=== PATIENT | male | born 1950 | race Caucasian/White ===

== ENCOUNTER 2021-01-21 11:20 | Outpatient (REF) | payer MEDICARE, SELFPAY ==
--- NOTE | ~2021-01-21 | XR_ITS ---
EXAMINATION: XR HIP, LEFT CLINICAL INFORMATION: Left hip pain COMPARISON: None TECHNIQUE: AP view pelvis is performed along with AP and frog-lateral projections left hip for a total of 3 views. FINDINGS: The left hip shows no fracture or dislocation or destructive process. There is no focal joint narrowing or erosive change or chondrocalcinosis. Soft tissue planes appear normal. The SI joints and pubis show no diastases. The bony pelvis is intact. No destructive process. There are degenerative changes lower lumbar spine with disc narrowing L4-L5 and likely at L5-S1. 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 XR/XR hip LT w PEL1V IMPRESSION: 1. Unremarkable left hip. No joint narrowing or erosive change. 2. Degenerative changes lumbosacral spine. 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
== END 2021-01-21 11:21 | disposition home or self-care (01) ==
LOC: HO.HMGCX 11:20
PROVIDERS: Visit Provider Hospitalist
DX: M25.552 Pain in left hip (principal)
CPT/HCPCS: 73502

== ENCOUNTER 2021-04-23 16:04 | Observation (INO) | payer MEDICARE, OTHER, SELFPAY ==
[2021-04-23] VITALS (9 sets, daily range): BP systolic 104–154; BP diastolic 0–104; PULSE 82–100; RESP 14–20; TEMP 36.6–36.7; O2SAT 96–97; BMI 43.6
--- NOTE | ~2021-04-23 | XR_ITS ---
EXAMINATION: XR CHEST CLINICAL INFORMATION: New onset atrial fibrillation COMPARISON: None available TECHNIQUE: Frontal portable upright view of the chest was obtained. FINDINGS: Devices overlie the patient. The transverse diameter of the trachea is low normal. Cardiac size is within normal limits. There is no hilar mass. The vasculature is normal. There is no consolidation or edema. No significant pleural fluid or pneumothorax. Healed posterolateral right lower rib deformity. XR/XR chest 1V IMPRESSION: No pneumonia or edema.
--- NOTE | 2021-04-23 16:27 | ECG_ITS ---
Test Reason : ARRHYTHMIA Blood Pressure : / mmHG Vent. Rate : 089 BPM Atrial Rate : 067 BPM P-R Int : 000 ms QRS Dur : 080 ms QT Int : 342 ms P-R-T Axes : 000 -05 -05 degrees QTc Int : 416 ms Atrial fibrillation Low voltage QRS Nonspecific ST abnormality Left axis deviation Abnormal ECG When compared with ECG of 28-MAR-2016 15:18, Atrial fibrillation is new Heart rate has increased Nonspecific ST abnormality is new Referred By: Aurelia Cortes Electronically Signed By:ALBERTO YEE MD
--- NOTE | 2021-04-23 16:36 | ED.GENADULT ---
HPI - General Adult General Chief complaint: General Medical Stated complaint: afib Time Seen by Provider: 04/23/21 16:12 Source: patient and EMS Mode of arrival: EMS History of Present Illness HPI narrative: 70-year-old male with past medical history of hypertension, anxiety, osteoarthritis, iron deficiency anemia, sleep apnea, hyperlipidemia, cigarette smoking, atherosclerosis, AVILEZ, BIBA from PCP office s/p syncopal episode [employer] [facility]. Per notes in system patient stood up to be weighed, became lightheaded and diaphoretic and reports near-syncopal episode, was noted to be hypertensive 178/108 and tachycardic to 102 in rapid AFib which is a new diagnosis for the patient. Patient reports symptomatic improvement at present. Denies headache, CP/SOB during incident or now. Denies numbness, tingling, fever, chills, cough, LE edema, recent trauma history blood clots, does not take anticoagulation Related Data Previous Rx's Medication Instructions Recorded oxycodone-acetaminophen 10 mg-325 1 tab PO Q6H PRN #10 tab 01/21/21 mg tablet (Percocet) prednisone 20 mg tablet 20 mg PO .COMPLEX #18 tab 01/21/21 Allergies Allergy/AdvReac Type Severity Reaction Status Date / Time No Known Allergies Allergy Verified 04/23/21 16:18 [No Known Allergies*] Review of Systems Review of Systems: Constitutional: No Fever, No Chills, No Fatigue, No Malaise ENT/Mouth: No Ear Pain, No Nasal Congestion, No sore throat Eyes: No Eye Pain, No Swelling, No Redness, No Vision Changes Cardiovascular: No Chest Pain, No SOB, No Dyspnea on Exertion, No Orthopnea, No Edema, No Palpitations Respiratory: No Cough, No Dyspnea Gastrointestinal: + Nausea (resolved), No Vomiting, No Diarrhea, No Constipation, No Abdominal pain Genitourinary:No Dysuria, No Urinary Frequency, No Hematuria, No Urinary Incontinence, No Flank Pain Musculoskeletal: No joint pain, No Myalgias, No Joint Swelling Skin: No Skin Lesions, No rash Neuro: No Weakness, No Numbness, No Paresthesias, No Loss of Consciousness,+near syncope, + lightheadedness (resolved), No Headache Yes all other systems are reviewed and are negative Neurologic: Denies Abnormal speech present [facility] Past Medical History Attestation statement: The following information was validated with the patient. Medical History (Updated 04/23/21 @ 17:57 by BRADEN Velez) Anxiety Atherosclerosis of [place] coronary artery of [place] heart with angina pectoris Dyslipidemia HTN (hypertension) Leg edema Reactive depression Sleep apnea Social History Social History Advance Directives: No Advance Directives Information Provided: No Physical Exam Vital Signs: Vital Signs: Last Vital Signs Temp 98 F 04/23/21 16:31 Pulse 90 04/23/21 17:17 Resp 14 04/23/21 16:31 BP 154/104 H 04/23/21 17:17 Pulse Ox 96 04/23/21 16:31 Body Mass Index 43.6 Const: General: cooperative, healthy appearing, no acute distress, well developed, alert and awake Orientation/consciousness: patient oriented x3 Limitations: no limitations HENMT: Head: Yes normal to inspection Ears: hearing grossly normal bilaterally General nose exam: Normal external nose present Face and sinus: Yes normal facial exam Eyes: General: appearance normal, both eyes and all related structures Pupils: Equal, round and reactive pupils present EOM: EOMs intact bilaterally Neck: Neck: Yes normal visual inspection and Yes no meningeal signs Resp: Effort & Inspection: normal respiratory effort Auscultation: clear to auscultation bilaterally, no rales, no rhonchi and no wheezes Cardio: Rhythm: abnormal rhythm Heart sounds: S1 normal heart sound present and S2 normal heart sound present GI: Inspection: Yes normal to inspection Palpation (GI): Soft to palpation, nontender, no guarding and not rigid Skin: Rashes: no rashes Wounds: no wounds Neuro: General: patient oriented x3, tone normal, moves all extremities, no meningeal signs, no focal motor deficits and CN's II-XI intact bilaterally Cranial nerves: Yes CN's II-XII intact bilaterally and Yes Equal, round and reactive pupils present Cognition (Neuro): normal cognition Speech: No Abnormal speech present Gait exam (Neuro): Normal gait present Motor exam (neuro): 5/5 motor strength present throughout, Pronator motor function not present and no tremor noted Coordination: [id number] test normal Romberg Test: Negative Extrem: Other: +1 bilateral lower extremity pitting edema General: Yes normal to inspection Course Course Course Narrative: -heart rate ranging between 92-115 >> will give 10 mg of IV Diltiazem and re-evaluate -173-- no leukocytosis, Initial troponin 6.4 > will obtain 3hr repeat. BNP mildly elevated at 154 > plan to admit for observation -patient given 1st dose of Eliquis in the ED. -175--patient admitted to hospitalist team Medical Decision Making [facility] Narrative Medical decision making narrative: 70-year-old male with past medical history of hypertension, anxiety, osteoarthritis, iron deficiency anemia, sleep apnea, hyperlipidemia, cigarette smoking, atherosclerosis, AVILEZ, BIBA from PCP office s/p syncopal episode [employer]. Per notes in system patient stood up to be weighed, became lightheaded and diaphoretic and reports near-syncopal episode, was noted to be hypertensive 178/108 and tachycardic to 102 in rapid AFib which is a new diagnosis for the patient.On exam tachycardic 89-105 in AFib, NAD/nontoxic-appearing, no focal neuro deficits, lungs CTA, 1+ bilateral lower extremity pitting edema. Concern for new onset AFib. Rule out ACS vs CHF vs infectious etiology/metabolic abnormalities Plan: EKG, labs, UA, CXR, orthostatics Patient's [id number] Score =3 Lab Data Result diagrams: 04/23/21 17:03 04/23/21 17:03 Labs: Lab Results 04/23/21 04/23/21 04/23/21 Range/Units 17:03 17:03 17:03 WBC 9.4 (4.8-10.8) X10*3/uL RBC 4.71 (4.60-5.80) X10*6/uL Hgb 14.1 (14.0-18.0) g/dl Hct 41.7 L (42-52) % MCV 88.5 (80-98) fL MCH 29.9 (27.0-33.0) pg MCHC 33.8 (31.0-36.0) g/dl RDW 13.2 (11.0-16.0) % Plt Count 194 (160-400) X10*3/uL MPV 9.8 (9.4-12.4) fL Immature Gran % (Auto) 0.5 H (0.0-0.4) % Neut % (Auto) 74.5 H (45-73) % Lymph % (Auto) 14.5 L (20-40) % Harlan % (Auto) 8.1 (2-11) % Eos % (Auto) 1.7 (0-4) % Baso % (Auto) 0.7 (0-2) % Lymph # (Auto) 1.4 (1.2-4.9) X10*3/uL Harlan # (Auto) 0.8 (0.1-1.2) X10*3/uL Eos # (Auto) 0.2 (0.0-0.4) X10*3/uL Baso # (Auto) 0.1 (0.0-0.2) X10*3/uL Abs Immat Gran (auto) 0.05 H (0.00-0.03) X10*3/uL Absolute Neuts (auto) 7.0 (2.0-8.3) X10*3/uL Absolute Nucleated RBC 0.000 (0.0-0.012) X10*3/uL Nucleated RBC % (auto) 0.0 (0.0-0.2) /100WBC PT (9.9-13.0) SEC INR (0.9-1.1) APTT (24.1-38.0) SEC Sodium 137 (135-145) mmol/L Potassium 4.5 (3.3-5.1) mmol/L Chloride 104 (96-108) mmol/L Carbon Dioxide 23 (22-29) mmol/L Anion Gap 15 (12-20) BUN 19 H (9-16) mg/dL Creatinine 1.08 (0.5-1.4) mg/dL Estim Creat Clear Calc 95.7 Estimated GFR > 60 Random Glucose 98 (60-115) mg/dL Calcium 9.2 (8.4-10.2) mg/dL Magnesium 1.7 (1.6-2.6) mg/dL Total Bilirubin 0.7 (0.0-1.0) mg/dL Direct Bilirubin 0.3 (0.0-0.5) mg/dL AST 16 (5-37) U/L ALT 11 (0-40) U/L Alkaline Phosphatase 75 (39-117) U/L Troponin I High Sens 6.4 (<3.5-35.0) ng/L B-Natriuretic Peptide (<100) pg/mL Total Protein 7.2 (6.5-8.0) g/dL Albumin 4.0 (3.5-5.0) g/dL COVID-19 (ELDA) (Negative) COVID-19 Clin Com 04/23/21 04/23/21 04/23/21 Range/Units 17:03 17:03 17:03 WBC (4.8-10.8) X10*3/uL RBC (4.60-5.80) X10*6/uL Hgb (14.0-18.0) g/dl Hct (42-52) % MCV (80-98) fL MCH (27.0-33.0) pg MCHC (31.0-36.0) g/dl RDW (11.0-16.0) % Plt Count (160-400) X10*3/uL MPV (9.4-12.4) fL Immature Gran % (Auto) (0.0-0.4) % Neut % (Auto) (45-73) % Lymph % (Auto) (20-40) % Harlan % (Auto) (2-11) % Eos % (Auto) (0-4) % Baso % (Auto) (0-2) % Lymph # (Auto) (1.2-4.9) X10*3/uL Harlan # (Auto) (0.1-1.2) X10*3/uL Eos # (Auto) (0.0-0.4) X10*3/uL Baso # (Auto) (0.0-0.2) X10*3/uL Abs Immat Gran (auto) (0.00-0.03) X10*3/uL Absolute Neuts (auto) (2.0-8.3) X10*3/uL Absolute Nucleated RBC (0.0-0.012) X10*3/uL Nucleated RBC % (auto) (0.0-0.2) /100WBC PT 11.3 (9.9-13.0) SEC INR 1.0 (0.9-1.1) APTT 30.1 (24.1-38.0) SEC Sodium (135-145) mmol/L Potassium (3.3-5.1) mmol/L Chloride (96-108) mmol/L Carbon Dioxide (22-29) mmol/L Anion Gap (12-20) BUN (9-16) mg/dL Creatinine (0.5-1.4) mg/dL Estim Creat Clear Calc Estimated GFR Random Glucose (60-115) mg/dL Calcium (8.4-10.2) mg/dL Magnesium (1.6-2.6) mg/dL Total Bilirubin (0.0-1.0) mg/dL Direct Bilirubin (0.0-0.5) mg/dL AST (5-37) U/L ALT (0-40) U/L Alkaline Phosphatase (39-117) U/L Troponin I High Sens (<3.5-35.0) ng/L B-Natriuretic Peptide 154 H (<100) pg/mL Total Protein (6.5-8.0) g/dL Albumin (3.5-5.0) g/dL COVID-19 (ELDA) Negative (Negative) COVID-19 Clin Com See Note ECG Data Attestation: I personally reviewed and interpreted this ECG as follows: Interpretation: EKG AFib at a rate of 89 QRS 80 QTC 416 Nonischemic/no STEMI Low-voltage QRS Discharge Plan Discharge Clinical Impression: New onset a-fib, Near syncope Patient Disposition: Admitted As Inpatient Prescriptions: No Action oxycodone-acetaminophen [Percocet] 10-325 mg tablet 1 tab PO Q6H PRN (Reason: pain) Qty: 10 RF: 0 prednisone 20 mg tablet 20 mg PO .COMPLEX Qty: 18 RF: 0
[2021-04-23 17:09] LABS: MANUAL DIFF FLAG NO
[2021-04-23 17:10] LABS: Basophils Absolute Auto 0.1 X10*3/uL (0.0-0.2); Basophils Percent Auto 0.7 % (0-2); Eosinophils Absolute Auto 0.2 X10*3/uL (0.0-0.4); Eosinophils Percent Auto 1.7 % (0-4); Hematocrit 41.7 % (42-52); Hemoglobin 14.1 g/dl (14.0-18.0); Imm Gran Abs Auto 0.05 X10*3/uL (0.00-0.03); Imm Gran Pct Auto 0.5 % (0.0-0.4); Lymphocytes Absolute Auto 1.4 X10*3/uL (1.2-4.9); Lymphocytes Percent Auto 14.5 % (20-40); Mean Corpuscular HGB Conc 33.8 g/dl (31.0-36.0); Mean Corpuscular Hemoglobin 29.9 pg (27.0-33.0); Mean Corpuscular Volume 88.5 fL (80-98); Mean Platelet Volume 9.8 fL (9.4-12.4); Monocytes Absolute Auto 0.8 X10*3/uL (0.1-1.2); Monocytes Percent Auto 8.1 % (2-11); Neutrophils Percent Auto 74.5 % (45-73); Platelet Count 194 X10*3/uL (160-400); Red Blood Count 4.71 X10*6/uL (4.60-5.80); Red Cell Distribution Width 13.2 % (11.0-16.0); White Blood Count 9.4 X10*3/uL (4.8-10.8)
[2021-04-23 17:16] LABS: Prothrombin Time 11.3 SEC (9.9-13.0)
[2021-04-23 17:18] LABS: Partial Thromboplastin Time 30.1 SEC (24.1-38.0)
[2021-04-23 17:26] LABS: COVID-19 Test Negative (Negative); IDNOW Serial# 55D5AD1C
[2021-04-23 17:27] LABS: Alanine Aminotransferase 11 U/L (0-40); Alkaline Phosphatase 75 U/L (39-117); Anion Gap 15 (12-20); Aspartate Amino Transferase 16 U/L (5-37); Bilirubin Direct 0.3 mg/dL (0.0-0.5); Bilirubin Total 0.7 mg/dL (0.0-1.0); Blood Urea Nitrogen 19 mg/dL (9-16); Calcium 9.2 mg/dL (8.4-10.2); Carbon Dioxide 23 mmol/L (22-29); Chloride 104 mmol/L (96-108); Creatinine Clr Calc Pharmacy 95.7; Estimated Glomerular Filt Rate > 60; Glucose Random 98 mg/dL (60-115); Magnesium 1.7 mg/dL (1.6-2.6); Potassium 4.5 mmol/L (3.3-5.1); Sodium 137 mmol/L (135-145); Total Protein 7.2 g/dL (6.5-8.0)
[2021-04-23 17:31] LABS: B Type Natriuretic Peptide 154 pg/mL (<100); Troponin-I High Sensitivity 6.4 ng/L (<3.5-35.0)
--- NOTE | 2021-04-23 18:26 | P.HPHOSP_ITS ---
History of Present Illness Date of Service: 04/23/21 Chief Complaint: Dizziness 70-year-old male with history of coronary artery disease No details,, hypertension not on meds, hyperlipidemia on no medds, anxiety. He presented to outpatient clinic today for routine checkup when that while walking him he felt very dizzy and felt like he was going to pass staff and therefore sent to the emergency room where he was noted to be in atrial fibrillation with rapid ventricular response this being a 1st episode. In the ED he was given IV Cardizem 10 mg with a subsequent decrease in the heart rate he remained in atri al fibrillation yet the rate is much better controlled. He was also given apixaban 5 mg once. He reports no chest pain or shortness of breath. Review of Systems Review of Systems: Dizziness, no chest pain, no sob Yes all other systems are reviewed and are negative [facility] Medical History Anxiety Atherosclerosis of [place] coronary artery of [place] heart with angina pectoris Dyslipidemia HTN (hypertension) Leg edema Reactive depression Sleep apnea Family History (Updated 04/23/21 @ 18:27 by Willi Rogers MD) Other Brain cancer Pertinent family history: . Social History Advance Directives: No Advance Directives Information Provided: No Meds Allergies Allergy/AdvReac Type Severity Reaction Status Date / Time No Known Allergies Allergy Verified 04/23/21 16:18 [No Known Allergies*] Physical Exam Vital Signs and Narrative: Vital Signs: Last Vital Signs Temp 98 F 04/23/21 16:31 Pulse 90 04/23/21 17:17 Resp 14 04/23/21 16:31 BP 154/104 H 04/23/21 17:17 Pulse Ox 96 04/23/21 16:31 Body Mass Index 43.6 Constitutional Awake and Alert, No apparent distress HEENT, anicteric, normal eye movment Neck Supple, No lymphadenopathy Cardiovascular RRR, No M/R/G, S1 S2, No S3 S4, No pedal edema Respiratory Lungs clear, No respiratory distress Gastrointestinal Non tender, Non-distended Skin No rash,lower legs skin changes consistent with chronic venous stasis Neurological Alert & oriented x3 Psychological Appropriate affect Results Labs CBC and Chem 7: 04/23/21 17:03 04/23/21 17:03 Labs: Laboratory Results - last 24 hr 04/23/21 04/23/21 04/23/21 17:03 17:03 17:03 MCV 88.5 MCH 29.9 MCHC 33.8 RDW 13.2 Plt Count 194 MPV 9.8 Immature Gran % (Auto) 0.5 H Neut % (Auto) 74.5 H Lymph % (Auto) 14.5 L Maries % (Auto) 8.1 Eos % (Auto) 1.7 Baso % (Auto) 0.7 Lymph # (Auto) 1.4 Maries # (Auto) 0.8 Eos # (Auto) 0.2 Baso # (Auto) 0.1 Abs Immat Gran (auto) 0.05 H Absolute Neuts (auto) 7.0 Absolute Nucleated RBC 0.000 Nucleated RBC % (auto) 0.0 PT INR APTT Anion Gap 15 Estim Creat Clear Calc 95.7 Estimated GFR > 60 Random Glucose 98 Calcium 9.2 Magnesium 1.7 Total Bilirubin 0.7 Direct Bilirubin 0.3 AST 16 ALT 11 Alkaline Phosphatase 75 Troponin I High Sens 6.4 B-Natriuretic Peptide Total Protein 7.2 Albumin 4.0 COVID-19 (ELDA) COVID-19 Clin Com 04/23/21 04/23/21 04/23/21 17:03 17:03 17:03 MCV MCH MCHC RDW Plt Count MPV Immature Gran % (Auto) Neut % (Auto) Lymph % (Auto) Maries % (Auto) Eos % (Auto) Baso % (Auto) Lymph # (Auto) Maries # (Auto) Eos # (Auto) Baso # (Auto) Abs Immat Gran (auto) Absolute Neuts (auto) Absolute Nucleated RBC Nucleated RBC % (auto) PT 11.3 INR 1.0 APTT 30.1 Anion Gap Estim Creat Clear Calc Estimated GFR Random Glucose Calcium Magnesium Total Bilirubin Direct Bilirubin AST ALT Alkaline Phosphatase Troponin I High Sens B-Natriuretic Peptide 154 H Total Protein Albumin COVID-19 (ELDA) Negative COVID-19 Clin Com See Note Imaging Radiologist's Impressions: Impressions Chest X-Ray 04/23/21 16:27 IMPRESSION: No pneumonia or edema. Assessment and Plan (1) New onset a-fib: Status: Acute 70-year-old male with history of CAD an OS, hypertension not on medication, hyperlipidemia not on med presented with a dizziness and found to have new onset atrial fibrillation. Plan: New AFIB with RVR, now rate controlled following IV Cardizem. Will continue our Cardizem orally. Continue Eliquis for stroke prevention. Get Cardiology consultation and echocardiogram. Quality Stroke Does the patient have a stroke diagnosis?: No VTE Prior VTE?: No VTE Risk Level:: Medical - moderate - high VTE Device Contraindication: Treatment Not Indicated VTE Drug Contraindication: N/A - Med Ordered
[2021-04-23] MEDS: dilTIAZem HCL 50 MG/10 ML VIAL 10 MG IVPUSH (18:30)
[2021-04-23] MEDS: Apixaban 5 MG TABLET PO (18:30)
[2021-04-23 19:15] LABS: Thyroid Stimulating Hormone 0.91 uIU/mL (0.32-4.0)
--- NOTE | 2021-04-23 19:22 | PHA.MEDREC ---
Pharmacy Consult ? Medication Reconciliation Pharmacy has completed the medication reconciliation. Spoke with patient in ED and he is not taking any medications on a regular basis at home. .
[2021-04-23 20:08] LABS: Appearance Urine CLEAR; Color Urine YELLOW; Glucose Urine UA NEG (NEG); Leukocyte Esterase Urine NEG (NEG); Nitrite Urine NEG (NEG); Specific Gravity - Urine 1.025 (1.005-1.025); Urine Blood NEG (NEG); Urine Ketones NEG (NEG); Urine Protein NEG (NEG-TRACE)
[2021-04-23 20:24] LABS: Amphetamine Screen Urine Not Detected (Not Detect); Barbiturates, Urine Not Detected (Not Detect); Benzodiazepines Screen Urine Not Detected (Not Detect); Cannabinoid Screen Urine POSITIVE (Not Detect); Cocaine Screen Urine Not Detected (Not Detect); Fentanyl, urine Not Detected (Not Detect); Opiate Screen Urine Not Detected (Not Detect); Phencyclidine Screen Urine Not Detected (Not Detect)
[2021-04-23 20:25] LABS: Troponin-I High Sensitivity 5.6 ng/L (<3.5-35.0)
[2021-04-23] MEDS: Metoprolol Tartrate 25 MG TABLET PO (21:38)
--- NOTE | 2021-04-23 22:36 | PC.NURSE ---
spoke with pt sister as pt allowed. pt awaiting bed assignment, aware of plan to be admit. given pillow and blanket at this time. reports no ccomplaints.
--- NOTE | 2021-04-24 | ECG_ITS ---
Test Reason : AFIB Blood Pressure : / mmHG Vent. Rate : 086 BPM Atrial Rate : 113 BPM P-R Int : 000 ms QRS Dur : 078 ms QT Int : 354 ms P-R-T Axes : 000 -02 004 degrees QTc Int : 423 ms Atrial fibrillation Low voltage QRS Nonspecific ST abnormality Abnormal ECG When compared with ECG of 23-APR-2021 16:35, No significant change was found Referred By: Willi [facility] Electronically Signed By:ALBERTO YEE MD
--- NOTE | 2021-04-24 02:34 | PC.NURSE ---
pt is sleeping, no sign of distress.
[2021-04-24 05:37] VITALS: BP 119/70; PULSE 72
[2021-04-24 05:38] VITALS: BP 124/81; BP 159/102; PULSE 83; PULSE 86
[2021-04-24 07:34] VITALS: BP 142/95; PULSE 93; RESP 20; TEMP 37.1; O2SAT 97
[2021-04-24] MEDS: 0.9 % Sodium Chloride Flush 3 ML SYRINGE IVFLUSH (07:34)
[2021-04-24 08:13] LABS: Cholesterol 174 mg/dL; HDL Cholesterol 53 mg/dL; LDL Cholesterol Calculated 101 mg/dl; Triglycerides 102 mg/dL
[2021-04-24 08:46] VITALS: BP 145/82; PULSE 83
[2021-04-24] MEDS: Metoprolol Tartrate 25 MG TABLET PO (08:46)
--- NOTE | 2021-04-24 09:47 | MHC.CM.PN ---
Met with patient in regards to discharge planning. Patient lives with his mother, ambulates with a cane and had no services prior to coming to the hospital. Services not anticipated to be needed because patient is not homebound. PCP verified. Copy of HCP verifed to be on file. Obs notice explained and signed. Received [employer] vaccines on 11/06 and 12/04. Patient's sister will transport him home when he is medically stable.Continue to monitor for d/c needs.
--- NOTE | 2021-04-24 09:52 | P.DS_ITS ---
DS: Providers Provider Date of Service: 04/24/21 Date of admission: 04/23/21 18:32 Primary care physician: JOSE Alonzo Consults: 04/23/21 18:34 Consult to Cardiology Routine Consulting Provider: Edy Reveles Reason for consultation: new afig DS: Diagnosis Discharge Diagnosis (1) New onset a-fib: Status: Acute DS: Summary Hospital Course Hospital Course: Chief Complaint: Dizziness 70-year-old male with history of coronary artery disease No details,, hypertension not on meds, hyperlipidemia on no medds, anxiety.? He presented to outpatient clinic today for routine checkup when that while walking him he felt very dizzy and felt like he was going to pass staff and therefore sent to the emergency room where he was noted to be in atrial fibrillation with rapid ventricular response this being a 1st episode.? In the ED he was given IV Cardizem 10 mg with a subsequent decrease in the heart rate he remained in atrial fibrillation yet the rate is much better controlled.? He was also given apixaban 5 mg once.? He reports no chest pain or shortness of breath. Hospital course: Patient presented with dizziness and near syncope and noted to be in AFIB with RVR which is new to him, [id number]. In ED given IV cardizem which slowed slowed heart rate, cardiac enzymes negative. His heart rate remain controllled and started on Metoprolol 25 and Xarelto for anticoagulation and stroke prevention. Time Spent with Patient Time attestation: Total time spent providing and/or coordinating discharge services: Discharge coordination time: Greater than 30 minutes Quality: Stroke Does the patient have a stroke diagnosis?: No Physical Exam Vital Signs: Vital Signs: Last Vital Signs Temp 98.7 F 04/24/21 07:34 Pulse 83 04/24/21 08:46 Resp 20 04/24/21 07:34 BP 145/82 H 04/24/21 08:46 Pulse Ox 97 04/24/21 07:34 Body Mass Index 43.6 General: AO X 3, no acute distress Resp: CTA bilateral CVS: S1,S2, iregular iregular GI: +BS, NT, no distention Skin: No rash Neuro: motor grossly intact Psych: appropriate affect DS: Data Data Completed and Pending Labs on day of discharge: Laboratory Results - last 24 hr 04/23/21 04/23/21 04/23/21 17:03 17:03 17:03 WBC 9.4 RBC 4.71 Hgb 14.1 Hct 41.7 L MCV 88.5 MCH 29.9 MCHC 33.8 RDW 13.2 Plt Count 194 MPV 9.8 Immature Gran % (Auto) 0.5 H Neut % (Auto) 74.5 H Lymph % (Auto) 14.5 L [place] % (Auto) 8.1 Eos % (Auto) 1.7 Baso % (Auto) 0.7 Lymph # (Auto) 1.4 [place] # (Auto) 0.8 Eos # (Auto) 0.2 Baso # (Auto) 0.1 Abs Immat Gran (auto) 0.05 H Absolute Neuts (auto) 7.0 Absolute Nucleated RBC 0.000 Nucleated RBC % (auto) 0.0 PT INR APTT Sodium 137 Potassium 4.5 Chloride 104 Carbon Dioxide 23 Anion Gap 15 BUN 19 H Creatinine 1.08 Estim Creat Clear Calc 95.7 Estimated GFR > 60 Random Glucose 98 Calcium 9.2 Magnesium 1.7 Total Bilirubin 0.7 Direct Bilirubin 0.3 AST 16 ALT 11 Alkaline Phosphatase 75 Troponin I High Sens 6.4 B-Natriuretic Peptide Total Protein 7.2 Albumin 4.0 Triglycerides Cholesterol LDL Cholesterol, Calc HDL Cholesterol TSH 0.91 Urine Color Urine Appearance Urine pH Ur Specific [place] Urine Protein Urine Glucose (UA) Urine Ketones Urine Blood Urine Nitrite Ur Leukocyte Esterase Urine Opiates Screen Urine Fentanyl Screen Ur Barbiturates Screen Ur Phencyclidine Scrn Ur Amphetamines Screen U Benzodiazepines Scrn Urine Cocaine Screen U Marijuana (THC) Screen COVID-19 (ELDA) COVID-19 Clin Com 04/23/21 04/23/21 04/23/21 17:03 17:03 17:03 WBC RBC Hgb Hct MCV MCH MCHC RDW Plt Count MPV Immature Gran % (Auto) Neut % (Auto) Lymph % (Auto) [place] % (Auto) Eos % (Auto) Baso % (Auto) Lymph # (Auto) [place] # (Auto) Eos # (Auto) Baso # (Auto) Abs Immat Gran (auto) Absolute Neuts (auto) Absolute Nucleated RBC Nucleated RBC % (auto) PT 11.3 INR 1.0 APTT 30.1 Sodium Potassium Chloride Carbon Dioxide Anion Gap BUN Creatinine Estim Creat Clear Calc Estimated GFR Random Glucose Calcium Magnesium Total Bilirubin Direct Bilirubin AST ALT Alkaline Phosphatase Troponin I High Sens B-Natriuretic Peptide 154 H Total Protein Albumin Triglycerides Cholesterol LDL Cholesterol, Calc HDL Cholesterol TSH Urine Color Urine Appearance Urine pH Ur Specific [place] Urine Protein Urine Glucose (UA) Urine Ketones Urine Blood Urine Nitrite Ur Leukocyte Esterase Urine Opiates Screen Urine Fentanyl Screen Ur Barbiturates Screen Ur Phencyclidine Scrn Ur Amphetamines Screen U Benzodiazepines Scrn Urine Cocaine Screen U Marijuana (THC) Screen COVID-19 (ELDA) Negative COVID-19 Clin Com See Note 04/23/21 04/23/21 04/23/21 19:44 19:59 19:59 WBC RBC Hgb Hct MCV MCH MCHC RDW Plt Count MPV Immature Gran % (Auto) Neut % (Auto) Lymph % (Auto) [place] % (Auto) Eos % (Auto) Baso % (Auto) Lymph # (Auto) [place] # (Auto) Eos # (Auto) Baso # (Auto) Abs Immat Gran (auto) Absolute Neuts (auto) Absolute Nucleated RBC Nucleated RBC % (auto) PT INR APTT Sodium Potassium Chloride Carbon Dioxide Anion Gap BUN Creatinine Estim Creat Clear Calc Estimated GFR Random Glucose Calcium Magnesium Total Bilirubin Direct Bilirubin AST ALT Alkaline Phosphatase Troponin I High Sens 5.6 B-Natriuretic Peptide Total Protein Albumin Triglycerides Cholesterol LDL Cholesterol, Calc HDL Cholesterol TSH Urine Color YELLOW Urine Appearance CLEAR Urine pH 6.0 Ur Specific [place] 1.025 Urine Protein NEG Urine Glucose (UA) NEG Urine Ketones NEG Urine Blood NEG Urine Nitrite NEG Ur Leukocyte Esterase NEG Urine Opiates Screen Not Detected Urine Fentanyl Screen Not Detected Ur Barbiturates Screen Not Detected Ur Phencyclidine Scrn Not Detected Ur Amphetamines Screen Not Detected U Benzodiazepines Scrn Not Detected Urine Cocaine Screen Not Detected U Marijuana (THC) Screen POSITIVE H COVID-19 (ELDA) COVID-19 Clin Com 04/24/21 07:18 WBC RBC Hgb Hct MCV MCH MCHC RDW Plt Count MPV Immature Gran % (Auto) Neut % (Auto) Lymph % (Auto) [place] % (Auto) Eos % (Auto) Baso % (Auto) Lymph # (Auto) [place] # (Auto) Eos # (Auto) Baso # (Auto) Abs Immat Gran (auto) Absolute Neuts (auto) Absolute Nucleated RBC Nucleated RBC % (auto) PT INR APTT Sodium Potassium Chloride Carbon Dioxide Anion Gap BUN Creatinine Estim Creat Clear Calc Estimated GFR Random Glucose Calcium Magnesium Total Bilirubin Direct Bilirubin AST ALT Alkaline Phosphatase Troponin I High Sens B-Natriuretic Peptide Total Protein Albumin Triglycerides 102 Cholesterol 174 LDL Cholesterol, Calc 101 HDL Cholesterol 53 TSH Urine Color Urine Appearance Urine pH Ur Specific [place] Urine Protein Urine Glucose (UA) Urine Ketones Urine Blood Urine Nitrite Ur Leukocyte Esterase Urine Opiates Screen Urine Fentanyl Screen Ur Barbiturates Screen Ur Phencyclidine Scrn Ur Amphetamines Screen U Benzodiazepines Scrn Urine Cocaine Screen U Marijuana (THC) Screen COVID-19 (ELDA) COVID-19 Clin Com Discharge Plan Discharge Anticipated Discharge Date/Time: 04/24/21 09:50 Patient Disposition: Home, Self-Care Referrals: Reji Delgado, [employer] [Primary Care Provider] - 1 Week Discharge Medications: No Action No Known Home Meds RF: 0 Diet: advance to usual diet Activity on Discharge: As tolerated Stand Alone Forms: Patient Portal Discharge page Care Plan Goals: Control heart rate, improving stroke. Health Concerns: Atrial fibrillation Plan of Treatment: Take metoprolol as directed, take Xarelto to prevent stroke Assessment: As above
[2021-04-24] MEDS: Rivaroxaban 20 MG TABLET PO (10:13)
--- NOTE | 2021-04-24 10:31 | PM.CNCAR ---
History of Present Illness History of Present Illness Date of Service: 04/24/21 Requesting physician: [facility] Consult reason: atrial fibrillation and other Chief complaint: Atrial fibrillation, near syncope Narrative: I was requested to see Andre in cardiology consultation today for symptoms of near syncope and atrial fibrillation. He is a 70-year-old male who has not seen a primary care physician for few years. Has prior history of arthritis status post left knee replacement which as per him has limiting his activity level, obesity, hypertension but currently not on any medications. He present hospital yesterday after seeing his primary care physician for the 1st time yesterday. When he went into the examining room he suddenly felt lightheaded and felt like he was going to pass out. Evaluation for find that time was noted to be in atrial fibrillation rapid ventricular response and was also noted to be hypertensive. He was then referred to the emergency room. In the emergency room his rate has been controlled with after IV Cardizem. He did receive 1 dose of apixaban. His rate has generally been well controlled. He says this morning he feels like his baseline. He has not had any lightheadedness. His heart rate is been well controlled. He had no symptoms of palpitations, chest pain, shortness of breath yesterday. Has had no recent illnesses.His serial troponins are flat and within normal limits. His TSH is within normal limits. Review of Systems Constitutional: Constitutional: Reports no additional constitutional complaints Eyes: Eyes: Reports no additional eye complaints Cardiovascular: Cardiovascular: Denies chest pain, Denies irregular heart rhythm, Reports lightheadedness, Denies Loss of Consciousness, Denies palpitations and Denies dyspnea Respiratory: Respiratory: Reports no additional respiratory complaints and Denies dyspnea Gastrointestinal: Gastrointestinal: Reports no additional gastrointestinal complaints Musculoskeletal: Musculoskeletal: Reports no additional musculoskeletal complaints Integumentary/Breasts: Skin/Breast: Reports system reviewed and no additional complaints, except as docu Neurologic: Reports system reviewed and no additional complaints, except as documented Psychiatric: Psychiatric: Reports no additional psychiatric complaints Endocrine: Endocrine: Denies palpitations Hematologic/Lymphatic: Hematologic/Lymphatic: Reports no additional hematologic/lymphatic complaints Allergic/Immunologic: Allergic/Immunologic: Reports no additional allergic/immunologic complaints PMFSH Past Medical History Medical History Anxiety Atherosclerosis of [place] coronary artery of [place] heart with angina pectoris Dyslipidemia HTN (hypertension) Leg edema Reactive depression Sleep apnea Family History Family History Other Brain cancer Social History Social History Advance Directives: No Advance Directives Information Provided: No service: No Current occupational status: retired Meds Allergies Allergy/AdvReac Type Severity Reaction Status Date / Time No Known Allergies Allergy Verified 04/23/21 16:18 [No Known Allergies*] Active Medications: Current Medications Acetaminophen (Acetaminophen Supp 650 Mg Supp.Rect) 650 mg TN Q6H PRN PRN Reason: Pain, Mild (Pain Scale 1-3) Melatonin (Melatonin 3 Mg Tablet) 6 mg PO BEDTIME PRN PRN Reason: Insomnia Metoprolol Tartrate (Metoprolol Tartrate 25 Mg Tablet) 25 mg PO BID [facility]; Protocol Last Admin: 04/24/21 08:46 Dose: 25 mg Documented by: Pharmacy Consult (Consult Rx Perform Med Rec) 1 each MISCELLANE ONCE PRN PRN Reason: Consult order Rivaroxaban (Rivaroxaban 20 Mg Tablet) 20 mg PO DAILY [facility] Last Admin: 04/24/21 10:13 Dose: 20 mg Documented by: Sodium Chloride (0.9 % Sodium Chloride Flush 3 Ml Syringe) 3 ml IVFLUSH QSHIFT [facility] Last Admin: 04/24/21 07:34 Dose: 3 ml Documented by: Physical Exam Vital Signs: Vital Signs: Last Vital Signs Temp 98.7 F 04/24/21 07:34 Pulse 83 04/24/21 08:46 Resp 20 04/24/21 07:34 BP 145/82 H 04/24/21 08:46 Pulse Ox 97 04/24/21 07:34 Body Mass Index 43.6 Const: General: cooperative, comfortable, no acute distress, alert and awake Nutritional Appearance: obese Orientation/consciousness: patient oriented x3 HENMT: Head: Yes normocephalic and Yes atraumatic Neck: Neck: Yes trachea midline, Yes supple and Yes no JVD Chest: Chest palpation & inspection: normal inspection of the chest Resp: Effort & Inspection: normal respiratory effort Auscultation: clear to auscultation bilaterally Cardio: Jugular venous distension: no JVD Palpation: normal PMI Rate: regular rate Rhythm: abnormal rhythm irregularly irregular Heart sounds: S1 normal heart sound present, S2 normal heart sound present, no click, no gallops, no murmurs and no rubs GI: Inspection: Yes obesity Auscultation: normal bowel sounds Skin: General skin exam: no rashes or lesions noted Neuro: General: patient oriented x3 and no focal motor deficits Extrem: General: No clubbing, No cyanosis and Yes pedal edema Psych: Appearance: grossly normal Results Labs and Meds Result diagrams: 04/23/21 17:03 04/23/21 17:03 Lab results: Laboratory Results - last 24 hr 04/23/21 04/23/21 04/23/21 17:03 17:03 17:03 WBC 9.4 RBC 4.71 Hgb 14.1 Hct 41.7 L MCV 88.5 MCH 29.9 MCHC 33.8 RDW 13.2 Plt Count 194 MPV 9.8 Immature Gran % (Auto) 0.5 H Neut % (Auto) 74.5 H Lymph % (Auto) 14.5 L [place] % (Auto) 8.1 Eos % (Auto) 1.7 Baso % (Auto) 0.7 Lymph # (Auto) 1.4 [place] # (Auto) 0.8 Eos # (Auto) 0.2 Baso # (Auto) 0.1 Abs Immat Gran (auto) 0.05 H Absolute Neuts (auto) 7.0 Absolute Nucleated RBC 0.000 Nucleated RBC % (auto) 0.0 PT INR APTT Sodium 137 Potassium 4.5 Chloride 104 Carbon Dioxide 23 Anion Gap 15 BUN 19 H Creatinine 1.08 Estim Creat Clear Calc 95.7 Estimated GFR > 60 Random Glucose 98 Calcium 9.2 Magnesium 1.7 Total Bilirubin 0.7 Direct Bilirubin 0.3 AST 16 ALT 11 Alkaline Phosphatase 75 Troponin I High Sens 6.4 B-Natriuretic Peptide Total Protein 7.2 Albumin 4.0 Triglycerides Cholesterol LDL Cholesterol, Calc HDL Cholesterol TSH 0.91 Urine Color Urine Appearance Urine pH Ur Specific [place] Urine Protein Urine Glucose (UA) Urine Ketones Urine Blood Urine Nitrite Ur Leukocyte Esterase Urine Opiates Screen Urine Fentanyl Screen Ur Barbiturates Screen Ur Phencyclidine Scrn Ur Amphetamines Screen U Benzodiazepines Scrn Urine Cocaine Screen U Marijuana (THC) Screen COVID-19 (ELDA) COVID-19 Clin Com 04/23/21 04/23/2104/23/21 17:03 17:03 17:03 WBC RBC Hgb Hct MCV MCH MCHC RDW Plt Count MPV Immature Gran % (Auto) Neut % (Auto) Lymph % (Auto) [place] % (Auto) Eos % (Auto) Baso % (Auto) Lymph # (Auto) [place] # (Auto) Eos # (Auto) Baso # (Auto) Abs Immat Gran (auto) Absolute Neuts (auto) Absolute Nucleated RBC Nucleated RBC % (auto) PT 11.3 INR 1.0 APTT 30.1 Sodium Potassium Chloride Carbon Dioxide Anion Gap BUN Creatinine Estim Creat Clear Calc Estimated GFR Random Glucose Calcium Magnesium Total Bilirubin Direct Bilirubin AST ALT Alkaline Phosphatase Troponin I High Sens B-Natriuretic Peptide 154 H Total Protein Albumin Triglycerides Cholesterol LDL Cholesterol, Calc HDL Cholesterol TSH Urine Color Urine Appearance Urine pH Ur Specific [place] Urine Protein Urine Glucose (UA) Urine Ketones Urine Blood Urine Nitrite Ur Leukocyte Esterase Urine Opiates Screen Urine Fentanyl Screen Ur Barbiturates Screen Ur Phencyclidine Scrn Ur Amphetamines Screen U Benzodiazepines Scrn Urine Cocaine Screen U Marijuana (THC) Screen COVID-19 (ELDA) Negative COVID-19 Clin Com See Note 04/23/21 04/23/21 04/23/21 19:44 19:59 19:59 WBC RBC Hgb Hct MCV MCH MCHC RDW Plt Count MPV Immature Gran % (Auto) Neut % (Auto) Lymph % (Auto) [place] % (Auto) Eos % (Auto) Baso % (Auto) Lymph # (Auto) [place] # (Auto) Eos # (Auto) Baso # (Auto) Abs Immat Gran (auto) Absolute Neuts (auto) Absolute Nucleated RBC Nucleated RBC % (auto) PT INR APTT Sodium Potassium Chloride Carbon Dioxide Anion Gap BUN Creatinine Estim Creat Clear Calc Estimated GFR Random Glucose Calcium Magnesium Total Bilirubin Direct Bilirubin AST ALT Alkaline Phosphatase Troponin I High Sens 5.6 B-Natriuretic Peptide Total Protein Albumin Triglycerides Cholesterol LDL Cholesterol, Calc HDL Cholesterol TSH Urine Color YELLOW Urine Appearance CLEAR Urine pH 6.0 Ur Specific [place] 1.025 Urine Protein NEG Urine Glucose (UA) NEG Urine Ketones NEG Urine Blood NEG Urine Nitrite NEG Ur Leukocyte Esterase NEG Urine Opiates Screen Not Detected Urine Fentanyl Screen Not Detected Ur Barbiturates Screen Not Detected Ur Phencyclidine Scrn Not Detected Ur Amphetamines Screen Not Detected U Benzodiazepines Scrn Not Detected Urine Cocaine Screen Not Detected U Marijuana (THC) Screen POSITIVE H COVID-19 (ELDA) COVID-19 [facility] 04/24/21 07:18 WBC RBC Hgb Hct MCV MCH MCHC RDW Plt Count MPV Immature Gran % (Auto) Neut % (Auto) Lymph % (Auto) [place] % (Auto) Eos % (Auto) Baso % (Auto) Lymph # (Auto) [place] # (Auto) Eos # (Auto) Baso # (Auto) Abs Immat Gran (auto) Absolute Neuts (auto) Absolute Nucleated RBC Nucleated RBC % (auto) PT INR APTT Sodium Potassium Chloride Carbon Dioxide Anion Gap BUN Creatinine Estim Creat Clear Calc Estimated GFR Random Glucose Calcium Magnesium Total Bilirubin Direct Bilirubin AST ALT Alkaline Phosphatase Troponin I High Sens B-Natriuretic Peptide Total Protein Albumin Triglycerides 102 Cholesterol 174 LDL Cholesterol, Calc 101 HDL Cholesterol 53 TSH Urine Color Urine Appearance Urine pH Ur Specific [place] Urine Protein Urine Glucose (UA) Urine Ketones Urine Blood Urine Nitrite Ur Leukocyte Esterase Urine Opiates Screen Urine Fentanyl Screen Ur Barbiturates Screen Ur Phencyclidine Scrn Ur Amphetamines Screen U Benzodiazepines Scrn Urine Cocaine Screen U Marijuana (THC) Screen COVID-19 (ELDA) COVID-19 [facility] EKG shows atrial fibrillation with controlled ventricular response. No acute ST T wave changes Imaging Radiologist's impression: Impressions Chest X-Ray 04/23/21 16:27 IMPRESSION: No pneumonia or edema. Assessment and Plan (1) Near syncope: Status: Acute Patient presents symptoms of near syncope which are highly unusual for atrial fibrillation but can happen with rapid ventricular response. His symptoms have not resolved with rate control and he feels better. He has been ambulating. Can be discharged home. Advised adequate hydration. Advise adequate medical management and follow up as outpatient. He understands and agrees. (2) New onset a-fib: Status: Acute New onset atrial fibrillation in this elderly gentleman with no clear onset date. Could have happened yesterday with his symptoms but could be longer than that. Rate is adequately controlled at this point time. He has multiple risk factors including age, hypertension which is not managed, obstructive sleep apnea as well as obesity. This was discussed with him. Pathophysiology of atrial fibrillation was discussed in details. For now not knowing his exact onset at this point time will treat him with rate control. Start him on metoprolol 50 mg b.i.d. which will also help with his blood pressure control. Advised to monitor blood pressure at home and heart rate at home. His symptoms have resolved and I think he can be discharged home and will follow up with outpatient testing including echocardiogram, stress test on Holter monitor. Follow up in the office in 3-4 weeks time at which time will discuss rhythm control approach, will be most likely part will pursue given his new onset atrial fibrillation is age. This was discussed with him in details. CHADSVASc score of at least 2. Agree with oral anticoagulation therapy and Xarelto 20 mg inappropriate medication. This was discussed with him. He is agreeable. Will follow up as outpatient. Thank you for allowing me to partake in his care Procedures Date of Service Date of Service: 04/24/21
== END 2021-04-24 11:19 | disposition home or self-care (01) ==
LOC: HO.ED 17:57 → HO.EDOVER 18:52
PROVIDERS: Physician Assistant; Admitting Provider Internal Medicine; Emergency Provider Emergency Medicine; PCP Nurse Practitioner Family; Visit Provider Internal Medicine
DX: I48.91 Unspecified atrial fibrillation (principal); R55 Syncope and collapse; I25.119 Atherosclerotic heart disease of native coronary artery with unspecified angina pectoris; I10 Essential (primary) hypertension; I49.9 Cardiac arrhythmia, unspecified; E78.5 Hyperlipidemia, unspecified; D50.9 Iron deficiency anemia, unspecified; F41.8 Other specified anxiety disorders; F17.210 Nicotine dependence, cigarettes, uncomplicated; Z20.822 Contact with and (suspected) exposure to COVID-19; Z96.652 Presence of left artificial knee joint; Z79.899 Other long term (current) drug therapy
CPT/HCPCS: 36415; 71045; 80048; 80061; 80076; 80307; 81003; 83735; 83880; 84443; 84484; 85025; 85610; 85730; 87635; 93005; 96374; 99219; 99285

== ENCOUNTER → 2021-05-07 07:17 | Outpatient (REF) | payer MEDICARE, OTHER, SELFPAY ==
--- NOTE | ~2021-05-07 | NM_ITS ---
Myocardial perfusion study Indication: Atrial fibrillation to evaluate for myocardial ischemia Technique: The patient was brought in for a Lexiscan perfusion study on 05/07/2021. Patient performed low-level exercise and was injected 0.4 mg of Lexiscan intravenously. Within a minute of injection, 45 mCi of sestamibi was given intravenously. Images were obtained using the SPECT gamma camera interlaced with the gating device. Images were obtained in supine position. Resting perfusion study was performed on 05/08/2021. Patient was administered 45 mCi of sestamibi intravenously at rest. Images were then obtained in supine position. Images obtained with and without CT attenuation. Total DLP 194 mGy-cm. Images were processed with the software and compared side to side in short axis, horizontal long axis and vertical long axis views. Findings: The stress perfusion study showed nonattenuated show overall normal uptake of radiotracer in all segments of LV myocardium. Attenuation corrected images show minimally reduced uptake in the apex of the LV myocardium. There is suggestion of left ventricle hypertrophy. The gated study shows normal LV systolic function with visually estimated LVEF of greater than 50 %. LV cavity is normal in size. The gated study shows normal systolic wall thickening and contraction of segments. Resting study shows no change in perfusion pattern on attenuation corrected images. Gating at rest reveals normal systolic wall motion with ejection fraction at 53%. The findings are consistent with normal myocardial perfusion. NM/NM lazaro perf SPECT rest & str Impression: 1. Myocardial perfusion imaging study shows normal myocardial perfusion 2. Gated LVEF is 53% 3. Transient ischemic dilatation not present EKG is nondiagnostic for ischemia
--- NOTE | 2021-05-07 07:27 | CA_ITS ---
Acquisition Time: 2021-05-07 08:41:57 Total Exercise Time: 00:02:00 Test Indications: ABN EKG, SYNCOPE, AFIB Medications: METOPROLOL Protocol: LEXISCAN Max HR: 129 BPM 85% of Pred: 151 BPM Max BP: 134/078 mmHG Max Work Load: 1.0 METS Pharmacological stress test with Lexiscan injection, while sitting and kicking his legs, without anginal symptoms, without arrythmia, with normotensive response to injection, with nondiagnostic EKG for ischemia. In recovery he reported nausea that was treated with Aminophylline 75mg IVP with resolution of symptom. Nuclear images pending. Test reviewed with Dr Daigle. Referred By: Edy Reveles Overread By: TERRY DAVILA
--- NOTE | 2021-05-07 07:27 | CA_ITS ---
Transthoracic Echocardiogram Patient (Last, First, Middle): Andre Tabor, Gender: Male Date of : 1950 Age: 70 Procedure Date: 05/07/2021 Procedure Type: Transthoracic Echocardiogram Location: OP Height: 182.88 cm Weight: 136.08 kg BSA: 2.53 m2 Heart Rate: bpm BP: 128 / 80 mmHg Electro Mechanical Technician: Referring MD: Edy Reveles MD Symptoms: I48.91 - Unspecified atrial fibrillation Study Quality: Fair ECG Rhythm: Atrial Fibrillation Conclusions: - The left ventricular systolic function is normal. The calculated ejection fraction is 67% by biplane method. - There is moderate aortic valve stenosis. Findings Left Ventricle Normal left ventricular cavity size. There is mildly increased left ventricular wall thickness. The left ventricular systolic function is normal. The calculated ejection fraction is 67% by biplane method. There is no evidence of regional wall motion abnormalities. Diastolic function is indeterminate on the basis of available data. Right Ventricle Normal right ventricular cavity size and systolic function. Atria The left atrium is moderately dilated. The right atrium is normal in size. Aortic Valve There is moderate calcification of the aortic valve. There is moderate aortic valve stenosis. The peak aortic velocity is 3.37 m/s with a calculated peak gradient of 45 mmHg. The mean gradient is 25 mmHg. The aortic valve area is 1.00 cm2. There is no aortic valve regurgitation. Dimensionless index 0.32. Mitral Valve The mitral valve appears normal. There is no mitral valve regurgitation. There is no mitral valve stenosis. Pulmonic Valve The pulmonic valve was not well visualized. Tricuspid Valve Normal tricuspid valve structure. There is mild tricuspid valve regurgitation. The pulmonary artery systolic pressure is normal. Great Vessels The asc aorta is normal in size. Venous The inferior vena cava is normal in size and collapses greater than 50% with inspiration. Pericardium/Pleural There is no evidence of pericardial effusion. Prior Study Comparison Changes noted compared to prior study dated: 04/10/2018. Progression of aortic valve stenosis. Measurements 2D Linear Measurements IVSd: 1.28 0.6-0.9/0.6-1.0 cm LVIDd: 4.66 3.9-5.3/4.2-5.9 cm LVIDd Index: 1.84 2.4-3.2/2.2-3.1 cm/m2 LVIDs: 3.00 2.0-3.6 cm LVPWd: 1.29 0.7-1.1 cm Ao Root: 3.50 2.1-3.5 cm LA Diam: 5.00 2.7-3.8/3.0-4.0 cm LAIDs Index: 1.98 1.5-2.3 cm/m2 LV Mass: 287.81 67-162/88-224 g LV Mass Index: 113.76 43-95/49-115 g/m2 LVOT Diam: 2.10 3.0+(-)1.3 cm 2D Systolic Function EF 4C: 68.90 >55% EF 2C: 63.30 >55% EF BiP: 66.50 >55% Mitral Valve E'Lateral: 10.00 E'Medial: 8.49 Aortic Valve AoV Pk Skip: 3.37 AoV Mn Skip: 2.30 AoV VTI: 0.74 AoV Pk Grad: 45.00 Aov Mn Grad: 25.00 JANIE Cont.VTI: 1.00 LVOT LVOT Pk Skip: 0.99 LVOT Mn Skpi: 0.65 LVOT VTI: 0.21 LVOT Pk Grad: 4.00 LVOT Mn Grad: 2.00 LVOT Diam: 2.10 LVOT Area: 3.46 Diastolic Function E'Medial: 8.49 E' Laterial: 10.00 Right Ventricle TAPSE (mm): 26.00 Tricuspid Valve TR Pk Skip: 2.08 TR Pk Grad: 17.00 Great Vessels Aorta Ao Root-2D: 3.50 2.0-3.7 cm Ao Asc: 3.70 2.1-3.4 cm Pulmonary Valve PV Pk Skip: 1.04 Peak PV Grad: 4.00 Updated in Other Vendor System with Status of Final Nikita Hancock MD electronically signed on 05/08/2021 12:38:15 PM with status of Final
== END ==
LOC: HO.CARD 07:17
PROVIDERS: Visit Provider Internal Medicine Cardiovascular Disease
DX: I48.91 Unspecified atrial fibrillation (principal); G47.30 Sleep apnea, unspecified; R55 Syncope and collapse
CPT/HCPCS: 78452; 93017; 93306; A9500; J0280; J2785

== ENCOUNTER → 2021-05-08 08:13 | Outpatient (REF) | payer MEDICARE, OTHER, SELFPAY ==
--- NOTE | 2021-05-08 08:22 | HM_ITS ---
Conclusion: 1. Patient was monitored for total period of 2 days and 19 hours 2. Baseline rhythm is atrial fibrillation with average heart rate of 83 beats per minute. Fastest heart rate is 181 beats per minute. Patient does not have significant increase rapid ventricular response to atrial fibrillation. Overall adequate rate control 3. One pause up to 3.3 seconds noted 4. Rare PVCs noted 5. No patient reported events MTDD
== END ==
LOC: HO.CARD 08:13
PROVIDERS: PCP Nurse Practitioner Family; Visit Provider Internal Medicine Cardiovascular Disease
DX: I48.91 Unspecified atrial fibrillation (principal); R55 Syncope and collapse
CPT/HCPCS: 93242

== ENCOUNTER → 2021-05-15 12:26 | Outpatient (BNVA) | payer MEDICARE, OTHER, SELFPAY | PROVIDERS: PCP Nurse Practitioner Family; Referring Provider Nurse Practitioner Family; Visit Provider Internal Medicine Cardiovascular Disease | DX: I48.91 Unspecified atrial fibrillation (principal); I10 Essential (primary) hypertension | CPT/HCPCS: 99212 ==

== ENCOUNTER → 2021-05-22 08:05 | Outpatient (BNVA) | payer MEDICARE, OTHER, SELFPAY | PROVIDERS: PCP Nurse Practitioner Family; Visit Provider Internal Medicine | DX: I48.91 Unspecified atrial fibrillation (principal); Z51.81 Encounter for therapeutic drug level monitoring; Z79.01 Long term (current) use of anticoagulants | CPT/HCPCS: 85610; 99202 ==

== ENCOUNTER → 2021-05-24 08:11 | Outpatient (BNVA) | payer MEDICARE, OTHER, SELFPAY | PROVIDERS: PCP Nurse Practitioner Family; Visit Provider Internal Medicine | DX: I48.91 Unspecified atrial fibrillation (principal); Z51.81 Encounter for therapeutic drug level monitoring; Z79.01 Long term (current) use of anticoagulants | CPT/HCPCS: 85610; 99211 ==

== ENCOUNTER 2021-05-28 09:10 | Outpatient (REF) | payer MEDICARE, OTHER, SELFPAY ==
[2021-05-28 09:46] LABS: Prothrombin Time 84.5 SEC (9.9-13.0)
[2021-05-28 09:49] LABS: INTERNATIONAL NORM RATIO 7.1 (0.9-1.1)
== END 2021-05-28 09:11 | disposition home or self-care (01) ==
LOC: HO.LAB 09:10
PROVIDERS: PCP Nurse Practitioner Family; Visit Provider Internal Medicine
DX: I48.91 Unspecified atrial fibrillation (principal); Z51.81 Encounter for therapeutic drug level monitoring; Z79.01 Long term (current) use of anticoagulants
CPT/HCPCS: 36415; 85610

== ENCOUNTER → 2021-05-30 08:01 | Outpatient (BNVA) | payer MEDICARE, OTHER, SELFPAY | PROVIDERS: PCP Nurse Practitioner Family; Visit Provider Internal Medicine | DX: I48.91 Unspecified atrial fibrillation (principal); Z51.81 Encounter for therapeutic drug level monitoring; Z79.01 Long term (current) use of anticoagulants | CPT/HCPCS: 85610; 99211 ==

== ENCOUNTER → 2021-06-03 07:55 | Outpatient (BNVA) | payer MEDICARE, OTHER, SELFPAY | PROVIDERS: PCP Nurse Practitioner Family; Visit Provider Internal Medicine | DX: I48.91 Unspecified atrial fibrillation (principal); Z51.81 Encounter for therapeutic drug level monitoring; Z79.01 Long term (current) use of anticoagulants | CPT/HCPCS: 85610; 99211 ==

== ENCOUNTER → 2021-06-05 08:09 | Outpatient (BNVA) | payer MEDICARE, OTHER, SELFPAY | PROVIDERS: PCP Nurse Practitioner Family; Visit Provider Internal Medicine | DX: I48.91 Unspecified atrial fibrillation (principal); Z51.81 Encounter for therapeutic drug level monitoring; Z79.01 Long term (current) use of anticoagulants | CPT/HCPCS: 85610; 99211 ==

== ENCOUNTER → 2021-06-10 08:05 | Outpatient (BNVA) | payer MEDICARE, OTHER, SELFPAY | PROVIDERS: PCP Nurse Practitioner Family; Visit Provider Internal Medicine | DX: I48.91 Unspecified atrial fibrillation (principal); Z51.81 Encounter for therapeutic drug level monitoring; Z79.01 Long term (current) use of anticoagulants | CPT/HCPCS: 85610; 99211 ==

== ENCOUNTER 2021-06-17 08:25 | Outpatient (REF) | payer MEDICARE, OTHER, SELFPAY ==
[2021-06-17 11:50] LABS: Appearance Urine CLEAR; Color Urine YELLOW; Glucose Urine UA NEG (NEG); Leukocyte Esterase Urine NEG (NEG); Nitrite Urine NEG (NEG); Urine Blood NEG (NEG); Urine Ketones NEG (NEG); Urine Protein TRACE MG/DL (NEG-TRACE)
[2021-06-17 12:05] LABS: Alanine Aminotransferase 11 U/L (0-40); Albumin Level 3.8 g/dL (3.5-5.0); Alkaline Phosphatase 81 U/L (39-117); Anion Gap 12 (12-20); Aspartate Amino Transferase 16 U/L (5-37); Bilirubin Total 0.5 mg/dL (0.0-1.0); Blood Urea Nitrogen 19 mg/dL (9-16); Carbon Dioxide 26 mmol/L (22-29); Chloride 106 mmol/L (96-108); Cholesterol 187 mg/dL; Estimated Glomerular Filt Rate > 60; Glucose Fasting 90 mg/dL (60-99); HDL Cholesterol 54 mg/dL; LDL Cholesterol Calculated 109 mg/dl; Potassium 4.8 mmol/L (3.3-5.1); Sodium 139 mmol/L (135-145); Total Protein 7.1 g/dL (6.5-8.0); Triglycerides 123 mg/dL
[2021-06-17 12:27] LABS: TSH reflex Free T4 0.96 uIU/mL (0.32-4.0)
== END 2021-06-17 08:26 | disposition home or self-care (01) ==
LOC: HO.HMGCLDS 08:25
PROVIDERS: PCP Nurse Practitioner Family; Visit Provider Nurse Practitioner Family
DX: I48.91 Unspecified atrial fibrillation (principal)
CPT/HCPCS: 36415; 80053; 80061; 81003; 84443

== ENCOUNTER → 2021-06-18 08:04 | Outpatient (BNVA) | payer MEDICARE, OTHER, SELFPAY | PROVIDERS: PCP Nurse Practitioner Family; Visit Provider Internal Medicine | DX: I48.91 Unspecified atrial fibrillation (principal); Z51.81 Encounter for therapeutic drug level monitoring; Z79.01 Long term (current) use of anticoagulants | CPT/HCPCS: 85610; 99211 ==

== ENCOUNTER → 2021-06-21 09:04 | Outpatient (BNVA) | payer MEDICARE, OTHER, SELFPAY | PROVIDERS: PCP Nurse Practitioner Family; Visit Provider Internal Medicine | DX: I48.91 Unspecified atrial fibrillation (principal); Z51.81 Encounter for therapeutic drug level monitoring; Z79.01 Long term (current) use of anticoagulants | CPT/HCPCS: 85610; 99211 ==

== ENCOUNTER → 2021-06-25 08:23 | Outpatient (BNVA) | payer MEDICARE, OTHER, SELFPAY | PROVIDERS: PCP Nurse Practitioner Family; Visit Provider Internal Medicine | DX: I48.91 Unspecified atrial fibrillation (principal); Z51.81 Encounter for therapeutic drug level monitoring; Z79.01 Long term (current) use of anticoagulants | CPT/HCPCS: 85610; 99211 ==

== ENCOUNTER → 2021-07-01 08:04 | Outpatient (BNVA) | payer MEDICARE, OTHER, SELFPAY | PROVIDERS: PCP Nurse Practitioner Family; Visit Provider Internal Medicine | DX: I48.91 Unspecified atrial fibrillation (principal); Z51.81 Encounter for therapeutic drug level monitoring; Z79.01 Long term (current) use of anticoagulants | CPT/HCPCS: 85610; 99211 ==

== ENCOUNTER → 2021-07-08 08:02 | Outpatient (BNVA) | payer MEDICARE, OTHER, SELFPAY | PROVIDERS: PCP Nurse Practitioner Family; Visit Provider Internal Medicine | DX: I48.91 Unspecified atrial fibrillation (principal); Z51.81 Encounter for therapeutic drug level monitoring; Z79.01 Long term (current) use of anticoagulants | CPT/HCPCS: 85610; 99211 ==

== ENCOUNTER → 2021-07-15 07:57 | Outpatient (BNVA) | payer MEDICARE, OTHER, SELFPAY | PROVIDERS: PCP Nurse Practitioner Family; Visit Provider Internal Medicine | DX: I48.91 Unspecified atrial fibrillation (principal); Z51.81 Encounter for therapeutic drug level monitoring; Z79.01 Long term (current) use of anticoagulants | CPT/HCPCS: 85610; 99211 ==

== ENCOUNTER → 2021-07-22 08:05 | Outpatient (BNVA) | payer MEDICARE, OTHER, SELFPAY | PROVIDERS: PCP Nurse Practitioner Family; Visit Provider Internal Medicine | DX: I48.91 Unspecified atrial fibrillation (principal); Z51.81 Encounter for therapeutic drug level monitoring; Z79.01 Long term (current) use of anticoagulants | CPT/HCPCS: 85610; 99211 ==

== ENCOUNTER 2021-07-22 08:43 | Inpatient (IN) | payer MEDICARE, OTHER, SELFPAY ==
--- NOTE | ~2021-07-22 | US_ITS ---
EXAMINATION: US VENOUS ULTRASOUND WITH DOPPLER LOWER EXTREMITY, LEFT CLINICAL INFORMATION: Left lower extremity redness and swelling. COMPARISON: None TECHNIQUE: Ultrasound of the deep veins is performed from the hip to the calf with compression sonography and color and pulse Doppler assessment. Spectral analysis with color-flow imaging is performed. FINDINGS: There is normal venous compression and respiratory variation and augmented flow. The visualized common femoral vein, superficial femoral vein, profunda femoral vein, popliteal vein, and the trifurcation region shows no evidence of deep venous thrombosis. There is no left popliteal cyst. Reniform left inguinal lymph nodes are seen measuring up to 2.5 cm with thin cortex. In the region of the palpable lump in the left knee anteriorly is a heterogeneous hypoechoic focus with echogenic components measuring approximately 5.3 x 2.8 x 5.0 cm. Color Doppler showed no internal vascular flow. US/US venous duplex LE LT IMPRESSION: 1. No evidence for deep venous thrombosis in the visualized veins of the left lower extremity. 2. Heterogeneous hypoechoic collection in the left anterior knee correlates with the palpable lump. This is nonspecific and could represent a hematoma. Correlate with trauma history. If this finding persists or enlarges, further evaluation with contrast-enhanced MRI is recommended for better characterization. 3. Mildly enlarged left inguinal lymph nodes are nonspecific. The overall appearance is benign and these may be reactive.
[2021-07-22 08:46] VITALS: BP 141/85; PULSE 86; RESP 19; TEMP 36.6; O2SAT 95; BMI 42.0
--- NOTE | 2021-07-22 12:28 | ED_ITS ---
HPI - General Adult General Chief complaint: General Medical Stated complaint: L knee pain Time Seen by Provider: 07/22/21 10:29 Source: patient Mode of arrival: wheelchair Limitations: no limitations History of Present Illness HPI narrative: 70 y/o male with history of AFib on Coumadin, HTN who presents with left knee and lower leg swelling and redness for the last 1 week which has been not improving with prescribed Keflex. He reports the swelling and redness started about 1 week ago. He denies any trauma. He went to urgent care on of last week and was prescribed Keflex 500 t.i.d.. He reports at [facility] he has had bilateral knee replacements with ongoing left knee pain for the last 3 years. He has been unable to bend his knee for the last 3 years and uses canes to ambulate. He denies any fevers at home. He reports the swelling and redness is not getting any better with the prescribed antibiotics. He is not diabetic. He feels a painful lump on the front part of his knee. MD complaint: Left knee and leg pain and redness. Onset (ago): day(s) (7) Location: lower extremity Radiation: extremity and distal Severity: severe Severity scale (1-10): 9 Quality: aching Pain Consistency: constant Relieving factors: none Exacerbating factors: movement Associated symptoms: denies other symptoms Treatments prior to arrival: none Related Data Home Medications Medication Instructions Recorded Confirmed naproxen sodium 220 mg tablet 220 mg PO BID PRN 07/22/21 07/22/21 warfarin 2.5 mg tablet 1.25 mg PO DAILY 07/22/21 07/22/21 Previous Rx's Medication Instructions Recorded metoprolol tartrate 50 mg tablet 50 mg PO BID 90 Days #180 tab 05/20/21 warfarin 2.5 mg tablet 2.5 mg PO DAILY #60 tab 06/05/21 cephalexin 500 mg capsule 500 mg PO TID #30 cap 07/19/21 Allergies Allergy/AdvReac Type Severity Reaction Status Date / Time No Known Allergies Allergy Verified 07/22/21 08:16 [No Known Allergies*] Review of Systems Review of Systems: Constitutional: No Fever, No Chills ENT/Mouth: No sore throat, No Rhinorrhea, No Swallowing Difficulty Cardiovascular: No Chest Pain, No SOB, No Orthopnea, + Edema Respiratory: No Cough, No Sputum, No Wheezing, No dyspnea Gastrointestinal: No Nausea, No Vomiting, No Diarrhea, No abdominal Pain Musculoskeletal: + joint pain, No Myalgias Skin: + Skin Lesions, No rash Neuro: No Weakness, No Numbness, No Dizziness, No Headache Psych: No Anxiety/Panic, No Depression Heme/Lymph: No Bruising, No Lymphadenopathy Endocrine: No Polyuria, No Polydipsia [facility] Past Medical History Medical History (Updated 07/22/21 @ 15:50 by BRADEN Sage) Anxiety Atherosclerosis of [place] coronary artery of [place] heart with angina pectoris Dyslipidemia HTN (hypertension) Leg edema Reactive depression Sleep apnea Surgical History History of evacuation of hematoma (~05/2015) History of revision of total replacement of left knee joint (~04/2016) History of total left knee replacement (~11/2015) History of total right knee replacement (TKR) (~04/2015) Family History Family History Other Brain cancer Social History Social History Housing: House Patient Tobacco Use Status: Former Tobacco user Quit Date: 5 years ago Advance Directives: No Advance Directives Information Provided: No service: No Current occupational status: previously employed and retired Current occupation: retired Current occupational exposures/hazards: No Physical Exam Vital Signs: Vital Signs: Last Vital Signs Temp 98 F 07/22/21 08:46 Pulse 86 07/22/21 08:46 Resp 19 07/22/21 08:46 BP 141/85 H 07/22/21 08:46 Pulse Ox 95 07/22/21 08:46 BMI result Body Mass Index 42.0 Appearance: Alert. Oriented X3. No acute distress. HEENT: normal inspection CVS: Normal heart rate and rhythm. Pulses normal. Respiratory: No respiratory distress. Skin: Skin warm and dry. Normal skin color. Normal skin turgor. No rashes. Extremities: left knee with severe swelling, moderately warm and tender throughout extending to lower portion of distal thigh and entire lower leg.. taught with tenderness anteriorly and centrally on the knee itself. no fluctuance. unable to flex. lower leg with 3+ pitting edema. Neuro: Oriented X 3. No motor deficit. No sensory deficit. gait not tested due to pain Course Course Course Narrative: 70-year-old male presenting with left knee pain, swelling, redness and warmth for the last 1 week. He has been on Keflex with no improv ement. He has notable left lower extremity swelling compared to the right. Will get ultrasound to rule out DVT. There is also concern for infection. He is unable to flex the left knee which is chronic for him. Will need to get CT scan and lab workup including INR & cultures. Reevaluation(s) Reevaluation #1: Ultrasound showing no DVT. There is a 5.3 x 2.8 x 5 cm echogenic heterogeneous hypoechoic focus on the left anterior knee. This is concerning for possible infection versus hematoma. He denies any trauma histor y. CT scan pending. No signs of sepsis at this time. VS unremarkable. Patient examined by Dr. Ji. Reevaluation #2: Significant delay in lab workup due to patient being difficult stick. Multiple staff members have tried with phlebotomy pending. Orthopedics was consulted who will be by to evaluate the patient. Reevaluation #3: Dr. Rodriguez examined the patient. No joint effusion or fluid in the knee was able to be expressed. Anteriorly there was a small 1 cm incision made with large amount of purulent material that was expressed. Area was packed with iodoform packing by Dr. Rodriguez. CT scan cancelled per his recommendations. At this time he does not think that the infection is within t he knee joint itself. IV vancomycin and Zosyn were ordered with plan for admission for cellulitis and superficial knee abscess. Plan for admission to hospitalist service with ortho consult. Consultations Consultation #1: Orthopedics, Dr. Rodriguez Procedures Abscess I/D Site: lower extremity Side (if applicable): left Local Anesthetic: lidocaine 2% Amount of anesthesia used (mL): 10 Technique: needle aspiration and incised with blade Sent for culture/gram staining?: Yes Irrigation: No Packing used?: iodoform Complications: pain and bleeding Medical Decision Making Lab Data Result diagrams: 07/22/21 16:15 07/22/21 16:15 Labs: Lab Results 07/22/21 07/22/21 07/22/21 Range/Units 14:18 15:58 16:15 WBC 8.5 (4.8-10.8) X10*3/uL RBC 4.59 L (4.60-5.80) X10*6/uL Hgb 13.4 L (14.0-18.0) g/dl Hct 40.8 L (42.0-52.0) % MCV 88.9 (80.0-98.0) fL MCH 29.2 (27.0-33.0) pg MCHC 32.8 (31.0-36.0) g/dl RDW 13.4 (11.0-16.0) % Plt Count 275 (160-400) X10*3/uL MPV 9.3 L (9.4-12.4) fL Immature Gran % (Auto) 0.5 H (0.0-0.4) % Neut % (Auto) 62.2 (45-73) % Lymph % (Auto) 23.9 (20-40) % [place] % (Auto) 9.2 (2-11) % Eos % (Auto) 3.4 (0-4) % Baso % (Auto) 0.8 (0-2) % Lymph # (Auto) 2.0 (1.2-4.9) X10*3/uL [place] # (Auto) 0.8 (0.1-1.2) X10*3/uL Eos # (Auto) 0.3 (0.0-0.4) X10*3/uL Baso # (Auto) 0.1 (0.0-0.2) X10*3/uL Abs Immat Gran (auto) 0.04 H (0.00-0.03) X10*3/uL Absolute Neuts (auto) 5.3 (2.0-8.3) x10*3/uL Absolute Nucleated RBC 0.000 (0.0-0.012) X10*3/uL Nucleated RBC % (auto) 0.0 (0.0-0.2) /100WBC PT 27.8 H (9.9-13.0) SEC INR 2.4 H D (0.9-1.1) APTT 44.5 H D (24.1-38.0) SEC Sodium (135-145) mmol/L Potassium (3.3-5.1) mmol/L Chloride (96-108) mmol/L Carbon Dioxide (22-29) mmol/L Anion Gap (12-20) BUN (9-16) mg/dL Creatinine (0.5-1.4) mg/dL Estim Creat Clear Calc Estimated GFR Random Glucose (60-115) mg/dL Calcium (8.4-10.2) mg/dL Magnesium (1.6-2.6) mg/dL Total Bilirubin (0.0-1.0) mg/dL Direct Bilirubin (0.0-0.5) mg/dL AST (5-37) U/L ALT (0-40) U/L Alkaline Phosphatase (39-117) U/L B-Natriuretic Peptide (<100) pg/mL Total Protein (6.5-8.0) g/dL Albumin (3.5-5.0) g/dL COVID-19 (ELDA) Negative (Negative) COVID-19 Clin Com See Note 07/22/21 07/22/21 Range/Units 16:15 16:15 WBC (4.8-10.8) X10*3/uL RBC (4.60-5.80) X10*6/uL Hgb (14.0-18.0) g/dl Hct (42.0-52.0) % MCV (80.0-98.0) fL MCH (27.0-33.0) pg MCHC (31.0-36.0) g/dl RDW (11.0-16.0) % Plt Count (160-400) X10*3/uL MPV (9.4-12.4) fL Immature Gran % (Auto) (0.0-0.4) % Neut % (Auto) (45-73) % Lymph % (Auto) (20-40) % [place] % (Auto) (2-11) % Eos % (Auto) (0-4) % Baso % (Auto) (0-2) % Lymph # (Auto) (1.2-4.9) X10*3/uL [place] # (Auto) (0.1-1.2) X10*3/uL Eos # (Auto) (0.0-0.4) X10*3/uL Baso # (Auto) (0.0-0.2) X10*3/uL Abs Immat Gran (auto) (0.00-0.03) X10*3/uL Absolute Neuts (auto) (2.0-8.3) x10*3/uL Absolute Nucleated RBC (0.0-0.012) X10*3/uL Nucleated RBC % (auto) (0.0-0.2) /100WBC PT (9.9-13.0) SEC INR (0.9-1.1) APTT (24.1-38.0) SEC Sodium 140 (135-145) mmol/L Potassium 4.3 (3.3-5.1) mmol/L Chloride 106 (96-108) mmol/L Carbon Dioxide 27 (22-29) mmol/L Anion Gap 11 L (12-20) BUN 16 (9-16) mg/dL Creatinine 0.95 (0.5-1.4) mg/dL Estim Creat Clear Calc 106.7 Estimated GFR > 60 Random Glucose 86 (60-115) mg/dL Calcium 8.7 (8.4-10.2) mg/dL Magnesium 2.0 (1.6-2.6) mg/dL Total Bilirubin 0.4 (0.0-1.0) mg/dL Direct Bilirubin 0.3 (0.0-0.5) mg/dL AST 16 (5-37) U/L ALT 12 (0-40) U/L Alkaline Phosphatase 98 D (39-117) U/L B-Natriuretic Peptide 195 H (<100) pg/mL Total Protein 6.9 (6.5-8.0) g/dL Albumin 3.3 L (3.5-5.0) g/dL COVID-19 (ELDA) (Negative) COVID-19 Clin Com Critical Care Time Critical Care Time Critical Care Time: Yes Total Critical Care Time: 36 Attestation: I have personally provided critical care time exclusive of time spent on separately billable procedures. Time includes review of lab data, radiology results, discussion with consultants/hospitalist, and monitoring for potential decompensation. Intervention performed as documented. Discharge Plan Discharge Clinical Impression: Abscess of knee, left, Cellulitis of left leg Patient Disposition: Admitted As Inpatient
[2021-07-22 14:51] LABS: COVID-19 Test Negative (Negative); IDNOW Serial# 08D9AD1C
--- NOTE | 2021-07-22 16:19 | PHA.MEDREC ---
Pharmacy Consult ? Medication Reconciliation Pharmacy has completed the medication reconciliation.
[2021-07-22 16:23] LABS: MANUAL DIFF FLAG NO
[2021-07-22 16:25] LABS: INTERNATIONAL NORM RATIO 2.4 (0.9-1.1); Prothrombin Time 27.8 SEC (9.9-13.0)
[2021-07-22 16:25] LABS: Basophils Absolute Auto 0.1 X10*3/uL (0.0-0.2); Basophils Percent Auto 0.8 % (0-2); Eosinophils Absolute Auto 0.3 X10*3/uL (0.0-0.4); Eosinophils Percent Auto 3.4 % (0-4); Hematocrit 40.8 % (42.0-52.0); Hemoglobin 13.4 g/dl (14.0-18.0); Imm Gran Abs Auto 0.04 X10*3/uL (0.00-0.03); Imm Gran Pct Auto 0.5 % (0.0-0.4); Lymphocytes Percent Auto 23.9 % (20-40); Mean Corpuscular HGB Conc 32.8 g/dl (31.0-36.0); Mean Corpuscular Hemoglobin 29.2 pg (27.0-33.0); Mean Corpuscular Volume 88.9 fL (80.0-98.0); Mean Platelet Volume 9.3 fL (9.4-12.4); Monocytes Absolute Auto 0.8 X10*3/uL (0.1-1.2); Monocytes Percent Auto 9.2 % (2-11); Neutrophils Absolute Auto 5.3 x10*3/uL (2.0-8.3); Neutrophils Percent Auto 62.2 % (45-73); Platelet Count 275 X10*3/uL (160-400); Red Blood Count 4.59 X10*6/uL (4.60-5.80); Red Cell Distribution Width 13.4 % (11.0-16.0); White Blood Count 8.5 X10*3/uL (4.8-10.8)
[2021-07-22 16:28] LABS: Partial Thromboplastin Time 44.5 SEC (24.1-38.0)
[2021-07-22 16:38] LABS: Alanine Aminotransferase 12 U/L (0-40); Albumin Level 3.3 g/dL (3.5-5.0); Alkaline Phosphatase 98 U/L (39-117); Anion Gap 11 (12-20); Aspartate Amino Transferase 16 U/L (5-37); Bilirubin Direct 0.3 mg/dL (0.0-0.5); Bilirubin Total 0.4 mg/dL (0.0-1.0); Blood Urea Nitrogen 16 mg/dL (9-16); Calcium 8.7 mg/dL (8.4-10.2); Carbon Dioxide 27 mmol/L (22-29); Chloride 106 mmol/L (96-108); Creatinine Clr Calc Pharmacy 106.7; Estimated Glomerular Filt Rate > 60; Glucose Random 86 mg/dL (60-115); Potassium 4.3 mmol/L (3.3-5.1); Sodium 140 mmol/L (135-145); Total Protein 6.9 g/dL (6.5-8.0)
[2021-07-22 16:43] LABS: B Type Natriuretic Peptide 195 pg/mL (<100)
[2021-07-22] MEDS: Piperacillin Sodium/Tazobactam 3.375 GM in 0.9 % Sodium Chloride 50 ML IV (16:54)
[2021-07-22] MEDS: Lidocaine HCl 2 % MPF 5 ML VIAL INFILTRATI ×2 (16:56)
--- NOTE | 2021-07-22 17:26 | PM.IMHP ---
History of Present Illness Date of Service: 07/22/21 Chief Complaint: left leg swelling, erythema 70M presented with left left swelling and erythema. patient has been having symptoms for about 1 week ptp, he had been prescribed keflex with no improvement. he also noted a lump on the front of the knee causing difficulty ambulating. denies trauma, fevers. he has bilateral knee replacements. in ED given vancomycin, seen by ortho who performed I and D. Review of Systems Review of Systems: Constitutional: Denies fever, denies Chills Eyes: denies blurry vision ENT: denies sore throat CVS: denies chest pain Respiratory: Denies dyspnea GI: no abdominal pain : denies dysuria MSK: denies neck pain Skin: denies rash Neuro: denies specific motor weakness Psych: denies suicidal ideation Endocrine: denies heat/cold intolerance Hematologic: denies easy bleeding Allergy: denies hives [facility] Medical History Anxiety Atherosclerosis of [place] coronary artery of [place] heart with angina pectoris Dyslipidemia HTN (hypertension) Moderate aortic stenosis Persistent atrial fibrillation Reactive depression Sleep apnea Family History Other Brain cancer Surgical History History of evacuation of hematoma (~05/2015) History of revision of total replacement of left knee joint (~04/2016) History of total left knee replacement (~11/2015) History of total right knee replacement (TKR) (~04/2015) Social History Housing: House Patient Tobacco Use Status: Former Tobacco user Quit Date: 5 years ago Advance Directives: No Advance Directives Information Provided: No service: No Current occupational status: previously employed and retired Current occupation: retired Current occupational exposures/hazards: No Meds Allergies Allergy/AdvReac Type Severity Reaction Status Date / Time No Known Allergies Allergy Verified 07/22/21 08:16 [No Known Allergies*] Active Medications: Current Medications Vancomycin HCl 1,000 mg/Vancomycin HCl 750 mg/ Sodium Chloride 535 mls @ 267.5 mls/hr IV ONCE ONE Stop: 07/22/21 17:32 Vancomycin HCl 1,000 mg/ (Sodium Chloride) 270 mls @ 270 mls/hr IV Q12H [facility] Metoprolol Tartrate (Metoprolol Tartrate 50 Mg Tablet) 50 mg PO BID MONA; Protocol Pharmacy Consult (Consult Rx Perform Med Rec) 1 each MISCELLANE ONCE PRN PRN Reason: Consult order Pharmacy Consult (Consult Rx Vancomycin Dosing) 1 each MISCELLANE DAILY PRN PRN Reason: Consult order Sodium Chloride (0.9 % Sodium Chloride Flush 3 Ml Syringe) 3 ml IVFLUSH QSHIFT [facility] Warfarin Sodium (Warfarin Sodium 1.25 Mg Halftab) 1.25 mg PO DAILY [facility] Home Medications Medication Instructions Recorded Confirmed Last Taken Type naproxen sodium 220 mg tablet 220 mg PO BID PRN 07/22/21 07/22/21 07/22/21 History warfarin 2.5 mg tablet 1.25 mg PO DAILY 07/22/21 07/22/21 07/22/21 History Physical Exam Vital Signs and Narrative: Vital Signs: Last Vital Signs Temp 98 F 07/22/21 08:46 Pulse 86 07/22/21 08:46 Resp 19 07/22/21 08:46 BP 141/85 H 07/22/21 08:46 Pulse Ox 95 07/22/21 08:46 BMI result Body Mass Index 42.0 General: no acute distress HEENT: atraumatic Neck: normal to visual inspection CVS: S1, S2, RRR, murmur Resp: CTA bilateral Chest: non tender GI: soft, non tender, non distended : no CVA tenderness Skin: LLE edema, erythema, >50% of limb Extremities: LLE edema Neuro: Oriented X3, grossly intact Psych: cooperative Results Labs CBC and Chem 7: 07/22/21 16:15 07/22/21 16:15 Labs: Laboratory Results - last 24 hr 07/22/21 07/22/21 07/22/21 14:18 15:58 16:15 MCV 88.9 MCH 29.2 MCHC 32.8 RDW 13.4 Plt Count 275 MPV 9.3 L Immature Gran % (Auto) 0.5 H Neut % (Auto) 62.2 Lymph % (Auto) 23.9 [place] % (Auto) 9.2 Eos % (Auto) 3.4 Baso % (Auto) 0.8 Lymph # (Auto) 2.0 [place] # (Auto) 0.8 Eos # (Auto) 0.3 Baso # (Auto) 0.1 Abs Immat Gran (auto) 0.04 H Absolute Neuts (auto) 5.3 Absolute Nucleated RBC 0.000 Nucleated RBC % (auto) 0.0 PT 27.8 H INR 2.4 H D APTT 44.5 H D Anion Gap Estim Creat Clear Calc Estimated GFR Random Glucose Calcium Magnesium Total Bilirubin Direct Bilirubin AST ALT Alkaline Phosphatase B-Natriuretic Peptide Total Protein Albumin COVID-19 (ELDA) Negative COVID-19 Clin Com See Note 07/22/21 07/22/21 16:15 16:15 MCV MCH MCHC RDW Plt Count MPV Immature Gran % (Auto) Neut % (Auto) Lymph % (Auto) [place] % (Auto) Eos % (Auto) Baso % (Auto) Lymph # (Auto) [place] # (Auto) Eos # (Auto) Baso # (Auto) Abs Immat Gran (auto) Absolute Neuts (auto) Absolute Nucleated RBC Nucleated RBC % (auto) PT INR APTT Anion Gap 11 L Estim Creat Clear Calc 106.7 Estimated GFR > 60 Random Glucose 86 Calcium 8.7 Magnesium 2.0 Total Bilirubin 0.4 Direct Bilirubin 0.3 AST 16 ALT 12 Alkaline Phosphatase 98 D B-Natriuretic Peptide 195 H Total Protein 6.9 Albumin 3.3 L COVID-19 (ELDA) COVID-19 Clin Com Imaging Radiologist's Impressions: Impressions Venous Duplex 07/22/21 11:40 IMPRESSION: 1. No evidence for deep venous thrombosis in the visualized veins of the left lower extremity. 2. Heterogeneous hypoechoic collection in the left anterior knee correlates with the palpable lump. This is nonspecific and could represent a hematoma. Correlate with trauma history. If this finding persists or enlarges, further evaluation with contrast-enhanced MRI is recommended for better characterization. 3. Mildly enlarged left inguinal lymph nodes are nonspecific. The overall appearance is benign and these may be reactive. Assessment and Plan (1) Abscess of knee, left: Status: Acute (2) Cellulitis of left leg: Status: Acute 70M presented with left leg pain and swelling left lower extremity cellulitis and abscess s/p I and D in ED, follow up cultures vancomycin monitor trough and bmp persistent atrial fibrillation metoprolol, coumadin, monitor inr, goal 2-3 morbid obesity weight loss recommended htn metoprolol dvt prophylaxis - on coumadin full code Quality Stroke Does the patient have a stroke diagnosis?: No VTE Prior VTE?: No VTE Risk Level:: Medical - moderate - high VTE Device Contraindication: Treatment Not Indicated VTE Drug Contraindication: N/A - Med Ordered
[2021-07-22] MEDS: vancomycin HCL 1,000 MG, vancomycin HCL 750 MG in 0.9 % Sodium Chloride 500 ML 267.5 MG IV (18:16)
--- NOTE | 2021-07-22 18:46 | PHA.PROG ---
Admission Date/Time: July 22, 2021 17:22 Indication: Skin and skin structure Weight in k.614 kg Adjusted body weight in K.8 [place] body weight in K.6 Obesity Dosing Indication % IBW: Serum Creatinine - Last 168 Hours 07/22/21 16:15 Creatinine 0.95 Estimated CrCl and GFR - Last 168 Hours 07/22/21 16:15 Estim Creat Clear Calc 106.7 Estimated GFR > 60 Vancomycin Loading Dose:1750mg Current Vancomycin Dosing Regimen: 1gram q12h Vancomycin Monitoring using AUC goal of 400 - 600 range with trough as surrogate marker: auc 504; trough 14.6 Date and Time for next Vancomycin Level to be drawn: draw 07/24 @0400 Pharmacist Comments on Vancomycin Plan: used obese model Vancomycin dosing will take advantage of [employer] as a clinical decision support tool that uses Bayesian modeling to calculate individual patient's pharmacokinetic parameters and forecast the patient's drug concentration time course with the target goal AUC 24 range of 400 - 600 mg/L/hr.
[2021-07-22 20:48] VITALS: BP 143/95; PULSE 82; RESP 20; TEMP 36.4; O2SAT 99
[2021-07-22] MEDS: Metoprolol Tartrate 50 MG TABLET PO (21:35)
--- NOTE | 2021-07-23 00:03 | PC.NURSE ---
PT ASLEEP NA FLUSH TO PRN ADAPTOR NOT DONE. WAS FLUSHED AFTER MEDICATION. SITE PATENT AT THAT TIME.
--- NOTE | 2021-07-23 00:57 | PC.NURSE ---
CARE OF PATIENT TRANSFERRED TO ZELDA RN, REPORT GIVEN.
--- NOTE | 2021-07-23 06:33 | PC.NURSE ---
Pt sleeping through the night with ease. Pt resting in bed at this time, denies pain/discomfort. Continue to monitor.
[2021-07-23 07:00] LABS: Hemoglobin 13.4 g/dl (14.0-18.0); Mean Corpuscular HGB Conc 32.7 g/dl (31.0-36.0); Mean Corpuscular Hemoglobin 28.8 pg (27.0-33.0); Mean Corpuscular Volume 88.2 fL (80.0-98.0); Mean Platelet Volume 9.1 fL (9.4-12.4); Platelet Count 253 X10*3/uL (160-400); Red Blood Count 4.65 X10*6/uL (4.60-5.80); Red Cell Distribution Width 13.5 % (11.0-16.0); White Blood Count 8.3 X10*3/uL (4.8-10.8)
[2021-07-23 07:03] LABS: INTERNATIONAL NORM RATIO 2.5 (0.9-1.1); Prothrombin Time 28.4 SEC (9.9-13.0)
[2021-07-23 07:29] LABS: Anion Gap 12 (12-20); Blood Urea Nitrogen 14 mg/dL (9-16); Calcium 8.8 mg/dL (8.4-10.2); Carbon Dioxide 26 mmol/L (22-29); Chloride 106 mmol/L (96-108); Estimated Glomerular Filt Rate > 60; Glucose Fasting 101 mg/dL (60-99); Potassium 5.3 mmol/L (3.3-5.1); Sodium 139 mmol/L (135-145)
[2021-07-23 07:38] VITALS: BP 167/104; PULSE 90; RESP 18; TEMP 36.6; O2SAT 97
[2021-07-23] MEDS: Metoprolol Tartrate 50 MG TABLET PO ×2 (07:46→19:41)
[2021-07-23] MEDS: vancomycin HCL 1,000 MG in 0.9 % Sodium Chloride 250 ML 270 MG IV ×2 (07:47→19:46)
[2021-07-23] MEDS: oxyCODONE HCl Immed Release 5 MG TABLET PO ×2 (08:38→19:41)
--- NOTE | 2021-07-23 10:27 | MHC.CM.PN ---
CM MET WITH PT IN [facility]. PT REPORTS HE LIVES WITH HIS MOTHER AND IS INDEPENDENT WITH CARE PT REPORTS HE USES TWO CANES TO AMBULATE PT DENIES HAVING IN HOME OR COMMUNITY SERVICES PT CONFIRMS HIS PCP IS PAUL MORTON AND HE HAS A HCP ON FILE PT HAS HAD THE PFIZER VACCINE (11/06/20 AND 12/04/20). IMM DELIVERED, ORIGINAL GIVEN TO PT, COPY TO MEDICAL RECORDS CURRENT DC PLAN IS HOME WITH NO SERVICES SISTER TO TRANSPORT
[2021-07-23 11:26] VITALS: BP 124/64; PULSE 99; RESP 18; TEMP 35.7; O2SAT 96
--- NOTE | 2021-07-23 11:48 | HO.PM.IMPN ---
Subjective Subjective Date of Service: 07/23/21 Interval History: cc: left leg pain and erythema and swelling interval history: still with pain and swelling Cardiovascular Cardiovascular: Reports no additional cardiovascular complaints Respiratory Respiratory: Reports no additional respiratory complaints Physical Exam Vital Signs: Vital Signs: Last Vital Signs Temp 96.2 F L 07/23/21 11:26 Pulse 99 07/23/21 11:26 Resp 18 07/23/21 11:26 BP 124/64 07/23/21 11:26 Pulse Ox 96 07/23/21 11:26 BMI result Body Mass Index 42.0 General: AO X 3, no acute distress Resp: CTA bilateral, no accessory muscles used CVS: S1,S2,RRR GI: soft, non tender, non distended Neuro: motor grossly intact, alert Psych: appropriate affect, appropriate insight LLE swelling, erythema Objective Data Active Medications Vancomycin HCl 1,000 mg/ (Sodium Chloride) 270 mls @ 270 mls/hr IV Q12H [facility] Last Infusion: 07/23/21 09:02 Dose: 270 mls/hr Documented by: RACHELLE Metoprolol Tartrate (Metoprolol Tartrate 50 Mg Tablet) 50 mg PO BID [facility]; Protocol Last Admin: 07/23/21 07:46 Dose: 50 mg Documented by: RACHELLE Oxycodone HCl (Oxycodone Hcl Immed Release 5 Mg Tablet) 5 mg PO Q6H PRN PRN Reason: moderate pain Last Admin: 07/23/21 08:38 Dose: 5 mg Documented by: PAYAL Pharmacy Consult (Consult Rx Perform Med Rec) 1 each MISCELLANE ONCE PRN PRN Reason: Consult order Pharmacy Consult (Consult Rx Vancomycin Dosing) 1 each MISCELLANE DAILY PRN PRN Reason: Consult order Sodium Chloride (0.9 % Sodium Chloride Flush 3 Ml Syringe) 3 ml IVFLUSH QSHIFT [facility] Last Admin: 07/23/21 08:28 Dose: Not Given Documented by: PAYAL Non-Admin Reason: IV Running Warfarin Sodium (Warfarin Sodium 1.25 Mg Halftab) 1.25 mg PO DAILY@1800 [facility] Labs CBC & Chem 7: 07/23/21 06:49 07/23/21 06:49 Labs: Laboratory Results - last 24 hr 07/22/21 07/22/21 07/22/21 14:18 15:58 16:15 MCV 88.9 MCH 29.2 MCHC 32.8 RDW 13.4 Plt Count 275 MPV 9.3 L Immature Gran % (Auto) 0.5 H Neut % (Auto) 62.2 Lymph % (Auto) 23.9 [place] % (Auto) 9.2 Eos % (Auto) 3.4 Baso % (Auto) 0.8 Lymph # (Auto) 2.0 [place] # (Auto) 0.8 Eos # (Auto) 0.3 Baso # (Auto) 0.1 Abs Immat Gran (auto) 0.04 H Absolute Neuts (auto) 5.3 Absolute Nucleated RBC 0.000 Nucleated RBC % (auto) 0.0 PT 27.8 H INR 2.4 H D APTT 44.5 H D Anion Gap Estim Creat Clear Calc Estimated GFR Random Glucose Fasting Glucose Calcium Magnesium Total Bilirubin Direct Bilirubin AST ALT Alkaline Phosphatase B-Natriuretic Peptide Total Protein Albumin COVID-19 (ELDA) Negative COVID-19 Clin Com See Note 07/22/21 07/22/21 07/23/21 16:15 16:15 06:49 MCV MCH MCHC RDW Plt Count MPV Immature Gran % (Auto) Neut % (Auto) Lymph % (Auto) [place] % (Auto) Eos % (Auto) Baso % (Auto) Lymph # (Auto) [place] # (Auto) Eos # (Auto) Baso # (Auto) Abs Immat Gran (auto) Absolute Neuts (auto) Absolute Nucleated RBC Nucleated RBC % (auto) PT 28.4 H INR 2.5 H APTT Anion Gap 11 L Estim Creat Clear Calc 106.7 Estimated GFR > 60 Random Glucose 86 Fasting Glucose Calcium 8.7 Magnesium 2.0 Total Bilirubin 0.4 Direct Bilirubin 0.3 AST 16 ALT 12 Alkaline Phosphatase 98 D B-Natriuretic Peptide 195 H Total Protein 6.9 Albumin 3.3 L COVID-19 ([facility]) COVID-19 Clin Com 07/23/21 07/23/21 06:49 06:49 MCV 88.2 MCH 28.8 MCHC 32.7 RDW 13.5 Plt Count 253 MPV 9.1 L Immature Gran % (Auto) Neut % (Auto) Lymph % (Auto) [place] % (Auto) Eos % (Auto) Baso % (Auto) Lymph # (Auto) [place] # (Auto) Eos # (Auto) Baso # (Auto) Abs Immat Gran (auto) Absolute Neuts (auto) Absolute Nucleated RBC 0.000 Nucleated RBC % (auto) 0.0 PT INR APTT Anion Gap 12 Estim Creat Clear Calc 109.0 Estimated GFR > 60 Random Glucose Fasting Glucose 101 H Calcium 8.8 Magnesium Total Bilirubin Direct Bilirubin AST ALT Alkaline Phosphatase B-Natriuretic Peptide Total Protein Albumin COVID-19 ([facility]) COVID-19 Clin Com Microbiology Microbiology Results: Microbiology 07/22/21 15:58 Gram Stain - Final Knee,Left Routine Culture - Preliminary No growth to date. Assessment and Plan (1) Cellulitis of left leg: Status: Acute Assessment and Plan: 70M presented with left leg pain and swelling left lower extremity cellulitis and abscess s/p I and D in ED, follow up cultures, abscess no growth to date vancomycin follow up ID monitor trough and bmp persistent atrial fibrillation metoprolol, coumadin, monitor inr, goal 2-3 morbid obesity weight loss recommended htn metoprolol dvt prophylaxis - on coumadin full code Quality Stroke Does the patient have a stroke diagnosis?: No VTE Prior VTE?: No VTE Risk Level:: Medical - moderate - high VTE Device Contraindication: Treatment Not Indicated VTE Drug Contraindication: N/A - Med Ordered
--- NOTE | 2021-07-23 13:23 | PM.EVENT ---
Event Note Date of Service: 07/23/21 Event Note: Patient seen at bedside today with Dr Rodriguez and myself. Packing removed. There was some scant purulant discharged which was expressed from the bursa incision site. The knee was redressed with gauze and an yumiko wrap. continue IV abx, ambulation, elevation of the lower extremities and ankle pumps. will continue to follow.
[2021-07-23 15:28] VITALS: BP 117/78; PULSE 108; RESP 14; TEMP 36.7; O2SAT 96
[2021-07-23] MEDS: 0.9 % Sodium Chloride Flush 3 ML SYRINGE IVFLUSH ×2 (16:40→19:46)
[2021-07-23] MEDS: Warfarin Sodium 1.25 MG HALFTAB PO (17:35)
[2021-07-23 19:39] VITALS: BP 127/78; PULSE 97; RESP 18; TEMP 36.5; O2SAT 97
[2021-07-23 23:46] VITALS: BP 123/80; PULSE 71; RESP 17; TEMP 36.2; O2SAT 97
[2021-07-24 04:00] VITALS: BP 151/89; PULSE 79; RESP 17; TEMP 36.2; O2SAT 97
[2021-07-24 06:48] LABS: Hematocrit 41.5 % (42.0-52.0); Hemoglobin 13.4 g/dl (14.0-18.0); Mean Corpuscular HGB Conc 32.3 g/dl (31.0-36.0); Mean Corpuscular Hemoglobin 28.8 pg (27.0-33.0); Mean Corpuscular Volume 89.1 fL (80.0-98.0); Mean Platelet Volume 9.5 fL (9.4-12.4); Platelet Count 276 X10*3/uL (160-400); Red Blood Count 4.66 X10*6/uL (4.60-5.80); Red Cell Distribution Width 13.5 % (11.0-16.0); White Blood Count 7.5 X10*3/uL (4.8-10.8)
[2021-07-24 06:51] LABS: INTERNATIONAL NORM RATIO 2.5 (0.9-1.1); Prothrombin Time 28.8 SEC (9.9-13.0)
[2021-07-24] MEDS: Metoprolol Tartrate 50 MG TABLET PO ×2 (07:01→21:41)
[2021-07-24] MEDS: 0.9 % Sodium Chloride Flush 3 ML SYRINGE IVFLUSH ×2 (07:01→18:27)
[2021-07-24] MEDS: oxyCODONE HCl Immed Release 5 MG TABLET PO ×2 (07:01→18:30)
[2021-07-24 07:06] LABS: Anion Gap 11 (12-20); Blood Urea Nitrogen 15 mg/dL (9-16); Calcium 8.8 mg/dL (8.4-10.2); Carbon Dioxide 28 mmol/L (22-29); Chloride 105 mmol/L (96-108); Creatinine Clr Calc Pharmacy 105.6; Estimated Glomerular Filt Rate > 60; Glucose Fasting 108 mg/dL (60-99); Potassium 4.7 mmol/L (3.3-5.1); Sodium 139 mmol/L (135-145)
[2021-07-24 07:13] LABS: Vancomycin Trough 11.5 mcg/mL (10.0-20.0)
[2021-07-24 07:35] VITALS: BP 143/89; PULSE 84; RESP 18; TEMP 36; O2SAT 98
[2021-07-24] MEDS: vancomycin HCL 1,000 MG in 0.9 % Sodium Chloride 250 ML 270 MG IV ×2 (08:31→21:41)
--- NOTE | 2021-07-24 10:34 | P.PNIM_ITS ---
Subjective Subjective Date of Service: 07/24/21 Interval History: Seen and evaluated this morning Mildly improved left leg pain and erythema and swelling No overnight events Review of Systems Constitutional: Denies fever, denies Chills Eyes: denies blurry vision ENT: denies sore throat CVS: denies chest pain Respiratory: Denies dyspnea GI: no abdominal pain : denies dysuria MSK: denies neck pain Skin: Rash around the same, edema little improving but pain is better Neuro: denies specific motor weakness Physical Exam Vital Signs: Vital Signs: Last Vital Signs Temp 96.8 F 07/24/21 07:35 Pulse 84 07/24/21 07:35 Resp 18 07/24/21 07:35 BP 143/89 H 07/24/21 07:35 Pulse Ox 98 07/24/21 07:35 BMI result Body Mass Index 42.0 Const: Other: Constitutional : Alert, oriented, not in distress Neck : Normal inspection, Supple Cardiovascular : RRR, S1 S2, no lower extremity edema Respiratory : Good bilateral air entry, no crackles, wheezes or rhonchi Gastrointestinal: soft, lax, Normal bowel sounds, Non tender Skin : Warm, Dry. Extremities: Left lower extremity covered with dressing up to the knee and the ankle level with significant erythema and edema, no drainage noted Neurological : Alert & oriented x3, No focal deficit Objective Data Active Medications Vancomycin HCl 1,000 mg/ (Sodium Chloride) 270 mls @ 270 mls/hr IV Q12H [facility] Last Admin: 07/24/21 08:31 Dose: 270 mls/hr Documented by: JASON Metoprolol Tartrate (Metoprolol Tartrate 50 Mg Tablet) 50 mg PO BID [facility]; Protocol Last Admin: 07/24/21 07:01 Dose: 50 mg Documented by: VIPIN Oxycodone HCl (Oxycodone Hcl Immed Release 5 Mg Tablet) 5 mg PO Q6H PRN PRN Reason: moderate pain Last Admin: 07/24/21 07:01 Dose: 5 mg Documented by: VIPIN Pharmacy Consult (Consult Rx Perform Med Rec) 1 each MISCELLANE ONCE PRN PRN Reason: Consult order Pharmacy Consult (Consult Rx Vancomycin Dosing) 1 each MISCELLANE DAILY PRN PRN Reason: Consult order Sodium Chloride (0.9 % Sodium Chloride Flush 3 Ml Syringe) 3 ml IVFLUSH QSHIFT [facility] Last Admin: 07/24/21 07:01 Dose: 3 ml Documented by: VIPIN Warfarin Sodium (Warfarin Sodium 1.25 Mg Halftab) 1.25 mg PO DAILY@1800 [facility] Last Admin: 07/23/21 17:35 Dose: 1.25 mg Documented by: KATARINA Labs CBC & Chem 7: 07/24/21 05:56 07/24/21 05:56 Labs: Laboratory Results - last 24 hr 07/24/21 07/24/21 07/24/21 05:56 05:56 05:56 MCV 89.1 MCH 28.8 MCHC 32.3 RDW 13.5 Plt Count 276 MPV 9.5 Absolute Nucleated RBC 0.000 Nucleated RBC % (auto) 0.0 PT 28.8 H INR 2.5 H Anion Gap Estim Creat Clear Calc Estimated GFR Fasting Glucose Calcium Vancomycin Trough 11.5 07/24/21 05:56 MCV MCH MCHC RDW Plt Count MPV Absolute Nucleated RBC Nucleated RBC % (auto) PT INR Anion Gap 11 L Estim Creat Clear Calc 105.6 Estimated GFR > 60 Fasting Glucose 108 H Calcium 8.8 Vancomycin Trough Microbiology Microbiology Results: Microbiology 07/22/21 16:15 Blood Culture - Preliminary Blood - Venous No growth after 24 hours. 07/22/21 16:15 Blood Culture - Preliminary Blood - Venous No growth after 24 hours. 07/22/21 15:58 Gram Stain - Final Knee,Left Routine Culture - Preliminary No growth to date. Assessment and Plan (1) Abscess of knee, left: Status: Acute (2) Cellulitis of left leg: Status: Acute Assessment and Plan: 70M presented with left leg pain and swelling left lower extremity cellulitis and abscess s/p I and D in ED, follow up cultures, abscess no growth to date Continue vancomycin Appreciated orthopedic evaluation Pending id input monitor trough and bmp persistent atrial fibrillation metoprolol, coumadin, monitor inr, goal 2-3 morbid obesity weight loss recommended htn metoprolol dvt prophylaxis - on coumadin full code Quality Stroke Does the patient have a stroke diagnosis?: No VTE Prior VTE?: No VTE Risk Level:: Medical - moderate - high VTE Device Contraindication: Treatment Not Indicated VTE Drug Contraindication: N/A - Med Ordered
[2021-07-24 11:19] VITALS: BP 135/98; PULSE 87; RESP 18; TEMP 36; O2SAT 100
--- NOTE | 2021-07-24 11:28 | P.CONOP_ITS ---
History of Present Illness HPI Consult date: 07/23/21 Chief complaint: Cellulitis, Abscess Narrative: Andre is a 70-year-old gentleman who is approximately 6 years status post revision left knee arthroplasty for infection. He presents to the emergency room with swelling and pain mostly in his leg and a noticeable mass over the front of his left knee. He is anticoagulant therapy for AFib . He has had pain in his knee for several years and his motion is poor but there have been no signs of infection. Now he describes anterior knee pain and lower leg pain. He states over the past 2 weeks he has noticed swelling and redness in his leg. [facility] Past Medical History Medical History Anxiety Atherosclerosis of [place] coronary artery of [place] heart with angina pectoris Dyslipidemia HTN (hypertension) Moderate aortic stenosis Persistent atrial fibrillation Reactive depression Sleep apnea Family History Family History Other Brain cancer Surgical History Surgical History History of evacuation of hematoma (~05/2015) History of revision of total replacement of left knee joint (~04/2016) History of total left knee replacement (~11/2015) History of total right knee replacement (TKR) (~04/2015) Social History Social History Household Members: Family Housing: House Do you presently have visiting nurse or other home services: No Patient Tobacco Use Status: Former Tobacco user Quit Date: 5 years ago Smoked in Last 30 Days: No e-Cigarette/Vaping Use: Former Use Patient Interested in Nicotine Replacement: No Second Hand Smoke Exposure: No Use of substances other than those prescribed or required for medical reasons: No Substance Use Type: Marijuana Substance Use Frequency: Occasionally Currently Displaying Signs/Symptoms of Drug Intoxication Withdrawal: No Any prior treatment program specific to substance use: No Have you been hit, kicked, punched, or otherwise hurt by someone within the past year? If so, by whom?: No Do you feel safe in your current relationship?: No Current Relationship Is there a partner from a previous relationship who is making you feel unsafe now?: No Are you made to feel afraid or neglected: No Buddhist Healthcare Practices: none Advance Directives: No Advance Directives Information Provided: No Do you have thoughts of harming others: None Do you have a plan to hurt others: No Plan Recently lost weight without trying: No Nutrition Risks: No Nutritional Risk Poor oral hygiene: No service: No Current occupational status: previously employed and retired Current occupation: retired Current occupational exposures/hazards: No Meds Allergies Allergy/AdvReac Type Severity Reaction Status Date / Time No Known Allergies Allergy Verified 07/22/21 08:16 [No Known Allergies*] Active Medications: Current Medications Vancomycin HCl 1,000 mg/ (Sodium Chloride) 270 mls @ 270 mls/hr IV Q12H [facility] Last Infusion: 07/24/21 10:42 Dose: Infused Documented by: Metoprolol Tartrate (Metoprolol Tartrate 50 Mg Tablet) 50 mg PO BID [facility]; Protoc ol Last Admin: 07/24/21 07:01 Dose: 50 mg Documented by: Oxycodone HCl (Oxycodone Hcl Immed Release 5 Mg Tablet) 5 mg PO Q6H PRN PRN Reason: moderate pain Last Admin: 07/24/21 07:01 Dose: 5 mg Documented by: Pharmacy Consult (Consult Rx Perform Med Rec) 1 each MISCELLANE ONCE PRN PRN Reason: Consult order Pharmacy Consult (Consult Rx Vancomycin Dosing) 1 each MISCELLANE DAILY PRN PRN Reason: Consult order Sodium Chloride (0.9 % Sodium Chloride Flush 3 Ml Syringe) 3 ml IVFLUSH QSHIFT [facility] Last Admin: 07/24/21 07:01 Dose: 3 ml Documented by: Warfarin Sodium (Warfarin Sodium 1.25 Mg Halftab) 1.25 mg PO DAILY@1800 [facility] Last Admin: 07/23/21 17:35 Dose: 1.25 mg Documented by: Home Medications Medication Instructions Recorded Confirmed Last Taken Type naproxen sodium 220 mg tablet 220 mg PO BID PRN 07/22/21 07/22/21 07/22/21 History warfarin 2.5 mg tablet 1.25 mg PO DAILY 07/22/21 07/22/21 07/22/21 History Physical Exam Vital Signs: Vital Signs: Last Vital Signs Temp 96.8 F 07/24/21 11:19 Pulse 87 07/24/21 11:19 Resp 18 07/24/21 11:19 BP 135/98 H 07/24/21 11:19 Pulse Ox 100 07/24/21 11:19 BMI result Body Mass Index 42.0 Extrem: Other: On exam he has a fluctuant mass over the anteromedial knee had just adjacent to the and for patellar bursa. There is 2+ pitting edema with cellulitis in the lower leg. The posterior lateral and aspect of the knee is appears normal. There is no knee effusion. Results Labs Result Diagrams: 07/24/21 05:56 07/24/21 05:56 Labs: Abnormal lab results 07/24/21 07/24/21 07/24/21 Range/Units 05:56 05:56 05:56 Hgb 13.4 L (14.0-18.0) g/dl Hct 41.5 L (42.0-52.0) % PT 28.8 H (9.9-13.0) SEC INR 2.5 H (0.9-1.1) Anion Gap 11 L (12-20) Fasting Glucose 108 H (60-99) mg/dL H & H 07/22/21 07/23/21 07/24/21 Range/Units 16:15 06:49 05:56 Hgb 13.4 L 13.4 L 13.4 L (14.0-18.0) g/dl Hct 40.8 L 41.0 L 41.5 L (42.0-52.0) % Coagulation 07/22/21 07/23/21 07/24/21 Range/Units 15:58 06:49 05:56 INR 2.4 H D 2.5 H 2.5 H (0.9-1.1) All other labs normal. Assessment and Plan (1) Abscess of knee, left: Status: Acute This is a 70-year-old gentleman status post revision left knee arthroplasty. He has had baseline left knee pain for years but 2 weeks ago started developing cellulitis and and abscess over the anterior aspect of his knee. In the emergency room I attempted to aspirate his knee joint via lateral portal through normal-appearing skin and was unable to get any fluid. There is no evidence of intra-articular involvement. I did make a stab incision over the abscess and drained purulence amount of purulence fluid. This was packed any was admitted to the hospital for IV antibiotics. Now on IV antibiotics he has improvements in pain and the abscess is improving but he continues to have redness and pain in the lower leg. He is being followed by Medicine and Infectious Disease and I recommend he continue IV antibiotics. Cultures were taken from the abscess but they have yet to grow out anything as he was on p.o. antibiotics at the time of aspiration and had been for approximately 1 week. (2) Cellulitis of left leg: Status: Acute Procedures Date of Service Date of Service: 07/23/21
--- NOTE | 2021-07-24 13:16 | P.CNID_ITS ---
History of Present Illness Data of Consult Service Date: 07/24/21 Requesting physician: Francisco Champion Primary Care Provider: ERMA Alonzo- HPI Reason for consult: left knee infection concerns He presents with left knee discomfort and nodular swollen area increasing in size over last week. He has had pain for last three years in the knee He has seen Orthopedics and had area aspirated and culture negative so far but area grossly purulent He has no history of Lyme disease He had TKR for knee pain six years ago. Review of Systems Verdana 4l Review of Systems: Yes all other systems are reviewed and Verdana 4d are negative PMFSH Past Medical History Medical History Abscess of knee, left Anxiety Atherosclerosis of [place] coronary artery of [place] heart with angina pectoris Dyslipidemia HTN (hypertension) Moderate aortic stenosis Persistent atrial fibrillation Reactive depression Sleep apnea Family History Family History Other Brain cancer Family history: reviewed and not pertinent Surgical History Surgical History History of evacuation of hematoma (~05/2015) History of revision of total replacement of left knee joint (~04/2016) History of total left knee replacement (~11/2015) History of total right knee replacement (TKR) (~04/2015) Social History Social History (Updated 08/01/21 @ 11:19 by Soy Torrse) Household Members: Family Housing: House Do you presently have visiting nurse or other home services: No Patient Tobacco Use Status: Former Tobacco user Quit Date: 5 years ago e-Cigarette/Vaping Use: Former Use Second Hand Smoke Exposure: No Substance Use Type: Marijuana service: No Current occupational status: previously employed and retired 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 Current occupational exposures/hazards: No Meds Allergies Allergy/AdvReac Type Severity Reaction Status Date / Time No Known Allergies Allergy Verified 08/07/21 08:02 [No Known Allergies*] Active Medications: Current Medications Vancomycin HCl 1,000 mg/ (Sodium Chloride) 270 mls @ 270 mls/hr IV Q12H [facility] Last Infusion: 07/24/21 10:42 Dose: Infused Documented by: Metoprolol Tartrate (Metoprolol Tartrate 50 Mg Tablet) 50 mg PO BID [facility]; Protocol Last Admin: 07/24/21 07:01 Dose: 50 mg Documented by: Oxycodone HCl (Oxycodone Hcl Immed Release 5 Mg Tablet) 5 mg PO Q6H PRN PRN Reason: moderate pain Last Admin: 07/24/21 07:01 Dose: 5 mg Documented by: Pharmacy Consult (Consult Rx Perform Med Rec) 1 each MISCELLANE ONCE PRN PRN Reason: Consult order Pharmacy Consult (Consult Rx Vancomycin Dosing) 1 each MISCELLANE DAILY PRN PRN Reason: Consult order Sodium Chloride (0.9 % Sodium Chloride Flush 3 Ml Syringe) 3 ml IVFLUSH QSHIFT [facility] Last Admin: 07/24/21 07:01 Dose: 3 ml Documented by: Warfarin Sodium (Warfarin Sodium 1.25 Mg Halftab) 1.25 mg PO DAILY@1800 [facility] Last Admin: 07/23/21 17:35 Dose: 1.25 mg Documented by: Home Medications Medication Instructions Recorded Confirmed Last Taken Type warfarin 2.5 mg 1.25 mg PO DAILY 07/22/21 08/07/21 07/22/21 History tablet Physical Exam Verdana 4l Vital Signs: Verdana 4d Verdana 4d Vital Signs: Verdana 4d Verdana 4Bd Last Vital Signs Verdana 4d Offal Baler New 4d Offal Baler New 4d Temp 96.8 F 07/24/21 11:19 Offal Baler New 4d Pulse 87 07/24/21 11:19 Offal Baler New 4d Resp 18 07/24/21 11:19 BP 135/98 H 07/24/21 11:19 Pulse Ox 100 07/24/21 11:19 BMI result Body Mass Index 42.0 Const: General: cooperative Orientation/consciousness: patient oriented x3 Eyes: General: appearance normal, both eyes and all related structures Resp: Effort & Inspection: normal respiratory effort Cardio: Rate: regular rate Rhythm: regular rhythm GI: Palpation (GI): Soft to palpation and nontender Skin: General skin exam: no rashes or lesions noted Neuro: General: patient oriented x3 Extrem: Other: left knee swollen,pressure dressing Results Labs CBC & Chem 7: 07/25/21 05:56 07/26/21 06:20 Labs: Short CBC 07/24/21 Range/Units 05:56 WBC 7.5 (4.8-10.8) X10*3/uL Hgb 13.4 L (14.0-18.0) g/dl Hct 41.5 L (42.0-52.0) % Plt Count 276 (160-400) X10*3/uL BMP 07/24/21 05:56 Sodium 139 Potassium 4.7 Chloride 105 Carbon Dioxide 28 BUN 15 Creatinine 0.96 Calcium 8.8 Microbiology Microbiology Results: Microbiology 07/22/21 15:58 Knee,Left Gram Stain - Final 07/22/21 15:58 Knee,Left Routine Culture - Preliminary Culture in progress. 07/22/21 16:15 Blood - Venous Blood Culture - Preliminary No growth after 24 hours. 07/22/21 16:15 Blood - Venous Blood Culture - Preliminary No growth after 24 hours. Assessment and Plan (1) Abscess of knee, left: Status: Resolved There is abscess in knee Staph and strep is possible There is less likely Lyme disease involved (2) Cellulitis of left leg: Status: Resolved Plan Would continue Vancomycin and as if joint itself not suspected to be involved would probably transition to po Doxycycline for 14 days If joint infection suspected ,six weeks IV Vancomycin and Rifampin Follow Orthopedics Check Lyme disease
[2021-07-24 16:00] VITALS: BP 160/94; PULSE 97; RESP 16; TEMP 36.1; O2SAT 97
--- NOTE | 2021-07-24 16:32 | MHC.CM.PN ---
EMR REVIEWED, PER MULTIDISCIPLINARY ROUNDS PT IS SLOWLY IMPROVING AND ANTIC PT WILL D/C IN 102 DAYS, CM WILL CONT TO FOLLOW D/C NEEDS.
[2021-07-24] MEDS: Warfarin Sodium 1.25 MG HALFTAB PO (18:27)
[2021-07-24 19:47] VITALS: BP 131/88; PULSE 84; RESP 18; TEMP 36.6; O2SAT 97
[2021-07-24 23:42] VITALS: BP 139/94; PULSE 85; RESP 20; TEMP 36.3; O2SAT 91
[2021-07-25] MEDS: 0.9 % Sodium Chloride Flush 3 ML SYRINGE IVFLUSH ×4 (02:07→21:03)
[2021-07-25 06:22] LABS: Hematocrit 45.7 % (42.0-52.0); Hemoglobin 14.6 g/dl (14.0-18.0); Mean Corpuscular HGB Conc 31.9 g/dl (31.0-36.0); Mean Corpuscular Hemoglobin 28.9 pg (27.0-33.0); Mean Corpuscular Volume 90.5 fL (80.0-98.0); Mean Platelet Volume 10.4 fL (9.4-12.4); Platelet Count 224 X10*3/uL (160-400); Red Blood Count 5.05 X10*6/uL (4.60-5.80); Red Cell Distribution Width 13.2 % (11.0-16.0); White Blood Count 6.7 X10*3/uL (4.8-10.8)
[2021-07-25 06:29] LABS: INTERNATIONAL NORM RATIO 2.5 (0.9-1.1); Prothrombin Time 29.1 SEC (9.9-13.0)
[2021-07-25 06:43] LABS: Anion Gap 17 (12-20); Blood Urea Nitrogen 17 mg/dL (9-16); Calcium 9.2 mg/dL (8.4-10.2); Carbon Dioxide 21 mmol/L (22-29); Chloride 106 mmol/L (96-108); Creatinine Clr Calc Pharmacy 105.6; Estimated Glomerular Filt Rate > 60; Glucose Random 88 mg/dL (60-115); Sodium 139 mmol/L (135-145)
[2021-07-25 07:48] VITALS: BP 127/82; PULSE 80; RESP 19; TEMP 36.1; O2SAT 99
[2021-07-25] MEDS: Metoprolol Tartrate 50 MG TABLET PO ×2 (09:42→21:02)
[2021-07-25] MEDS: vancomycin HCL 1,000 MG in 0.9 % Sodium Chloride 250 ML 270 MG IV ×2 (09:48→21:02)
--- NOTE | 2021-07-25 09:52 | P.PNIM_ITS ---
Subjective Subjective Date of Service: 07/25/21 Interval History: Seen and evaluated this morning improved left leg pain and erythema and swelling Blood cultures remain negative No overnight events Review of Systems Constitutional: Denies fever, denies Chills Eyes: denies blurry vision ENT: denies sore throat CVS: denies chest pain Respiratory: Denies dyspnea GI: no abdominal pain : denies dysuria MSK: denies neck pain Skin: Rash improving, edema improved as well but pain is better Neuro: denies specific motor weakness Physical Exam Vital Signs: Vital Signs: Last Vital Signs Temp 97.0 F 07/25/21 07:48 Pulse 80 07/25/21 07:48 Resp 19 07/25/21 07:48 BP 127/82 07/25/21 07:48 Pulse Ox 99 07/25/21 07:48 BMI result Body Mass Index 42.0 Const: Other: Constitutional : Alert, oriented, not in distress Neck : Normal inspection, Supple Cardiovascular : RRR, S1 S2, no lower extremity edema Respiratory : Good bilateral air entry, no crackles, wheezes or rhonchi Gastrointestinal: soft, lax, Normal bowel sounds, Non tender Skin : Warm, Dry. Extremities: Left lower extremity covered with dressing up to the knee with decreased erythema and edema, no significant tenderness, no drainage noted Neurological : Alert & oriented x3, No focal deficit Objective Data Active Medications Vancomycin HCl 1,000 mg/ (Sodium Chloride) 270 mls @ 270 mls/hr IV Q12H [facility] Last Infusion: 07/25/21 00:35 Dose: 0 mls/hr Documented by: DAMON Metoprolol Tartrate (Metoprolol Tartrate 50 Mg Tablet) 50 mg PO BID [facility]; Protocol Last Admin: 07/24/21 21:41 Dose: 50 mg Documented by: DAMON Oxycodone HCl (Oxycodone Hcl Immed Release 5 Mg Tablet) 5 mg PO Q6H PRN PRN Reason: moderate pain Last Admin: 07/24/21 18:30 Dose: 5 mg Documented by: JASON Pharmacy Consult (Consult Rx Perform Med Rec) 1 each MISCELLANE ONCE PRN PRN Reason: Consult order Pharmacy Consult (Consult Rx Vancomycin Dosing) 1 each MISCELLANE DAILY PRN PRN Reason: Consult order Sodium Chloride (0.9 % Sodium Chloride Flush 3 Ml Syringe) 3 ml IVFLUSH QSHIFT [facility] Last Admin: 07/25/21 02:07 Dose: 3 ml Documented by: DAMON Warfarin Sodium (Warfarin Sodium 1.25 Mg Halftab) 1.25 mg PO DAILY@1800 [facility] Last Admin: 07/24/21 18:27 Dose: 1.25 mg Documented by: JASON Labs CBC & Chem 7: 07/25/21 05:56 07/25/21 05:56 Labs: Laboratory Results - last 24 hr 07/25/21 07/25/21 07/25/21 05:56 05:56 05:56 MCV 90.5 MCH 28.9 MCHC 31.9 RDW 13.2 Plt Count 224 MPV 10.4 Absolute Nucleated RBC 0.000 Nucleated RBC % (auto) 0.0 PT 29.1 H INR 2.5 H Anion Gap 17 Estim Creat Clear Calc 105.6 Estimated GFR > 60 Random Glucose 88 Calcium 9.2 Microbiology Microbiology Results: Microbiology 07/22/21 15:58 Gram Stain - Final Knee,Left Routine Culture - Final 07/22/21 16:15 Blood Culture - Preliminary Blood - Venous No growth after 48 hours. 07/22/21 16:15 Blood Culture - Preliminary Blood - Venous No growth after 48 hours. Assessment and Plan (1) Abscess of knee, left: Status: Acute (2) Cellulitis of left leg: Status: Acute Assessment and Plan: 70M presented with left leg pain and swelling left lower extremity cellulitis and abscess s/p I and D in ED, follow up cultures, abscess no growth to date Continue vancomycin Appreciated orthopedic evaluation, no knee joint infection just cellulitis and abscess Id input appreciated, continue IV antibiotics and discharged on doxycycline if no joint infection monitor trough and bmp persistent atrial fibrillation metoprolol, coumadin, monitor inr, goal 2-3 morbid obesity weight loss recommended htn metoprolol dvt prophylaxis - on coumadin full code Quality Stroke Does the patient have a stroke diagnosis?: No VTE Prior VTE?: No VTE Risk Level:: Medical - moderate - high VTE Device Contraindication: Treatment Not Indicated VTE Drug Contraindication: N/A - Med Ordered
[2021-07-25 11:11] LABS: Lyme Abs Screen <0.90 index
[2021-07-25 11:38] VITALS: BP 135/91; PULSE 95; RESP 20; TEMP 36.3; O2SAT 97
[2021-07-25 16:00] VITALS: BP 130/99; PULSE 83; RESP 16; TEMP 36; O2SAT 97
[2021-07-25] MEDS: Warfarin Sodium 1.25 MG HALFTAB PO (17:49)
[2021-07-25 18:52] LABS: Vancomycin Trough 15.5 mcg/mL (10.0-20.0)
--- NOTE | 2021-07-25 19:00 | HE.PHANOTE ---
VANCOMYCIN DOSING ADDENDUM TROUGH CAME BACK AT 15.5 SO DOSE OF [id number] CONTINUED. NEXT TROUGH AT 07/27 @ 600
[2021-07-25 20:00] VITALS: BP 173/77; PULSE 84; RESP 16; TEMP 36.1; O2SAT 96
[2021-07-26] VITALS: BP 139/79; PULSE 84; RESP 17; TEMP 36.3; O2SAT 97
[2021-07-26 04:00] VITALS: BP 152/68; PULSE 76; RESP 17; TEMP 36.9; O2SAT 97
[2021-07-26 06:43] LABS: INTERNATIONAL NORM RATIO 2.1 (0.9-1.1); Prothrombin Time 24.1 SEC (9.9-13.0)
[2021-07-26 06:58] LABS: Anion Gap 14 (12-20); Blood Urea Nitrogen 17 mg/dL (9-16); Calcium 9.4 mg/dL (8.4-10.2); Carbon Dioxide 27 mmol/L (22-29); Chloride 103 mmol/L (96-108); Creatinine Clr Calc Pharmacy 96.5; Estimated Glomerular Filt Rate > 60; Glucose Random 111 mg/dL (60-115); Potassium 4.6 mmol/L (3.3-5.1); Sodium 139 mmol/L (135-145)
[2021-07-26 08:00] VITALS: BP 140/100; PULSE 91; RESP 18; TEMP 36.1; O2SAT 97
[2021-07-26] MEDS: Metoprolol Tartrate 50 MG TABLET PO (08:12)
[2021-07-26] MEDS: vancomycin HCL 1,000 MG in 0.9 % Sodium Chloride 250 ML 270 MG IV (08:13)
[2021-07-26] MEDS: 0.9 % Sodium Chloride Flush 3 ML SYRINGE IVFLUSH (08:22)
--- NOTE | 2021-07-26 10:43 | PM.PNORT ---
Subjective Subjective Date of Service: 07/26/21 Principal diagnosis: Left leg cellulitis with bursal abscess Interval history: No overnight events. Minimal pain. Still complains of swelling of the foot and lower leg Physical Exam Vital Signs: Vital Signs: Last Vital Signs Temp 97.0 F 07/26/21 08:00 Pulse 91 07/26/21 08:00 Resp 18 07/26/21 08:00 BP 140/100 H 07/26/21 08:00 Pulse Ox 97 07/26/21 08:00 BMI result Body Mass Index 42.0 Extrem: Other: Persistent cellulitis and left foot edema. Prepatellar bursal infection appears much improved. There is scant drainage from small open wound. Procedures Date of Service Date of Service: 07/26/21 Progress Note: A&P Assessment and plan (1) Abscess of knee, left: Status: Acute Assessment and Plan: Continue daily dry dressing change and warm soaks to knee. Will follow up with orthopedics clinic on Thursday. (2) Cellulitis of left leg: Status: Acute Assessment and Plan: Continue antibiotics. As per Infectious Disease p.o. antibiotics status factory as there is no evidence of intra-articular knee infection. Fall Risk Details Current Medications: Current Medications Vancomycin HCl 1,000 mg/ (Sodium Chloride) 270 mls @ 270 mls/hr IV Q12H [facility] Last Admin: 07/26/21 08:13 Dose: 270 mls/hr Documented by: Metoprolol Tartrate (Metoprolol Tartrate 50 Mg Tablet) 50 mg PO BID [facility]; Protocol Last Admin: 07/26/21 08:12 Dose: 50 mg Documented by: Oxycodone HCl (Oxycodone Hcl Immed Release 5 Mg Tablet) 5 mg PO Q6H PRN PRN Reason: moderate pain Last Admin: 07/24/21 18:30 Dose: 5 mg Documented by: Pharmacy Consult (Consult Rx Perform Med Rec) 1 each MISCELLANE ONCE PRN PRN Reason: Consult order Pharmacy Consult (Consult Rx Vancomycin Dosing) 1 each MISCELLANE DAILY PRN PRN Reason: Consult order Sodium Chloride (0.9 % Sodium Chloride Flush 3 Ml Syringe) 3 ml IVFLUSH QSHIFT [facility] Last Admin: 07/26/21 08:22 Dose: 3 ml Documented by: Warfarin Sodium (Warfarin Sodium 1.25 Mg Halftab) 1.25 mg PO DAILY@1800 [facility] Last Admin: 07/25/21 17:49 Dose: 1.25 mg Documented by: Time Spent With Patient Time: Total time spent is greater than 50% in coordination of care (as documented) at patient's floor/unit and/or counseling patient: Time with patient: 15 - 24 minutes Quality Stroke Does the patient have a stroke diagnosis?: No VTE Prior VTE?: No VTE Risk Level:: Medical - moderate - high VTE Device Contraindication: Treatment Not Indicated VTE Drug Contraindication: N/A - Med Ordered
--- NOTE | 2021-07-26 11:35 | P.DS_ITS ---
DS: Providers Provider Date of Service: 07/26/21 Date of admission: 07/22/21 17:22 Primary care physician: RIKKI Alonzo Consults: 07/22/21 15:46 Consult to Orthopedics Stat Consulting Provider: Ata Rodriguez Reason for consultation: superficial knee infection, cellulitis 07/23/21 11:07 Consult to Infectious Diseases Routine Consulting Provider: Ana Bishop Reason for consultation: abscess, cellulitis, lle, negative abscess culture DS: Diagnosis Discharge Diagnosis (1) Abscess of knee, left: Status: Acute (2) Cellulitis of left leg: Status: Acute DS: Summary Hospital Course Hospital Course: Admission note HPI 70M presented with left left swelling and erythema. patient has been having symptoms for about 1 week ptp, he had been prescribed keflex with no improvement. he also noted a lump on the front of the knee causing difficulty ambulating. denies trauma, fevers. he has bilateral knee replacements. in ED given vancomycin, seen by ortho who performed I and D. Hospital Course Admitted with left lower extremity cellulitis and abscess s/p I and D in ED, cultures remain negative from the wound and from the blood. Treated with IV vancomycin with good response over the course of hospital stay. Evaluated by Orthopedic team who reported no evidence of knee joint infection just cellulitis and abscess and recommended dressing and antibiotic at time of discharge. Id evaluated the patient and recommended to continue IV antibiotics and discharged on doxycycline for 14 days. The patient has edema in his left lower extremity. Compression stocking were added and he was started on small dose of Lasix for the next 3 days at time of discharge. Continue daily dry dressing change and warm soaks to knee Will follow up with orthopedics clinic on Thursday. To finish 14 days of oral doxycycline Advised to use emollients for moisturization and antifungal cream between his toes Time Spent with Patient Time attestation: Total time spent providing and/or coordinating discharge services: Discharge coordination time: Greater than 30 minutes Quality: Stroke Does the patient have a stroke diagnosis?: No Physical Exam Vital Signs: Vital Signs: Last Vital Signs Temp 97.0 F 07/26/21 08:00 Pulse 91 07/26/21 08:00 Resp 18 07/26/21 08:00 BP 140/100 H 07/26/21 08:00 Pulse Ox 97 07/26/21 08:00 BMI result Body Mass Index 42.0 Const: Other: Constitutional : Alert, oriented, not in distress Neck : Normal inspection, Supple Cardiovascular : RRR, S1 S2, +1 left lower extremity edema, pitting Respiratory : Good bilateral air entry, no crackles, wheezes or rhonchi Gastrointestinal: soft, lax, Normal bowel sounds, Non tender Skin : Warm, Dry. Extremities: Left lower extremity covered with dressing up to the knee with decreased erythema and edema, no significant tenderness, no drainage noted Neurological : Alert & oriented x3, No focal deficit DS: Data Data Completed and Pending Labs on day of discharge: Laboratory Results - last 24 hr 07/24/21 07/25/21 07/26/21 14:05 18:12 06:20 PT 24.1 H INR 2.1 H Sodium Potassium Chloride Carbon Dioxide Anion Gap BUN Creatinine Estim Creat Clear Calc Estimated GFR Random Glucose Calcium Vancomycin Trough 15.5 Lyme Progressive Test TNP 07/26/21 06:20 PT INR Sodium 139 Potassium 4.6 Chloride 103 Carbon Dioxide 27 Anion Gap 14 BUN 17 H Creatinine 1.05 Estim Creat Clear Calc 96.5 Estimated GFR > 60 Random Glucose 111 Calcium 9.4 Vancomycin Trough Lyme Progressive Test Preliminary micro results at discharge 07/22/21 16:15 Blood Culture - Preliminary Blood - Venous No growth after 48 hours. 07/22/21 16:15 Blood Culture - Preliminary Blood - Venous No growth after 48 hours. Discharge Plan Discharge Patient Disposition: Home, Self-Care Discharge Diagnosis: Abscess, cellulitis of the left knee Referrals: Reji Delgado FNP-CACHORRO [Primary Care Provider] - 1 Week Maday Jones PA-C [Physician Skidder Driver] - 08/01/21 11:30 am Discharge Medications: New furosemide 20 mg tablet 20 mg PO DAILY Qty: 3 RF: 0 doxycycline monohydrate 100 mg capsule 100 mg PO BID Qty: 28 RF: 0 clotrimazole 1 % cream 1 appl topical BID 14 Days RF: 0 Continued metoprolol tartrate 50 mg tablet 50 mg PO BID 90 Days Qty: 180 RF: 3 warfarin 2.5 mg tablet 2.5 mg PO DAILY Qty: 60 RF: 1 warfarin 2.5 mg tablet 1.25 mg PO DAILY RF: 0 naproxen sodium 220 mg Tablet 220 mg PO BID PRN (Reason: Pain) RF: 0 Discontinued cephalexin 500 mg capsule 500 mg PO TID Qty: 30 RF: 0 Discharge Orders: Discharge Order (Routine); Ordered 07/26/21 Ordered By: Francisco Champion Diet: advance to usual diet Activity on Discharge: As tolerated Stand Alone Forms: Patient Portal Discharge page Care Plan Goals: Read below Health Concerns: Read below Plan of Treatment: Read below Assessment: you were admitted to the hospital for evaluation of left knee pain and swelling. Abscess was found and drained and you were monitor bite floral department specialist Dr. Rodriguez. You were treated with IV antibiotics with good response over the course of hospital stay and evaluated by infectious disease specialist who recommended being discharged home on 14 days of doxycycline.. Continue daily dry dressing change and warm soaks to knee Finish 14 days of doxycycline Keep your leg elevated as long as possible To follow-up with Dr. Rodriguez in the office next Thursday Used Lasix for the next 3 days to decrease the swelling along with wearing the compression stocking Discharge Date/Time: 07/26/21 12:00
--- NOTE | 2021-07-26 11:38 | MHC.CM.PN ---
HOME - SELF CARE. IMM 07/25 IN CHART
[2021-07-26] MEDS: oxyCODONE HCl Immed Release 5 MG TABLET PO (11:49)
== END 2021-07-26 12:00 | disposition home or self-care (01) | DRG 603 ==
LOC: HO.ED 15:50 → HO.EDOVER 17:31 → HO.S3 07-23 08:52
PROVIDERS: Internal Medicine; Physician Assistant; Admitting Provider Internal Medicine; Emergency Provider Emergency Medicine; PCP Nurse Practitioner Family; Visit Provider Student in an Organized Health Care Education/Training Program
DX: L02.416 Cutaneous abscess of left lower limb (principal); I48.19 Other persistent atrial fibrillation; Z68.41 Body mass index [BMI] 40.0-44.9, adult; E66.01 Morbid (severe) obesity due to excess calories; I10 Essential (primary) hypertension; L03.116 Cellulitis of left lower limb; Z96.653 Presence of artificial knee joint, bilateral; Z20.822 Contact with and (suspected) exposure to COVID-19; Z87.891 Personal history of nicotine dependence; Z79.1 Long term (current) use of non-steroidal anti-inflammatories (NSAID); Z79.01 Long term (current) use of anticoagulants; Z79.899 Other long term (current) drug therapy
CPT/HCPCS: 36415; 80048; 80076; 80202; 83735; 83880; 85025; 85027; 85610; 85730; 86617; 86618; 87040; 87071; 87147; 87205; 87635; 93971; 99285; J2543; J3370

== ENCOUNTER → 2021-07-30 08:04 | Outpatient (BNVA) | payer MEDICARE, OTHER, SELFPAY | PROVIDERS: PCP Nurse Practitioner Family; Visit Provider Internal Medicine | DX: I48.91 Unspecified atrial fibrillation (principal); Z51.81 Encounter for therapeutic drug level monitoring; Z79.01 Long term (current) use of anticoagulants | CPT/HCPCS: 85610; 99211 ==

== ENCOUNTER 2021-08-01 09:10 | Outpatient (REF) | payer MEDICARE, OTHER, SELFPAY ==
--- NOTE | ~2021-08-01 | XR_ITS ---
EXAMINATION: XR KNEE, LEFT XR KNEE STANDING, BILATERAL CLINICAL INFORMATION: Bilateral knee pain. COMPARISON: None TECHNIQUE: AP bilateral knee. Left knee 2 views. FINDINGS: There is a total right knee prosthesis with the prosthetic components in satisfactory alignment. There is a total left knee prosthesis with prosthetic components in satisfactory alignment. There is increased lucency between the distal tibial prosthesis cement and the adjacent bone measuring approximately 0.17 cm along the tip. Left Knee: There is a total left knee prosthesis in alignment. There is increased lucency between the cement and the bone interspace throughout the left tibial prosthesis questioning loosening. The femoral prosthesis is intact. XR/XR knee standing BI IMPRESSION: Suspect loosening involving the left prosthesis between the cement interface and the bone marrow. The femoral prosthesis is in alignment on the left. Total right knee prosthesis on the right is unremarkable. No periprosthetic fractures seen.
--- NOTE | ~2021-08-01 | XR_ITS ---
EXAMINATION: XR KNEE, LEFT XR KNEE STANDING, BILATERAL CLINICAL INFORMATION: Bilateral knee pain. COMPARISON: None TECHNIQUE: AP bilateral knee. Left knee 2 views. FINDINGS: There is a total right knee prosthesis with the prosthetic components in satisfactory alignment. There is a total left knee prosthesis with prosthetic components in satisfactory alignment. There is increased lucency between the distal tibial prosthesis cement and the adjacent bone measuring approximately 0.17 cm along the tip. Left Knee: There is a total left knee prosthesis in alignment. There is increased lucency between the cement and the bone interspace throughout the left tibial prosthesis questioning loosening. The femoral prosthesis is intact. XR/XR knee LT 2V IMPRESSION: Suspect loosening involving the left prosthesis between the cement interface and the bone marrow. The femoral prosthesis is in alignment on the left. Total right knee prosthesis on the right is unremarkable. No periprosthetic fractures seen.
== END 2021-08-01 09:11 | disposition home or self-care (01) ==
LOC: HO.HOSX 09:10
PROVIDERS: Visit Provider Physician Assistant
DX: M25.562 Pain in left knee (principal); M25.561 Pain in right knee; L03.90 Cellulitis, unspecified
CPT/HCPCS: 73560; 73565; 99212

== ENCOUNTER → 2021-08-07 07:58 | Outpatient (BNVA) | payer MEDICARE, OTHER, SELFPAY | PROVIDERS: PCP Nurse Practitioner Family; Visit Provider Internal Medicine | DX: I48.91 Unspecified atrial fibrillation (principal); Z51.81 Encounter for therapeutic drug level monitoring; Z79.01 Long term (current) use of anticoagulants | CPT/HCPCS: 85610; 99211 ==

== ENCOUNTER 2021-08-19 08:04 | Outpatient (REF) | payer MEDICARE, OTHER, SELFPAY ==
[2021-08-19 11:45] LABS: Alanine Aminotransferase 8 U/L (0-40); Albumin Level 3.9 g/dL (3.5-5.0); Alkaline Phosphatase 90 U/L (39-117); Anion Gap 12 (12-20); Aspartate Amino Transferase 15 U/L (5-37); Bilirubin Total 0.7 mg/dL (0.0-1.0); Blood Urea Nitrogen 19 mg/dL (9-16); Calcium 8.8 mg/dL (8.4-10.2); Carbon Dioxide 28 mmol/L (22-29); Chloride 106 mmol/L (96-108); Cholesterol 223 mg/dL; Estimated Glomerular Filt Rate > 60; Glucose Random 103 mg/dL (60-115); HDL Cholesterol 58 mg/dL; LDL Cholesterol Calculated 141 mg/dl; Potassium 4.7 mmol/L (3.3-5.1); Sodium 141 mmol/L (135-145); Total Protein 7.4 g/dL (6.5-8.0); Triglycerides 123 mg/dL
[2021-08-19 11:46] LABS: Appearance Urine CLEAR; Color Urine STRAW; Glucose Urine UA NEG (NEG); Leukocyte Esterase Urine NEG (NEG); Nitrite Urine NEG (NEG); PH 5.5 (5.0-8.0); Urine Blood NEG (NEG); Urine Ketones NEG (NEG); Urine Protein NEG (NEG-TRACE)
[2021-08-19 11:52] LABS: TSH reflex Free T4 0.67 uIU/mL (0.32-4.0)
== END 2021-08-19 08:05 | disposition home or self-care (01) ==
LOC: HO.HMGCLDS 08:04
PROVIDERS: Visit Provider Nurse Practitioner Family
DX: L03.90 Cellulitis, unspecified (principal); L02.416 Cutaneous abscess of left lower limb
CPT/HCPCS: 36415; 80053; 80061; 81003; 84443

== ENCOUNTER → 2021-08-22 08:11 | Outpatient (BNVA) | payer MEDICARE, OTHER, SELFPAY | PROVIDERS: PCP Nurse Practitioner Family; Visit Provider Orthopaedic Surgery | DX: I83.12 Varicose veins of left lower extremity with inflammation (principal) | CPT/HCPCS: 99202; 99212 ==

== ENCOUNTER → 2021-08-23 08:04 | Outpatient (BNVA) | payer MEDICARE, OTHER, SELFPAY | PROVIDERS: PCP Nurse Practitioner Family; Visit Provider Internal Medicine | DX: I48.91 Unspecified atrial fibrillation (principal); Z51.81 Encounter for therapeutic drug level monitoring; Z79.01 Long term (current) use of anticoagulants | CPT/HCPCS: 85610; 99211 ==

== ENCOUNTER 2021-08-28 10:01 | Outpatient (REF) | payer MEDICARE, OTHER, SELFPAY ==
--- NOTE | ~2021-08-28 | US_ITS ---
EXAMINATION: US LOWER EXTREMITY VENOUS (REFLUX EXAM), BILATERAL CLINICAL INDICATION: This is a 71-year-old male with venous insufficiency. COMPARISON: None. TECHNIQUE: Color flow triplex imaging and compression Doppler was performed to evaluate both the deep and the superficial systems bilaterally. To evaluate the superficial system, the examination was performed in the upright position. Color-flow Doppler ultrasound and compression ultrasound were utilized. In addition, maneuvers were utilized to demonstrate reflux. FINDINGS: 1. DEEP VENOUS ULTRASOUND OF THE RIGHT LOWER EXTREMITY: Common Femoral Vein: Compressible but with reflux of 2080 ms. Femoral vein: Compressible, normal color flow and augmentation. Popliteal Vein: Compressible, but with reflux of 1252 ms. Deep Reflux: There is evidence of reflux in the deep system in the common femoral vein or the popliteal vein. There is no evidence of a Calle's cyst. 2. SUPERFICIAL ULTRASOUND WITH DOPPLER OF RIGHT LOWER EXTREMITY: GREAT SAPHENOUS VEIN: Saphenofemoral Junction: 0.9 cm. There is no reflux at this level. Mid Thigh: 0.6 cm. The reflux time is 3264 ms. Above Knee: 0.3 cm. There is no reflux. Below Knee: 0.3 cm. There is no reflux. Mid Calf: 0.1 cm. The reflux time is 7 are 40 ms. Ankle: 0.1 cm GSV REFLUX: No evidence of reflux. DUPLICATED GREAT SAPHENOUS VEIN: None SMALL SAPHENOUS VEIN: Proximal: 0.2 cm. There is no reflux. The mid calf measures 0.2 cm with a reflux time of 3252 ms. Distal: 0.2 cm. There is no reflux. SSV REFLUX: There is isolated reflux in the mid calf. VEIN OF GIACOMINI: None Imaged. PERFORATORS: There are 0.2 cm mid calf perforators without reflux. VARICOSITIES: There are 0.3 cm distal small saphenous vein varicose veins with greater than 2 seconds of reflux. There is mid calf 0.6 cm varicose veins with greater than 3 seconds of reflux. There are varicose veins in the proximal thigh measures 0.6 cm with greater than 2 seconds of reflux. There are 0.4 cm proximal thigh varicose veins with greater than 3 seconds of reflux. 3. DEEP VENOUS ULTRASOUND OF THE LEFT LOWER EXTREMITY: Common Femoral Vein: Compressible, normal respiratory variation and augmented flow. Femoral Vein: Compressible, but reflux greater than 2 seconds. Popliteal Vein: Compressible, but reflux of greater than 2 seconds. Deep Reflux: There is evidence of reflux in the deep system in either the femoral vein or the popliteal vein. There is no evidence of a Calle's cyst. 4. SUPERFICIAL ULTRASOUND WITH DOPPLER OF LEFT LOWER EXTREMITY: GREAT SAPHENOUS VEIN: Saphenofemoral Junction: 1.0 cm. The reflux time is 3152 ms. Mid Thigh: 0.4 cm. There is no reflux. Above Knee: 0.4 cm. There is no reflux. Below Knee: 0.4 cm. The reflux time is 1368 ms. Mid Calf: 0.2 cm. There is no reflux. Ankle: 0.2 cm. The reflux time is 2920 ms. GSV REFLUX: There is evidence of reflux. DUPLICATED GREAT SAPHENOUS VEIN: There is a 0.4 cm duplicated lateral great saphenous vein without reflux SMALL SAPHENOUS VEIN: Proximal: 0.2 cm. The reflux time is 1756 ms. Distal: 0.3 cm. There is no reflux. SSV REFLUX: There is reflux in the proximal small saphenous vein. VEIN OF GIACOMINI: None Imaged. PERFORATORS: There are 0.1 cm perforators in the distal thigh and distal calf. There is reflux to distal calf VARICOSITIES: There are 0.4 cm proximal thigh and proximal calf varicose veins with greater than one second of reflux. US/US venous duplex LE BI IMPRESSION: 1 there is a patent right great saphenous vein without reflux at the saphenofemoral junction. There is reflux in the proximal thigh. 2. There is a patent right small saphenous vein with reflux in the mid calf but not at the junction. 3. There are varicose veins with greater than 3 seconds of reflux in the right calf and thigh. 4. There is a patent left great saphenous vein with reflux at the saphenofemoral junction. 5. There are varicose veins in the proximal thigh and proximal calf with greater than one second of reflux on the left. 6. Incidental note is made of right anterior calf calcification measuring 0.4 x 0.1 x 0.3 cm of uncertain etiology. This appears abnormal and should undergo further investigation. An MRI of the right calf is recommended. 7. There is a patent left small saphenous vein with reflux at the sapheno popliteal junction.
== END 2021-08-28 10:02 | disposition home or self-care (01) ==
LOC: HO.US 10:01
PROVIDERS: PCP Nurse Practitioner Family; Visit Provider Surgery Vascular Surgery
DX: I83.12 Varicose veins of left lower extremity with inflammation (principal)
CPT/HCPCS: 93970

== ENCOUNTER → 2021-09-11 08:18 | Outpatient (BNVA) | payer MEDICARE, OTHER, SELFPAY | PROVIDERS: PCP Nurse Practitioner Family; Visit Provider Internal Medicine | DX: I48.91 Unspecified atrial fibrillation (principal); Z51.81 Encounter for therapeutic drug level monitoring; Z79.01 Long term (current) use of anticoagulants | CPT/HCPCS: 85610; 99211 ==

== ENCOUNTER → 2021-09-17 10:31 | Outpatient (BNVA) | payer MEDICARE, OTHER, SELFPAY | PROVIDERS: PCP Nurse Practitioner Family; Visit Provider Surgery Vascular Surgery | DX: I83.12 Varicose veins of left lower extremity with inflammation (principal) | CPT/HCPCS: 99212 ==

== ENCOUNTER → 2021-09-27 08:00 | Outpatient (BNVA) | payer MEDICARE, OTHER, SELFPAY | PROVIDERS: PCP Nurse Practitioner Family; Visit Provider Internal Medicine | DX: I48.91 Unspecified atrial fibrillation (principal); Z79.01 Long term (current) use of anticoagulants; Z51.81 Encounter for therapeutic drug level monitoring | CPT/HCPCS: 85610; 99211 ==

== ENCOUNTER → 2021-10-10 11:44 | Outpatient (BNVA) | payer MEDICARE, OTHER, SELFPAY | PROVIDERS: PCP Nurse Practitioner Family; Visit Provider Orthopaedic Surgery | DX: L02.416 Cutaneous abscess of left lower limb (principal); L03.116 Cellulitis of left lower limb; I10 Essential (primary) hypertension | CPT/HCPCS: 10060; 99212 ==

== ENCOUNTER → 2021-10-11 12:44 | Outpatient (BNVA) | payer MEDICARE, OTHER, SELFPAY | PROVIDERS: Visit Provider Physician Assistant | DX: L03.90 Cellulitis, unspecified (principal); L02.416 Cutaneous abscess of left lower limb | CPT/HCPCS: 99212 ==

== ENCOUNTER → 2021-10-14 08:15 | Outpatient (BNVA) | payer MEDICARE, OTHER, SELFPAY | PROVIDERS: Visit Provider Physician Assistant | DX: M70.42 Prepatellar bursitis, left knee (principal); L02.416 Cutaneous abscess of left lower limb; I83.12 Varicose veins of left lower extremity with inflammation | CPT/HCPCS: 36415; 99212 ==

== ENCOUNTER 2021-10-15 08:58 | Outpatient (REF) | payer MEDICARE, OTHER, SELFPAY ==
[2021-10-15 10:15] LABS: INTERNATIONAL NORM RATIO 2.2 (0.9-1.1); Prothrombin Time 25.6 SEC (9.9-13.0)
== END 2021-10-15 08:59 | disposition home or self-care (01) ==
LOC: HO.LAB 08:58
PROVIDERS: PCP Nurse Practitioner Family; Visit Provider Orthopaedic Surgery
DX: Z13.9 Encounter for screening, unspecified (principal)
CPT/HCPCS: 36415; 85610

== ENCOUNTER 2021-10-16 06:37 | Outpatient (REF) | payer MEDICARE, OTHER, SELFPAY ==
[2021-10-16 08:00] LABS: Cholesterol 159 mg/dL; HDL Cholesterol 54 mg/dL; LDL Cholesterol Calculated 87 mg/dl; Triglycerides 92 mg/dL
[2021-10-16 08:15] LABS: Prostate Specific Antigen Scr 0.48 ng/mL (<0.05-4.0)
[2021-10-16 09:27] LABS: Prothrombin Time 22.7 SEC (9.9-13.0)
== END 2021-10-16 06:38 | disposition home or self-care (01) ==
LOC: HO.LAB 06:37
PROVIDERS: PCP Nurse Practitioner Family; Visit Provider Orthopaedic Surgery
DX: Z12.5 Encounter for screening for malignant neoplasm of prostate (principal); M70.42 Prepatellar bursitis, left knee; E78.5 Hyperlipidemia, unspecified
CPT/HCPCS: 36415; 80061; 84153; 85610

== ENCOUNTER 2021-10-17 07:43 | Outpatient (REF) | payer MEDICARE, OTHER, SELFPAY ==
[2021-10-17 08:15] LABS: INTERNATIONAL NORM RATIO 1.7 (0.9-1.1); Prothrombin Time 19.3 SEC (9.9-13.0)
== END 2021-10-17 07:44 | disposition home or self-care (01) ==
LOC: HO.LAB 07:43
PROVIDERS: PCP Nurse Practitioner Family; Visit Provider Orthopaedic Surgery
DX: I48.91 Unspecified atrial fibrillation (principal); M70.42 Prepatellar bursitis, left knee; Z51.81 Encounter for therapeutic drug level monitoring; Z79.01 Long term (current) use of anticoagulants
CPT/HCPCS: 36415; 85610; Q3014

== ENCOUNTER 2021-10-18 11:41 | Day surgery (SDC) | payer MEDICARE, OTHER, SELFPAY ==
[2021-10-14 10:55] LABS: INTERNATIONAL NORM RATIO 2.2 (0.9-1.1); Prothrombin Time 25.4 SEC (9.9-13.0)
--- NOTE | 2021-10-15 08:23 | HO.ANESPROP2 ---
Documented by User: Catherine Cordon NP 10/15/21 08:29 HPI - Anesthesia Eval Consult details Narrative: 71yo M for?Left I&D, prepatellar bursitis Warfarin for afib PMFSH Active Problems Active Problems: All Active Problems (Updated 10/14/21 @ 12:16 by Maday Jones PA-C) Prepatellar bursitis of left knee (Acute) Varicose veins of left lower extremity with inflammation (Acute) Stiffness of left knee (Acute) Screening PSA (prostate specific antigen) (Acute) Dyslipidemia (Acute) Cellulitis (Acute) Abscess of knee, left (Acute) Moderate aortic stenosis (Acute) Persistent atrial fibrillation (Acute) Current use of anticoagulant therapy (Acute) HTN (hypertension) (Acute) Past Medical History Medical History Abscess of knee, left Anxiety Atherosclerosis of [place] coronary artery of [place] heart with angina pectoris Dyslipidemia HTN (hypertension) Moderate aortic stenosis Persistent atrial fibrillation Reactive depression Sleep apnea Family History Family History Other Brain cancer Surgical History Surgical History History of evacuation of hematoma (~05/2015) History of revision of total replacement of left knee joint (~04/2016) History of total left knee replacement (~11/2015) History of total right knee replacement (TKR) (~04/2015) Social History Social History Household Members: Family Housing: House Do you presently have visiting nurse or other home services: No Patient Tobacco Use Status: Former Tobacco user Quit Date: 5 years ago Smoked in Last 30 Days: No e-Cigarette/Vaping Use: Former Use Second Hand Smoke Exposure: No Use of substances other than those prescribed or required for medical reasons: No Substance Use Type: Marijuana Have you been hit, kicked, punched, or otherwise hurt by someone within the past year? If so, by whom?: No Are you DNR?: No Advance Directives: No Advance Directives Information Provided: Yes service: No Current occupational status: previously employed and retired 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 Current occupational exposures/hazards: No Meds Allergies Allergy/AdvReac Type Severity Reaction Status Date / Time No Known Allergies Allergy Verified 09/27/21 08:01 [No Known Allergies*] Home Medications Medication Instructions Recorded Confirmed Last Taken Type warfarin 2.5 mg tablet 1.25 mg PO DAILY 07/22/21 10/17/21 10/11/21 History Exam Exam Date and Time: October 15, 2021 0823 Pertinent Lab Results Pertinent Lab Results: Laboratory Tests 10/14/21 10/14/21 08:55 15:27 PT 25.4 H TNP INR 2.2 H TNP Laboratory Tests 07/25/21 08/19/21 05:56 08:14 WBC 6.7 Hgb 14.6 Hct 45.7 Plt Count 224 Sodium 141 Potassium 4.7 Chloride 106 Carbon Dioxide 28 BUN 19 H Creatinine 1.11 Narrative Narrative: NM lazaro perf SPECT rest & str 04/2021 Impression: ? 1.? Myocardial perfusion imaging study shows normal myocardial perfusion 2.? Gated LVEF is 53% 3. Transient ischemic dilatation not present ? EKG is nondiagnostic for ischemia ECHO 04/2021 Conclusions: - The left ventricular systolic function is normal.? The ? calculated ejection fraction is 67% by biplane method. ? - There is moderate aortic valve stenosis. ? ? 3 Day Holter 04/2021 Conclusion: 1. Patient was monitored for total period of 2 days and 19 hours ?2. Baseline rhythm is atrial fibrillation with average heart rate of 83 beats per minute.? Fastest heart rate is 181 beats per minute.? Patient does not have significant increase rapid ventricular response to atrial fibrillation.? Overall adequate rate control 3. One pause up to 3.3 seconds noted 4. Rare PVCs noted 5. No patient reported events Assessment and Plan Assessment Anesthesia Assessment: Chart Reviewed Documented by User: Eliza Mills MD 10/18/21 14:34 [facility] Past Medical History Medical History Abscess of knee, left Anxiety Atherosclerosis of [place] coronary artery of [place] heart with angina pectoris Dyslipidemia HTN (hypertension) Moderate aortic stenosis Persistent atrial fibrillation Reactive depression Sleep apnea Family History Family History Other Brain cancer Surgical History Surgical History History of evacuation of hematoma (~05/2015) History of revision of total replacement of left knee joint (~04/2016) History of total left knee replacement (~11/2015) History of total right knee replacement (TKR) (~04/2015) History of Problems with Anesthesia: No Social History Social History Household Members: Family Housing: House Do you presently have visiting nurse or other home services: No Patient Tobacco Use Status: Former Tobacco user Quit Date: 5 years ago Smoked in Last 30 Days: No e-Cigarette/Vaping Use: Former Use Second Hand Smoke Exposure: No Use of substances other than those prescribed or required for medical reasons: No Substance Use Type: Marijuana Have you been hit, kicked, punched, or otherwise hurt by someone within the past year? If so, by whom?: No Are you DNR?: No Advance Directives: No Advance Directives Information Provided: Yes service: No Current occupational status: previously employed and retired 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 Current occupational exposures/hazards: No Meds Allergies Allergy/AdvReac Type Severity Reaction Status Date / Time No Known Allergies Allergy Verified 09/27/21 08:01 [No Known Allergies*] Home Medications Medication Instructions Recorded Confirmed Last Taken Type warfarin 2.5 mg tablet 1.25 mg PO DAILY 07/22/21 10/17/21 10/11/21 History Exam Airway Mallampati Class: III TM Dist: >3cm Neck ROM: Full Loose/Missing/Broken Teeth: No Heart: RRR Lungs: CTA Assessment and Plan Final Anesthetic Review History of Problems with Anesthesia: No NPO: Yes ASA Class: III Final Preanesthetic Review: Meds/Allgs Chart Reviewed, Consent Obtained/Reviewed and Anes Risks/Benef Reviewed Patient Risk: Intermediate Procedure Risk: Low Anesthetic Plan Anesthetic Plan: GA Disposition: Standard PACU
[2021-10-18] VITALS (7 sets, daily range): BP systolic 136–177; BP diastolic 90–116; PULSE 84–99; RESP 18; TEMP 36.1–36.7; O2SAT 94–100; BMI 42.0
[2021-10-18 12:25] LABS: INTERNATIONAL NORM RATIO 1.5 (0.9-1.1); Prothrombin Time 17.6 SEC (9.9-13.0)
[2021-10-18] MEDS: Lactated Ringers 1,000 ML 100 ML IVCONT (12:46)
--- NOTE | 2021-10-18 15:02 | MHC.SHP ---
Pre-Procedural Eval Section A Date of Service: 10/18/21 The patient is an INPATIENT: No Changes since office visit: Yes Patient answered all questions; No Cold of Flu in the past 2 weeks, No New Medical Problems and No Changes in Medication The History & Physical has been completed within 30 days and I have reviewed it.: Yes Section B Chief Complaint: bursitis Allergies: Allergies Allergy/AdvReac Type Severity Reaction Status Date / Time No Known Allergies Allergy Verified 09/27/21 08:01 [No Known Allergies*] Plan I have reviewed the history and physical and performed a pertinent physical examination on my patient. No changes have occurred unless specified.
--- NOTE | 2021-10-18 16:49 | PC.NURSE ---
patient oob assisted to dress at bedside. patient left knee dressing noted to be bleeding through size of softball upon getting oob. patient left knee dressing reinforced with abd dressing. jacques morales, and dr. graves made aware of bleeding dressing and reinforcement. vandana indicted that large amounts of irrigation completed and may have drainage bleeding. dressing can be changed.
--- NOTE | 2021-10-18 17:12 | PC.NURSE ---
per jacques pryor, dressing changed. kerlix and fluff noted to be saturated. new bulky dressing placed to left knee kerlix, fluff and new yumiko wrap placed. 1713 dr. graves at bedside to reevaluate patient. dressings that were saturated were evaluated. patient educated plan of care. ok to discharge to home.
--- NOTE | 2021-10-18 17:37 | PC.NURSE ---
Pt OOB to dress by Aurelia Guajardo RN at 1620. Renny wrap became saturated with red staining. Dressing reinforced with Abd pads and rewrapped. Pt back to bed and left leg elevated. Dr Rodriguez contacted and RN told okay to take down dressing and redress. Reinforcement and renny wrap taken down. Kerlix beneath renny wrap has central dark red staining with pink staining surrounding, no active oozing observed. Kerlix and 4x4 immediately beneath removed. 4x4 closest to wound packing left intact. No oozing visualized at this time. New fluffs and abd pads applied and knee rewrapped in clean renny wrap. Removed dressings were seen by Dr Rodriguez who spoke with the patient and cleared him for discharge home. Extra dressing supplies provided. Pt tolerated dressing change well.
--- NOTE | 2021-10-23 10:56 | P.BOP_ITS ---
Brief Operative Note Date of Service: 10/18/21 Pre-op diagnosis: left knee septic bursitis with chronic cellulitis Post-op diagnosis: same Procedure: Irrigation and debridement left prepatellar bursa. Surgeon: Ata Rodriguez MD Anesthesia: GETA Was an Building Insulation Supervisor used for this Procedure?: Yes Building Insulation Supervisor: Maday Jones Estimated blood loss (mL): 50 Pathology: other Condition: stable Disposition: PACU
--- NOTE | 2021-10-23 11:03 | W.PM.OPN ---
Operative Note Operative Note Date of Service: 10/18/21 Narrative: Date of Service: 10/18/21 Pre-op diagnosis: left knee septic bursitis with chronic cellulitis Post-op diagnosis: same Procedure: Irrigation and debridement left prepatellar bursa. Surgeon: Ata Rodriguez MD Anesthesia: GETA Was an Wooden Frame Builder used for this Procedure?: Yes Wooden Frame Builder: Maday Jones Estimated blood loss (mL): 50 Pathology: other Condition: stable Disposition: PACU Procedure in detail: Patient was brought to the operating room and placed supine on the surgical table. She was prepped and draped in standard sterile fashion and a time out was called to identify proper site, proper procedure and IV antibiotics per weight were administered. I began by opening up the previous prepatellar bursal incision approximately 1 cm proximal 1 cm distal. There was expression of necrotic fluid but no large amount of purulence was appreciated. I used a combination of her right sure and a curette to debride the medial malini credit and collection manager bursa. This did not track deep to the joint but did track distally along the anteromedial calf to the area of chronic cellulitis in the lower leg. I irrigated copiously with 9 L of warm saline. I also aspirated the knee joint and about 5 mL of serosanguineous fluid. This was sent to the lab for culture. It did not appear infected. Once I had copiously debrided and irrigated the entire area I packed it with 1 in gauze and closed all but a subcentimeter area of the incision where the packing material exited. I injected 1/4d% Marcaine around the incision and the prepatellar bursa. I then placed the patient in sterile dressing and he was extubated recover in stable condition. There were no known complications.
== END 2021-10-18 17:25 | disposition home or self-care (01) ==
PROVIDERS: Nurse Practitioner; Physician Assistant; PCP Nurse Practitioner Family; Visit Provider Orthopaedic Surgery
PROC: (CPT 27301; principal; 2021-10-18 15:10)
DX: M70.42 Prepatellar bursitis, left knee (principal); L03.116 Cellulitis of left lower limb; L02.416 Cutaneous abscess of left lower limb; Z96.653 Presence of artificial knee joint, bilateral; I10 Essential (primary) hypertension; I48.19 Other persistent atrial fibrillation; Z79.01 Long term (current) use of anticoagulants; Z87.891 Personal history of nicotine dependence
CPT/HCPCS: 27301; 36415; 85610; 87071; 87205; J0330; J0690; J1100; J2250; J2370; J3010

== ENCOUNTER → 2021-10-21 11:14 | Outpatient (BNVA) | payer MEDICARE, OTHER, SELFPAY | PROVIDERS: PCP Nurse Practitioner Family; Visit Provider Internal Medicine | DX: I48.91 Unspecified atrial fibrillation (principal); Z79.01 Long term (current) use of anticoagulants; Z51.81 Encounter for therapeutic drug level monitoring | CPT/HCPCS: 85610; 99211 ==

== ENCOUNTER → 2021-10-25 10:28 | Outpatient (BNVA) | payer MEDICARE, OTHER, SELFPAY | PROVIDERS: PCP Nurse Practitioner Family; Visit Provider Internal Medicine | DX: M70.42 Prepatellar bursitis, left knee (principal); I48.91 Unspecified atrial fibrillation; Z79.01 Long term (current) use of anticoagulants; Z51.81 Encounter for therapeutic drug level monitoring | CPT/HCPCS: 85610; 99211; 99212 ==

== ENCOUNTER → 2021-11-01 08:07 | Outpatient (BNVA) | payer MEDICARE, OTHER, SELFPAY | PROVIDERS: PCP Nurse Practitioner Family; Visit Provider Internal Medicine | DX: S81.002D Unspecified open wound, left knee, subsequent encounter (principal); M71.162 Other infective bursitis, left knee; B96.89 Other specified bacterial agents as the cause of diseases classified elsewhere; I48.91 Unspecified atrial fibrillation; Z79.01 Long term (current) use of anticoagulants; Z51.81 Encounter for therapeutic drug level monitoring | CPT/HCPCS: 85610; 99211; 99212 ==

== ENCOUNTER → 2021-11-07 10:51 | Outpatient (BNVA) | payer MEDICARE, OTHER, SELFPAY | PROVIDERS: Visit Provider Orthopaedic Surgery | DX: T81.31XA Disruption of external operation (surgical) wound, not elsewhere classified, initial encounter (principal); M71.162 Other infective bursitis, left knee; B96.89 Other specified bacterial agents as the cause of diseases classified elsewhere | CPT/HCPCS: 97605; 99212 ==

== ENCOUNTER → 2021-11-11 11:20 | Outpatient (BNVA) | payer MEDICARE, OTHER, SELFPAY | PROVIDERS: Visit Provider Orthopaedic Surgery | DX: M71.162 Other infective bursitis, left knee (principal); I83.12 Varicose veins of left lower extremity with inflammation; B96.89 Other specified bacterial agents as the cause of diseases classified elsewhere | CPT/HCPCS: 99212 ==

== ENCOUNTER → 2021-11-13 13:44 | Outpatient (BNVA) | payer MEDICARE, OTHER, SELFPAY | PROVIDERS: Visit Provider Internal Medicine | DX: M70.42 Prepatellar bursitis, left knee (principal); B96.89 Other specified bacterial agents as the cause of diseases classified elsewhere | CPT/HCPCS: 99202 ==

== ENCOUNTER → 2021-11-15 08:09 | Outpatient (BNVA) | payer MEDICARE, OTHER, SELFPAY | PROVIDERS: PCP Nurse Practitioner Family; Visit Provider Internal Medicine | DX: M71.162 Other infective bursitis, left knee (principal); B96.89 Other specified bacterial agents as the cause of diseases classified elsewhere; I83.12 Varicose veins of left lower extremity with inflammation; I48.91 Unspecified atrial fibrillation; Z79.01 Long term (current) use of anticoagulants; Z51.81 Encounter for therapeutic drug level monitoring | CPT/HCPCS: 85610; 99211; 99212 ==

== ENCOUNTER 2021-11-18 07:13 | Outpatient (REF) | payer MEDICARE, OTHER, SELFPAY ==
[2021-11-18 08:17] LABS: Alanine Aminotransferase 6 U/L (0-40); Albumin Level 3.3 g/dL (3.5-5.0); Alkaline Phosphatase 95 U/L (39-117); Anion Gap 14 (12-20); Aspartate Amino Transferase 14 U/L (5-37); Bilirubin Total 0.5 mg/dL (0.0-1.0); Blood Urea Nitrogen 17 mg/dL (9-16); Calcium 9.1 mg/dL (8.4-10.2); Carbon Dioxide 25 mmol/L (22-29); Chloride 105 mmol/L (96-108); Estimated Glomerular Filt Rate > 60; Glucose Random 105 mg/dL (60-115); Potassium 4.8 mmol/L (3.3-5.1); Sodium 139 mmol/L (135-145); Total Protein 6.7 g/dL (6.5-8.0)
== END 2021-11-18 07:14 | disposition home or self-care (01) ==
LOC: HO.LAB 07:13
PROVIDERS: PCP Nurse Practitioner Family; Visit Provider Orthopaedic Surgery
DX: M71.162 Other infective bursitis, left knee (principal); B96.89 Other specified bacterial agents as the cause of diseases classified elsewhere
CPT/HCPCS: 36415; 80053; 99212

== ENCOUNTER → 2021-11-22 08:01 | Outpatient (BNVA) | payer MEDICARE, OTHER, SELFPAY | PROVIDERS: PCP Nurse Practitioner Family; Visit Provider Internal Medicine | DX: M71.162 Other infective bursitis, left knee (principal); B96.89 Other specified bacterial agents as the cause of diseases classified elsewhere; I48.91 Unspecified atrial fibrillation; Z79.01 Long term (current) use of anticoagulants; Z51.81 Encounter for therapeutic drug level monitoring | CPT/HCPCS: 85610; 99211; 99212 ==

== ENCOUNTER 2021-11-25 08:50 | Outpatient (REF) | payer MEDICARE, OTHER, SELFPAY ==
--- NOTE | ~2021-11-25 | XR_ITS ---
EXAMINATION: XR KNEE, LEFT EXAMINATION: XR knee LT 2V CLINICAL INFORMATION: Pain COMPARISON: Knee radiographs 08/01/2021 TECHNIQUE: 2 views of the knee XR/XR knee LT 2V FINDINGS/IMPRESSION: * Status post total knee arthroplasty with a discontinuous appearance medial femoral condyle from the femoral condylar component suggesting chronic perihardware condylar fracture, with a moth-eaten appearance of the medial and lateral femoral condyles, for which superimposed osteomyelitis cannot be excluded. * Similar appearance of 5 mm of perihardware lucency along the tibial stem component of the prosthesis adjustment of hardware loosening. * Surgical drain is noted along the medial aspect of the tibial metaphysis, consider correlation with drain output.
== END 2021-11-25 08:51 | disposition home or self-care (01) ==
LOC: HO.HOSX 08:50
PROVIDERS: PCP Nurse Practitioner Family; Visit Provider Orthopaedic Surgery
DX: M25.562 Pain in left knee (principal); L02.416 Cutaneous abscess of left lower limb; M71.162 Other infective bursitis, left knee; B96.89 Other specified bacterial agents as the cause of diseases classified elsewhere; Z96.653 Presence of artificial knee joint, bilateral
CPT/HCPCS: 73560; 99212

== ENCOUNTER → 2021-11-28 13:56 | Outpatient (BNVA) | payer MEDICARE, OTHER, SELFPAY | PROVIDERS: PCP Nurse Practitioner Family; Referring Provider Nurse Practitioner Family; Visit Provider Internal Medicine Cardiovascular Disease | DX: I35.0 Nonrheumatic aortic (valve) stenosis (principal); I48.19 Other persistent atrial fibrillation | CPT/HCPCS: 93005; 99212 ==

== ENCOUNTER → 2021-11-29 09:35 | Outpatient (BNVA) | payer MEDICARE, OTHER, SELFPAY | PROVIDERS: PCP Nurse Practitioner Family; Visit Provider Orthopaedic Surgery | DX: M71.162 Other infective bursitis, left knee (principal); B96.89 Other specified bacterial agents as the cause of diseases classified elsewhere | CPT/HCPCS: 99212 ==

== ENCOUNTER → 2021-12-02 08:38 | Outpatient (BNVA) | payer MEDICARE, OTHER, SELFPAY | PROVIDERS: PCP Nurse Practitioner Family; Visit Provider Orthopaedic Surgery | DX: M71.162 Other infective bursitis, left knee (principal); B96.89 Other specified bacterial agents as the cause of diseases classified elsewhere | CPT/HCPCS: 99212 ==

== ENCOUNTER 2021-12-05 07:48 | Outpatient (REF) | payer MEDICARE, OTHER, SELFPAY ==
--- NOTE | ~2021-12-05 | XR_ITS ---
EXAMINATION: XR CHEST CLINICAL INFORMATION: PICC line insertion. COMPARISON: Chest 04/23/2021 TECHNIQUE: Frontal view of the chest was obtained. FINDINGS: The lungs are well-expanded and clear of acute process. The heart size is enlarged. The pulmonary vascularity is normal. There is a right PICC line with its tip in mid SVC. There is old right posterior eighth rib fracture. No additional bony abnormality seen. XR/XR chest 1V IMPRESSION: Mild cardiomegaly. No acute process seen. Right PICC line tip is in mid SVC.
--- NOTE | 2021-12-05 09:49 | HO.PICC ---
[facility] Diagnosis: L KNEE INFECTIVE BURSITIS Indication: GROUP HOME IV ANTIBIOTICS Pertinent Labs: REVIEWED Technique: Following informed consent including risks, benefits and alternatives and using sterile technique including cap and mask, sterile gown, glove and drape, the RIGHT arm was prepped and draped in the usual sterile fashion of full barrier technique with G. Following completion of [place] Protocol the skin and soft tissues were anesthetized with 1% Lidocaine plain. Using ultrasound guidance, CEPHALIC vein access was obtained IN SINGLE ATTEMPT BY THIS RN. Over an 0.018 wire through peel-away sheath, a SINGLE LUMEN, PASV, 4-[place] PICC line was positioned. Catheter length is 43 CM internal length, 0 CM external length, for a total trimmed length of 43 CM. The procedure was performed in [facility]. Tip verification was performed by PORTABLE CXR. Tip located in SVC PER RADIOLOGIST REPORT. Ultrasound was used to document vein patency and for needle entry. A formal ultrasound picture and cardiac rhythm strip was recorded. Vascular Oracle Adf Developer has released the line for use and it is currently dressed with a StatLock, Tegaderm, and CHG disc. Verification has been performed for blood return and line patency. Arm Circumference: 39 CM Equipment: [id number] Defense POWERPICC SOLO Catheter Type: SINGLE LUMEN, PASV, 4-[place] Lot #: [id number]
== END 2021-12-05 07:49 | disposition home or self-care (01) ==
LOC: HO.RADIR 07:48
PROVIDERS: PCP Nurse Practitioner Family; Visit Provider Internal Medicine
DX: M71.162 Other infective bursitis, left knee (principal); B96.89 Other specified bacterial agents as the cause of diseases classified elsewhere; S41.101A Unspecified open wound of right upper arm, initial encounter; X58.XXXA Exposure to other specified factors, initial encounter; Y93.9 Activity, unspecified; Y92.9 Unspecified place or not applicable; Y99.9 Unspecified external cause status; Z48.817 Encounter for surgical aftercare following surgery on the skin and subcutaneous tissue
CPT/HCPCS: 36573; 71045; 96365; 99212; C1751

== ENCOUNTER → 2021-12-06 08:02 | Outpatient (BNVA) | payer MEDICARE, OTHER, SELFPAY | PROVIDERS: PCP Nurse Practitioner Family; Visit Provider Internal Medicine | DX: I48.91 Unspecified atrial fibrillation (principal); Z79.01 Long term (current) use of anticoagulants; Z51.81 Encounter for therapeutic drug level monitoring | CPT/HCPCS: 85610; 99211 ==

== ENCOUNTER → 2021-12-10 08:03 | Outpatient (BNVA) | payer MEDICARE, OTHER, SELFPAY | PROVIDERS: Visit Provider Physician Assistant | DX: Z48.00 Encounter for change or removal of nonsurgical wound dressing (principal); M71.162 Other infective bursitis, left knee; B96.89 Other specified bacterial agents as the cause of diseases classified elsewhere; M70.42 Prepatellar bursitis, left knee | CPT/HCPCS: 99212 ==

== ENCOUNTER 2021-12-12 12:04 | Outpatient (REF) | payer MEDICARE, OTHER, SELFPAY ==
[2021-12-12 12:10] LABS: MANUAL DIFF FLAG NO
[2021-12-12 12:20] LABS: Basophils Absolute Auto 0.1 X10*3/uL (0.0-0.2); Eosinophils Absolute Auto 0.2 X10*3/uL (0.0-0.4); Eosinophils Percent Auto 2.9 % (0-4); Hematocrit 36.5 % (42.0-52.0); Hemoglobin 12.1 g/dl (14.0-18.0); Imm Gran Abs Auto 0.03 X10*3/uL (0.00-0.03); Imm Gran Pct Auto 0.4 % (0.0-0.4); Lymphocytes Absolute Auto 1.7 X10*3/uL (1.2-4.9); Lymphocytes Percent Auto 21.8 % (20-40); Mean Corpuscular HGB Conc 33.2 g/dl (31.0-36.0); Mean Corpuscular Hemoglobin 28.7 pg (27.0-33.0); Mean Corpuscular Volume 86.7 fL (80.0-98.0); Monocytes Absolute Auto 0.6 X10*3/uL (0.1-1.2); Monocytes Percent Auto 8.1 % (2-11); Neutrophils Absolute Auto 5.1 x10*3/uL (2.0-8.3); Neutrophils Percent Auto 65.8 % (45-73); Platelet Count 218 X10*3/uL (160-400); Red Blood Count 4.21 X10*6/uL (4.60-5.80); Red Cell Distribution Width 13.8 % (11.0-16.0); White Blood Count 7.7 X10*3/uL (4.8-10.8)
[2021-12-12 13:24] LABS: Alanine Aminotransferase 8 U/L (0-40); Albumin Level 3.4 g/dL (3.5-5.0); Alkaline Phosphatase 89 U/L (39-117); Aspartate Amino Transferase 14 U/L (5-37); Bilirubin Direct 0.3 mg/dL (0.0-0.5); Bilirubin Total 0.6 mg/dL (0.0-1.0); Blood Urea Nitrogen 16 mg/dL (9-16); Estimated Glomerular Filt Rate > 60; Total Protein 6.6 g/dL (6.5-8.0)
== END 2021-12-12 12:05 | disposition home or self-care (01) ==
LOC: HO.HVNA 12:04
PROVIDERS: Visit Provider Internal Medicine
DX: M71.162 Other infective bursitis, left knee (principal); I83.12 Varicose veins of left lower extremity with inflammation; Z79.2 Long term (current) use of antibiotics
CPT/HCPCS: 36415; 80076; 82550; 82565; 84520; 85025; 99212

== ENCOUNTER → 2021-12-13 10:29 | Outpatient (BNVA) | payer MEDICARE, OTHER, SELFPAY | PROVIDERS: PCP Nurse Practitioner Family; Visit Provider Internal Medicine | DX: M71.162 Other infective bursitis, left knee (principal); B96.89 Other specified bacterial agents as the cause of diseases classified elsewhere | CPT/HCPCS: 99212 ==

== ENCOUNTER → 2021-12-16 09:29 | Outpatient (BNVA) | payer MEDICARE, OTHER, SELFPAY | PROVIDERS: PCP Nurse Practitioner Family; Visit Provider Orthopaedic Surgery | DX: M71.162 Other infective bursitis, left knee (principal); B96.89 Other specified bacterial agents as the cause of diseases classified elsewhere | CPT/HCPCS: 97605 ==

== ENCOUNTER 2021-12-19 13:20 | Outpatient (REF) | payer MEDICARE, OTHER, SELFPAY ==
[2021-12-19 13:25] LABS: MANUAL DIFF FLAG NO
[2021-12-19 13:30] LABS: Basophils Absolute Auto 0.1 X10*3/uL (0.0-0.2); Basophils Percent Auto 0.8 % (0-2); Eosinophils Absolute Auto 0.3 X10*3/uL (0.0-0.4); Hematocrit 38.8 % (42.0-52.0); Hemoglobin 12.6 g/dl (14.0-18.0); Imm Gran Abs Auto 0.03 X10*3/uL (0.00-0.03); Imm Gran Pct Auto 0.4 % (0.0-0.4); Lymphocytes Absolute Auto 1.9 X10*3/uL (1.2-4.9); Lymphocytes Percent Auto 22.1 % (20-40); Mean Corpuscular HGB Conc 32.5 g/dl (31.0-36.0); Mean Corpuscular Hemoglobin 28.3 pg (27.0-33.0); Mean Corpuscular Volume 87.2 fL (80.0-98.0); Mean Platelet Volume 9.9 fL (9.4-12.4); Monocytes Absolute Auto 0.6 X10*3/uL (0.1-1.2); Monocytes Percent Auto 6.4 % (2-11); Neutrophils Absolute Auto 5.8 x10*3/uL (2.0-8.3); Neutrophils Percent Auto 67.3 % (45-73); Platelet Count 255 X10*3/uL (160-400); Red Blood Count 4.45 X10*6/uL (4.60-5.80); Red Cell Distribution Width 14.2 % (11.0-16.0); White Blood Count 8.6 X10*3/uL (4.8-10.8)
[2021-12-19 14:15] LABS: Alanine Aminotransferase 8 U/L (0-40); Albumin Level 3.7 g/dL (3.5-5.0); Alkaline Phosphatase 97 U/L (39-117); Aspartate Amino Transferase 17 U/L (5-37); Bilirubin Direct 0.3 mg/dL (0.0-0.5); Bilirubin Total 0.8 mg/dL (0.0-1.0); Blood Urea Nitrogen 13 mg/dL (9-16); Estimated Glomerular Filt Rate > 60; Total Protein 6.8 g/dL (6.5-8.0)
== END 2021-12-19 13:21 | disposition home or self-care (01) ==
LOC: HO.HVNA 13:20
PROVIDERS: Visit Provider Internal Medicine
DX: Z51.81 Encounter for therapeutic drug level monitoring (principal); Z79.2 Long term (current) use of antibiotics
CPT/HCPCS: 36415; 80076; 82550; 82565; 84520; 85025

== ENCOUNTER → 2021-12-20 08:43 | Outpatient (BNVA) | payer MEDICARE, OTHER, SELFPAY | PROVIDERS: Visit Provider Internal Medicine | DX: I48.91 Unspecified atrial fibrillation (principal); Z79.01 Long term (current) use of anticoagulants; Z51.81 Encounter for therapeutic drug level monitoring | CPT/HCPCS: 85610 ==

== ENCOUNTER → 2021-12-23 07:58 | Outpatient (BNVA) | payer MEDICARE, OTHER, SELFPAY | PROVIDERS: Visit Provider Orthopaedic Surgery | DX: M71.162 Other infective bursitis, left knee (principal); B96.89 Other specified bacterial agents as the cause of diseases classified elsewhere | CPT/HCPCS: 99212 ==

== ENCOUNTER 2021-12-26 12:59 | Outpatient (REF) | payer MEDICARE, OTHER, SELFPAY ==
[2021-12-26 13:01] LABS: MANUAL DIFF FLAG NO
[2021-12-26 13:05] LABS: Basophils Absolute Auto 0.1 X10*3/uL (0.0-0.2); Basophils Percent Auto 0.9 % (0-2); Eosinophils Absolute Auto 0.4 X10*3/uL (0.0-0.4); Eosinophils Percent Auto 5.2 % (0-4); Hematocrit 38.6 % (42.0-52.0); Hemoglobin 12.6 g/dl (14.0-18.0); Imm Gran Abs Auto 0.03 X10*3/uL (0.00-0.03); Imm Gran Pct Auto 0.4 % (0.0-0.4); Lymphocytes Absolute Auto 1.7 X10*3/uL (1.2-4.9); Lymphocytes Percent Auto 22.7 % (20-40); Mean Corpuscular HGB Conc 32.6 g/dl (31.0-36.0); Mean Corpuscular Hemoglobin 28.3 pg (27.0-33.0); Mean Corpuscular Volume 86.7 fL (80.0-98.0); Mean Platelet Volume 9.9 fL (9.4-12.4); Monocytes Absolute Auto 0.6 X10*3/uL (0.1-1.2); Neutrophils Absolute Auto 4.7 x10*3/uL (2.0-8.3); Neutrophils Percent Auto 62.8 % (45-73); Platelet Count 236 X10*3/uL (160-400); Red Blood Count 4.45 X10*6/uL (4.60-5.80); Red Cell Distribution Width 14.2 % (11.0-16.0); White Blood Count 7.5 X10*3/uL (4.8-10.8)
[2021-12-26 13:54] LABS: Alanine Aminotransferase 8 U/L (0-40); Albumin Level 3.7 g/dL (3.5-5.0); Alkaline Phosphatase 97 U/L (39-117); Aspartate Amino Transferase 13 U/L (5-37); Bilirubin Direct 0.3 mg/dL (0.0-0.5); Bilirubin Total 0.6 mg/dL (0.0-1.0); Blood Urea Nitrogen 21 mg/dL (9-16); Estimated Glomerular Filt Rate > 60; Total Protein 6.8 g/dL (6.5-8.0)
== END 2021-12-26 13:00 | disposition home or self-care (01) ==
LOC: HO.HVNA 12:59
PROVIDERS: Visit Provider Internal Medicine
DX: M71.162 Other infective bursitis, left knee (principal); B96.89 Other specified bacterial agents as the cause of diseases classified elsewhere
CPT/HCPCS: 36415; 80076; 82550; 82565; 84520; 85025

== ENCOUNTER 2022-01-02 13:17 | Outpatient (REF) | payer MEDICARE, OTHER, SELFPAY ==
[2022-01-02 13:21] LABS: MANUAL DIFF FLAG NO
[2022-01-02 13:32] LABS: Basophils Absolute Auto 0.1 X10*3/uL (0.0-0.2); Basophils Percent Auto 0.8 % (0-2); Eosinophils Absolute Auto 0.4 X10*3/uL (0.0-0.4); Eosinophils Percent Auto 5.1 % (0-4); Hematocrit 38.3 % (42.0-52.0); Hemoglobin 12.4 g/dl (14.0-18.0); Imm Gran Abs Auto 0.03 X10*3/uL (0.00-0.03); Imm Gran Pct Auto 0.4 % (0.0-0.4); Lymphocytes Absolute Auto 1.4 X10*3/uL (1.2-4.9); Lymphocytes Percent Auto 19.2 % (20-40); Mean Corpuscular HGB Conc 32.4 g/dl (31.0-36.0); Mean Corpuscular Hemoglobin 28.2 pg (27.0-33.0); Mean Platelet Volume 10.1 fL (9.4-12.4); Monocytes Absolute Auto 0.7 X10*3/uL (0.1-1.2); Monocytes Percent Auto 9.3 % (2-11); Neutrophils Absolute Auto 4.7 x10*3/uL (2.0-8.3); Neutrophils Percent Auto 65.2 % (45-73); Platelet Count 223 X10*3/uL (160-400); Red Cell Distribution Width 14.4 % (11.0-16.0); White Blood Count 7.3 X10*3/uL (4.8-10.8)
[2022-01-02 14:12] LABS: Alanine Aminotransferase 10 U/L (0-40); Albumin Level 3.7 g/dL (3.5-5.0); Alkaline Phosphatase 91 U/L (39-117); Aspartate Amino Transferase 16 U/L (5-37); Bilirubin Direct 0.4 mg/dL (0.0-0.5); Bilirubin Total 0.9 mg/dL (0.0-1.0); Blood Urea Nitrogen 16 mg/dL (9-16); Estimated Glomerular Filt Rate > 60; Total Protein 6.9 g/dL (6.5-8.0)
== END 2022-01-02 13:18 | disposition home or self-care (01) ==
LOC: HO.HVNA 13:17
PROVIDERS: Visit Provider Internal Medicine
DX: Z45.2 Encounter for adjustment and management of vascular access device (principal); B96.89 Other specified bacterial agents as the cause of diseases classified elsewhere
CPT/HCPCS: 36415; 80076; 82550; 82565; 84520; 85025

== ENCOUNTER 2022-01-03 09:29 | Outpatient (REF) | payer MEDICARE, OTHER, SELFPAY | END 2022-01-03 09:30 | disposition home or self-care (01) | LOC: HO.HOSX 09:29 | PROVIDERS: Visit Provider Internal Medicine | DX: L03.90 Cellulitis, unspecified (principal); I48.91 Unspecified atrial fibrillation; Z51.81 Encounter for therapeutic drug level monitoring; Z79.01 Long term (current) use of anticoagulants | CPT/HCPCS: 85610; 99211; 99212 ==

== ENCOUNTER 2022-01-09 15:09 | Outpatient (REF) | payer MEDICARE, OTHER, SELFPAY ==
[2022-01-09 15:13] LABS: MANUAL DIFF FLAG NO
[2022-01-09 15:17] LABS: Basophils Absolute Auto 0.1 X10*3/uL (0.0-0.2); Basophils Percent Auto 0.8 % (0-2); Eosinophils Absolute Auto 0.3 X10*3/uL (0.0-0.4); Eosinophils Percent Auto 3.7 % (0-4); Hematocrit 39.5 % (42.0-52.0); Hemoglobin 12.9 g/dl (14.0-18.0); Imm Gran Abs Auto 0.03 X10*3/uL (0.00-0.03); Imm Gran Pct Auto 0.4 % (0.0-0.4); Lymphocytes Absolute Auto 2.5 X10*3/uL (1.2-4.9); Lymphocytes Percent Auto 29.6 % (20-40); Mean Corpuscular HGB Conc 32.7 g/dl (31.0-36.0); Mean Corpuscular Hemoglobin 28.3 pg (27.0-33.0); Mean Corpuscular Volume 86.6 fL (80.0-98.0); Mean Platelet Volume 9.7 fL (9.4-12.4); Monocytes Absolute Auto 0.8 X10*3/uL (0.1-1.2); Monocytes Percent Auto 9.7 % (2-11); Neutrophils Absolute Auto 4.6 x10*3/uL (2.0-8.3); Neutrophils Percent Auto 55.8 % (45-73); Platelet Count 267 X10*3/uL (160-400); Red Blood Count 4.56 X10*6/uL (4.60-5.80); Red Cell Distribution Width 14.5 % (11.0-16.0); White Blood Count 8.3 X10*3/uL (4.8-10.8)
[2022-01-09 16:00] LABS: Alanine Aminotransferase 11 U/L (0-40); Albumin Level 3.8 g/dL (3.5-5.0); Alkaline Phosphatase 87 U/L (39-117); Aspartate Amino Transferase 17 U/L (5-37); Bilirubin Direct 0.2 mg/dL (0.0-0.5); Bilirubin Total 0.4 mg/dL (0.0-1.0); Blood Urea Nitrogen 17 mg/dL (9-16); Estimated Glomerular Filt Rate > 60; Total Protein 7.1 g/dL (6.5-8.0)
== END 2022-01-09 15:10 | disposition home or self-care (01) ==
LOC: HO.HVNA 15:09
PROVIDERS: Visit Provider Internal Medicine
DX: Z79.2 Long term (current) use of antibiotics (principal)
CPT/HCPCS: 36415; 80076; 82550; 82565; 84520; 85025

== ENCOUNTER → 2022-01-10 10:26 | Outpatient (BNVA) | payer MEDICARE, OTHER, SELFPAY | PROVIDERS: PCP Nurse Practitioner Family; Visit Provider Surgery Vascular Surgery | DX: I83.12 Varicose veins of left lower extremity with inflammation (principal) | CPT/HCPCS: 36475 ==

== ENCOUNTER 2022-01-14 14:30 | Outpatient (REF) | payer MEDICARE, OTHER, SELFPAY ==
--- NOTE | ~2022-01-14 | US_ITS ---
EXAMINATION: US VENOUS ULTRASOUND WITH DOPPLER LOWER EXTREMITY, LEFT CLINICAL INFORMATION: Status post GSV ablation 4 days ago COMPARISON: None TECHNIQUE: Ultrasound of the deep veins is performed from the hip to the calf with compression sonography and color and pulse Doppler assessment. Spectral analysis with color-flow imaging is performed. FINDINGS: The GSV is thrombosed to the level of the saphenofemoral junction is no extension of clot into the deep system. There is normal venous compression and respiratory variation and augmented flow noted throughout the remainder of the venous system. The visualized common femoral vein, superficial femoral vein, profunda femoral vein, popliteal vein, and the trifurcation region shows no evidence of deep venous thrombosis. There is no significant popliteal fossa cyst. The contralateral right common femoral vein appears normal. If the patient's symptoms persist, followup ultrasound in 5 days 7 days might be of value to exclude proximal propagation from a non-visualized calf vein. US/US venous duplex LE IMPRESSION: No DVT demonstrated in the left lower extremity.
== END 2022-01-14 14:31 | disposition home or self-care (01) ==
LOC: HO.US 14:30
PROVIDERS: Visit Provider Surgery Vascular Surgery
DX: M79.605 Pain in left leg (principal)
CPT/HCPCS: 93971

== ENCOUNTER → 2022-01-17 08:46 | Outpatient (BNVA) | payer MEDICARE, OTHER, SELFPAY | PROVIDERS: Visit Provider Internal Medicine | DX: M71.162 Other infective bursitis, left knee (principal); R20.0 Anesthesia of skin; B96.89 Other specified bacterial agents as the cause of diseases classified elsewhere; Z96.652 Presence of left artificial knee joint; I48.91 Unspecified atrial fibrillation; Z51.81 Encounter for therapeutic drug level monitoring; Z79.01 Long term (current) use of anticoagulants | CPT/HCPCS: 85610; 99211; 99212; J1100 ==

== ENCOUNTER → 2022-01-23 10:46 | Outpatient (BNVA) | payer MEDICARE, OTHER, SELFPAY | PROVIDERS: PCP Nurse Practitioner Family; Visit Provider Surgery Vascular Surgery | DX: I83.12 Varicose veins of left lower extremity with inflammation (principal); Z98.890 Other specified postprocedural states | CPT/HCPCS: 99212 ==

== ENCOUNTER → 2022-01-31 10:03 | Outpatient (BNVA) | payer MEDICARE, OTHER, SELFPAY | PROVIDERS: Visit Provider Internal Medicine | DX: L02.416 Cutaneous abscess of left lower limb (principal); I48.91 Unspecified atrial fibrillation; Z79.01 Long term (current) use of anticoagulants; Z51.81 Encounter for therapeutic drug level monitoring | CPT/HCPCS: 85610; 99211; 99212 ==

== ENCOUNTER → 2022-02-07 07:32 | Outpatient (BNVA) | payer MEDICARE, OTHER, SELFPAY | PROVIDERS: PCP Nurse Practitioner Family; Visit Provider Surgery Vascular Surgery | DX: I83.12 Varicose veins of left lower extremity with inflammation (principal) | CPT/HCPCS: 36475 ==

== ENCOUNTER 2022-02-10 14:50 | Outpatient (REF) | payer MEDICARE, OTHER, SELFPAY ==
--- NOTE | ~2022-02-10 | US_ITS ---
EXAMINATION: US VENOUS ULTRASOUND WITH DOPPLER LOWER EXTREMITY, LEFT CLINICAL INFORMATION: Left leg pain. COMPARISON: None TECHNIQUE: Ultrasound of the deep veins is performed from the hip to the calf with compression sonography and color and pulse Doppler assessment. Spectral analysis with color-flow imaging is performed. FINDINGS: There is normal venous compression and respiratory variation and augmented flow. The visualized common femoral vein, superficial femoral vein, profunda femoral vein, popliteal vein, and the trifurcation region shows no evidence of deep venous thrombosis. Elongated reniform left inguinal lymph node measuring 4.9 cm in long axis. No surrounding abnormality. No left popliteal cyst. The subcutaneous soft tissues are unremarkable. US/US venous duplex LE LT IMPRESSION: 1. No evidence for deep venous thrombosis in the visualized veins of the left lower extremity. 2. Elongated left inguinal lymph node demonstrates otherwise benign features. This could be baseline for the patient or represent a chronic reactive node. The overall appearance is not pathologic.
== END 2022-02-10 14:51 | disposition home or self-care (01) ==
LOC: HO.US 14:50
PROVIDERS: Visit Provider Surgery Vascular Surgery
DX: M79.605 Pain in left leg (principal)
CPT/HCPCS: 93971

== ENCOUNTER → 2022-02-14 08:50 | Outpatient (BNVA) | payer MEDICARE, OTHER, SELFPAY | PROVIDERS: Visit Provider Internal Medicine | DX: M71.162 Other infective bursitis, left knee (principal); Z79.01 Long term (current) use of anticoagulants; B96.89 Other specified bacterial agents as the cause of diseases classified elsewhere; E66.09 Other obesity due to excess calories; Z96.652 Presence of left artificial knee joint; I48.91 Unspecified atrial fibrillation; Z51.81 Encounter for therapeutic drug level monitoring | CPT/HCPCS: 85610; 99211; 99212 ==

== ENCOUNTER → 2022-02-27 09:45 | Outpatient (BNVA) | payer MEDICARE, OTHER, SELFPAY | PROVIDERS: PCP Nurse Practitioner Family; Visit Provider Surgery Vascular Surgery | DX: I83.12 Varicose veins of left lower extremity with inflammation (principal); I89.0 Lymphedema, not elsewhere classified | CPT/HCPCS: 99212 ==

== ENCOUNTER → 2022-02-28 13:58 | Outpatient (BNVA) | payer MEDICARE, OTHER, SELFPAY | PROVIDERS: PCP Nurse Practitioner Family; Visit Provider Internal Medicine | DX: M70.42 Prepatellar bursitis, left knee (principal) | CPT/HCPCS: 99212 ==

== ENCOUNTER → 2022-03-07 08:58 | Outpatient (BNVA) | payer MEDICARE, OTHER, SELFPAY | PROVIDERS: PCP Nurse Practitioner Family; Visit Provider Internal Medicine | DX: I48.91 Unspecified atrial fibrillation (principal); Z79.01 Long term (current) use of anticoagulants; Z51.81 Encounter for therapeutic drug level monitoring | CPT/HCPCS: 85610; 99211 ==

== ENCOUNTER → 2022-03-28 08:00 | Outpatient (BNVA) | payer MEDICARE, OTHER, SELFPAY | PROVIDERS: PCP Nurse Practitioner Family; Visit Provider Internal Medicine | DX: I48.91 Unspecified atrial fibrillation (principal); Z79.01 Long term (current) use of anticoagulants; Z51.81 Encounter for therapeutic drug level monitoring | CPT/HCPCS: 85610; 99211 ==

== ENCOUNTER → 2022-04-16 14:37 | Outpatient (BNVA) | payer MEDICARE, OTHER, SELFPAY | PROVIDERS: PCP Nurse Practitioner Family; Referring Provider Nurse Practitioner Family; Visit Provider Internal Medicine Cardiovascular Disease | DX: I48.19 Other persistent atrial fibrillation (principal); I35.0 Nonrheumatic aortic (valve) stenosis; I10 Essential (primary) hypertension | CPT/HCPCS: 99212 ==

== ENCOUNTER → 2022-04-17 08:00 | Outpatient (BNVA) | payer MEDICARE, OTHER, SELFPAY | PROVIDERS: PCP Nurse Practitioner Family; Visit Provider Internal Medicine | DX: I48.91 Unspecified atrial fibrillation (principal); Z79.01 Long term (current) use of anticoagulants; Z51.81 Encounter for therapeutic drug level monitoring | CPT/HCPCS: 85610; 99211 ==

== ENCOUNTER → 2022-05-01 07:19 | Outpatient (REF) | payer MEDICARE, OTHER, SELFPAY ==
--- NOTE | 2022-05-01 07:23 | CA_ITS ---
Transthoracic Echocardiogram Patient (Last, First, Middle): Andre Tabor, Gender: Male Date of : 1950 Age: 71 Procedure Date: 05/01/2022 Procedure Type: Transthoracic Echocardiogram Location: OP Height: 182.88 cm Weight: 131.54 kg BSA: 2.49 m2 Heart Rate: bpm BP: 106 / 90 mmHg Cylinder Tester: TO Referring MD: Tutu Daigle MD Pound Keeper: Tutu Daigle MD Symptoms: I48.19 - Other persistent atrial fibrillation Study Quality: Technically Difficult/Contrast Conclusions: - Normal left ventricular size and systolic function. There is mildly increased left ventricular wall thickness. The visually estimated ejection fraction is between 60-65%. - Normal right ventricular cavity size and systolic function. - There is severe aortic valve stenosis. The peak aortic velocity is 3.66 m/s. The mean gradient is 36 mmHg. The aortic valve area is 0.90 cm2. Findings Procedure Information Contrast agent, definity, is being given per protocol without apparent complications. Left Ventricle Normal left ventricular size and systolic function. There is mildly increased left ventricular wall thickness. The visually estimated ejection fraction is between 60-65%. There is no evidence of regional wall motion abnormalities. Diastolic function is indeterminate on the basis of available data. There is severe septal asymmetric hypertrophy. Right Ventricle Normal right ventricular cavity size and systolic function. Atria The left atrium is mildly dilated. The right atrium is normal in size. Aortic Valve There is a normal trileaflet aortic valve. There is severe calcification of the aortic valve. There is moderate thickening of the aortic valve. There is severe aortic valve stenosis. The peak aortic velocity is 3.66 m/s. The mean gradient is 36 mmHg. The aortic valve area is 0.90 cm2. There is trace (trivial) aortic valve regurgitation. Dimensionless index 0.22 Mitral Valve The mitral valve appears normal. There is trace mitral valve regurgitation. There is no mitral valve stenosis. Pulmonic Valve The pulmonic valve is normal. There is trace pulmonic valve regurgitation. Tricuspid Valve Normal tricuspid valve structure. There is mild to moderate tricuspid valve regurgitation. Normal right atrial pressure. There is no evidence of pulmonary hypertension. Great Vessels There is mild dilatation of the ascending aorta measuring 3.70 cm. The visualized portions of the pulmonary artery and branches are normal. Venous The inferior vena cava is normal in size and collapses greater than 50% with inspiration. Pericardium/Pleural There is no evidence of pericardial effusion. Prior Study Comparison Significant changes compared to prior study dated: 05/07/2021. Severe is present. Measurements 2D Linear Measurements IVSd: 1.50 0.6-0.9/0.6-1.0 cm LVIDd: 4.12 3.9-5.3/4.2-5.9 cm LVIDd Index: 1.65 2.4-3.2/2.2-3.1 cm/m2 LVIDs: 2.53 2.0-3.6 cm LVPWd: 1.29 0.7-1.1 cm LA Diam: 5.00 2.7-3.8/3.0-4.0 cm LAIDs Index: 2.01 1.5-2.3 cm/m2 LV Mass: 270.41 67-162/88-224 g LV Mass Index: 108.60 43-95/49-115 g/m2 LVOT Diam: 2.20 3.0+(-)1.3 cm 2D Systolic Function EF 4C: 66.50 >55% EF 2C: 65.60 >55% EF BiP: 65.90 >55% Mitral Valve MV Pk E: 1.22 MV Decel Time: 211.00 E'Lateral: 10.60 E'Medial: 10.00 E/E' Med: 12.20 E/E' Lat: 11.50 PHT: 62.00 MVA PHT: 3.55 Decel Duchesne: 5.77 Aortic Valve AoV Pk Skip: 3.66 AoV Mn Skip: 2.29 AoV VTI: 0.69 AoV Pk Grad: 54.00 Aov Mn Grad: 36.00 JANIE Cont.VTI: 0.90 LVOT LVOT Pk Skip: 0.81 LVOT Mn Ksip: 0.58 LVOT VTI: 0.18 LVOT Pk Grad: 3.00 LVOT Mn Grad: 2.00 LVOT Diam: 2.20 LVOT Area: 3.80 Diastolic Function MV Pk E: 1.22 E'Medial: 10.00 E/E' Med: 12.20 E' Laterial: 10.60 E/E' Lat: 11.50 Right Ventricle TAPSE (mm): 22.90 TVS' Skip: 11.00 Tricuspid Valve TR Pk Skip: 2.46 TR Pk Grad: 24.00 RA Press: 3.00 RVSP: 27.00 Great Vessels Aorta Sinus of Valsalva: 3.34 2.0-3.5 cm Ao Asc: 3.70 2.1-3.4 cm Updated in Other Vendor System with Status of Final Tutu Daigle MD electronically signed on 05/03/2022 8:21:27 PM with status of Final
== END ==
LOC: HO.CARD 07:19
PROVIDERS: Visit Provider Internal Medicine Cardiovascular Disease
DX: I48.19 Other persistent atrial fibrillation (principal)
CPT/HCPCS: 93306; Q9957

== ENCOUNTER 2022-05-08 12:57 | Outpatient (REF) | payer MEDICARE, SELFPAY ==
--- NOTE | 2022-05-08 08:30 | EMG_ITS ---
Right median and ulnar motor and sensory studies were performed. Right radial and sensory study was performed and needle examination was performed. IMPRESSION: Moderate to severe right chronic median neuropathy across carpal tunnel. MD AME Ferraro/MIKE / [phone]
== END 2022-05-08 12:58 | disposition home or self-care (01) ==
LOC: HO.NEURO 12:57
PROVIDERS: Visit Provider Orthopaedic Surgery
DX: R20.0 Anesthesia of skin (principal); M79.641 Pain in right hand; M79.642 Pain in left hand
CPT/HCPCS: 95886; 95909

== ENCOUNTER → 2022-05-09 08:00 | Outpatient (BNVA) | payer MEDICARE, SELFPAY | PROVIDERS: PCP Nurse Practitioner Family; Visit Provider Internal Medicine | DX: I48.91 Unspecified atrial fibrillation (principal); Z79.01 Long term (current) use of anticoagulants; Z51.81 Encounter for therapeutic drug level monitoring | CPT/HCPCS: 85610; 99211 ==

== ENCOUNTER → 2022-05-14 14:08 | Outpatient (BNVA) | payer MEDICARE, SELFPAY | PROVIDERS: PCP Nurse Practitioner Family; Referring Provider Nurse Practitioner Family; Visit Provider Internal Medicine Cardiovascular Disease | DX: I35.0 Nonrheumatic aortic (valve) stenosis (principal); I48.19 Other persistent atrial fibrillation; I10 Essential (primary) hypertension | CPT/HCPCS: 99212 ==

== ENCOUNTER 2022-05-20 07:31 | Outpatient (REF) | payer MEDICARE, SELFPAY ==
[2022-05-20 11:37] LABS: MANUAL DIFF FLAG NO
[2022-05-20 11:52] LABS: Basophils Absolute Auto 0.1 X10*3/uL (0.0-0.2); Basophils Percent Auto 0.9 % (0-2); Eosinophils Absolute Auto 0.2 X10*3/uL (0.0-0.4); Eosinophils Percent Auto 2.3 % (0-4); Hematocrit 41.8 % (42.0-52.0); Hemoglobin 13.7 g/dl (14.0-18.0); Imm Gran Abs Auto 0.03 X10*3/uL (0.00-0.03); Imm Gran Pct Auto 0.4 % (0.0-0.4); Lymphocytes Absolute Auto 1.8 X10*3/uL (1.2-4.9); Lymphocytes Percent Auto 25.1 % (20-40); Mean Corpuscular HGB Conc 32.8 g/dl (31.0-36.0); Mean Corpuscular Hemoglobin 28.9 pg (27.0-33.0); Mean Corpuscular Volume 88.2 fL (80.0-98.0); Mean Platelet Volume 10.3 fL (9.4-12.4); Monocytes Absolute Auto 0.6 X10*3/uL (0.1-1.2); Neutrophils Absolute Auto 4.4 x10*3/uL (2.0-8.3); Neutrophils Percent Auto 62.3 % (45-73); Platelet Count 252 X10*3/uL (160-400); Red Blood Count 4.74 X10*6/uL (4.60-5.80); Red Cell Distribution Width 13.2 % (11.0-16.0)
[2022-05-20 12:07] LABS: Alanine Aminotransferase 9 U/L (0-40); Albumin Level 3.7 g/dL (3.5-5.0); Alkaline Phosphatase 76 U/L (39-117); Anion Gap 16 (12-20); Aspartate Amino Transferase 14 U/L (5-37); Bilirubin Total 0.7 mg/dL (0.0-1.0); Blood Urea Nitrogen 16 mg/dL (9-16); Calcium 8.8 mg/dL (8.4-10.2); Carbon Dioxide 23 mmol/L (22-29); Chloride 107 mmol/L (96-108); Cholesterol 138 mg/dL; Estimated Glomerular Filt Rate > 60; Glucose Fasting 106 mg/dL (60-99); HDL Cholesterol 44 mg/dL; LDL Cholesterol Calculated 79 mg/dl; Potassium 4.6 mmol/L (3.3-5.1); Sodium 141 mmol/L (135-145); Total Protein 6.9 g/dL (6.5-8.0); Triglycerides 78 mg/dL
[2022-05-20 12:16] LABS: Appearance Urine Clear; Color Urine Yellow; Glucose Urine UA Negative (Negative); Leukocyte Esterase Urine Negative (Negative); Nitrite Urine Negative (Negative); PH 5.5 (5.0-9.0); Specific Gravity - Urine 1.015 (1.005-1.025); Urine Blood Negative (Negative); Urine Ketones Negative (Negative); Urine Protein Negative (Neg-Trace)
[2022-05-20 12:27] LABS: TSH reflex Free T4 0.49 uIU/mL (0.32-4.0)
== END 2022-05-20 07:32 | disposition home or self-care (01) ==
LOC: HO.HMGCLDS 07:31
PROVIDERS: PCP Nurse Practitioner Family; Visit Provider Nurse Practitioner Family
DX: I10 Essential (primary) hypertension (principal)
CPT/HCPCS: 36415; 80053; 80061; 81003; 84443; 85025

== ENCOUNTER → 2022-05-27 09:10 | Outpatient (BNVA) | payer MEDICARE, SELFPAY | PROVIDERS: PCP Nurse Practitioner Family; Visit Provider Surgery Vascular Surgery | DX: I89.0 Lymphedema, not elsewhere classified (principal) | CPT/HCPCS: 99212 ==

== ENCOUNTER → 2022-05-30 08:01 | Outpatient (BNVA) | payer MEDICARE, SELFPAY | PROVIDERS: PCP Nurse Practitioner Family; Visit Provider Internal Medicine | DX: I48.91 Unspecified atrial fibrillation (principal); Z79.01 Long term (current) use of anticoagulants; Z51.81 Encounter for therapeutic drug level monitoring | CPT/HCPCS: 85610; 99211 ==

== ENCOUNTER → 2022-06-16 14:31 | Outpatient (BNVA) | payer MEDICARE, SELFPAY | PROVIDERS: PCP Nurse Practitioner Family; Visit Provider Orthopaedic Surgery | DX: G56.01 Carpal tunnel syndrome, right upper limb (principal) | CPT/HCPCS: 99212 ==

== ENCOUNTER 2022-06-26 06:20 | Day surgery (SDC) | payer MEDICARE, SELFPAY ==
[2022-06-26 06:26] VITALS: BMI 40.6
--- NOTE | 2022-06-26 08:02 | MHC.SHP ---
Pre-Procedural Eval Section A Date of Service: 06/26/22 The patient is an INPATIENT: No The History & Physical has been completed within 30 days and I have reviewed it.: Yes Section B Chief Complaint: Carpal tunnel syndrome, right upper limb Allergies: Allergies Allergy/AdvReac Type Severity Reaction Status Date / Time No Known Allergies Allergy Verified 06/19/22 09:55 [No Known Allergies*] Plan I have reviewed the history and physical and performed a pertinent physical examination on my patient. No changes have occurred unless specified. Time Spent With Patient Time: Total time managing care of this patient today ____ minutes.
--- NOTE | 2022-06-26 08:03 | W.PM.OPN ---
Operative Note Operative Note Date of Service: 06/26/22 Narrative: Preop diagnosis: 1. Right Carpal tunnel syndrome Postop diagnosis: same Procedure: 1. right Carpal tunnel release Surgeon: Ayesha Mendoza MD Anesthesia: local block using 1% lidocaine with epinephrine Findings: Thickened transverse carpal ligament. EBL: Less than 5 mL Specimens: None Complications: None Disposition: Brought to recovery room in stable condition Plan: Follow-up for 10-14 days for wound check and suture removal Indications: The patient is 71 years old, with right carpal tunnel syndrome that has been unresponsive to nonoperative management. The risks and benefits of operative treatment including but not limited to risk of damage to blood vessels, nerves, tendons, infection, persistent pain, persistent symptoms, or possible need for additional surgery were discussed with the patient and the patient wishes to proceed with surgery. Procedure: Once consent was obtained a local block was performed using a combination of 1% lidocaine with epinephrine. The patient was then brought back to the operating suite and placed on the operative table in supine position. A tourniquet was applied to the proximal aspect of the right upper extremity and the limb was prepped and draped in a standard surgical fashion. Once assured that we had a good block, a 2.0 cm longitudinal incision was made centered over the carpal tunnel. The incision was made through the skin to the subcutaneous tissues using a #15 blade. Dissection was made down to the level of the transverse carpal ligament with care being taken to protect the palmar cutaneous nerve. Once the transverse carpal ligament was clearly visualized, a longitudinal incision was made in the transverse carpal ligament 1st using a #15 blade, then using tenotomy scissors under direct visualization. Care was taken to look for and protect the motor branch of the median nerve when seen in this area. Once satisfied with our carpal tunnel release the wound was copiously irrigated with normal saline and hemostasis was obtained with a brief period of local pressure. The skin edges were reapproximated with some 5.0 nylon suture material and a sterile dressing was applied. The patient appears to have tolerated the procedure well and with no complications. All digits were well vascularized at the conclusion of the case.
[2022-06-26 08:35] VITALS: BP 162/95; PULSE 74; RESP 16; TEMP 36.8; O2SAT 98
== END 2022-06-26 08:52 | disposition home or self-care (01) ==
PROVIDERS: PCP Nurse Practitioner Family; Visit Provider Orthopaedic Surgery
PROC: (CPT 64721; principal; 2022-06-26 07:30)
DX: G56.01 Carpal tunnel syndrome, right upper limb (principal); R20.0 Anesthesia of skin; R20.2 Paresthesia of skin; I25.119 Atherosclerotic heart disease of native coronary artery with unspecified angina pectoris; I10 Essential (primary) hypertension; I48.19 Other persistent atrial fibrillation; E78.5 Hyperlipidemia, unspecified; G47.30 Sleep apnea, unspecified; Z87.891 Personal history of nicotine dependence; Z98.890 Other specified postprocedural states; Z51.81 Encounter for therapeutic drug level monitoring; Z79.01 Long term (current) use of anticoagulants
CPT/HCPCS: 64721; 85610; 99211; J0171; J2795

== ENCOUNTER → 2022-07-09 09:25 | Outpatient (BNVA) | payer MEDICARE, SELFPAY | PROVIDERS: PCP Nurse Practitioner Family; Visit Provider Orthopaedic Surgery | DX: Z13.89 Encounter for screening for other disorder (principal) ==

== ENCOUNTER → 2022-07-18 08:17 | Outpatient (BNVA) | payer MEDICARE, SELFPAY | PROVIDERS: PCP Nurse Practitioner Family; Visit Provider Internal Medicine | DX: I48.91 Unspecified atrial fibrillation (principal); Z79.01 Long term (current) use of anticoagulants; Z51.81 Encounter for therapeutic drug level monitoring | CPT/HCPCS: 85610; 99211 ==

== ENCOUNTER → 2022-08-08 08:01 | Outpatient (BNVA) | payer MEDICARE, SELFPAY | PROVIDERS: PCP Nurse Practitioner Family; Visit Provider Internal Medicine | DX: I48.91 Unspecified atrial fibrillation (principal); Z79.01 Long term (current) use of anticoagulants; Z51.81 Encounter for therapeutic drug level monitoring | CPT/HCPCS: 85610; 99211 ==

== ENCOUNTER → 2022-08-29 08:13 | Outpatient (BNVA) | payer MEDICARE, SELFPAY | PROVIDERS: PCP Nurse Practitioner Family; Visit Provider Internal Medicine | DX: I48.91 Unspecified atrial fibrillation (principal); Z79.01 Long term (current) use of anticoagulants; Z51.81 Encounter for therapeutic drug level monitoring | CPT/HCPCS: 85610; 99211 ==

== ENCOUNTER → 2022-09-19 08:05 | Outpatient (BNVA) | payer MEDICARE, SELFPAY | PROVIDERS: PCP Nurse Practitioner Family; Visit Provider Internal Medicine | DX: I48.91 Unspecified atrial fibrillation (principal); Z79.01 Long term (current) use of anticoagulants; Z51.81 Encounter for therapeutic drug level monitoring | CPT/HCPCS: 85610; 99211 ==

== ENCOUNTER → 2022-10-10 07:53 | Outpatient (BNVA) | payer MEDICARE, SELFPAY | PROVIDERS: PCP Nurse Practitioner Family; Visit Provider Internal Medicine | DX: I48.91 Unspecified atrial fibrillation (principal); Z79.01 Long term (current) use of anticoagulants; Z51.81 Encounter for therapeutic drug level monitoring | CPT/HCPCS: 85610; 99211 ==

== ENCOUNTER → 2022-10-31 07:57 | Outpatient (BNVA) | payer MEDICARE, SELFPAY | PROVIDERS: PCP Nurse Practitioner Family; Visit Provider Internal Medicine | DX: I48.91 Unspecified atrial fibrillation (principal); Z79.01 Long term (current) use of anticoagulants; Z51.81 Encounter for therapeutic drug level monitoring | CPT/HCPCS: 85610; 99211 ==

== ENCOUNTER → 2022-11-06 13:05 | Outpatient (BNVA) | payer MEDICARE, SELFPAY | PROVIDERS: PCP Nurse Practitioner Family; Referring Provider Nurse Practitioner Family; Visit Provider Nurse Practitioner Family | DX: I35.0 Nonrheumatic aortic (valve) stenosis (principal); I48.19 Other persistent atrial fibrillation; R68.89 Other general symptoms and signs; E66.01 Morbid (severe) obesity due to excess calories; Z68.41 Body mass index [BMI] 40.0-44.9, adult | CPT/HCPCS: 93005; 99212 ==

== ENCOUNTER → 2022-11-19 07:47 | Outpatient (REF) | payer MEDICARE, SELFPAY ==
--- NOTE | 2022-11-19 07:54 | CA_ITS ---
Transthoracic Echocardiogram Patient (Last, First, Middle): Andre Tabor, Gender: Male Date of : 1950 Age: 72 Procedure Date: 11/19/2022 Procedure Type: Transthoracic Echocardiogram Location: OP Height: 182.88 cm Weight: 140.62 kg BSA: 2.57 m2 Heart Rate: bpm BP: 128 / 80 mmHg Ticketing Agent: MEGHANN Referring MD: Haylee Mcneal CORRECTION WARDEN-Radha Symptoms: I35.0 - Nonrheumatic aortic (valve) stenosis Study Quality: Adequate ECG Rhythm: Atrial Fibrillation Conclusions: - The left ventricular systolic function is normal. The visually estimated ejection fraction is between 60-65%. - There is moderate to severe aortic valve stenosis. Findings Left Ventricle Normal left ventricular cavity size. There is moderately increased left ventricular wall thickness. The left ventricular systolic function is normal. The visually estimated ejection fraction is between 60-65%. There is no evidence of regional wall motion abnormalities. Diastolic function is indeterminate on the basis of available data. Right Ventricle Normal right ventricular cavity size and systolic function. Atria The left atrium is moderately dilated. The right atrium is normal in size. Aortic Valve There is severe calcification of the aortic valve. There is moderate to severe aortic valve stenosis. The peak aortic velocity is 3.27 m/s with a calculated peak gradient of 43 mmHg. The mean gradient is 23 mmHg. The aortic valve area is 1.03 cm2. There is trace (trivial) aortic valve regurgitation. Dimensionless index 0.27. Stroke volume index 29 mL/m2. Mitral Valve The mitral valve appears normal. There is no mitral valve regurgitation. There is no mitral valve stenosis. Pulmonic Valve The pulmonic valve is likely normal. Tricuspid Valve Normal tricuspid valve structure. There is mild tricuspid valve regurgitation. There is no evidence of pulmonary hypertension. Great Vessels The asc aorta is normal in size. Venous The inferior vena cava is mildly dilated and collapses greater than 50% with inspiration. Pericardium/Pleural There is no evidence of pericardial effusion. Prior Study Comparison No significant change compared to prior study dated: 05/01/2022. Measurements 2D Linear Measurements IVSd: 1.36 0.6-0.9/0.6-1.0 cm LVIDd: 4.34 3.9-5.3/4.2-5.9 cm LVIDd Index: 1.69 2.4-3.2/2.2-3.1 cm/m2 LVIDs: 2.71 2.0-3.6 cm LVPWd: 1.46 0.7-1.1 cm Ao Root: 3.60 2.1-3.5 cm LA Diam: 4.30 2.7-3.8/3.0-4.0 cm LAIDs Index: 1.67 1.5-2.3 cm/m2 LV Mass: 296.73 67-162/88-224 g LV Mass Index: 115.46 43-95/49-115 g/m2 LVOT Diam: 2.10 3.0+(-)1.3 cm 2D Systolic Function EF 4C: 65.20 >55% EF 2C: 61.50 >55% EF BiP: 63.90 >55% Mitral Valve MV Pk E: 1.17 MV Decel Time: 189.00 E'Lateral: 11.90 E'Medial: 7.83 E/E' Med: 14.90 E/E' Lat: 9.80 PHT: 55.00 MVA PHT: 4.00 Decel [place]: 6.20 Aortic Valve AoV Pk Skip: 3.27 AoV Mn Skip: 2.22 AoV VTI: 0.73 AoV Pk Grad: 43.00 Aov Mn Grad: 23.00 JANIE Cont.VTI: 1.03 LVOT LVOT Pk Skip: 0.87 LVOT Mn Skip: 0.59 LVOT VTI: 0.22 LVOT Pk Grad: 3.00 LVOT Mn Grad: 2.00 LVOT Diam: 2.10 LVOT Area: 3.46 Diastolic Function MV Pk E: 1.17 E'Medial: 7.83 E/E' Med: 14.90 E' Laterial: 11.90 E/E' Lat: 9.80 Right Ventricle TAPSE (mm): 24.00 TVS' Skip: 12.00 Tricuspid Valve TR Pk Skip: 2.48 TR Pk Grad: 25.00 RA Press: 8.00 RVSP: 33.00 Great Vessels Aorta Ao Root-2D: 3.60 2.0-3.7 cm Ao Asc: 3.60 2.1-3.4 cm Pulmonary Valve PV Pk Skip: 0.94 Peak PV Grad: 4.00 Updated in Other Vendor System with Status of Final Nikita Hancock MD electronically signed on 11/21/2022 12:16:28 PM with status of Final
== END ==
LOC: HO.CARD 07:47
PROVIDERS: PCP Nurse Practitioner Family; Visit Provider Nurse Practitioner Family
DX: I35.0 Nonrheumatic aortic (valve) stenosis (principal)
CPT/HCPCS: 93306

== ENCOUNTER → 2022-11-28 08:04 | Outpatient (BNVA) | payer MEDICARE, SELFPAY | PROVIDERS: PCP Nurse Practitioner Family; Visit Provider Internal Medicine | DX: I48.91 Unspecified atrial fibrillation (principal); Z79.01 Long term (current) use of anticoagulants; Z51.81 Encounter for therapeutic drug level monitoring | CPT/HCPCS: 85610; 99211 ==

== ENCOUNTER → 2022-12-26 08:00 | Outpatient (BNVA) | payer MEDICARE, SELFPAY | PROVIDERS: PCP Nurse Practitioner Family; Visit Provider Internal Medicine | DX: I48.91 Unspecified atrial fibrillation (principal); Z79.01 Long term (current) use of anticoagulants; Z51.81 Encounter for therapeutic drug level monitoring | CPT/HCPCS: 85610; 99211 ==

== ENCOUNTER 2023-01-22 05:41 | Emergency (ER) | payer MEDICARE, SELFPAY ==
--- NOTE | ~2023-01-22 | XR_ITS ---
EXAMINATION: XR CHEST CLINICAL INFORMATION: Shortness of breath COMPARISON: 12/04/2021 TECHNIQUE: Frontal view of the chest was obtained. FINDINGS: The lungs are clear with no focal consolidation. No evidence of pneumothorax, pulmonary edema, or pleural effusions. Cardiac silhouette is enlarged. Calcification is present at the aortic arch. No acute osseous findings are seen. XR/XR chest 1V IMPRESSION: No acute pulmonary findings. Enlarged cardiac silhouette.
[2023-01-22 05:42] VITALS: BP 184/111; PULSE 72; RESP 18; TEMP 36.4; O2SAT 99; BMI 44.3
--- NOTE | 2023-01-22 05:51 | ECG_ITS ---
Test Reason : DYSPNEA Blood Pressure : / mmHG Vent. Rate : 063 BPM Atrial Rate : 000 BPM P-R Int : 000 ms QRS Dur : 082 ms QT Int : 380 ms P-R-T Axes : 000 011 005 degrees QTc Int : 388 ms Atrial fibrillation Low voltage QRS Septal infarct (cited on or before 22-JAN-2023) Abnormal ECG When compared with ECG of 24-APR-2021 07:35, No significant change was found Referred By: Eliza Venegas Electronically Signed By:ADRI IRAHETA MD
--- NOTE | 2023-01-22 05:51 | ED.SOB ---
HPI - SOB/Dyspnea General Chief Complaint: Dyspnea Stated Complaint: SoB, swollen legs Time Seen by Provider: 01/22/23 05:51 Source: patient Mode of arrival: ambulatory History of Present Illness HPI Narrative: 72-year-old male with known atrial fibrillation and on Coumadin and states that 3 weeks ago his INR was 2.6 comes in for evaluation of worsening shortness of breath with orthopnea and increasing bilateral lower extremity swelling over the past week and a half. He denies any associated fever, chills, history of asthma/COPD and denies any GI or symptoms. Related Data Home Medications Medication Instructions Recorded Confirmed acetaminophen 500 mg capsule 500 mg PO Q6H PRN 04/16/22 12/29/22 Previous Rx's Medication Instructions Recorded betamethasone dipropionate 0.05 % 1 appl topical DAILY PRN skin 09/12/21 topical cream irritation 14 days #45 grams hydrocortisone 2.5 % topical cream 1 appl topical BID PRN skin 11/26/21 irritation #20 grams oxycodone 5 mg tablet 5 mg PO Q12H PRN pain 30 days #60 02/14/22 tabs metoprolol tartrate 50 mg tablet 50 mg PO BID 90 days #180 tabs 05/12/22 lidocaine 5 % topical patch 3 patch topical DAILY #30 ea 11/20/22 warfarin 2.5 mg tablet 1.25 mg PO DAILY #90 tabs 12/15/22 atorvastatin 10 mg tablet 10 mg PO BEDTIME 90 days #90 tabs 12/16/22 sulfamethoxazole 800 1 tab PO BID 10 days #20 tabs 12/29/22 mg-trimethoprim 160 mg tablet (Bactrim DS) furosemide 20 mg tablet (Lasix) 20 mg PO Q OTHER DAY #14 tabs 01/22/23 Allergies Allergy/AdvReac Type Severity Reaction Status Date / Time No Known Allergies Allergy Verified 12/29/22 08:22 [No Known Allergies*] Review of Systems Review of Systems: Pertinent positives and negatives as stated in HPI PMFSH Past Medical History Source: nursing notes reviewed Medical History Abscess of knee, left Anxiety 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 Dyslipidemia HTN (hypertension) Moderate aortic stenosis Persistent atrial fibrillation Reactive depression Sleep apnea Surgical History History of evacuation of hematoma (~05/2015) History of revision of total replacement of left knee joint (~04/2016) History of total left knee replacement (~11/2015) History of total right knee replacement (TKR) (~04/2015) Status post ablation of incompetent vein using laser (~01/2022) Family History Family History Other Brain cancer Social History Social History Household Members: Family Housing: House Do you presently have visiting nurse or other home services: No Alcohol intake: current Alcohol intake frequency: 0-2 drinks per day Patient Tobacco Use Status: Former Tobacco user Quit Date: 2016 Smoked: 45+/- Smoked in Last 30 Days: No e-Cigarette/Vaping Use: Never Used Second Hand Smoke Exposure: No Use of substances other than those prescribed or required for medical reasons: No Substance Use Type: Marijuana Advance Directives: No Advance Directives Information Provided: Yes service: No Current occupational status: previously employed and retired 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 Current occupational exposures/hazards: No Cognitive needs: No Hearing needs: No Vision needs: Yes Physical Exam Vital Signs: Vital Signs: Last Vital Signs Temp 97.5 F 01/22/23 05:42 Pulse 72 01/22/23 05:42 Resp 18 01/22/23 05:42 BP 184/111 H 01/22/23 05:42 Pulse Ox 99 01/22/23 05:42 O2 Del Method Room Air 01/22/23 05:42 BMI result Body Mass Index 44.3 VITAL SIGNS: Reviewed. GENERAL: Elevated BMI, Well developed, well nourished, in no acute distress. HEAD: Normocephalic/atraumatic EYES: PERRLA, EOMI EARS: Ext canals without abnormality NOSE: Nares patent bilateral OROPHARYNX: no oral lesions noted, posterior pharynx clear NECK: Supple, no adenopathy LUNGS: Bibasilar rales without tachypnea. SpO2<99> CARDIOVASCULAR: Regular rate and rhythm without noted murmurs, no JVD but 2+ bilateral lower pitting edema ABDOMEN: Soft, non-tender, non-distended with bowel sounds. MUSCULOSKELETAL: No tenderness, deformities, or effusions noted on gross inspection. EXTREMITIES: No cyanosis, clubbing or edema. SKIN: Inspection of the skin reveals no rashes NEUROLOGIC: Alert and oriented x 4. Strength and sensation to light touch were grossly intact x 4. Medical Decision Making Medical Decision Making [facility] Narrative: 72-year-old male with history and clinical presentation, DDX: CHF exacerbation, PNA, RVR I reviewed all investigations and hematologic indices are chronically stable without leukocytosis or left shift. INR is mildly elevated at 3.7 without evidence of acute bleeding. Chemistry indices to include BNP demonstrate undetectable troponin but BNP a in conjunction with clinical exam consistent with CHF exacerbation despite chest x-ray findings. Patient is not hypoxic. Signed out to DR Walsh to reassess after 2hrs for improvement in SOB after the lasix. Differential Diagnosis Differential Diagnoses: The differential diagnosis associated with the presentation includes Please see the discussion above Admission/Observation Consideration of admission/observation: Escalation of care including admission/observation considered Lab Data [facility] Lab Attestation statement: I reviewed the patient's lab results. Please see the discussion above 01/22/23 05:58 01/22/23 05:58 Labs: Lab Results 01/22/23 01/22/23 01/22/23 Range/Units 05:58 05:58 05:58 WBC 5.6 (4.8-10.8) X10*3/uL RBC 4.42 L (4.60-5.80) X10*6/uL Hgb 13.2 L (14.0-18.0) g/dl Hct 40.1 L (42.0-52.0) % MCV 90.7 (80.0-98.0) fL MCH 29.9 (27.0-33.0) pg MCHC 32.9 (31.0-36.0) g/dl RDW 14.2 (11.0-16.0) % Plt Count 164 D (160-400) X10*3/uL MPV 9.5 (9.4-12.4) fL Immature Gran % (Auto) 0.4 (0.0-0.4) % Neut % (Auto) 61.9 (45-73) % Lymph % (Auto) 23.8 (20-40) % [place] % (Auto) 9.9 (2-11) % Eos % (Auto) 2.9 (0-4) % Baso % (Auto) 1.1 (0-2) % Lymph # (Auto) 1.3 (1.2-4.9) X10*3/uL [place] # (Auto) 0.6 (0.1-1.2) X10*3/uL Eos # (Auto) 0.2 (0.0-0.4) X10*3/uL Baso # (Auto) 0.1 (0.0-0.2) X10*3/uL Abs Immat Gran (auto) 0.02 (0.00-0.03) X10*3/uL Absolute Neuts (auto) 3.5 (2.0-8.3) x10*3/uL Absolute Nucleated RBC 0.000 (0.0-0.012) X10*3/uL Nucleated RBC % (auto) 0.0 (0.0-0.2) /100WBC PT 45.4 H (10.0-13.1) SEC INR 3.7 H D (0.9-1.1) Sodium 141 (135-145) mmol/L Potassium 4.6 (3.3-5.1) mmol/L Chloride 109 H (96-108) mmol/L Carbon Dioxide 24 (22-29) mmol/L Anion Gap 13 (12-20) BUN 19 H (9-16) mg/dL Creatinine 0.99 (0.5-1.4) mg/dL Estim Creat Clear Calc 102.4 Estimated GFR > 60 Random Glucose 100 (60-115) mg/dL Lactic Acid (0.5-2.0) mmol/L Calcium 9.4 D (8.4-10.2) mg/dL Total Bilirubin 0.7 (0.0-1.0) mg/dL AST 14 (5-37) U/L ALT 9 (0-40) U/L Alkaline Phosphatase 81 (39-117) U/L Troponin I High Sens (<3.5-35.0) ng/L B-Natriuretic Peptide (<100) pg/mL Total Protein 6.9 (6.5-8.0) g/dL Albumin 3.7 (3.5-5.0) g/dL 01/22/23 01/22/23 01/22/23 Range/Units 05:58 05:58 05:58 WBC (4.8-10.8) X10*3/uL RBC (4.60-5.80) X10*6/uL Hgb (14.0-18.0) g/dl Hct (42.0-52.0) % MCV (80.0-98.0) fL MCH (27.0-33.0) pg MCHC (31.0-36.0) g/dl RDW (11.0-16.0) % Plt Count (160-400) X10*3/uL MPV (9.4-12.4) fL Immature Gran % (Auto) (0.0-0.4) % Neut % (Auto) (45-73) % Lymph % (Auto) (20-40) % [place] % (Auto) (2-11) % Eos % (Auto) (0-4) % Baso % (Auto) (0-2) % Lymph # (Auto) (1.2-4.9) X10*3/uL [place] # (Auto) (0.1-1.2) X10*3/uL Eos # (Auto) (0.0-0.4) X10*3/uL Baso # (Auto) (0.0-0.2) X10*3/uL Abs Immat Gran (auto) (0.00-0.03) X10*3/uL Absolute Neuts (auto) (2.0-8.3) x10*3/uL Absolute Nucleated RBC (0.0-0.012) X10*3/uL Nucleated RBC % (auto) (0.0-0.2) /100WBC PT (10.0-13.1) SEC INR (0.9-1.1) Sodium (135-145) mmol/L Potassium (3.3-5.1) mmol/L Chloride (96-108) mmol/L Carbon Dioxide (22-29) mmol/L Anion Gap (12-20) BUN (9-16) mg/dL Creatinine (0.5-1.4) mg/dL Estim Creat Clear Calc Estimated GFR Random Glucose (60-115) mg/dL Lactic Acid 1.4 (0.5-2.0) mmol/L Calcium (8.4-10.2) mg/dL Total Bilirubin (0.0-1.0) mg/dL AST (5-37) U/L ALT (0-40) U/L Alkaline Phosphatase (39-117) U/L Troponin I High Sens < 2.7 (<3.5-35.0) ng/L B-Natriuretic Peptide 227 H (<100) pg/mL Total Protein (6.5-8.0) g/dL Albumin (3.5-5.0) g/dL Independent Interpretation I performed an independent interpretation of an: EKG Interpretation: Atrial fibrillation, HR-63, no STEMI, QRS/QTC is otherwise within normal limits. Radiology Impression Radiologist Impression: No pneumonia, otherwise my interpretation is in agreement with radiology's impression. External Record Review External record reviewed: Outpatient record and Prior outpatient labs Chronic Conditions Patient?s care impacted by: Other Atrial fibrillation Discharge Plan Discharge Clinical Impression: CHF exacerbation, Chronic anticoagulation, Supratherapeutic INR Patient Disposition: Still a Patient Instructions: Heart Failure (ED), Low-Sodium Diet (ED), Elevated INR (ED) Additional Instructions: 1. Resume all home medications as prescribed. 2. Call the office of your primary care provider today as well as the office of your jr. systems administrator today to set up appointments for re-evaluation and further outpatient management. 3. You have been started on a water pill, this is called Lasix, you start taking it daily. Return to the ER for any worsening symptoms. Prescriptions: New furosemide [Lasix] 20 mg tablet 20 mg PO Q OTHER DAY Qty: 14 0RF No Action betamethasone dipropionate 0.05 % cream 1 appl topical DAILY PRN (Reason: skin irritation) 14 Days Qty: 45 0RF hydrocortisone 2.5 % cream 1 appl topical BID PRN (Reason: skin irritation) Qty: 20 0RF metoprolol tartrate 50 mg tablet 50 mg PO BID 90 Days Qty: 180 3RF warfarin 2.5 mg tablet 1.25 mg PO DAILY Qty: 90 1RF Protocol: Dose Management Condition: Thursday (Week One) Dose/Route: 1.25 mg Instruction: 0.5 x 2.5 mg tablets Condition: Thursday Dose/Route: 1.25 mg Instruction: 0.5 x 2.5 mg tablets Condition: Thursday Dose/Route: 1.25 mg Instruction: 0.5 x 2.5 mg tablets Condition: Thursday Dose/Route: 1.25 mg Instruction: 0.5 x 2.5 mg tablets Condition: Dose/Route: 1.25 mg Instruction: 0.5 x 2.5 mg tablets Condition: Thursday Dose/Route: 0 mg Instruction: 0 tablets Condition: Thursday Dose/Route: 1.25 mg Instruction: 0.5 x 2.5 mg tablets Condition: Thursday (Week Two) Dose/Route: 1.25 mg Instruction: 0.5 x 2.5 mg tablets Condition: Thursday Dose/Route: 1.25 mg Instruction: 0.5 x 2.5 mg tablets Condition: Thursday Dose/Route: 1.25 mg Instruction: 0.5 x 2.5 mg tablets Condition: Thursday Dose/Route: 1.25 mg Instruction: 0.5 x 2.5 mg tablets Condition: Dose/Route: 1.25 mg Instruction: 0.5 x 2.5 mg tablets Condition: Thursday Dose/Route: 0 mg Instruction: 0 tablets Condition: Thursday Dose/Route: 1.25 mg Instruction: 0.5 x 2.5 mg tablets Protocol Text: Adjustment Start Date: Thursday12/26/22 INR Value: 2.6 INR Date: 12/26/22 Recheck Date: 01/23/23 Additional Instructions: INR in range continue same dosing balance greens and reds in diet, be consistent Rx Instructions: Adjust dosing as needed per Anticoagulation Clinic instructions. atorvastatin 10 mg tablet 10 mg PO BEDTIME 90 Days Qty: 90 1RF lidocaine 5 % adhesive patch,medicated 3 patch topical DAILY Qty: 30 2RF Rx Instructions: leave on most painful area for up to 12 hrs sulfamethoxazole-trimethoprim [Bactrim DS] 800-160 mg tablet 1 tab PO BID 10 Days Qty: 20 0RF acetaminophen 500 mg capsule 500 mg PO Q6H PRN oxycodone 5 mg tablet 5 mg PO Q12H PRN (Reason: pain) 30 Days Qty: 60 0RF
[2023-01-22 06:18] LABS: MANUAL DIFF FLAG NO
[2023-01-22 06:19] LABS: Basophils Absolute Auto 0.1 X10*3/uL (0.0-0.2); Basophils Percent Auto 1.1 % (0-2); Eosinophils Absolute Auto 0.2 X10*3/uL (0.0-0.4); Eosinophils Percent Auto 2.9 % (0-4); Hematocrit 40.1 % (42.0-52.0); Hemoglobin 13.2 g/dl (14.0-18.0); Imm Gran Abs Auto 0.02 X10*3/uL (0.00-0.03); Imm Gran Pct Auto 0.4 % (0.0-0.4); Lymphocytes Absolute Auto 1.3 X10*3/uL (1.2-4.9); Lymphocytes Percent Auto 23.8 % (20-40); Mean Corpuscular HGB Conc 32.9 g/dl (31.0-36.0); Mean Corpuscular Hemoglobin 29.9 pg (27.0-33.0); Mean Corpuscular Volume 90.7 fL (80.0-98.0); Mean Platelet Volume 9.5 fL (9.4-12.4); Monocytes Absolute Auto 0.6 X10*3/uL (0.1-1.2); Monocytes Percent Auto 9.9 % (2-11); Neutrophils Absolute Auto 3.5 x10*3/uL (2.0-8.3); Neutrophils Percent Auto 61.9 % (45-73); Platelet Count 164 X10*3/uL (160-400); Red Blood Count 4.42 X10*6/uL (4.60-5.80); Red Cell Distribution Width 14.2 % (11.0-16.0); White Blood Count 5.6 X10*3/uL (4.8-10.8)
[2023-01-22 06:27] LABS: INTERNATIONAL NORM RATIO 3.7 (0.9-1.1); Prothrombin Time 45.4 SEC (10.0-13.1)
[2023-01-22 06:30] LABS: Lactic Acid 1.4 mmol/L (0.5-2.0)
--- NOTE | 2023-01-22 06:40 | PC.NURSE ---
pt arrived via triage , c/o bilateral lower ext and sob x1 week, rales present throughout lung gloria, bilateral LE tight and 3 +edema
[2023-01-22 06:42] LABS: B Type Natriuretic Peptide 227 pg/mL (<100); Troponin-I High Sensitivity < 2.7 ng/L (<3.5-35.0)
[2023-01-22 07:03] LABS: Alanine Aminotransferase 9 U/L (0-40); Albumin Level 3.7 g/dL (3.5-5.0); Alkaline Phosphatase 81 U/L (39-117); Anion Gap 13 (12-20); Aspartate Amino Transferase 14 U/L (5-37); Bilirubin Total 0.7 mg/dL (0.0-1.0); Blood Urea Nitrogen 19 mg/dL (9-16); Calcium 9.4 mg/dL (8.4-10.2); Carbon Dioxide 24 mmol/L (22-29); Chloride 109 mmol/L (96-108); Creatinine Clr Calc Pharmacy 102.4; Estimated Glomerular Filt Rate > 60; Glucose Random 100 mg/dL (60-115); Potassium 4.6 mmol/L (3.3-5.1); Sodium 141 mmol/L (135-145); Total Protein 6.9 g/dL (6.5-8.0)
[2023-01-22 07:20] VITALS: BP 156/105; PULSE 60; RESP 18; O2SAT 99
[2023-01-22] MEDS: Furosemide 100 MG/10 ML VIAL 60 MG IVPUSH (07:21)
[2023-01-22 07:42] VITALS: BP 164/100; PULSE 64; RESP 21; TEMP 37; O2SAT 93
== END 2023-01-22 09:19 | disposition home or self-care (01) ==
PROVIDERS: Student in an Organized Health Care Education/Training Program; Emergency Provider Emergency Medicine Emergency Medical Services
DX: I50.9 Heart failure, unspecified (principal); R06.02 Shortness of breath; R60.0 Localized edema; I48.91 Unspecified atrial fibrillation; Z79.01 Long term (current) use of anticoagulants; Z79.899 Other long term (current) drug therapy; Z87.891 Personal history of nicotine dependence
CPT/HCPCS: 36415; 71045; 80053; 83605; 83880; 84484; 85025; 85610; 87040; 93005; 96374; 99284; 99285; J1940

== ENCOUNTER → 2023-01-22 05:51 | Outpatient (BNV) | payer MEDICARE, SELFPAY | PROVIDERS: Emergency Provider Emergency Medicine Emergency Medical Services; Visit Provider Internal Medicine Cardiovascular Disease | DX: I48.91 Unspecified atrial fibrillation (principal) | CPT/HCPCS: 93010 ==

== ENCOUNTER 2023-01-23 08:05 | Outpatient (AMB) | payer MEDICARE, SELFPAY ==
[2023-01-23 08:18] LABS: Prothrombin Time Whole Bld POC 28.8 sec (11.1-13.5); ~PT, ~INR - Anti Coag Clinic 2.4 (0.9-1.1)
--- NOTE | 2023-01-23 08:22 | MHC.OFFVISCO ---
Intake Intake Visit Reasons: Anticoagulation Allergies No Known Allergies [No Known Allergies*] Allergy (Verified 01/23/23 08:08) Medication List - Last Reconciled 01/23/23 by Sarah Barreto RN acetaminophen 500 mg PO Q6H PRN atorvastatin 10 mg PO BEDTIME 90 days betamethasone dipropionate 0.05% 1 appl topical DAILY PRN 14 days furosemide (Lasix) 20 mg PO Q OTHER DAY hydrocortisone 2.5% 1 appl topical BID PRN lidocaine 5% 3 patches topical DAILY metoprolol tartrate 50 mg PO BID 90 days oxycodone 5 mg PO Q12H PRN 30 days warfarin 1.25 mg See Protocol PO DAILY Nursing Note INR: 2.4 in therapeutic range PT WAS IN ER YESTERDAY FOR LEG PAIN AND EDEMA, HE WAS TREATED WITH DIURETICS, HIS INR WAS 3.7 AND WAS NOT GIVEN ANY WARFARIN INSTRUCTIONS FROM THE ER , HE WAS TREATED WITH DIURETIC HE STATED HE HAD A POSITIVE [place] END DECEMBER 2025 . HE WAS RX SULFA 12/29/22 AFTER ACS VISIT X 10DAYS - HE DID NOT CALL TO REPORT MED, IT MAY HAVE RAISED HIS INR PRIOR TO HIS HAVIG A + COLOGUARD, HE ALSO TAKES IBUPROFEN FOR PAIN IN HIS KNEE, BLEEDING RISK EXPLAINED AND STRONGLY ADVISED TO TAKE WITH FOOD IF HE MUST TAKE IT - HE VERB UNDERSTANDING, ENC TO TALK WITH MD- HE HAS GI CONSULT COMING SOON. NO BLACK TARRY STOOLS OR BLOOD IN STOOLS Medications and supplements reviewed No changes in health, diet, medications, or supplements, Denies any signs and symptoms of bleeding or bruising or clotting. Bleeding, bruising, clotting discussed Nutritional guidance given -EAT A MIX OF FRUITS AND VEGETABLES Dose: 1.25MG X 6 DAYS/ WEEK 0 X 1 DAY / NIKKI F/U INR: 4 WEEKS BUT TO CALL WITH ANY MED CHANGES OR IF HAS TO GO FOR A PROCEDURE. Patient verbalizes understanding of instructions given Anti-Coag Initial Assessment Social Hx Patient Tobacco Use Status: Former Tobacco user Quit Date: 2016 alcohol intake: current Alcohol intake frequency: 0-2 drinks per day Coding Level of Care Code Est Patient Level 1 Diagnoses Current use of anticoagulant therapy Z79.01 Results AMB INR Fingerstick AMB INR Fingerstick 2.4 Last Edit by Sarah Barreto RN on 01/23/23 08:19 manual entry interface failure Assessment & Plan Assessment & Plan (1) Current use of anticoagulant therapy: Code(s): Z79.01 - penitentiary (current) use of anticoagulants Category: Medical
== END 2023-01-23 10:43 | disposition home or self-care (01) ==
LOC: HO.ACS 08:05
PROVIDERS: Visit Provider Internal Medicine
DX: Z79.01 Long term (current) use of anticoagulants (principal)

== ENCOUNTER → 2023-01-23 08:05 | Outpatient (BNVA) | payer MEDICARE, SELFPAY | PROVIDERS: Visit Provider Internal Medicine | DX: I48.91 Unspecified atrial fibrillation (principal); Z79.01 Long term (current) use of anticoagulants; Z51.81 Encounter for therapeutic drug level monitoring | CPT/HCPCS: 85610; 99211 ==

== ENCOUNTER 2023-01-27 09:55 | Outpatient (AMB) | payer MEDICARE, SELFPAY ==
[2023-01-27 10:18] VITALS: BP 184/96; PULSE 86; BMI 50.0
--- NOTE | 2023-01-27 10:18 | A.OFFVIS_ITS ---
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 male with past medical history of morbid obesity, severe aortic stenosis, lymphedema total knee replacement of the left knee, dyslipidemia, hypertension, AFib is here today for pre colonoscopy screening.? Patient is accompanied by his sister. Patient was sent to us by his PCP.? This is his first colonoscopy screening.? Patient had positive Cologuard test in December. Family history of of colorectal cancer in paternal grandmother. Patient denies any gastrointestinal symptoms in the past or at present.? Family history of colorectal cancer in paternal grandmother Denies history of difficulty with sedation or anesthesia in the past.? History of sleep apnea not using CPAP. ? Denies any history of renal, pulmonary, or hepatic disease.?? History of AFib on warfarin. History of severe aortic stenosis. Patient is followed by Cardiology. No history of infectious? diseases like hepatitis A, B, C, HIV or tuberculosis.? [facility] History Abscess of knee, left Anxiety Atherosclerosis of [place] coronary artery of [place] heart with angina pectoris Dyslipidemia HTN (hypertension) Moderate aortic stenosis Persistent atrial fibrillation Reactive depression Sleep apnea Surgical History History of evacuation of hematoma (~05/2015) History of revision of total replacement of left knee joint (~04/2016) History of total left knee replacement (~11/2015) History of total right knee replacement (TKR) (~04/2015) Status post ablation of incompetent vein using laser (~01/2022) Family History Other Brain cancer Social History Household Members: Family Housing: House Do you presently have visiting nurse or other home services: No Alcohol intake: current Alcohol intake frequency: 0-2 drinks per day Patient Tobacco Use Status: Former Tobacco user Quit Date: 2016 Years Smoked: 45+/- e-Cigarette/Vaping Use: Never Used Second Hand Smoke Exposure: No Substance Use Type: Marijuana service: No Current occupational status: previously employed and retired 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 Current occupational exposures/hazards: No Cognitive needs: No Hearing needs: No Vision needs: Yes Review of Systems Const Denies weight gain and Denies weight loss ENT Reports no additional complaints, Denies dysphagia and Denies odynophagia Card Reports no additional complaints Resp Reports no additional complaints GI Denies abdominal pain, Denies belching, Denies melena, Denies bloating, Denies change in bowel habits, Denies dysphagia, Denies excessive flatus, Denies dyspepsia, Denies heartburn, Denies diarrhea, Denies loose stools, Denies nausea, Denies odynophagia and Denies vomiting Reports no additional complaints Musc Reports abnormal gait Neuro Reports no additional complaints and Reports abnormal gait Psych Reports no additional complaints Endo Reports no additional complaints Physical Exam Vital Signs: Last Vital Signs Pulse 86 01/27/23 10:18 BP 184/96 H 01/27/23 10:18 BMI result Body Mass Index 50.0 Const Other: Ambulating with 2 canes with difficulties. History of bilateral knee replacements General: healthy appearing, no acute distress and well developed Nutritional Appearance: obese Orientation/consciousness: patient oriented x3 HEENT Head: Yes normal to inspection, Yes normocephalic and Yes atraumatic Face and sinus: Yes normal facial exam Mouth: Normal oral and palatal mucosa present Throat: Yes posterior oropharynx normal, Yes tonsils normal and Yes uvula midline Eyes General: appearance normal, both eyes and all related structures Neck Neck: Yes normal visual inspection, Yes full ROM and Yes trachea midline Thyroid: Thyroid normal Resp Effort & Inspection: normal respiratory effort, able to speak in complete sentences, no tracheal deviation and symmetric chest movement Auscultation: clear to auscultation bilaterally Cardio Rate: Other (Irregular) Heart sounds: Murmur heart sound present GI Inspection: Yes normal to inspection, No distended and Yes obesity Palpation (GI): Soft to palpation, not firm, nontender and No hepatosplenomegaly present Auscultation: normal bowel sounds General: Yes no CVA tenderness Back/Spine/Pelvis Back: no CVA tenderness Skin General skin exam: elasticity normal, turgor normal and dry skin Neuro General: patient oriented x3 Psych Appearance: grossly normal Mental Status: mental status grossly normal Speech and movement: Normal speech and movement present Assessment & Plan Assessment & Plan (1) Positive colorectal cancer screening using Cologuard test: Code(s): R19.5 - Other fecal abnormalities Plan: Positive Cologuard in December 2022 (2) Screen for colon cancer: Code(s): Z12.11 - Encounter for screening for malignant neoplasm of colon Plan: Patient denies any GI, cardiac or respiratory symptoms.? Denies any issues with anesthesia in the past.? No history infectious diseases in the past or present.? Patient is on warfarin daily. Family history of colorectal cancer in paternal grandmother? Patient denies melena, hematochezia, unintentional weight loss or ribbon like stools.? Patient has a history of AFib unable to cardiovert him due to mild setback with cellulitis bilateral lower extremities. Patient also has severe aortic stenosis and will need to be cleared from Cardiology. Will contact Dr. Daigle for risk stratification and holding warfarin before the procedure. Discussed at length the pre-procedure,? prep, diet & medications as well as what to expect prior, during and after the procedure.?? Stressed the importance of good bowel prep. ?Recommended the use of Vaseline or Calmoseptine OTC & baby wipes with bowel movements to promote comfort.? ?Patient verbalizes understanding and agrees to plan of care.? He was given the opportunity to ask questions and all questions answered.? We will see him after the procedure.? Patient was accompanied by his sister who will be helping patient prep for the procedure and bring him to the procedure Medications: New bisacodyl (Dulcolax (bisacodyl)) take 2 tabs at noon the day before your colonoscopy 10 mg (2 x 5 mg) PO ONCE 1 day 2 tabs 0RF Z12.11 - Encounter for screening for malignant neoplasm of colon polyethylene glycol 3350 (Miralax) As directed by gastroenterology department at [facility] 238 grams PO ONCE 238 grams 0RF Z12.11 - Encounter for screening for malignant neoplasm of colon Coding Level of Care Code New Pt Level 3 (35986) Diagnoses Positive colorectal cancer screening using Cologuard test R19.5 Screen for colon cancer Z12.11 Time Spent (min) 40 Comment 30 minutes spent with patient and additional 10 minutes spent reviewing his records
== END 2023-01-27 10:55 | disposition home or self-care (01) ==
PROVIDERS: PCP Nurse Practitioner Family; Visit Provider Nurse Practitioner Family
DX: R19.5 Other fecal abnormalities (principal)
CPT/HCPCS: 99204

== ENCOUNTER → 2023-01-27 09:55 | Outpatient (BNVA) | payer MEDICARE, SELFPAY | PROVIDERS: PCP Nurse Practitioner Family; Visit Provider Nurse Practitioner Family ==

== ENCOUNTER 2023-02-09 05:44 | Emergency (ER) | payer MEDICARE, SELFPAY ==
--- NOTE | 2023-02-09 | ECG_ITS ---
Test Reason : EDEMA Blood Pressure : / mmHG Vent. Rate : 065 BPM Atrial Rate : 000 BPM P-R Int : 000 ms QRS Dur : 088 ms QT Int : 384 ms P-R-T Axes : 000 007 000 degrees QTc Int : 399 ms Atrial fibrillation Low voltage QRS Cannot rule out Anterior infarct (cited on or before 22-JAN-2023) Abnormal ECG When compared with ECG of 22-JAN-2023 05:54, No significant change was found Referred By: Generic ED Physician Electronically Signed By:JAGDISH BRENNAN
[2023-02-09 05:51] VITALS: BP 127/89; PULSE 64; RESP 18; TEMP 36.7; O2SAT 98; BMI 42.2
[2023-02-09 06:26] LABS: Basophils Absolute Auto 0.1 X10*3/uL (0.0-0.2); Basophils Percent Auto 1.1 % (0-2); Eosinophils Absolute Auto 0.1 X10*3/uL (0.0-0.4); Eosinophils Percent Auto 2.6 % (0-4); Hematocrit 42.7 % (42.0-52.0); Hemoglobin 13.9 g/dl (14.0-18.0); Imm Gran Abs Auto 0.02 X10*3/uL (0.00-0.03); Imm Gran Pct Auto 0.4 % (0.0-0.4); Lymphocytes Absolute Auto 1.3 X10*3/uL (1.2-4.9); Lymphocytes Percent Auto 24.2 % (20-40); MANUAL DIFF FLAG NO; Mean Corpuscular HGB Conc 32.6 g/dl (31.0-36.0); Monocytes Absolute Auto 0.6 X10*3/uL (0.1-1.2); Monocytes Percent Auto 11.2 % (2-11); Neutrophils Absolute Auto 3.3 x10*3/uL (2.0-8.3); Neutrophils Percent Auto 60.5 % (45-73); Platelet Count 188 X10*3/uL (160-400); Red Blood Count 4.64 X10*6/uL (4.60-5.80); Red Cell Distribution Width 13.8 % (11.0-16.0); White Blood Count 5.5 X10*3/uL (4.8-10.8)
[2023-02-09 06:39] LABS: Alanine Aminotransferase 10 U/L (0-40); Albumin Level 3.6 g/dL (3.5-5.0); Alkaline Phosphatase 64 U/L (39-117); Anion Gap 16 (12-20); Aspartate Amino Transferase 13 U/L (5-37); Bilirubin Total 0.4 mg/dL (0.0-1.0); Blood Urea Nitrogen 17 mg/dL (9-16); Calcium 9.2 mg/dL (8.4-10.2); Carbon Dioxide 22 mmol/L (22-29); Chloride 107 mmol/L (96-108); Creatinine Clr Calc Pharmacy 83.6; Estimated Glomerular Filt Rate > 60; Glucose Random 82 mg/dL (60-115); Potassium 4.5 mmol/L (3.3-5.1); Sodium 140 mmol/L (135-145)
[2023-02-09 06:45] LABS: B Type Natriuretic Peptide 207 pg/mL (<100)
[2023-02-09 07:09] VITALS: BP 114/82; PULSE 67; TEMP 36.6; O2SAT 98
[2023-02-09] MEDS: Furosemide 40 MG/4 ML VIAL IVPUSH (07:53)
[2023-02-09 08:18] VITALS: RESP 16
--- NOTE | 2023-02-09 08:18 | ED.GENADULT ---
HPI - General Adult General Chief complaint: Extremity Problem Stated complaint: swollen legs still since last visit Time Seen by Provider: 02/09/23 07:00 Source: patient Mode of arrival: ambulatory Limitations: no limitations History of Present Illness HPI narrative: 72-year-old male with history of atrial fibrillation and chronic lower extremity edema presents with persistent swelling of the legs. Symptoms started several weeks ago. They have now started to develop some wounds. They have opened up on the left side and a blister on the right lower extremity. Had no fevers or chills. He is currently on Lasix 20 mg every other day. Despite this, patient symptoms are persistent. He denies any orthopnea, PND. He denies any chest pain. Does have some chronic shortness of breath which he relates to deconditioning but that has not gotten significantly worse. As far as his lower extremity swelling, he does try to keep his legs elevated. He is not particularly ambulatory. Symptoms seem to worse the more he ambulates but better at rest. Patient denies any significant pain or discomfort. Related Data Home Medications Medication Instructions Recorded Confirmed acetaminophen 500 mg capsule 500 mg PO Q6H PRN 04/16/22 01/23/23 Previous Rx's Medication Instructions Recorded betamethasone dipropionate 0.05 % 1 appl topical DAILY PRN skin 09/12/21 topical cream irritation 14 days #45 grams hydrocortisone 2.5 % topical cream 1 appl topical BID PRN skin 11/26/21 irritation #20 grams oxycodone 5 mg tablet 5 mg PO Q12H PRN pain 30 days #60 02/14/22 tabs metoprolol tartrate 50 mg tablet 50 mg PO BID 90 days #180 tabs 05/12/22 lidocaine 5 % topical patch 3 patch topical DAILY #30 ea 11/20/22 warfarin 2.5 mg tablet 1.25 mg PO DAILY #90 tabs 12/15/22 atorvastatin 10 mg tablet 10 mg PO BEDTIME 90 days #90 tabs 12/16/22 furosemide 20 mg tablet (Lasix) 20 mg PO Q OTHER DAY #14 tabs 01/22/23 bisacodyl 5 mg tablet,delayed 10 mg PO ONCE 1 day #2 tabs 01/27/23 release (Dulcolax (bisacodyl)) polyethylene glycol 3350 17 238 g PO ONCE #238 grams 01/27/23 gram/dose oral powder (Miralax) furosemide 40 mg tablet (Lasix) 40 mg PO DAILY #30 tabs 02/09/23 Allergies Allergy/AdvReac Type Severity Reaction Status Date / Time No Known Allergies Allergy Verified 01/27/23 10:18 [No Known Allergies*] Review of Systems Review of Systems: CONSTITUTIONAL: Denies weight loss, fever and chills. HEENT: Denies changes in vision and hearing. RESPIRATORY: Denies SOB and cough. CV: Denies palpitations no CP. GI: Denies abdominal pain, nausea, vomiting and diarrhea. : Denies dysuria and urinary frequency. MSK: Denies myalgia and joint pain. SKIN: Denies rash and pruritus. NEUROLOGICAL: Denies headache and syncope. PSYCHIATRIC: Denies recent changes in mood. Denies anxiety and depression. All other ROS are negative unless in HPI PMFSH Past Medical History Medical History Abscess of knee, left Anxiety Atherosclerosis of [place] coronary artery of [place] heart with angina pectoris Dyslipidemia HTN (hypertension) Moderate aortic stenosis Persistent atrial fibrillation Reactive depression Sleep apnea Surgical History History of evacuation of hematoma (~05/2015) History of revision of total replacement of left knee joint (~04/2016) History of total left knee replacement (~11/2015) History of total right knee replacement (TKR) (~04/2015) Status post ablation of incompetent vein using laser (~01/2022) Family History Family History Other Brain cancer Social History Social History Household Members: Family Housing: House Do you presently have visiting nurse or other home services: No Alcohol intake: current Alcohol intake frequency: a few times a month Patient Tobacco Use Status: Former Tobacco user Quit Date: 2016 Years Smoked: 45+/- Smoked in Last 30 Days: No e-Cigarette/Vaping Use: Never Used Second Hand Smoke Exposure: No Use of substances other than those prescribed or required for medical reasons: No Substance Use Type: Marijuana Advance Directives: No Advance Directives Information Provided: No service: No Current occupational status: previously employed and retired 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 Current occupational exposures/hazards: No Cognitive needs: No Hearing needs: No Vision needs: Yes Physical Exam ED Vital Signs: Vital Signs - 24 hr 02/09/23 05:51 02/09/23 07:09 02/09/23 08:18 Temperature 98.0 F 97.9 F Pulse Rate 64 67 Respiratory Rate 18 16 Blood Pressure 127/89 114/82 Pulse Oximetry 98 98 Oxygen Delivery Method Room Air Room Air BMI result Body Mass Index 42.2 GEN: Well developed, no acute distress, alert, oriented HEENT: Normocephalic, atraumatic, normal external ears, nose appears normal, no oropharyngeal edema or exudates Eyes: Normal to appearance Neck: Supple, no lymphadenopathy Respiratory: Talks in complete sentences, no respiratory distress, clear to auscultation bilaterally Cardiovascular: Irregularly irregular, no murmurs rubs or gallops Abdomen: Soft, nontender, nondistended, no guarding, no rebound Back: No CVA tenderness Extremities: No clubbing cyanosis 4+ pitting edema with chronic stasis dermatitis, shallow skin wound on the left lower extremity with blistering on the right leg Neurologic: No focal neurologic deficits, cranial nerves 2-12 intact, strength is 5/5 bilaterally Skin: No rash Course Course Course Narrative: The workup is complete. At this time, it appears that the lower extremity edema is most likely due to either venous insufficiency or chronic right heart failure. In either event, increasing the Lasix to 40 mg daily from 20 mg every other day would be more appropriate regimen. I recommended follow-up lab testing next week. He already has lab tests scheduled which he can go out and have performed. Medications Administered Discontinued Medications Generic Name Dose Route Start Last Admin Trade Name Freq PRN Reason Stop Dose Admin Furosemide 40 mg 02/09/23 07:46 02/09/23 07:53 Furosemide 40 Mg/4 Ml Vial IVPUSH 02/09/23 07:47 40 mg ONCE ONE Administration Protocol Medical Decision Making Medical Decision Making MDM Narrative: Patient presents with bilateral lower extremity edema that has not gotten significantly better. Is now associated with some wounds. He has had no fevers or chills. Examination reveals 3 to 4+ by pedal edema. He has chronic stasis dermatitis. There is no overt evidence of cellulitis. He has a small blister on the right lower extremity and a slight skin ulceration on the left. These appear to be noninfected. At this point, patient is on Lasix 20 mg daily. I believe patient would benefit from Lasix 40 mg daily instead. Differential diagnosis includes chronic dermatitis associated skin changes of the lower extremity, lower extremity edema, dependent edema, venous insufficiency, chronic right heart failure, hypoalbuminemia, renal insufficiency. Plan: Check laboratory analysis, EKG. Likely will increase Lasix to 40 mg daily with close follow-up with his primary care provider and/or his nutrition services manager. Patient may need to increase Lasix to 40 mg daily as opposed to 20 mg every other day. I would also recommend wound care follow-up. I would also recommend compressive dressings. Differential Diagnosis Differential Diagnoses: The differential diagnosis associated with the presentation includes (See above) Admission/Observation Consideration of admission/observation: Escalation of care including admission/observation considered Lab Data MDM Lab Attestation statement: I reviewed the patient's lab results. 02/09/23 06:11 02/09/23 06:11 Labs: Lab Results 02/09/23 02/09/23 02/09/23 Range/Units 06:11 06:11 06:11 WBC 5.5 (4.8-10.8) X10*3/uL RBC 4.64 (4.60-5.80) X10*6/uL Hgb 13.9 L (14.0-18.0) g/dl Hct 42.7 (42.0-52.0) % MCV 92.0 (80.0-98.0) fL MCH 30.0 (27.0-33.0) pg MCHC 32.6 (31.0-36.0) g/dl RDW 13.8 (11.0-16.0) % Plt Count 188 (160-400) X10*3/uL MPV 10.0 (9.4-12.4) fL Immature Gran % (Auto) 0.4 (0.0-0.4) % Neut % (Auto) 60.5 (45-73) % Lymph % (Auto) 24.2 (20-40) % Trigg % (Auto) 11.2 H (2-11) % Eos % (Auto) 2.6 (0-4) % Baso % (Auto) 1.1 (0-2) % Lymph # (Auto) 1.3 (1.2-4.9) X10*3/uL Trigg # (Auto) 0.6 (0.1-1.2) X10*3/uL Eos # (Auto) 0.1 (0.0-0.4) X10*3/uL Baso # (Auto) 0.1 (0.0-0.2) X10*3/uL Abs Immat Gran (auto) 0.02 (0.00-0.03) X10*3/uL Absolute Neuts (auto) 3.3 (2.0-8.3) x10*3/uL Absolute Nucleated RBC 0.000 (0.0-0.012) X10*3/uL Nucleated RBC % (auto) 0.0 (0.0-0.2) /100WBC Sodium 140 (135-145) mmol/L Potassium 4.5 (3.3-5.1) mmol/L Chloride 107 (96-108) mmol/L Carbon Dioxide 22 (22-29) mmol/L Anion Gap 16 (12-20) BUN 17 H (9-16) mg/dL Creatinine 1.18 (0.5-1.4) mg/dL Estim Creat Clear Calc 83.6 Estimated GFR > 60 Random Glucose 82 (60-115) mg/dL Calcium 9.2 (8.4-10.2) mg/dL Total Bilirubin 0.4 (0.0-1.0) mg/dL AST 13 (5-37) U/L ALT 10 (0-40) U/L Alkaline Phosphatase 64 (39-117) U/L B-Natriuretic Peptide 207 H (<100) pg/mL Total Protein 7.0 (6.5-8.0) g/dL Albumin 3.6 (3.5-5.0) g/dL No evidence of significant renal insufficiency or hypoalbuminemia. ProBNP is slightly elevated which appears to be chronically so. Independent Interpretation I performed an independent interpretation of an: EKG (Atrial fibrillation heart rate 65, no acute ST elevations depressions, nonspecific T-wave changes. Poor precordial progression suggestive of an old anterior wall [place].) Independent Historian Clinical information obtained from an independent historian. History obtained from or confirmed by: Spouse External Record Review External record reviewed: Office record Prescription Management I considered prescription management with: Other (diuretic) Chronic Conditions Patient?s care impacted by: Hypertension Discharge Plan Discharge Clinical Impression: Bilateral edema of lower extremity, Stasis dermatitis, Open wound of leg Patient Disposition: Home, Self-Care Instructions: Wound Healing and Your Diet (ED), Leg Edema (ED), Acute Wounds (ED) Prescriptions: New furosemide [Lasix] 40 mg tablet 40 mg PO DAILY Qty: 30 0RF No Action betamethasone dipropionate 0.05 % cream 1 appl topical DAILY PRN (Reason: skin irritation) 14 Days Qty: 45 0RF hydrocortisone 2.5 % cream 1 appl topical BID PRN (Reason: skin irritation) Qty: 20 0RF metoprolol tartrate 50 mg tablet 50 mg PO BID 90 Days Qty: 180 3RF warfarin 2.5 mg tablet 1.25 mg PO DAILY Qty: 90 1RF Protocol: Dose Management Condition: Thursday (Week One) Dose/Route: 1.25 mg Instruction: 0.5 x 2.5 mg tablets Condition: Thursday Dose/Route: 1.25 mg Instruction: 0.5 x 2.5 mg tablets Condition: Thursday Dose/Route: 1.25 mg Instruction: 0.5 x 2.5 mg tablets Condition: Thursday Dose/Route: 1.25 mg Instruction: 0.5 x 2.5 mg tablets Condition: Dose/Route: 1.25 mg Instruction: 0.5 x 2.5 mg tablets Condition: Thursday Dose/Route: 0 mg Instruction: 0 tablets Condition: Thursday Dose/Route: 1.25 mg Instruction: 0.5 x 2.5 mg tablets Condition: Thursday (Week Two) Dose/Route: 1.25 mg Instruction: 0.5 x 2.5 mg tablets Condition: Thursday Dose/Route: 1.25 mg Instruction: 0.5 x 2.5 mg tablets Condition: Thursday Dose/Route: 1.25 mg Instruction: 0.5 x 2.5 mg tablets Condition: Thursday Dose/Route: 1.25 mg Instruction: 0.5 x 2.5 mg tablets Condition: Dose/Route: 1.25 mg Instruction: 0.5 x 2.5 mg tablets Condition: Thursday Dose/Route: 0 mg Instruction: 0 tablets Condition: Thursday Dose/Route: 1.25 mg Instruction: 0.5 x 2.5 mg tablets Protocol Text: Adjustment Start Date: Thursday01/23/23 INR Value: 2.4 INR Date: 01/23/23 Recheck Date: 02/20/23 Additional Instructions: eat a mix of greens and reds please call with any med changes any black or bloody stools Rx Instructions: Adjust dosing as needed per Anticoagulation Clinic instructions. atorvastatin 10 mg tablet 10 mg PO BEDTIME 90 Days Qty: 90 1RF furosemide [Lasix] 20 mg tablet 20 mg PO Q OTHER DAY Qty: 14 0RF lidocaine 5 % adhesive patch,medicated 3 patch topical DAILY Qty: 30 2RF Rx Instructions: leave on most painful area for up to 12 hrs acetaminophen 500 mg capsule 500 mg PO Q6H PRN oxycodone 5 mg tablet 5 mg PO Q12H PRN (Reason: pain) 30 Days Qty: 60 0RF bisacodyl [Dulcolax (bisacodyl)] 5 mg tablet,delayed release (DR/EC) 10 mg PO ONCE 1 Days Qty: 2 0RF Rx Instructions: take 2 tabs at noon the day before your colonoscopy polyethylene glycol 3350 [Miralax] 17 gram/dose powder 238 g PO ONCE Qty: 238 0RF Rx Instructions: As directed by gastroenterology department at [facility] Referrals: Reji Delgado FNP- [Primary Care Provider] - Tutu Daigle MD [Physician] - 1 week Divya Lima PA [Physician Party Plan Selling Distributor] -
--- NOTE | 2023-02-09 08:20 | PC.NURSE ---
assumed care of pt at 0700. pt a&o x4, pleasant, calm, and cooperative. at bedside. pt BL LE red, swollen, with one large blister and two opened blisters, weeping. pt denies pain at rest but increases when standing/ambulation. pt medicated per sep. dressings applied to bilateral lower extremities. pt cleared to be discharged once 1st void post lasix. pt currently resting quietly on stretcher in no apparent distress. vss. wctm
== END 2023-02-09 08:38 | disposition home or self-care (01) ==
PROVIDERS: Emergency Provider Emergency Medicine; PCP Nurse Practitioner Family
DX: R60.0 Localized edema (principal); I83.12 Varicose veins of left lower extremity with inflammation; I83.11 Varicose veins of right lower extremity with inflammation; S81.802A Unspecified open wound, left lower leg, initial encounter; S81.801A Unspecified open wound, right lower leg, initial encounter; X58.XXXA Exposure to other specified factors, initial encounter; I10 Essential (primary) hypertension; E78.5 Hyperlipidemia, unspecified; I48.19 Other persistent atrial fibrillation; E66.9 Obesity, unspecified; Z68.41 Body mass index [BMI] 40.0-44.9, adult; Z87.891 Personal history of nicotine dependence; Z79.01 Long term (current) use of anticoagulants; Z79.899 Other long term (current) drug therapy; R06.02 Shortness of breath; Y93.9 Activity, unspecified; Y92.9 Unspecified place or not applicable; Y99.9 Unspecified external cause status
CPT/HCPCS: 36415; 80053; 83880; 85025; 93005; 96374; 99284; J1940

== ENCOUNTER → 2023-02-09 06:15 | Outpatient (BNV) | payer MEDICARE, SELFPAY | PROVIDERS: Emergency Provider Emergency Medicine; PCP Nurse Practitioner Family; Visit Provider Internal Medicine | DX: I48.19 Other persistent atrial fibrillation (principal) | CPT/HCPCS: 93010 ==

== ENCOUNTER 2023-02-20 08:18 | Outpatient (AMB) | payer MEDICARE, SELFPAY ==
--- NOTE | 2023-02-20 08:27 | MHC.OFFVISCO ---
Intake Intake Visit Reasons: Anticoagulation Allergies No Known Allergies [No Known Allergies*] Allergy (Verified 02/20/23 08:21) Medication List - Last Reconciled 02/20/23 by Sarah Barreto RN acetaminophen 500 mg PO Q6H PRN amoxicillin 2,000 mg (4 x 500 mg) PO ONCE 1 day atorvastatin 10 mg PO BEDTIME 90 days betamethasone dipropionate 0.05% 1 appl topical DAILY PRN 14 days bisacodyl (Dulcolax (bisacodyl)) 10 mg (2 x 5 mg) PO ONCE 1 day furosemide (Lasix) 20 mg PO Q OTHER DAY furosemide (Lasix) 40 mg PO DAILY hydrocodone-acetaminophen 5-325 mg 1 - 2 tabs PO Q4H PRN hydrocortisone 2.5% 1 appl topical BID PRN lidocaine 5% 3 patches topical DAILY metoprolol tartrate 50 mg PO BID 90 days oxycodone 5 mg PO Q12H PRN 30 days polyethylene glycol 3350 (Miralax) 238 grams PO ONCE warfarin 1.25 mg See Protocol PO DAILY Nursing Note INR: 2.3 in therapeutic range Medications and supplements reviewed had dental extraction 2 weeks ago - went well, furosemide increased 2 weeks ago, edema down and legs are getting better, has a small chronic wound and is healing, Denies any signs and symptoms of bleeding or bruising or clotting. Bleeding, bruising, clotting discussed Nutritional guidance given - enc protein, water, vit c rich foods for wound healing and usual fruits and vegetables for INR balance Dose: 1.25MG X 6 DAYS F/U INR: 1 MONTH Patient verbalizes understanding of instructions given Anti-Coag Initial Assessment Social Hx Patient Tobacco Use Status: Former Tobacco user Quit Date: 2016 alcohol intake: current Alcohol intake frequency: a few times a month Coding Level of Care Code Est Patient Level 1 Diagnoses Current use of anticoagulant therapy Z79.01 Assessment & Plan Assessment & Plan (1) Current use of anticoagulant therapy: Code(s): Z79.01 - terminal system operator (current) use of anticoagulants Category: Medical
[2023-02-20 08:28] LABS: Prothrombin Time Whole Bld POC 27.3 sec (11.1-13.5); ~PT, ~INR - Anti Coag Clinic 2.3 (0.9-1.1)
== END 2023-02-20 08:37 | disposition home or self-care (01) ==
LOC: HO.ACS 08:18
PROVIDERS: PCP Nurse Practitioner Family; Visit Provider Internal Medicine
DX: Z79.01 Long term (current) use of anticoagulants (principal)

== ENCOUNTER → 2023-02-20 08:18 | Outpatient (BNVA) | payer MEDICARE, SELFPAY | PROVIDERS: PCP Nurse Practitioner Family; Visit Provider Internal Medicine | DX: I48.91 Unspecified atrial fibrillation (principal); Z79.01 Long term (current) use of anticoagulants; Z51.81 Encounter for therapeutic drug level monitoring | CPT/HCPCS: 85610; 99211 ==

== ENCOUNTER 2023-02-23 07:13 | Outpatient (REF) | payer MEDICARE, SELFPAY ==
[2023-02-23 11:54] LABS: MANUAL DIFF FLAG NO
[2023-02-23 12:02] LABS: Appearance Urine Clear; Color Urine Yellow; Glucose Urine UA Negative (Negative); Leukocyte Esterase Urine Trace (Negative); Nitrite Urine Negative (Negative); UMIC TRIGGER UACC YES; Urine Blood Negative (Negative); Urine Ketones Negative (Negative); Urine Protein Trace mg/dL (Neg-Trace)
[2023-02-23 12:06] LABS: Bacteria Urine None Seen (None Seen); Hyaline Casts Urine 0-2 /LPF (0-2); Squamous Epithelial Cell Urine 0-2 /HPF (0-2); WBC Urine 0-5 /HPF (0-5)
[2023-02-23 12:18] LABS: Basophils Absolute Auto 0.1 X10*3/uL (0.0-0.2); Basophils Percent Auto 1.3 % (0-2); Eosinophils Absolute Auto 0.3 X10*3/uL (0.0-0.4); Eosinophils Percent Auto 3.8 % (0-4); Hemoglobin 14.8 g/dl (14.0-18.0); Imm Gran Abs Auto 0.04 X10*3/uL (0.00-0.03); Imm Gran Pct Auto 0.5 % (0.0-0.4); Lymphocytes Absolute Auto 2.2 X10*3/uL (1.2-4.9); Lymphocytes Percent Auto 27.3 % (20-40); Mean Corpuscular HGB Conc 32.9 g/dl (31.0-36.0); Mean Corpuscular Hemoglobin 29.8 pg (27.0-33.0); Mean Corpuscular Volume 90.7 fL (80.0-98.0); Mean Platelet Volume 10.3 fL (9.4-12.4); Monocytes Absolute Auto 0.8 X10*3/uL (0.1-1.2); Neutrophils Absolute Auto 4.5 x10*3/uL (2.0-8.3); Neutrophils Percent Auto 57.1 % (45-73); Platelet Count 243 X10*3/uL (160-400); Red Blood Count 4.96 X10*6/uL (4.60-5.80); Red Cell Distribution Width 13.5 % (11.0-16.0); White Blood Count 7.9 X10*3/uL (4.8-10.8)
[2023-02-23 12:52] LABS: Alanine Aminotransferase 10 U/L (0-40); Albumin Level 3.9 g/dL (3.5-5.0); Alkaline Phosphatase 67 U/L (39-117); Anion Gap 13 (12-20); Aspartate Amino Transferase 16 U/L (5-37); Bilirubin Total 0.6 mg/dL (0.0-1.0); Blood Urea Nitrogen 18 mg/dL (9-16); Calcium 9.4 mg/dL (8.4-10.2); Carbon Dioxide 27 mmol/L (22-29); Chloride 106 mmol/L (96-108); Cholesterol 146 mg/dL; Estimated Glomerular Filt Rate > 60; Glucose Fasting 97 mg/dL (60-99); HDL Cholesterol 50 mg/dL; LDL Cholesterol Calculated 76 mg/dl; Potassium 4.8 mmol/L (3.3-5.1); Sodium 141 mmol/L (135-145); TSH reflex Free T4 0.69 uIU/mL (0.32-4.0); Total Protein 7.5 g/dL (6.5-8.0); Triglycerides 101 mg/dL
[2023-02-23 12:57] LABS: Prostate Specific Antigen Scr 0.52 ng/mL (<0.05-4.0)
== END 2023-02-23 07:14 | disposition home or self-care (01) ==
LOC: HO.HMGCLDS 07:13
PROVIDERS: PCP Nurse Practitioner Family; Visit Provider Nurse Practitioner Family
DX: Z12.5 Encounter for screening for malignant neoplasm of prostate (principal); I10 Essential (primary) hypertension
CPT/HCPCS: 36415; 80053; 80061; 81001; 81003; 84153; 84443; 85025

== ENCOUNTER 2023-03-03 08:23 | Outpatient (AMB) | payer MEDICARE, SELFPAY ==
[2023-03-03 08:59] VITALS: BP 100/68; PULSE 97; O2SAT 96; BMI 42.6
--- NOTE | 2023-03-03 08:59 | A.OFFPC_ITS ---
Vital Signs 03/03/23 08:59 Height 6 ft Weight 314 lb 8 oz BMI 42.6 BP 100/68 Blood Pressure Location Lt brachial Position Sitting Pulse 97 Pulse Source Pulse Oximeter Pulse Oximetry (%) 96 Oxygen Delivery Method Room Air Intake Visit Reasons: 3 mo follow up HTN Allergies No Known Allergies [No Known Allergies*] Allergy (Verified 03/03/23 09:01) Medication List - Last Reconciled 03/03/23 by JOSE Pacheco atorvastatin 10 mg PO BEDTIME 90 days betamethasone dipropionate 0.05% 1 appl topical DAILY PRN 14 days bisacodyl (Dulcolax (bisacodyl)) 10 mg (2 x 5 mg) PO ONCE 1 day furosemide (Lasix) 40 mg PO DAILY hydrocodone-acetaminophen 5-325 mg 1 - 2 tabs PO Q4H PRN hydrocortisone 2.5% 1 appl topical BID PRN ibuprofen (IBU-200) 400 mg PO Q8H metoprolol tartrate 50 mg PO BID 90 days polyethylene glycol 3350 (Miralax) 238 grams PO ONCE warfarin 1.25 mg See Protocol PO DAILY Tobacco use date assessed: 03/03/23 Fall risk assessment: No Falls in past year Last assessed Fall Risk: 03/03/23 Dental Screening Dental Screen Date: 03/03/23 Did you have a dental visit in the last 12 months?: Yes Did you have a dental problem in the last 6 months where you did not have access to dental care?: No Was dental information given to patient?: Patient has dentist HPI 3 mo follow up HTN HPI Details Pt c/o swelling of his BLE. He has developed some wounds of his lower extremities as well. Pt is currently taking lasix 40mg daily. He is keeping his legs wrapped. Will have pt keep the area free of debris, apply bacitracin, and keep them wrapped. Pt is following up with cardiology. Denies chest pain, shortness of breath, dizziness, and N/V. Pt c/o discomfort behind his left eye for approximately 1.5-2 weeks. He denies any blurred vision. ? paroxysmal hemicr declan. Will send low-dose indomethacin. Pt knows not to take this with ibuprofen, and to take PRN only (on warfarin). [facility] Medical History Abscess of knee, left Anxiety Atherosclerosis of [place] coronary artery of [place] heart with angina pectoris Dyslipidemia HTN (hypertension) Moderate aortic stenosis Persistent atrial fibrillation Reactive depression Sleep apnea Surgical History History of evacuation of hematoma (~05/2015) History of revision of total replacement of left knee joint (~04/2016) History of total left knee replacement (~11/2015) History of total right knee replacement (TKR) (~04/2015) Status post ablation of incompetent vein using laser (~01/2022) Family History Other Brain cancer Social History Household Members: Family Housing: House Do you presently have visiting nurse or other home services: No Alcohol intake: current Alcohol intake frequency: a few times a month Patient Tobacco Use Status: Former Tobacco user Quit Date: 2016 Years Smoked: 46+/- e-Cigarette/Vaping Use: Never Used Second Hand Smoke Exposure: No Substance Use Type: Marijuana service: No Current occupational status: previously employed and retired 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 Current occupational exposures/hazards: No Cognitive needs: No Hearing needs: No Vision needs: Yes Questionnaire Thrive Questionnaire Date Thrive assessed: 11/20/22 ENDY-7 AMB Questionnaire ENDY-7 Date ENDY - 7 assessed: 11/20/22 Source: Developed by Drs. Olivier Ann, Nicci Cates, Ken Ewing and colleagues, with an educational miller from [employer]. Review of Systems Const Reports as per HPI Physical exam (Primary Care) Vital Signs: Last Vital Signs Pulse 97 03/03/23 08:59 BP 100/68 03/03/23 08:59 Pulse Ox 96 03/03/23 08:59 Oxygen Delivery Method Room Air 03/03/23 08:59 BMI result Body Mass Index 42.6 Tobacco/Smoking Status: Tobacco use Status Tobacco use date assessed 03/03/23 03/03/23 09:06 Patient Tobacco Use Status Former Tobacco user 03/03/23 09:06 e-Cigarette/Vaping Use Never Used 03/03/23 09:06 Thrive Assessment: Date of Thrive Assessment Date Thrive assessed 11/20/22 03/03/23 09:06 Const General: cooperative Nutritional Appearance: obese morbidly obese Orientation/consciousness: patient oriented x3 HENMT Face and sinus: Yes sinuses nontender Resp Effort & Inspection: normal respiratory effort Cardio Rate: regular rate Rhythm: regular rhythm Heart sounds: S1 normal heart sound present, S2 normal heart sound present and Murmur heart sound present systolic Skin Other: LLE with small superficial skin tear, good granulation tissue, no signs of infection, discoloration to BLE Neuro General: patient oriented x3 Extrem Other: weak dorsalis pedus pulse to left side Right lower extremity: edema Details: pitting and 1+ Left lower extremity: edema Details: pitting and 1+ Psych Appearance: grossly normal Mental Status: mental status grossly normal Speech and movement: Normal speech and movement present Affect: normal affect Attitude: cooperative Thought process: Normal thought process present Thought content: Normal thought content present Insight: Good insight present (Psych) Judgement: Good judgement present (Psych) Assessment and Plan Assessment & Plan (1) HTN (hypertension): Code(s): I10 - Essential (primary) hypertension (2) Leg injury: Code(s): S89.90XA - Unspecified injury of unspecified lower leg, initial encounter Plan The patient agreed to the use of a medical appointment clerk for this encounter. Scribed for RIKKI Hannon by Valentine Rowe medical appointment clerk, on 03/03/2023 at 09:20 EST. Orders: Orders Comprehensive [place]. Panel Fast Today I10 - Essential (primary) hypertension Complete Blood Count Auto Diff Today I10 - Essential (primary) hypertension Medications: New indomethacin administer with food or milk 50 mg PO ONCE PRN 10 caps 0RF behind eye pain 10 days amoxicillin take 4 tab 1 hr before dental procedure 2,000 mg (4 x 500 mg) PO ONCE 4 tabs 3RF 1 day Refilled furosemide (Lasix) 40 mg PO DAILY 30 tabs 1RF Discontinued oxycodone Discontinued Reason: Ancillary Entered New Order 5 mg PO Q12H 30 days PRN 60 tabs 0RF pain Coding Level of Care Code Est Pt Level 3 (50727) Diagnoses HTN (hypertension) I10 Leg injury S89.90XA
== END 2023-03-03 09:47 | disposition home or self-care (01) ==
PROVIDERS: Visit Provider Nurse Practitioner Family
DX: I10 Essential (primary) hypertension (principal); S89.90XA Unspecified injury of unspecified lower leg, initial encounter
CPT/HCPCS: 99213

== ENCOUNTER 2023-03-13 07:05 | Outpatient (REF) | payer MEDICARE, SELFPAY ==
[2023-03-13 11:34] LABS: MANUAL DIFF FLAG NO
[2023-03-13 11:40] LABS: Appearance Urine Clear; Color Urine Yellow; Glucose Urine UA Negative (Negative); Leukocyte Esterase Urine Negative (Negative); Nitrite Urine Negative (Negative); PH 5.5 (5.0-9.0); Urine Blood Negative (Negative); Urine Ketones Negative (Negative); Urine Protein Negative (Neg-Trace)
[2023-03-13 11:42] LABS: Urine Cytology See Pathology rpt
[2023-03-13 11:44] LABS: Basophils Absolute Auto 0.1 X10*3/uL (0.0-0.2); Basophils Percent Auto 1.1 % (0-2); Eosinophils Absolute Auto 0.3 X10*3/uL (0.0-0.4); Eosinophils Percent Auto 3.4 % (0-4); Hematocrit 42.7 % (42.0-52.0); Imm Gran Abs Auto 0.06 X10*3/uL (0.00-0.03); Imm Gran Pct Auto 0.7 % (0.0-0.4); Lymphocytes Absolute Auto 1.9 X10*3/uL (1.2-4.9); Lymphocytes Percent Auto 22.5 % (20-40); Mean Corpuscular HGB Conc 32.8 g/dl (31.0-36.0); Mean Corpuscular Hemoglobin 29.5 pg (27.0-33.0); Mean Corpuscular Volume 90.1 fL (80.0-98.0); Mean Platelet Volume 10.2 fL (9.4-12.4); Monocytes Absolute Auto 0.7 X10*3/uL (0.1-1.2); Monocytes Percent Auto 8.4 % (2-11); Neutrophils Absolute Auto 5.5 x10*3/uL (2.0-8.3); Neutrophils Percent Auto 63.9 % (45-73); Platelet Count 258 X10*3/uL (160-400); Red Blood Count 4.74 X10*6/uL (4.60-5.80); Red Cell Distribution Width 13.8 % (11.0-16.0); White Blood Count 8.6 X10*3/uL (4.8-10.8)
[2023-03-13 11:44] LABS: Bacteria Urine None Seen (None Seen); Hyaline Casts Urine 0-2 /LPF (0-2); RBC Urine 0-2 /HPF (0-2); Squamous Epithelial Cell Urine 0-2 /HPF (0-2); WBC Urine 0-5 /HPF (0-5)
[2023-03-13 12:35] LABS: Alanine Aminotransferase 9 U/L (0-40); Albumin Level 3.8 g/dL (3.5-5.0); Alkaline Phosphatase 75 U/L (39-117); Anion Gap 18 (12-20); Aspartate Amino Transferase 15 U/L (5-37); Bilirubin Total 0.3 mg/dL (0.0-1.0); Blood Urea Nitrogen 21 mg/dL (9-16); Calcium 9.7 mg/dL (8.4-10.2); Carbon Dioxide 24 mmol/L (22-29); Chloride 106 mmol/L (96-108); Estimated Glomerular Filt Rate > 60; Glucose Fasting 103 mg/dL (60-99); Magnesium 1.6 mg/dL (1.6-2.6); Potassium 4.5 mmol/L (3.3-5.1); Sodium 143 mmol/L (135-145); Total Protein 7.6 g/dL (6.5-8.0)
== END 2023-03-13 07:06 | disposition home or self-care (01) ==
LOC: HO.HMGCLDS 07:05
PROVIDERS: PCP Nurse Practitioner Family; Visit Provider Nurse Practitioner Family
DX: I10 Essential (primary) hypertension (principal); R31.29 Other microscopic hematuria
CPT/HCPCS: 36415; 80053; 81001; 81003; 83735; 85025; 87086; 88112

== ENCOUNTER 2023-03-20 08:03 | Outpatient (AMB) | payer MEDICARE, SELFPAY ==
[2023-03-20 08:09] LABS: Prothrombin Time Whole Bld POC 31.6 sec (11.1-13.5); ~PT, ~INR - Anti Coag Clinic 2.6 (0.9-1.1)
--- NOTE | 2023-03-20 08:12 | MHC.OFFVISCO ---
Intake Intake Visit Reasons: Anticoagulation Allergies No Known Allergies [No Known Allergies*] Allergy (Verified 03/20/23 08:04) Medication List - Last Reconciled 03/20/23 by Sarah Barreto RN amoxicillin 2,000 mg (4 x 500 mg) PO ONCE 1 day atorvastatin 10 mg PO BEDTIME 90 days betamethasone dipropionate 0.05% 1 appl topical DAILY PRN 14 days bisacodyl (Dulcolax (bisacodyl)) 10 mg (2 x 5 mg) PO ONCE 1 day furosemide (Lasix) 40 mg PO DAILY hydrocodone-acetaminophen 5-325 mg 1 - 2 tabs PO Q4H PRN hydrocortisone 2.5% 1 appl topical BID PRN indomethacin 50 mg PO ONCE PRN 10 days metoprolol tartrate 50 mg PO BID 90 days polyethylene glycol 3350 (Miralax) 238 grams PO ONCE warfarin 1.25 mg See Protocol PO DAILY Nursing Note INR: 2.6 in therapeutic range Medications and supplements reviewed No changes in health, diet, medications, or supplements, Denies any signs and symptoms of bleeding or bruising or clotting. Bleeding, bruising, clotting discussed Nutritional guidance given Dose: 1.25MG X 6 DAYS F/U INR: 4 WEEKS Patient verbalizes understanding of instructions given Anti-Coag Initial Assessment Social Hx Patient Tobacco Use Status: Former Tobacco user Quit Date: 2016 alcohol intake: current Alcohol intake frequency: a few times a month Coding Level of Care Code Est Patient Level 1 Diagnoses Current use of anticoagulant therapy Z79.01 Assessment & Plan Assessment & Plan (1) Current use of anticoagulant therapy: Code(s): Z79.01 - terminal make up operator (current) use of anticoagulants Category: Medical
== END 2023-03-20 08:15 | disposition home or self-care (01) ==
LOC: HO.ACS 08:03
PROVIDERS: PCP Nurse Practitioner Family; Visit Provider Internal Medicine
DX: Z79.01 Long term (current) use of anticoagulants (principal)

== ENCOUNTER → 2023-03-20 08:03 | Outpatient (BNVA) | payer MEDICARE, SELFPAY | PROVIDERS: PCP Nurse Practitioner Family; Visit Provider Internal Medicine | DX: I48.91 Unspecified atrial fibrillation (principal); Z79.01 Long term (current) use of anticoagulants; Z51.81 Encounter for therapeutic drug level monitoring | CPT/HCPCS: 85610; 99211 ==

== ENCOUNTER 2023-04-02 09:26 | Outpatient (AMB) | payer MEDICARE, SELFPAY ==
--- NOTE | 2023-04-02 07:17 | A.OFFPC_ITS ---
Intake Visit Reasons: Congestion~Land line Allergies No Known Allergies [No Known Allergies*] Allergy (Verified 03/20/23 08:04) Tobacco use date assessed: 03/03/23 HPI Congestion~Land line HPI Details Pt c/o left-sided nasal drainage. He reports that this occurs all day with no improvement. ? allergy component. Recommended OTC cetirizine 2 tabs daily, up to 2 tabs BID. Denies fever, chills, and sore throat. [facility] History (Updated 04/02/23 @ 07:40 [facility] Abscess of knee, left Moderate aortic stenosis Persistent atrial fibrillation Atherosclerosis of [place] coronary artery of [place] heart with angina pectoris Dyslipidemia Sleep apnea Reactive depression Anxiety HTN (hypertension) Surgical History (Updated 03/24/23 @ 09:18 by Natasha Aparicio RN) History of incision and drainage Hx of carpal tunnel repair Status post ablation of incompetent vein using laser (~01/2022) History of revision of total replacement of left knee joint (~04/2016) History of total left knee replacement (~11/2015) History of evacuation of hematoma (~05/2015) History of total right knee replacement (TKR) (~04/2015) Family History Other Brain cancer Social History Household Members: Family Housing: House Do you presently have visiting nurse or other home services: No Alcohol intake: current Alcohol intake frequency: a few times a month Patient Tobacco Use Status: Former Tobacco user Quit Date: 2017 Years Smoked: 45+/- e-Cigarette/Vaping Use: Never Used Second Hand Smoke Exposure: No Substance Use Type: Marijuana service: No Current occupational status: previously employed and retired 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 Current occupational exposures/hazards: No Cognitive needs: No Hearing needs: No Vision needs: Yes Questionnaire Thrive Questionnaire Date Thrive assessed: 11/20/22 ENDY-7 AMB Questionnaire ENDY-7 Date ENDY - 7 assessed: 11/20/22 Source: Developed by Drs. Olivier Ann, Nicci Cates, Ken Ewing and colleagues, with an educational miller from [employer]. Review of Systems Const Reports as per HPI Physical exam (Primary Care) Tobacco/Smoking Status: Tobacco use Status Tobacco use date assessed 03/03/23 04/02/23 07:19 Patient Tobacco Use Status Former Tobacco user 04/02/23 07:19 e-Cigarette/Vaping Use Never Used 04/02/23 07:19 Thrive Assessment: Date of Thrive Assessment Date Thrive assessed 11/20/22 04/02/23 07:19 Const General: cooperative Orientation/consciousness: patient oriented x3 Neuro General: patient oriented x3 Psych Mental Status: mental status grossly normal Speech and movement: Clear speech present Affect: normal affect Attitude: cooperative Thought process: Normal thought process present Thought content: Normal thought content present Insight: Good insight present (Psych) Judgement: Good judgement present (Psych) Telehealth Telehealth Location of provider rendering services: practice address Location of patient: address on file Patient Identification confirmed using: Name, : Yes Telehealth method: voice only Patient verbally consented to treatment: Yes Patient verbally consented to billing insurance company: Yes Patient informed of any privacy concerns related to visit: Yes Minutes spent on Phone/Video with Pt.: 10 Assessment and Plan Assessment & Plan (1) Post-nasal drip: Code(s): R09.82 - Postnasal drip Plan The patient agreed to the use of a biomedical service engineer for this encounter. Scribed for RIKKI Hannon by Valentine Rowe biomedical service engineer, on 04/02/2023 at 07:15 EST. Coding Level of Care Code Tele Est Pt Level 3 (79178) Diagnoses Post-nasal drip R09.82
== END 2023-04-02 09:29 | disposition home or self-care (01) ==
PROVIDERS: PCP Nurse Practitioner Family; Visit Provider Nurse Practitioner Family
DX: R09.82 Postnasal drip (principal)
CPT/HCPCS: 99441

== ENCOUNTER 2023-04-03 08:06 | Outpatient (AMB) | payer MEDICARE, SELFPAY ==
--- NOTE | 2023-04-03 08:14 | MHC.OFFVIS ---
Intake Vital Signs 04/03/23 08:15 Height 6 ft Weight 323 lb 3.163 oz BMI 43.8 BP 114/62 Blood Pressure Location Lt brachial Position Sitting Pulse 84 Intake Visit Reasons: Preop req by GI before colonoscopy ([facility]) Intake Note: preop req Gi colonoscopy Drug Abuse Resistance Education Officer Required: No Roller Mill Tender: Roller Mill Tender Present Accompanied by: Spouse Allergies No Known Allergies [No Known Allergies*] Allergy (Verified 04/03/23 08:21) Medication List - Last Reconciled 04/03/23 by Haylee Mcneal NP-C atorvastatin 10 mg PO BEDTIME 90 days betamethasone dipropionate 0.05% 1 appl topical DAILY PRN 14 days cetirizine (Zyrtec) 10 mg PO DAILY PRN furosemide (Lasix) 40 mg PO DAILY hydrocodone-acetaminophen 5-325 mg 1 - 2 tabs PO Q4H PRN hydrocortisone 2.5% 1 appl topical BID PRN metoprolol tartrate 50 mg PO BID 90 days warfarin 1.25 mg See Protocol PO DAILY HPI Preop req by GI before colonoscopy ([facility]) HPI Details Andre is a 72-year-old male past medical history of morbid obesity, hypertension, hyperlipidemia, persistent atrial fibrillation, moderate to severe aortic stenosis presents for preop clearance for colonoscopy. Today he reports that he has had no new cardiac symptoms since his last visit in October. He denies any chest discomfort at rest with activity. He does have some shortness of breath with walking. He has significant discomfort in his knees with ambulation and uses 2 canes. He is mostly sedentary at home. He denies presyncope, syncope, falls. No PND, orthopnea. He has chronic lower leg edema which has improved some recently with the increased dose of Lasix. He has a wound on his left lower leg with in Renny wrap in place. He tells me it is improving and no signs of infection. He has no date scheduled for the colonoscopy. He tells me he had a date in January but it was canceled. Taking meds as directed. On Coumadin for anticoagulation in no bleeding reported. [facility] Medical History Abscess of knee, left Moderate aortic stenosis Persistent atrial fibrillation Atherosclerosis of [place] coronary artery of [place] heart with angina pectoris Dyslipidemia Sleep apnea Reactive depression Anxiety HTN (hypertension) Surgical History History of incision and drainage Hx of carpal tunnel repair Status post ablation of incompetent vein using laser (~01/2022) History of revision of total replacement of left knee joint (~04/2016) History of total left knee replacement (~11/2015) History of evacuation of hematoma (~05/2015) History of total right knee replacement (TKR) (~04/2015) Family History Other Brain cancer Social History Household Members: Family Housing: House Do you presently have visiting nurse or other home services: No Alcohol intake: current Alcohol intake frequency: a few times a month Patient Tobacco Use Status: Former Tobacco user Quit Date: 2016 Years Smoked: 45+/- e-Cigarette/Vaping Use: Never Used Second Hand Smoke Exposure: No Substance Use Type: Marijuana service: No Current occupational status: previously employed and retired 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 Current occupational exposures/hazards: No Cognitive needs: No Hearing needs: No Vision needs: Yes Review of Systems Const All systems reviewed & are unremarkable except as noted in HPI and below ENT Reports dizziness Card Details: Bilateral knee pain, impaired mobility from this Denies chest pain, Denies chest pain at rest, Denies chest pain with activity, Denies rapid heart rate, Denies pedal edema, Denies edema, Reports leg edema, Denies lightheadedness, Denies palpitations, Denies dyspnea, Reports dyspnea on exertion and Denies orthopnea Resp Denies cough, Denies dyspnea and Reports dyspnea on exertion GI Denies hematochezia and Denies change in stool character Musc Reports abnormal gait, Reports limited range of motion, Denies muscle cramps, Denies muscle weakness, Denies numbness, Denies radiating pain into limb, Denies stiffness and Denies tingling Neuro Reports abnormal gait, Reports dizziness, Denies numbness and Denies tingling Endo Denies palpitations Physical Exam Vital Signs: Last Vital Signs Pulse 84 04/03/23 08:15 BP 114/62 04/03/23 08:15 BMI result Body Mass Index 43.8 Const Other: morbidly obese, much difficulty with ambulation and uses 2 canes. General: alert, awake and in distress (bilateral leg pain with walking. Not distressed at rest) Orientation/consciousness: patient oriented x3 Neck Neck: Yes no JVD Resp Effort & Inspection: normal respiratory effort Auscultation: clear to auscultation bilaterally, no rales, no rhonchi and no wheezes Cardio Jugular venous distension: no JVD (no noted. obese difficult to assess) Rate: regular rate Rhythm: abnormal rhythm Heart sounds: Murmur heart sound present (systolic, heart tones difficult to hear) and no rubs Neuro General: patient oriented x3 Extrem Other: dark discoloration to each lower leg, hard skin to palpation. No noted skin breaks. Psych Mental Status: mental status grossly normal Speech and movement: Normal speech and movement present Office Procedures EKG Details: Today, read by me, atrial fibrillation, can not rule out anterior infarct, no change from prior EKG 02/09/2023, rate 84, QTC 413 millisecond [id number], Complete Assessment & Plan Assessment & Plan (1) Severe aortic stenosis: Code(s): I35.0 - Nonrheumatic aortic (valve) stenosis Plan: History of aortic stenosis. Last echocardiogram done 05/01/2022 showing EF 60-65%, severe aortic stenosis with mean gradient 36 mmHg, aortic valve area 0.9 centimeter sq. A follow-up echocardiogram done 11/19/2022 showed EF 60-65%, moderate to severe aortic stenosis with mean gradient 23 mmHg an aortic valve area 1.03 centimeter sq. He continues to deny having any symptoms however his activity level is very sedentary. He has some shortness of breath with walking which is not new and likely related to morbid obesity, knee pain and much difficulty with ambulation. Coming to this office today takes much out of him and he needs to ambulate with 2 canes due to leg and knee problems. Nuclear stress test was done on 05/07/2021 showing normal myocardial perfusion imaging. He is aware of the need for diagnostic cardiac catheterization when aortic valve confirmed to be severe and symptomatic. Reviewed the diagnosis of aortic stenosis, cardinal signs of severe , treatment plans for aortic stenosis. He is due for a repeat echocardiogram in May. Plan to call him with results. Cardiology office visit currently plan for 6 months, sooner if needed (2) Persistent atrial fibrillation: Code(s): I48.19 - Other persistent atrial fibrillation Plan: History of persistent atrial fibrillation, likely chronic. Holter monitor done in 2020 for 3 days showed AFib with average heart rate 83. EKG today showed AFib, heart rate 84. He is on metoprolol for heart rate control. He is on Coumadin for anticoagulation with INR goal 2-3. He follows with [facility] antico[facility]. No bleeding issues reported. (3) Morbid obesity: Code(s): E66.01 - Morbid (severe) obesity due to excess calories Plan: He has not been able to lose weight due to his low physical activity level (4) Activity intolerance: Code(s): R68.89 - Other general symptoms and signs (5) Preop cardiovascular exam: Code(s): Z01.810 - Encounter for preprocedural cardiovascular examination Plan: Preop for colonoscopy.+ cologard test 12/12/2022. Case reviewed with Dr. Daigle. Patient is intermediate cardiac risk to proceed with this procedure. Patient informed of his risk for the procedure including [place], Congestive heart failure, arrhythmia, AFib RVR, stroke. He is agreeable to proceed. Avoid fluid overload, hypotension. Coumadin can be held for up to 5 days prior to the procedure and restarted as soon as cleared by surgeon to do so. Call/consult Cardiology if needed. Coding Level of Care Code Est Pt Level 4 (86808) Diagnoses Severe aortic stenosis I35.0 Persistent atrial fibrillation I48.19 Morbid obesity E66.01 Activity intolerance R68.89 Preop cardiovascular exam Z01.810 CPT Codes EKG - CPT: 42459-[id number], Complete ([id number]) Time Spent (min) 28
[2023-04-03 08:15] VITALS: BP 114/62; PULSE 84; BMI 43.8
== END 2023-04-03 08:54 | disposition home or self-care (01) ==
PROVIDERS: PCP Nurse Practitioner Family; Visit Provider Nurse Practitioner Family
DX: I35.0 Nonrheumatic aortic (valve) stenosis (principal); I48.19 Other persistent atrial fibrillation; E66.01 Morbid (severe) obesity due to excess calories; R68.89 Other general symptoms and signs; Z01.810 Encounter for preprocedural cardiovascular examination
CPT/HCPCS: 93010; 99214

== ENCOUNTER → 2023-04-03 08:06 | Outpatient (BNVA) | payer MEDICARE, SELFPAY | PROVIDERS: PCP Nurse Practitioner Family; Visit Provider Nurse Practitioner Family | DX: Z01.810 Encounter for preprocedural cardiovascular examination (principal); I35.0 Nonrheumatic aortic (valve) stenosis; I48.19 Other persistent atrial fibrillation; E66.01 Morbid (severe) obesity due to excess calories; Z68.41 Body mass index [BMI] 40.0-44.9, adult; R68.89 Other general symptoms and signs; Z79.01 Long term (current) use of anticoagulants | CPT/HCPCS: 93005; 99212 ==

== ENCOUNTER 2023-04-06 08:10 | Outpatient (REF) | payer MEDICARE, SELFPAY ==
--- NOTE | ~2023-04-06 | US_ITS ---
EXAMINATION: US RETROPERITONEAL COMPLETE (RENAL) CLINICAL INFORMATION: Other microscopic hematuria. COMPARISON: None. TECHNIQUE: Real-time imaging of the kidneys and bladder. FINDINGS: RIGHT KIDNEY: 12.1 x 5.0 x 6.4 cm (SAG x AP x TRV). The kidney is normal in size, contour, and echogenicity. Renal cortical thickness is normal. No calculi or focal parenchymal lesions. No hydronephrosis. LEFT KIDNEY: 13.3 x 5.4 x 6.4 cm (SAG x AP x TRV). The kidney is normal in size, contour, and echogenicity. Renal cortical thickness is normal. No calculi or focal parenchymal lesions. No hydronephrosis. There is an echogenic reflector with twinkle artifact measuring approximately 5 mm. BLADDER: Well distended and normal. Bilateral ureteral jets are demonstrated. Prevoid bladder volume is 399 mL. Postvoid bladder volume is 31 mL. ADDITIONAL FINDINGS: The prostate is not visualized. US/US retroperitoneal comp IMPRESSION: Questionable 5 mm left upper renal calculus versus vascular calcification.
== END 2023-04-06 08:11 | disposition home or self-care (01) ==
LOC: HO.HMGCX 08:10
PROVIDERS: PCP Nurse Practitioner Family; Visit Provider Nurse Practitioner Family
DX: R31.29 Other microscopic hematuria (principal)
CPT/HCPCS: 76770

== ENCOUNTER 2023-04-17 07:57 | Outpatient (AMB) | payer MEDICARE, SELFPAY ==
--- NOTE | 2023-04-17 08:12 | MHC.OFFVISCO ---
Intake Intake Visit Reasons: Anticoagulation Allergies No Known Allergies [No Known Allergies*] Allergy (Verified 04/17/23 08:03) Medication List - Last Reconciled 04/17/23 by Sarah Barreto RN atorvastatin 10 mg PO BEDTIME 90 days betamethasone dipropionate 0.05% 1 appl topical DAILY PRN 14 days bisacodyl (Dulcolax (bisacodyl)) 10 mg (2 x 5 mg) PO ONCE 1 day cetirizine (Zyrtec) 10 mg PO DAILY PRN fluticasone propionate 50 mcg/actuation 1 spray intranasal DAILY furosemide (Lasix) 40 mg PO DAILY hydrocodone-acetaminophen 5-325 mg 1 - 2 tabs PO Q4H PRN hydrocortisone 2.5% 1 appl topical BID PRN metoprolol tartrate 50 mg PO BID 90 days polyethylene glycol 3350 (Miralax) 238 grams PO ONCE 1 day warfarin 1.25 mg See Protocol PO DAILY Nursing Note INR: 2.2 in therapeutic range Medications and supplements reviewed holding [facility] for colonoscopy as of last night for 04/21/23 - he had a positive cologaurd, denies any s/sx of bleeding, bruising or black stools Denies any signs and symptoms of bleeding or bruising or clotting. Bleeding, bruising, clotting discussed Nutritional guidance given avoid greens x 5 days post procedure - eat foods to help raise the INR post procedure Dose: hold x 5 days per GI then rsuem 2.5mg x 2 days/ 1.25mg x 5 days then resume usual dose, f/u 10 days per pt request due to transoprtaton F/U INR: 05/01/23 Patient verbalizes understanding of instructions given msg sent to PCP regrading lovenox Anti-Coag Initial Assessment Social Hx Patient Tobacco Use Status: Former Tobacco user Quit Date: 2016 alcohol intake: current Alcohol intake frequency: a few times a month Coding Level of Care Code Est Patient Level 1 Diagnoses Current use of anticoagulant therapy Z79.01 Assessment & Plan Assessment & Plan (1) Current use of anticoagulant therapy: Code(s): Z79.01 - longterm (current) use of anticoagulants Category: Medical
== END 2023-04-17 08:21 | disposition home or self-care (01) ==
LOC: HO.ACS 07:57
PROVIDERS: PCP Nurse Practitioner Family; Visit Provider Internal Medicine
DX: Z79.01 Long term (current) use of anticoagulants (principal)

== ENCOUNTER → 2023-04-17 07:57 | Outpatient (BNVA) | payer MEDICARE, SELFPAY | PROVIDERS: PCP Nurse Practitioner Family; Visit Provider Internal Medicine | DX: I48.91 Unspecified atrial fibrillation (principal); Z79.01 Long term (current) use of anticoagulants; Z51.81 Encounter for therapeutic drug level monitoring | CPT/HCPCS: 85610; 99211 ==

== ENCOUNTER → 2023-04-21 13:47 | Day surgery (SDC) | payer MEDICARE, SELFPAY ==
[2023-04-07 11:19] VITALS: BMI 43.8
--- NOTE | 2023-04-17 10:13 | HO.ANESPROP2 ---
HPI - Anesthesia Eval Consult details Narrative: 72yo M for Colonoscopy Cardiac cleared Warfarin for afib [facility] Active Problems Active Problems: All Active Problems (Updated 04/03/23 @ 09:05 by Haylee Mcneal, LAURA-C) Preop cardiovascular exam (Acute) Post-nasal drip (Acute) Leg injury (Acute) Microscopic hematuria (Acute) Cellulitis of leg (Acute) Positive colorectal cancer screening using Cologuard test (Acute) Activity intolerance (Acute) Morbid obesity (Acute) Cellulitis of left leg (Acute) History of carpal tunnel surgery of right wrist (Acute) Carpal tunnel syndrome of right wrist (Acute) Severe aortic stenosis (Acute) Peeling skin (Acute) Hx of basal cell carcinoma (Acute) Lymphedema (Acute) Hand numbness (Acute) Obesity due to excess calories without serious comorbidity (Acute) Septic infrapatellar bursitis of left knee (Acute) Prepatellar bursitis of left knee (Acute) Varicose veins of left lower extremity with inflammation (Acute) Stiffness of left knee (Acute) Screening PSA (prostate specific antigen) (Acute) Dyslipidemia (Acute) Cellulitis (Acute) Current use of anticoagulant therapy (Acute) History of revision of total replacement of left knee joint (Acute ~04/2016) Abscess of knee, left (Acute) Moderate aortic stenosis (Acute) Persistent atrial fibrillation (Acute) HTN (hypertension) (Acute) Past Medical History Medical History Abscess of knee, left Moderate aortic stenosis Persistent atrial fibrillation Atherosclerosis of [place] coronary artery of [place] heart with angina pectoris Dyslipidemia Sleep apnea Reactive depression Anxiety HTN (hypertension) Family History Family History Other Brain cancer Surgical History Surgical History History of incision and drainage Hx of carpal tunnel repair Status post ablation of incompetent vein using laser (~01/2022) History of revision of total replacement of left knee joint (~04/2016) History of total left knee replacement (~11/2015) History of evacuation of hematoma (~05/2015) History of total right knee replacement (TKR) (~04/2015) History of Problems with Anesthesia: No Social History Social History Household Members: Family Housing: House Do you presently have visiting nurse or other home services: No Alcohol intake: current Alcohol intake frequency: a few times a month Patient Tobacco Use Status: Former Tobacco user Quit Date: 2016 Years Smoked: 46+/- e-Cigarette/Vaping Use: Never Used Second Hand Smoke Exposure: No Substance Use Type: Marijuana service: No Current occupational status: previously employed and retired 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 Current occupational exposures/hazards: No Cognitive needs: No Hearing needs: No Vision needs: Yes Meds Allergies Allergy/AdvReac Type Severity Reaction Status Date / Time No Known Allergies Allergy Verified 04/17/23 08:03 [No Known Allergies*] Home Medications Medication Instructions Recorded Confirmed Last Taken Type hydrocodone 5 mg-acetaminophen 325 1 - 2 tab PO Q4H PRN pain 02/20/23 04/17/23 Unknown History mg tablet cetirizine 10 mg capsule (Zyrtec) 10 mg PO DAILY PRN 04/03/23 04/17/23 Unknown History Exam Exam Date and Time: April 17, 2023 1013 Height,Weight and Vital Signs: Height 6 ft Weight 146.51 kg Narrative Narrative: EKG 03/2023 atrial fibrillation, can not rule out anterior infarct, no change from prior EKG 02/09/2023, rate 84, QTC 413 millisecond Per 03/2023 cardiology visit Last echocardiogram done 05/01/2022 showing EF 60-65%, severe aortic stenosis with mean gradient 36 mmHg, aortic valve area 0.9 centimeter sq. A follow-up echocardiogram done 11/19/2022 showed EF 60-65%, moderate to severe aortic stenosis with mean gradient 23 mmHg an aortic valve area 1.03 centimeter sq. Nuclear stress test was done on 05/07/2021 showing normal myocardial perfusion imaging. Assessment and Plan Assessment Anesthesia Assessment: Chart Reviewed Final Anesthetic Review History of Problems with Anesthesia: No
--- NOTE | 2023-04-21 15:00 | PC.NURSE ---
pt in rapid afib, hr130's-170-s sob w/minimal activity 2 assist into bed. grunting with respirations. sats 100% on Ra. lscta. placed on 2L n/c for oral cyanosis. Iv labs drawn (1st tech unable to draw) 2nd iv team iv new #[address] nation notified. 12 lead ekg done & confirmed afib. decision to go to ED. call to ED [phone], for doc to doc. metoprolol iv 5mg given by Dr. Bowman 1V @ 5715. Doc to doc report given by Dr. Bowman. r 132/81 hr 120's afib 2lNc transport on o2 and onitor to ED19
--- NOTE | 2023-04-21 15:26 | MHC.SHP ---
Pre-Procedural Eval Section A Date of Service: 04/21/23 Section B Chief Complaint: Other fecal abnormalities Details of Present Illness: Pt was noted to be in rapid Afib with rates to 160s with stable pressures. Did take his metoprolol this AM. Pt was evaluated by anesthesia provider and due to significant and rapid AFib, recommendation was made to transfer the pt to ER for further management. Colonoscopy was canceled. This is to be rescheduled NO LATER THAN JUN since his cologuard was done in December which was positive. Allergies: Allergies Allergy/AdvReac Type Severity Reaction Status Date / Time No Known Allergies Allergy Verified 04/17/23 08:03 [No Known Allergies*] Plan Diagnosis/Plan: Change I have reviewed the history and physical and performed a pertinent physical examination on my patient. procedure canceled as above. Time Spent With Patient Time: Total time managing care of this patient today ____ minutes.
--- NOTE | 2023-04-21 15:33 | PC.NURSE ---
rn to rn report given to Clau by this RN. Call palced to pt's sister & updated (eliseo)
--- NOTE | 2023-04-21 15:33 | HO.ANESPROP2 ---
[facility] Active Problems Active Problems: All Active Problems (Updated 04/03/23 @ 09:05 by Haylee Mcneal NP-C) Preop cardiovascular exam (Acute) Post-nasal drip (Acute) Leg injury (Acute) Microscopic hematuria (Acute) Cellulitis of leg (Acute) Positive colorectal cancer screening using Cologuard test (Acute) Activity intolerance (Acute) Morbid obesity (Acute) Cellulitis of left leg (Acute) History of carpal tunnel surgery of right wrist (Acute) Carpal tunnel syndrome of right wrist (Acute) Severe aortic stenosis (Acute) Peeling skin (Acute) Hx of basal cell carcinoma (Acute) Lymphedema (Acute) Hand numbness (Acute) Obesity due to excess calories without serious comorbidity (Acute) Septic infrapatellar bursitis of left knee (Acute) Prepatellar bursitis of left knee (Acute) Varicose veins of left lower extremity with inflammation (Acute) Stiffness of left knee (Acute) Screening PSA (prostate specific antigen) (Acute) Dyslipidemia (Acute) Cellulitis (Acute) Current use of anticoagulant therapy (Acute) History of revision of total replacement of left knee joint (Acute ~04/2016) Abscess of knee, left (Acute) Moderate aortic stenosis (Acute) Persistent atrial fibrillation (Acute) HTN (hypertension) (Acute) Past Medical History Medical History Abscess of knee, left Moderate aortic stenosis Persistent atrial fibrillation Atherosclerosis of [place] coronary artery of [place] heart with angina pectoris Dyslipidemia Sleep apnea Reactive depression Anxiety HTN (hypertension) Family History Family History Other Brain cancer Family history of problems with anesthesia: No Surgical History Surgical History History of incision and drainage Hx of carpal tunnel repair Status post ablation of incompetent vein using laser (~01/2022) History of revision of total replacement of left knee joint (~04/2016) History of total left knee replacement (~11/2015) History of evacuation of hematoma (~05/2015) History of total right knee replacement (TKR) (~04/2015) History of Problems with Anesthesia: No Social History Social History Household Members: Family Housing: House Do you presently have visiting nurse or other home services: No Alcohol intake: current Alcohol intake frequency: a few times a month Patient Tobacco Use Status: Former Tobacco user Quit Date: 7 years Years Smoked: 46+/- e-Cigarette/Vaping Use: Never Used Second Hand Smoke Exposure: No Substance Use Type: Marijuana service: No Current occupational status: previously employed and retired 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 Current occupational exposures/hazards: No Cognitive needs: No Hearing needs: No Vision needs: Yes Meds Allergies Allergy/AdvReac Type Severity Reaction Status Date / Time No Known Allergies Allergy Verified 04/17/23 08:03 [No Known Allergies*] Active Medications: Current Medications Lactated Ringer's (Lr) 1,000 mls @ 100 mls/hr IVCONT .Q10H MONA Last Admin: 04/21/23 14:59 Dose: 100 mls/hr Home Medications Medication Instructions Recorded Confirmed Last Taken Type hydrocodone 5 mg-acetaminophen 325 1 - 2 tab PO Q4H PRN pain 02/20/23 04/21/23 Unknown History mg tablet cetirizine 10 mg capsule (Zyrtec) 10 mg PO DAILY PRN allergies 04/03/23 04/21/23 Unknown History Exam Exam Date and Time: April 21, 2023 1533 Height,Weight and Vital Signs: Height 6 ft Weight 146.51 kg Pertinent Lab Results Pertinent Lab Results: Laboratory Tests 04/21/23 14:53 PT 19.3 H INR 1.6 H D Airway Mallampati Class: III TM Dist: >3cm Neck ROM: Full Heart: rapid pulse, rapid atrial fibrillation HR 132-161 ; Lungs: CTA Assessment and Plan Final Anesthetic Review Family History of Problems with Anesthesia: No History of Problems with Anesthesia: No NPO: Yes ASA Class: III Final Preanesthetic Review: Meds/Allgs Chart Reviewed, Anes Risks/Benef Reviewed and DNR Form (If Appl.) Anesthetic Plan Anesthetic Plan: MAC: and Other (Pt. is having rapid atrial fibrillation/ HR 132-164/, has no CP, SOB, but moderate Aortic stenosis. I gave 5 mg. Metoprolol iv before he was taken to ER for further treatment of a fib, report given to ER doctor., colonoscopy got cancelled.)
== END ==
PROVIDERS: PCP Nurse Practitioner Family; Visit Provider Internal Medicine
DX: R19.5 Other fecal abnormalities (principal); Z53.09 Procedure and treatment not carried out because of other contraindication; I48.0 Paroxysmal atrial fibrillation; I10 Essential (primary) hypertension
CPT/HCPCS: 36415; 85610; 93005

== ENCOUNTER 2023-04-21 15:26 | Emergency (ER) | payer MEDICARE, SELFPAY ==
[2023-04-21 15:42] VITALS: BP 152/82; PULSE 118; RESP 22; TEMP 36.6; O2SAT 98; BMI 42.4
[2023-04-21 16:05] VITALS: BP 135/84; PULSE 107; RESP 16; O2SAT 99
--- NOTE | 2023-04-21 16:21 | ED.ARRPALP ---
HPI - Arrhythmia/Palpitations General Chief Complaint: Arrhythmia/Palpitations Stated Complaint: Irregular heart beat Time Seen by Provider: 04/21/23 15:44 History of Present Illness HPI narrative: Patient is a 72-year-old male presents today with having had his colonoscopy cancel because patient was having atrial fibrillation has a history of atrial fibrillation currently on metoprolol 50 mg twice a day. Patient also has a history of being on Coumadin. Postop for the colonoscopy and currently patient is on Lovenox. He did not have any symptoms. Was getting ready for the colonoscopy when anesthesia noted patient had an increase in heart rate. Up to 150. 5 mg of metoprolol was given prior to patient's arrival in the emergency department. There was sent down for further evaluation. No chest pain or shortness breath no dizziness no nausea no vomiting patient took his metoprolol 50 mg this morning. He has been compliant with his medication. Related Data Home Medications Medication Instructions Recorded Confirmed hydrocodone 5 mg-acetaminophen 325 1 - 2 tab PO Q4H PRN pain 02/20/23 04/21/23 mg tablet cetirizine 10 mg capsule (Zyrtec) 10 mg PO DAILY PRN allergies 04/03/23 04/21/23 Previous Rx's Medication Instructions Recorded betamethasone dipropionate 0.05 % 1 appl topical DAILY PRN skin 09/12/21 topical cream irritation 14 days #45 grams hydrocortisone 2.5 % topical cream 1 appl topical BID PRN skin 11/26/21 irritation #20 grams metoprolol tartrate 50 mg tablet 50 mg PO BID 90 days #180 tabs 05/12/22 warfarin 2.5 mg tablet 1.25 mg PO DAILY #90 tabs 12/15/22 atorvastatin 10 mg tablet 10 mg PO BEDTIME 90 days #90 tabs 12/16/22 furosemide 40 mg tablet (Lasix) 40 mg PO DAILY #30 tabs 03/03/23 bisacodyl 5 mg tablet,delayed 10 mg (2 x 5 mg) PO ONCE 1 day #2 04/06/23 release (Dulcolax (bisacodyl)) tabs polyethylene glycol 3350 17 238 g PO ONCE 1 day #238 grams 04/06/23 gram/dose oral powder (Miralax) fluticasone propionate 50 1 spray intranasal DAILY #16 grams 04/13/23 mcg/actuation nasal spray,suspension enoxaparin 150 mg/mL subcutaneous 150 mg subcut Q12H #12 ea 04/17/23 syringe Allergies Allergy/AdvReac Type Severity Reaction Status Date / Time No Known Allergies Allergy Verified 04/17/23 08:03 [No Known Allergies*] Review of Systems Review of Systems: No fever no chills no chest pain or diaphoresis Yes all other systems are reviewed and are negative [facility] Past Medical History Medical History Abscess of knee, left Moderate aortic stenosis Persistent atrial fibrillation Atherosclerosis of [place] coronary artery of [place] heart with angina pectoris Dyslipidemia Sleep apnea Reactive depression Anxiety HTN (hypertension) Surgical History History of incision and drainage Hx of carpal tunnel repair Status post ablation of incompetent vein using laser (~01/2022) History of revision of total replacement of left knee joint (~04/2016) History of total left knee replacement (~11/2015) History of evacuation of hematoma (~05/2015) History of total right knee replacement (TKR) (~04/2015) Family History Family History Other Brain cancer Social History Social History Household Members: Family Housing: House Do you presently have visiting nurse or other home services: No Alcohol intake: current Alcohol intake frequency: 0-2 drinks per day Patient Tobacco Use Status: Former Tobacco user Quit Date: 7 years Years Smoked: 46+/- e-Cigarette/Vaping Use: Never Used Second Hand Smoke Exposure: No Substance Use Type: Marijuana Advance Directives Date on File: 03/05/22 service: No Current occupational status: previously employed and retired 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 Current occupational exposures/hazards: No Cognitive needs: No Hearing needs: No Vision needs: Yes Physical Exam Vital Signs: Vital Signs: Last Vital Signs Temp 98.3 F 04/21/23 18:39 Pulse 152 H 04/21/23 20:52 Resp 18 04/21/23 20:52 BP 122/51 L 04/21/23 20:52 Pulse Ox 98 04/21/23 20:52 O2 Del Method Room Air 04/21/23 20:52 BMI result Body Mass Index 42.4 Appearance: Alert. Oriented X3. No acute distress. Eyes: Pupils equal, round and reactive to light. ENT: Pharynx normal. Neck: Normal inspection. Neck supple. No lymph nodes noted. No crepitus CVS: Normal heart rate and rhythm. Pulses normal. Normal S1 and S2 Respiratory: No respiratory distress. Breath sounds normal. No Wheezing. No rales Abdomen: Soft and nontender. No rigidity. No distention. good BS x4 Skin: Skin warm and dry. Normal skin color. Normal skin turgor. Extremities: No lower extremity edema. Neurovascular intact to all extremities. No Lacerations. No Rash Neuro: Oriented X 3. No motor deficit. No sensory deficit. Moving all extermities. No slurred speech Medications Administered Discontinued Medications Generic Name Dose Route Start Last Admin Trade Name Freq PRN Reason Stop Dose Admin Metoprolol Tartrate 5 mg 04/21/23 16:19 04/21/23 17:09 Metoprolol Tartrate 5 Mg/5 Ml Vial IVPUSH 04/21/23 16:20 5 mg ONCE ONE Administration Metoprolol Tartrate 5 mg 04/21/23 18:50 04/21/23 19:11 Metoprolol Tartrate 5 Mg/5 Ml Vial IVPUSH 04/21/23 18:51 5 mg ONCE ONE Administration Metoprolol Tartrate 100 mg 04/21/23 20:38 04/21/23 20:51 Metoprolol Tartrate 100 Mg Tablet PO 04/21/23 20:39 100 mg ONCE ONE Administration Protocol Patient in atrial fibrillation. Heart rate is 100-120 at this point. Additional 1 dose of metoprolol 5 mg was given. Will monitor very carefully. Labs are ordered. In no distress. Medical Decision Making Medical Decision Making MDM Narrative: Patient is 72 years old sent to the emergency department for having increase in heart rate likely secondary to atrial fibrillation has a history of atrial fibrillation. Patient was getting a colonoscopy when anesthesiologist prior to the procedure noted patient to have an increased heart rate sent him down to the ED for further evaluation. Patient was given 2 doses of metoprolol here. Heart rate came down to approximately 100. His case is discussed with the columnist Dr. Dumont. Will follow-up with patient on an outpatient basis. Agree to increase the dose of p.o. medication to 100 mg metoprolol tonight. Start on 100 mg metoprolol in the morning 50 mg at night. To follow-up with Cardiology on an outpatient basis. Differential Diagnosis Differential Diagnoses: The differential diagnosis associated with the presentation includes Atrial fibrillation rate not controlled Admission/Observation Consideration of admission/observation: Escalation of care including admission/observation considered Rate came down patient is well-appearing cardiology okay with discharge Consult Healthcare Provider Management of the patient was discussed with: Intermediate Card Tender Cardiology Lab Data MDM Lab Attestation statement: I reviewed the patient's lab results. 04/21/23 17:07 04/21/23 17:07 Labs: Lab Results 04/21/23 Range/Units 17:07 WBC 8.2 (4.8-10.8) X10*3/uL RBC 4.66 (4.60-5.80) X10*6/uL Hgb 14.2 (14.0-18.0) g/dl Hct 42.0 (42.0-52.0) % MCV 90.1 (80.0-98.0) fL MCH 30.5 (27.0-33.0) pg MCHC 33.8 (31.0-36.0) g/dl RDW 14.0 (11.0-16.0) % Plt Count 214 (160-400) X10*3/uL MPV 9.2 L (9.4-12.4) fL Immature Gran % (Auto) 0.4 (0.0-0.4) % Neut % (Auto) 68.2 (45-73) % Lymph % (Auto) 18.3 L (20-40) % [place] % (Auto) 10.7 (2-11) % Eos % (Auto) 1.7 (0-4) % Baso % (Auto) 0.7 (0-2) % Lymph # (Auto) 1.5 (1.2-4.9) X10*3/uL [place] # (Auto) 0.9 (0.1-1.2) X10*3/uL Eos # (Auto) 0.1 (0.0-0.4) X10*3/uL Baso # (Auto) 0.1 (0.0-0.2) X10*3/uL Abs Immat Gran (auto) 0.03 (0.00-0.03) X10*3/uL Absolute Neuts (auto) 5.6 (2.0-8.3) x10*3/uL Absolute Nucleated RBC 0.000 (0.0-0.012) X10*3/uL Nucleated RBC % (auto) 0.0 (0.0-0.2) /100WBC Sodium 140 (135-145) mmol/L Potassium 4.7 (3.3-5.1) mmol/L Chloride 104 (96-108) mmol/L Carbon Dioxide 25 (22-29) mmol/L Anion Gap 16 (12-20) BUN 14 (9-16) mg/dL Creatinine 0.93 (0.5-1.4) mg/dL Estim Creat Clear Calc 106.3 Estimated GFR > 60 Random Glucose 91 (60-115) mg/dL Calcium 9.8 (8.4-10.2) mg/dL Total Bilirubin 1.0 (0.0-1.0) mg/dL Direct Bilirubin 0.4 (0.0-0.5) mg/dL AST 32 (5-37) U/L ALT 19 (0-40) U/L Alkaline Phosphatase 74 (39-117) U/L Troponin I High Sens 4.8 D (<3.5-35.0) ng/L Total Protein 7.8 (6.5-8.0) g/dL Albumin 3.9 (3.5-5.0) g/dL Lipase 14 (8-78) U/L Independent Interpretation I performed an independent interpretation of an: EKG Interpretation: My interpretation patient's EKG showed an atrial fibrillation pattern heart rate is approximately 120 QRS is normal QTC is normal Independent Historian Clinical information obtained from an independent historian. History obtained from or confirmed by: Other Discussed with anesthesiologist about patient's history. External Record Review Patient's anesthesia record reviewed Chronic Conditions Patient?s care impacted by: Hypertension History of aortic stenosis. History of atrial fibrillation Discharge Plan Discharge Clinical Impression: Atrial fibrillation Patient Disposition: Home, Self-Care Instructions: A-fib (Atrial Fibrillation) (ED) Additional Instructions: Please please take 2 tablet of the metoprolol in the morning. One tablet of metoprolol at night Prescriptions: No Action betamethasone dipropionate 0.05 % cream 1 appl topical DAILY PRN (Reason: skin irritation) 14 Days Qty: 45 0RF hydrocortisone 2.5 % cream 1 appl topical BID PRN (Reason: skin irritation) Qty: 20 0RF metoprolol tartrate 50 mg tablet 50 mg PO BID 90 Days Qty: 180 3RF warfarin 2.5 mg tablet 1.25 mg PO DAILY Qty: 90 1RF Protocol: Dose Management Condition: Thursday (Week One) Dose/Route: 1.25 mg Instruction: 0.5 x 2.5 mg tablets Condition: Thursday Dose/Route: 1.25 mg Instruction: 0.5 x 2.5 mg tablets Condition: Thursday Dose/Route: 1.25 mg Instruction: 0.5 x 2.5 mg tablets Condition: Thursday Dose/Route: 1.25 mg Instruction: 0.5 x 2.5 mg tablets Condition: Dose/Route: 0 mg Instruction: 0 tablets Condition: Thursday Dose/Route: 0 mg Instruction: 0 tablets Condition: Thursday Dose/Route: 0 mg Instruction: 0 tablets Condition: Thursday (Week Two) Dose/Route: 0 mg Instruction: 0 tablets Condition: Thursday Dose/Route: 0 mg Instruction: 0 tablets Condition: Thursday Dose/Route: 2.5 mg Instruction: 1 x 2.5 mg tablet Condition: Thursday Dose/Route: 2.5 mg Instruction: 1 x 2.5 mg tablet Condition: Dose/Route: 1.25 mg Instruction: 0.5 x 2.5 mg tablets Condition: Thursday Dose/Route: 1.25 mg Instruction: 0.5 x 2.5 mg tablets Condition: Thursday Dose/Route: 1.25 mg Instruction: 0.5 x 2.5 mg tablets Protocol Text: Adjustment Start Date: Thursday04/17/23 INR Value: Pending INR Date: 04/17/23 Recheck Date: 05/01/23 Additional Instructions: HOLD WARFARIN PER MD ORDERS, RESUME WARFARIN SAME DAY PROCEDURE UNLESS MD INTRUCTS TO WAIT, START WITH 2.5MG X 2 DAYS THEN 1.25MG DAILY, AVOID GREENS X 5 DAYS, EAT FOODS TO HELP RAISE THE INR. Rx Instructions: Adjust dosing as needed per Anticoagulation Clinic instructions. atorvastatin 10 mg tablet 10 mg PO BEDTIME 90 Days Qty: 90 1RF bisacodyl [Dulcolax (bisacodyl)] 5 mg tablet,delayed release (DR/EC) 10 mg PO ONCE 1 Days Qty: 2 0RF Rx Instructions: take at noon the day before colonoscopy polyethylene glycol 3350 [Miralax] 17 gram/dose powder 238 g PO ONCE 1 Days Qty: 238 0RF Rx Instructions: Take as directed by mouth the day before your procedure. fluticasone propionate 50 mcg/actuation spray,suspension 1 spray intranasal DAILY Qty: 16 2RF Rx Instructions: administer into each nostril enoxaparin 150 mg/mL syringe 150 mg subcut Q12H Qty: 12 0RF Rx Instructions: Postprocedure: begin as soon as told to by GI surgeon, stopping when therapeutic INR at coumadin clinic furosemide [Lasix] 40 mg tablet 40 mg PO DAILY Qty: 30 1RF Zyrtec 10 mg capsule 10 mg PO DAILY PRN (Reason: allergies) hydrocodone-acetaminophen 5-325 mg tablet 1 - 2 tab PO Q4H PRN (Reason: pain) Referrals: Reji Delgado FNP-CACHORRO [Primary Care Provider] - 2 days Tutu Daigle MD [Physician] - 04/23/23
--- NOTE | 2023-04-21 17:13 | PC.NURSE ---
pt remains in afib on monitor low 100's-110's. medicated per the MAR, lab work obtained by pct. denies any pain at this time. call marie within reach
[2023-04-21 17:27] LABS: Alanine Aminotransferase 19 U/L (0-40); Albumin Level 3.9 g/dL (3.5-5.0); Alkaline Phosphatase 74 U/L (39-117); Anion Gap 16 (12-20); Aspartate Amino Transferase 32 U/L (5-37); Bilirubin Direct 0.4 mg/dL (0.0-0.5); Blood Urea Nitrogen 14 mg/dL (9-16); Calcium 9.8 mg/dL (8.4-10.2); Carbon Dioxide 25 mmol/L (22-29); Chloride 104 mmol/L (96-108); Creatinine Clr Calc Pharmacy 106.3; Estimated Glomerular Filt Rate > 60; Glucose Random 91 mg/dL (60-115); Lipase 14 U/L (8-78); Potassium 4.7 mmol/L (3.3-5.1); Sodium 140 mmol/L (135-145); Total Protein 7.8 g/dL (6.5-8.0)
[2023-04-21 18:39] VITALS: BP 125/93; PULSE 114; RESP 16; TEMP 36.8; O2SAT 99
[2023-04-21 19:08] VITALS: BP 103/59; PULSE 117; RESP 18; O2SAT 95
--- NOTE | 2023-04-21 19:12 | PC.NURSE ---
Addendum entered by Gretchen Shannon 04/21/23 19:16: pt lung sounds clear bilaterally. Original Note: this rn assumed care of pt. pt currently in afib between 112-120. pt denies palpitations, chest pain, sob at this time. pt reports no pain. pt medicated per mar at this time.
[2023-04-21 20:52] VITALS: BP 122/51; PULSE 152; RESP 18; O2SAT 98
== END 2023-04-21 21:39 | disposition home or self-care (01) ==
PROVIDERS: Emergency Provider Emergency Medicine Emergency Medical Services; PCP Nurse Practitioner Family
DX: I49.9 Cardiac arrhythmia, unspecified (principal); R00.2 Palpitations; I48.91 Unspecified atrial fibrillation; Z79.899 Other long term (current) drug therapy; Z87.891 Personal history of nicotine dependence
CPT/HCPCS: 36415; 80048; 80076; 83690; 84484; 85025; 93005; 96374; 96376; 99284; 99285

== ENCOUNTER 2023-05-01 08:01 | Outpatient (AMB) | payer MEDICARE, SELFPAY ==
[2023-05-01 08:10] LABS: Prothrombin Time Whole Bld POC 25.1 sec (11.1-13.5); ~PT, ~INR - Anti Coag Clinic 2.1 (0.9-1.1)
--- NOTE | 2023-05-01 08:19 | MHC.OFFVISCO ---
Intake Intake Visit Reasons: Anticoagulation Allergies No Known Allergies [No Known Allergies*] Allergy (Verified 05/01/23 08:04) Medication List - Last Reconciled 05/01/23 by Sarah Barreto RN atorvastatin 10 mg PO BEDTIME 90 days betamethasone dipropionate 0.05% 1 appl topical DAILY PRN 14 days bisacodyl (Dulcolax (bisacodyl)) 10 mg (2 x 5 mg) PO ONCE 1 day cetirizine (Zyrtec) 10 mg PO DAILY PRN enoxaparin 150 mg subcut Q12H fluticasone propionate 50 mcg/actuation 1 spray intranasal DAILY furosemide (Lasix) 40 mg PO DAILY hydrocodone-acetaminophen 5-325 mg 1 - 2 tabs PO Q4H PRN hydrocortisone 2.5% 1 appl topical BID PRN metoprolol tartrate 50 mg orally 2 tabs in am and 1 in pm; 90 days polyethylene glycol 3350 (Miralax) 238 grams PO ONCE 1 day warfarin 1.25 mg See Protocol PO DAILY Nursing Note INR: 2.1 in therapeutic range Medications and supplements reviewed colonoscopy canceled due to elevated b/p metoprolol was increased he went through the prep and held warfarin, he resumed his warfarin with booster doses and diet instruction, will follow same protocol - will give lovenox instruction when rebooked, Denies any signs and symptoms of bleeding or bruising or clotting. Bleeding, bruising, clotting discussed Nutritional guidance given resume usual diet Dose: complete this week dose that included booster dose and a dose today(thursday) , then resume 1.25mg x 6 days/ hold 1 day F/U INR: 1month or per colonoscopy rebooking Patient verbalizes understanding of instructions given Anti-Coag Initial Assessment Social Hx Patient Tobacco Use Status: Former Tobacco user Quit Date: 7 years alcohol intake: current Alcohol intake frequency: 0-2 drinks per day Coding Level of Care Code Est Patient Level 1 Diagnoses Current use of anticoagulant therapy Z79.01 Assessment & Plan Assessment & Plan (1) Current use of anticoagulant therapy: Code(s): 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
== END 2023-05-01 08:24 | disposition home or self-care (01) ==
LOC: HO.ACS 08:01
PROVIDERS: PCP Nurse Practitioner Family; Visit Provider Internal Medicine
DX: Z79.01 Long term (current) use of anticoagulants (principal)

== ENCOUNTER → 2023-05-01 08:01 | Outpatient (BNVA) | payer MEDICARE, SELFPAY | PROVIDERS: PCP Nurse Practitioner Family; Visit Provider Internal Medicine | DX: I48.19 Other persistent atrial fibrillation (principal); Z79.01 Long term (current) use of anticoagulants; Z51.81 Encounter for therapeutic drug level monitoring | CPT/HCPCS: 85610; 99211 ==

== ENCOUNTER → 2023-05-05 09:07 | Outpatient (BNVA) | payer MEDICARE, SELFPAY | PROVIDERS: PCP Nurse Practitioner Family; Visit Provider Nurse Practitioner Family ==

== ENCOUNTER 2023-05-22 09:18 | Outpatient (AMB) | payer MEDICARE, SELFPAY ==
--- NOTE | 2023-05-22 09:21 | A.OFFVIS_ITS ---
Intake Intake Visit Reasons: Microscopic Hematuria Intake Note: NEW Patient presents today to established treatment for Hematuria: Meds- None Allergies to Antibiotic- No Known Allergies Blood Thinner- Warfarin & Furosemide Big Data Developer Required: No Accompanied by: Significant Other Allergies No Known Allergies [No Known Allergies*] Allergy (Verified 05/22/23 09:34) HPI HPI Comments History of Present Illness Details Andre is a 72-year-old male who presents today to the office for an evaluation of microscopic hematuria. 05/22/2023-- He presents today for an evaluation of microscopic hematuria. The patient has a past medical history significant for coronary artery disease, atrial fibrillation, Obesity and hypertension. I reviewed urine cytology results from 03/13/2023 revealed negative. I reviewed the US retroperitoneum results from 04/06/2023 revealed a possible 5 mm left upper pole kidney stone versus vascular calcification, right kidney is within the normal limits. I reviewed the PSA results from 02/23/2023 revealed 0.52 ng/mL. Patient has had urinalysis 02/23/23 which showed 3-5 red cells per high power field. He is a former smoker, states that he discontinued smoking about 5 years ago, prior, he used to smoke about a pack a day for 40-45 years. He denies any urinary symptoms at this time. Evaluation today--UA--Leukocytes: negative; proteinuria: 30 mg/dL; blood: negative. Plan: CT urogram was ordered. I will repeat urinalysis on follow-up if there is persistent proteinuria will refer to nephrology. Follow-up office Cystoscopy. [facility] Medical History Abscess of knee, left Moderate aortic stenosis Persistent atrial fibrillation Atherosclerosis of [place] coronary artery of [place] heart with angina pectoris Dyslipidemia Sleep apnea Reactive depression Anxiety HTN (hypertension) Surgical History History of incision and drainage Hx of carpal tunnel repair Status post ablation of incompetent vein using laser (~01/2022) History of revision of total replacement of left knee joint (~04/2016) History of total left knee replacement (~11/2015) History of evacuation of hematoma (~05/2015) History of total right knee replacement (TKR) (~04/2015) Family History Other Brain cancer Social History Household Members: Family Housing: House Do you presently have visiting nurse or other home services: No Alcohol intake: current Alcohol intake frequency: 0-2 drinks per day Patient Tobacco Use Status: Former Tobacco user Quit Date: 7 years Years Smoked: 46+/- e-Cigarette/Vaping Use: Never Used Second Hand Smoke Exposure: No Substance Use Type: Marijuana Advance Directives Date on File: 03/05/22 service: No Current occupational status: previously employed and retired 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 Current occupational exposures/hazards: No Cognitive needs: No Hearing needs: No Vision needs: Yes Review of Systems Const All systems reviewed & are unremarkable except as noted in HPI and below Reports no additional complaints Eyes Reports no additional complaints ENT Reports no additional complaints Card Denies dyspnea Resp Denies cough and Denies dyspnea GI Reports no additional complaints Musc Reports no additional complaints Skin/Breast Denies rash and Denies unusual bruising Neuro Reports no additional complaints Psych Reports no additional complaints Endo Reports no additional complaints Ubaldo/Lymph Reports no additional complaints Aller/Immun Reports no additional complaints Physical Exam Const General: healthy appearing, no acute distress and well developed Nutritional Appearance: overweight Orientation/consciousness: patient oriented x3 HEENT Head: Yes normocephalic and Yes atraumatic Eyes Conjunctivae: conjunctivae normal Neck Neck: Yes normal visual inspection Chest Chest palpation & inspection: normal inspection of the chest Resp Effort & Inspection: normal respiratory effort Cardio Rate: regular rate GI Inspection: Yes normal to inspection Skin General skin exam: no rashes or lesions noted Neuro General: patient oriented x3 Psych Appearance: grossly normal Affect: normal affect Results AMB Urinalysis, Automated UA Leukoctes 0 Sherry/uL Last Edit by BRII Smith on 05/22/23 09:33 UA Nitrite Negative Last Edit by Mike Kruse Isaiah on 05/22/23 09:33 UA Urobilinogen 0.2 mg/dL Last Edit by Mike Kruse Isaiah on 05/22/23 09:3 3 UA Protein 30 mg/dL Last Edit by Mike Kruse [facility] on 05/22/23 09:33 1+ Mike Kruse 05/22/23 09:33 UA pH 6.0 Last Edit by Mike Kruse [facility] on 05/22/23 09:33 UA Blood 0 Christian/uL Last Edit by Mike Kruse [facility] on 05/22/23 09:33 UA Specific Gibson 1.025 Last Edit by Mike Kruse Isaiah on 05/22/23 09: 33 UA Ketone Negative Last Edit by Mike Kruse [facility] on 05/22/23 09:33 UA Bilirubin 0 mg/dL Last Edit by Mike Kruse [facility] on 05/22/23 09:33 UA Glucose 0 mg/dL Last Edit by Mike Kruse [facility] on 05/22/23 09:33 Results Reviewed Results Reviewed: Laboratory Last Values Urine pH (Auto) 6.0 05/22/23 09:31 Specific Gibson (Auto) 1.025 05/22/23 09:31 Urine Protein (Auto) 30 mg/dL 05/22/23 09:31 Glucose (UA)(Auto) 0 mg/dL 05/22/23 09:31 Urine Ketones (Auto) Negative 05/22/23 09:31 Urine Blood (Auto) 0 Christian/uL 05/22/23 09:31 Urine Nitrite (Auto) Negative 05/22/23 09:31 Urine Bilirubin (Auto) 0 mg/dL 05/22/23 09:31 Urine Urobilinogen (Auto) 0.2 mg/dL 05/22/23 09:31 Leukocyte Esterase (Auto) 0 Sherry/uL 05/22/23 09:31 Date of Service: 04/06/23 EXAMINATION: US RETROPERITONEAL COMPLETE (RENAL) CLINICAL INFORMATION: Other microscopic hematuria. COMPARISON: None. FINDINGS: RIGHT KIDNEY: 12.1 x 5.0 x 6.4 cm (SAG x AP x TRV). The kidney is normal in size, contour, and echogenicity. Renal cortical thickness is normal. No calculi or focal parenchymal lesions. No hydronephrosis. LEFT KIDNEY: 13.3 x 5.4 x 6.4 cm (SAG x AP x TRV). The kidney is normal in size, contour, and echogenicity. Renal cortical thickness is normal. No calculi or focal parenchymal lesions. No hydronephrosis. There is an echogenic reflector with twinkle artifact measuring approximately 5 mm. BLADDER: Well distended and normal. Bilateral ureteral jets are demonstrated. Prevoid bladder volume is 399 mL. Postvoid bladder volume is 31 mL. ADDITIONAL FINDINGS: The prostate is not visualized. IMPRESSION: Questionable 5 mm left upper renal calculus versus vascular calcification. Assessment & Plan Assessment & Plan (1) Microscopic hematuria: Code(s): R31.29 - Other microscopic hematuria (2) History of nicotine use: Code(s): Z87.891 - Personal history of nicotine dependence (3) Proteinuria: Code(s): R80.9 - Proteinuria, unspecified Plan CT urogram was ordered. I will repeat urinalysis on follow-up if there is persistent proteinuria will refer to nephrology. Follow-up office Cystoscopy. Orders: Orders AMB Urinalysis Automated Today Z13.9 - Encounter for screening, unspecified CT urogram Today R31.9 - Hematuria, unspecified Patient Instructions: The patient had an opportunity to ask questions regarding treatment plan. All questions were answered. Imaging, Laboratory studies and physical exam results were discussed and reviewed in detail. No major barriers to understanding were identified. The patient expressed understanding and agreement with the above treatment plan. The patient is aware they should contact our office by phone for worsening of their current condition or the appearance of new symptoms. Compliance is encouraged with any medications and followup testing that is ordered. It is a privilege to be allowed the opportunity to participate in the urologic care of your patient. If you have any questions or concerns regarding treatment for the above conditions please do not hesitate to contact me. The office telephone contact is [phone]. This note is constructed in part using voice recognition software. While every effort has been made to ensure accuracy warehouse freight handler errors may have been included. Yours sincerely, Rama Shearer MD Coding Level of Care Code New Pt Level 4 (69543) Diagnoses Microscopic hematuria R31.29 History of nicotine use Z87.891 Proteinuria R80.9
== END 2023-05-22 10:06 | disposition home or self-care (01) ==
PROVIDERS: PCP Nurse Practitioner Family; Visit Provider Urology
DX: R31.29 Other microscopic hematuria (principal); Z87.891 Personal history of nicotine dependence; R80.9 Proteinuria, unspecified; Z13.9 Encounter for screening, unspecified
CPT/HCPCS: 99204

== ENCOUNTER → 2023-05-22 09:18 | Outpatient (BNVA) | payer MEDICARE, SELFPAY | PROVIDERS: PCP Nurse Practitioner Family; Visit Provider Urology | DX: R31.29 Other microscopic hematuria (principal); R80.9 Proteinuria, unspecified; Z87.891 Personal history of nicotine dependence | CPT/HCPCS: 81003; 99202 ==

== ENCOUNTER → 2023-05-28 07:52 | Outpatient (REF) | payer MEDICARE, SELFPAY ==
--- NOTE | 2023-05-28 07:56 | CA_ITS ---
Transthoracic Echocardiogram Patient (Last, First, Middle): Andre Tabor, Gender: Male Date of : 1950 Age: 72 Procedure Date: 05/28/2023 Procedure Type: Transthoracic Echocardiogram Location: OP Height: 182.88 cm Weight: 145.15 kg BSA: 2.60 m2 Heart Rate: 93 bpm BP: 138 / 88 mmHg Electronics Recycler: AMITA/LENORE Referring MD: Haylee Mcneal SURVEY QUESTIONNAIRE DESIGNERHanyC Symptoms: I35.0 - Nonrheumatic aortic (valve) stenosis Study Quality: Fair ECG Rhythm: Atrial Fibrillation Conclusions: - The left ventricular systolic function is normal. The visually estimated ejection fraction is between 65-70%. - There is moderate to severe aortic valve stenosis. Findings Procedure Information Contrast agent, definity, is being given per protocol without apparent complications. The quality of the study was technically difficult. The study quality is limited by patients body habitus. Left Ventricle Normal left ventricular cavity size. There is mildly increased left ventricular wall thickness. The left ventricular systolic function is normal. The visually estimated ejection fraction is between 65-70%. There is no evidence of regional wall motion abnormalities. Diastolic function is indeterminate on the basis of available data. Right Ventricle Normal right ventricular cavity size and systolic function. Atria The left atrium is mildly dilated. The right atrium is normal in size. Aortic Valve There is moderate calcification of the aortic valve. There is moderate to severe aortic valve stenosis. The peak aortic velocity is 2.94 m/s with a calculated peak gradient of 36 mmHg. The mean gradient is 21 mmHg. The aortic valve area is 1.10 cm2. There is trace (trivial) aortic valve regurgitation. Dimensionless index 0.27. Stroke volume index 30ml/m2. Lower than expected gradients due to reduced stroke volume. Mitral Valve There is mild mitral annular calcification. There is no mitral valve regurgitation. There is no mitral valve stenosis. Pulmonic Valve The pulmonic valve is likely normal. Tricuspid Valve Normal tricuspid valve structure. There is mild tricuspid valve regurgitation. There is no evidence of pulmonary hypertension. Great Vessels The asc aorta is normal in size. Venous The inferior vena cava is normal in size and collapses less than 50% with inspiration. Pericardium/Pleural There is no evidence of pericardial effusion. Prior Study Comparison No significant change compared to prior study dated: 11/19/2022. Measurements 2D Linear Measurements IVSd: 1.17 0.6-0.9/0.6-1.0 cm LVIDd: 4.64 3.9-5.3/4.2-5.9 cm LVIDd Index: 1.78 2.4-3.2/2.2-3.1 cm/m2 LVIDs: 2.79 2.0-3.6 cm LVPWd: 1.38 0.7-1.1 cm LA Diam: 4.80 2.7-3.8/3.0-4.0 cm LAIDs Index: 1.85 1.5-2.3 cm/m2 LV Mass: 282.67 67-162/88-224 g LV Mass Index: 108.72 43-95/49-115 g/m2 LVOT Diam: 2.40 3.0+(-)1.3 cm 2D Systolic Function EF 4C: 62.40 >55% EF 2C: 69.50 >55% EF BiP: 67.90 >55% Mitral Valve MV Pk E: 1.23 Aortic Valve AoV Pk Skip: 2.94 AoV Mn Skip: 2.06 AoV VTI: 0.62 AoV Pk Grad: 36.00 Aov Mn Grad: 21.00 JANIE Cont.VTI: 1.10 LVOT LVOT Pk Skip: 0.78 LVOT Mn Skip: 0.57 LVOT VTI: 0.17 LVOT Pk Grad: 2.00 LVOT Mn Grad: 1.00 LVOT Diam: 2.40 LVOT Area: 4.52 Diastolic Function MV Pk E: 1.23 Right Ventricle TAPSE (mm): 19.10 TVS' Skip: 13.20 Tricuspid Valve TR Pk Skip: 2.06 TR Pk Grad: 17.00 RA Press: 8.00 RVSP: 25.00 Great Vessels Aorta Sinus of Valsalva: 3.30 2.0-3.5 cm Ao Asc: 3.60 2.1-3.4 cm Pulmonary Valve PV Pk Skip: 0.96 Peak PV Grad: 4.00 Updated in Other Vendor System with Status of Final Nikita Hancock MD electronically signed on 05/30/2023 11:31:26 AM with status of Final
== END ==
LOC: HO.CARD 07:52
PROVIDERS: PCP Nurse Practitioner Family; Visit Provider Nurse Practitioner Family
DX: I35.0 Nonrheumatic aortic (valve) stenosis (principal); I48.19 Other persistent atrial fibrillation; I10 Essential (primary) hypertension
CPT/HCPCS: 93306; Q9957

== ENCOUNTER → 2023-05-28 07:56 | Outpatient (BNV) | payer MEDICARE, SELFPAY | PROVIDERS: PCP Nurse Practitioner Family; Visit Provider Internal Medicine | DX: I35.0 Nonrheumatic aortic (valve) stenosis (principal) | CPT/HCPCS: 93306 ==

== ENCOUNTER 2023-05-29 07:58 | Outpatient (AMB) | payer MEDICARE, SELFPAY ==
[2023-05-29 08:10] LABS: ~PT, ~INR - Anti Coag Clinic 2.7 (0.9-1.1)
--- NOTE | 2023-05-29 08:15 | MHC.OFFVISCO ---
Intake Intake Visit Reasons: Anticoagulation Allergies No Known Allergies [No Known Allergies*] Allergy (Verified 05/29/23 08:04) Medication List - Last Reconciled 05/29/23 by Sarah Barreto RN atorvastatin 10 mg PO BEDTIME 90 days betamethasone dipropionate 0.05% 1 appl topical DAILY PRN 14 days cetirizine (Zyrtec) 10 mg PO DAILY PRN fluticasone propionate 50 mcg/actuation 1 spray intranasal DAILY furosemide (Lasix) 40 mg PO DAILY hydrocodone-acetaminophen 5-325 mg 1 - 2 tabs PO Q4H PRN hydrocortisone 2.5% 1 appl topical BID PRN metoprolol tartrate 50 mg orally 2 tabs in am and 1 in pm; 90 days metoprolol tartrate 100 mg orally 150mg am/ 50mg pm; warfarin 1.25 mg See Protocol PO DAILY Nursing Note INR: 2.7] in therapeutic range Medications and supplements reviewed had a recent echo cardiogram- waiting results - no med changes at this time to hav CT of abd to assess renal and bladder ? microscopic blood in urine Denies any signs and symptoms of bleeding or bruising or clotting. 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
== END 2023-05-29 08:19 | disposition home or self-care (01) ==
LOC: HO.ACS 07:58
PROVIDERS: PCP Nurse Practitioner Family; Visit Provider Internal Medicine
DX: Z79.01 Long term (current) use of anticoagulants (principal)

== ENCOUNTER → 2023-05-29 07:58 | Outpatient (BNVA) | payer MEDICARE, SELFPAY | PROVIDERS: PCP Nurse Practitioner Family; Visit Provider Internal Medicine | DX: I48.19 Other persistent atrial fibrillation (principal); Z79.01 Long term (current) use of anticoagulants; Z51.81 Encounter for therapeutic drug level monitoring | CPT/HCPCS: 85610; 99211 ==

== ENCOUNTER 2023-06-15 08:54 | Outpatient (REF) | payer MEDICARE, SELFPAY ==
[2023-06-15 11:56] LABS: Blood Urea Nitrogen 21 mg/dL (9-16); Estimated Glomerular Filt Rate 57
== END 2023-06-15 08:55 | disposition home or self-care (01) ==
LOC: HO.HMGCLDS 08:54
PROVIDERS: PCP Nurse Practitioner Family; Visit Provider Urology
DX: R31.9 Hematuria, unspecified (principal); R80.9 Proteinuria, unspecified
CPT/HCPCS: 36415; 82565; 84520

== ENCOUNTER 2023-06-18 08:52 | Outpatient (AMB) | payer MEDICARE, SELFPAY ==
--- NOTE | 2023-06-18 08:54 | A.OFFPC_ITS ---
Vital Signs 06/18/23 08:57 Height 6 ft Weight 351 lb BMI 47.6 BP 130/90 H Blood Pressure Location Rt brachial Position Sitting Pulse 102 H Pulse Source Pulse Oximeter Pulse Oximetry (%) 94 Intake Visit Reasons: 4 month fu Intake Note: Patient here for HTN follow up Allergies No Known Allergies [No Known Allergies*] Allergy (Verified 06/18/23 08:58) Tobacco use date assessed: 03/03/23 HPI 4 month fu HPI Details Pt has 2 wounds on his left raman. He reports that these are draining serrous fluid. He has been keeping the area wrapped. Will order US (arterial LLE) and refer to wound center. Pt is very short of breath and breathing is labored with exertion. He reports that his improves after resting for approximately 5 minutes. Pt is very deconditioned. Will order chest XR and labs including BNP. Will do an EKG in office. Pt reports ongoing post-nasal drip. He has tried cetirizine and nasal sprays with no relief. ? deviated septum. Will refer to ENT. Denies fever, chills, and chest pain. [facility] Medical History Abscess of knee, left Moderate aortic stenosis Persistent atrial fibrillation Atherosclerosis of [place] coronary artery of [place] heart with angina pectoris Dyslipidemia Sleep apnea Reactive depression Anxiety HTN (hypertension) Surgical History History of incision and drainage Hx of carpal tunnel repair Status post ablation of incompetent vein using laser (~01/2022) History of revision of total replacement of left knee joint (~04/2016) History of total left knee replacement (~11/2015) History of evacuation of hematoma (~05/2015) History of total right knee replacement (TKR) (~04/2015) Family History Other Brain cancer Social History Household Members: Family Housing: House Do you presently have visiting nurse or other home services: No Alcohol intake: current Alcohol intake frequency: 0-2 drinks per day Comment: two canes Patient Tobacco Use Status: Former Tobacco user Quit Date: 7 years Years Smoked: 46+/- e-Cigarette/Vaping Use: Never Used Second Hand Smoke Exposure: No Substance Use Type: Marijuana Advance Directives Date on File: 03/05/22 service: No Current occupational status: previously employed and retired 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 Current occupational exposures/hazards: No Cognitive needs: No Hearing needs: No Vision needs: Yes Questionnaire Thrive Questionnaire Date Thrive assessed: 11/20/22 ENDY-7 AMB Questionnaire ENDY-7 Date ENDY - 7 assessed: 11/20/22 Source: Developed by Drs. Olivier Ann, Nicci Cates, Ken Ewing and colleagues, with an educational miller from [employer]. Review of Systems Const Reports as per HPI Physical exam (Primary Care) Vital Signs: Last Vital Signs Pulse 102 H 06/18/23 08:57 BP 130/90 H 06/18/23 08:57 Pulse Ox 94 06/18/23 08:57 BMI result Body Mass Index 47.6 Tobacco/Smoking Status: Tobacco use Status Tobacco use date assessed 03/03/23 06/18/23 08:56 Patient Tobacco Use Status Former Tobacco user 06/18/23 08:56 e-Cigarette/Vaping Use Never Used 06/18/23 08:56 Thrive Assessment: Date of Thrive Assessment Date Thrive assessed 11/20/22 06/18/23 08:56 Const Other: using dual canes (one each side) General: cooperative Nutritional Appearance: obese morbidly obese Orientation/consciousness: patient oriented x3 Resp Other: lungs fairly clear Effort & Inspection: labored Cardio Other: difficult to auscultate due to body habitus, irreg irreg Skin Other: discoloration to BLE Neuro General: patient oriented x3 Extrem Other: left anterior raman with 2 larger wounds, slough noted to both, draining serrous fluid Psych Appearance: grossly normal Mental Status: mental status grossly normal Speech and movement: Normal speech and movement present Affect: normal affect Attitude: cooperative Thought process: Normal thought process present Thought content: Normal thought content present Insight: Good insight present (Psych) Judgement: Good judgement present (Psych) Assessment and Plan Assessment & Plan (1) Wound of left lower extremity: Code(s): S81.802A - Unspecified open wound, left lower leg, initial encounter Plan: Referred to wound center (2) Discoloration of skin of lower leg: Code(s): L81.9 - Disorder of pigmentation, unspecified Plan: US ordered (3) Labored breathing: Code(s): R06.4 - Hyperventilation Plan: Chest XR ordered, pt is very deconditioned, labored breathing ceased after sitting for approx 5 minutes. (4) Post-nasal drip: Code(s): R09.82 - Postnasal drip Plan: ent referral Plan The patient agreed to the use of a medical technical writer for this encounter. Scribed for ERMA Hannon-BC by Valentine Rowe medical technical writer, on 06/18/2023 at 09:05 EST. Orders: Orders US arterial duplex LE LT Today L81.9 - Disorder of pigmentation, unspecified, S81.802A - Unspecified open wound, left lower leg, initial encounter Complete Blood Count Auto Diff Today R06.4 - Hyperventilation Comprehensive Met. Panel Today R06.4 - Hyperventilation AMB EKG-In Office Today R06.4 - Hyperventilation B Type Natriuretic Peptide Today R06.4 - Hyperventilation XR chest 2V Today R06.4 - Hyperventilation Referrals Wound Care Referral S81.802A - Unspecified open wound, left lower leg, initial encounter Ear/Nose/Throat Referral J34.2 - Deviated nasal septum, R09.82 - Postnasal drip Coding Level of Care Code Est Pt Level 3 (28264) Diagnoses Wound of left lower extremity S81.802A Discoloration of skin of lower leg L81.9 Labored breathing R06.4 Post-nasal drip R09.82
[2023-06-18 08:57] VITALS: BP 130/90; PULSE 102; O2SAT 94; BMI 47.6
== END 2023-06-18 10:26 | disposition home or self-care (01) ==
PROVIDERS: PCP Nurse Practitioner Family; Visit Provider Nurse Practitioner Family
DX: K52.9 Noninfective gastroenteritis and colitis, unspecified (principal); Z88.9 Allergy status to unspecified drugs, medicaments and biological substances; K21.9 Gastro-esophageal reflux disease without esophagitis; I10 Essential (primary) hypertension
CPT/HCPCS: 99213; 99214

== ENCOUNTER 2023-06-18 09:46 | Outpatient (REF) | payer MEDICARE, SELFPAY ==
--- NOTE | ~2023-06-18 | XR_ITS ---
EXAMINATION: XR CHEST CLINICAL INFORMATION: Hypoventilation COMPARISON: Chest radiograph of 01/22/2023, 12/05/2021 TECHNIQUE: 2 views of the chest were obtained. FINDINGS: The lung volumes are low. There is no gross pneumothorax. The cardiac silhouette is enlarged. Enlargement of the bilateral south redemonstrated. Atherosclerotic calcifications in the thoracic aorta. Redemonstration of old posterior right eighth rib fracture. No gross pleural effusion. Degenerative changes in the thoracic spine. Staple overlies the left lung base on the frontal view, but is difficult to visualize on the lateral view, suggesting it resides within the soft tissues or external to the patient. Correlation with clinical exam recommended for confirmation. Streaky bibasilar opacities may represent atelectasis and/or an inflammatory/infectious process. XR/XR chest 2V IMPRESSION: Streaky bibasilar opacities may represent atelectasis and/or an inflammatory/infectious process. Recommend follow-up imaging in 4-6 weeks to confirm resolution and exclude underlying pathology. CT scan of the chest could also be considered for further evaluation based on the clinical setting. This study was presented today June 22, 2023 at 11:00 AM for interpretation. PSA staff will provide results to referring provider at this time.
[2023-06-18 13:21] LABS: MANUAL DIFF FLAG NO
[2023-06-18 13:30] LABS: Basophils Absolute Auto 0.1 X10*3/uL (0.0-0.2); Basophils Percent Auto 0.8 % (0-2); Eosinophils Absolute Auto 0.3 X10*3/uL (0.0-0.4); Eosinophils Percent Auto 3.9 % (0-4); Hematocrit 35.5 % (42.0-52.0); Hemoglobin 11.5 g/dl (14.0-18.0); Imm Gran Abs Auto 0.04 X10*3/uL (0.00-0.03); Imm Gran Pct Auto 0.5 % (0.0-0.4); Lymphocytes Absolute Auto 1.3 X10*3/uL (1.2-4.9); Lymphocytes Percent Auto 17.9 % (20-40); Mean Corpuscular HGB Conc 32.4 g/dl (31.0-36.0); Mean Corpuscular Hemoglobin 31.1 pg (27.0-33.0); Mean Corpuscular Volume 95.9 fL (80.0-98.0); Mean Platelet Volume 10.3 fL (9.4-12.4); Monocytes Absolute Auto 0.7 X10*3/uL (0.1-1.2); Monocytes Percent Auto 9.7 % (2-11); Neutrophils Percent Auto 67.2 % (45-73); Platelet Count 225 X10*3/uL (160-400); Red Cell Distribution Width 14.7 % (11.0-16.0); White Blood Count 7.5 X10*3/uL (4.8-10.8)
[2023-06-18 13:50] LABS: Alanine Aminotransferase 10 U/L (0-40); Albumin Level 3.6 g/dL (3.5-5.0); Alkaline Phosphatase 74 U/L (39-117); Anion Gap 10 (12-20); Aspartate Amino Transferase 17 U/L (5-37); Bilirubin Total 0.6 mg/dL (0.0-1.0); Blood Urea Nitrogen 20 mg/dL (9-16); Calcium 8.9 mg/dL (8.4-10.2); Carbon Dioxide 29 mmol/L (22-29); Chloride 109 mmol/L (96-108); Estimated Glomerular Filt Rate > 60; Glucose Random 104 mg/dL (60-115); Potassium 4.6 mmol/L (3.3-5.1); Sodium 143 mmol/L (135-145)
[2023-06-18 14:08] LABS: B Type Natriuretic Peptide 193 pg/mL (<100)
== END 2023-06-18 09:47 | disposition home or self-care (01) ==
LOC: HO.HMGCX 09:46
PROVIDERS: PCP Nurse Practitioner Family; Visit Provider Nurse Practitioner Family
DX: R06.4 Hyperventilation (principal)
CPT/HCPCS: 36415; 71046; 80053; 83880; 85025

== ENCOUNTER 2023-06-25 08:17 | Outpatient (AMB) | payer MEDICARE, SELFPAY ==
--- NOTE | 2023-06-25 08:39 | MHC.OFFVIS ---
Intake Intake Visit Reasons: 4w Cysto/CT booked on 06/30 Intake Note: Patient presents today for a CYSTOSCOPY Procedure: Meds: None Allergies to Antibiotic: No Known Allergies Blood Thinner: None Urinalysis test cleared for Cysto Disposable Uro-G Cystoscope Cannula: Lot: [id number] Exp: 11/19/2024 Crown Wheel Assembler Required: No Accompanied by: Self / Same As Patient Allergies No Known Allergies [No Known Allergies*] Allergy (Verified 07/24/23 08:08) HPI HPI Comments History of Present Illness Details Andre is a 72-year-old male who presents today to the office for an evaluation of microscopic hematuria. Here today for office cystoscopy 06/25/23--Cystoscopy findings: Bladder no suspicious bladder lesions Review of chart: LV: 05/22/2023-- He presents today for an evaluation of microscopic hematuria. The patient has a past medical history significant for coronary artery disease, atrial fibrillation, Obesity and hypertension. I reviewed urine cytology results from 03/13/2023 revealed negative. I reviewed the US retroperitoneum results from 04/06/2023 revealed a possible 5 mm left upper pole kidney stone versus vascular calcification, right kidney is within the normal limits. I reviewed the PSA results from 02/23/2023 revealed 0.52 ng/mL. Patient has had urinalysis 02/23/23 which showed 3-5 red cells per high power field. He is a former smoker, states that he discontinued smoking about 5 years ago, prior, he used to smoke about a pack a day for 40-45 years. He denies any urinary symptoms at this time. 06/25/23--Plan: CT urogram pending [facility] Medical History Abscess of knee, left Moderate aortic stenosis Persistent atrial fibrillation Atherosclerosis of [place] coronary artery of [place] heart with angina pectoris Dyslipidemia Sleep apnea Reactive depression Anxiety HTN (hypertension) Surgical History History of incision and drainage Hx of carpal tunnel repair Status post ablation of incompetent vein using laser (~01/2022) History of revision of total replacement of left knee joint (~04/2016) History of total left knee replacement (~11/2015) History of evacuation of hematoma (~05/2015) History of total right knee replacement (TKR) (~04/2015) Family History Other Brain cancer Social History Household Members: Family Housing: House Do you presently have visiting nurse or other home services: No Alcohol intake: current Alcohol intake frequency: 0-2 drinks per day Comment: two canes Patient Tobacco Use Status: Former Tobacco user Quit Date: 7 years Years Smoked: 46+/- e-Cigarette/Vaping Use: Never Used Second Hand Smoke Exposure: No Substance Use Type: Marijuana Advance Directives Date on File: 03/05/22 service: No Current occupational status: previously employed and retired 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 Current occupational exposures/hazards: No Cognitive needs: No Hearing needs: No Vision needs: Yes Office Procedures Cystoscopy Consent Discussed risk and benefit or proposed procedure with the patient. Information consent for procedure given to the patient. Discussed technical aspects, risks, benefits and alternatives in full. Addressed all of the patient's questions and concerns regarding the procedure. The patient demonstrated knowledge and understanding. They wish to proceed with this procedure. Preparation The patient was prepped in the usual manner. A hadoop administrator was present and in the room. Genitalia was prepped with betadine solution in a sterile manner. Lidocaine Jelly 2% was placed into the urethra and 16Fr flexible Olympus cystoscope was inserted into the meatus after adequate lubrication. Procedure Time out per protocol performed. Bladder Inspection Bladder Inspection: The bladder was inspected in its entirety with utilization retroflexion displaying: Tumor(s): none visualized Trabeculation: mild Mucosal Erthema: N/A Orifices: normal shape and position Urethra: normal Cystoscopy findings: prostatic urethra bilobar enlargement, bulbous urethra WNL, no suspicious bladder lesions visualized [id number] DISPOSABLE SCOPE URO-G FLEXIBLE SCOPE Procedure code (CPT) selection complete Office Meds lidocaine HCl 2 % mucosal jelly in applicator Performing Provider: Rama Shearer MD Performing Location: [facility] – [place] [facility] Administered by: Bella Castañeda RN on 06/25/23 08:49 Dose Route Admin Location Dispensed Lot Number Expiration Date [employer] 10 mL intra-urethral 20 mL naproxen 500 mg tablet Performing Provider: Rama Shearer MD Performing Location: [facility] – [place] [facility] Administered by: Bella Castañeda RN on 06/25/23 08:49 Dose Route Admin Location Dispensed Lot Number Expiration Date [employer] 500 mg PO 1 tab ciprofloxacin HCl 500 mg tablet Performing Provider: Rama Shearer MD Performing Location: [facility] – [place] [facility] Administered by: Bella Castañeda RN on 06/25/23 08:49 Dose Route Admin Location Dispensed Lot Number Expiration Date [employer] 500 mg PO 1 tab Results AMB Urinalysis, Automated UA Leukoctes 0 Sherry/uL Last Edit by BRII Smith on 06/25/23 09:27 UA Nitrite Negative Last Edit by Mike Kruse [facility] on 06/25/23 09:27 UA Urobilinogen 0.2 mg/dL Last Edit by BRII Smith on 06/25/23 09:27 1+ Mike Kruse 06/25/23 09:27 UA Protein 30 mg/dL Last Edit by Mike Kruse [facility] on 06/25/23 09:27 UA pH 6.0 Last Edit by Mike Kruse [facility] on 06/25/23 09:27 UA Blood 0 Christian/uL Last Edit by Mike Kruse [facility] on 06/25/23 09:27 UA Specific [place] 1.020 Last Edit by Mike Kruse [facility] on 06/25/23 09:27 UA Ketone Positive Last Edit by Mike Kruse [facility] on 06/25/23 09:27 5 mg Mike Kruse 06/25/23 09:27 UA Bilirubin 0 mg/dL Last Edit by BRII Smith on 06/25/23 09:27 UA Glucose 0 mg/dL Last Edit by NASIR Smith on 06/25/23 09:27 Results Reviewed Results Reviewed: Laboratory Last Values Urine pH (Auto) 6.0 06/25/23 09:25 Specific [place] (Auto) 1.020 06/25/23 09:25 Urine Protein (Auto) 30 mg/dL 06/25/23 09:25 Glucose (UA)(Auto) 0 mg/dL 06/25/23 09:25 Urine Ketones (Auto) Positive 06/25/23 09:25 Urine Blood (Auto) 0 Christian/uL 06/25/23 09:25 Urine Nitrite (Auto) Negative 06/25/23 09:25 Urine Bilirubin (Auto) 0 mg/dL 06/25/23 09:25 Urine Urobilinogen (Auto) 0.2 mg/dL 06/25/23 09:25 Leukocyte Esterase (Auto) 0 Sherry/uL 06/25/23 09:25 Assessment & Plan Assessment & Plan (1) Proteinuria: Code(s): R80.9 - Proteinuria, unspecified (2) Hematuria: Code(s): R31.9 - Hematuria, unspecified Plan CT Urogram pending Orders: Orders AMB Cystoscopy 06/25/23 R31.9 - Hematuria, unspecified AMB Urinalysis Automated 06/25/23 Z13.9 - Encounter for screening, unspecified Referrals Nephrology Referral R80.9 - Proteinuria, unspecified Coding Level of Care Code Procedure Only Diagnoses Proteinuria R80.9 Hematuria R31.9 CPT Codes Cystoscopy - CPT: 77778-[id number] ([id number])
== END 2023-06-25 09:35 | disposition home or self-care (01) ==
PROVIDERS: PCP Nurse Practitioner Family; Visit Provider Urology
DX: R31.9 Hematuria, unspecified (principal); Z13.9 Encounter for screening, unspecified
CPT/HCPCS: 52000

== ENCOUNTER → 2023-06-25 08:17 | Outpatient (BNVA) | payer MEDICARE, SELFPAY | PROVIDERS: PCP Nurse Practitioner Family; Visit Provider Urology | DX: R80.9 Proteinuria, unspecified (principal); R31.9 Hematuria, unspecified | CPT/HCPCS: 52000; 81003 ==

== ENCOUNTER 2023-06-26 08:00 | Outpatient (AMB) | payer MEDICARE, SELFPAY ==
--- NOTE | 2023-06-26 08:09 | MHC.OFFVISCO ---
Intake Intake Visit Reasons: Anticoagulation Allergies No Known Allergies [No Known Allergies*] Allergy (Verified 06/26/23 08:00) Nursing Note Amb to ACS using 2 canes, mobility slow, pt AVILEZ declines WC for exit from ACS pt feeling not great started yesterday on Prednisone 40mg and augmentin for something in my lungs sts also legs awful noted R leg yumiko wrap, bilat legs edematous, discolored as usual (pt wearing shorts) Medications and supplements reviewed sts he has a CT scan coming up for something in lungs Denies any unusual signs and symptoms of bruising, bleeding Denies any new Chest pain, SOB, or clotting INR: 2.0 just in therapeutic range Nutritional guidance given: starting Thursday increase greens secondary to antibiotic and prednisone Dose: continue usual dosing; 1.25mg x 6 days, none on Fridays F/U INR:recommended 10 days and pt refused I got a lot going on, can't do it Patient verbalizes understanding of instructions given with accurate read back/ teach back of dosing compose note to PCP and WG regarding F/U and INR with any upcoming labwork Anti-Coag Initial Assessment Social Hx Patient Tobacco Use Status: Former Tobacco user Quit Date: 7 years alcohol intake: current Alcohol intake frequency: 0-2 drinks per day Questionnaires HAS-BLED Does the patient had uncontrolled Hypertension?: No Does the patient have renal disease?: No Does the patient have liver disease?: No Does the patient have a history of stroke?: No Has the patient had major bleeding or predisposition to bleeding?: Yes Does the patient have labile INRs?: No Is the patient over 65 years of age?: Yes Is the patient on medications that gives them a predisposition to bleeding?: Yes Does the patient use alcohol?: Yes HAS-BLED Score: 4 CHADSVASC Age: 66-74 Gender: Male Does the patient have a history of CHF?: No Does the patient have a history of Hypertension?: Yes Does the patient have a history of Stroke/TIA/Thromboembolism?: No Does the patient have a history of Vascular Disease (prior SC, PAD or aortic plaque)?: Yes Does the patient have a history of Diabetes?: No CHADS VACS Score: 3 Steven Prediction Score Rsk VTE Active Cancer: No Previous VTE, excluding superficial vein thrombosis: No Reduced mobility: Yes Already known Thrombophilic Condition: Yes With-in last month Trauma and/or Surgery: No Elderly 70 year or older: Yes Heart and/or Respiratory Failure: Yes Acute Myocardial infarction and/or Ischemic Stroke: No Acute Infection and/or Rheumatologic Disorder: No Obesity (BMI 30 or greater): Yes Ongoing Hormonal Treatment: No Score: 9 Steven Score less than 4; Low Risk of VTE Steven Score 4 or greater; High Risk of VTE Coding Level of Care Code Est Patient Level 1 Diagnoses Current use of anticoagulant therapy Z79.01 Time Spent (min) 15 Assessment & Plan Assessment & Plan (1) Current use of anticoagulant therapy: Code(s): Z79.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
== END 2023-06-26 09:22 | disposition home or self-care (01) ==
LOC: HO.ACS 08:00
PROVIDERS: PCP Nurse Practitioner Family; Visit Provider Internal Medicine
DX: Z79.01 Long term (current) use of anticoagulants (principal)

== ENCOUNTER → 2023-06-26 08:00 | Outpatient (BNVA) | payer MEDICARE, SELFPAY | PROVIDERS: PCP Nurse Practitioner Family; Visit Provider Internal Medicine | DX: I48.19 Other persistent atrial fibrillation (principal); Z79.01 Long term (current) use of anticoagulants; Z51.81 Encounter for therapeutic drug level monitoring | CPT/HCPCS: 85610; 99211 ==

== ENCOUNTER 2023-06-29 | Outpatient (REF) | payer MEDICARE, SELFPAY ==
[2023-07-08 08:15] LABS: FIT Int Ctl YES; FIT1 NEGATIVE (NEGATIVE); FIT2 POSITIVE (NEGATIVE)
== END 2023-06-29 00:01 | disposition home or self-care (01) ==
LOC: HO.LNP
PROVIDERS: Visit Provider Nurse Practitioner Family
DX: D64.9 Anemia, unspecified (principal)
CPT/HCPCS: 82274

== ENCOUNTER 2023-06-30 07:48 | Outpatient (REF) | payer MEDICARE, SELFPAY ==
--- NOTE | ~2023-06-30 | CT_ITS ---
EXAMINATION: CT ABDOMEN AND PELVIS WITHOUT AND WITH CONTRAST/CT UROGRAM CLINICAL INFORMATION: Hematuria COMPARISON: Renal ultrasound 04/06/2023 TECHNIQUE: Noncontrast CT of the abdomen and pelvis is performed followed by split bolus contrast-enhanced images using 85 mL Omnipaque 350 contrast.? Postcontrast imaging is performed during the combined nephrogram and excretion phase. Sagittal and coronal reformatted images were obtained on the technologist's workstation for both the precontrast and postcontrast phases. Additional 2-D coronal and sagittal reformatted images and axial 3-D maximum intensity projection MIP images are generated on the CT workstation. This CT examination was performed using dose optimization techniques as appropriate, variously including the following: *Automated exposure control *Adjustment of mA and/or kV according to patient size (this includes techniques or standardized protocols for targeted exams where dose is matched to indication/reason for exam; i.e. extremities or head) *Use of iterative reconstruction technique DLP: 1622 mGy-cm FINDINGS: LUNG BASES: The visualized lung bases are unremarkable. LIVER, GALLBLADDER, AND BILIARY TREE: The liver is normal in size, shape, and attenuation. No focal hepatic lesion or biliary ductal dilatation is present. The gallbladder is unremarkable with no evidence of radiopaque gallstones, gallbladder wall thickening, or obvious pericholecystic inflammatory changes. PANCREAS: Unremarkable. SPLEEN: Unremarkable. ADRENAL GLANDS: Unremarkable. KIDNEYS AND URETERS: The kidneys are normal in size, shape, and attenuation. The left kidney measures 12.9 cm in length and the right kidney measures 11.8 cm. There is an 8 mm calcified left upper pole renal calculus present that measures 1116 Hounsfield units and is 12.6 cm from the posterior axillary line. No other left-sided calculi are present. There is a tiny punctate 2 mm right mid to upper pole calculus (5:163 and 7:106). 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 No hydronephrosis, hydroureter, or ureteral calculi seen. No perinephric stranding. No masses are seen in the renal collecting systems. No renal parenchymal masses are seen. BLADDER: Unremarkable. GASTROINTESTINAL TRACT: The small and large bowel are unremarkable aside from some scattered colonic diverticula without diverticulitis. The appendix is unremarkable. ABDOMINAL WALL: No significant hernia is appreciated. LYMPH NODES: No retroperitoneal lymphadenopathy. VASCULAR: Calcific atherosclerotic changes are present in the aorta and iliofemoral vessels. There is no evidence of an abdominal aortic aneurysm. PELVIC VISCERA: The prostate and seminal versicles are unremarkable. OSSEUS STRUCTURES: Marked degenerative changes are present throughout the spine. CT/CT urogram IMPRESSION: 1. Bilateral nonobstructing renal calculi. 2. Other incidental findings as described above.
[2023-06-30] MEDS: iohexoL 350 MG/ML 100 ML INFUS..BTL IV (09:15)
== END 2023-06-30 07:49 | disposition home or self-care (01) ==
LOC: HO.CT 07:48
PROVIDERS: Visit Provider Urology
DX: R31.9 Hematuria, unspecified (principal)
CPT/HCPCS: 74178; Q9967

== ENCOUNTER 2023-07-01 08:10 | Outpatient (REF) | payer MEDICARE, SELFPAY ==
[2023-07-01 11:30] LABS: MANUAL DIFF FLAG NO
[2023-07-01 11:42] LABS: Basophils Absolute Auto 0.1 X10*3/uL (0.0-0.2); Basophils Percent Auto 0.7 % (0-2); Eosinophils Absolute Auto 0.2 X10*3/uL (0.0-0.4); Eosinophils Percent Auto 1.7 % (0-4); Hematocrit 40.4 % (42.0-52.0); Hemoglobin 13.1 g/dl (14.0-18.0); Imm Gran Abs Auto 0.09 X10*3/uL (0.00-0.03); Imm Gran Pct Auto 0.8 % (0.0-0.4); Mean Corpuscular HGB Conc 32.4 g/dl (31.0-36.0); Mean Corpuscular Hemoglobin 31.1 pg (27.0-33.0); Mean Platelet Volume 10.7 fL (9.4-12.4); Monocytes Absolute Auto 0.8 X10*3/uL (0.1-1.2); Monocytes Percent Auto 7.7 % (2-11); Neutrophils Absolute Auto 6.6 x10*3/uL (2.0-8.3); Neutrophils Percent Auto 61.1 % (45-73); Platelet Count 278 X10*3/uL (160-400); Red Blood Count 4.21 X10*6/uL (4.60-5.80); White Blood Count 10.7 X10*3/uL (4.8-10.8)
[2023-07-01 12:31] LABS: Vitamin B12 472 pg/mL (200-900)
[2023-07-01 14:53] LABS: Iron 76 mcg/dL (45-160); Percent Iron Saturation 24 % (15-50); Total Iron Binding Capacity 319 mcg/dL (228-428); Unsaturated Iron Binding 243 ug/dL
[2023-07-01 15:15] LABS: Ferritin 105 ng/mL (20-250)
== END 2023-07-01 08:11 | disposition home or self-care (01) ==
LOC: HO.HMGCLDS 08:10
PROVIDERS: PCP Nurse Practitioner Family; Visit Provider Nurse Practitioner Family
DX: D64.9 Anemia, unspecified (principal)
CPT/HCPCS: 36415; 82607; 82728; 82746; 83540; 85025

== ENCOUNTER 2023-07-02 08:48 | Outpatient (RCR) | payer MEDICARE, SELFPAY | END 2023-12-08 09:00 | disposition hospice, inpatient (51) | LOC: HO.WCC 08:48 | PROVIDERS: PCP Nurse Practitioner Family; Visit Provider Surgery | DX: I87.332 Chronic venous hypertension (idiopathic) with ulcer and inflammation of left lower extremity (principal); L97.825 Non-pressure chronic ulcer of other part of left lower leg with muscle involvement without evidence of necrosis; L97.812 Non-pressure chronic ulcer of other part of right lower leg with fat layer exposed; L88 Pyoderma gangrenosum; I89.0 Lymphedema, not elsewhere classified; I73.9 Peripheral vascular disease, unspecified; I10 Essential (primary) hypertension; Z92.3 Personal history of irradiation | CPT/HCPCS: 11042; 11043; 11045; 11046; 11104; 29581; 88305; 88311; 88312; 99212; 99213; 99214; 99215 ==

== ENCOUNTER 2023-07-20 14:43 | Outpatient (REF) | payer MEDICARE, SELFPAY ==
--- NOTE | ~2023-07-20 | US_ITS ---
EXAMINATION: US NONINVASIVE ASSESSMENT OF THE LEFT LOWER EXTREMITY WITH ARTERIAL DUPLEX CLINICAL INFORMATION: Unspecified open wound, left lower leg, initial encounter COMPARISON: None available. TECHNIQUE: Duplex Doppler techniques with waveform analysis and measurement of velocities in the common femoral, profunda femoris, superficial femoral, popliteal and tibial arteries were performed. FINDINGS: LEFT LOWER EXTREMITY DUPLEX ULTRASOUND: Common femoral artery: 130 cm/s. Diastolic flow reversal: Present Profunda femoris artery: 51.9 cm/s. Diastolic flow reversal: Present Superficial femoral artery (proximal): 105 cm/s. Diastolic flow reversal: Present Superficial femoral artery (mid): 84.1 cm/s. Diastolic flow reversal: Present Superficial femoral artery (distal): 73.3 cm/s. Diastolic flow reversal: Present Proximal popliteal artery: 38.5 cm/s Diastolic flow reversal: Present Distal popliteal artery: 41.3 cm/s Diastolic flow reversal: Present Posterior tibial artery: 57 cm/s Diastolic flow reversal: Present Anterior tibial artery: 52.6 cm/s Diastolic flow reversal: Present Dorsalis pedis: 57.1 cm/s Diastolic flow reversal: Present Peroneal artery: Not visualized US/US arterial duplex LE LT IMPRESSION: Nonvisualization of the peroneal artery which may be occluded. There is otherwise multiphasic flow throughout the lower extremity.
== END 2023-07-20 14:44 | disposition home or self-care (01) ==
LOC: HO.US 14:43
PROVIDERS: PCP Nurse Practitioner Family; Visit Provider Nurse Practitioner Family
DX: S81.802A Unspecified open wound, left lower leg, initial encounter (principal); L81.9 Disorder of pigmentation, unspecified
CPT/HCPCS: 93926

== ENCOUNTER 2023-07-22 07:20 | Outpatient (REF) | payer MEDICARE, SELFPAY ==
--- NOTE | ~2023-07-22 | CT_ITS ---
EXAMINATION: CT CHEST WITHOUT CONTRAST CLINICAL INFORMATION: Normal findings on other diagnostic imaging. COMPARISON: Chest radiograph 06/18/2023: Streaky bibasilar opacities may represent atelectasis and/or an inflammatory/infectious process. Recommend follow up imaging in 4-6 weeks to confirm resolution and exclude underlying pathology. CT urogram 06/30/2023: The visualized lung bases are unremarkable and coronal. TECHNIQUE: Multidetector volumetric CT imaging of the chest was done. Axial MIP volume rendering provided. Sagittal and coronal reformatted images were obtained. This CT examination was performed using dose optimization techniques as appropriate, variously including the following: *Automated exposure control *Adjustment of mA and/or kV according to patient size (this includes techniques or standardized protocols for targeted exams where dose is matched to indication/reason for exam; i.e. extremities or head) *Use of iterative reconstruction technique DLP: 335.00 mGy-cm FINDINGS: LUNGS: The lungs are clear with no evidence of inflammation or nodules. Some minimal right basilar atelectasis is seen. MEDIASTINUM: Heart size upper limits of normal. Aortic leaflet calcifications. No mediastinal or hilar lymphadenopathy. Visualized thyroid is unremarkable. CORONARY ARTERY CALCIFICATION: Mild. PLEURA: There is no pleural effusion. No pleural mass or thickening. AXILLA: No lymphadenopathy. UPPER ABDOMEN: Unremarkable. OSSEOUS STRUCTURES: Unremarkable. CT/CT chest wo IV con IMPRESSION: No significant abnormality is seen. The visualized lung bases are unremarkable. A worrisome or significant finding corresponding to questionable abnormalities on chest radiograph are not seen on the CT scan. Fleischner guidelines were followed.
== END 2023-07-22 07:21 | disposition home or self-care (01) ==
LOC: HO.CT 07:20
PROVIDERS: PCP Nurse Practitioner Family; Visit Provider Nurse Practitioner Family
DX: R93.89 Abnormal findings on diagnostic imaging of other specified body structures (principal); J98.4 Other disorders of lung; J18.9 Pneumonia, unspecified organism
CPT/HCPCS: 71250

== ENCOUNTER 2023-07-24 08:02 | Outpatient (AMB) | payer MEDICARE, SELFPAY ==
[2023-07-24 08:14] LABS: Prothrombin Time Whole Bld POC 26.1 sec (11.1-13.5); ~PT, ~INR - Anti Coag Clinic 2.2 (0.9-1.1)
--- NOTE | 2023-07-24 08:16 | MHC.OFFVISCO ---
Intake Intake Visit Reasons: Anticoagulation Allergies No Known Allergies [No Known Allergies*] Allergy (Verified 07/24/23 08:08) Medication List - Last Reconciled 07/24/23 by Sarah Barreto RN atorvastatin 10 mg PO BEDTIME 90 days betamethasone dipropionate 0.05% 1 appl topical DAILY PRN 14 days cetirizine (Zyrtec) 10 mg PO DAILY PRN fluticasone propionate 50 mcg/actuation 1 spray intranasal DAILY furosemide (Lasix) 40 mg PO DAILY hydrocortisone 2.5% 1 appl topical BID PRN metoprolol tartrate 50 mg orally 2 tabs in am and 1 in pm; 90 days metoprolol tartrate 100 mg orally 150mg am/ 50mg pm; oxycodone 10 mg PO DAILY PRN warfarin 1.25 mg See Protocol PO DAILY Nursing Note INR: 2.2 in therapeutic range Medications and supplements reviewed recovering fromURI and sinus to call if restarts any meds , Denies any signs and symptoms of bleeding or bruising or clotting. 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
== END 2023-07-24 08:19 | disposition home or self-care (01) ==
LOC: HO.ACS 08:02
PROVIDERS: PCP Nurse Practitioner Family; Visit Provider Internal Medicine
DX: Z79.01 Long term (current) use of anticoagulants (principal)

== ENCOUNTER → 2023-07-24 08:02 | Outpatient (BNVA) | payer MEDICARE, SELFPAY | PROVIDERS: PCP Nurse Practitioner Family; Visit Provider Internal Medicine | DX: I48.19 Other persistent atrial fibrillation (principal); Z79.01 Long term (current) use of anticoagulants; Z51.81 Encounter for therapeutic drug level monitoring | CPT/HCPCS: 85610; 99211 ==

== ENCOUNTER 2023-08-12 09:50 | Outpatient (AMB) | payer MEDICARE, SELFPAY ==
--- NOTE | 2023-08-12 10:02 | MHC.OFFVIS ---
Intake Vital Signs 08/12/23 10:03 Height 6 ft Weight 350 lb BMI 47.5 BP 145/83 H Blood Pressure Location Lt brachial Position Sitting Pulse 83 Intake Visit Reasons: pt req appointment Intake Note: Patient follow up for pre colonoscopy screening consult. Patient denies any GI issues. Braille Typist Required: No Accompanied by: Self / Same As Patient Allergies No Known Allergies [No Known Allergies*] Allergy (Verified 08/12/23 10:01) HPI pt req appointment HPI Details LAST VISIT Positive colorectal cancer screening using Cologuard test Positive Cologuard in December 2022 Screen for colon cancer Patient denies any GI, cardiac or respiratory symptoms.? Denies any issues with anesthesia in the past.? No history infectious diseases in the past or present.? Patient is on warfarin daily. Family history of colorectal cancer in paternal grandmother? Patient denies melena, hematochezia, unintentional weight loss or ribbon like stools.? Patient has a history of AFib unable to cardiovert him due to mild setback with cellulitis bilateral lower extremities. Patient also has severe aortic stenosis and will need to be cleared from Cardiology. Will contact Dr. Daigle for risk stratification and holding warfarin before the procedure. Discussed at length the pre-procedure,? prep, diet & medications as well as what to expect prior, during and after the procedure.?? Stressed the importance of good bowel prep. ?Recommended the use of Vaseline or Calmoseptine OTC & baby wipes with bowel movements to promote comfort.? ?Patient verbalizes understanding and agrees to plan of care.? He was given the opportunity to ask questions and all questions answered.? We will see him after the procedure.? Patient was accompanied by his sister who will be helping patient prep for the procedure and bring him to the procedure Plan Medications New bisacodyl (Dulcolax (bisacodyl)) take 2 tabs at noon the day before your colonoscopy 10 mg (2 x 5 mg) PO ONCE 1 day 2 tabs 0RF Z12.11 - Encounter for screening for malignant neoplasm of colon polyethylene glycol 3350 (Miralax) As directed by gastroenterology department at [facility] 238 grams PO ONCE 238 grams 0RF Z12.11 - Encounter for screening for malignant neoplasm of colon 05/01/2023 ANESTHESIA NOTES PRIOR TO COLONOSCOPY Assessment and Plan Final Anesthetic Review Family History of Problems with Anesthesia: No History of Problems with Anesthesia: No NPO: Yes ASA Class: III Final Preanesthetic Review: Meds/Allgs Chart Reviewed, Anes Risks/Benef Reviewed and DNR Form (If Appl.) Anesthetic Plan Anesthetic Plan: MAC: and Other (Pt. is having rapid atrial fibrillation/ HR 132-164/, has no CP, SOB, but moderate Aortic stenosis. I gave 5 mg. Metoprolol iv before he was taken to ER for further treatment of a fib, report given to ER doctor., colonoscopy got cancelled.) TODAY'S VISIT Patient is here today for requested visit. As mentioned above patient's procedure was canceled. Patient went into rapid AFib before the procedure. Since then his metoprolol was increased. Patient denies any GI concerning symptoms except for occasional blood in the stool after bowel movement. Patient is on warfarin for persistent AF. History of moderate aortic stenosis. Patient will need to be cleared before going for procedure by Cardiology. Patient has an appointment with Cardiology on October 04. Patient has multiple comorbidities like obesity, AF, , ASA lll score from April of 2023. [facility] Medical History Abscess of knee, left Moderate aortic stenosis Persistent atrial fibrillation Atherosclerosis of [place] coronary artery of [place] heart with angina pectoris Dyslipidemia Sleep apnea Reactive depression Anxiety HTN (hypertension) Surgical History History of incision and drainage Hx of carpal tunnel repair Status post ablation of incompetent vein using laser (~01/2022) History of revision of total replacement of left knee joint (~04/2016) History of total left knee replacement (~11/2015) History of evacuation of hematoma (~05/2015) History of total right knee replacement (TKR) (~04/2015) Family History Other Brain cancer Social History Household Members: Family Housing: House Do you presently have visiting nurse or other home services: No Alcohol intake: current Alcohol intake frequency: 0-2 drinks per day Comment: two canes Patient Tobacco Use Status: Former Tobacco user Quit Date: 7 years Years Smoked: 46+/- e-Cigarette/Vaping Use: Never Used Second Hand Smoke Exposure: No Substance Use Type: Marijuana Advance Directives Date on File: 03/05/22 service: No Current occupational status: previously employed and retired 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 Current occupational exposures/hazards: No Cognitive needs: No Hearing needs: No Vision needs: Yes Review of Systems Const Denies weight gain and Denies weight loss ENT Reports no additional complaints, Denies dysphagia and Denies odynophagia Card Reports no additional complaints, Reports pedal edema, Reports irregular heart rhythm and Reports dyspnea Resp Reports no additional complaints and Reports dyspnea GI Denies abdominal pain, Denies belching, Denies melena, Denies bloating, Denies change in bowel habits, Denies dysphagia, Denies excessive flatus, Denies dyspepsia, Denies heartburn, Denies diarrhea, Denies loose stools, Denies nausea, Denies odynophagia and Denies vomiting Reports no additional complaints Musc Reports no additional complaints Skin/Breast Reports wounds (BLE, seen at wound care center) Neuro Reports no additional complaints Psych Reports no additional complaints Endo Reports no additional complaints Physical Exam Vital Signs: Last Vital Signs Pulse 83 08/12/23 10:03 BP 145/83 H 08/12/23 10:03 BMI result Body Mass Index 47.5 Const General: healthy appearing, no acute distress and well developed Nutritional Appearance: well nourished Orientation/consciousness: patient oriented x3 Resp Effort & Inspection: normal respiratory effort, able to speak in complete sentences, no tracheal deviation and symmetric chest movement Auscultation: clear to auscultation bilaterally Cardio Rate: regular rate GI Inspection: Yes normal to inspection, Yes distended and Yes obesity Palpation (GI): Soft to palpation, not firm, nontender and No hepatosplenomegaly present Auscultation: normal bowel sounds General: Yes no CVA tenderness Back/Spine/Pelvis Back: no CVA tenderness Skin Other: BLE Renny wrap to wound. [facility] been [facility] for [facility] changes Neuro General: patient oriented x3 Psych Appearance: grossly normal Insight: Good insight present (Psych) Judgement: Good judgement present (Psych) Assessment & Plan Assessment & Plan (1) Positive colorectal cancer screening using Cologuard test: Code(s): R19.5 - Other fecal abnormalities Plan Patient will have appointment with Cardiology for risk stratification, colonoscopy never performed due to patient going into rapid AFib. Since that episode patient's metoprolol was increased. I will see patient in September to discuss colonoscopy if cleared. Patient reports occasional blood in his stool. Cologuard test would be positive in that case. Coding Level of Care Code Est Pt Level 3 (50184) Diagnoses Positive colorectal cancer screening using Cologuard test R19.5 Time Spent (min) 35 Comment 20 minutes spent with patient and additional 15 minutes spent reviewing his records
[2023-08-12 10:03] VITALS: BP 145/83; PULSE 83; BMI 47.5
== END 2023-08-12 10:50 | disposition home or self-care (01) ==
PROVIDERS: PCP Nurse Practitioner Family; Visit Provider Nurse Practitioner Family
DX: R19.5 Other fecal abnormalities (principal)
CPT/HCPCS: 99213

== ENCOUNTER → 2023-08-12 09:50 | Outpatient (BNVA) | payer MEDICARE, SELFPAY | PROVIDERS: PCP Nurse Practitioner Family; Visit Provider Nurse Practitioner Family | DX: R19.5 Other fecal abnormalities (principal) | CPT/HCPCS: 99212 ==

== ENCOUNTER 2023-08-21 07:56 | Outpatient (AMB) | payer MEDICARE, SELFPAY ==
[2023-08-21 08:03] LABS: Prothrombin Time Whole Bld POC 24.5 sec (11.1-13.5)
--- NOTE | 2023-08-21 08:05 | MHC.OFFVISCO ---
Intake Intake Visit Reasons: Anticoagulation Allergies No Known Allergies [No Known Allergies*] Allergy (Verified 08/21/23 07:57) Medication List - Last Reconciled 08/21/23 by Sarah Barreto RN atorvastatin 10 mg PO BEDTIME 90 days betamethasone dipropionate 0.05% 1 appl topical DAILY PRN 14 days cetirizine (Zyrtec) 10 mg PO DAILY PRN fluticasone propionate 50 mcg/actuation 1 spray intranasal DAILY furosemide (Lasix) 40 mg PO DAILY hydrocortisone 2.5% 1 appl topical BID PRN metoprolol tartrate 50 mg orally 2 tabs in am and 1 in pm; 90 days metoprolol tartrate 100 mg orally 150mg am/ 50mg pm; oxycodone 10 mg PO DAILY PRN warfarin 1.25 mg See Protocol PO DAILY Nursing Note INR: 2.0 in therapeutic range Medications and supplements reviewed has a cold of some kind x 3 days taking otc Denies any signs and symptoms of bleeding or bruising or clotting. Bleeding, bruising, clotting discussed Nutritional guidance given Dose: 1.25mg x 6 days/ 0 x 1 day F/U INR: 4 weeks enc to call with any med changes due to cold, enc fresh air deep breathing and fluids Patient verbalizes understanding of instructions given Anti-Coag Initial Assessment Social Hx Patient Tobacco Use Status: Former Tobacco user Quit Date: 7 years alcohol intake: current Alcohol intake frequency: 0-2 drinks per day Coding Level of Care Code Est Patient Level 1 Diagnoses Current use of anticoagulant therapy Z79.01 Assessment & Plan Assessment & Plan (1) Current use of anticoagulant therapy: Code(s): Z79.01 - [facility] (current) use of anticoagulants Category: Medical
== END 2023-08-21 08:09 | disposition home or self-care (01) ==
LOC: HO.ACS 07:56
PROVIDERS: PCP Nurse Practitioner Family; Visit Provider Internal Medicine
DX: Z79.01 Long term (current) use of anticoagulants (principal)

== ENCOUNTER → 2023-08-21 07:56 | Outpatient (BNVA) | payer MEDICARE, SELFPAY | PROVIDERS: PCP Nurse Practitioner Family; Visit Provider Internal Medicine | DX: I48.19 Other persistent atrial fibrillation (principal); Z79.01 Long term (current) use of anticoagulants; Z51.81 Encounter for therapeutic drug level monitoring | CPT/HCPCS: 85610; 99211 ==

== ENCOUNTER 2023-08-27 08:16 | Outpatient (AMB) | payer MEDICARE, SELFPAY ==
--- NOTE | 2023-08-27 08:21 | MHC.OFFVIS ---
Intake Intake Visit Reasons: CT follow up Intake Note: Patient presents today for a follow up medications: None Blood Thinners: Warfarin Template Layout Worker Required: No Accompanied by: Allergies No Known Allergies [No Known Allergies*] Allergy (Verified 10/13/23 12:21) Medication List - Last Reconciled 08/27/23 by Rama Shearer MD atorvastatin 10 mg PO BEDTIME 90 days betamethasone dipropionate 0.05% 1 appl topical DAILY PRN 14 days cetirizine (Zyrtec) 10 mg PO DAILY PRN fluticasone propionate 50 mcg/actuation 1 spray intranasal DAILY furosemide (Lasix) 40 mg PO DAILY hydrocortisone 2.5% 1 appl topical BID PRN metoprolol tartrate 50 mg orally 2 tabs in am and 1 in pm; 90 days metoprolol tartrate 100 mg orally 150mg am/ 50mg pm; oxycodone 10 mg PO DAILY PRN warfarin 1.25 mg See Protocol PO DAILY HPI HPI Comments History of Present Illness Details Andre is a 73-year-old male who presents today to the office for an FU evaluation of microscopic hematuria. 08/27/23--He is here to review CT scan results. I have discussed that there is a 8 mm non-obstructing left kidney stone and a 2 mm right kidney stone. Comorbidity - Obese, on coumadin, CAD I have discussed that stones larger than 5 mm may cause a blockage to the kidney if they move into the ureter. I have discussed ESWL procedure with risks to include but not limited to, bleeding, possible need for another procedure if a stone fragment obstructs the ureter while passing, possible need to repeat procedure if stone is not completely fragmented. Also discussed alternative for observing and monitoring the stone, with the risk that it could move and obstruct the kidney, may cause gross hematuria, and possible urinary tract infection The patient is on coumadin and would need cardiology clearance prior to any urological procedures. CT Urogram: 8 mm calcified left upper pole, renal calculus present that measures 1116 Hounsfield units, 2 mm right renal stone Review of chart: 06/25/23--Cystoscopy findings: Bladder no suspicious bladder lesions LV: 05/22/2023-- He presents today for an evaluation of microscopic hematuria. The patient has a past medical history significant for coronary artery disease, atrial fibrillation, Obesity and hypertension. I reviewed urine cytology results from 03/13/2023 revealed negative. I reviewed the US retroperitoneum results from 04/06/2023 revealed a possible 5 mm left upper pole kidney stone versus vascular calcification, right kidney is within the normal limits. I reviewed the PSA results from 02/23/2023 revealed 0.52 ng/mL. Patient has had urinalysis 02/23/23 which showed 3-5 red cells per high power field. He is a former smoker, states that he discontinued smoking about 5 years ago, prior, he used to smoke about a pack a day for 40-45 years. He denies any urinary symptoms at this time. 08/27/23-- Plan - Discussed treatment plan as above, observe vs ESWL Left, the patient states they have a cardiology appointment coming up and want to discuss this with the creative services writer FU in 3 months. [facility] Medical History Abscess of knee, left Moderate aortic stenosis Persistent atrial fibrillation Atherosclerosis of [place] coronary artery of [place] heart with angina pectoris Dyslipidemia Sleep apnea Reactive depression Anxiety HTN (hypertension) Surgical History History of incision and drainage Hx of carpal tunnel repair Status post ablation of incompetent vein using laser (~01/2022) History of revision of total replacement of left knee joint (~04/2016) History of total left knee replacement (~11/2015) History of evacuation of hematoma (~05/2015) History of total right knee replacement (TKR) (~04/2015) Family History Other Brain cancer Social History Household Members: Family Housing: House Do you presently have visiting nurse or other home services: No Alcohol intake: current Alcohol intake frequency: 0-2 drinks per day Comment: two canes Patient Tobacco Use Status: Former Tobacco user Quit Date: 7 years Years Smoked: 46+/- e-Cigarette/Vaping Use: Never Used Second Hand Smoke Exposure: No Substance Use Type: Marijuana Advance Directives Date on File: 03/05/22 service: No Current occupational status: previously employed and retired 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 Current occupational exposures/hazards: No Cognitive needs: No Hearing needs: No Vision needs: Yes Review of Systems Const All systems reviewed & are unremarkable except as noted in HPI and below Reports no additional complaints Eyes Reports no additional complaints ENT Reports no additional complaints Card Denies dyspnea Resp Denies cough and Denies dyspnea GI Reports no additional complaints Musc Reports no additional complaints Skin/Breast Denies rash and Denies unusual bruising Neuro Reports no additional complaints Psych Reports no additional complaints Endo Reports no additional complaints Ubaldo/Lymph Reports no additional complaints Aller/Immun Reports no additional complaints Results AMB Urinalysis, Automated UA Leukoctes 0 Sherry/uL Last Edit by Kaylee Doherty [facility] on 08/27/23 08:39 UA Nitrite Negative Last Edit by Kaylee Dohertyaditi Doherty [facility] on 08/27/23 08:39 UA Urobilinogen 0.2 mg/dL Last Edit by Kaylee Dohertyaditi Doherty, [facility] on 08/27/23 08:39 UA Protein 100 mg/dL Last Edit by Kaylee Doherty [facility] on 08/27/23 08:39 UA pH 6.0 Last Edit by Kaylee Doherty, [facility] on 08/27/23 08:39 UA Blood 200 Christian/uL Last Edit by Kaylee Doherty [facility] on 08/27/23 08:39 UA Specific Sodus 1.025 Last Edit by Kaylee Doherty [facility] on 08/27/23 08:39 UA Ketone Negative Last Edit by Kaylee Dohertyaditi Doherty [facility] on 08/27/23 08:39 UA Bilirubin 1 mg/dL Last Edit by Kaylee Dohertyaditi Doherty [facility] on 08/27/23 08:39 UA Glucose 0 mg/dL Last Edit by Kaylee Dohertyaditi Doherty [facility] on 08/27/23 08:39 Results Reviewed Results Reviewed: Laboratory Last Values Urine pH (Auto) 6.0 08/27/23 08:24 Specific [place] (Auto) 1.025 08/27/23 08:24 Urine Protein (Auto) 100 mg/dL 08/27/23 08:24 Glucose (UA)(Auto) 0 mg/dL 08/27/23 08:24 Urine Ketones (Auto) Negative 08/27/23 08:24 Urine Blood (Auto) 200 Christian/uL 08/27/23 08:24 Urine Nitrite (Auto) Negative 08/27/23 08:24 Urine Bilirubin (Auto) 1 mg/dL 08/27/23 08:24 Urine Urobilinogen (Auto) 0.2 mg/dL 08/27/23 08:24 Leukocyte Esterase (Auto) 0 Sherry/uL 08/27/23 08:24 Date of Service: 06/30/23 EXAMINATION: CT ABDOMEN AND PELVIS WITHOUT AND WITH CONTRAST/CT UROGRAM CLINICAL INFORMATION: Hematuria COMPARISON: Renal ultrasound 04/06/2023 TECHNIQUE: Noncontrast CT of the abdomen and pelvis is performed followed by split bolus contrast-enhanced images using 85 mL Omnipaque 350 contrast.? Postcontrast imaging is performed during the combined nephrogram and excretion phase. Sagittal and coronal reformatted images were obtained on the technologist's workstation for both the precontrast and postcontrast phases. Additional 2-D coronal and sagittal reformatted images and axial 3-D maximum intensity projection MIP images are generated on the CT workstation. This CT examination was performed using dose optimization techniques as appropriate, variously including the following: *Automated exposure control *Adjustment of mA and/or kV according to patient size (this includes techniques or standardized protocols for targeted exams where dose is matched to indication/reason for exam; i.e. extremities or head) *Use of iterative reconstruction technique DLP: 1622 mGy-cm FINDINGS: LUNG BASES: The visualized lung bases are unremarkable. LIVER, GALLBLADDER, AND BILIARY TREE: The liver is normal in size, shape, and attenuation. No focal hepatic lesion or biliary ductal dilatation is present. The gallbladder is unremarkable with no evidence of radiopaque gallstones, gallbladder wall thickening, or obvious pericholecystic inflammatory changes. PANCREAS: Unremarkable. SPLEEN: Unremarkable. ADRENAL GLANDS: Unremarkable. KIDNEYS AND URETERS: The kidneys are normal in size, shape, and attenuation. The left kidney measures 12.9 cm in length and the right kidney measures 11.8 cm. There is an 8 mm calcified left upper pole renal calculus present that measures 1116 Hounsfield units and is 12.6 cm from the posterior axillary line. No other left-sided calculi are present. There is a tiny punctate 2 mm right mid to upper pole calculus (5:163 and 7:106). 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 No hydronephrosis, hydroureter, or ureteral calculi seen. No perinephric stranding. No masses are seen in the renal collecting systems. No renal parenchymal masses are seen. BLADDER: Unremarkable. GASTROINTESTINAL TRACT: The small and large bowel are unremarkable aside from some scattered colonic diverticula without diverticulitis. The appendix is unremarkable. ABDOMINAL WALL: No significant hernia is appreciated. LYMPH NODES: No retroperitoneal lymphadenopathy. VASCULAR: Calcific atherosclerotic changes are present in the aorta and iliofemoral vessels. There is no evidence of an abdominal aortic aneurysm. PELVIC VISCERA: The prostate and seminal versicles are unremarkable. OSSEUS STRUCTURES: Marked degenerative changes are present throughout the spine. IMPRESSION: 1. Bilateral nonobstructing renal calculi. 2. Other incidental findings as described above. Assessment & Plan Assessment & Plan (1) Hematuria: Code(s): R31.9 - Hematuria, unspecified (2) Bilateral kidney stones: Code(s): N20.0 - Calculus of kidney Plan Plan - Discussed treatment plan as above, observe vs ESWL Left, the patient states they have a cardiology appointment coming up and want to discuss this with the creative services writer FU in 3 months. Orders: Orders AMB Urinalysis Automated 08/27/23 R33.9 - Retention of urine, unspecified Patient Instructions: The patient had an opportunity to ask questions regarding treatment plan. All questions were answered. Imaging, Laboratory studies and physical exam results were discussed and reviewed in detail. No major barriers to understanding were identified. The patient expressed understanding and agreement with the above treatment plan. The patient is aware they should contact our office by phone for worsening of their current condition or the appearance of new symptoms. Compliance is encouraged with any medications and followup testing that is ordered. It is a privilege to be allowed the opportunity to participate in the urologic care of your patient. If you have any questions or concerns regarding treatment for the above conditions please do not hesitate to contact me. The office telephone contact is [phone]. This note is constructed in part using voice recognition software. While every effort has been made to ensure accuracy conductor pullman errors may have been included. Yours sincerely, Rama Shearer MD Coding Level of Care Code Est Pt Level 4 (79598) Diagnoses Hematuria R31.9 Bilateral kidney stones N20.0
== END 2023-08-27 09:25 | disposition home or self-care (01) ==
PROVIDERS: PCP Nurse Practitioner Family; Visit Provider Urology
DX: R31.9 Hematuria, unspecified (principal); N20.0 Calculus of kidney
CPT/HCPCS: 99214

== ENCOUNTER → 2023-08-27 08:16 | Outpatient (BNVA) | payer MEDICARE, SELFPAY | PROVIDERS: PCP Nurse Practitioner Family; Visit Provider Urology | DX: R31.9 Hematuria, unspecified (principal); N20.0 Calculus of kidney | CPT/HCPCS: 81003; 99212 ==

== ENCOUNTER 2023-09-18 08:07 | Outpatient (AMB) | payer MEDICARE, SELFPAY ==
[2023-09-18 08:12] LABS: Prothrombin Time Whole Bld POC 20.6 sec (11.1-13.5); ~PT, ~INR - Anti Coag Clinic 1.7 (0.9-1.1)
--- NOTE | 2023-09-18 08:15 | MHC.OFFVISCO ---
Intake Intake Visit Reasons: Anticoagulation Allergies No Known Allergies [No Known Allergies*] Allergy (Verified 08/27/23 08:32) Medication List - Last Reconciled 09/18/23 by Ana Maria Patino RN atorvastatin 10 mg PO BEDTIME 90 days betamethasone dipropionate 0.05% 1 appl topical DAILY PRN 14 days cetirizine (Zyrtec) 10 mg PO DAILY PRN fluticasone propionate 50 mcg/actuation 1 spray intranasal DAILY furosemide (Lasix) 40 mg PO DAILY hydrocortisone 2.5% 1 appl topical BID PRN metoprolol tartrate 50 mg orally 2 tabs in am and 1 in pm; 90 days metoprolol tartrate 100 mg orally 150mg am/ 50mg pm; oxycodone 10 mg PO DAILY PRN warfarin 1.25 mg See Protocol PO DAILY Nursing Note Amb to ACS slowly using 2 canes, feeling same Medications and supplements reviewed No changes in health, diet, medications, or supplements Denies any unusual signs and symptoms of bruising, bleeding Denies any new Chest pain, SOB, or clotting INR: 1.7 below therapeutic range, denies missing dose Nutritional guidance given: no greens x 2 days, reds to raise, options given then balance greens and reds in diet Dose: take 1.25mg today (vs usual 0mg) the resume usual 1.25mg x 6 days; F/U INR:recommended 2 weeks refused sts he has a lot of Drs appointments and will be back in 4 weeks attempts to review rationale for earlier F/U failed Patient verbalizes understanding of instructions given with accurate read back/ teach back of dosing Compose note to Dr Berry and GEOFF Anti-Coag Initial Assessment Social Hx Patient Tobacco Use Status: Former Tobacco user Quit Date: 7 years alcohol intake: current Alcohol intake frequency: 0-2 drinks per day Coding Level of Care Code Est Patient Level 1 Diagnoses Current use of anticoagulant therapy Z79.01 Time Spent (min) 15 Assessment & Plan Assessment & Plan (1) Current use of anticoagulant therapy: Code(s): Z79.01 - terminal press operator (current) use of anticoagulants Category: Medical
== END 2023-09-18 08:24 | disposition home or self-care (01) ==
LOC: HO.ACS 08:07
PROVIDERS: PCP Nurse Practitioner Family; Visit Provider Internal Medicine
DX: Z79.01 Long term (current) use of anticoagulants (principal)

== ENCOUNTER → 2023-09-18 08:07 | Outpatient (BNVA) | payer MEDICARE, SELFPAY | PROVIDERS: PCP Nurse Practitioner Family; Visit Provider Internal Medicine | DX: I48.19 Other persistent atrial fibrillation (principal); Z79.01 Long term (current) use of anticoagulants; Z51.81 Encounter for therapeutic drug level monitoring | CPT/HCPCS: 85610; 99211 ==

== ENCOUNTER 2023-10-05 08:02 | Outpatient (AMB) | payer MEDICARE, SELFPAY ==
[2023-10-05 08:15] VITALS: BP 130/60; PULSE 79; BMI 47.5
--- NOTE | 2023-10-05 08:15 | MHC.OFFVIS ---
Intake Vital Signs 10/05/23 08:15 Height 6 ft Weight 350 lb BMI 47.5 BP 130/60 Blood Pressure Location Lt brachial Position Sitting Pulse 79 Intake Visit Reasons: 6 month fu+ clearance FREIDA Sears Intake Note: pt its here for a 6 mnth f/up pt states that he kits doing fine Preventive Medicine Physician Required: No Accompanied by: Spouse Allergies No Known Allergies [No Known Allergies*] Allergy (Verified 10/05/23 09:19) Medication List - Last Reconciled 10/05/23 by Haylee Mcneal NP-C atorvastatin 10 mg PO BEDTIME 90 days betamethasone dipropionate 0.05% 1 appl topical DAILY PRN 14 days cetirizine (Zyrtec) 10 mg PO DAILY PRN furosemide (Lasix) 40 mg PO DAILY hydrocortisone 2.5% 1 appl topical BID PRN metoprolol tartrate 100 mg orally 150mg am/ 50mg pm; oxycodone 10 mg PO DAILY PRN warfarin 1.25 mg See Protocol PO DAILY HPI 6 month fu+ clearance FREIDA Sears HPI Details Details Andre is a 72-year-old male past medical history of morbid obesity, hypertension, hyperlipidemia, persistent atrial fibrillation, moderate to severe aortic stenosis presents for preop clearance for colonoscopy and lithotrispy. States he has shortness of breath with activity. The symptom is not new. No shortness of breath at rest. No PND, orthopnea. Has chronic lower leg edema and has open sores that he follows with the wound clinic once a week and has visiting nurse twice weekly for dressing changes. No chest discomfort at rest or with activity. No lightheadedness, presyncope, syncope, falls. He ambulates with 2 canes and at this visit is using a wheelchair. He tells me he has a kidney stone which is not bothering him at this time however will need lithotripsy as it will not pass. He is also will need a colonoscopy at some point in the near future due to abnormal Cologuard test. Significant other is present. [facility] Medical History Abscess of knee, left Moderate aortic stenosis Persistent atrial fibrillation Atherosclerosis of [place] coronary artery of [place] heart with angina pectoris Dyslipidemia Sleep apnea Reactive depression Anxiety HTN (hypertension) Surgical History History of incision and drainage Hx of carpal tunnel repair Status post ablation of incompetent vein using laser (~01/2022) History of revision of total replacement of left knee joint (~04/2016) History of total left knee replacement (~11/2015) History of evacuation of hematoma (~05/2015) History of total right knee replacement (TKR) (~04/2015) Family History Other Brain cancer Social History Household Members: Family Housing: House Do you presently have visiting nurse or other home services: No Alcohol intake: current Alcohol intake frequency: 0-2 drinks per day Comment: two canes Patient Tobacco Use Status: Former Tobacco user Quit Date: 7 years Years Smoked: 46+/- e-Cigarette/Vaping Use: Never Used Second Hand Smoke Exposure: No Substance Use Type: Marijuana Advance Directives Date on File: 03/05/22 service: No Current occupational status: previously employed and retired 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 Current occupational exposures/hazards: No Cognitive needs: No Hearing needs: No Vision needs: Yes Review of Systems Const All systems reviewed & are unremarkable except as noted in HPI and below Denies chills, Denies fatigue, Denies fever(s), Denies frequent falls, Denies weakness, Denies weight gain and Denies weight loss ENT Denies dizziness Card Denies chest pain, Reports leg edema, Denies lightheadedness, Denies palpitations, Denies dyspnea and Reports dyspnea on exertion Resp Denies cough, Denies dyspnea and Reports dyspnea on exertion GI Denies hematochezia Musc Details: using wheelchair Reports abnormal gait, Denies muscle weakness, Denies numbness, Denies radiating pain into limb and Denies tingling Neuro Reports abnormal gait, Denies dizziness, Denies frequent falls, Denies numbness, Denies tingling and Denies weakness Endo Denies fatigue and Denies palpitations Physical Exam Vital Signs: BMI result Body Mass Index 47.5 Const Other: morbidly obese, sitting in wheelchair General: alert, awake and in distress (bilateral leg pain with walking. Not distressed at rest) Orientation/consciousness: patient oriented x3 Neck Neck: Yes no JVD Resp Effort & Inspection: normal respiratory effort Auscultation: clear to auscultation bilaterally, no rales, no rhonchi and no wheezes Cardio Jugular venous distension: no JVD (no noted. obese difficult to assess) Rate: regular rate Rhythm: abnormal rhythm Heart sounds: Murmur heart sound present (systolic, heart tones difficult to hear) and no rubs Neuro General: patient oriented x3 Extrem Other: dressings on each lower extremity Psych Mental Status: mental status grossly normal Speech and movement: Normal speech and movement present Office Procedures EKG Details: Today, read by me, Afib, can't exclude anterior infarct, rate 79, QTc 396ms [id number], Complete Assessment & Plan Assessment & Plan (1) Severe aortic stenosis: Code(s): I35.0 - Nonrheumatic aortic (valve) stenosis Plan: History of aortic stenosis. Last echocardiogram done 05/28/2023 shows EF 65-70%, moderate to severe aortic stenosis, mean gradient 21 mmHg, aortic valve area 1.1 centimeters sq. Nuclear stress test was done on 05/07/2021 showing normal myocardial perfusion imaging. He has shortness of breath with walking which is not new and can also be related to morbid obesity, knee pain and much difficulty with ambulation. Cardinal signs of severe reviewed with him. Cardiology follow-up in 4 months. Will plan for a repeat echo prior to that visit. He is aware of the need for diagnostic cardiac catheterization when aortic valve confirmed to be severe and symptomatic. (2) Persistent atrial fibrillation: Code(s): I48.19 - Other persistent atrial fibrillation Plan: History of persistent atrial fibrillation, likely chronic. Holter monitor done in 2020 for 3 days showed AFib with average heart rate 83. EKG today showed AFib, heart rate 79. He is on metoprolol for heart rate control. He is on Coumadin for anticoagulation with INR goal 2-3. He follows with [facility]. No bleeding issues reported. (3) Morbid obesity: Code(s): E66.01 - Morbid (severe) obesity due to excess calories Plan: He has not been able to lose weight due to his low physical activity level (4) Preop cardiovascular exam: Code(s): Z01.810 - Encounter for preprocedural cardiovascular examination Plan: Preop for colonoscopy.+ cologard test 12/12/2022. Unknown date. Case previously reviewed with Dr. Daigle. Patient is intermediate cardiac risk to proceed with this procedure. Patient informed of his risk for the procedure including RI, Congestive heart failure, arrhythmia, AFib RVR, stroke. He is agreeable to proceed. Avoid fluid overload, hypotension. Coumadin can be held for up to 5 days prior to the procedure and restarted as soon as cleared by surgeon to do so. Call/consult Cardiology if needed. Preop for lithotripsy procedure, unknown date. Intermediate risk as stated above. Patient informed of his risk for the procedure including RI, Congestive heart failure, arrhythmia, AFib RVR, stroke. He is agreeable to proceed. Avoid fluid overload, hypotension. Coumadin can be held for up to 5 days prior to the procedure and restarted as soon as cleared by surgeon to do so. Call/consult Cardiology if needed. His colonoscopy and lithotripsy should be at least 1 month apart due to his anticoagulation. Holding of anticoagulation increases his risk of stroke. Patient was informed of this fact. Plan Time spent on chart review, documentation, interview assessment Orders: Orders CA echo transthoracic complete 3 Months E66.01 - Morbid (severe) obesity due to excess calories Coding Level of Care Code Est Pt Level 4 (83154) Diagnoses Severe aortic stenosis I35.0 Persistent atrial fibrillation I48.19 Morbid obesity E66.01 Preop cardiovascular exam Z01.810 CPT Codes EKG - CPT: [id number], Complete ([id number]) Time Spent (min) 30
== END 2023-10-05 08:48 | disposition home or self-care (01) ==
PROVIDERS: PCP Nurse Practitioner Family; Visit Provider Nurse Practitioner Family
DX: I35.0 Nonrheumatic aortic (valve) stenosis (principal); I48.19 Other persistent atrial fibrillation; E66.01 Morbid (severe) obesity due to excess calories; Z01.810 Encounter for preprocedural cardiovascular examination
CPT/HCPCS: 93010; 99214

== ENCOUNTER → 2023-10-05 08:02 | Outpatient (BNVA) | payer MEDICARE, SELFPAY | PROVIDERS: PCP Nurse Practitioner Family; Visit Provider Nurse Practitioner Family | DX: I48.19 Other persistent atrial fibrillation (principal); Z79.01 Long term (current) use of anticoagulants; Z51.81 Encounter for therapeutic drug level monitoring; Z01.810 Encounter for preprocedural cardiovascular examination; I35.0 Nonrheumatic aortic (valve) stenosis; E66.01 Morbid (severe) obesity due to excess calories; Z68.42 Body mass index [BMI] 45.0-49.9, adult | CPT/HCPCS: 85610; 93005; 99211; 99212 ==

== ENCOUNTER 2023-10-05 09:10 | Outpatient (AMB) | payer MEDICARE, SELFPAY ==
[2023-10-05 09:24] LABS: Prothrombin Time Whole Bld POC 27.6 sec (11.1-13.5); ~PT, ~INR - Anti Coag Clinic 2.3 (0.9-1.1)
--- NOTE | 2023-10-05 09:31 | MHC.OFFVISCO ---
Intake Intake Visit Reasons: Anticoagulation Allergies No Known Allergies [No Known Allergies*] Allergy (Verified 10/05/23 09:19) Medication List - Last Reconciled 10/05/23 by Sarah Barreto RN atorvastatin 10 mg PO BEDTIME 90 days betamethasone dipropionate 0.05% 1 appl topical DAILY PRN 14 days cetirizine (Zyrtec) 10 mg PO DAILY PRN furosemide (Lasix) 40 mg PO DAILY hydrocortisone 2.5% 1 appl topical BID PRN metoprolol tartrate 100 mg orally 150mg am/ 50mg pm; oxycodone 10 mg PO DAILY PRN warfarin 1.25 mg See Protocol PO DAILY Nursing Note INR: 2.3 in therapeutic range pt arrived with sister via wheelchair, walking with bilat crutches is cumbersome due to pain, states he has several other Dr appoints and sounds agitated today, emotional support given with some effect, chart reviewed - he may have upcoming colonoscopy and possible lithotripsy - no dates at this time Medications and supplements reviewed- no changes No changes in health, diet, medications, or supplements,- CONTINUES TO GO TO THE WOUND CLINIC FOR BILAT LEG WOUND MANAGEMENT, Denies any signs and symptoms of bleeding or bruising or clotting. Bleeding, bruising, clotting discussed Nutritional guidance given - REVIEW FOOD LIST WEEKLY , EAT A MIX OF FRUITS AND VEGETABLES, HAVE SOME FOODS TO KEEP INR UP Dose: KEEP SAME 1.25MG DAILY F/U INR: 4 WEEKS PER PT REQUEST - SAME DAY WOUND CLINIC VISIT Patient verbalizes understanding of instructions given Anti-Coag Initial Assessment Social Hx Patient Tobacco Use Status: Former Tobacco user Quit Date: 7 years alcohol intake: current Alcohol intake frequency: 0-2 drinks per day Coding Level of Care Code Est Patient Level 1 Diagnoses Current use of anticoagulant therapy Z79.01 Assessment & Plan Assessment & Plan (1) Current use of anticoagulant therapy: Code(s): Z79.01 - jail (current) use of anticoagulants Category: Medical
== END 2023-10-05 09:50 | disposition home or self-care (01) ==
LOC: HO.ACS 09:10
PROVIDERS: PCP Nurse Practitioner Family; Visit Provider Internal Medicine
DX: Z79.01 Long term (current) use of anticoagulants (principal)

== ENCOUNTER 2023-10-13 08:56 | Outpatient (AMB) | payer MEDICARE, SELFPAY ==
--- NOTE | 2023-10-13 09:02 | MHC.PC.OV ---
Vital Signs 10/13/23 09:04 Height 6 ft Weight 332 lb BMI 45.0 BP 130/90 H Blood Pressure Location Rt brachial Position Sitting Intake Visit Reasons: Annual Physical Intake Note: Patient here for physical exam and would like to discuss pain meds for his leg pain. Allergies No Known Allergies [No Known Allergies*] Allergy (Verified 10/13/23 12:21) Medication List - Last Reconciled 10/13/23 by ERMA Pacheco- atorvastatin 10 mg PO BEDTIME 90 days betamethasone dipropionate 0.05% 1 appl topical DAILY PRN 14 days cetirizine (Zyrtec) 10 mg PO DAILY PRN furosemide (Lasix) 40 mg PO DAILY hydrocortisone 2.5% 1 appl topical BID PRN metoprolol tartrate 50 mg orally 2 tabs in am and 1 in pm; ( may not need refill yet) 90 days oxycodone 10 mg PO DAILY PRN warfarin 1.25 mg See Protocol PO DAILY Tobacco use date assessed: 10/13/23 Fall risk assessment: No Falls in past year Last assessed Fall Risk: 10/13/23 Dental Screening Dental Screen Date: 10/13/23 Did you have a dental visit in the last 12 months?: Yes Did you have a dental problem in the last 6 months where you did not have access to dental care?: No Was dental information given to patient?: Patient has dentist HPI Annual Physical HPI Details Pt is here for a PE. Will order labs. PSA is up to date. Denies dribbling with urination, weak stream, and frequent nocturia. Pt would like to wait on his colon screen until his kidney stones are dealt with. Wound care/[facility] for BLE wounds to legs. He is getting daily dressing changes, requesting pain medication for these treatments. Pt reports understanding the risk of addiction. He knows he cannot share them, drive while on them, operate machinery while on them. Will have pt sign a narcotic pain contract. Pt knows that the plan is to stop pain medications after his legs have healed. [facility] Medical History Abscess of knee, left Moderate aortic stenosis Persistent atrial fibrillation Atherosclerosis of [place] coronary artery of [place] heart with angina pectoris Dyslipidemia Sleep apnea Reactive depression Anxiety HTN (hypertension) Surgical History (Reviewed 10/13/23 @ 09:36 by Reji Delgado [employer] [facility]) History of incision and drainage Hx of carpal tunnel repair Status post ablation of incompetent vein using laser (~01/2022) History of revision of total replacement of left knee joint (~04/2016) History of total left knee replacement (~11/2015) History of evacuation of hematoma (~05/2015) History of total right knee replacement (TKR) (~04/2015) Family History Other Brain cancer Social History Household Members: Family Housing: House Do you presently have visiting nurse or other home services: No Alcohol intake: current Alcohol intake frequency: 0-2 drinks per day Comment: two canes Patient Tobacco Use Status: Former Tobacco user Quit Date: 7 years Years Smoked: 46+/- e-Cigarette/Vaping Use: Never Used Second Hand Smoke Exposure: No Substance Use Type: Marijuana Advance Directives Date on File: 03/05/22 service: No Current occupational status: previously employed and retired 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 Current occupational exposures/hazards: No Cognitive needs: No Hearing needs: No Vision needs: Yes Questionnaire PHQ-9 Over the last 2 weeks, how often have you been bothered by any of the following problems? 1. Little interest or pleasure in doing things: several days 2. Feeling down, depressed, or hopeless: several days 3. Trouble falling or staying asleep, or sleeping too much: nearly every day 4. Feeling tired or having little energy: more than half the days 5. Poor appetite or overeating: not at all 6. Feeling bad about yourself - or that you are a failure or have let yourself or your family down: not at all 7. Trouble concentrating on things, such as reading the newspaper or watching television: not at all 8. Moving or speaking so slowly that other people could have noticed. Or the opposite - being so fidgety or restless that you have been moving around a lot more than usual: not at all 9. Thoughts that you would be better off or of hurting yourself in some way: not at all Total score: 7 Depression Screening Interpretation: Negative Depression Screening Done: Yes 40014 - PHQ-9 Billing: Yes Source: Developed by Drs. Olivier Ann, Ken Rogers and colleagues, with an educational miller from [employer]. Thrive Questionnaire Date Thrive assessed: 10/13/23 I am a: Patient What is your living situation today?: I have a steady place to live Within the past 12 months, did the food you bought not last and you didn't have the money to get more?: Never true Within the past 12 months, did you worry whether your food would run out before you got money to buy more?: Never true Do you have trouble paying for medicines?: No Do you have trouble getting transportation to medical appointments?: No Do you have trouble paying your heating and electricity bill?: No Do you have trouble taking care of your child, family member or friend?: No Do you have trouble with day-to-day activities such as bathing, preparing meals, shopping, managing finances, etc.?: No Are you currently unemployed and looking for a job?: No Are you interested in more education?: No Currently or been in a relationship where the following occur: I choose not to answer this question THRIVE Score: 0 ENDY-7 AMB Questionnaire ENDY-7 Date ENDY - 7 assessed: 10/13/23 Feeling nervous, anxious, or on edge: 1 = Several days Not being able to stop or control worryin = Several days Worrying too much about different things: 1 = Several days Trouble relaxin = Several days Being so restless that it is hard to sit still: 1 = Several days Becoming easily annoyed or irritable: 1 = Several days Feeling afraid as if something awful might happen: 1 = Several days Total ENDY-7 score (0-4 normal; 5-9 mild; 10-14 moderate; 15-21 severe): 7 Source: Developed by Drs. Olivier Ann, Ken Rogers and colleagues, with an educational miller from [employer]. ENDY-7 Assessment Billing ENDY-7 Assessment Tool: ENDY-7 Assessment 11199 Review of Systems Const Denies chills and Denies fever(s) Eyes Denies blurry vision ENT Denies vertigo, Denies dizziness and Denies sore throat Card Denies chest pain at rest, Denies chest pain with activity, Denies diaphoresis, Denies dyspnea and Denies dyspnea on exertion Resp Denies cough, Denies dyspnea, Denies dyspnea on exertion and Denies wheezing GI Denies abdominal pain, Denies melena, Denies hematochezia, Denies constipation, Denies diarrhea and Denies loose stools Denies hematuria Musc Denies numbness and Denies tingling Skin/Breast Denies lesions Neuro Denies vertigo, Denies dizziness, Denies numbness and Denies tingling Psych Denies anxiety, Denies depression, Denies homicidal ideation, Denies suicidal ideation and Denies other (substance abuse) Aller/Immun Denies wheezing Physical exam (Primary Care) Vital Signs: Last Vital Signs BP 130/90 H 10/13/23 09:04 BMI result Body Mass Index 45.0 Tobacco/Smoking Status: Tobacco use Status Tobacco use date assessed 10/13/23 10/13/23 09:09 Patient Tobacco Use Status Former Tobacco user 10/13/23 09:03 e-Cigarette/Vaping Use Never Used 10/13/23 09:03 PHQ-9: PHQ-9 Score PHQ-9: Total score 7 10/13/23 10:23 Depression Screening Interpretation: Negative Thrive Assessment: Date of Thrive Assessment Date Thrive assessed 10/13/23 10/13/23 10:23 Currently or been in a relationship where the following occur: I choose not to answer this question Const Other: using double canes to assist with ambulation General: cooperative Nutritional Appearance: well nourished Orientation/consciousness: patient oriented x3 HENMT Head: Yes normal to inspection, Yes normocephalic and Yes atraumatic Ears: TM's normal bilaterally Eyes General: appearance normal, both eyes and all related structures Alignment and Position: alignment normal and position normal Neck Neck: Yes normal visual inspection and Yes no lymphadenopathy Thyroid: Thyroid normal Resp Effort & Inspection: normal respiratory effort Auscultation: clear to auscultation bilaterally Cardio Rate: regular rate Rhythm: abnormal rhythm irregularly irregular Heart sounds: S1 normal heart sound present, S2 normal heart sound present and Murmur heart sound present GI Palpation (GI): Soft to palpation and nontender Auscultation: normal bowel sounds Skin Rashes: no rashes Neuro General: patient oriented x3, moves all extremities, no focal motor deficits and deep tendon reflexes 2+ bilaterally Romberg Test: Negative Extrem Other: yumiko wraps to BLE are CD+I. Right lower extremity: edema Details: 1+ Left lower extremity: edema Details: 1+ Psych Appearance: grossly normal Mental Status: mental status grossly normal Speech and movement: Normal speech and movement present Affect: normal affect Attitude: cooperative Thought process: Normal thought process present Thought content: Normal thought content present Insight: Good insight present (Psych) Judgement: Good judgement present (Psych) Assessment and Plan Assessment & Plan (1) Physical exam: Code(s): Z00.00 - Encounter for general adult medical examination without abnormal findings Plan: Labs ordered Plan The patient agreed to the use of a medical scheduler for this encounter. Scribed for RIKKI Hannon by Valentine Rowe medical scheduler, on 10/13/2023 at 09:25 EST. Orders: Orders Complete Blood Count Auto Diff Today Z00.00 - Encounter for general adult medical examination without abnormal findings Comprehensive Flat Top. Panel Fast Today Z00.00 - Encounter for general adult medical examination without abnormal findings TSH reflex Free T4 Today Z00.00 - Encounter for general adult medical examination without abnormal findings UA CC w/rflx Micro + Cult Today Z00.00 - Encounter for general adult medical examination without abnormal findings Lipid Panel Today Z00.00 - Encounter for general adult medical examination without abnormal findings Medications: New amoxicillin take 45 minutes before dental procedure 2,000 mg (4 x 500 mg) PO ONCE 4 tabs 3RF 1 day Changed From oxycodone please take one tab 45 minutes before wound treatments 10 mg PO DAILY PRN 6 tabs 0RF pain-during wound treatments To oxycodone please take one tab 45 minutes before wound treatments 10 mg PO DAILY PRN 30 tabs 0RF pain-during wound treatments 30 days Coding Level of Care Code Est Pt Prev Care >65y(70402) Diagnoses Physical exam Z00.00 Additional Codes ENDY-7 Assessment Billing - ENDY-7 Assessment Tool: ENDY-7 Assessment 90493 ([id number])
[2023-10-13 09:04] VITALS: BP 130/90; BMI 45.0
== END 2023-10-13 09:56 | disposition home or self-care (01) ==
PROVIDERS: PCP Nurse Practitioner Family; Visit Provider Nurse Practitioner Family
DX: Z00.00 Encounter for general adult medical examination without abnormal findings (principal)
CPT/HCPCS: 99397

== ENCOUNTER 2023-10-30 08:07 | Outpatient (AMB) | payer MEDICARE, SELFPAY ==
[2023-10-30 08:15] LABS: Prothrombin Time Whole Bld POC 26.8 sec (11.1-13.5); ~PT, ~INR - Anti Coag Clinic 2.2 (0.9-1.1)
--- NOTE | 2023-10-30 08:18 | MHC.OFFVISCO ---
Intake Intake Visit Reasons: Anticoagulation Allergies No Known Allergies [No Known Allergies*] Allergy (Verified 10/30/23 08:08) Medication List - Last Reconciled 10/30/23 by Ana Maria Patino RN amoxicillin 2,000 mg (4 x 500 mg) PO ONCE 1 day atorvastatin 10 mg PO BEDTIME 90 days betamethasone dipropionate 0.05% 1 appl topical DAILY PRN 14 days cefuroxime axetil 250 mg PO BID cetirizine (Zyrtec) 10 mg PO DAILY PRN furosemide (Lasix) 40 mg PO DAILY hydrocortisone 2.5% 1 appl topical BID PRN metoprolol tartrate 50 mg orally 2 tabs in am and 1 in pm; ( may not need refill yet) 90 days oxycodone 10 mg PO DAILY PRN 30 days warfarin 1.25 mg See Protocol PO DAILY Nursing Note To ACS via WC, bilat lower legs wrapped in dressings, pt to wound clinic weekly INR: 2.2 in therapeutic range Medications and supplements reviewed, started on ceftrioxime 10/22 x 10 days (no warfarin interaction) No other changes in health, diet, medications, or supplements, Denies any signs and symptoms of bleeding or bruising or clotting. 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
== END 2023-10-30 08:24 | disposition home or self-care (01) ==
LOC: HO.ACS 08:07
PROVIDERS: PCP Nurse Practitioner Family; Visit Provider Internal Medicine
DX: Z79.01 Long term (current) use of anticoagulants (principal)

== ENCOUNTER → 2023-10-30 08:07 | Outpatient (BNVA) | payer MEDICARE, SELFPAY | PROVIDERS: PCP Nurse Practitioner Family; Visit Provider Internal Medicine | DX: I48.19 Other persistent atrial fibrillation (principal); Z51.81 Encounter for therapeutic drug level monitoring; Z79.01 Long term (current) use of anticoagulants | CPT/HCPCS: 85610; 99211 ==

== ENCOUNTER 2023-11-23 03:07 | Inpatient (IN) | payer MEDICARE, SELFPAY ==
[2023-11-23] VITALS (54 sets, daily range): BP systolic 71–125; BP diastolic 5–72; PULSE 76–136; RESP 14–25; TEMP 35.7–37.7; O2SAT 92–100; BMI 42.7
--- NOTE | 2023-11-23 | ECG_ITS ---
Test Reason : AFIB Blood Pressure : / mmHG Vent. Rate : 125 BPM Atrial Rate : 000 BPM P-R Int : 000 ms QRS Dur : 100 ms QT Int : 316 ms P-R-T Axes : 000 -04 193 degrees QTc Int : 456 ms Atrial fibrillation with rapid ventricular response Low voltage QRS Cannot rule out Anterior infarct (cited on or before 23-NOV-2023) ST & T wave abnormality, consider lateral ischemia Abnormal ECG When compared with ECG of 21-APR-2023 16:30, Serial changes of Anterior infarct Present Referred By: Generic ED Physician Electronically Signed By:ADRI IRAHETA MD
--- NOTE | ~2023-11-23 | US_ITS ---
EXAMINATION: US ABDOMEN LIMITED CLINICAL INFORMATION: Hepatobiliary examination for transaminitis. COMPARISON: CT abdomen from 11/26/2023 TECHNIQUE: Real-time imaging of the right upper quadrant abdominal viscera. FINDINGS: PANCREAS: Visualized portions of the pancreas are unremarkable, the body and tail are not well visualized. LIVER: Increased hepatic echogenicity suggesting hepatic steatosis.. The liver is normal in size. The liver contour is normal. No focal hepatic lesion. There is no intrahepatic biliary duct dilatation seen. GALLBLADDER: Normal. The gallbladder is physiologically distended without evidence of stones, sludge, polyps, wall thickening or pericholecystic fluid. COMMON BILE DUCT: Normal in caliber measuring 0.3 cm in diameter. RIGHT KIDNEY: Normal. No hydronephrosis. No renal calculi or focal parenchymal lesions. The kidney measures 12.2 cm in maximum dimension. FREE FLUID: None. US/US abdomen limited IMPRESSION: Increased hepatic echogenicity suggesting hepatic steatosis.
--- NOTE | ~2023-11-23 | XR_ITS ---
EXAMINATION: XR CHEST CLINICAL INFORMATION: Intubation COMPARISON: Chest radiograph from 11/26/2023 TECHNIQUE: Frontal view of the chest was obtained. FINDINGS: Enteric tube courses below left hemidiaphragm into the stomach out of the [id number]. Endotracheal tube approximately 6.8 cm from the level of derik. Bilateral low lung volumes. Bibasilar atelectasis. Prominence of pulmonary vasculature. No pneumothorax. Trachea is midline. Cardiac mediastinal silhouette is stable. Aorta demonstrates atherosclerotic calcifications. No large pleural effusion. Osseous structures are intact. Soft tissues are unremarkable. XR/XR chest 1V IMPRESSION: 1. Enteric tube courses below left hemidiaphragm into the stomach out of the [id number]. 2. Endotracheal tube approximately 6.8 cm from the level of derik. 3. Bilateral low lung volumes. 4. Bibasilar atelectasis. 5. Prominence of the pulmonary vasculature.
--- NOTE | ~2023-11-23 | XR_ITS ---
EXAMINATION: XR CHEST CLINICAL INFORMATION: Shortness of breath tachycardia question pneumonia COMPARISON: Chest radiograph from 11/23/2023 TECHNIQUE: Frontal view of the chest was obtained. FINDINGS: Bilateral low lung volumes. Slight bibasilar atelectasis. Potential trace left pleural effusion. No pneumothorax. Trachea is midline. Cardiac mediastinal silhouette is stable. Aorta demonstrates atherosclerotic calcifications. Osseous structures are intact. Soft tissues are unremarkable. XR/XR chest 1V IMPRESSION: 1. Bilateral low lung volumes. 2. Slight bibasilar atelectasis. 3. Potential trace left pleural effusion.
--- NOTE | ~2023-11-23 | US_ITS ---
EXAMINATION: US EXTREMITY, NONVASCULAR CLINICAL INFORMATION: Right groin hematoma. COMPARISON: None available. TECHNIQUE: Ultrasound of the right groin was performed. US/US extremity nonvascular FINDINGS / IMPRESSION: No right groin hematoma is visualized.
--- NOTE | ~2023-11-23 | US_ITS ---
EXAMINATION: US VENOUS ULTRASOUND WITH DOPPLER LOWER EXTREMITY, LEFT CLINICAL INFORMATION: Edema. Cellulitis. COMPARISON: None available. TECHNIQUE: Ultrasound of the deep veins is performed from the hip to the calf with compression sonography and color and pulse Doppler assessment. Spectral analysis with color-flow imaging is performed. FINDINGS: There is normal venous compression and respiratory variation and augmented flow. The visualized common femoral vein, superficial femoral vein, profunda femoral vein, popliteal vein, and the trifurcation region shows no evidence of deep venous thrombosis. The left peroneal vein is not visualized. There is no significant popliteal fossa cyst. If the patient's symptoms persist, followup ultrasound in 5 days 7 days might be of value to exclude proximal propagation from a non-visualized calf vein. US/US venous duplex LE IMPRESSION: No DVT demonstrated in the left lower extremity. Please note, the left peroneal vein is not visualized.
--- NOTE | ~2023-11-23 | FL_ITS ---
Attempted fluoroscopic nasojejunal tube placement Indications: Partial gastric outlet obstruction and CT scan. Gastroenterology requests postpyloric feeding tube Procedure: The patient was placed supine on the fluoroscopic table with the head of the table tilted to 30 degrees to minimize risk of aspiration. A0.035 stiff Glidewire was inserted through the patient's existing nasogastric tube and coiled in the stomach. The nasogastric tube was removed over the wire. A 4 [place] Berenstein catheter was advanced over the Glidewire. Multiple attempts were made to direct the wire postpyloric. The wire was able to be passed into the first portion the duodenum, however, the catheter could not be advanced. Over the wire, a 10 [place] soft flexible feeding tube was advanced and positioned in the distal stomach. The tube was secured with tape. There were no immediate complications FL/FL drain tube change Impression: Unsuccessful fluoroscopic placement of a nasojejunal tube due to a partial gastric outlet obstruction. A soft flexible nasogastric tube was placed in the distal stomach. The procedure was performed by Evangelist Jensen PA-C, and directly supervised by Dr. Quinn.
--- NOTE | ~2023-11-23 | CT_ITS ---
EXAMINATION: CT EXTREMITY WITHOUT CONTRAST, LEFT LOWER CLINICAL INFORMATION: Left leg cellulitis COMPARISON: None available. TECHNIQUE: CT through the left leg was performed from the upper thigh through the foot. Sagittal and coronal reconstructions were performed. This CT examination was performed using dose optimization techniques as appropriate, variously including the following: *Automated exposure control *Adjustment of mA and/or kV according to patient size (this includes techniques or standardized protocols for targeted exams where dose is matched to indication/reason for exam; i.e. extremities or head) *Use of iterative reconstruction technique DLP: 1005 mGy-cm FINDINGS: There is a total knee prosthesis in place which creates artifact markedly obscuring detail. There is soft tissue and skin thickening present in the left thigh which appears significantly increased when compared to the right leg. Moderate edema is present in the subcutaneous fat. No subcutaneous air is seen. No focal fluid collection is seen. The knee prosthesis appears intact. No periprosthetic fractures are seen. No ankle or foot fracture is seen. CT/CT lower leg LT wo IV con IMPRESSION: Skin thickening and subcutaneous edema in the left leg without evidence of a focal fluid collection or subcutaneous air.
--- NOTE | ~2023-11-23 | CT_ITS ---
EXAMINATION: CT HEAD WITHOUT CONTRAST CLINICAL INFORMATION: Status post cardiac arrest COMPARISON: None available. TECHNIQUE: Contiguous axial imaging was performed from the skull base to vertex without intravenous administration of contrast. This CT examination was performed using dose optimization techniques as appropriate, variously including the following: *Automated exposure control *Adjustment of mA and/or kV according to patient size (this includes techniques or standardized protocols for targeted exams where dose is matched to indication/reason for exam; i.e. extremities or head) *Use of iterative reconstruction technique DLP: 902 mGy-cm FINDINGS: There is no evidence of acute intracranial hemorrhage or territorial infarction. Chronic white matter small vessel ischemic changes. Cerebral atrophy with commensurate ventricular changes. No abnormal mass effect or midline shift is seen. [place] to white matter differentiation is well preserved. No extra-axial fluid collections are identified. The ventricles are normal in size. There is no abnormal attenuation within the brain parenchyma. The osseous structures and soft tissues are normal. Opacification of the left maxillary sinus. The mastoid air cells and visualized portions of the paranasal sinuses are well aerated. CT/CT head/brain wo IV con IMPRESSION: 1. No acute intracranial pathology. 2. Chronic white matter small vessel ischemic changes. 3. Cerebral atrophy with commensurate ventricular changes. 4. Opacification of the left maxillary sinus.
--- NOTE | ~2023-11-23 | XR_ITS ---
EXAMINATION: XR CHEST CLINICAL INFORMATION: Shortness of breath COMPARISON: 07/22/2023 TECHNIQUE: Frontal view of the chest was obtained. FINDINGS: Lung volumes are symmetric. No focal consolidation is seen. There is suggestion of minimal bibasilar atelectasis. No evidence of pneumothorax, significant pleural effusion, or pulmonary edema. Cardiac silhouette appears mildly enlarged. Calcification is present at the aortic arch. No acute osseous findings are seen. XR/XR chest 1V IMPRESSION: Suggestion of minimal bibasilar atelectasis without additional acute findings.
--- NOTE | ~2023-11-23 | CT_ITS ---
EXAMINATION: CT ABDOMEN AND PELVIS WITHOUT CONTRAST CLINICAL INFORMATION: Acute renal failure. Abdominal pain. COMPARISON: 06/30/2023 TECHNIQUE: Multidetector volumetric imaging was performed from the superior aspect of the liver through the pubic symphysis. Sagittal and coronal reformatted images were obtained on the technologist's workstation. This CT examination was performed using dose optimization techniques as appropriate, variously including the following: *Automated exposure control *Adjustment of mA and/or kV according to patient size (this includes techniques or standardized protocols for targeted exams where dose is matched to indication/reason for exam; i.e. extremities or head) *Use of iterative reconstruction technique DLP: 1023 mGy-cm FINDINGS: Imaged but is technically degraded by motion artifact. LUNG BASES: No pleural or pericardial effusion. LIVER, GALLBLADDER, AND BILIARY TREE: The noncontrast liver is normal in size and contour. No biliary ductal dilatation is present. The gallbladder is distended. PANCREAS: There is edema and enlargement of the pancreatic head. Diffuse pancreatic parenchymal edema. No ductal dilatation. There is extensive peripancreatic stranding. There is fluid in the anterior pararenal spaces. SPLEEN: Not enlarged. ADRENAL GLANDS: No adrenal mass. KIDNEYS AND URETERS: The kidneys are symmetric in size. There is a 4 mm nonobstructing calculus in the mid pole of the right kidney. No right hydronephrosis. 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 There is a 9 mm nonobstructing calculus in the upper to midpole of the left kidney. No left hydronephrosis. BLADDER: Decompressed. GASTROINTESTINAL TRACT: No small bowel obstruction. LYMPH NODES: Enlarged left common iliac, external iliac, iliac chain, obturator and inguinal lymph nodes. VASCULAR: Marked atherosclerotic vascular calcification. No abdominal aortic aneurysm. PELVIC VISCERA: Unremarkable. OSSEOUS STRUCTURES: Avascular necrosis of the left femoral head. Sclerosis and height loss at the L3 vertebral body. Severe degenerative changes of the thoracolumbar spine. Hyperdensity and enlargement of the right adductor musculature. There is marked infiltration of the subcutaneous tissues of the right line. There are small foci of gas. There is a central venous access line. CT/CT abdomen pelvis wo IV con IMPRESSION: Again enlargement of the pancreatic head with diffuse pancreatic parenchymal edema and extensive peripancreatic stranding. This most likely represents acute pancreatitis. Interval placement of right groin central venous catheter with hyperdensity and enlargement the right abductor musculature likely representing underlying hematoma. Bilateral nonobstructing renal calculi. No hydronephrosis. Gallbladder distention. Lymphadenopathy involving the LEFT common iliac, external iliac, iliac chain and inguinal regions. This lymphadenopathy is unchanged from 06/30/2023.
--- NOTE | ~2023-11-23 | XR_ITS ---
EXAMINATION: XR CHEST CLINICAL INFORMATION: NG tube placement COMPARISON: Chest 11/26/2023 TECHNIQUE: Frontal view of the chest was obtained. FINDINGS: There is a nasogastric tube with its tip in the stomach. Endotracheal tube has been removed. The lungs are hypoexpanded with bibasilar atelectasis. Heart size is enlarged. Pulmonary vascularity is prominent. No gross bony abnormality is seen. XR/XR chest 1V IMPRESSION: 1. NG tube tip is in the stomach. Endotracheal tube has been removed. 2. Hypoexpanded lungs with bibasilar atelectasis. 3. Mild cardiomegaly. 4. No major change in the cardiopulmonary process from 11/26/2023
--- NOTE | ~2023-11-23 | CT_ITS ---
EXAMINATION: CT ABDOMEN AND PELVIS WITHOUT CONTRAST CLINICAL INFORMATION: Reason for Exam aspiration, ?obstruction vs ileus COMPARISON: 11/26/2023 TECHNIQUE: Multidetector volumetric imaging was performed from the superior aspect of the liver through the pubic symphysis. Oral contrast was administered. Sagittal and coronal reformatted images were obtained on the technologist's workstation. This CT examination was performed using dose optimization techniques as appropriate, variously including the following: *Automated exposure control *Adjustment of mA and/or kV according to patient size (this includes techniques or standardized protocols for targeted exams where dose is matched to indication/reason for exam; i.e. extremities or head) *Use of iterative reconstruction technique DLP: 1586 mGy-cm FINDINGS: LUNG BASES: There are dense regions of opacity in the bilateral lower lobes which represent a combination of atelectasis and consolidation. Additional multifocal groundglass opacities are present bilaterally. Coronary artery calcifications are present. LIVER, GALLBLADDER, AND BILIARY TREE: The liver is normal in size, shape, and attenuation. No focal hepatic lesion or biliary ductal dilatation is identified on this noncontrast exam. The gallbladder is unremarkable with no evidence of radiopaque gallstones, gallbladder wall thickening, or obvious pericholecystic inflammatory changes. PANCREAS: Suboptimally assessed without intravenous contrast. There is a persistent edematous appearance of the pancreas with mild to moderate peripancreatic stranding suspicious for pancreatitis. No definite fluid collections are seen on this noncontrast exam. SPLEEN: Unremarkable. ADRENAL GLANDS: Unremarkable. KIDNEYS AND URETERS: No hydronephrosis or obstructing calculus bilaterally. Redemonstrated bilateral renal calculi measuring up to 8 mm in the left upper pole. BLADDER: Decompressed with a Gamino catheter in place. GASTROINTESTINAL TRACT: Oral contrast material is present in the stomach. There is some narrowing of the proximal duodenum, possibly secondary to the adjacent peripancreatic inflammation resulting in a component of gastric outlet obstruction. Smaller amount of contrast is present within multiple nondilated small bowel loops in the abdomen/pelvis. Mild to moderate volume of stool is present throughout the nondilated colon. Moderate stool is present in the rectum. Limited evaluation for wall thickening within some segments of the colon due to luminal collapse. Scattered diverticulosis is noted. There is mild nonspecific stranding throughout regions of the mesentery. Appendix appears near the upper limits of normal in size, without focal inflammatory change. No free air is seen. ABDOMINAL WALL: Small fat-containing inguinal hernias. LYMPH NODES: Normal. VASCULAR: There is atherosclerotic calcification along the aorta and iliac arteries. Right IJ femoral catheter lies along the periphery of the external iliac vein; correlation with catheter function is recommended. PELVIC VISCERA: Unremarkable. OSSEOUS STRUCTURES: Multilevel degenerative changes in the spine. Redemonstrated findings of avascular necrosis of the left femoral head. CT/CT abdomen pelvis wo IV con IMPRESSION: 1. Persistent edematous appearance of the pancreas with mild to moderate peripancreatic stranding suspicious for pancreatitis. No definite fluid collections are seen on this noncontrast exam. 2. No significant bowel dilation to suggest obstruction or ileus. Of note, much of the oral contrast remains in the stomach, with a narrowed appearance of the proximal duodenum adjacent to the inflamed pancreas; a component of gastric outlet obstruction cannot be excluded. 3. Dense regions of pulmonary opacity in the bilateral lower lobes which represent a combination of atelectasis and consolidation. Additional multifocal groundglass opacities are noted. 4. Right IJ femoral catheter lies along the periphery of the external iliac vein; intraluminal location of the tip cannot be definitively confirmed on CT, and correlation with catheter function is recommended.
--- NOTE | ~2023-11-23 | XR_ITS ---
EXAMINATION: XR CHEST CLINICAL INFORMATION: Status post ET tube placement. COMPARISON: 11/29/2023 TECHNIQUE: Frontal view of the chest was obtained. FINDINGS: Interval intubation, ET tube approximately 3.5 cm above the derik. NG tube remains well positioned, distal tip not included. Heart size is upper limits of normal, aortic calcifications again seen. There is visualization of the right minor fissure. Central vascularity appears prominent. Increasing opacity left base with costophrenic angle blunting. DEgenerative changes 20. XR/XR chest 1V IMPRESSION: Interval intubation. Left base opacity and costophrenic angle blunting suspicious for consolidation and effusion. Right horizontal fissural fluid, central vascular congestion not excluded.
--- NOTE | ~2023-11-23 | CT_ITS ---
EXAMINATION: CT ABDOMEN AND PELVIS WITHOUT CONTRAST CLINICAL INFORMATION: Pancreatitis COMPARISON: CT abdomen pelvis 11/23/2023, 3 days ago TECHNIQUE: Multidetector volumetric imaging was performed from the superior aspect of the liver through the pubic symphysis. Sagittal and coronal reformatted images were obtained on the technologist's workstation. This CT examination was performed using dose optimization techniques as appropriate, variously including the following: *Automated exposure control *Adjustment of mA and/or kV according to patient size (this includes techniques or standardized protocols for targeted exams where dose is matched to indication/reason for exam; i.e. extremities or head) *Use of iterative reconstruction technique DLP: 2366 mGy-cm FINDINGS: LUNG BASES: There is new bibasilar atelectasis is present along with small pleural effusions. LIVER, GALLBLADDER, AND BILIARY TREE: The liver is normal in size, shape, and attenuation. No focal hepatic lesion or biliary ductal dilatation is present. The gallbladder is unremarkable with no evidence of radiopaque gallstones, gallbladder wall thickening, or obvious pericholecystic inflammatory changes. PANCREAS: Mild edematous changes are present around the pancreas not significantly changed from prior. No pancreatic pseudocysts are seen. No ductal dilatation or ductal stones are seen. SPLEEN: Spleen is now normal in size. ADRENAL GLANDS: Unremarkable. KIDNEYS AND URETERS: The kidneys are normal in size, shape, and attenuation. There is an 8 mm nonobstructing left upper pole renal calculus again noted. Tiny punctate right renal calculus again seen. No hydronephrosis or hydroureter. Small right lateral subcortical fat density could represent a AML, but could represent an area of scarring with fatty invagination. In either case, the finding is not worrisome in needs no additional imaging or follow-up. No suspicious renal masses are seen. No perinephric stranding. BLADDER: Gamino catheter is present in the bladder which cannot be evaluated. GASTROINTESTINAL TRACT: An NG tube is present with its tip in the gastric fundus. The small and large bowel are unremarkable by from some scattered colonic diverticula without diverticulitis. No evidence of appendicitis. ABDOMINAL WALL: No significant hernia is appreciated. Tiny inguinal hernias containing only fat. LYMPH NODES: No retroperitoneal lymphadenopathy. VASCULAR: Calcific atherosclerotic changes are present in the aorta and iliofemoral vessels. There is no evidence of an abdominal aortic aneurysm. PELVIC VISCERA: The prostate and seminal vesicles are unremarkable. OSSEOUS STRUCTURES: Degenerative changes are present throughout the spine with mild scoliosis. There is sclerotic change in the L3 vertebral body with some mild anterior wedging which is new when compared to 06/30/2023 study but appears unchanged from the study from 3 days ago. There is avascular necrosis of the left femoral head CT/CT abdomen pelvis wo IV con IMPRESSION: 1. Mild edematous changes around the pancreas consistent with pancreatitis. No pancreatic pseudocysts are seen. Findings are unchanged when compared to the study of 3 days ago. 2. New bibasilar atelectasis and small pleural effusions. 3. Other incidental findings as described above including bilateral nonobstructing renal calculi, colonic diverticulosis, avascular necrosis left femoral head and degenerative changes in the spine with mild anterior wedging of L3. Fleischner guidelines were followed.
--- NOTE | ~2023-11-23 | CT_ITS ---
EXAMINATION: CT CHEST WITHOUT CONTRAST CLINICAL INFORMATION: Shortness of breath COMPARISON: Chest x-ray December 01, [address] scan abdomen pelvis December 01, 2023 TECHNIQUE: Multidetector volumetric CT imaging of the chest was done. Axial MIP volume rendering provided. Sagittal and coronal reformatted images were obtained. This CT examination was performed using dose optimization techniques as appropriate, variously including the following: *Automated exposure control *Adjustment of mA and/or kV according to patient size (this includes techniques or standardized protocols for targeted exams where dose is matched to indication/reason for exam; i.e. extremities or head) *Use of iterative reconstruction technique DLP: 661 mGy-cm FINDINGS: Exam limited by body habitus, and breathing motion. LUNGS: Bibasilar dependent consolidation/atelectasis. Patchy groundglass opacities also present in the right lung most significant at the upper lobe. MEDIASTINUM: Heart size enlarged. No pericardial effusion. No mediastinal mass or significant lymphadenopathy. Enteric catheter in the esophagus. Vascular wall calcifications of aorta. No aneurysm of the aorta. CORONARY ARTERY CALCIFICATION: Moderate volume of coronary artery calcifications. PLEURA: Small dependent bilateral pleural effusions. AXILLA: No lymphadenopathy. UPPER ABDOMEN: Nonobstructive 8 mm stone upper pole left kidney. Persistent edematous appearance of the pancreas. OSSEOUS STRUCTURES: Multilevel degenerative spondylosis spine. There are minimally displaced fractures of the anterior left fourth through sixth ribs. Old healed fractures of the posterior right 11th and ninth ribs. CT/CT chest wo IV con IMPRESSION: 1. Exam limited by body habitus and breathing motion. 2. Bibasilar dependent consolidation/atelectasis. Patchy groundglass opacities also present in the right lung most significant at the upper lobe. 3. Small dependent bilateral pleural effusions. 4. Cardiomegaly. 5. Enteric catheter in esophagus. 6. Nonobstructive 8 mm stone upper pole left kidney. 7. Persistent edematous appearance of the pancreas. 8. Fractures of the anterior left fourth through sixth ribs. Fleischner guidelines were followed.
[2023-11-23 03:33] LABS: Hematocrit 24.2 % (42.0-52.0); Hemoglobin 8.4 g/dl (14.0-18.0); Mean Corpuscular HGB Conc 34.7 g/dl (31.0-36.0); Mean Corpuscular Hemoglobin 28.7 pg (27.0-33.0); Mean Corpuscular Volume 82.6 fL (80.0-98.0); Mean Platelet Volume 9.4 fL (9.4-12.4); Platelet Count 432 X10*3/uL (160-400); Red Blood Count 2.93 X10*6/uL (4.60-5.80); Red Cell Distribution Width 15.1 % (11.0-16.0); White Blood Count 20.1 X10*3/uL (4.8-10.8)
[2023-11-23 03:47] LABS: Prothrombin Time > 320.0 SEC (11.1-13.3)
[2023-11-23 03:52] LABS: B Type Natriuretic Peptide 427 pg/mL (<100); Neutrophils Percent Manual 74 % (45-73)
[2023-11-23 03:53] LABS: Band Neutrophils Percent 21 % (3-5); Lymphocytes Absolute Manual 0.2 X10*3/uL (1.2-4.9); Lymphocytes Percent Manual 1 % (20-40); Monocytes Absolute Manual 0.8 X10*3/uL (0.1-1.2); Monocytes Percent Manual 4 % (2-11); Neutrophils Absolute Manual 19.1 X10*3/uL (2.0-8.3); Troponin-I High Sensitivity 60.7 ng/L (<3.5-35.0)
[2023-11-23 03:54] LABS: Alanine Aminotransferase 26 U/L (0-40); Albumin Level 2.8 g/dL (3.5-5.0); Alkaline Phosphatase 91 U/L (39-117); Anion Gap 27 (12-20); Aspartate Amino Transferase 77 U/L (5-37); Bilirubin Total 0.8 mg/dL (0.0-1.0); Blood Urea Nitrogen 122 mg/dL (9-16); Calcium 8.1 mg/dL (8.4-10.2); Carbon Dioxide 16 mmol/L (22-29); Chloride 95 mmol/L (96-108); Creatinine Clr Calc Pharmacy 19.6; Estimated Glomerular Filt Rate 12; Glucose Random 130 mg/dL (60-115); Potassium 3.6 mmol/L (3.3-5.1); Sodium 134 mmol/L (135-145); Total Protein 6.4 g/dL (6.5-8.0)
[2023-11-23 03:55] LABS: RBC Morphology NOTED
[2023-11-23 03:56] LABS: Burr Cells 1+ (0-2) /OIF; Large Platelet PRESENT; Platelet Estimate NORMAL (NORMAL); Platelet Morphology Comment NOTED; Polychromasia 1+ (0-2) /OIF; Toxic Vacuolation PRESENT
[2023-11-23 03:57] LABS: INTERNATIONAL NORM RATIO > 26.0 (0.9-1.1)
[2023-11-23] MEDS: Piperacillin Sodium/Tazobactam 4.5 GM in 0.9 % Sodium Chloride 100 ML IV (04:18)
--- NOTE | 2023-11-23 04:39 | PC.NURSE ---
attempted x 3 for second set of blood cultures - unsuccessful . 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
[2023-11-23 05:11] LABS: Appearance Urine Clear; Color Urine Yellow; Glucose Urine UA Negative (Negative); Leukocyte Esterase Urine Negative (Negative); Nitrite Urine Negative (Negative); PH 5.5 (5.0-9.0); Specific Gravity - Urine 1.015 (1.005-1.025); UMIC TRIGGER UACC YES; Urine Blood Negative (Negative); Urine Ketones Negative (Negative); Urine Protein 30 (1+) mg/dL (Neg-Trace)
[2023-11-23 05:13] LABS: Bacteria Urine None Seen (None Seen); RBC Urine 0-2 /HPF (0-2); WBC Urine 0-5 /HPF (0-5)
[2023-11-23 05:36] LABS: Reflex Lactate? Lactic Acid Added
--- NOTE | 2023-11-23 06:13 | ED.GENADULT ---
HPI - General Adult General Chief complaint: Arrhythmia/Palpitations Stated complaint: weakness/abd pain Time Seen by Provider: 11/23/23 03:42 History of Present Illness HPI narrative: Patient is a 73-year-old male with a history of atrial fibrillation on Coumadin. 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 Presented today with weakness patient stood up feel his legs are very weak. Had nonspecific abdominal pain. Patient unable to give details. Been compliant with taking his medications. Patient did not notice any black stool. Related Data Home Medications ?Medication ?Instructions ?Recorded ?Confirmed cetirizine 10 mg capsule (Zyrtec) 10 mg PO DAILY PRN allergies 04/03/23 10/30/23 cefuroxime axetil 250 mg tablet 250 mg PO BID 10/30/23 10/30/23 Previous Rx's ?Medication ?Instructions ?Recorded betamethasone dipropionate 0.05 % 1 appl topical DAILY PRN skin 09/12/21 topical cream irritation 14 days #45 grams hydrocortisone 2.5 % topical cream 1 appl topical BID PRN skin 11/26/21 irritation #20 grams warfarin 2.5 mg tablet 1.25 mg PO DAILY #90 tabs 12/15/22 furosemide 40 mg tablet (Lasix) 40 mg PO DAILY #90 tabs 05/21/23 atorvastatin 10 mg tablet 10 mg PO BEDTIME 90 days #90 tabs 09/08/23 metoprolol tartrate 50 mg tablet 50 mg PO .COMPLEX 90 days #270 tabs 10/09/23 amoxicillin 500 mg tablet 2,000 mg (4 x 500 mg) PO ONCE 1 10/13/23 day #4 tabs oxycodone 10 mg tablet 10 mg PO DAILY PRN pain-during 10/13/23 wound treatments 30 days #30 tabs Allergies Allergy/AdvReac Type Severity Reaction Status Date / Time No Known Allergies Allergy Verified 11/23/23 03:43 [No Known Allergies*] Review of Systems Review of Systems: Positive weakness Positive abdominal pain PMFSH Past Medical History Attestation statement: The following information was validated with the patient. 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 Dyslipidemia Sleep apnea Reactive depression Anxiety HTN (hypertension) Surgical History History of incision and drainage Hx of carpal tunnel repair Status post ablation of incompetent vein using laser (~01/2022) History of revision of total replacement of left knee joint (~04/2016) History of total left knee replacement (~11/2015) History of evacuation of hematoma (~05/2015) History of total right knee replacement (TKR) (~04/2015) Family History Family History Other Brain cancer Social History Social History Household Members: Family Housing: House Do you presently have visiting nurse or other home services: No Alcohol intake: current Alcohol intake frequency: a few times a week Alcohol type: beer Comment: two canes Patient Tobacco Use Status: Former Tobacco user Quit Date: 7 years Years Smoked: 46+/- Smoked in Last 30 Days: No e-Cigarette/Vaping Use: Never Used Second Hand Smoke Exposure: No Use of substances other than those prescribed or required for medical reasons: No Substance Use Type: Marijuana Advance Directives: Yes Advance Directives on File: Yes Advance Directives Date on File: 03/05/22 Do you have a plan to hurt others: No Plan service: No Current occupational status: previously employed and retired 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 Current occupational exposures/hazards: No Cognitive needs: No Hearing needs: No Vision needs: Yes Physical Exam ED Vital Signs: Vital Signs - 24 hr 11/23/23 03:39 11/23/23 04:28 11/23/23 05:51 Temperature 98.8 F 98.4 F Pulse Rate 136 H 111 H 101 H Respiratory Rate 20 16 18 Blood Pressure 86/47 L 84/5 L 72/27 L Pulse Oximetry 97 Oxygen Delivery Method Room Air 11/23/23 06:06 Temperature Pulse Rate 97 Respiratory Rate 25 H Blood Pressure 79/38 L Pulse Oximetry Oxygen Delivery Method BMI result Body Mass Index 42.7 Appearance: Alert. Oriented X3. Sick appearing large male Eyes: Pupils equal, round and reactive to light. ENT: Pharynx normal. Neck: Normal inspection. Neck supple. No lymph nodes noted. No crepitus CVS: Tachycardic and irregular Respiratory: No respiratory distress. Breath sounds normal. No Wheezing. No rales Abdomen: Soft and nontender. No rigidity. No distention. good BS x4 Skin: Bilateral lower extremity with chronic wound noted. Distal pulses intact. Sensation intact Rectal exam showed black stool strongly heme-positive Extremities: 3+ pitting edema bilateral lower extremity. Neurovascular intact to all extremities. No Lacerations. Neuro: Oriented X 3. No motor deficit. No sensory deficit. Moving all extermities. No slurred speech Medications Administered Discontinued Medications Generic Name Dose Route Start Last Admin Trade Name Freq PRN Reason Stop Dose Admin Sodium Chloride 4,286.46 mls @ 4,286.46 mls/hr 11/23/23 04:01 11/23/23 04:01 Ns 30 ml/kg infuse over 1 hr (4286.46 ml) 11/23/23 05:00 4,286.46 mls/hr IV Administration .Q1H STA Piperacillin Sod/Tazobactam 100 mls @ 200 mls/hr 11/23/23 04:03 11/23/23 05:19 Sod 4.5 gm/ Sodium Chloride IV 11/23/23 04:32 Infused ONCE ONE Infusion Procedures Central Line Placement Right Femoral: Time Out Performed: Yes Patient Placed on Monitor/Pulse Ox: Yes MD Prep: mask, gown and gloves Central Line Prep: Povidone-Iodine 1% Local Anesthetic: lidocaine 1% Amount of anesthesia used (mL): 3 Ultrasound Used for Placement: Yes Central Line Lumen Inserted: triple Post Procedure: sutured in place, good blood return and all ports aspirated, flushed, capped Patient Tolerated Procedure: well Complications: none Medical Decision Making Medical Decision Making [facility] Narrative: Patient had an extremely low blood pressure on arrival patient blood pressure was approximately 75/40. IV line established. 30 cc/kilos of IV fluids ordered. Zosyn ordered for empiric coverage of the abdomen. My interpretation of patient's chest x-ray was grossly negative. My interpretation of patient's urine was grossly negative. Patient's electrolytes came back elevated creatinine. Question etiology. A Gamino was placed. Only 30 cc of urine returned. No gross evidence of retention. Patient's white count returned elevated at about 20. With significant left shift. Question sepsis. Patient's hemoglobin is low. Baseline hemoglobin is about 12-13. Today it is 8. A central line was placed. 3 L of fluids are in. Blood pressure is still low. Patient was started on phenylephrine. Rectal exam was done. The rectal exam showed black stool. Patient's INR came back at greater than 26. Kcentra was given as per protocol for INR reversal. Patient's blood pressure being monitored very carefully. Patient's case discussed with intensive care unit. Case also discussed with him and with family. Risk and benefit of transfusion discussed. Agree with plan a transfusion. Patient is in critical condition. Will obtain a CT scan of the abdomen as soon as we can get a more stable blood pressure. Repeat focal exam for sepsis was done at approximately 06:00 after 3 L of fluid is already gone in patient's still appears weak. Sick appearing 06:25 discussed with the lab. Patient's hemoglobin on repeat came back at 5.5. Will transfuse patient with a unit of uncrossed blood. Risk and benefit of transfusion discussed with patient. Six hundred thirty patient's repeat lactate actually did improve to 1.7. Differential Diagnosis Differential Diagnoses: The differential diagnosis associated with the presentation includes Admission/Observation Consideration of admission/observation: Escalation of care including admission/observation considered Consult Healthcare Provider Management of the patient was discussed with: Box Repairer (Biomedical Repair Technician) Lab Data MDM Lab Attestation statement: I reviewed the patient's lab results. 11/23/23 06:10 11/23/23 03:28 Labs: Lab Results 11/23/23 11/23/23 11/23/23 Range/Units 03:28 03:33 05:05 WBC 20.1 H (4.8-10.8) X10*3/uL RBC 2.93 L D (4.60-5.80) X10*6/uL Hgb 8.4 L D (14.0-18.0) g/dl Hct 24.2 L D (42.0-52.0) % MCV 82.6 (80.0-98.0) fL MCH 28.7 (27.0-33.0) pg MCHC 34.7 (31.0-36.0) g/dl RDW 15.1 (11.0-16.0) % Plt Count 432 H D (160-400) X10*3/uL MPV 9.4 (9.4-12.4) fL Immature Gran % (Auto) Cancelled Neut % (Auto) Cancelled Lymph % (Auto) Cancelled Ritchie % (Auto) Cancelled Eos % (Auto) Cancelled Baso % (Auto) Cancelled Lymph # (Auto) Cancelled Ritchie # (Auto) Cancelled Eos # (Auto) Cancelled Baso # (Auto) Cancelled Abs Immat Gran (auto) Cancelled Absolute Neuts (auto) Cancelled Absolute Nucleated RBC 0.000 (0.0-0.012) X10*3/uL Nucleated RBC % (auto) 0.0 (0.0-0.2) /100WBC Neutrophils % (Manual) 74 H (45-73) % Band Neutrophils % 21 H (3-5) % Lymphocytes % (Manual) 1 L (20-40) % Monocytes % (Manual) 4 (2-11) % Abs Neuts (Manual) 19.1 H (2.0-8.3) X10*3/uL Lymphocytes # (Manual) 0.2 L (1.2-4.9) X10*3/uL Monocytes # (Manual) 0.8 (0.1-1.2) X10*3/uL Toxic Vacuolation PRESENT Platelet Estimate NORMAL (NORMAL) Large Platelets PRESENT Plt Morphology Comment NOTED RBC Morphology NOTED Polychromasia 1+ (0-2) /OIF [place] Cells 1+ (0-2) /OIF PT > 320.0 H D (11.1-13.3) SEC INR > 26.0 H* D (0.9-1.1) Sodium 134 L (135-145) mmol/L Potassium 3.6 (3.3-5.1) mmol/L Chloride 95 L (96-108) mmol/L Carbon Dioxide 16 L (22-29) mmol/L Anion Gap 27 H (12-20) BUN 122 H (9-16) mg/dL Creatinine 4.91 H* (0.5-1.4) mg/dL Estim Creat Clear Calc 19.6 Estimated GFR 12 Random Glucose 130 H (60-115) mg/dL Lactic Acid 4.0 H* (0.5-2.0) mmol/L Lactic Acid F/U @ 2Hr (0.5-2.0) mmol/L Calcium 8.1 L D (8.4-10.2) mg/dL Total Bilirubin 0.8 (0.0-1.0) mg/dL AST 77 H (5-37) U/L ALT 26 (0-40) U/L Alkaline Phosphatase 91 (39-117) U/L Troponin I High Sens 60.7 H D (<3.5-35.0) ng/L B-Natriuretic Peptide 427 H (<100) pg/mL Total Protein 6.4 L (6.5-8.0) g/dL Albumin 2.8 L (3.5-5.0) g/dL Urine Color Yellow Urine Appearance Clear Urine pH 5.5 (5.0-9.0) Ur Specific [place] 1.015 (1.005-1.025) Urine Protein 30 (1+) H (Neg-Trace) mg/dL Urine Glucose (UA) Negative (Negative) mg/dL Urine Ketones Negative (Negative) mg/dL Urine Blood Negative (Negative) Urine Nitrite Negative (Negative) Ur Leukocyte Esterase Negative (Negative) Urine RBC 0-2 (0-2) /HPF Urine WBC 0-5 (0-5) /HPF Ur Squamous Epith Cells 3-5 (0-2) /HPF Urine Bacteria None Seen (None Seen) Hyaline Casts 3-5 (0-2) /LPF Stool Occult Blood (NEGATIVE) Crossmatch 11/23/23 11/23/23 Range/Units 06:09 06:10 WBC 13.0 H (4.8-10.8) X10*3/uL RBC 1.96 L D (4.60-5.80) X10*6/uL Hgb 5.7 L* D (14.0-18.0) g/dl Hct 16.3 L* D (42.0-52.0) % MCV 83.2 (80.0-98.0) fL MCH 29.1 (27.0-33.0) pg MCHC 35.0 (31.0-36.0) g/dl RDW 14.9 (11.0-16.0) % Plt Count 278 D (160-400) X10*3/uL MPV 9.4 (9.4-12.4) fL Immature Gran % (Auto) Cancelled Neut % (Auto) Cancelled Lymph % (Auto) Cancelled Ritchie % (Auto) Cancelled Eos % (Auto) Cancelled Baso % (Auto) Cancelled Lymph # (Auto) Cancelled Ritchie # (Auto) Cancelled Eos # (Auto) Cancelled Baso # (Auto) Cancelled Abs Immat Gran (auto) Cancelled Absolute Neuts (auto) Cancelled Absolute Nucleated RBC 0.000 (0.0-0.012) X10*3/uL Nucleated RBC % (auto) 0.0 (0.0-0.2) /100WBC Neutrophils % (Manual) (45-73) % Band Neutrophils % (3-5) % Lymphocytes % (Manual) (20-40) % Monocytes % (Manual) (2-11) % Abs Neuts (Manual) (2.0-8.3) X10*3/uL Lymphocytes # (Manual) (1.2-4.9) X10*3/uL Monocytes # (Manual) (0.1-1.2) X10*3/uL Toxic Vacuolation Platelet Estimate (NORMAL) Large Platelets Plt Morphology Comment RBC Morphology Polychromasia /OIF [place]ier Cells /OIF PT (11.1-13.3) SEC INR (0.9-1.1) Sodium (135-145) mmol/L Potassium (3.3-5.1) mmol/L Chloride (96-108) mmol/L Carbon Dioxide (22-29) mmol/L Anion Gap (12-20) BUN (9-16) mg/dL Creatinine (0.5-1.4) mg/dL Estim Creat Clear Calc Estimated GFR Random Glucose (60-115) mg/dL Lactic Acid (0.5-2.0) mmol/L Lactic Acid F/U @ 2Hr 1.7 (0.5-2.0) mmol/L Calcium (8.4-10.2) mg/dL Total Bilirubin (0.0-1.0) mg/dL AST (5-37) U/L ALT (0-40) U/L Alkaline Phosphatase (39-117) U/L Troponin I High Sens (<3.5-35.0) ng/L B-Natriuretic Peptide (<100) pg/mL Total Protein (6.5-8.0) g/dL Albumin (3.5-5.0) g/dL Urine Color Urine Appearance Urine pH (5.0-9.0) Ur Specific [place] (1.005-1.025) Urine Protein (Neg-Trace) mg/dL Urine Glucose (UA) (Negative) mg/dL Urine Ketones (Negative) mg/dL Urine Blood (Negative) Urine Nitrite (Negative) Ur Leukocyte Esterase (Negative) Urine RBC (0-2) /HPF Urine WBC (0-5) /HPF Ur Squamous Epith Cells (0-2) /HPF Urine Bacteria (None Seen) Hyaline Casts (0-2) /LPF Stool Occult Blood POSITIVE (NEGATIVE) Crossmatch See Detail Independent Interpretation I performed an independent interpretation of an: EKG (My interpretation of patient's EKG showed an atrial fibrillation pattern heart rate is [address] segment elevation noted.) Radiology Impression Discussion of test interpretation with radiology: I have reviewed the radiologist's reading. Radiologist Impression: Of the chest x-ray. Independent Historian Patient's case discussed with patient's sister External Record Review External record reviewed: Inpatient record and Office record Chronic Conditions Patient?s care impacted by: Hypertension Atrial fibrillation chronic infection to the leg Social Determinants Patient?s care significantly limited by Social Determinants of Health including: Inadequate housing and Low income Critical Care Time Critical Care Time Critical Care Time: Yes Total Critical Care Time: 130 Attestation: I have personally provided 130 minutes of critical care time exclusive of time spent on separately billable procedures. ?Time includes review of lab data, radiology results, discussion with consultants, and monitoring for potential decompensation. ?Interventions were performed as documented above Discharge Plan Discharge Clinical Impression: Acute GI bleeding, Sepsis Patient Disposition: Admitted As Inpatient Print Language: Monegasque
[2023-11-23 06:18] LABS: OBS Int Ctl Valid YES; OBS1 POSITIVE (NEGATIVE)
[2023-11-23 06:19] LABS: Mean Corpuscular Hemoglobin 29.1 pg (27.0-33.0); Mean Corpuscular Volume 83.2 fL (80.0-98.0); Mean Platelet Volume 9.4 fL (9.4-12.4); Platelet Count 278 X10*3/uL (160-400); Red Blood Count 1.96 X10*6/uL (4.60-5.80); Red Cell Distribution Width 14.9 % (11.0-16.0); WBC ABN SCTR FOR CBC 1
[2023-11-23 06:25] LABS: Hematocrit 16.3 % (42.0-52.0); Hemoglobin 5.7 g/dl (14.0-18.0)
[2023-11-23 06:26] LABS: ~Lactic Acid-LAB USE ONLY 1.7 mmol/L (0.5-2.0)
[2023-11-23] MEDS: Norepinephrine Bitartrate/D5W 8 MG/250 ML PLAST..BAG 13.4 MG IV (06:27)
[2023-11-23 06:41] LABS: Band Neutrophils Percent 20 % (3-5); Lymphocytes Absolute Manual 0.3 X10*3/uL (1.2-4.9); Lymphocytes Percent Manual 2 % (20-40); Neutrophils Absolute Manual 12.7 X10*3/uL (2.0-8.3); Neutrophils Percent Manual 78 % (45-73)
[2023-11-23 06:43] LABS: Burr Cells 3+ (>5) /OIF; Platelet Estimate NORMAL (NORMAL); Platelet Morphology Comment NORMAL; Polychromasia 1+ (0-2) /OIF; RBC Morphology NOTED
[2023-11-23] MEDS: fentaNYL citrate/PF 100 MCG/2 ML VIAL 50 MCG IVPUSH (06:46)
--- NOTE | 2023-11-23 07:00 | CA_ITS ---
Transthoracic Echocardiogram Patient (Last, First, Middle): Andre Tabor, Gender: Male Date of : 1950 Age: 73 Procedure Date: 11/23/2023 Procedure Type: Transthoracic Echocardiogram Location: ICU Height: 180.34 cm Weight: 138.35 kg BSA: 2.52 m2 Heart Rate: 91 bpm BP: 110 / 73 mmHg Vice President Of Brand Management: Referring MD: Yonathan Jorge MD Director Validation: Edy Reveles MD Symptoms: shock Study Quality: Technically Difficult ECG Rhythm: Atrial Fibrillation Conclusions: - 1. Normal LV ejection fraction of 65-70% 2. At least mildly dilated left atrium 3. Severe aortic stenosis with mean gradient of 40 mm Hg and valve area of 0.9 centimeters sq 4. Nuxj-zw-nnqyjyml elevation right ventricular systolic pressure mildly elevated right atrial pressures 5. Upper limits normal ascending aortic size Findings Procedure Information Contrast agent, definity, is being given per protocol without apparent complications. The quality of the study was technically difficult. The study quality is limited by patients body habitus. Left Ventricle Normal left ventricular cavity size. There is mildly increased left ventricular wall thickness. The left ventricular systolic function is normal. The visually estimated ejection fraction is between 65-70%. Diastolic function is indeterminate on the basis of available data. Right Ventricle The right ventricle was not well visualized. Atria The left atrium is mildly dilated. Interatrial shunt cannot be excluded. The right atrium is likely dilated. Aortic Valve There is moderate calcification of the aortic valve. There is moderate thickening of the aortic valve. There is severe aortic valve stenosis. The mean gradient is 40 mmHg. The aortic valve area is 0.90 cm2. There is no aortic valve regurgitation. Mitral Valve There is mild anterior and posterior mitral leaflet thickening. There is mild mitral annular calcification. There is trace mitral valve regurgitation. There is no mitral valve stenosis. Pulmonic Valve The pulmonic valve was not well visualized. Tricuspid Valve There is mild tricuspid valve regurgitation. Mildly elevated right atrial pressure. Mild to moderate pulmonary hypertension is present. Great Vessels The aorta was not well visualized. The pulmonary artery was not well visualized. Venous The inferior vena cava is mildly dilated and collapses less than 50% with inspiration. Pericardium/Pleural The pericardium was not well visualized. Prior Study Comparison Changes noted compared to prior study dated: 05/28/2023. Aortic stenosis is severe Measurements 2D Linear Measurements IVSd: 1.28 0.6-0.9/0.6-1.0 cm LVIDd: 4.71 3.9-5.3/4.2-5.9 cm LVIDd Index: 1.87 2.4-3.2/2.2-3.1 cm/m2 LVIDs: 3.07 2.0-3.6 cm LVPWd: 1.34 0.7-1.1 cm LA Diam: 4.50 2.7-3.8/3.0-4.0 cm LAIDs Index: 1.79 1.5-2.3 cm/m2 LV Mass: 300.92 67-162/88-224 g LV Mass Index: 119.41 43-95/49-115 g/m2 LVOT Diam: 2.00 3.0+(-)1.3 cm Mitral Valve MV Pk E: 1.29 MV Decel Time: 175.00 E'Lateral: 14.50 E'Medial: 8.92 E/E' Med: 14.50 E/E' Lat: 8.90 PHT: 51.00 MVA PHT: 4.31 Decel Evangeline: 7.34 Aortic Valve AoV Pk Skip: 4.28 AoV Mn Skip: 2.94 AoV VTI: 0.74 AoV Pk Grad: 73.00 Aov Mn Grad: 40.00 JANIE Cont.VTI: 0.90 LVOT LVOT Pk Skip: 1.15 LVOT Mn Skip: 0.80 LVOT VTI: 0.21 LVOT Pk Grad: 5.00 LVOT Mn Grad: 3.00 LVOT Diam: 2.00 LVOT Area: 3.14 Diastolic Function MV Pk E: 1.29 E'Medial: 8.92 E/E' Med: 14.50 E' Laterial: 14.50 E/E' Lat: 8.90 Right Ventricle TAPSE (mm): 26.60 Tricuspid Valve TR Pk Skip: 3.05 TR Pk Grad: 37.00 RA Press: 8.00 RVSP: 45.00 Great Vessels Aorta Sinus of Valsalva: 3.10 2.0-3.5 cm Ao Asc: 3.60 2.1-3.4 cm Pulmonary Valve PV Pk Skip: 1.41 Peak PV Grad: 8.00 Updated in Other Vendor System with Status of Final Edy Reveles MD electronically signed on 11/23/2023 4:12:37 PM with status of Final
[2023-11-23] MEDS: vancomycin/NS 2,000 MG/500 ML PLAST..BAG 250 MG IV (07:03)
--- NOTE | 2023-11-23 07:14 | PC.NURSE ---
Pt BIBA for weakness, abd pain, difficulty standing/ambulating at home. Pt found to be in rapid afib, ekg done, blood cultures/lactic/labs done and sent to lab, BPs low 80s/30s, down to 70s/30s, peipheral iv #20g RAC, positional, iv fluids and zosyn administered through peripheral line, pt received approx 1.5 liters normal saline, pressures continued dropping to 60s/20s, 55/27 - MD Walsh aware - placed central line in R femoral artery - 16fr temp sensing ansh placed with little urine output (about 30ccs) santa colored urine non cloudy, sent to lab for sample. repeat lactic acid, cbc done, type and screen done. H&H resulted as critical - MD ordering RBCs and FFP, as pt PT INR critical pt currently receiving 1 unit rbcs, levofed running @0.09 via central line, vanco running through peripheral iv. pt alert, awake, oriented with good mentation throughout entire shift . occult stool positive. REPORT CALLED TO OCCUPATIONAL THERAPY DIRECTOR @07:[address] SCAN PRIOR TO TRANSPORT TO ICU. HANDOFF GIVEN TO DEBO Zeng ED RN
[2023-11-23] MEDS: Pantoprazole Sodium 40 MG/10 ML VIAL IVPUSH (07:30)
--- NOTE | 2023-11-23 08:22 | PHA.PROG ---
Admission Date/Time: November 23, 2023 06:34 Indication: Sepsis Weight in k.9 kg Adjusted body weight in Kg: [place] body weight in Kg: Obesity Dosing Indication % IBW: BMI 42.7 Serum Creatinine - Last 168 Hours 11/23/23 03:28 Creatinine 4.91 H* Estimated CrCl and GFR - Last 168 Hours 11/23/23 03:28 Estim Creat Clear Calc 19.6 Estimated GFR 12 Vancomycin Loading Dose: 2000 mg X1 Current Vancomycin Dosing Regimen: 500mg Q24H Vancomycin Monitoring using AUC goal of 400 - 600 range with trough as surrogate marker: 459 Date and Time for next Vancomycin Level to be drawn: 11/24/23 @0500 Pharmacist Comments on Vancomycin Plan: dosing off of random levels per elevated SCr level. Pending order for 11/23, to be checked in the morning after labs come back and adjusted based on renal function and vanco trough. Vancomycin dosing will take advantage of [employer] as a clinical decision support tool that uses Bayesian modeling to calculate individual patient's pharmacokinetic parameters and forecast the patient's drug concentration time course with the target goal AUC 24 range of 400 - 600 mg/L/hr.
[2023-11-23] MEDS: oxyCODONE HCl ER 10 MG TAB.ER.12H PO ×2 (08:46→20:04)
--- NOTE | 2023-11-23 09:22 | PC.NURSE ---
VO Dr Jorge increased FFP time of infusion to infuse over 30mins
--- NOTE | 2023-11-23 09:24 | PC.NURSE ---
VO Dr Jorge increase FFP time of infusion to infusion over 30 mins per unit
--- NOTE | 2023-11-23 09:53 | PHA.MEDREC ---
Pharmacy Consult ? Medication Reconciliation Pharmacy has completed the medication reconciliation. Spoke with patient, and sister. Patient has not recently taking furosemide due to increase urge to use the restroom and unable to ambulate to the restroom.
--- NOTE | 2023-11-23 10:09 | MHC.CM.PN ---
IMM DELIVERED. PT LIVES WITH MOTHER, SISTER LIVES A[address]OSS [address]. PT USES [employer] FOR MOBILITY/HAS A WALKER. PT ACTIVE WITH [facility] FOR NURSING VISITS AND ATTENDS [facility] TH[facility]SD[facility]. PT DRIVES. +HCP ON FILE. PCP PALU RITCHIE DP: HOME WITH RESUMPTION OF [facility] SERVICES AND WOUND CLINIC IS THE GOAL. PT SISTER WILL TRANSPORT HOME. CM WILL CONTINUE TO FOLLOW FOR ANY CHANGE TO DC PLAN/NEEDS.
[2023-11-23] MEDS: Albumin Human 25 % 100 ML 133.33 ML IV ×2 (10:39→11:30)
[2023-11-23 10:48] LABS: Hematocrit 21.4 % (42.0-52.0); Hemoglobin 7.5 g/dl (14.0-18.0); Mean Corpuscular Hemoglobin 28.6 pg (27.0-33.0); Mean Corpuscular Volume 81.7 fL (80.0-98.0); Mean Platelet Volume 9.3 fL (9.4-12.4); Platelet Count 405 X10*3/uL (160-400); Red Blood Count 2.62 X10*6/uL (4.60-5.80); Red Cell Distribution Width 14.9 % (11.0-16.0); White Blood Count 19.2 X10*3/uL (4.8-10.8)
[2023-11-23 11:22] LABS: Band Neutrophils Percent 16 % (3-5); Lymphocytes Absolute Manual 0.6 X10*3/uL (1.2-4.9); Lymphocytes Percent Manual 3 % (20-40); Metamyelocytes Absolute 0.2 X10*3/uL; Metamyelocytes Percent 1 %; Monocytes Absolute Manual 0.4 X10*3/uL (0.1-1.2); Monocytes Percent Manual 2 % (2-11); Neutrophils Percent Manual 78 % (45-73)
[2023-11-23 11:23] LABS: Toxic Vacuolation PRESENT
[2023-11-23 11:26] LABS: Burr Cells 3+ (>5) /OIF
[2023-11-23 11:27] LABS: Platelet Estimate NORMAL (NORMAL); Platelet Morphology Comment NORMAL; RBC Morphology NOTED
--- NOTE | 2023-11-23 12:24 | PC.NURSE ---
VO Dr Jorge infuse PRBC over 1hr
--- NOTE | 2023-11-23 14:13 | PM.CCHP ---
History of Present Illness Date of Service: 11/23/23 Attending physician on admission: Yonathan Jorge Chief Complaint: Dizziness 73 years old male with past medical history aortic stenosis, atrial fibrillation was apparently normal last night when he went to bed. He woke up around 2 in the morning to use the restroom but felt dizzy could not walk so called EMS. Dizziness was sudden in onset, progressive, associated with headaches and lower abdominal pain, denies any fever, denies any cough. Upon arrival to the ED he was found to be hypotensive needing vasopressor support, anemic with hemoglobin down to 8.4 from a baseline of 13, INR greater than 26 and an ARABELLA with creatinine of 4.9. He takes Coumadin for the management of atrial fibrillation. Review of Systems Constitutional: Constitutional: Reports no additional constitutional complaints, Reports headache(s) and Reports lethargy Eyes: Eyes: Reports no additional eye complaints ENT: Reports headache(s) Cardiovascular: Cardiovascular: Denies chest pain, Denies epigastric discomfort and Denies edema Respiratory: Respiratory: Reports no additional respiratory complaints, Denies change in phlegm color, Denies chest congestion and Denies cough Gastrointestinal: Gastrointestinal: Reports abdominal pain, Denies belching, Denies melena, Denies bloating and Denies hematochezia Genitourinary: Genitourinary: Denies change in libido, Denies hematuria and Reports oliguria Musculoskeletal: Musculoskeletal: Denies abnormal gait, Denies back pain and Denies myalgias Integumentary/Breasts: Skin/Breast: Denies bleeding lesions, Denies breast swelling and Denies breast skin changes Neurologic: Denies abnormal gait, Denies behavioral changes and Reports headache(s) Psychiatric: Psychiatric: Denies behavioral changes, Denies change in appetite and Denies change in libido Endocrine: Endocrine: Denies change in body appearance and Denies change in libido [facility] Past Medical History Medical History (Updated 11/23/23 @ 14:22 by Yonathan Jorge MD) Atrial fibrillation Abscess of knee, left Moderate aortic stenosis Persistent atrial fibrillation Atherosclerosis of [place] coronary artery of [place] heart with angina pectoris Dyslipidemia Sleep apnea Reactive depression Anxiety HTN (hypertension) Family History Family History Other Brain cancer Pertinent family history: Father of cancer Surgical History Surgical History History of incision and drainage Hx of carpal tunnel repair Status post ablation of incompetent vein using laser (~01/2022) History of revision of total replacement of left knee joint (~04/2016) History of total left knee replacement (~11/2015) History of evacuation of hematoma (~05/2015) History of total right knee replacement (TKR) (~04/2015) Social History Social History Household Members: Family Housing: House Do you presently have visiting nurse or other home services: Yes ([facility]) Alcohol intake: current Alcohol intake frequency: a few times a week Alcohol type: beer Comment: two canes Patient Tobacco Use Status: Former Tobacco user Quit Date: 7 years Years Smoked: 46+/- Smoked in Last 30 Days: No e-Cigarette/Vaping Use: Never Used Second Hand Smoke Exposure: No Use of substances other than those prescribed or required for medical reasons: No Substance Use Type: Marijuana Currently Displaying Signs/Symptoms of Drug Intoxication Withdrawal: No Have you been hit, kicked, punched, or otherwise hurt by someone within the past year? If so, by whom?: No Do you feel safe in your current relationship?: No Is there a partner from a previous relationship who is making you feel unsafe now?: No Are you made to feel afraid or neglected: No Spiritual Healthcare Practices: none per patient Episcopalian Healthcare Practices: none per patient Cultural Healthcare Practices: none per patient Advance Directives: Yes Advance Directives on File: Yes Advance Directives Date on File: 03/05/22 Do you have a plan to hurt others: No Plan Recently lost weight without trying: Yes How much weight loss: 14-23 pounds Eating poorly because of decreased appetite: Yes Nutrition screen score: 5 Nutrition Risks: No Nutritional Risk Poor oral hygiene: No service: No Current occupational status: previously employed and retired 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 Current occupational exposures/hazards: No Cognitive needs: No Hearing needs: No Vision needs: Yes Meds Allergies Allergy/AdvReac Type Severity Reaction Status Date / Time No Known Allergies Allergy Verified 11/23/23 03:43 [No Known Allergies*] Active Medications: Current Medications Norepinephrine Bitartrate (Levophed) 8 mg in 250 mls @ 0 mls/hr IV .Q0M [facility]; Protocol Last Titration: 11/23/23 13:24 Dose: 0.09 mcg/kg/min, 24.11 mls/hr Piperacillin Sod/Tazobactam (Sod 4.5 gm/ Sodium Chloride) 100 mls @ 200 mls/hr IV Q12H [facility] Vancomycin HCl 500 mg/ Sodium (Chloride) 110 mls @ 110 mls/hr IV ONCE ONE Stop: 11/24/23 07:59 Oxycodone HCl (Oxycodone Hcl Er 10 Mg Tab.Er.12h) 10 mg PO BID [facility] Last Admin: 11/23/23 08:46 Dose: 10 mg Oxycodone HCl (Oxycodone Hcl Immed Release 5 Mg Tablet) 5 mg PO Q6H PRN PRN Reason: Pain, Severe (Pain Scale 7-10) Pharmacy Consult (Consult Rx Vancomycin Dosing) 1 each MISCELLANE DAILY PRN PRN Reason: Consult order Home Medications ?Medication ?Instructions ?Recorded ?Confirmed ?Last Taken ?Type calcium carbonate (Tums) 1,000 mg PO BID PRN prior to 11/23/23 11/23/23 11/22/23 History ibuprofen ibuprofen 200 mg tablet 400 mg PO BID 11/23/23 11/23/23 11/22/23 History melatonin 10 mg disintegrating 10 mg PO BEDTIME 11/23/23 11/23/23 11/22/23 History tablet Physical Exam Vital Signs: Vital Signs: Last Vital Signs Temp 98.4 F 11/23/23 13:23 Pulse 91 11/23/23 14:00 Resp 17 11/23/23 14:00 BP 105/70 11/23/23 14:00 Pulse Ox 96 11/23/23 14:00 O2 Del Method Room Air 11/23/23 14:00 BMI result Body Mass Index 42.7 Const: General: acute distress, in distress, ill appearing and tired appearing Nutritional Appearance: well nourished and overweight Orientation/consciousness: oriented to person, oriented to place and oriented to time Eyes: General: appearance normal, both eyes and all related structures Visual Ontiveros: normal visual ontiveros by confrontation Alignment and Position: alignment normal and position normal Chest: Chest palpation & inspection: normal inspection of the chest, normal palpation of entire chest wall and abnormal inspection of the chest Resp: Effort & Inspection: normal respiratory effort, able to speak in complete sentences, abnormal respiratory pattern and audible wheezes Cardio: Jugular venous distension: no JVD Rate: regular rate Rhythm: abnormal rhythm Heart sounds: S1 normal heart sound present and S2 normal heart sound present GI: Inspection: Yes normal to inspection and Yes Abdominal wall edema Palpation (GI): nontender, no guarding, no hepatosplenomegaly and No Bladder palpation abnormal : General: Yes bladder normal to inspection, Yes bladder normal to palpation and No Bladder palpation abnormal Skin: General skin exam: no rashes or lesions noted and elasticity normal Neuro: General: oriented to person, oriented to place, oriented to time and moves all extremities Results Labs 11/23/23 10:39 11/23/23 03:28 Labs: Laboratory Results - last 24 hr 11/23/23 11/23/23 11/23/23 03:28 03:33 05:05 MCV 82.6 MCH 28.7 MCHC 34.7 RDW 15.1 Plt Count 432 H D MPV 9.4 Immature Gran % (Auto) Cancelled Neut % (Auto) Cancelled Lymph % (Auto) Cancelled [place] % (Auto) Cancelled Eos % (Auto) Cancelled Baso % (Auto) Cancelled Lymph # (Auto) Cancelled [place] # (Auto) Cancelled Eos # (Auto) Cancelled Baso # (Auto) Cancelled Abs Immat Gran (auto) Cancelled Absolute Neuts (auto) Cancelled Absolute Nucleated RBC 0.000 Nucleated RBC % (auto) 0.0 Neutrophils % (Manual) 74 H Band Neutrophils % 21 H Lymphocytes % (Manual) 1 L Monocytes % (Manual) 4 Metamyelocytes % Abs Neuts (Manual) 19.1 H Lymphocytes # (Manual) 0.2 L Monocytes # (Manual) 0.8 Metamyelocytes # Toxic Vacuolation PRESENT Platelet Estimate NORMAL Large Platelets PRESENT Plt Morphology Comment NOTED RBC Morphology NOTED Polychromasia 1+ (0-2) Ramin Cells 1+ (0-2) PT > 320.0 H D INR > 26.0 H* D Anion Gap 27 H Estim Creat Clear Calc 19.6 Estimated GFR 12 Random Glucose 130 H Lactic Acid 4.0 H* Lactic Acid F/U @ 2Hr Calcium 8.1 L D Total Bilirubin 0.8 AST 77 H ALT 26 Alkaline Phosphatase 91 Troponin I High Sens 60.7 H D B-Natriuretic Peptide 427 H Total Protein 6.4 L Albumin 2.8 L Urine Color Yellow Urine Appearance Clear Urine pH 5.5 Ur Specific [place] 1.015 Urine Protein 30 (1+) H Urine Glucose (UA) Negative Urine Ketones Negative Urine Blood Negative Urine Nitrite Negative Ur Leukocyte Esterase Negative Urine RBC 0-2 Urine WBC 0-5 Ur Squamous Epith Cells 3-5 Urine Bacteria None Seen Hyaline Casts 3-5 Stool Occult Blood Blood Type Antibody Screen Crossmatch 11/23/23 11/23/23 11/23/23 06:09 06:10 10:39 MCV 83.2 81.7 MCH 29.1 28.6 MCHC 35.0 35.0 RDW 14.9 14.9 Plt Count 278 D 405 H D MPV 9.4 9.3 L Immature Gran % (Auto) Cancelled Cancelled Neut % (Auto) Cancelled Cancelled Lymph % (Auto) Cancelled Cancelled [place] % (Auto) Cancelled Cancelled Eos % (Auto) Cancelled Cancelled Baso % (Auto) Cancelled Cancelled Lymph # (Auto) Cancelled Cancelled [place] # (Auto) Cancelled Cancelled Eos # (Auto) Cancelled Cancelled Baso # (Auto) Cancelled Cancelled Abs Immat Gran (auto) Cancelled Cancelled Absolute Neuts (auto) Cancelled Cancelled Absolute Nucleated RBC 0.000 0.000 Nucleated RBC % (auto) 0.0 0.0 Neutrophils % (Manual) 78 H 78 H Band Neutrophils % 20 H 16 H Lymphocytes % (Manual) 2 L 3 L Monocytes % (Manual) 2 Metamyelocytes % 1 Abs Neuts (Manual) 12.7 H 18.0 H Lymphocytes # (Manual) 0.3 L 0.6 L Monocytes # (Manual) 0.4 Metamyelocytes # 0.2 Toxic Vacuolation PRESENT Platelet Estimate NORMAL NORMAL Large Platelets Plt Morphology Comment NORMAL NORMAL RBC Morphology NOTED NOTED Polychromasia 1+ (0-2) Ken[place] Cells 3+ (>5) 3+ (>5) PT INR Anion Gap Estim Creat Clear Calc Estimated GFR Random Glucose Lactic Acid Lactic Acid F/U @ 2Hr 1.7 Calcium Total Bilirubin AST ALT Alkaline Phosphatase Troponin I High Sens B-Natriuretic Peptide Total Protein Albumin Urine Color Urine Appearance Urine pH Ur Specific [place] Urine Protein Urine Glucose (UA) Urine Ketones Urine Blood Urine Nitrite Ur Leukocyte Esterase Urine RBC Urine WBC Ur Squamous Epith Cells Urine Bacteria Hyaline Casts Stool Occult Blood POSITIVE Blood Type O Positive Antibody Screen NEGATIVE Crossmatch See Detail Imaging Radiologist's Impressions: Impressions Chest X-Ray 11/23/23 04:40 IMPRESSION: Suggestion of minimal bibasilar atelectasis without additional acute findings. Abdomen/Pelvis CT 11/23/23 07:59 IMPRESSION: Again enlargement of the pancreatic head with diffuse pancreatic parenchymal edema and extensive peripancreatic stranding. This most likely represents acute pancreatitis. Interval placement of right groin central venous catheter with hyperdensity and enlargement the right abductor musculature likely representing underlying hematoma. Bilateral nonobstructing renal calculi. No hydronephrosis. Gallbladder distention. Lymphadenopathy involving the LEFT common iliac, external iliac, iliac chain and inguinal regions. This lymphadenopathy is unchanged from 06/30/2023. Assessment and Plan (1) Acute GI bleeding: Status: Acute (2) Coagulopathy: Status: Acute (3) Acute kidney injury: Status: Acute (4) Hemorrhagic shock: Status: Acute (5) Atrial fibrillation: Status: Chronic Plan 73-year-old past medical history of moderate aortic stenosis, atrial fibrillation on Coumadin for anticoagulation presents to the with shock, drop in hemoglobin and along with INR > 26. Undifferentiated shock: Patient is in shock possibly due to septic shock versus hemorrhagic shock. Patient had good amount of resuscitation after that bedside echo showed IVC is 2.9 cm, RV normal in size, LV function normal. He is being treated aggressively with PRBC transfusions and FFP transfusions for correction of coagulopathy On Levophed for vasopressor support, titrate to keep the map above 65 mm Hg Acute blood loss anemia: His baseline hemoglobin is around 13, 8.4 upon admission, dropped to 5.7 this morning. Closely monitor H&H every 4 hours, transfuse to keep the hemoglobin above 7 grams/deciliter No clear source of bleeding, patient denies any bloody bowel movements although his stool for occult blood is positive CT abdomen concerning for hematoma in the right abductor muscles around the site of insertion of central line. No obvious hematoma externally Acute kidney injury: Has normal creatinine at baseline around 1.06 no increased to 4.9 Possibly secondary to ATN from acute drop in hemoglobin and shock Avoid nephrotoxic medications, closely monitor I's and O's Coagulopathy: Presented with INR greater than 26, patient on Coumadin Infectious disease: Patient is on broad-spectrum antibiotics vancomycin and Zosyn Not clear with source of infection, CT abdomen showing dilated head of pancreas, possibly pancreatitis Lines: Right groin TLC, Gamino catheter Prophylaxis: SCDs, pantoprazole Total time managing care of this patient today: 45 minutes.
[2023-11-23] MEDS: Norepinephrine Bitartrate/D5W 8 MG/250 ML PLAST..BAG 24.11 MG IV (14:34)
[2023-11-23] MEDS: oxyCODONE HCl Immed Release 5 MG TABLET PO (14:35)
[2023-11-23 14:55] LABS: INTERNATIONAL NORM RATIO 1.8 (0.9-1.1); Prothrombin Time 22.1 SEC (11.1-13.3)
--- NOTE | 2023-11-23 15:04 | HO.WOUND ---
Wound Consult: Attempted Assessment Arrival to bedside patient was having ECHO completed - will attempt assessment at future date or time.
[2023-11-23 15:13] LABS: Hemoglobin 7.3 g/dl (14.0-18.0); Mean Corpuscular HGB Conc 34.9 g/dl (31.0-36.0); Mean Corpuscular Hemoglobin 28.7 pg (27.0-33.0); Mean Corpuscular Volume 82.3 fL (80.0-98.0); Mean Platelet Volume 9.7 fL (9.4-12.4); NRBC Pct Auto 0.1 /100WBC (0.0-0.2); Platelet Count 351 X10*3/uL (160-400); Red Blood Count 2.54 X10*6/uL (4.60-5.80); Red Cell Distribution Width 14.7 % (11.0-16.0); White Blood Count 14.5 X10*3/uL (4.8-10.8)
[2023-11-23 15:21] LABS: Hematocrit 20.9 % (42.0-52.0)
[2023-11-23 15:37] LABS: Band Neutrophils Percent 23 % (3-5); Lymphocytes Absolute Manual 0.6 X10*3/uL (1.2-4.9); Lymphocytes Percent Manual 4 % (20-40); Metamyelocytes Absolute 0.1 X10*3/uL; Metamyelocytes Percent 1 %; Monocytes Absolute Manual 0.3 X10*3/uL (0.1-1.2); Monocytes Percent Manual 2 % (2-11); Neutrophils Absolute Manual 13.5 X10*3/uL (2.0-8.3); Neutrophils Percent Manual 70 % (45-73)
[2023-11-23 15:40] LABS: Burr Cells 2+ (3-5) /OIF; Polychromasia 1+ (0-2) /OIF; RBC Morphology NOTED
[2023-11-23 15:41] LABS: Dohle Bodies PRESENT; Platelet Estimate NORMAL (NORMAL); Platelet Morphology Comment NORMAL; Toxic Granulation PRESENT
--- NOTE | 2023-11-23 18:10 | HO.SKINPHOTO ---
Location: L Leg Location: R Leg
[2023-11-23 19:54] LABS: Anion Gap 22 (12-20); Blood Urea Nitrogen 117 mg/dL (9-16); Carbon Dioxide 18 mmol/L (22-29); Chloride 99 mmol/L (96-108); Creatinine Clr Calc Pharmacy 24.1; Estimated Glomerular Filt Rate 15; Glucose Random 162 mg/dL (60-115); Potassium 2.7 mmol/L (3.3-5.1); Sodium 136 mmol/L (135-145)
[2023-11-23] MEDS: Potassium Chloride/H20 40 MEQ/100 ML PIGGYBACK 100 MEQ IV (20:13)
[2023-11-23 20:20] LABS: Hemoglobin 7.1 g/dl (14.0-18.0)
[2023-11-23 20:25] LABS: Hematocrit 20.2 % (42.0-52.0)
[2023-11-23 20:26] LABS: INTERNATIONAL NORM RATIO 2.4 (0.9-1.1); Prothrombin Time 29.1 SEC (11.1-13.3)
[2023-11-23 21:29] LABS: Lipase 115 U/L (8-78)
[2023-11-23] MEDS: Calcium Gluconate/NaCl,Iso-Osm 1 GM/50 ML PLAST..BAG IV (21:48)
[2023-11-23] MEDS: 0.9 % Sodium Chloride Flush 3 ML SYRINGE IVFLUSH (23:20)
[2023-11-23] MEDS: Albumin Human 25 % 100 ML IV (23:57)
[2023-11-24] VITALS (35 sets, daily range): BP systolic 98–140; BP diastolic 55–83; PULSE 90–138; RESP 16–22; TEMP 36.3–37.7; O2SAT 91–99; BMI 43.7
[2023-11-24] MEDS: Norepinephrine Bitartrate/D5W 8 MG/250 ML PLAST..BAG 24.11 MG IV (00:03)
[2023-11-24 00:07] LABS: Hematocrit 21.8 % (42.0-52.0); Hemoglobin 7.7 g/dl (14.0-18.0)
[2023-11-24 00:31] LABS: Anion Gap 20 (12-20); Blood Urea Nitrogen 111 mg/dL (9-16); Calcium 7.1 mg/dL (8.4-10.2); Carbon Dioxide 19 mmol/L (22-29); Chloride 101 mmol/L (96-108); Creatinine Clr Calc Pharmacy 25.5; Estimated Glomerular Filt Rate 16; Glucose Random 162 mg/dL (60-115); Potassium 2.8 mmol/L (3.3-5.1); Sodium 137 mmol/L (135-145)
[2023-11-24] MEDS: Sodium Bicarbonate 8.4% 50 MEQ/50 ML SYRINGE IVPUSH (00:50)
[2023-11-24] MEDS: Potassium Chloride/H20 40 MEQ/100 ML PIGGYBACK 100 MEQ IV (00:50)
[2023-11-24] MEDS: Albumin Human 25 % 100 ML IV (00:51)
[2023-11-24 06:29] LABS: Vancomycin Random 13.9 mcg/mL (15-20)
[2023-11-24 06:33] LABS: Alanine Aminotransferase 23 U/L (0-40); Albumin Level 3.4 g/dL (3.5-5.0); Alkaline Phosphatase 72 U/L (39-117); Anion Gap 21 (12-20); Aspartate Amino Transferase 66 U/L (5-37); Bilirubin Total 1.5 mg/dL (0.0-1.0); Blood Urea Nitrogen 108 mg/dL (9-16); Calcium 7.2 mg/dL (8.4-10.2); Carbon Dioxide 19 mmol/L (22-29); Chloride 103 mmol/L (96-108); Creatinine Clr Calc Pharmacy 29.2; Estimated Glomerular Filt Rate 19; Glucose Random 156 mg/dL (60-115); Hematocrit 21.3 % (42.0-52.0); Hemoglobin 7.3 g/dl (14.0-18.0); Magnesium 1.9 mg/dL (1.6-2.6); Mean Corpuscular HGB Conc 34.3 g/dl (31.0-36.0); Mean Corpuscular Hemoglobin 27.9 pg (27.0-33.0); Mean Corpuscular Volume 81.3 fL (80.0-98.0); Mean Platelet Volume 9.5 fL (9.4-12.4); NRBC Pct Auto 0.2 /100WBC (0.0-0.2); Phosphorus 3.7 mg/dL (2.7-4.5); Platelet Count 314 X10*3/uL (160-400); Potassium 2.6 mmol/L (3.3-5.1); Red Blood Count 2.62 X10*6/uL (4.60-5.80); Red Cell Distribution Width 14.9 % (11.0-16.0); Sodium 140 mmol/L (135-145); Total Protein 6.3 g/dL (6.5-8.0); White Blood Count 10.7 X10*3/uL (4.8-10.8)
[2023-11-24] MEDS: vancomycin HCL 750 MG in 0.9 % Sodium Chloride 250 ML 265 MG IV (07:12)
[2023-11-24] MEDS: Potassium Chloride/H20 40 MEQ/100 ML PIGGYBACK 50 MEQ IV ×3 (07:12→23:22)
[2023-11-24] MEDS: 0.9 % Sodium Chloride Flush 3 ML SYRINGE IVFLUSH ×3 (07:19→20:04)
[2023-11-24 07:24] LABS: Band Neutrophils Percent 14 % (3-5); Eosinophils Absolute Manual 0.1 X10*3/uL (0.0-0.4); Eosinophils Percent Manual 1 % (0-4); Lymphocytes Absolute Manual 0.4 X10*3/uL (1.2-4.9); Lymphocytes Percent Manual 4 % (20-40); Monocytes Absolute Manual 0.1 X10*3/uL (0.1-1.2); Monocytes Percent Manual 1 % (2-11); Neutrophils Absolute Manual 10.1 X10*3/uL (2.0-8.3); Neutrophils Percent Manual 80 % (45-73)
[2023-11-24 07:26] LABS: Acanthocytes 1+ (0-2) /OIF; Burr Cells 1+ (0-2) /OIF; RBC Morphology NOTED
[2023-11-24 07:27] LABS: Hypochromasia 1+ (5-14) /OIF; Platelet Estimate NORMAL (NORMAL); Platelet Morphology Comment NORMAL
[2023-11-24] MEDS: oxyCODONE HCl ER 10 MG TAB.ER.12H PO ×2 (09:25→20:03)
--- NOTE | 2023-11-24 10:07 | MHC.CLN ---
DISCUSSED AT ROUNDS WITH MD PLAN TO ADVANCE DIET TOLERATED ADDED CLEAR LIQUIDS WITH ENSURE MONITOR TOLERANCE AND ADVANCE DIET ABLE
--- NOTE | 2023-11-24 10:12 | P.CDIM_ITS ---
PROVIDER RESPONSE TEXT: To clarify, the appropriate diagnosis supported by the clinical indicators: Severe or Morbid Obesity QUERY TEXT: PHYSICIAN'S DOCUMENTATION REQUEST Date of Query: 11/24/2023 08:20 AM EDT Patient Name: Andre Tabor Admit Date: 11/23/2023 Dear Yonathan Jorge MD, A review of the medical record indicates additional documentation may be needed. Please review below and update the documentation accordingly. Clinical Indicators: Height: 5ft 11in Weight: 142kg BMI: 43.7 Other Clinical Notes Supporting Significance of the BMI: Nursing notes Height and Weight: Class III e xtreme obesity with BMI of 43.7 If possible, please provide an associated diagnosis related to the abnormal BMI, such as: Obesity Due to excess calories Severe or Morbid Obesity Other (explain) Clinically unable to determine (explain) Thank you, Tiffany Fair, CCS, CDIS Use of terms such as suspected, likely, concern for, or probable (associated with a specific diagnosi s that is being evaluated, monitored, or treated as if it exists) are acceptable and can be coded in the inpatient se tting, when documented at the time of discharge. Please use your independent medical judgment in providing your response. THIS QUERY IS PART OF THE PERMANENT MEDICAL RECORD
--- NOTE | 2023-11-24 10:44 | PC.NURSE ---
Addendum entered by Edelmira Deng RN 11/24/23 13:34: Continued milan rvr HR up to 170's - Dr Jorge notified - VO Amio 150mg IV loading dose & Amio gtt - loading dose hung at 1329. Patient continues to to be asymptomatic. Addendum entered by Edelmira Deng RN 11/24/23 12:48: Amio 150mg IV completed at 1130. Dressing changes completed by wound RN. HR maintaining 120-140's - Dr Jorge notified. No new orders at this time. Patient has no complaints of chest pain, palpitations, dizziness. Levo titrated off - MAPs maintaining >65. Addendum entered by Edelmira Deng RN 11/24/23 11:21: HR maintaining 130-160's, afib. Pain down to 6/[address] Jorge notified. VO Amio 150mg IV loading dose now - administering starting at 1120. Original Note: Wound RN at bedside for dressing changes - Scheduled Oxycontin administered at 0925. During dressing changes, patient experiencing 10/10 severe pain to bilateral lower extremities. HR maintaining 140-170's, afib - dressing changes paused. Dr Jorge notified - VO Dilaudid 0.5mg IVP administered at 1045. Awaiting Do from pharmacy to continue dressing changes.
[2023-11-24] MEDS: HYDROmorphone HCl 0.5 MG/0.5 ML SYRINGE IVPUSH ×3 (10:45→19:29)
[2023-11-24] MEDS: Amiodarone/Dextrose 150 MG/100 ML PLAST..BAG 600 MG IV ×2 (11:20→13:29)
[2023-11-24] MEDS: Collagenase Clostridium Hist. 30 GM TUBE 1 APPL TOPICAL (12:00)
[2023-11-24] MEDS: Amiodarone HCL 900 MG in 0.9 % Sodium Chloride 500 ML 34.53 MG IVCONT (13:39)
--- NOTE | 2023-11-24 14:30 | PM.CCPN ---
Subjective Subjective Date of Service: 11/24/23 Interval History: Continues to be on Levophed for vasopressor support Multiple episodes of atrial fibrillation required amiodarone boluses many times, currently on amiodarone drip Hemoglobin dropped overnight requiring 1 PRBC No bowel movements, no vomiting Critical Care Time (minutes): 45 Physical Exam Vital Signs: Vital Signs: Last Vital Signs Temp 99.9 F 11/24/23 13:00 Pulse 114 H 11/24/23 14:00 Resp 18 11/24/23 14:00 BP 115/76 11/24/23 14:00 Pulse Ox 93 11/24/23 14:00 O2 Del Method Room Air 11/24/23 14:00 BMI result Body Mass Index 43.7 General: acute distress, ill appearing and tired appearing Nutritional Appearance: well nourished and overweight Orientation/consciousness: oriented to person, oriented to place and oriented to time Eyes: General: appearance normal, both eyes and all related structures Visual Gloria: normal visual gloria by confrontation Alignment and Position: alignment normal and position normal Chest: Chest palpation & inspection: normal inspection of the chest, normal palpation of entire chest wall and abnormal inspection of the chest Resp: Effort & Inspection: normal respiratory effort, bilateral air entry equal, occasional added sounds present in the lung bases Cardio: Jugular venous distension: no JVD Rate: regular rate Rhythm: abnormal rhythm Heart sounds: S1 normal heart sound present and S2 normal heart sound present GI: Inspection: Yes normal to inspection and Yes Abdominal wall edema Palpation (GI): nontender, no guarding, no hepatosplenomegaly and No Bladder palpation abnormal : General: Yes bladder normal to inspection, Yes bladder normal to palpation and No Bladder palpation abnormal Skin: General skin exam: no rashes or lesions noted and elasticity normal Neuro: General: oriented to person, oriented to place, oriented to time and moves all extremities, no focal defects Objective Data Labs 11/24/23 05:26 11/24/23 05:26 Labs: Laboratory Results - last 24 hr 11/23/23 11/23/23 11/23/23 06:10 14:32 19:30 WBC 14.5 H RBC 2.54 L Hgb 7.3 L Hct 20.9 L* MCV 82.3 MCH 28.7 MCHC 34.9 RDW 14.7 Plt Count 351 MPV 9.7 Immature Gran % (Auto) Cancelled Neut % (Auto) Cancelled Lymph % (Auto) Cancelled [place] % (Auto) Cancelled Eos % (Auto) Cancelled Baso % (Auto) Cancelled Lymph # (Auto) Cancelled [place] # (Auto) Cancelled Eos # (Auto) Cancelled Baso # (Auto) Cancelled Abs Immat Gran (auto) Cancelled Absolute Neuts (auto) Cancelled Absolute Nucleated RBC 0.020 H Nucleated RBC % (auto) 0.1 Neutrophils % (Manual) 70 Band Neutrophils % 23 H Lymphocytes % (Manual) 4 L Monocytes % (Manual) 2 Eosinophils % (Manual) Metamyelocytes % 1 Abs Neuts (Manual) 13.5 H Lymphocytes # (Manual) 0.6 L Monocytes # (Manual) 0.3 Eosinophils # (Manual) Metamyelocytes # 0.1 Toxic Granulation PRESENT Dohle Bodies PRESENT Platelet Estimate NORMAL Plt Morphology Comment NORMAL RBC Morphology NOTED Polychromasia 1+ (0-2) Hypochromasia Ramin Cells 2+ (3-5) Acanthocytes (Spur) PT 22.1 H D INR 1.8 H D Sodium 136 Potassium 2.7 L* D Chloride 99 Carbon Dioxide 18 L Anion Gap 22 H BUN 117 H Creatinine 3.94 H Estim Creat Clear Calc 24.1 Estimated GFR 15 Random Glucose 162 H Calcium 7.0 L D Phosphorus Magnesium Total Bilirubin AST ALT Alkaline Phosphatase Total Protein Albumin Lipase 115 H Random Vancomycin Blood Type O Positive Antibody Screen NEGATIVE Crossmatch See Detail 11/23/23 11/23/23 11/24/23 19:51 23:54 05:26 WBC 10.7 RBC 2.62 L Hgb 7.1 L 7.7 L 7.3 L Hct 20.2 L* 21.8 L 21.3 L MCV 81.3 MCH 27.9 MCHC 34.3 RDW 14.9 Plt Count 314 MPV 9.5 Immature Gran % (Auto) Cancelled Neut % (Auto) Cancelled Lymph % (Auto) Cancelled [place] % (Auto) Cancelled Eos % (Auto) Cancelled Baso % (Auto) Cancelled Lymph # (Auto) Cancelled [place] # (Auto) Cancelled Eos # (Auto) Cancelled Baso # (Auto) Cancelled Abs Immat Gran (auto) Cancelled Absolute Neuts (auto) Cancelled Absolute Nucleated RBC 0.020 H Nucleated RBC % (auto) 0.2 Neutrophils % (Manual) 80 H Band Neutrophils % 14 H Lymphocytes % (Manual) 4 L Monocytes % (Manual) 1 L Eosinophils % (Manual) 1 Metamyelocytes % Abs Neuts (Manual) 10.1 H Lymphocytes # (Manual) 0.4 L Monocytes # (Manual) 0.1 Eosinophils # (Manual) 0.1 Metamyelocytes # Toxic Granulation Dohle Bodies Platelet Estimate NORMAL Plt Morphology Comment NORMAL RBC Morphology NOTED Polychromasia Hypochromasia 1+ (5-14) Ramin Cells 1+ (0-2) Acanthocytes (Spur) 1+ (0-2) PT 29.1 H D INR 2.4 H Sodium 137 140 Potassium 2.8 L* 2.6 L* Chloride 101 103 Carbon Dioxide 19 L 19 L Anion Gap 20 21 H BUN 111 H 108 H Creatinine 3.73 H 3.29 H Estim Creat Clear Calc 25.5 29.2 Estimated GFR 16 19 Random Glucose 162 H 156 H Calcium 7.1 L 7.2 L Phosphorus 3.7 Magnesium 1.9 Total Bilirubin 1.5 H AST 66 H ALT 23 Alkaline Phosphatase 72 Total Protein 6.3 L Albumin 3.4 L Lipase Random Vancomycin 13.9 L Blood Type Antibody Screen Crossmatch Microbiology Microbiology Results: Microbiology 11/23/23 09:40 Blood - Venous Blood Culture - Preliminary No growth after 24 hours. 11/23/23 03:33 Blood - Venous Blood Culture - Preliminary Streptococcus pyogenes (Grp A) Progress Note: A&P Assessment and plan (1) Atrial fibrillation: Status: Chronic (2) Acute kidney injury: Status: Acute (3) Coagulopathy: Status: Acute (4) Acute GI bleeding: Status: Acute (5) Bilateral kidney stones: Status: Acute (6) Shock: Status: Acute Plan 73-year-old past medical history of moderate aortic stenosis, atrial fibrillation on Coumadin for anticoagulation presents to the with shock, drop in hemoglobin and along with INR > 26. Undifferentiated shock: Patient is in shock possibly due to septic shock versus hemorrhagic shock. Patient had good amount of resuscitation after that bedside echo showed IVC is 2.9 cm, RV normal in size, LV function normal. He is being treated aggressively with PRBC transfusions and FFP transfusions for correction of coagulopathy significant volume received so far. On Levophed for vasopressor support, titrate to keep the map above 65 mm Hg Atrial fibrillation with RVR: Had multiple episodes of atrial fibrillation with RVR with heart rate going up to 150 since this morning He received 2 amiodarone bolus of 150 mg, we will start him on a continuous amiodarone drip Warfarin for anticoagulation with her 2 to coagulopathy Acute blood loss anemia: His baseline hemoglobin is around 13, dropped to 5.7 the lowest, received 1 unit of PRBC overnight and his hemoglobin came up to 7.3. So far he has received 4 units of PRBC and 6 units of FFP Closely monitor H&H every 4 hours, transfuse to keep the hemoglobin above 7 grams/deciliter No clear source of bleeding, patient denies any bloody bowel movements although his stool for occult blood is positive. We will send reticulocyte count, LDH, Eda test and haptoglobin to rule out hemolytic anemia CT abdomen concerning for hematoma in the right abductor muscles around the site of insertion of central line. No obvious hematoma externally, no hematoma noted on ultrasound thigh Acute kidney injury: baseline around 1.06 no increased to 4.9 upon admission, down to 3.29 today Possibly secondary to ATN from acute drop in hemoglobin and shock improving with resuscitation Avoid nephrotoxic medications, closely monitor I's and O's Coagulopathy: Presented with INR greater than 26, patient on Coumadin Received 6 units of FFP, INR this morning is 2.4 Infectious disease: Patient is on broad-spectrum antibiotics vancomycin and Zosyn Not clear with source of infection, CT abdomen showing dilated head of pancreas, possibly pancreatitis Lines: Right groin TLC, Gamino catheter Prophylaxis: SCDs, pantoprazole Quality Stroke Does the patient have a stroke diagnosis?: No VTE Prior VTE?: No VTE Risk Level:: Medical - moderate - high VTE Device Contraindication: Treatment Not Tolerated VTE Drug Contraindication: N/A - Med Ordered
--- NOTE | 2023-11-24 15:08 | HO.WOUND ---
Wound Consult: Initial 73yr old?male admitted to [facility] on 11/23/23 - See progress notes and H&P for detailed history.? Wound consult placed for bilateral Lower Legs.? Patient agreeable to assessment and photo documentation.? Chart review reveals patient follows with wound clinic for treatment and has VNA services in place. Unfortunately the patient experienced significant pain during dressing removal - he reports this happenes at home as well. He was premedicated by the direct care team see MAR for details. The patient also required additional pain medication throughout assessment. The patient needed several break from intolerable pain. The wound beds remain with adherent slough - given a Diagnosis of Pydoderma Ganggrenosum and concern for pathergy topical recommenation made for Santyl for enzymatic debridement of wound bed. The patient states the wounds have not been treated with Santyl in the past - he reports initially he was ordered Santyl but had difficulty obtaining the ointment and in the end outpatient wound clinic started another treatment. The patient reports he wears Lymphedema pumps at home as ordered and chart review reveals outpt WCC has seen an overall improvement since his continued use of Lymphedema pumps. Recommend at time of d/c to continue with outpt WCC and lymphedema pumps. Bilateral Lower Legs Etiology: ?Pydoderma Ganggrenosum and Venous Dermatitis Wound Bed: lesions with adherent yellow slough with intact skin bridges in place. not the lesions are on the posterior side of the left legs as well Drainage / Odor: foul smelling dressings in place - will monitor for improvement - Alginate stuck to wound beds at the time of my arrival to bedside Edges: ?irregular Malini wound: left leg with red pink erythema and swelling, periwound with hyperpigmentation noted - No Induration, Fluctuance noted Pain: reports extreme pain Goals of Treatment: ? Santyl for enzymatic debridement Recommendations: 1. Turn and Reposition every 2 hours and as needed for patient comfort.? Use pillows or wedges to support off loading positions. 2. Off Load all bony prominences with use of pillows and heel boots if needed.? Apply Preventative foams where needed. ? 3. Monitor for incontinence and moisture control, use barrier creams when needed for prevention and treatment. 4. Provide adequate and supplemental nutrition.? 5. Order or Continue low air loss mattress. 6. Bilateral Lower Legs - Elevate Lower Legs - Cleanse with normal saline, pat dry. ?Apply barrier to the immediate malini wound, apply thick layer of Santyl to entire wound bed, cover with xeroform, secure dry gauze, ABD pads and gauze wrap, change Daily. Re-consult wound care Nurse for wound deterioration or wound changes.
[2023-11-24] MEDS: Piperacillin Sodium/Tazobactam 4.5 GM in 0.9 % Sodium Chloride 100 ML IV (15:28)
[2023-11-24 15:32] LABS: Immature Retic Fraction 33.9 % (2.3-13.4); Retic HGB Equivalent 28.1 pg (30.0-35.0); Reticulocyte Percent 2.4 % (0.5-1.8); Reticulocytes Absolute 0.066 X10*6/uL (0.026-0.095)
[2023-11-24 15:46] LABS: Lactate Dehydrogenase 431 U/L (118-273)
[2023-11-24 20:20] LABS: MANUAL DIFF FLAG NO
[2023-11-24] MEDS: Metoprolol Tartrate 5 MG/5 ML VIAL IVPUSH (20:31)
[2023-11-24 20:32] LABS: Basophils Percent Auto 0.4 % (0-2); Eosinophils Percent Auto 0.4 % (0-4); Hematocrit 23.1 % (42.0-52.0); Imm Gran Abs Auto 0.16 X10*3/uL (0.00-0.03); Imm Gran Pct Auto 1.4 % (0.0-0.4); Lymphocytes Absolute Auto 0.4 X10*3/uL (1.2-4.9); Lymphocytes Percent Auto 3.5 % (20-40); Mean Corpuscular HGB Conc 34.6 g/dl (31.0-36.0); Mean Corpuscular Hemoglobin 28.8 pg (27.0-33.0); Mean Corpuscular Volume 83.1 fL (80.0-98.0); Mean Platelet Volume 9.2 fL (9.4-12.4); Monocytes Absolute Auto 0.5 X10*3/uL (0.1-1.2); Monocytes Percent Auto 4.6 % (2-11); NRBC Pct Auto 0.3 /100WBC (0.0-0.2); Neutrophils Percent Auto 89.7 % (45-73); Platelet Count 284 X10*3/uL (160-400); Red Blood Count 2.78 X10*6/uL (4.60-5.80); Red Cell Distribution Width 15.7 % (11.0-16.0); White Blood Count 11.2 X10*3/uL (4.8-10.8)
[2023-11-24 20:50] LABS: Anion Gap 19 (12-20); Blood Urea Nitrogen 90 mg/dL (9-16); C Reactive Protein 31.15 mg/dL (< or = 0.50); Calcium 7.1 mg/dL (8.4-10.2); Carbon Dioxide 20 mmol/L (22-29); Chloride 108 mmol/L (96-108); Creatinine Clr Calc Pharmacy 35.8; Estimated Glomerular Filt Rate 23; Glucose Random 144 mg/dL (60-115); Magnesium 1.9 mg/dL (1.6-2.6); Phosphorus 2.6 mg/dL (2.7-4.5); Potassium 2.8 mmol/L (3.3-5.1); Sodium 144 mmol/L (135-145)
[2023-11-24] MEDS: Acetaminophen 325 MG TABLET 975 MG PO (21:20)
[2023-11-24] MEDS: Metoprolol Tartrate 12.5 MG HALFTAB PO (22:43)
[2023-11-25] VITALS (32 sets, daily range): BP systolic 98–137; BP diastolic 60–92; PULSE 97–149; RESP 13–28; TEMP 36.2–36.9; O2SAT 90–97; BMI 43.3
--- NOTE | 2023-11-25 01:38 | PC.NURSE ---
Addendum entered by Marisol Haddad RN 11/25/23 03:21: Pt c/o nausea without vomiting. PA notified and zofran ordered and given with +effect. Pt had moderate hard BM with straining and tachycardia, resolved with rest. PA notified and senna ordered, first dose given. Original Note: Assumed care of pt at 19:00. Pt seen in ICU. A&Ox4. Continues in afib on tele, on amiodarone gtt, titrated down to 0.5 mg/min per order. Rate controlled at rest, tachycardic sustained 110-130?s with activity and during wound care. Pt asymptomatic. Covering PA Wang Kruse notified, 1x 5mg IV metoprolol ordered and given with some effect; 12.5mg po metoprolol given. BLE with chronic venous stasis ulcers.? BLE with hyperpigmentation though LLE is notably reddened, more edematous, and warmer to touch compared to RLE. Warmth and redness to left leg outlined. Renny and kerlix wraps taken down per PA request and BLE wounds cultures ordered and obtained, respectively. U/S of LLE ordered and obtained, report negative for DVT. Pt pre-medicated for [id number] leg pain with +effect, pt reports tolerable pain level at this time. PA verbal order okay to re-dress wounds. Wounds cleansed, barrier cream reapplied to periwound, xeroform reapplied, kerlix and renny wrapped. Dressings remain c/d/i. Bilateral heel boots replaced for offloading. CBC and CMP ordered. K+ back critical at 2.8; PA notified and repleted as ordered. Reassessment ordered with morning labs. Denies chest pain and sob. Lungs clear/dim on ra. Breathing is even and unlabored without distress. Pt tolerating clears without n/v. Voiding cyu via urinal with assistance. Q2h turning and repositioning with bedrest orders ongoing. Bed alarm in place. Call marie within reach, pt rings appropriately to make needs known. Please see shift assessments, tasks, and MAR for full details. Plan of care continues.
[2023-11-25] MEDS: Piperacillin Sodium/Tazobactam 4.5 GM in 0.9 % Sodium Chloride 100 ML IV ×2 (02:37→15:31)
[2023-11-25] MEDS: ondansetron HCL 4 MG/2 ML VIAL IVPUSH (02:52)
[2023-11-25] MEDS: Pantoprazole Sodium 40 MG/10 ML VIAL IVPUSH (06:10)
[2023-11-25 06:38] LABS: Hematocrit 24.1 % (42.0-52.0); Hemoglobin 8.3 g/dl (14.0-18.0); Mean Corpuscular HGB Conc 34.4 g/dl (31.0-36.0); Mean Corpuscular Hemoglobin 28.5 pg (27.0-33.0); Mean Corpuscular Volume 82.8 fL (80.0-98.0); Mean Platelet Volume 9.1 fL (9.4-12.4); Platelet Count 289 X10*3/uL (160-400); Red Blood Count 2.91 X10*6/uL (4.60-5.80); Red Cell Distribution Width 15.7 % (11.0-16.0); White Blood Count 13.6 X10*3/uL (4.8-10.8)
[2023-11-25 06:59] LABS: Alanine Aminotransferase 21 U/L (0-40); Albumin Level 3.2 g/dL (3.5-5.0); Alkaline Phosphatase 90 U/L (39-117); Anion Gap 18 (12-20); Aspartate Amino Transferase 46 U/L (5-37); Bilirubin Total 1.3 mg/dL (0.0-1.0); Blood Urea Nitrogen 78 mg/dL (9-16); Calcium 7.2 mg/dL (8.4-10.2); Carbon Dioxide 19 mmol/L (22-29); Chloride 112 mmol/L (96-108); Creatinine Clr Calc Pharmacy 43.5; Estimated Glomerular Filt Rate 30; Glucose Random 148 mg/dL (60-115); Lipase 33 U/L (8-78); Phosphorus 2.1 mg/dL (2.7-4.5); Sodium 146 mmol/L (135-145); Total Protein 6.4 g/dL (6.5-8.0)
[2023-11-25 07:01] LABS: Vancomycin Random 11.8 mcg/mL (15-20)
--- NOTE | 2023-11-25 07:19 | HE.PHANOTE ---
RE: VANCO DOSING Random came back as 11.8. Renal function is improving and 11.8 is suptherapeutic so will increase dose to 1000 mg once @0800 on 11/25/23. Next random is scheduled for 11/26/23 @0600.
[2023-11-25 07:40] LABS: Band Neutrophils Percent 10 % (3-5); Lymphocytes Absolute Manual 0.1 X10*3/uL (1.2-4.9); Lymphocytes Percent Manual 1 % (20-40); Monocytes Absolute Manual 0.3 X10*3/uL (0.1-1.2); Monocytes Percent Manual 2 % (2-11); Neutrophils Absolute Manual 13.2 X10*3/uL (2.0-8.3); Neutrophils Percent Manual 87 % (45-73); Nucleated Red Blood Cells 1 /100WBC (0-0)
[2023-11-25 07:41] LABS: Acanthocytes 1+ (0-2) /OIF; Burr Cells 2+ (3-5) /OIF; Platelet Estimate NORMAL (NORMAL); Platelet Morphology Comment NORMAL; Polychromasia 1+ (0-2) /OIF; RBC Morphology NOTED
[2023-11-25] MEDS: oxyCODONE HCl ER 10 MG TAB.ER.12H PO ×2 (07:56→21:42)
[2023-11-25] MEDS: vancomycin HCL 1,000 MG in 0.9 % Sodium Chloride 250 ML 270 MG IV (08:02)
[2023-11-25] MEDS: 0.9 % Sodium Chloride Flush 3 ML SYRINGE IVFLUSH ×3 (08:02→19:41)
[2023-11-25] MEDS: HYDROmorphone HCl 0.5 MG/0.5 ML SYRINGE IVPUSH (09:04)
--- NOTE | 2023-11-25 09:27 | PM.CNGS ---
History of Present Illness Consult details Consult date: 11/25/23 Narrative: 73-year-old male with multiple medical problems including morbid obesity, activity intolerance, chronic lymphedema, admitted because anemia. His hemoglobin was 8.4 in the ER when he was brought in for a ?dizzy spell? His INR was elevated at 26. He is on Coumadin for atrial fibrillation He also was on atrial fibrillation with rapid ventricular response on admission I have been consulted because of the bilateral leg ulcers which have been chronic. He says he is being followed by the Wound Clinic. Review of Systems Constitutional: Constitutional: Denies fever(s), Reports malaise and Reports weakness Cardiovascular: Cardiovascular: Denies chest pain and Reports dyspnea on exertion Respiratory: Respiratory: Reports dyspnea on exertion Gastrointestinal: Gastrointestinal: Denies abdominal pain Genitourinary: Genitourinary: Denies difficulty urinating Musculoskeletal: Musculoskeletal: Reports myalgias Neurologic: Reports weakness PMFSH Past Medical History Medical History (Updated 11/25/23 @ 11:24 by Yonathan Jorge MD) Chronic ulcer of leg Atrial fibrillation Abscess of knee, left Moderate aortic stenosis Persistent atrial fibrillation Atherosclerosis of [place] coronary artery of [place] heart with angina pectoris Dyslipidemia Sleep apnea Reactive depression Anxiety HTN (hypertension) Family History Family History Other Brain cancer Surgical History Surgical History History of incision and drainage Hx of carpal tunnel repair Status post ablation of incompetent vein using laser (~01/2022) History of revision of total replacement of left knee joint (~04/2016) History of total left knee replacement (~11/2015) History of evacuation of hematoma (~05/2015) History of total right knee replacement (TKR) (~04/2015) Social History Social History Household Members: Family Housing: House Do you presently have visiting nurse or other home services: Yes (VNA) Alcohol intake: current Alcohol intake frequency: a few times a week Alcohol type: beer Comment: two canes Patient Tobacco Use Status: Former Tobacco user Quit Date: 7 years Years Smoked: 46+/- Smoked in Last 30 Days: No e-Cigarette/Vaping Use: Never Used Second Hand Smoke Exposure: No Use of substances other than those prescribed or required for medical reasons: No Substance Use Type: Marijuana Currently Displaying Signs/Symptoms of Drug Intoxication Withdrawal: No Have you been hit, kicked, punched, or otherwise hurt by someone within the past year? If so, by whom?: No Do you feel safe in your current relationship?: No Is there a partner from a previous relationship who is making you feel unsafe now?: No Are you made to feel afraid or neglected: No Spiritual Healthcare Practices: none per patient Nondenominational Healthcare Practices: none per patient Cultural Healthcare Practices: none per patient Advance Directives: Yes Advance Directives on File: Yes Advance Directives Date on File: 03/05/22 Do you have a plan to hurt others: No Plan Recently lost weight without trying: Yes How much weight loss: 14-23 pounds Eating poorly because of decreased appetite: Yes Nutrition screen score: 5 Nutrition Risks: No Nutritional Risk Poor oral hygiene: No service: No Current occupational status: previously employed and retired 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 Current occupational exposures/hazards: No Cognitive needs: No Hearing needs: No Vision needs: Yes Meds Allergies Allergy/AdvReac Type Severity Reaction Status Date / Time No Known Allergies Allergy Verified 11/23/23 03:43 [No Known Allergies*] Active Medications: Current Medications Hydromorphone HCl (Hydromorphone Hcl 0.5 Mg/0.5 Ml Syringe) 0.5 mg IVPUSH Q4H PRN; Protocol PRN Reason: Pain, Severe (Pain Scale 7-10) Last Admin: 11/25/23 09:04 Dose: 0.5 mg Norepinephrine Bitartrate (Levophed) 8 mg in 250 mls @ 0 mls/hr IV .Q0M MONA; Protocol Last Titration: 11/24/23 18:18 Dose: Infused Piperacillin Sod/Tazobactam (Sod 4.5 gm/ Sodium Chloride) 100 mls @ 200 mls/hr IV Q12H MONA Last Infusion: 11/25/23 03:07 Dose: Infused Amiodarone HCl 900 mg/ Sodium (Chloride) 518 mls @ 34.533 mls/hr IVCONT .Q15H1M [facility]; Protocol Last Admin: 11/25/23 05:31 Dose: Not Given Metoprolol Tartrate (Metoprolol Tartrate 12.5 Mg Halftab) 12.5 mg PO Q12H [facility]; Protocol Last Admin: 11/24/23 22:43 Dose: 12.5 mg Ondansetron HCl (Ondansetron Hcl 4 Mg/2 Ml Vial) 4 mg IVPUSH Q6H PRN PRN Reason: Nausea and Vomiting Last Admin: 11/25/23 02:52 Dose: 4 mg Oxycodone HCl (Oxycodone Hcl Er 10 Mg Tab.Er.12h) 10 mg PO BID [facility] Last Admin: 11/25/23 07:56 Dose: 10 mg Oxycodone HCl (Oxycodone Hcl Immed Release 5 Mg Tablet) 5 mg PO Q6H PRN PRN Reason: Pain, Severe (Pain Scale 7-10) Last Admin: 11/23/23 14:35 Dose: 5 mg Pantoprazole Sodium (Pantoprazole Sodium 40 Mg/10 Ml Vial) 40 mg IVPUSH DAILY@0630 [facility] Last Admin: 11/25/23 06:10 Dose: 40 mg Pharmacy Consult (Consult Rx Vancomycin Dosing) 1 each MISCELLANE DAILY PRN PRN Reason: Consult order Senna (Senna [place] Extract Oral Syrup 15 Ml Syrup) 15 ml PO BEDTIME [facility] Last Admin: 11/25/23 03:06 Dose: 15 ml Sodium Chloride (0.9 % Sodium Chloride Flush 3 Ml Syringe) 3 ml IVFLUSH QSHIFT [facility] Last Admin: 11/25/23 08:02 Dose: 3 ml Home Medications ?Medication ?Instructions ?Recorded ?Confirmed ?Last Taken ?Type calcium carbonate (Tums) 1,000 mg PO BID PRN prior to 11/23/23 11/23/23 11/22/23 History ibuprofen ibuprofen 200 mg tablet 400 mg PO BID 11/23/23 11/23/23 11/22/23 History melatonin 10 mg disintegrating 10 mg PO BEDTIME 11/23/23 11/23/23 11/22/23 History tablet Physical Exam Vital Signs: Vital Signs: Last Vital Signs Temp 97.9 F 11/25/23 08:00 Pulse 129 H 11/25/23 09:00 Resp 23 H 11/25/23 09:00 BP 136/83 11/25/23 09:00 Pulse Ox 95 11/25/23 09:00 O2 Del Method Room Air 11/25/23 09:00 BMI result Body Mass Index 43.3 Const: Other: Morbidly obese, mildly short of breath Resp: Other: Mildly short of breath Cardio: Other: Irregular rhythm Rhythm: abnormal rhythm GI: Palpation (GI): Soft to palpation Extrem: Other: On the anterior right leg is note of a wide ulcer probably about 9 cm x 6 cm in dimension, involving full-thickness of the skin with patchy areas fibrinous debris On the left leg is note of a diffuse ulcer involving the lower leg, on both the l anterior, lateral and posterior surfaces, superficial, no eschar, clean; more edematous than the left Results Labs 11/27/23 05:08 11/27/23 05:08 Labs: Abnormal lab results 11/23/23 11/24/23 11/24/23 Range/Units 06:10 15:23 20:03 WBC 11.2 H (4.8-10.8) X10*3/uL RBC 2.78 L (4.60-5.80) X10*6/uL Hgb 8.0 L (14.0-18.0) g/dl Hct 23.1 L (42.0-52.0) % MPV 9.2 L (9.4-12.4) fL Immature Gran % (Auto) 1.4 H (0.0-0.4) % Neut % (Auto) 89.7 H (45-73) % Lymph % (Auto) 3.5 L (20-40) % Lymph # (Auto) 0.4 L (1.2-4.9) X10*3/uL Abs Immat Gran (auto) 0.16 H (0.00-0.03) X10*3/uL Absolute Neuts (auto) 10.0 H (2.0-8.3) x10*3/uL Absolute Nucleated RBC 0.030 H (0.0-0.012) X10*3/uL Nucleated RBC % (auto) 0.3 H (0.0-0.2) /100WBC Neutrophils % (Manual) (45-73) % Band Neutrophils % (3-5) % Lymphocytes % (Manual) (20-40) % Abs Neuts (Manual) (2.0-8.3) X10*3/uL Lymphocytes # (Manual) (1.2-4.9) X10*3/uL Nucleated RBCs (0-0) /100WBC Percent Retic 2.4 H (0.5-1.8) % Immature Retic Fraction 33.9 H (2.3-13.4) % Retic Hgb Equivalent 28.1 L (30.0-35.0) pg Sodium (135-145) mmol/L Potassium 2.8 L* (3.3-5.1) mmol/L Chloride (96-108) mmol/L Carbon Dioxide 20 L (22-29) mmol/L BUN 90 H (9-16) mg/dL Creatinine 2.69 H (0.5-1.4) mg/dL Random Glucose 144 H (60-115) mg/dL Calcium 7.1 L (8.4-10.2) mg/dL Phosphorus 2.6 L (2.7-4.5) mg/dL Total Bilirubin (0.0-1.0) mg/dL AST (5-37) U/L Lactate Dehydrogenase 431 H (118-273) U/L C-Reactive Protein 31.15 H (< or = 0.50) mg/dL Total Protein (6.5-8.0) g/dL Albumin (3.5-5.0) g/dL Random Vancomycin (15-20) mcg/mL Crossmatch See Detail 11/25/23 Range/Units 06:02 WBC 13.6 H (4.8-10.8) X10*3/uL RBC 2.91 L (4.60-5.80) X10*6/uL Hgb 8.3 L (14.0-18.0) g/dl Hct 24.1 L (42.0-52.0) % MPV 9.1 L (9.4-12.4) fL Immature Gran % (Auto) (0.0-0.4) % Neut % (Auto) (45-73) % Lymph % (Auto) (20-40) % Lymph # (Auto) (1.2-4.9) X10*3/uL Abs Immat Gran (auto) (0.00-0.03) X10*3/uL Absolute Neuts (auto) (2.0-8.3) x10*3/uL Absolute Nucleated RBC (0.0-0.012) X10*3/uL Nucleated RBC % (auto) (0.0-0.2) /100WBC Neutrophils % (Manual) 87 H (45-73) % Band Neutrophils % 10 H (3-5) % Lymphocytes % (Manual) 1 L (20-40) % Abs Neuts (Manual) 13.2 H (2.0-8.3) X10*3/uL Lymphocytes # (Manual) 0.1 L (1.2-4.9) X10*3/uL Nucleated RBCs 1 H (0-0) /100WBC Percent Retic (0.5-1.8) % Immature Retic Fraction (2.3-13.4) % Retic Hgb Equivalent (30.0-35.0) pg Sodium 146 H (135-145) mmol/L Potassium 3.0 L (3.3-5.1) mmol/L Chloride 112 H (96-108) mmol/L Carbon Dioxide 19 L (22-29) mmol/L BUN 78 H (9-16) mg/dL Creatinine 2.20 H (0.5-1.4) mg/dL Random Glucose 148 H (60-115) mg/dL Calcium 7.2 L (8.4-10.2) mg/dL Phosphorus 2.1 L (2.7-4.5) mg/dL Total Bilirubin 1.3 H (0.0-1.0) mg/dL AST 46 H (5-37) U/L Lactate Dehydrogenase (118-273) U/L C-Reactive Protein (< or = 0.50) mg/dL Total Protein 6.4 L (6.5-8.0) g/dL Albumin 3.2 L (3.5-5.0) g/dL Random Vancomycin 11.8 L (15-20) mcg/mL Crossmatch Short CBC 11/24/23 11/25/23 Range/Units 20:03 06:02 WBC 11.2 H 13.6 H (4.8-10.8) X10*3/uL Hgb 8.0 L 8.3 L (14.0-18.0) g/dl Hct 23.1 L 24.1 L (42.0-52.0) % Plt Count 284 289 (160-400) X10*3/uL BMP 11/24/23 11/25/23 20:03 06:02 Sodium 144 146 H Potassium 2.8 L* 3.0 L Chloride 108 112 H Carbon Dioxide 20 L 19 L BUN 90 H 78 H Creatinine 2.69 H 2.20 H Calcium 7.1 L 7.2 L Liver Function 11/25/23 Range/Units 06:02 Total Bilirubin 1.3 H (0.0-1.0) mg/dL AST 46 H (5-37) U/L ALT 21 (0-40) U/L Alkaline Phosphatase 90 (39-117) U/L Albumin 3.2 L (3.5-5.0) g/dL Urine 11/23/23 Range/Units 05:05 Urine Color Yellow Urine Appearance Clear Urine pH 5.5 (5.0-9.0) Ur Specific [place] 1.015 (1.005-1.025) Urine Protein 30 (1+) H (Neg-Trace) mg/dL Urine Glucose (UA) Negative (Negative) mg/dL All other labs normal. Assessment and Plan (1) Chronic ulcer of leg: Status: Acute He has chronic leg ulcers as described above. This is likely venous in origin although is a question of pyoderma on the right leg. I have changed his dressings. I applied Santyl dressings on both sides. I wrapped both legs with Jhony and Renny bandages His lega should be elevated with pillows at all times. There has no need for surgical debridement at this time. The patient is already being followed by the Wound care nurse and we can continue with wound care regimen as recommended. Procedures Date of Service Date of Service: 11/27/23
--- NOTE | 2023-11-25 10:58 | MHC.CLN ---
DISCUSSED AT ROUNDS WITH MD PLAN TO ADVANCE DIET TOLERATED STARTED FULL LIQUIDS WITH ENSURE MONITOR TOLERANCE AND ADVANCE DIET ABLE
--- NOTE | 2023-11-25 11:21 | P.PNCC_ITS ---
Subjective Subjective Date of Service: 11/25/23 Interval History: Complaints of abdominal pain Heart rate still high around 130s to 140s Off vasopressor support Critical Care Time (minutes): 35 Physical Exam 2 Vital Signs: Vital Signs: Last Vital Signs Temp 97.9 F 11/25/23 08:00 Pulse 121 H 11/25/23 11:00 Resp 21 H 11/25/23 11:00 BP 130/83 11/25/23 11:00 Pulse Ox 93 11/25/23 11:00 O2 Del Method Room Air 11/25/23 11:00 BMI result Body Mass Index 43.3 General: In acute distress, ill appearing and tired appearing Nutritional Appearance: well nourished and overweight, lower extremity swollen Eyes: appearance normal, both eyes and all related structures; Alignment and Position: alignment normal and position normal Neck: No lymphadenopathy, no thyromegaly Resp: bilateral air entry equal, minimal added sounds Cardio: Regular rate, irregularly irregular rhythm in atrial fibrillation; Heart sounds: S1 normal heart sound present and S2 normal heart sound present GI: soft, bilateral tenderness present, no guarding, no hepatosplenomegaly : bladder normal to inspection, bladder normal to palpation, no renal angle tenderness Skin: no rashes or lesions noted and elasticity normal, rashes seen up to left mid thigh extending till the ankle Neuro: oriented to person, oriented to place, oriented to time and moves all extremities Objective Data Labs 11/25/23 06:02 11/25/23 06:02 Labs: Laboratory Results - last 24 hr 11/23/23 11/24/23 11/24/23 06:10 15:23 20:03 WBC 11.2 H RBC 2.78 L Hgb 8.0 L Hct 23.1 L MCV 83.1 MCH 28.8 MCHC 34.6 RDW 15.7 Plt Count 284 MPV 9.2 L Immature Gran % (Auto) 1.4 H Neut % (Auto) 89.7 H Lymph % (Auto) 3.5 L [place] % (Auto) 4.6 Eos % (Auto) 0.4 Baso % (Auto) 0.4 Lymph # (Auto) 0.4 L [place] # (Auto) 0.5 Eos # (Auto) 0.0 Baso # (Auto) 0.0 Abs Immat Gran (auto) 0.16 H Absolute Neuts (auto) 10.0 H Absolute Nucleated RBC 0.030 H Nucleated RBC % (auto) 0.3 H Neutrophils % (Manual) Band Neutrophils % Lymphocytes % (Manual) Monocytes % (Manual) Abs Neuts (Manual) Lymphocytes # (Manual) Monocytes # (Manual) Nucleated RBCs Platelet Estimate Plt Morphology Comment RBC Morphology Polychromasia [place] Cells Acanthocytes (Spur) Smear Path Review SEE NOTE Absolute Retic 0.066 Percent Retic 2.4 H Immature Retic Fraction 33.9 H Retic Hgb Equivalent 28.1 L Hold Purple Top SEE NOTE Sodium 144 Potassium 2.8 L* Chloride 108 Carbon Dioxide 20 L Anion Gap 19 BUN 90 H Creatinine 2.69 H Estim Creat Clear Calc 35.8 Estimated GFR 23 Random Glucose 144 H Calcium 7.1 L Phosphorus 2.6 L Magnesium 1.9 Total Bilirubin AST ALT Alkaline Phosphatase Lactate Dehydrogenase 431 H C-Reactive Protein 31.15 H Total Protein Albumin Lipase Random Vancomycin Blood Type O Positive Antibody Screen NEGATIVE ORA, Polyspecific NEGATIVE Positive ORA Work-up TNP Crossmatch See Detail 11/25/23 06:02 WBC 13.6 H RBC 2.91 L Hgb 8.3 L Hct 24.1 L MCV 82.8 MCH 28.5 MCHC 34.4 RDW 15.7 Plt Count 289 MPV 9.1 L Immature Gran % (Auto) Cancelled Neut % (Auto) Cancelled Lymph % (Auto) Cancelled [place] % (Auto) Cancelled Eos % (Auto) Cancelled Baso % (Auto) Cancelled Lymph # (Auto) Cancelled [place] # (Auto) Cancelled Eos # (Auto) Cancelled Baso # (Auto) Cancelled Abs Immat Gran (auto) Cancelled Absolute Neuts (auto) Cancelled Absolute Nucleated RBC 0.000 Nucleated RBC % (auto) 0.0 Neutrophils % (Manual) 87 H Band Neutrophils % 10 H Lymphocytes % (Manual) 1 L Monocytes % (Manual) 2 Abs Neuts (Manual) 13.2 H Lymphocytes # (Manual) 0.1 L Monocytes # (Manual) 0.3 Nucleated RBCs 1 H Platelet Estimate NORMAL Plt Morphology Comment NORMAL RBC Morphology NOTED Polychromasia 1+ (0-2) Ramin Cells 2+ (3-5) Acanthocytes (Spur) 1+ (0-2) Smear Path Review Absolute Retic Percent Retic Immature Retic Fraction Retic Hgb Equivalent Hold Purple Top Sodium 146 H Potassium 3.0 L Chloride 112 H Carbon Dioxide 19 L Anion Gap 18 BUN 78 H Creatinine 2.20 H Estim Creat Clear Calc 43.5 Estimated GFR 30 Random Glucose 148 H Calcium 7.2 L Phosphorus 2.1 L Magnesium 2.0 Total Bilirubin 1.3 H AST 46 H ALT 21 Alkaline Phosphatase 90 Lactate Dehydrogenase C-Reactive Protein Total Protein 6.4 L Albumin 3.2 L Lipase 33 Random Vancomycin 11.8 L Blood Type Antibody Screen ORA, Polyspecific Positive ORA Work-up Crossmatch Microbiology Microbiology Results: Microbiology 11/24/23 19:45 Leg Left Gram Stain - Final 11/24/23 19:45 Leg Left Routine Culture - Preliminary Culture in progress. 11/24/23 19:45 Leg Right Gram Stain - Final 11/24/23 19:45 Leg Right Routine Culture - Preliminary Culture in progress. 11/23/23 09:40 Blood - Venous Blood Culture - Preliminary No growth after 24 hours. 11/23/23 03:33 Blood - Venous Blood Culture - Preliminary Streptococcus pyogenes (Grp A) Progress Note: A&P Assessment and plan (1) Atrial fibrillation: Status: Chronic (2) Acute kidney injury: Status: Acute (3) Coagulopathy: Status: Acute (4) Chronic ulcer of leg: Status: Acute (5) Acute pancreatitis: Status: Acute Assessment and Plan: 73-year-old past medical history of moderate aortic stenosis, atrial fibrillation on Coumadin for anticoagulation presents to the with shock, drop in hemoglobin and along with INR > 26. Shock improved and is off Levophed since 11/24/2023. Has pancreatitis on the CT and left lower extremity cellulitis with rash is progressing up to mid thigh. He also has atrial fibrillation with RVR, cardioverted in the ED, not responding well to amiodarone. Undifferentiated shock: Shock has improved he is off vasopressor support since 11/24/2023 evening TTE showed normal LV systolic function, severe aortic stenosis. Atrial fibrillation with RVR: Continues to be in atrial fibrillation with RVR with heart rate going up to 150 since yesterday He received 2 amiodarone bolus of 150 mg, we will start him on a continuous amiodarone drip He was cardioverted in the ED We will add metoprolol 25 mg b.i.d. given his blood pressures are better today for rate control Warfarin for anticoagulation with her 2 to coagulopathy Acute pancreatitis: CT suggestive of acute pancreatitis, lipase slightly increased Diet as tolerated, bowel rest We will continue to closely monitor Acute blood loss anemia: His baseline hemoglobin is around 13, dropped to 5.7 the lowest, hemoglobin stable at 8.3 this morning; So far he has received 4 units of PRBC and 6 units of FFP. transfuse to keep the hemoglobin above 7 grams/deciliter No clear source of bleeding, patient denies any bloody bowel movements although his stool for occult blood is positive. He had first bowel movement in past 5 days. Reticulocyte count slightly elevated but not significant enough 2 labeled hemolytic anemia, LDH, Eda test and haptoglobin are pending to rule out hemolytic anemia CT abdomen concerning for hematoma in the right abductor muscles around the site of insertion of central line. No obvious hematoma externally, no hematoma noted on ultrasound thigh Acute kidney injury: baseline around 1.06; increased to 4.9 upon admission, currently is improving, down to 2.2 this morning Possibly secondary to ATN from acute drop in hemoglobin and shock improving with resuscitation Avoid nephrotoxic medications, closely monitor I's and O's Coagulopathy: Presented with INR greater than 26, patient on Coumadin Received 6 units of FFP, last INR is 2.4, we will repeat INR Infectious disease: Patient is on broad-spectrum antibiotics vancomycin and Zosyn Possible source of infection is the lower extremity cellulitis which is growing strep, CT abdomen showing dilated head of pancreas, possibly pancreatitis Lines: Right groin TLC we will take out if we get good peripheral Lines, Gamino catheter Prophylaxis: SCDs, pantoprazole Quality Stroke Does the patient have a stroke diagnosis?: No VTE Prior VTE?: No VTE Risk Level:: Medical - moderate - high VTE Device Contraindication: Treatment Not Tolerated VTE Drug Contraindication: N/A - Med Ordered
[2023-11-25] MEDS: Metoprolol Tartrate 25 MG TABLET PO ×2 (11:49→21:42)
[2023-11-25] MEDS: Dicyclomine HCl 10 MG CAPSULE PO ×2 (11:50→15:36)
[2023-11-25] MEDS: Magnesium Sulfate/H2O 2 GM/50 ML PIGGYBACK IV (11:50)
--- NOTE | 2023-11-25 12:24 | HO.WOUND ---
Wound Consult: Attempted Follow up 73yr old Male admitted to [facility] [place] on 11/23/23 - See progress notes and H&P for detailed history.? Wound consult follow up for Bilateral Lower Legs.? Per direct care nurse and Dr. Chavis wound assessed and changed by Dr. Chavis - He recommends continue with Santyl - no new topical recommendations. I will followup with patient tomorrow for continued assessment and dressing change.
[2023-11-25] MEDS: Amiodarone HCL 900 MG in 0.9 % Sodium Chloride 500 ML 17.27 MG IVCONT (12:53)
[2023-11-25 14:21] LABS: Prothrombin Time 107.5 SEC (11.1-13.3)
[2023-11-25 14:27] LABS: INTERNATIONAL NORM RATIO 8.8 (0.9-1.1)
[2023-11-25 14:44] LABS: Haptoglobin 235 mg/dL (43-212)
--- NOTE | 2023-11-25 16:21 | MHC.CM.PN ---
Patient from home with assist from [facility]. Wound clinic Q Fridays. DP pending PT eval. Home vs STR via bls.
[2023-11-25] MEDS: Potassium Chloride/H20 10 MEQ/100 ML PIGGYBACK 100 MEQ IV ×4 (16:35→19:41)
[2023-11-25] MEDS: Metoprolol Tartrate 5 MG/5 ML VIAL 2.5 MG IVPUSH (17:12)
[2023-11-25] MEDS: Metoprolol Tartrate 5 MG/5 ML VIAL IVPUSH (19:41)
--- NOTE | 2023-11-25 20:36 | PC.NURSE ---
Addendum entered by Marisol Haddad RN 11/26/23 07:00: HR improved to low 100's on cardizem gtt, titrated per MAP goal >65 infusing at 5mg/hr at time of handoff report. Routine morning lab draws back showing WBC elevated at 21.9 this morning from previous 13.6 as well as worsening BUN/CR. This and increased daily wt this morning 140.7 previous to current 146.5 discussed with covering BRADEN Piña; Stat bnp, crp, cxr, and lasix ordered. Lasix given kaitlynn per PA verbal order. Pt educated on health status, restricting fluid at this time, and importance of nash catheter. Despite this education from television script writer and PA at bedside this morning the pt continues to refuse a nash catheter for accurate I+O's. CXR obtained. Awaiting phlebotomy for stat labs. Handoff report given to onckarmen RN at 06:45. Addendum entered by Marisol Haddad RN 11/26/23 02:32: Patient HR not resolved with previous interventions, sustaining 120-130's. Pt continued to deny chest pain, palpitations, and other symptoms. New diffuse expiratory wheezing noted on midnight reassessment. Assessments discussed with BRADEN Piña; unable to give breathing treatment initially due to afib RVR/elevated HR. Pt started on Cardizem gtt at 5mg/hr per PA, titrated per PA verbal order with verbal MAP goal okay for 65 and above. Cardizem gtt currently infusing at 15mg/hr with HR in sustaining in low 100's and map maintained per orders. Once HR was improved 1x neb was ordered and given as well as solumedrol with improvement in wheezing. Pt denies sob and chest pain and consistently states I feel good . Breathing is even and unlabored without distress. 1 gram Magnesium given, albumin ordered and infusing. Provider ordered a nash for accurate I+O's ; difficulty obtaining accurate outputs as pt often misses urinal even when assisted by staff, and anatomy does not allow for a [place] catheter. Provider order for nash catheter for accurate I+O's discussed with patient though pt refuses nash catheter. PA notified. Plan of care continues. Original Note: Assumed care of patient at 19:00. Pt is A&Ox4. Pt in recliner, platelets and K+ repletion infusing as ordered on assuming care. Pt remains in afib, still on amiodarone gtt at 0.5 mg/min with map maintained >65 per order. HR sustaining 120-140's with pt minimal activity/ elevation of legs in chair for swelling. Pt asymptomatic with HR; denies chest pain, palpitations, dizziness, vision changes, n/v. BRADEN Piña verbal order for 1x 5mg IV metoprolol, given with some improvement, HR ranging 100-120's. Scheduled po metoprolol due this evening. Plts infused without issue. PT and CMP reassess labs ordered and in process, awaiting results at this time. Chair alarm in place. Plan of care continues.
[2023-11-25 20:45] LABS: INTERNATIONAL NORM RATIO 4.6 (0.9-1.1); Prothrombin Time 56.3 SEC (11.1-13.3)
[2023-11-25 20:54] LABS: Alanine Aminotransferase 20 U/L (0-40); Albumin Level 3.2 g/dL (3.5-5.0); Alkaline Phosphatase 95 U/L (39-117); Anion Gap 16 (12-20); Aspartate Amino Transferase 39 U/L (5-37); Bilirubin Total 1.3 mg/dL (0.0-1.0); Blood Urea Nitrogen 74 mg/dL (9-16); Calcium 7.2 mg/dL (8.4-10.2); Carbon Dioxide 21 mmol/L (22-29); Chloride 110 mmol/L (96-108); Creatinine Clr Calc Pharmacy 37.2; Estimated Glomerular Filt Rate 25; Glucose Random 189 mg/dL (60-115); Potassium 3.6 mmol/L (3.3-5.1); Sodium 143 mmol/L (135-145); Total Protein 6.6 g/dL (6.5-8.0)
[2023-11-26] VITALS (88 sets, daily range): BP systolic 76–141; BP diastolic 40–99; PULSE 63–134; RESP 14–26; TEMP 34–37.8; O2SAT 90–99; BMI 45.0
[2023-11-26] MEDS: dilTIAZem HCL 125 MG in 0.9 % Sodium Chloride 100 ML IVCONT ×2 (00:10→07:56)
[2023-11-26] MEDS: Albuterol/Iprat 2.5/0.5MG 3 ML AMPUL.NEB INHALE (01:35)
[2023-11-26] MEDS: Magnesium Sulfate/D5W 1 GM/100 ML PIGGYBACK IV (01:38)
[2023-11-26] MEDS: methylPREDNISolone Sod Succ 125 MG/2 ML VIAL 60 MG IVPUSH (01:54)
[2023-11-26] MEDS: Piperacillin Sodium/Tazobactam 4.5 GM in 0.9 % Sodium Chloride 100 ML IV ×2 (01:55→14:11)
[2023-11-26] MEDS: Albumin Human 25 % 100 ML IV ×4 (01:56→22:24)
[2023-11-26] MEDS: Pantoprazole Sodium 40 MG/10 ML VIAL IVPUSH (05:43)
[2023-11-26 05:52] LABS: VBG Base Excess -2.8 mmol/L; VBG HCO3 22 mmol/L (22-26); VBG pCO2 40 mmHg; VBG pH 7.34 (7.32-7.43); VBG pO2 35 mmHg
[2023-11-26 05:55] LABS: Venous Blood Gas Refer to POC result
[2023-11-26 05:56] LABS: Basophils Absolute Auto 0.1 X10*3/uL (0.0-0.2); Basophils Percent Auto 0.3 % (0-2); Eosinophils Percent Auto 0.2 % (0-4); Hematocrit 23.3 % (42.0-52.0); Hemoglobin 7.9 g/dl (14.0-18.0); Imm Gran Abs Auto 0.33 X10*3/uL (0.00-0.03); Imm Gran Pct Auto 1.5 % (0.0-0.4); Lymphocytes Absolute Auto 0.5 X10*3/uL (1.2-4.9); Lymphocytes Percent Auto 2.2 % (20-40); MANUAL DIFF FLAG SCAN; Mean Corpuscular HGB Conc 33.9 g/dl (31.0-36.0); Mean Corpuscular Hemoglobin 28.8 pg (27.0-33.0); Mean Platelet Volume 8.7 fL (9.4-12.4); Monocytes Absolute Auto 0.4 X10*3/uL (0.1-1.2); Monocytes Percent Auto 1.7 % (2-11); NRBC Pct Auto 0.1 /100WBC (0.0-0.2); Neutrophils Absolute Auto 20.5 x10*3/uL (2.0-8.3); Neutrophils Percent Auto 94.1 % (45-73); Platelet Count 252 X10*3/uL (160-400); Red Blood Count 2.74 X10*6/uL (4.60-5.80); Red Cell Distribution Width 16.5 % (11.0-16.0); SCAN SMEAR FLAG 1; White Blood Count 21.9 X10*3/uL (4.8-10.8)
[2023-11-26 06:16] LABS: Alanine Aminotransferase 17 U/L (0-40); Albumin Level 3.6 g/dL (3.5-5.0); Alkaline Phosphatase 90 U/L (39-117); Anion Gap 20 (12-20); Aspartate Amino Transferase 31 U/L (5-37); Bilirubin Total 1.4 mg/dL (0.0-1.0); Blood Urea Nitrogen 75 mg/dL (9-16); Calcium 7.3 mg/dL (8.4-10.2); Carbon Dioxide 19 mmol/L (22-29); Chloride 105 mmol/L (96-108); Creatinine Clr Calc Pharmacy 35.6; Estimated Glomerular Filt Rate 23; Glucose Random 188 mg/dL (60-115); Potassium 3.6 mmol/L (3.3-5.1); Sodium 140 mmol/L (135-145); Vancomycin Random 14.9 mcg/mL (15-20)
[2023-11-26 06:22] LABS: SLIDE REVIEW VERIFIED
[2023-11-26] MEDS: Furosemide 40 MG/4 ML VIAL IVPUSH (06:39)
[2023-11-26] MEDS: Dicyclomine HCl 10 MG CAPSULE PO (06:39)
[2023-11-26 06:54] LABS: C Reactive Protein 27.58 mg/dL (< or = 0.50)
[2023-11-26 07:07] LABS: B Type Natriuretic Peptide 239 pg/mL (<100)
[2023-11-26] MEDS: vancomycin HCL 750 MG in 0.9 % Sodium Chloride 250 ML 265 MG IV (07:49)
[2023-11-26] MEDS: 0.9 % Sodium Chloride Flush 3 ML SYRINGE IVFLUSH ×2 (07:58→23:38)
[2023-11-26] MEDS: oxyCODONE HCl ER 10 MG TAB.ER.12H PO (08:59)
[2023-11-26] MEDS: HYDROmorphone HCl 0.5 MG/0.5 ML SYRINGE IVPUSH (10:10)
--- NOTE | 2023-11-26 10:43 | PM.CCPN ---
Subjective Subjective Date of Service: 11/26/23 Interval History: Continues to have episodes of atrial fibrillation with RVR, started on diltiazem drip after which the heart rate is slightly better. Currently the patient is on diltiazem drip, amiodarone drip for control of atrial fibrillation with RVR He has episodes of cough leading to further tachypnea and dyspnea The left leg erythema shows worsening is to a high thigh now Acute kidney injury is also worsening Chest x-ray done last night showed atelectasis of the left lower lobe Critical Care Time (minutes): 40 Physical Exam Vital Signs: Vital Signs: Last Vital Signs Temp 97.9 F 11/26/23 08:00 Pulse 107 H 11/26/23 10:00 Resp 19 11/26/23 10:00 BP 123/78 11/26/23 10:00 Pulse Ox 93 11/26/23 10:00 O2 Del Method Room Air 11/26/23 10:00 BMI result Body Mass Index 45.0 General: Patient is in acute distress, ill appearing and tired appearing Nutritional Appearance: well nourished and overweight Eyes: appearance normal, both eyes and all related structures; Alignment and Position: alignment normal and position normal Neck: No lymphadenopathy, no thyromegaly Resp: bilateral air entry equal, occasional added sounds present mostly in the lung bases Cardio: Tachycardic, irregularly irregular rhythm in atrial fibrillation; Heart sounds: S1 normal heart sound present and S2 normal heart sound present GI: soft, mild tenderness present, no guarding, no hepatosplenomegaly : bladder normal to inspection, bladder normal to palpation, no renal angle tenderness Skin: Left leg erythema is progressing is above mid thigh right now, below cough has a couple of blisters redness and erythema both are worsening in the leg too Neuro: oriented to person, oriented to place, oriented to time and moves all extremities Objective Data Labs 11/26/23 05:37 11/26/23 05:37 Labs: Laboratory Results - last 24 hr 11/23/23 11/24/23 11/25/23 06:10 15:23 13:34 WBC RBC Hgb Hct MCV MCH MCHC RDW Plt Count MPV Immature Gran % (Auto) Neut % (Auto) Lymph % (Auto) [place] % (Auto) Eos % (Auto) Baso % (Auto) Lymph # (Auto) [place] # (Auto) Eos # (Auto) Baso # (Auto) Abs Immat Gran (auto) Absolute Neuts (auto) Absolute Nucleated RBC Nucleated RBC % (auto) Smear Tech's Comments Haptoglobin 235 H PT 107.5 H D INR 8.8 H* D VBG pH VBG pCO2 VBG pO2 VBG HCO3 VBG O2 Saturation VBG Base Excess Sodium Potassium Chloride Carbon Dioxide Anion Gap BUN Creatinine Estim Creat Clear Calc Estimated GFR Random Glucose Calcium Total Bilirubin AST ALT Alkaline Phosphatase C-Reactive Protein B-Natriuretic Peptide Total Protein Albumin Random Vancomycin Blood Type O Positive Antibody Screen NEGATIVE ORA, Polyspecific NEGATIVE Positive ORA Work-up TNP Crossmatch See Detail 11/25/23 11/26/23 11/26/23 20:27 05:37 05:43 WBC 21.9 H RBC 2.74 L Hgb 7.9 L Hct 23.3 L MCV 85.0 MCH 28.8 MCHC 33.9 RDW 16.5 H Plt Count 252 MPV 8.7 L Immature Gran % (Auto) 1.5 H Neut % (Auto) 94.1 H Lymph % (Auto) 2.2 L [place] % (Auto) 1.7 L Eos % (Auto) 0.2 Baso % (Auto) 0.3 Lymph # (Auto) 0.5 L [place] # (Auto) 0.4 Eos # (Auto) 0.0 Baso # (Auto) 0.1 Abs Immat Gran (auto) 0.33 H Absolute Neuts (auto) 20.5 H Absolute Nucleated RBC 0.020 H Nucleated RBC % (auto) 0.1 Smear Tech's Comments VERIFIED Haptoglobin PT 56.3 H D INR 4.6 H D VBG pH 7.34 VBG pCO2 40 VBG pO2 35 VBG HCO3 22 VBG O2 Saturation 51.0 VBG Base Excess -2.8 Sodium 143 140 Potassium 3.6 3.6 Chloride 110 H 105 Carbon Dioxide 21 L 19 L Anion Gap 16 20 BUN 74 H 75 H Creatinine 2.57 H 2.75 H Estim Creat Clear Calc 37.2 35.6 Estimated GFR 25 23 Random Glucose 189 H 188 H Calcium 7.2 L 7.3 L Total Bilirubin 1.3 H 1.4 H AST 39 H 31 ALT 20 17 Alkaline Phosphatase 95 90 C-Reactive Protein 27.58 H B-Natriuretic Peptide 239 H Total Protein 6.6 7.0 Albumin 3.2 L 3.6 Random Vancomycin 14.9 L Blood Type Antibody Screen ORA, Polyspecific Positive ORA Work-up Crossmatch Microbiology Microbiology Results: Microbiology 11/24/23 19:45 Leg Right Gram Stain - Final 11/24/23 19:45 Leg Right Routine Culture - Preliminary Culture in progress. 11/23/23 09:40 Blood - Venous Blood Culture - Preliminary No growth after 48 hours. 11/24/23 19:45 Leg Left Gram Stain - Final 11/24/23 19:45 Leg Left Routine Culture - Preliminary Culture in progress. 11/23/23 03:33 Blood - Venous Blood Culture - Preliminary Streptococcus pyogenes (Grp A) Progress Note: A&P Assessment and plan (1) Acute pancreatitis: Status: Acute (2) Atrial fibrillation: Status: Chronic (3) Acute kidney injury: Status: Acute (4) Coagulopathy: Status: Acute (5) Sepsis: Status: Acute (6) Acute GI bleeding: Status: Acute (7) Pneumonia: Status: Acute Plan 73-year-old past medical history of moderate aortic stenosis, atrial fibrillation on Coumadin for anticoagulation presents to the with shock, drop in hemoglobin and along with INR > 26. Shock improved and is off Levophed since 11/24/2023. Has pancreatitis on the CT and left lower extremity cellulitis with rash is progressing up to mid thigh. He also has atrial fibrillation with RVR, cardioverted in the ED, not responding well to amiodarone. Cardio: Shock has improved, off vasopressors TTE showed normal LV systolic function, severe aortic stenosis. Atrial fibrillation with RVR: Continues to be in atrial fibrillation with RVR on amiodarone drip and diltiazem drip the heart rate is slightly better when compared to yesterday He received 2 amiodarone bolus of 150 mg, on a continuous amiodarone drip for 2 days now, we will switch to amiodarone p.o. 400 mg t.i.d. He was cardioverted in the ED Metoprolol 25 mg b.i.d. added, we will add oral diltiazem 60 mg b.i.d. to titrate down the diltiazem drip Warfarin for anticoagulation with her 2 to coagulopathy, INR still high Acute pancreatitis: CT suggestive of acute pancreatitis, lipase slightly increased Diet as tolerated, bowel rest We will continue to closely monitor Acute blood loss anemia: His baseline hemoglobin is around 13, dropped to 5.7 the lowest, hemoglobin stable at 7.9 this morning dropped from 8.3 yesterday; So far he has received 3 units of PRBC and 6 units of FFP. transfuse to keep the hemoglobin above 7 grams/deciliter No clear source of bleeding, patient denies any bloody bowel movements although his stool for occult blood is positive. He had first bowel movement in past 5 days. Reticulocyte count slightly elevated but not significant enough 2 labeled hemolytic anemia, LDH slightly high 400s can be multifactorial, haptoglobin normal to slightly high; pending Eda test. CT abdomen concerning for hematoma in the right abductor muscles around the site of insertion of central line. No obvious hematoma externally, no hematoma noted on ultrasound thigh Acute kidney injury: baseline around 1.06; increased to 4.9 upon admission, trended down yesterday but is up to 2.75 this morning. We will give him Lasix 80 mg t.i.d. today as he is volume overloaded Possibly secondary to ATN from acute drop in hemoglobin and shock improving with resuscitation Avoid nephrotoxic medications, closely monitor I's and O's Coagulopathy: Presented with INR greater than 26, patient on Coumadin Received 6 units of FFP, last INR is 4, we will repeat INR Infectious disease: Patient is on broad-spectrum antibiotics vancomycin and Zosyn Possible source of infection is the lower extremity cellulitis 1 set of blood culture grew strep which might be coming from his leg, CT abdomen showing dilated head of pancreas, possibly pancreatitis Lines: Right groin TLC No Gamino catheter Prophylaxis: SCDs, pantoprazole Quality Stroke Does the patient have a stroke diagnosis?: No VTE Prior VTE?: No VTE Risk Level:: Medical - moderate - high VTE Device Contraindication: Treatment Not Tolerated VTE Drug Contraindication: N/A - Med Ordered
--- NOTE | 2023-11-26 10:57 | P.CDIM_ITS ---
PROVIDER RESPONSE TEXT: To clarify, the appropriate diagnosis supported by the clinical indicators: Hypernatremia: Possible QUERY TEXT: PHYSICIAN'S DOCUMENTATION REQUEST Date of Query: 11/26/2023 09:54 AM EDT Patient Name: Andre Tabor Admit Date: 11/23/2023 Dear Yonathan Jorge MD, A review of the medical record indicates additional documentation may be needed. Please review below and update the documentation accordingly. Clinical Indicators: LAB FINDINGS: sodium 146 H Fluids Based on the above, is there a diagnosis the correlates with these labs: Hypernatremia possible, probable, suspected Labs indicate a diagnosis of (please specify) Other (explain) Clinically unable to determine (explain) Thank you, Tiffany Fair, CCS, CDIS Use of terms such as suspected, likely, concern for, or probable (associated with a specific diagnosi s that is being evaluated, monitored, or treated as if it exists) are acceptable and can be coded in the inpatient se tting, when documented at the time of discharge. Please use your independent medical judgment in providing your response. THIS QUERY IS PART OF THE PERMANENT MEDICAL RECORD
--- NOTE | 2023-11-26 11:00 | HO.WOUND ---
Wound Consult: Follow up 73yr old?male admitted to [facility] 11/23/23 - See progress notes and H&P for detailed history.? Wound consult follow up for bilateral Lower Legs.? Patient agreeable to assessment and photo documentation.? Chart review reveals patient follows with wound clinic for treatment and has VNA services in place. Seen by surgery yesterday for assessment no intervention needed per Dr. Chavis and to continue with Santyl for topical treatment. Patient premedicated by direct care nurse - see MAR. Dr. Jorge requesting Dr. Chavis to re-assess wounds due to worsening erythema. Since follow up Dr. Chavis had arrived to bedside agreed wound bed looked better provider will consider Ct scan for ruleout etiology of increased erythema. At bedside Dr. Chavis did not appreciate any need for vascular consultation at this time. Prior to Dr. Chavis arrival the patient was experiencing significant pain during the dressing change but he reported it was less than pervious dressing change. Dressing change completed and patient began to decompensation rapidly respiratory noonan. Direct care nurse made aware, Respiratory therapist arrived to bedside patient continued to decompensation and ultimately vomited and coded. Code Blue initiated by direct care team along with CPR. See Charting for details on Code. 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 note there are lesions on the posterior side of the left legs as well Drainage / Odor: Small amount of drainage - no odor noted Edges: ?irregular Malini wound: left leg with red pink erythema and swelling, periwound with hyperpigmentation noted - No Induration, Fluctuance noted Pain: reports pain Goals of Treatment: ? Santyl for enzymatic debridement No New topical recommendations. Recommendations: 1. Turn and Reposition every 2 hours and as needed for patient comfort.? Use pillows or wedges to support off loading positions. 2. Off Load all bony prominences with use of pillows and heel boots if needed.? Apply Preventative foams where needed. ? 3. Monitor for incontinence and moisture control, use barrier creams when needed for prevention and treatment. 4. Provide adequate and supplemental nutrition.? 5. Order or Continue low air loss mattress. 6. Bilateral Lower Legs - Elevate Lower Legs - Cleanse with normal saline, pat dry. ?Apply barrier to the immediate malini wound, apply thick layer of Santyl to entire wound bed, cover with xeroform, secure dry gauze, ABD pads and gauze wrap, change Daily. Continue to follow with wound clinic outpatient. Re-consult wound care Nurse for wound deterioration or wound changes.
[2023-11-26] MEDS: propofoL 1,000 MG/100 ML VIAL 26.37 MG IVCONT ×2 (11:20→21:19)
--- NOTE | 2023-11-26 11:47 | PM.CCN ---
Critical Care Event Note Summary Date of Service: 11/26/23 Code activated: Yes Narrative: This case had a high probability of a clinically significant, sudden, or life threatening deterioration of this patient's condition which required my full and direct attention, intervention and personal management. Critical Care Time (minutes): 40 Comment: Patient was sitting on this on his bed, with increase cough reflex when he suddenly started having large amount of vomitus and aspirated and went into pea cardiac arrest Code blue was called, chest compression was initiated, received 3 amps of epinephrine, 3 amps of sodium bicarbonate, 10 g of calcium. As the code was going on patient had large vomitus which was actively suctioned and patient was intubated and placed on ventilator support for securing airway during the code. ROSC was achieved after 7 minutes of compressions. Patient remains on the ventilator, propofol was added for sedation, we will add fentanyl for analgesia. NG tube placed and sputa for suction, sectioned about 2-1/2-3 L of bilious fluids from his stomach.
[2023-11-26] MEDS: Phenylephrine HCL 20 MG in 0.9 % Sodium Chloride 250 ML 55.38 MG IVCONT (12:08)
--- NOTE | 2023-11-26 12:20 | PM.PNGS ---
Subjective Subjective Date of Service: 11/27/23 Interval history: For follow-up for bilateral lower extremity ulcers Went into CP arrest just earlier after aspirating, now intubated On pressors Physical Exam Vital Signs: Vital Signs: Last Vital Signs Temp 97.9 F 11/26/23 08:00 Pulse 107 H 11/26/23 10:00 Resp 19 11/26/23 10:00 BP 123/78 11/26/23 10:00 Pulse Ox 93 11/26/23 10:00 O2 Del Method Room Air 11/26/23 10:00 FiO2 60 11/26/23 11:41 BMI result Body Mass Index 45.0 Const: Other: Intubated, on pressors Resp: Other: Intubated, on ventilator GI: Palpation (GI): Soft to palpation Extrem: Other: Right lower leg - anteriorly with what appears to be venous stasis ulcer, clean, no necrotizing process, no significant cellulitis Left lower leg with circumferential diffuse ulcer as well, no obvious necrotizing process, some cellulitic changes extending to the thigh, no signs of gangrene, has chronic edema Objective Data Active Medications Albuterol Sulfate (Albuterol Sulfate (0.083%) 2.5 Mg/3 Ml Vial.Neb) 2.5 mg INHALE Q6H PRN PRN Reason: Wheezing Amiodarone HCl (Amiodarone Hcl 200 Mg Tablet) 400 mg PO TID MONA Bisacodyl (Bisacodyl 5 Mg Tablet.Dr) 10 mg PO DAILY PRN PRN Reason: Constipation Dicyclomine HCl (Dicyclomine Hcl 10 Mg Capsule) 10 mg PO TIDAC [facility] Last Admin: 11/26/23 12:09 Dose: Not Given Documented By: CONCHIS Non-Admin Reason: hold per Diltiazem HCl (Diltiazem Hcl Sr 60 Mg Cap.Er.12h) 60 mg PO BID MONA; Protocol Last Admin: 11/26/23 11:32 Dose: Not Given Documented By: CONCHIS Non-Admin Reason: hold per Furosemide (Furosemide 100 Mg/10 Ml Vial) 80 mg IVPUSH Q8H MONA; Protocol Last Admin: 11/26/23 11:32 Dose: Not Given Documented By: CONCHIS Non-Admin Reason: Hold per Hydromorphone HCl (Hydromorphone Hcl 0.5 Mg/0.5 Ml Syringe) 0.5 mg IVPUSH Q4H PRN; Protocol PRN Reason: Pain, Severe (Pain Scale 7-10) Last Admin: 11/26/23 10:10 Dose: 0.5 mg Documented By: CONCHIS Piperacillin Sod/Tazobactam (Sod 4.5 gm/ Sodium Chloride) 100 mls @ 200 mls/hr IV Q12H [facility] Last Infusion: 11/26/23 02:25 Dose: Infused Documented By: BROWN Amiodarone HCl 900 mg/ Sodium (Chloride) 518 mls @ 17.267 mls/hr IVCONT .Q24H MONA; Protocol Last Admin: 11/26/23 12:16 Dose: Not Given Documented By: CONCHIS Non-Admin Reason: IV Running Diltiazem HCl 125 mg/ Sodium (Chloride) 125 mls @ 0 mls/hr IVCONT .Q0M MONA; Protocol Last Titration: 11/26/23 10:15 Dose: 10 mg/hr, 10 mls/hr Documented By: CONCHIS Phenylephrine HCl 20 mg/ (Sodium Chloride) 252 mls @ 0 mls/hr IVCONT .Q0M MONA; Protocol Propofol (Diprivan) 1,000 mg in 100 mls @ 0 mls/hr IVCONT .Q0M MONA; Protocol Ondansetron HCl (Ondansetron Hcl 4 Mg/2 Ml Vial) 4 mg IVPUSH Q6H PRN PRN Reason: Nausea and Vomiting Last Admin: 11/25/23 02:52 Dose: 4 mg Documented By: BROWN Oxycodone HCl (Oxycodone Hcl Er 10 Mg Tab.Er.12h) 10 mg PO BID [facility] Last Admin: 11/26/23 08:59 Dose: 10 mg Documented By: CONCHIS Oxycodone HCl (Oxycodone Hcl Immed Release 5 Mg Tablet) 5 mg PO Q6H PRN PRN Reason: Pain, Severe (Pain Scale 7-10) Last Admin: 11/23/23 14:35 Dose: 5 mg Documented By: CONCHIS Pantoprazole Sodium (Pantoprazole Sodium 40 Mg/10 Ml Vial) 40 mg IVPUSH DAILY@0630 [facility] Last Admin: 11/26/23 05:43 Dose: 40 mg Documented By: BROWN Pharmacy Consult (Consult Rx Vancomycin Dosing) 1 each MISCELLANE DAILY PRN PRN Reason: Consult order Senna (Senna [place] Extract Oral Syrup 15 Ml Syrup) 15 ml PO BEDTIME [facility] Last Admin: 11/25/23 19:41 Dose: 15 ml Documented By: BROWN Sodium Chloride (0.9 % Sodium Chloride Flush 3 Ml Syringe) 3 ml IVFLUSH QSHIFT [facility] Last Admin: 11/26/23 07:58 Dose: 3 ml Documented By: CONCHIS Sodium Chloride (Sodium Chloride 3 % Inhalation 15 Ml Vial.Neb) 4 ml INHALE Q4H PRN PRN Reason: Cough Labs 11/27/23 05:08 11/27/23 05:08 Labs: Laboratory Results - last 24 hr 11/23/23 11/24/23 11/25/23 06:10 15:23 13:34 MCV MCH MCHC RDW Plt Count MPV Immature Gran % (Auto) Neut % (Auto) Lymph % (Auto) [place] % (Auto) Eos % (Auto) Baso % (Auto) Lymph # (Auto) [place] # (Auto) Eos # (Auto) Baso # (Auto) Abs Immat Gran (auto) Absolute Neuts (auto) Absolute Nucleated RBC Nucleated RBC % (auto) Smear Tech's Comments Haptoglobin 235 H PT 107.5 H D INR 8.8 H* D VBG pH VBG pCO2 VBG pO2 VBG HCO3 VBG O2 Saturation VBG Base Excess Anion Gap Estim Creat Clear Calc Estimated GFR Random Glucose Calcium Total Bilirubin AST ALT Alkaline Phosphatase C-Reactive Protein B-Natriuretic Peptide Total Protein Albumin Random Vancomycin Blood Type O Positive Antibody Screen NEGATIVE ORA, Polyspecific NEGATIVE Positive ORA Work-up TNP Crossmatch See Detail 11/25/23 11/26/23 11/26/23 20:27 05:37 05:43 MCV 85.0 MCH 28.8 MCHC 33.9 RDW 16.5 H Plt Count 252 MPV 8.7 L Immature Gran % (Auto) 1.5 H Neut % (Auto) 94.1 H Lymph % (Auto) 2.2 L [place] % (Auto) 1.7 L Eos % (Auto) 0.2 Baso % (Auto) 0.3 Lymph # (Auto) 0.5 L [place] # (Auto) 0.4 Eos # (Auto) 0.0 Baso # (Auto) 0.1 Abs Immat Gran (auto) 0.33 H Absolute Neuts (auto) 20.5 H Absolute Nucleated RBC 0.020 H Nucleated RBC % (auto) 0.1 Smear Tech's Comments VERIFIED Haptoglobin PT 56.3 H D INR 4.6 H D VBG pH 7.34 VBG pCO2 40 VBG pO2 35 VBG HCO3 22 VBG O2 Saturation 51.0 VBG Base Excess -2.8 Anion Gap 16 20 Estim Creat Clear Calc 37.2 35.6 Estimated GFR 25 23 Random Glucose 189 H 188 H Calcium 7.2 L 7.3 L Total Bilirubin 1.3 H 1.4 H AST 39 H 31 ALT 20 17 Alkaline Phosphatase 95 90 C-Reactive Protein 27.58 H B-Natriuretic Peptide 239 H Total Protein 6.6 7.0 Albumin 3.2 L 3.6 Random Vancomycin 14.9 L Blood Type Antibody Screen ORA, Polyspecific Positive ORA Work-up Crossmatch Microbiology Microbiology Results: Microbiology 11/24/23 19:45 Gram Stain - Final Leg Right Routine Culture - Preliminary Culture in progress. 11/23/23 09:40 Blood Culture - Preliminary Blood - Venous No growth after 48 hours. 11/24/23 19:45 Gram Stain - Final Leg Left Routine Culture - Preliminary Culture in progress. Procedures Date of Service Date of Service: 11/27/23 Progress Note: A&P Assessment and plan (1) Chronic ulcer of leg: Status: Acute Assessment and Plan: I have changed his dressings No obvious necrotizing process or induration The patient just had cardiopulmonary arrest after aspiration, with the return of spontaneous circulation Okay to do CT scan of the left leg including the thigh to rule out any abscess collection Otherwise no obvious necrotizing process Significant edema on the left leg but soft Etiology likely secondary chronic venous disease on both sides Time Spent With Patient Time: Total time managing care of this patient today ____ minutes. Quality Stroke Does the patient have a stroke diagnosis?: No VTE Prior VTE?: No VTE Risk Level:: Medical - moderate - high VTE Device Contraindication: Treatment Not Tolerated VTE Drug Contraindication: N/A - Med Ordered
[2023-11-26 12:54] LABS: Prothrombin Time 135.9 SEC (11.1-13.3)
[2023-11-26 12:58] LABS: INTERNATIONAL NORM RATIO 11.1 (0.9-1.1)
[2023-11-26] MEDS: propofoL 1,000 MG/100 ML VIAL 35.16 MG IVCONT ×3 (13:13→18:26)
--- NOTE | 2023-11-26 13:13 | MHC.CM.PN ---
Pt had a code called today in response to vomiting w/aspiration. Pt required emergent intubation for airway management - CM to follow
[2023-11-26] MEDS: Phenylephrine HCL 20 MG in 0.9 % Sodium Chloride 250 ML 221.51 MG IVCONT ×2 (13:39→14:30)
[2023-11-26] MEDS: Amiodarone HCL 900 MG in 0.9 % Sodium Chloride 500 ML 17.27 MG IVCONT (14:11)
[2023-11-26] MEDS: Furosemide 100 MG/10 ML VIAL 80 MG IVPUSH ×2 (14:26→17:39)
--- NOTE | 2023-11-26 15:16 | PC.NURSE ---
1024 - patient experiencing persistent nonproductive cough, audible wheezing, no other complaints - MD notified 1105 - RT called to bedside for hypertonic saline breathing treatment 1113 - this RN called to bedside by RT - patient sitting up right projectile vomiting thick green emesis 1114 - patient unresponsive, cyanotic, no pulse - Code Blue called - see separate code sheet Patient intubated 7.5 ett, 25cm @ lip, sedated on propofol. Requiring Leif to maintain MAP >65. Afib on monitor, HR 80-90's - continued on Amio & Cardizem gtts per EMAR. LS inspiratory and expiratory wheeze throughout right side, dim throughout left. Scant thin cream inline secretions. OGT to continuos suction post intubation draining approx. 2900cc bilious content - OGT now to low intermittent suction per MD order. Gamino placed & patent - draining <20cc/hr - MD aware - okay to give Lasix 80mg IVP per MD. INR 11.1 critical - FFP ordered and administered over [address] Jorge[address] Wound nurse & Dr Chavis at bedside to redress wounds to lower extremities - plan for L lower extremity CT at 1700. Family at bedside and updated by this RN & MD. Patient bathed, high fall risk precautions in place.
[2023-11-26] MEDS: Phenylephrine HCL 20 MG in 0.9 % Sodium Chloride 250 ML 276.89 MG IVCONT ×6 (15:28→20:01)
[2023-11-26 17:28] LABS: CRP High Sensitivity >20.0 mg/L
[2023-11-26 20:39] LABS: Hematocrit 22.3 % (42.0-52.0); Hemoglobin 7.5 g/dl (14.0-18.0); Mean Corpuscular HGB Conc 33.6 g/dl (31.0-36.0); Mean Corpuscular Volume 86.1 fL (80.0-98.0); NRBC Pct Auto 0.4 /100WBC (0.0-0.2); Platelet Count 277 X10*3/uL (160-400); Red Blood Count 2.59 X10*6/uL (4.60-5.80)
[2023-11-26] MEDS: Phenylephrine HCL 20 MG in 0.9 % Sodium Chloride 250 ML 332.26 MG IVCONT (20:50)
[2023-11-26 20:53] LABS: Alanine Aminotransferase 17 U/L (0-40); Albumin Level 3.1 g/dL (3.5-5.0); Alkaline Phosphatase 85 U/L (39-117); Anion Gap 18 (12-20); Aspartate Amino Transferase 36 U/L (5-37); Bilirubin Total 1.5 mg/dL (0.0-1.0); Blood Urea Nitrogen 78 mg/dL (9-16); Calcium 7.1 mg/dL (8.4-10.2); Carbon Dioxide 20 mmol/L (22-29); Chloride 107 mmol/L (96-108); Estimated Glomerular Filt Rate 18; Glucose Random 163 mg/dL (60-115); Magnesium 2.3 mg/dL (1.6-2.6); Phosphorus 3.7 mg/dL (2.7-4.5); Potassium 3.8 mmol/L (3.3-5.1); Sodium 141 mmol/L (135-145); Total Protein 6.2 g/dL (6.5-8.0)
[2023-11-26 20:58] LABS: White Blood Count 33.4 X10*3/uL (4.8-10.8)
[2023-11-26 21:14] LABS: Band Neutrophils Percent 19 % (3-5); Basophils Abs Manual 0.3 X10*3/uL (0.0-0.2); Basophils Percent Manual 1 % (0-2); Lymphocytes Absolute Manual 1.3 X10*3/uL (1.2-4.9); Lymphocytes Percent Manual 4 % (20-40); Monocytes Absolute Manual 0.3 X10*3/uL (0.1-1.2); Monocytes Percent Manual 1 % (2-11); Neutrophils Absolute Manual 31.4 X10*3/uL (2.0-8.3); Neutrophils Percent Manual 75 % (45-73)
[2023-11-26 21:15] LABS: Acanthocytes 1+ (0-2) /OIF; Burr Cells 1+ (0-2) /OIF; Macrocytosis 1+ (5-14) /OIF; Ovalocytes 1+ (5-14) /OIF; Platelet Estimate NORMAL (NORMAL); Platelet Morphology Comment NORMAL; Polychromasia 1+ (0-2) /OIF; RBC Morphology NOTED; Toxic Granulation PRESENT
[2023-11-26] MEDS: Phenylephrine HCL 100 MG in 0.9 % Sodium Chloride 250 ML 68.56 MG IVCONT (21:33)
[2023-11-27] VITALS (41 sets, daily range): BP systolic 87–121; BP diastolic 45–77; PULSE 74–95; RESP 13–26; TEMP 34–37.9; O2SAT 90–97; BMI 44.7
[2023-11-27] MEDS: Phenylephrine HCL 100 MG in 0.9 % Sodium Chloride 250 ML 79.99 MG IVCONT ×4 (00:28→09:01)
[2023-11-27] MEDS: propofoL 1,000 MG/100 ML VIAL 26.37 MG IVCONT ×8 (00:55→23:47)
[2023-11-27] MEDS: Furosemide 100 MG/10 ML VIAL 80 MG IVPUSH ×3 (03:14→17:48)
[2023-11-27] MEDS: Piperacillin Sodium/Tazobactam 4.5 GM in 0.9 % Sodium Chloride 100 ML IV ×2 (03:15→14:05)
[2023-11-27 05:22] LABS: VBG Base Excess -7.2 mmol/L; VBG HCO3 18 mmol/L (22-26); VBG pCO2 39 mmHg; VBG pH 7.27 (7.32-7.43); VBG pO2 37 mmHg
[2023-11-27 05:42] LABS: Basophils Absolute Auto 0.1 X10*3/uL (0.0-0.2); Basophils Percent Auto 0.3 % (0-2); Hematocrit 22.7 % (42.0-52.0); Hemoglobin 7.5 g/dl (14.0-18.0); Imm Gran Abs Auto 0.66 X10*3/uL (0.00-0.03); Imm Gran Pct Auto 2.4 % (0.0-0.4); Lymphocytes Absolute Auto 1.7 X10*3/uL (1.2-4.9); MANUAL DIFF FLAG SCAN; Mean Corpuscular Hemoglobin 28.6 pg (27.0-33.0); Mean Corpuscular Volume 86.6 fL (80.0-98.0); Mean Platelet Volume 9.4 fL (9.4-12.4); Monocytes Absolute Auto 0.8 X10*3/uL (0.1-1.2); Monocytes Percent Auto 2.9 % (2-11); Neutrophils Absolute Auto 24.6 x10*3/uL (2.0-8.3); Neutrophils Percent Auto 88.4 % (45-73); Platelet Count 281 X10*3/uL (160-400); Red Blood Count 2.62 X10*6/uL (4.60-5.80); SCAN SMEAR FLAG 1; White Blood Count 27.8 X10*3/uL (4.8-10.8)
[2023-11-27 05:49] LABS: Venous Blood Gas Refer to POC result
[2023-11-27] MEDS: Pantoprazole Sodium 40 MG/10 ML VIAL IVPUSH (05:52)
[2023-11-27 05:54] LABS: Prothrombin Time 96.5 SEC (11.1-13.3)
[2023-11-27 05:55] LABS: Vancomycin Random 16.5 mcg/mL (15-20)
[2023-11-27 05:57] LABS: INTERNATIONAL NORM RATIO 7.9 (0.9-1.1)
[2023-11-27 05:58] LABS: Alanine Aminotransferase 16 U/L (0-40); Albumin Level 3.4 g/dL (3.5-5.0); Alkaline Phosphatase 75 U/L (39-117); Anion Gap 23 (12-20); Aspartate Amino Transferase 38 U/L (5-37); Bilirubin Total 1.7 mg/dL (0.0-1.0); Blood Urea Nitrogen 87 mg/dL (9-16); Calcium 7.3 mg/dL (8.4-10.2); Carbon Dioxide 16 mmol/L (22-29); Chloride 107 mmol/L (96-108); Creatinine Clr Calc Pharmacy 25.8; Estimated Glomerular Filt Rate 16; Glucose Random 152 mg/dL (60-115); Magnesium 2.3 mg/dL (1.6-2.6); Phosphorus 4.5 mg/dL (2.7-4.5); Potassium 3.9 mmol/L (3.3-5.1); Sodium 142 mmol/L (135-145); Total Protein 6.3 g/dL (6.5-8.0)
[2023-11-27 06:02] LABS: SLIDE REVIEW VERIFIED
[2023-11-27] MEDS: 0.9 % Sodium Chloride Flush 3 ML SYRINGE IVFLUSH ×2 (07:12→15:28)
--- NOTE | 2023-11-27 08:33 | P.PNCC_ITS ---
Subjective Subjective Date of Service: 11/27/23 Interval History: Had a very eventful day yesterday where he aspirated a large volume of vomitus and went into cardiac arrest needing emergent intubation and CPR for about 7 minutes Continues to be on ventilator support this morning Heart rate better controlled, off diltiazem drip, on amiodarone drip Renal function worsening creatinine up to 3.78, slightly acidotic CT leg showed no collections or air CT abdomen showed evidence of pancreatitis and nonobstructing renal calculi with no evidence of hydronephrosis CT head did not show any acute intracranial changes Critical Care Time (minutes): 45 Physical Exam 2 Vital Signs: Vital Signs: Last Vital Signs Temp 99.7 F 11/27/23 07:58 Pulse 81 11/27/23 07:58 Resp 18 11/27/23 07:58 BP 111/71 11/27/23 07:58 Pulse Ox 90 L 11/27/23 07:58 O2 Del Method Mechanical Ventil ation 11/27/23 07:58 FiO2 50 11/27/23 08:08 BMI result Body Mass Index 44.7 General: In acute distress, ill appearing and tired appearing Nutritional Appearance: well nourished and overweight Eyes: appearance normal, both eyes and all related structures; Alignment and Position: alignment normal and position normal Neck: No lymphadenopathy, no thyromegaly Resp: bilateral air entry equal, occasional added sounds present mostly in the lung bases Cardio: Normal rate, irregularly irregular rhythm; Heart sounds: S1 normal heart sound present and S2 normal heart sound present GI: soft, nontender, no guarding, no hepatosplenomegaly : bladder normal to inspection, bladder normal to palpation, no renal angle tenderness Skin: Redness and rashes extending up to high upper thigh in the left leg Neuro: oriented to person, oriented to place, oriented to time and moves all extremities Objective Data Labs 11/27/23 05:08 11/27/23 05:08 Labs: Laboratory Results - last 24 hr 11/25/23 11/26/23 11/26/23 06:02 12:31 13:37 WBC RBC Hgb Hct MCV MCH MCHC RDW Plt Count MPV Immature Gran % (Auto) Neut % (Auto) Lymph % (Auto) [place] % (Auto) Eos % (Auto) Baso % (Auto) Lymph # (Auto) [place] # (Auto) Eos # (Auto) Baso # (Auto) Abs Immat Gran (auto) Absolute Neuts (auto) Absolute Nucleated RBC Nucleated RBC % (auto) Neutrophils % (Manual) Band Neutrophils % Lymphocytes % (Manual) Monocytes % (Manual) Basophils % (Manual) Abs Neuts (Manual) Lymphocytes # (Manual) Monocytes # (Manual) Basophils # (Manual) Toxic Granulation Platelet Estimate Plt Morphology Comment RBC Morphology Polychromasia Macrocytosis Ovalocytes [place] Cells Acanthocytes (Spur) Smear Tech's Comments PT 135.9 H D INR 11.1 H* D VBG pH VBG pCO2 VBG pO2 VBG HCO3 VBG O2 Saturation VBG Base Excess Sodium Potassium Chloride Carbon Dioxide Anion Gap BUN Creatinine Estim Creat Clear Calc Estimated GFR Random Glucose Calcium Phosphorus Magnesium Total Bilirubin AST ALT Alkaline Phosphatase C-React Prot High Sens >20.0 H Total Protein Albumin Random Vancomycin Blood Type O Positive Antibody Screen NEGATIVE 11/26/23 11/27/23 11/27/23 20:32 05:08 05:14 WBC 33.4 H* 27.8 H RBC 2.59 L 2.62 L Hgb 7.5 L 7.5 L Hct 22.3 L 22.7 L MCV 86.1 86.6 MCH 29.0 28.6 MCHC 33.6 33.0 RDW 17.0 H 17.0 H Plt Count 277 281 MPV 9.0 L 9.4 Immature Gran % (Auto) Cancelled 2.4 H Neut % (Auto) Cancelled 88.4 H Lymph % (Auto) Cancelled 6.0 L [place] % (Auto) Cancelled 2.9 Eos % (Auto) Cancelled 0.0 Baso % (Auto) Cancelled 0.3 Lymph # (Auto) Cancelled 1.7 [place] # (Auto) Cancelled 0.8 Eos # (Auto) Cancelled 0.0 Baso # (Auto) Cancelled 0.1 Abs Immat Gran (auto) Cancelled 0.66 H Absolute Neuts (auto) Cancelled 24.6 H Absolute Nucleated RBC 0.150 H 0.270 H Nucleated RBC % (auto) 0.4 H 1.0 H Neutrophils % (Manual) 75 H Band Neutrophils % 19 H Lymphocytes % (Manual) 4 L Monocytes % (Manual) 1 L Basophils % (Manual) 1 Abs Neuts (Manual) 31.4 H Lymphocytes # (Manual) 1.3 Monocytes # (Manual) 0.3 Basophils # (Manual) 0.3 H Toxic Granulation PRESENT Platelet Estimate NORMAL Plt Morphology Comment NORMAL RBC Morphology NOTED Polychromasia 1+ (0-2) Macrocytosis 1+ (5-14) Ovalocytes 1+ (5-14) [place] Cells 1+ (0-2) Acanthocytes (Spur) 1+ (0-2) Smear Tech's Comments VERIFIED PT 96.5 H D INR 7.9 H* D VBG pH 7.27 L VBG pCO2 39 VBG pO2 37 VBG HCO3 18 L VBG O2 Saturation 54.0 VBG Base Excess -7.2 Sodium 141 142 Potassium 3.8 3.9 Chloride 107 107 Carbon Dioxide 20 L 16 L Anion Gap 18 23 H BUN 78 H 87 H Creatinine 3.37 H 3.78 H Estim Creat Clear Calc 29.0 25.8 Estimated GFR 18 16 Random Glucose 163 H 152 H Calcium 7.1 L 7.3 L Phosphorus 3.7 4.5 Magnesium 2.3 2.3 Total Bilirubin 1.5 H 1.7 H AST 36 38 H ALT 17 16 Alkaline Phosphatase 85 75 C-React Prot High Sens Total Protein 6.2 L 6.3 L Albumin 3.1 L 3.4 L Random Vancomycin 16.5 Blood Type Antibody Screen Microbiology Microbiology Results: Microbiology 11/24/23 19:45 Leg Left Gram Stain - Final 11/24/23 19:45 Leg Left Routine Culture - Preliminary Streptococcus pyogenes (Grp A) 11/24/23 19:45 Leg Right Gram Stain - Final 11/24/23 19:45 Leg Right Routine Culture - Preliminary Culture in progress. 11/23/23 09:40 Blood - Venous Blood Culture - Preliminary No growth after 48 hours. 11/23/23 03:33 Blood - Venous Blood Culture - Preliminary Streptococcus pyogenes (Grp A) Progress Note: A&P Assessment and plan (1) Acute pancreatitis: Status: Acute (2) Chronic ulcer of leg: Status: Acute (3) Hemorrhagic shock: Status: Acute (4) Acute kidney injury: Status: Acute (5) Coagulopathy: Status: Acute (6) Sepsis: Status: Acute Plan 73-year-old past medical history of moderate aortic stenosis, atrial fibrillation on Coumadin for anticoagulation presents to the with shock, drop in hemoglobin and along with INR > 26. Shock improved and is off Levophed since 11/24/2023. Has pancreatitis on the CT and left lower extremity cellulitis with rash is progressing up to mid thigh. He also has atrial fibrillation with RVR, cardioverted in the ED, not responding well to amiodarone. He had a large volume of bilious fluid aspiration leading to cardiac arrest needing emergent intubation, CPR with a down time of 7 minutes on 11/26/2023. Neuro: Acute encephalopathy: Secondary to metabolic encephalopathy CT brain did not show any acute intracranial changes On propofol for sedation and fentanyl for analgesia Cardio: on phenylephrine for vasopressor support TTE showed normal LV systolic function, severe aortic stenosis. Atrial fibrillation with RVR: Rate better controlled today, off diltiazem drip. Continues to be on amiodarone drip. As his NG tube is on for intermittent suction we would not switch amiodarone to p.o. but continue IV drip. He was cardioverted in the ED Metoprolol 25 mg b.i.d, oral diltiazem 60 mg b.i.d. held as NG tube is on intermittent suction Warfarin for anticoagulation with her 2 to coagulopathy, INR still high Acute hypoxemic respiratory failure: Intubated and on ventilator support for aspiration pneumonia Currently on pressure control ventilator 12/7.5 with a rate of 16, FiO2 50% We will continue him on ventilator support today Ventilator management bundle including head elevation, chlorhexidine mouthwash, daily spontaneous breathing trial, daily spontaneous awakening trials Acute pancreatitis: CT suggestive of acute pancreatitis, lipase slightly increased; validated by the repeat CT Had large volume vomitus possibly due to secondary to inflammation around the pancreas. Feeds held, NG tube for intermittent suction We will continue to closely monitor Acute blood loss anemia: His baseline hemoglobin is around 13, dropped to 5.7 the lowest, hemoglobin stable for the past 2 days So far he has received 3 units of PRBC and 6 units of FFP. transfuse to keep the hemoglobin above 7 grams/deciliter No clear source of bleeding, patient denies any bloody bowel movements although his stool for occult blood is positive. He had first bowel movement in past 5 days. Reticulocyte count slightly elevated but not significant enough 2 labeled hemolytic anemia, LDH slightly high 400s can be multifactorial, haptoglobin normal to slightly high; pending Eda test. CT abdomen concerning for hematoma in the right abductor muscles around the site of insertion of central line. No obvious hematoma externally, no hematoma noted on ultrasound thigh Acute kidney injury: baseline around 1.06; increased to 4.9 upon admission, trended down the next couple of days but now is increasing and is up to 3.78. We will give him Lasix 80 mg t.i.d. today as he is volume overloaded Possibly secondary to ATN from acute drop in hemoglobin and shock improving with resuscitation and now due to cardiac arrest Avoid nephrotoxic medications, closely monitor I's and O's Coagulopathy: Presented with INR greater than 26, patient on Coumadin Received 6 units of FFP, last INR is 7.9 We will get D-dimer and fibrinogen levels to rule out DIC Infectious disease: Patient is on broad-spectrum antibiotics vancomycin and Zosyn Possible source of infection is the lower extremity cellulitis 1 set of blood culture grew strep which might be coming from his leg, CT of the leg did not show any fluid collections or soft tissue air. CT abdomen showing dilated head of pancreas, and edema around the pancreas suggestive of pancreatitis. Lines: Right groin TLC No Gamino catheter Prophylaxis: SCDs, pantoprazole Quality Stroke Does the patient have a stroke diagnosis?: No VTE Prior VTE?: No VTE Risk Level:: Medical - moderate - high VTE Device Contraindication: Treatment Not Tolerated VTE Drug Contraindication: N/A - Med Ordered
[2023-11-27 09:30] LABS: Fibrinogen 616 MG/DL (259-690)
[2023-11-27 09:32] LABS: D Dimer High Sensitivity 2133 NG/ML
--- NOTE | 2023-11-27 10:11 | MHC.CLN ---
PT MAY REQUIRE TF FOR NUTRITION SUPPORT R/T PROLONGED NPO STATUS PT IS INTUBATED AND SEDATED DISCUSSED AT ROUNDS WITH MD PLAN TO REMAIN NPO TODAY-OGT ON SUCTION IF TF NEEDED; RECOMMEND PROMOTE AT MAX GOAL RATE 45ML/HR WITH 30ML PROSOURCE BID TO PROVIDE 1200KCALS (1896KCALS WITH SEDATION; 23KCALS/KG BASED ON IBW), 97.5G TOTAL PROTEIN (1.25G/KG), 906ML FREE WATER FROM FORMULA CAN ALSO GIVE 240ML FREE WATER FLUSHES Q 4 HRS IF NEEDED MONITOR TOLERANCE AND LYTES RD CAN BE REACHED VIA TIGER CONNECT DURING OFF HOURS SEE ALSO FULL CLINICAL NUTRITION ASSESSMENT
--- NOTE | 2023-11-27 10:26 | PM.PNGS ---
Subjective Subjective Date of Service: 11/27/23 Interval history: remains intubated no signficant changes with clinical condition Physical Exam Vital Signs: Vital Signs: Last Vital Signs Temp 99.9 F 11/27/23 09:59 Pulse 88 11/27/23 10:22 Resp 19 11/27/23 09:59 BP 113/68 11/27/23 10:22 Pulse Ox 95 11/27/23 09:59 O2 Del Method Mechanical Ventil ation 11/27/23 09:59 FiO2 55 11/27/23 09:59 BMI result Body Mass Index 44.7 Const: Other: intubated, sedated Resp: Other: on ventilator Cardio: Rate: tachycardic Back/Spine/Pelvis: Other: dressings in place, redness on left thigh not extending Objective Data Active Medications Albuterol Sulfate (Albuterol Sulfate (0.083%) 2.5 Mg/3 Ml Vial.Neb) 2.5 mg INHALE Q6H PRN PRN Reason: Wheezing Amiodarone HCl (Amiodarone Hcl 200 Mg Tablet) 400 mg PO TID [facility] Last Admin: 11/27/23 07:13 Dose: Not Given Documented By: CONCHIS Non-Admin Reason: pt npo - hold per Bisacodyl (Bisacodyl 5 Mg Tablet.) 10 mg PO DAILY PRN PRN Reason: Constipation Dicyclomine HCl (Dicyclomine Hcl 10 Mg Capsule) 10 mg PO TIDAC [facility] Last Admin: 11/27/23 07:12 Dose: Not Given Documented By: CONCHIS Non-Admin Reason: pt npo - hold per Diltiazem HCl (Diltiazem Hcl Sr 60 Mg Cap.Er.12h) 60 mg PO BID [facility]; Protocol Last Admin: 11/27/23 07:13 Dose: Not Given Documented By: CONCHIS Non-Admin Reason: pt npo - hold per Furosemide (Furosemide 100 Mg/10 Ml Vial) 80 mg IVPUSH Q8H [facility]; Protocol Last Admin: 11/27/23 10:21 Dose: 80 mg Documented By: CONCHIS Hydromorphone HCl (Hydromorphone Hcl 0.5 Mg/0.5 Ml Syringe) 0.5 mg IVPUSH Q4H PRN; Protocol PRN Reason: Pain, Severe (Pain Scale 7-10) Last Admin: 11/26/23 10:10 Dose: 0.5 mg Documented By: CONCHIS Piperacillin Sod/Tazobactam (Sod 4.5 gm/ Sodium Chloride) 100 mls @ 200 mls/hr IV Q12H [facility] Last Infusion: 11/27/23 03:49 Dose: Infused Documented By: KARAN Amiodarone HCl 900 mg/ Sodium (Chloride) 518 mls @ 17.267 mls/hr IVCONT .Q24H [facility]; Protocol Last Admin: 11/26/23 14:11 Dose: 0.5 mg/min, 17.27 mls/hr Documented By: CONCHIS Diltiazem HCl 125 mg/ Sodium (Chloride) 125 mls @ 0 mls/hr IVCONT .Q0M [facility]; Protocol Last Titration: 11/26/23 21:26 Dose: 0 mg/hr, 0 mls/hr Documented By: KARAN Propofol (Diprivan) 1,000 mg in 100 mls @ 0 mls/hr IVCONT .Q0M [facility]; Protocol Last Admin: 11/27/23 06:55 Dose: 30 mcg/kg/min, 26.37 mls/hr Documented By: KARAN Vancomycin HCl 750 mg/ Sodium (Chloride) 265 mls @ 265 mls/hr IV ONCE ONE Stop: 11/27/23 08:59 Phenylephrine HCl 100 mg/ (Sodium Chloride) 260 mls @ 0 mls/hr IVCONT .Q0M [facility]; Protocol Last Titration: 11/27/23 10:22 Dose: 3 mcg/kg/min, 68.56 mls/hr Documented By: CONCHIS Vancomycin HCl 750 mg/ Sodium (Chloride) 265 mls @ 265 mls/hr IV ONCE ONE Stop: 11/27/23 14:59 Ondansetron HCl (Ondansetron Hcl 4 Mg/2 Ml Vial) 4 mg IVPUSH Q6H PRN PRN Reason: Nausea and Vomiting Last Admin: 11/25/23 02:52 Dose: 4 mg Documented By: BROWN Oxycodone HCl (Oxycodone Hcl Er 10 Mg Tab.Er.12h) 10 mg PO BID [facility] Last Admin: 11/27/23 07:13 Dose: Not Given Documented By: CONCHIS Non-Admin Reason: pt npo - hold per Oxycodone HCl (Oxycodone Hcl Immed Release 5 Mg Tablet) 5 mg PO Q6H PRN PRN Reason: Pain, Severe (Pain Scale 7-10) Last Admin: 11/23/23 14:35 Dose: 5 mg Documented By: CONCHIS Pantoprazole Sodium (Pantoprazole Sodium 40 Mg/10 Ml Vial) 40 mg IVPUSH DAILY@0630 [facility] Last Admin: 11/27/23 05:52 Dose: 40 mg Documented By: KARAN Pharmacy Consult (Consult Rx Vancomycin Dosing) 1 each MISCELLANE DAILY PRN PRN Reason: Consult order Senna (Senna [place] Extract Oral Syrup 15 Ml Syrup) 15 ml PO BEDTIME [facility] Last Admin: 11/26/23 19:50 Dose: Not Given Documented By: KARAN Non-Admin Reason: NPO- hold per BRADEN Sodium Chloride (0.9 % Sodium Chloride Flush 3 Ml Syringe) 3 ml IVFLUSH QSHIFT [facility] Last Admin: 11/27/23 07:12 Dose: 3 ml Documented By: CONCHIS Sodium Chloride (Sodium Chloride 3 % Inhalation 15 Ml Vial.Neb) 4 ml INHALE Q4H PRN PRN Reason: Cough Labs 11/27/23 05:08 11/27/23 05:08 Labs: Laboratory Results - last 24 hr 11/25/23 11/26/23 11/26/23 06:02 12:31 13:37 MCV MCH MCHC RDW Plt Count MPV Immature Gran % (Auto) Neut % (Auto) Lymph % (Auto) [place] % (Auto) Eos % (Auto) Baso % (Auto) Lymph # (Auto) [place] # (Auto) Eos # (Auto) Baso # (Auto) Abs Immat Gran (auto) Absolute Neuts (auto) Absolute Nucleated RBC Nucleated RBC % (auto) Neutrophils % (Manual) Band Neutrophils % Lymphocytes % (Manual) Monocytes % (Manual) Basophils % (Manual) Abs Neuts (Manual) Lymphocytes # (Manual) Monocytes # (Manual) Basophils # (Manual) Toxic Granulation Platelet Estimate Plt Morphology Comment RBC Morphology Polychromasia Macrocytosis Ovalocytes Ramin Cells Acanthocytes (Spur) Smear Tech's Comments PT 135.9 H D INR 11.1 H* D Fibrinogen D-Dimer High Sensitivty VBG pH VBG pCO2 VBG pO2 VBG HCO3 VBG O2 Saturation VBG Base Excess Anion Gap Estim Creat Clear Calc Estimated GFR Random Glucose Calcium Phosphorus Magnesium Total Bilirubin AST ALT Alkaline Phosphatase C-React Prot High Sens >20.0 H Total Protein Albumin Random Vancomycin Blood Type O Positive Antibody Screen NEGATIVE 11/26/23 11/27/23 11/27/23 20:32 05:08 05:14 MCV 86.1 86.6 MCH 29.0 28.6 MCHC 33.6 33.0 RDW 17.0 H 17.0 H Plt Count 277 281 MPV 9.0 L 9.4 Immature Gran % (Auto) Cancelled 2.4 H Neut % (Auto) Cancelled 88.4 H Lymph % (Auto) Cancelled 6.0 L [place] % (Auto) Cancelled 2.9 Eos % (Auto) Cancelled 0.0 Baso % (Auto) Cancelled 0.3 Lymph # (Auto) Cancelled 1.7 [place] # (Auto) Cancelled 0.8 Eos # (Auto) Cancelled 0.0 Baso # (Auto) Cancelled 0.1 Abs Immat Gran (auto) Cancelled 0.66 H Absolute Neuts (auto) Cancelled 24.6 H Absolute Nucleated RBC 0.150 H 0.270 H Nucleated RBC % (auto) 0.4 H 1.0 H Neutrophils % (Manual) 75 H Band Neutrophils % 19 H Lymphocytes % (Manual) 4 L Monocytes % (Manual) 1 L Basophils % (Manual) 1 Abs Neuts (Manual) 31.4 H Lymphocytes # (Manual) 1.3 Monocytes # (Manual) 0.3 Basophils # (Manual) 0.3 H Toxic Granulation PRESENT Platelet Estimate NORMAL Plt Morphology Comment NORMAL RBC Morphology NOTED Polychromasia 1+ (0-2) Macrocytosis 1+ (5-14) Ovalocytes 1+ (5-14) Ramin Cells 1+ (0-2) Acanthocytes (Spur) 1+ (0-2) Smear Tech's Comments VERIFIED PT 96.5 H D INR 7.9 H* D Fibrinogen D-Dimer High Sensitivty VBG pH 7.27 L VBG pCO2 39 VBG pO2 37 VBG HCO3 18 L VBG O2 Saturation 54.0 VBG Base Excess -7.2 Anion Gap 18 23 H Estim Creat Clear Calc 29.0 25.8 Estimated GFR 18 16 Random Glucose 163 H 152 H Calcium 7.1 L 7.3 L Phosphorus 3.7 4.5 Magnesium 2.3 2.3 Total Bilirubin 1.5 H 1.7 H AST 36 38 H ALT 17 16 Alkaline Phosphatase 85 75 C-React Prot High Sens Total Protein 6.2 L 6.3 L Albumin 3.1 L 3.4 L Random Vancomycin 16.5 Blood Type Antibody Screen 11/27/23 09:13 MCV MCH MCHC RDW Plt Count MPV Immature Gran % (Auto) Neut % (Auto) Lymph % (Auto) [place] % (Auto) Eos % (Auto) Baso % (Auto) Lymph # (Auto) [place] # (Auto) Eos # (Auto) Baso # (Auto) Abs Immat Gran (auto) Absolute Neuts (auto) Absolute Nucleated RBC Nucleated RBC % (auto) Neutrophils % (Manual) Band Neutrophils % Lymphocytes % (Manual) Monocytes % (Manual) Basophils % (Manual) Abs Neuts (Manual) Lymphocytes # (Manual) Monocytes # (Manual) Basophils # (Manual) Toxic Granulation Platelet Estimate Plt Morphology Comment RBC Morphology Polychromasia Macrocytosis Ovalocytes Ramin Cells Acanthocytes (Spur) Smear Tech's Comments PT INR Fibrinogen 616 D-Dimer High Sensitivty 2133 VBG pH VBG pCO2 VBG pO2 VBG HCO3 VBG O2 Saturation VBG Base Excess Anion Gap Estim Creat Clear Calc Estimated GFR Random Glucose Calcium Phosphorus Magnesium Total Bilirubin AST ALT Alkaline Phosphatase C-React Prot High Sens Total Protein Albumin Random Vancomycin Blood Type Antibody Screen Microbiology Microbiology Results: Microbiology 11/24/23 19:45 Gram Stain - Final Leg Right Routine Culture - Preliminary Enterococcus/Streptococcus sp Gram negative divya 11/24/23 19:45 Gram Stain - Final Leg Left Routine Culture - Preliminary Streptococcus pyogenes (Grp A) Procedures Date of Service Date of Service: 11/27/23 Progress Note: A&P Assessment and plan (1) Chronic ulcer of leg: Status: Acute Assessment and Plan: CT done for left leg - no fluid collection/ abscess; no signs of necrotizing process thigh soft, even with edema no surgical intervention necessary at this time leg elevation wound care as per Wound Nurse rest of care as per ICU Time Spent With Patient Time: Total time managing care of this patient today ____ minutes. Quality Stroke Does the patient have a stroke diagnosis?: No VTE Prior VTE?: No VTE Risk Level:: Medical - moderate - high VTE Device Contraindication: Treatment Not Tolerated VTE Drug Contraindication: N/A - Med Ordered
[2023-11-27] MEDS: Phenylephrine HCL 100 MG in 0.9 % Sodium Chloride 250 ML 57.14 MG IVCONT ×3 (12:24→20:02)
--- NOTE | 2023-11-27 12:53 | MHC.CM.PN ---
Pt continues on ventilatory support following arrest on 11/25. Pt is on pressors and amniodorone infusions for BP control. Goals for the day are to keep sedated and reassess on 11/27 for possible sedation reduction and extubation. CM to make SNF referrals as it seems pt may require more intensive medical support at the time of d/c.
[2023-11-27] MEDS: vancomycin HCL 750 MG in 0.9 % Sodium Chloride 250 ML 265 MG IV (13:57)
[2023-11-27] MEDS: Amiodarone HCL 900 MG in 0.9 % Sodium Chloride 500 ML 17.27 MG IVCONT (14:02)
--- NOTE | 2023-11-27 15:47 | P.CNHO_ITS ---
Subjective - Subjective Chief complaint: Patient intubated in ICU Patient: new to practice Consult date: 11/27/23 Primary Care Provider: RIKKI Alonzo HPI - Consult Narrative Reason for consult: Elevated INR Narrative: Andre Tabor is a 73 year old male with past medical history significant for atrial fibrillation, chronic alcoholism, on chronic anticoagulation who presented with hypotension and septic shock. He was diagnosed with acute pancreatitis for which he required pressor support and fluid resuscitation. He was found to be in acute kidney injury and his INR was greater than 26. His hemoglobin was found to be 8.4 gram/dL, dropped to 5.7 gram/dL after fluid resuscitation. He was started on antibiotics, Zosyn and vancomycin along with pressors. On 11/26/2023 he aspirated on vomitus and went into cardiac arrest requiring emergent intubation and CPR for 7 minutes. Patient received 3 units PRBC and 7 units FFP transfusion since his admission on 11/23/2023. I was consulted because his INR is still supratherapeutic, currently 7.9. Multiple imaging studies did not reveal any hematoma either in his left thigh which is swollen or intra-abdominal region. He is being treated for cellulitis of the left thigh. Review of Systems - Neurologic Denies abnormal gait, Denies behavioral changes, Reports headache(s), Reports weakness PMFSH Medical History: Medical History (Last Updated 11/25/23 @ 09:30 by John Chavis MD) Abscess of knee, left Anxiety Atherosclerosis of [place] coronary artery of [place] heart with angina pectoris Atrial fibrillation Chronic ulcer of leg Dyslipidemia HTN (hypertension) Moderate aortic stenosis Persistent atrial fibrillation Reactive depression Sleep apnea Family History: Family History (Last Reviewed 11/23/23 @ 06:16 by Elisa Walsh MD) Other Brain cancer Surgical History: Surgical History (Last Reviewed 11/23/23 @ 06:16 by Elisa Walsh MD) History of evacuation of hematoma Onset Date: ~05/2015 History of incision and drainage History of revision of total replacement of left knee joint Onset Date: ~04/2016 History of total left knee replacement Onset Date: ~11/2015 History of total right knee replacement (TKR) Onset Date: ~04/2015 Hx of carpal tunnel repair Status post ablation of incompetent vein using laser Onset Date: ~01/2022 Social History: Social History (Last Reviewed 11/23/23 @ 06:16 by Elisa Walsh MD) Living Situation History: Household Members: Family Housing: House Do you presently have visiting nurse or other home services: Yes Do you presently have visiting nurse or other home services comment: [facility] Alcohol History Details: 1. How often do you have a drink containing alcohol?: b. Monthly or less 2. How many drinks containing alcohol do you have on a typical day when you are drinking?: a. 1 or 2 3. How often do you have six or more drinks on one occasion?: a. Never AUDIT-C Alcohol total score: 1 Last drink: Days (ago) Last Drank Other:: Over a month ago per patient Currently Displaying Signs/Symptoms of Alcohol Withdrawal: No Tobacco History: Patient Tobacco Use Status: Former Tobacco user Years Smoked: 45+/- Smoked in Last 30 Days: No Smoke Quit Date: 7 years e-Cigarette/Vaping Use: Never Used Second Hand Smoke Exposure: No Substance Use History: Use of substances other than those prescribed or required for medical reasons : No Substance Use Type: Marijuana Currently Displaying Signs/Symptoms of Drug Intoxication Withdrawal: No Domestic Abuse History: Have you been hit, kicked, punched, or otherwise hurt by someone within the past year? If so, by whom?: No Do you feel safe in your current relationship?: No Is there a partner from a previous relationship who is making you feel unsafe now?: No Are you made to feel afraid or neglected: No Healthcare Practices: Spiritual Healthcare Practices: none per patient Evangelical Healthcare Practices: none per patient Cultural Healthcare Practices: none per patient Advance Directives: Advance Directives: Yes Advance Directives on File: Yes Advance Directives Date on File: 03/05/22 Homicidal Assessment: Do you have a plan to hurt others: No Plan Nutrition Assessment: Recently lost weight without trying: Yes How much weight loss: 14-23 pounds Eating poorly because of decreased appetite: Yes Nutrition screen score: 5 Nutrition Risks: No Nutritional Risk Poor oral hygiene: No Occupation Assessmet: service: No Current occupational status: previously employed Current occupational status: retired 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 Current occupational exposures/hazards: No Home Medications and Allergies Current Medications: Current Medications Albuterol Sulfate (Albuterol Sulfate (0.083%) 2.5 Mg/3 Ml Vial.Neb) 2.5 mg INHALE Q6H PRN PRN Reason: Wheezing Amiodarone HCl (Amiodarone Hcl 200 Mg Tablet) 400 mg PO TID [facility] Last Admin: 11/27/23 11:18 Dose: Not Given Bisacodyl (Bisacodyl 5 Mg Tablet.Dr) 10 mg PO DAILY PRN PRN Reason: Constipation Dicyclomine HCl (Dicyclomine Hcl 10 Mg Capsule) 10 mg PO TIDAC [facility] Last Admin: 11/27/23 11:19 Dose: Not Given Diltiazem HCl (Diltiazem Hcl Sr 60 Mg Cap.Er.12h) 60 mg PO BID [facility]; Protocol Last Admin: 11/27/23 07:13 Dose: Not Given Furosemide (Furosemide 100 Mg/10 Ml Vial) 80 mg IVPUSH Q8H [facility]; Protocol Last Admin: 11/27/23 10:21 Dose: 80 mg Hydromorphone HCl (Hydromorphone Hcl 0.5 Mg/0.5 Ml Syringe) 0.5 mg IVPUSH Q4H [facility]; Protocol PRN Reason: Pain, Severe (Pain Scale 7-10) Last Admin: 11/26/23 10:10 Dose: 0.5 mg Piperacillin Sod/Tazobactam (Sod 4.5 gm/ Sodium Chloride) 100 mls @ 200 mls/hr IV Q12H [facility] Last Infusion: 11/27/23 15:26 Dose: Infused Amiodarone HCl 900 mg/ Sodium (Chloride) 518 mls @ 17.267 mls/hr IVCONT .Q24H [facility]; Protocol Last Admin: 11/27/23 14:02 Dose: 0.5 mg/min, 17.27 mls/hr Diltiazem HCl 125 mg/ Sodium (Chloride) 125 mls @ 0 mls/hr IVCONT .Q0M [facility]; Protocol Last Titration: 11/26/23 21:26 Dose: 0 mg/hr, 0 mls/hr Propofol (Diprivan) 1,000 mg in 100 mls @ 0 mls/hr IVCONT .Q0M [facility]; Protocol Last Admin: 11/27/23 13:50 Dose: 30 mcg/kg/min, 26.37 mls/hr Vancomycin HCl 750 mg/ Sodium (Chloride) 265 mls @ 265 mls/hr IV ONCE ONE Stop: 11/27/23 08:59 Phenylephrine HCl 100 mg/ (Sodium Chloride) 260 mls @ 0 mls/hr IVCONT .Q0M [facility]; Protocol Last Admin: 11/27/23 12:24 Dose: 2.5 mcg/kg/min, 57.14 mls/hr Ondansetron HCl (Ondansetron Hcl 4 Mg/2 Ml Vial) 4 mg IVPUSH Q6H PRN PRN Reason: Nausea and Vomiting Last Admin: 11/25/23 02:52 Dose: 4 mg Oxycodone HCl (Oxycodone Hcl Er 10 Mg Tab.Er.12h) 10 mg PO BID [facility] Last Admin: 11/27/23 07:13 Dose: Not Given Oxycodone HCl (Oxycodone Hcl Immed Release 5 Mg Tablet) 5 mg PO Q6H PRN PRN Reason: Pain, Severe (Pain Scale 7-10) Last Admin: 11/23/23 14:35 Dose: 5 mg Pantoprazole Sodium (Pantoprazole Sodium 40 Mg/10 Ml Vial) 40 mg IVPUSH DAILY@0630 [facility] Last Admin: 11/27/23 05:52 Dose: 40 mg Pharmacy Consult (Consult Rx Vancomycin Dosing) 1 each MISCELLANE DAILY PRN PRN Reason: Consult order Senna (Senna [place] Extract Oral Syrup 15 Ml Syrup) 15 ml PO BEDTIME [facility] Last Admin: 11/26/23 19:50 Dose: Not Given Sodium Chloride (0.9 % Sodium Chloride Flush 3 Ml Syringe) 3 ml IVFLUSH QSHIFT [facility] Last Admin: 11/27/23 15:28 Dose: 3 ml Sodium Chloride (Sodium Chloride 3 % Inhalation 15 Ml Vial.Neb) 4 ml INHALE Q4H PRN PRN Reason: Cough Home Medications ?Medication ?Instructions ?Recorded ?Confirmed ?Type calcium carbonate (Tums) 1,000 mg PO BID PRN prior to 11/23/23 11/23/23 History ibuprofen ibuprofen 200 mg tablet 400 mg PO BID 11/23/23 11/23/23 History melatonin 10 mg disintegrating 10 mg PO BEDTIME 11/23/23 11/23/23 History tablet Allergies Allergy/AdvReac Type Severity Reaction Status Date / Time No Known Allergies Allergy Verified 11/23/23 03:43 [No Known Allergies*] Physical Exam Vital signs: Vital Signs Temp 100.2 F 11/27/23 15:00 Pulse 82 11/27/23 15:00 Resp 22 H 11/27/23 15:00 BP 97/59 L 11/27/23 15:00 Pulse Ox 95 11/27/23 15:00 O2 Del Method Mechanical Ventilation 11/27/23 15:00 FiO2 40 11/27/23 15:28 Intake & Output 11/26/23 11/27/23 11/27/23 18:59 06:59 18:59 Intake Total 2989.060 / 5260.521 2271.461 / 5260.521 1464.252 / 1464.252 Output Total 3400 / 4075 635 / 4075 775 / 775 Balance -410.940 / 7307.300 3029.461 / 1185.521 689.252 / 689.252 Urine Output (Average ml/kg/hr) 0.09 0.08 0.44 Intake: Intake (Blood Product) Amount 284 / 284 Thawed Plasma (E2720) Unit 284 / 284 [id number] Intake, IV Amount 2705.060 / 4976.521 2271.461 / 4976.521 1464.252 / 1464.252 0.9 % Sodium Chloride 100 ml @ 100 / 100 100 mls/hr IV ONCE ONE Rx#: [id number] Albumin Human 25 % 100 ml @ 100 200 / 200 mls/hr IV Q1H [facility] Rx#: [id number] Piperacillin Sodium/Tazobactam 100 / 200 100 / 200 100 / 100 4.5 gm In 0.9 % Sodium Chloride 100 ml @ 200 mls/hr IV Q12H [facility] Rx#:[id number] vancomycin HCL 750 mg In 0.9 % 265 / 265 265 / 265 Sodium Chloride 250 ml @ 265 mls/hr IV ONCE ONE Rx#: [id number] Amiodarone HCL 900 mg In 0.9 % 436.931 / 436.931 411.89 / 411.89 Sodium Chloride 500 ml @ 0.5 MG /MIN 17.267 mls/hr IVCONT .Q24H [facility] Rx#:[id number] Phenylephrine HCL 20 mg In 0.9 1440.870 / 2373.981 933.111 / 2373.981 % Sodium Chloride 250 ml @ Per Protocol IVCONT .Q0M [facility] Rx#: [id number] Phenylephrine HCL 100 mg In 0.9 662.772 / 662.772 487.362 / 487.362 % Sodium Chloride 250 ml @ Per Protocol IVCONT .Q0M [facility] Rx#: [id number] dilTIAZem HCL 125 mg In 0.9 % 68.499 / 101.999 33.5 / 101.999 Sodium Chloride 100 ml @ Per Protocol IVCONT .Q0M [facility] Rx#: [id number] propofoL 1,000 mg In 100 ml @ 293.760 / 635.838 342.078 / 635.838 200 / 200 Per Protocol IVCONT .Q0M [facility] Rx #:[id number] Output: Output, Urine Amount 100 / 100 Output, Emesis Amount 400 / 400 Output, Urine Amount (Catheter) 50 / 225 135 / 225 775 / 775 Urethral 50 / 225 135 / 225 775 / 775 Output, Gastric Drainage Amount 2850 / 3350 500 / 3350 Oral 2850 / 3350 500 / 3350 Other: NPO Yes Urine Color Yellow Last Bowel Movement 11/25/23 11/25/23 11/26/23 Emesis Color Bile Weight 145.5 kg 145.5 kg [place] Weight in Grams 557001 Weight 145.5 kg Narrative: Patient is intubated and sedated. - Constitutional Present: obese - Routine Respiratory Exam Absent: accessory muscle use - Routine Cardiovascular Exam Cardiovascular: Present: S1, S2 - Routine Extremities Exam Present: pedal edema - Routine Skin Exam Present: lesions Comments: Left knee, distal thigh and proximal leg erythematous and swollen. Hem/Onc Consult Result - Labs CBC & Chem 7: 11/27/23 05:08 11/27/23 05:08 Labs: Short CBC 11/26/23 11/27/23 Range/Units 20:32 05:08 WBC 33.4 H* 27.8 H (4.8-10.8) X10*3/uL Hgb 7.5 L 7.5 L (14.0-18.0) g/dl Hct 22.3 L 22.7 L (42.0-52.0) % Plt Count 277 281 (160-400) X10*3/uL BMP 11/26/23 11/27/23 20:32 05:08 Sodium 141 142 Potassium 3.8 3.9 Chloride 107 107 Carbon Dioxide 20 L 16 L BUN 78 H 87 H Creatinine 3.37 H 3.78 H Calcium 7.1 L 7.3 L Liver Function 11/26/23 11/27/23 Range/Units 20:32 05:08 Total Bilirubin 1.5 H 1.7 H (0.0-1.0) mg/dL AST 36 38 H (5-37) U/L ALT 17 16 (0-40) U/L Alkaline Phosphatase 85 75 (39-117) U/L Albumin 3.1 L 3.4 L (3.5-5.0) g/dL Assessment and Plan Patient Active problem list reviewed?: Yes (1) Coagulopathy Status: Acute Assessment and plan: 1. This is a 73-year-old male admitted to ICU with probable septic shock, acute pancreatitis, acute kidney injury, acute hypoxemic respiratory failure and found to be coagulopathic with supratherapeutic INR. He was on warfarin for atrial fibrillation which was discontinued since his admission on 11/23/2023. He received multiple units of FFP, 6 units on 11/23/2023, 1 unit on 11/25/2023 and another on 11/26/2023. He got 3 units PRBC for a hemoglobin of 5.7 gram/dL. His hemoglobin improved to 8.3 gram/dL on 11/25/2023 but dropped again after cardiac arrest on 11/26/2023 and worsening kidney function. He has no signs of acute bleeding. He probably had GI bleeding before arrival to the hospital. According to [facility] nurse, he has not had any significant problems in the past with his INRs. Rate of decline of INR following warfarin cessation depends on INR value prior to warfarin withdrawal as well as other factors such as age, weight of patient and comorbidities. Warfarin elimination could be influenced by polymorphisms in the CYP2C9 gene. Medications such as Zosyn and vancomycin can also potentiate effect of warfarin leading to slower decline in INR. His multiple comorbidities including liver disease, vitamin K deficiency, renal insufficiency and shock would influence warfarin metabolism resulting in slower elimination and therefore more time for INR to come down. Since he is not bleeding and his H&H is stable, I would continue to closely monitor at this time. There is no evidence of DIC, his platelet counts are normal. Thank you for the consult, will follow with you. - Time Spent With Patient Time Spent with Patient (in minutes): 10
[2023-11-28] VITALS (41 sets, daily range): BP systolic 88–112; BP diastolic 52–73; PULSE 90–111; RESP 17–101; TEMP 34.4–38.7; O2SAT 92–98; BMI 44.4
[2023-11-28] MEDS: Phenylephrine HCL 100 MG in 0.9 % Sodium Chloride 250 ML 45.71 MG IVCONT (00:03)
[2023-11-28] MEDS: HYDROmorphone HCl 0.5 MG/0.5 ML SYRINGE IVPUSH (01:20)
[2023-11-28] MEDS: propofoL 1,000 MG/100 ML VIAL 26.37 MG IVCONT ×6 (02:28→20:18)
[2023-11-28] MEDS: Furosemide 100 MG/10 ML VIAL 80 MG IVPUSH ×3 (03:19→18:20)
[2023-11-28] MEDS: Piperacillin Sodium/Tazobactam 4.5 GM in 0.9 % Sodium Chloride 100 ML IV ×2 (03:19→14:29)
[2023-11-28] MEDS: Phenylephrine HCL 100 MG in 0.9 % Sodium Chloride 250 ML 34.28 MG IVCONT ×3 (05:06→20:16)
[2023-11-28 05:19] LABS: VBG HCO3 23 mmol/L (22-26); VBG pCO2 36 mmHg; VBG pO2 42 mmHg
[2023-11-28 05:23] LABS: Venous Blood Gas Refer to POC result
[2023-11-28 06:36] LABS: Basophils Absolute Auto 0.1 X10*3/uL (0.0-0.2); Basophils Percent Auto 0.3 % (0-2); Eosinophils Absolute Auto 0.1 X10*3/uL (0.0-0.4); Eosinophils Percent Auto 0.4 % (0-4); Hematocrit 23.3 % (42.0-52.0); Hemoglobin 7.7 g/dl (14.0-18.0); Imm Gran Abs Auto 0.92 X10*3/uL (0.00-0.03); Imm Gran Pct Auto 3.7 % (0.0-0.4); Lymphocytes Absolute Auto 1.9 X10*3/uL (1.2-4.9); Lymphocytes Percent Auto 7.7 % (20-40); MANUAL DIFF FLAG SCAN; Mean Corpuscular Hemoglobin 28.3 pg (27.0-33.0); Mean Corpuscular Volume 85.7 fL (80.0-98.0); Monocytes Absolute Auto 0.5 X10*3/uL (0.1-1.2); Neutrophils Absolute Auto 21.7 x10*3/uL (2.0-8.3); Neutrophils Percent Auto 85.9 % (45-73); Platelet Count 270 X10*3/uL (160-400); Red Blood Count 2.72 X10*6/uL (4.60-5.80); Red Cell Distribution Width 16.8 % (11.0-16.0); SCAN SMEAR FLAG 1; White Blood Count 25.2 X10*3/uL (4.8-10.8)
[2023-11-28] MEDS: Pantoprazole Sodium 40 MG/10 ML VIAL IVPUSH (06:37)
[2023-11-28 06:47] LABS: NRBC Pct Auto 1.3 /100WBC (0.0-0.2)
[2023-11-28 06:53] LABS: Alanine Aminotransferase 94 U/L (0-40); Albumin Level 3.1 g/dL (3.5-5.0); Alkaline Phosphatase 106 U/L (39-117); Anion Gap 21 (12-20); Aspartate Amino Transferase 458 U/L (5-37); Bilirubin Total 1.7 mg/dL (0.0-1.0); Blood Urea Nitrogen 94 mg/dL (9-16); Calcium 7.3 mg/dL (8.4-10.2); Carbon Dioxide 18 mmol/L (22-29); Chloride 109 mmol/L (96-108); Creatinine Clr Calc Pharmacy 30.1; Estimated Glomerular Filt Rate 19; Glucose Random 140 mg/dL (60-115); Magnesium 2.2 mg/dL (1.6-2.6); Phosphorus 4.2 mg/dL (2.7-4.5); Potassium 3.3 mmol/L (3.3-5.1); Sodium 145 mmol/L (135-145); Total Protein 6.1 g/dL (6.5-8.0)
[2023-11-28 07:18] LABS: INTERNATIONAL NORM RATIO 3.4 (0.9-1.1); Prothrombin Time 41.1 SEC (11.1-13.3)
[2023-11-28 07:31] LABS: SLIDE REVIEW VERIFIED
[2023-11-28] MEDS: 0.9 % Sodium Chloride Flush 3 ML SYRINGE IVFLUSH ×4 (08:43→23:52)
--- NOTE | 2023-11-28 08:50 | P.PNCC_ITS ---
Subjective Subjective Date of Service: 11/28/23 Interval History: Remains on ventilator support this morning On phenylephrine for vasopressor support Heart rate better controlled on amiodarone drip Critical Care Time (minutes): 42 Physical Exam 2 Vital Signs: Vital Signs: Last Vital Signs Temp 100.6 F H 11/28/23 08:00 Pulse 97 11/28/23 08:00 Resp 27 H 11/28/23 08:00 BP 98/66 11/28/23 08:00 Pulse Ox 94 11/28/23 08:00 O2 Del Method Mechanical Ventil ation 11/28/23 08:00 FiO2 40 11/28/23 08:07 BMI result Body Mass Index 44.4 General: acute distress, ill appearing and tired appearing Nutritional Appearance: well nourished and overweight Eyes: appearance normal, both eyes and all related structures; Alignment and Position: alignment normal and position normal Neck: No lymphadenopathy, no thyromegaly Resp: bilateral air entry equal, occasional added sounds present more in the lung bases bilaterally Cardio: Irregularly irregular rhythm; Heart sounds: S1 normal heart sound present and S2 normal heart sound present GI: soft, nontender, no guarding, no hepatosplenomegaly : bladder normal to inspection, bladder normal to palpation, no renal angle tenderness Skin: Redness and erythema of the left leg until high thigh Neuro: oriented to person, oriented to place, oriented to time and moves all extremities Objective Data Labs 11/28/23 05:09 11/28/23 05:09 Labs: Laboratory Results - last 24 hr 11/27/23 11/28/23 11/28/23 09:13 05:09 05:10 WBC 25.2 H RBC 2.72 L Hgb 7.7 L Hct 23.3 L MCV 85.7 MCH 28.3 MCHC 33.0 RDW 16.8 H Plt Count 270 MPV 10.0 Immature Gran % (Auto) 3.7 H Neut % (Auto) 85.9 H Lymph % (Auto) 7.7 L Woodson % (Auto) 2.0 Eos % (Auto) 0.4 Baso % (Auto) 0.3 Lymph # (Auto) 1.9 Woodson # (Auto) 0.5 Eos # (Auto) 0.1 Baso # (Auto) 0.1 Abs Immat Gran (auto) 0.92 H Absolute Neuts (auto) 21.7 H Absolute Nucleated RBC 0.330 H Nucleated RBC % (auto) 1.3 H Smear Tech's Comments VERIFIED PT 41.1 H D INR 3.4 H D Fibrinogen 616 D-Dimer High Sensitivty 2133 VBG pH 7.40 VBG pCO2 36 VBG pO2 42 VBG HCO3 23 VBG O2 Saturation 67.0 VBG Base Excess -1.0 Sodium 145 Potassium 3.3 Chloride 109 H Carbon Dioxide 18 L Anion Gap 21 H BUN 94 H Creatinine 3.24 H Estim Creat Clear Calc 30.1 Estimated GFR 19 Random Glucose 140 H Calcium 7.3 L Phosphorus 4.2 Magnesium 2.2 Total Bilirubin 1.7 H AST 458 H ALT 94 H Alkaline Phosphatase 106 Total Protein 6.1 L Albumin 3.1 L Microbiology Microbiology Results: Microbiology 11/24/23 19:45 Leg Right Gram Stain - Final 11/24/23 19:45 Leg Right Routine Culture - Preliminary Enterococcus faecalis Acinetobacter baumannii Stenotrophomonas maltophilia 11/24/23 19:45 Leg Left Gram Stain - Final 11/24/23 19:45 Leg Left Routine Culture - Preliminary Streptococcus pyogenes (Grp A) Serratia marcescens Stenotrophomonas maltophilia 11/23/23 09:40 Blood - Venous Blood Culture - Preliminary No growth after 48 hours. 11/23/23 03:33 Blood - Venous Blood Culture - Preliminary Streptococcus pyogenes (Grp A) Progress Note: A&P Assessment and plan (1) Acute pancreatitis: Status: Acute (2) Chronic ulcer of leg: Status: Acute (3) Acute kidney injury: Status: Acute (4) Coagulopathy: Status: Acute (5) Sepsis: Status: Acute (6) Acute GI bleeding: Status: Acute (7) Atrial fibrillation: Status: Chronic Plan 73-year-old past medical history of moderate aortic stenosis, atrial fibrillation on Coumadin for anticoagulation presents to the with shock, drop in hemoglobin and along with INR > 26. Shock improved and is off Levophed since 11/24/2023. Has pancreatitis on the CT and left lower extremity cellulitis with rash is progressing up to mid thigh. He also has atrial fibrillation with RVR, cardioverted in the ED, not responding well to amiodarone. He had a large volume of bilious fluid aspiration leading to cardiac arrest needing emergent intubation, CPR with a down time of 7 minutes on 11/26/2023. Neuro: Acute encephalopathy: Secondary to metabolic encephalopathy CT brain did not show any acute intracranial changes On propofol for sedation and fentanyl for analgesia, we will slowly wean propofol to wean him off the ventilator Cardio: on phenylephrine for vasopressor support, titrate to keep the map above 65 mm Hg TTE showed normal LV systolic function, severe aortic stenosis. Atrial fibrillation with RVR: Rate controlled, continue amiodarone drip. As his NG tube is on for intermittent suction we would not switch amiodarone to p.o. but continue IV drip. He was cardioverted in the ED Metoprolol 25 mg b.i.d, oral diltiazem 60 mg b.i.d. held as NG tube is on intermittent suction Warfarin for anticoagulation with her 2 to coagulopathy, INR still high Acute hypoxemic respiratory failure: Intubated and on ventilator support for aspiration pneumonia Currently on pressure control ventilator 06/18.5 with a rate of 16, FiO2 50% If he does very well we will try him on pressor support Ventilator management bundle including head elevation, chlorhexidine mouthwash, daily spontaneous breathing trial, daily spontaneous awakening trials Acute pancreatitis: CT suggestive of acute pancreatitis, lipase slightly increased; validated by the repeat CT Had large volume vomitus possibly due to secondary to inflammation around the pancreas. Feeds held, NG tube for intermittent suction We will continue to closely monitor Acute blood loss anemia: His baseline hemoglobin is around 13, dropped to 5.7 the lowest, hemoglobin stable for the past 3 days, hemoglobin 7.7 this morning So far he has received 3 units of PRBC and 6 units of FFP. transfuse to keep the hemoglobin above 7 grams/deciliter No clear source of bleeding, patient denies any bloody bowel movements although his stool for occult blood is positive. No significant bowel movements suggesting GI bleed, in fact his constipated Reticulocyte count slightly elevated but not significant enough 2 labeled hemolytic anemia, LDH slightly high 400s can be multifactorial, haptoglobin normal to slightly high; normal Eda test. CT abdomen concerning for hematoma in the right abductor muscles around the site of insertion of central line. No obvious hematoma externally, no hematoma noted on ultrasound thigh Acute kidney injury: baseline around 1.06; increased to 4.9 upon admission, 3.78 yesterday, down to 3.24 today. Continue Lasix 80 mg t.i.d. today as he is volume overloaded Possibly secondary to ATN from acute drop in hemoglobin and shock improving with resuscitation and now due to cardiac arrest Avoid nephrotoxic medications, closely monitor I's and O's Coagulopathy: Presented with INR greater than 26, patient was on Coumadin for atrial fibrillation with RVR Received 6 units of FFP, INR this morning 3.4 No evidence of DIC, fibrinogen levels around 400 Infectious disease: Patient is on broad-spectrum antibiotics vancomycin and Zosyn lower extremity cellulitis: Cultures growing multiple organisms in both the legs including Enterobacter, Acinetobacter and stenotrophomonas, CT of the leg did not show any fluid collections or soft tissue air. We will add Flagyl to cover stenotrophomonas CT abdomen showing dilated head of pancreas, and edema around the pancreas suggestive of pancreatitis. Endocrine: Blood sugars well controlled Lines: Right femoral TLC placed on admission Prophylaxis: SCD, pantoprazole Quality Stroke Does the patient have a stroke diagnosis?: No VTE Prior VTE?: No VTE Risk Level:: Medical - moderate - high VTE Device Contraindication: Treatment Not Tolerated VTE Drug Contraindication: N/A - Med Ordered
[2023-11-28] MEDS: metroNIDAZOLE/NS 500 MG/100 ML PIGGYBACK 100 MG IV ×2 (09:37→16:58)
[2023-11-28] MEDS: Collagenase Clostridium Hist. 30 GM TUBE 1 APPL TOPICAL (12:47)
[2023-11-28 13:00] LABS: Vancomycin Random 16.7 mcg/mL (15-20)
[2023-11-28] MEDS: Amiodarone HCL 900 MG in 0.9 % Sodium Chloride 500 ML 17.27 MG IVCONT (14:11)
[2023-11-28] MEDS: Chlorhexidine Gluc Oral Rinse 15 ML MOUTHWASH BUCCAL ×2 (14:30→20:29)
--- NOTE | 2023-11-28 15:22 | PM.HEMONCPN ---
Medical Summary - Medical Summary Date of Service: 11/28/23 Chief complaint: coagulopathy Primary Care Provider: Reji Delgado [facility] Interval History Interval history: Andre Tabor is a 73 year old male with past medical history significant for atrial fibrillation, chronic alcoholism, on chronic anticoagulation who presented with hypotension and septic shock. He was diagnosed with acute pancreatitis for which he required pressor support and fluid resuscitation. He was found to be in acute kidney injury and his INR was greater than 26. His hemoglobin was found to be 8.4 gram/dL, dropped to 5.7 gram/dL after fluid resuscitation. He was started on antibiotics, Zosyn and vancomycin along with pressors. On 11/26/2023 he aspirated on vomitus and went into cardiac arrest requiring emergent intubation and CPR for 7 minutes. Patient received 3 units PRBC and 7 units FFP transfusion since his admission on 11/23/2023. I am covering for Dr. Burgos. He remains in ICU,=. The INR has improved to 3.4. I agree with current theerapy, Review of Systems - Neurologic Reports headache(s), Reports weakness, Denies abnormal gait, Denies behavioral changes [facility] Medical History: Medical History (Last Updated 11/25/23 @ 09:30 by John Chavis MD) Abscess of knee, left Anxiety Atherosclerosis of [place] coronary artery of [place] heart with angina pectoris Atrial fibrillation Chronic ulcer of leg Dyslipidemia HTN (hypertension) Moderate aortic stenosis Persistent atrial fibrillation Reactive depression Sleep apnea Family History: Family History (Last Reviewed 11/23/23 @ 06:16 by Elisa Walsh MD) Other Brain cancer Surgical History: Surgical History (Last Reviewed 11/23/23 @ 06:16 by Elisa Walsh MD) History of evacuation of hematoma Onset Date: ~05/2015 History of incision and drainage History of revision of total replacement of left knee joint Onset Date: ~04/2016 History of total left knee replacement Onset Date: ~11/2015 History of total right knee replacement (TKR) Onset Date: ~04/2015 Hx of carpal tunnel repair Status post ablation of incompetent vein using laser Onset Date: ~01/2022 Social History: Social History (Last Reviewed 11/23/23 @ 06:16 by Elisa Walsh MD) Living Situation History: Household Members: Family Housing: House Do you presently have visiting nurse or other home services: Yes Do you presently have visiting nurse or other home services comment: [facility] Alcohol History Details: 1. How often do you have a drink containing alcohol?: b. Monthly or less 2. How many drinks containing alcohol do you have on a typical day when you are drinking?: a. 1 or 2 3. How often do you have six or more drinks on one occasion?: a. Never AUDIT-C Alcohol total score: 1 Last drink: Days (ago) Last Drank Other:: Over a month ago per patient Currently Displaying Signs/Symptoms of Alcohol Withdrawal: No Tobacco History: Patient Tobacco Use Status: Former Tobacco user Years Smoked: 45+/- Smoked in Last 30 Days: No Smoke Quit Date: 7 years e-Cigarette/Vaping Use: Never Used Second Hand Smoke Exposure: No Substance Use History: Use of substances other than those prescribed or required for medical reasons: No Substance Use Type: Marijuana Currently Displaying Signs/Symptoms of Drug Intoxication Withdrawal: No Domestic Abuse History: Have you been hit, kicked, punched, or otherwise hurt by someone within the past year? If so, by whom?: No Do you feel safe in your current relationship?: No Is there a partner from a previous relationship who is making you feel unsafe now?: No Are you made to feel afraid or neglected: No Healthcare Practices: Spiritual Healthcare Practices: none per patient Buddhism Healthcare Practices: none per patient Cultural Healthcare Practices: none per patient Advance Directives: Advance Directives: Yes Advance Directives on File: Yes Advance Directives Date on File: 03/05/22 Homicidal Assessment: Do you have a plan to hurt others: No Plan Nutrition Assessment: Recently lost weight without trying: Yes How much weight loss: 14-23 pounds Eating poorly because of decreased appetite: Yes Nutrition screen score: 5 Nutrition Risks: No Nutritional Risk Poor oral hygiene: No Occupation Assessmet: service: No Current occupational status: previously employed Current occupational status: retired 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 Current occupational exposures/hazards: No Home Medications and Allergies Current Medications: Current Medications Albuterol Sulfate (Albuterol Sulfate (0.083%) 2.5 Mg/3 Ml Vial.Neb) 2.5 mg INHALE Q6H PRN PRN Reason: Wheezing Amiodarone HCl (Amiodarone Hcl 200 Mg Tablet) 400 mg PO TID [facility] Last Admin: 11/28/23 14:30 Dose: Not Given Bisacodyl (Bisacodyl 5 Mg Tablet.Dr) 10 mg PO DAILY PRN PRN Reason: Constipation Chlorhexidine Gluconate (Chlorhexidine Gluc Oral Rinse 15 Ml Mouthwash) 15 ml BUCCAL TID [facility] Last Admin: 11/28/23 14:30 Dose: 15 ml Collagenase (Collagenase Clostridium Hist. 30 Gm Tube) 1 appl TOPICAL DAILY [facility]; Protocol Last Admin: 11/28/23 12:47 Dose: 1 appl Dicyclomine HCl (Dicyclomine Hcl 10 Mg Capsule) 10 mg PO TIDAC [facility] Last Admin: 11/28/23 11:17 Dose: Not Given Diltiazem HCl (Diltiazem Hcl Sr 60 Mg Cap.Er.12h) 60 mg PO BID [facility]; Protocol Last Admin: 11/28/23 08:06 Dose: Not Given Furosemide (Furosemide 100 Mg/10 Ml Vial) 80 mg IVPUSH Q8H [facility]; Protocol Last Admin: 11/28/23 11:06 Dose: 80 mg Hydromorphone HCl (Hydromorphone Hcl 0.5 Mg/0.5 Ml Syringe) 0.5 mg IVPUSH Q4H PRN; Protocol PRN Reason: Pain, Severe (Pain Scale 7-10) Last Admin: 11/28/23 01:20 Dose: 0.5 mg Piperacillin Sod/Tazobactam (Sod 4.5 gm/ Sodium Chloride) 100 mls @ 200 mls/hr IV Q12H [facility] Last Infusion: 11/28/23 15:00 Dose: Infused Amiodarone HCl 900 mg/ Sodium (Chloride) 518 mls @ 17.267 mls/hr IVCONT .Q24H [facility]; Protocol Last Admin: 11/28/23 14:11 Dose: 0.5 mg/min, 17.27 mls/hr Diltiazem HCl 125 mg/ Sodium (Chloride) 125 mls @ 0 mls/hr IVCONT .Q0M [facility]; Protocol Last Titration: 11/26/23 21:26 Dose: 0 mg/hr, 0 mls/hr Propofol (Diprivan) 1,000 mg in 100 mls @ 0 mls/hr IVCONT .Q0M [facility]; Protocol Last Admin: 11/28/23 13:32 Dose: 30 mcg/kg/min, 26.37 mls/hr Phenylephrine HCl 100 mg/ (Sodium Chloride) 260 mls @ 0 mls/hr IVCONT .Q0M [facility]; Protocol Last Admin: 11/28/23 12:45 Dose: 1.5 mcg/kg/min, 34.28 mls/hr Metronidazole (Flagyl) 500 mg in 100 mls @ 100 mls/hr IV Q8H [facility] Last Infusion: 11/28/23 10:55 Dose: Infused Vancomycin HCl 750 mg/ Sodium (Chloride) 265 mls @ 265 mls/hr IV ONCE ONE Stop: 11/28/23 18:59 Vancomycin HCl 750 mg/ Sodium (Chloride) 265 mls @ 265 mls/hr IV ONCE ONE Stop: 11/29/23 16:59 Ondansetron HCl (Ondansetron Hcl 4 Mg/2 Ml Vial) 4 mg IVPUSH Q6H PRN PRN Reason: Nausea and Vomiting Last Admin: 11/25/23 02:52 Dose: 4 mg Oxycodone HCl (Oxycodone Hcl Er 10 Mg Tab.Er.12h) 10 mg PO BID [facility] Last Admin: 11/28/23 08:06 Dose: Not Given Oxycodone HCl (Oxycodone Hcl Immed Release 5 Mg Tablet) 5 mg PO Q6H PRN PRN Reason: Pain, Severe (Pain Scale 7-10) Last Admin: 11/23/23 14:35 Dose: 5 mg Pantoprazole Sodium (Pantoprazole Sodium 40 Mg/10 Ml Vial) 40 mg IVPUSH DAILY@0630 [facility] Last Admin: 11/28/23 06:37 Dose: 40 mg Pharmacy Consult (Consult Rx Vancomycin Dosing) 1 each MISCELLANE DAILY PRN PRN Reason: Consult order Senna (Senna [place] Extract Oral Syrup 15 Ml Syrup) 15 ml PO BEDTIME [facility] Last Admin: 11/27/23 20:30 Dose: Not Given Sodium Chloride (0.9 % Sodium Chloride Flush 3 Ml Syringe) 3 ml IVFLUSH QSHIFT [facility] Last Admin: 11/28/23 08:43 Dose: 3 ml Sodium Chloride (Sodium Chloride 3 % Inhalation 15 Ml Vial.Neb) 4 ml INHALE Q4H PRN PRN Reason: Cough Home Medications ?Medication ?Instructions ?Recorded ?Confirmed ?Type calcium carbonate (Tums) 1,000 mg PO BID PRN prior to 11/23/23 11/23/23 History ibuprofen ibuprofen 200 mg tablet 400 mg PO BID 11/23/23 11/23/23 History melatonin 10 mg disintegrating 10 mg PO BEDTIME 11/23/23 11/23/23 History tablet Allergies Allergy/AdvReac Type Severity Reaction Status Date / Time No Known Allergies Allergy Verified 11/23/23 03:43 [No Known Allergies*] Exam Vital signs: Vital Signs Temp 100.8 F H 11/28/23 14:00 Pulse 103 H 11/28/23 14:00 Resp 23 H 11/28/23 14:00 BP 95/58 L 11/28/23 14:00 Pulse Ox 97 11/28/23 14:00 O2 Del Method Mechanical Ventilation 11/28/23 14:00 FiO2 40 11/28/23 14:00 Intake & Output 11/27/23 11/28/23 11/28/23 18:59 06:59 18:59 Intake Total 1827.096 / 2907.015 1079.919 / 2907.015 1077.071 / 1077.071 Output Total 1240 / 6165 4375 / 6165 2955 / 2955 Balance 587.096 / -3257.985 -3295.081 / -3257.985 -1877.929 / -1877.929 Urine Output (Average ml/kg/hr) 0.62 2.38 1.70 Intake: Intake, IV Amount 1827.096 / 2907.015 1079.919 / 2907.015 1077.071 / 1077.071 Piperacillin Sodium/Tazobactam 100 / 200 100 / 200 100 / 100 4.5 gm In 0.9 % Sodium Chloride 100 ml @ 200 mls/hr IV Q12H [facility] Rx#:[id number] metroNIDAZOLE/NS 500 mg In 100 100 / 100 ml @ 100 mls/hr IV Q8H [facility] Rx#: [id number] vancomycin HCL 750 mg In 0.9 % 265 / 265 Sodium Chloride 250 ml @ 265 mls/hr IV ONCE ONE Rx#: [id number] Amiodarone HCL 900 mg In 0.9 % 411.89 / 411.89 417.071 / 417.071 Sodium Chloride 500 ml @ 0.5 MG /MIN 17.267 mls/hr IVCONT .Q24H [facility] Rx#:[id number] Phenylephrine HCL 100 mg In 0.9 750.206 / 1418.519 668.313 / 1418.519 260 / 260 % Sodium Chloride 250 ml @ Per Protocol IVCONT .Q0M [facility] Rx#: [id number] propofoL 1,000 mg In 100 ml @ 300 / 611.606 311.606 / 611.606 200 / 200 Per Protocol IVCONT .Q0M [facility] Rx #:[id number] Output: Output, Urine Amount (Catheter) 1090 / 5765 4125 / 5765 2955 / 2955 Urethral 1090 / 5765 4125 / 5765 2955 / 2955 Output, Gastric Drainage Amount 150 / 400 250 / 400 Oral 150 / 400 250 / 400 Other: NPO Yes Urine Color Yellow Last Bowel Movement 11/26/23 11/26/23 11/25/23 Weight 145.5 kg 144.5 kg Weight in Grams 176803 Weight 144.5 kg BMI result Body Mass Index 44.4 - Constitutional Present: obese - Routine Respiratory Exam Absent: accessory muscle use - Routine Cardiovascular Exam Cardiovascular: Present: S1, S2 - Routine Extremities Exam Present: pedal edema - Routine Skin Exam Present: lesions Data - Labs CBC & Chem 7: 11/28/23 05:09 11/28/23 05:09 Labs: Laboratory Last Values WBC 25.2 X10*3/uL (4.8-10.8) H 11/28/23 05:09 RBC 2.72 X10*6/uL (4.60-5.80) L 11/28/23 05:09 Hgb 7.7 g/dl (14.0-18.0) L 11/28/23 05:09 Hct 23.3 % (42.0-52.0) L 11/28/23 05:09 MCV 85.7 fL (80.0-98.0) 11/28/23 05:09 MCH 28.3 pg (27.0-33.0) 11/28/23 05:09 MCHC 33.0 g/dl (31.0-36.0) 11/28/23 05:09 RDW 16.8 % (11.0-16.0) H 11/28/23 05:09 Plt Count 270 X10*3/uL (160-400) 11/28/23 05:09 MPV 10.0 fL (9.4-12.4) 11/28/23 05:09 Immature Gran % (Auto) 3.7 % (0.0-0.4) H 11/28/23 05:09 Neut % (Auto) 85.9 % (45-73) H 11/28/23 05:09 Lymph % (Auto) 7.7 % (20-40) L 11/28/23 05:09 [place] % (Auto) 2.0 % (2-11) 11/28/23 05:09 Eos % (Auto) 0.4 % (0-4) 11/28/23 05:09 Baso % (Auto) 0.3 % (0-2) 11/28/23 05:09 Lymph # (Auto) 1.9 X10*3/uL (1.2-4.9) 11/28/23 05:09 [place] # (Auto) 0.5 X10*3/uL (0.1-1.2) 11/28/23 05:09 Eos # (Auto) 0.1 X10*3/uL (0.0-0.4) 11/28/23 05:09 Baso # (Auto) 0.1 X10*3/uL (0.0-0.2) 11/28/23 05:09 Abs Immat Gran (auto) 0.92 X10*3/uL (0.00-0.03) H 11/28/23 05:09 Absolute Neuts (auto) 21.7 x10*3/uL (2.0-8.3) H 11/28/23 05:09 Absolute Nucleated RBC 0.330 X10*3/uL (0.0-0.012) H 11/28/23 05:09 Nucleated RBC % (auto) 1.3 /100WBC (0.0-0.2) H 11/28/23 05:09 Neutrophils % (Manual) 75 % (45-73) H 11/26/23 20:32 Band Neutrophils % 19 % (3-5) H 11/26/23 20:32 Lymphocytes % (Manual) 4 % (20-40) L 11/26/23 20:32 Monocytes % (Manual) 1 % (2-11) L 11/26/23 20:32 Eosinophils % (Manual) 1 % (0-4) 11/24/23 05:26 Basophils % (Manual) 1 % (0-2) 11/26/23 20:32 Metamyelocytes % 1 % 11/23/23 14:32 Abs Neuts (Manual) 31.4 X10*3/uL (2.0-8.3) H 11/26/23 20:32 Lymphocytes # (Manual) 1.3 X10*3/uL (1.2-4.9) 11/26/23 20:32 Monocytes # (Manual) 0.3 X10*3/uL (0.1-1.2) 11/26/23 20:32 Eosinophils # (Manual) 0.1 X10*3/uL (0.0-0.4) 11/24/23 05:26 Basophils # (Manual) 0.3 X10*3/uL (0.0-0.2) H 11/26/23 20:32 Metamyelocytes # 0.1 X10*3/uL 11/23/23 14:32 Nucleated RBCs 1 /100WBC (0-0) H 11/25/23 06:02 Toxic Granulation PRESENT 11/26/23 20:32 Toxic Vacuolation PRESENT 11/23/23 10:39 Dohle Bodies PRESENT 11/23/23 14:32 Platelet Estimate NORMAL (NORMAL) 11/26/23 20:32 Large Platelets PRESENT 11/23/23 03:28 Plt Morphology Comment NORMAL 11/26/23 20:32 RBC Morphology NOTED 11/26/23 20:32 Polychromasia 1+ (0-2) /OIF 11/26/23 20:32 Hypochromasia 1+ (5-14) /OIF 11/24/23 05:26 Macrocytosis 1+ (5-14) /OIF 11/26/23 20:32 Ovalocytes 1+ (5-14) /OIF 11/26/23 20:32 [place] Cells 1+ (0-2) /OIF 11/26/23 20:32 Acanthocytes (Spur) 1+ (0-2) /OIF 11/26/23 20:32 Smear Tech's Comments VERIFIED 11/28/23 05:09 Smear Path Review SEE NOTE 11/23/23 06:10 Absolute Retic 0.066 X10*6/uL (0.026-0.095) 11/24/23 15:23 Percent Retic 2.4 % (0.5-1.8) H 11/24/23 15:23 Immature Retic Fraction 33.9 % (2.3-13.4) H 11/24/23 15:23 Retic Hgb Equivalent 28.1 pg (30.0-35.0) L 11/24/23 15:23 Haptoglobin 235 mg/dL (43-212) H 11/24/23 15:23 Hold Purple Top SEE NOTE 11/24/23 20:03 PT 41.1 SEC (11.1-13.3) H D 11/28/23 05:09 INR 3.4 (0.9-1.1) H D 11/28/23 05:09 Fibrinogen 616 MG/DL (259-690) 11/27/23 09:13 D-Dimer High Sensitivty 2133 NG/ML 11/27/23 09:13 VBG pH 7.40 (7.32-7.43) 11/28/23 05:10 VBG pCO2 36 mmHg 11/28/23 05:10 VBG pO2 42 mmHg 11/28/23 05:10 VBG HCO3 23 mmol/L (22-26) 11/28/23 05:10 VBG O2 Saturation 67.0 % 11/28/23 05:10 VBG Base Excess -1.0 mmol/L 11/28/23 05:10 Sodium 145 mmol/L (135-145) 11/28/23 05:09 Potassium 3.3 mmol/L (3.3-5.1) 11/28/23 05:09 Chloride 109 mmol/L (96-108) H 11/28/23 05:09 Carbon Dioxide 18 mmol/L (22-29) L 11/28/23 05:09 Anion Gap 21 (12-20) H 11/28/23 05:09 BUN 94 mg/dL (9-16) H 11/28/23 05:09 Creatinine 3.24 mg/dL (0.5-1.4) H 11/28/23 05:09 Estim Creat Clear Calc 30.1 11/28/23 05:09 Estimated GFR 19 11/28/23 05:09 Random Glucose 140 mg/dL (60-115) H 11/28/23 05:09 Lactic Acid 4.0 mmol/L (0.5-2.0) H* 11/23/23 03:33 Lactic Acid F/U @ 2Hr 1.7 mmol/L (0.5-2.0) 11/23/23 06:09 Calcium 7.3 mg/dL (8.4-10.2) L 11/28/23 05:09 Phosphorus 4.2 mg/dL (2.7-4.5) 11/28/23 05:09 Magnesium 2.2 mg/dL (1.6-2.6) 11/28/23 05:09 Total Bilirubin 1.7 mg/dL (0.0-1.0) H 11/28/23 05:09 AST 458 U/L (5-37) H 11/28/23 05:09 ALT 94 U/L (0-40) H 11/28/23 05:09 Alkaline Phosphatase 106 U/L (39-117) 11/28/23 05:09 Lactate Dehydrogenase 431 U/L (118-273) H 11/24/23 15:23 Troponin I High Sens 60.7 ng/L (<3.5-35.0) H D 11/23/23 03:28 C-Reactive Protein 27.58 mg/dL (< or = 0.50) H 11/26/23 05:37 C-React Prot High Sens >20.0 mg/L H 11/25/23 06:02 B-Natriuretic Peptide 239 pg/mL (<100) H 11/26/23 05:37 Total Protein 6.1 g/dL (6.5-8.0) L 11/28/23 05:09 Albumin 3.1 g/dL (3.5-5.0) L 11/28/23 05:09 Lipase 33 U/L (8-78) 11/25/23 06:02 Urine Color Yellow 11/23/23 05:05 Urine Appearance Clear 11/23/23 05:05 Urine pH 5.5 (5.0-9.0) 11/23/23 05:05 Ur Specific [place] 1.015 (1.005-1.025) 11/23/23 05:05 Urine Protein 30 (1+) mg/dL (Neg-Trace) H 11/23/23 05:05 Urine Glucose (UA) Negative mg/dL (Negative) 11/23/23 05:05 Urine Ketones Negative mg/dL (Negative) 11/23/23 05:05 Urine Blood Negative (Negative) 11/23/23 05:05 Urine Nitrite Negative (Negative) 11/23/23 05:05 Ur Leukocyte Esterase Negative (Negative) 11/23/23 05:05 Urine RBC 0-2 /HPF (0-2) 11/23/23 05:05 Urine WBC 0-5 /HPF (0-5) 11/23/23 05:05 Ur Squamous Epith Cells 3-5 /HPF (0-2) 11/23/23 05:05 Urine Bacteria None Seen (None Seen) 11/23/23 05:05 Hyaline Casts 3-5 /LPF (0-2) 11/23/23 05:05 Stool Occult Blood POSITIVE (NEGATIVE) 11/23/23 06:09 Random Vancomycin 16.7 mcg/mL (15-20) 11/28/23 12:01 Blood Type O Positive 11/26/23 13:37 Antibody Screen NEGATIVE 11/26/23 13:37 ORA, Polyspecific NEGATIVE 11/23/23 06:10 Positive ORA Work-up TNP 11/23/23 06:10 Crossmatch See Detail 11/23/23 06:10 - Imaging Radiologist's impression: ITS Impressions Chest X-Ray 11/23/23 04:40 IMPRESSION: Suggestion of minimal bibasilar atelectasis without additional acute findings. Abdomen/Pelvis CT 11/23/23 07:59 IMPRESSION: Again enlargement of the pancreatic head with diffuse pancreatic parenchymal edema and extensive peripancreatic stranding. This most likely represents acute pancreatitis. Interval placement of right groin central venous catheter with hyperdensity and enlargement the right abductor musculature likely representing underlying hematoma. Bilateral nonobstructing renal calculi. No hydronephrosis. Gallbladder distention. Lymphadenopathy involving the LEFT common iliac, external iliac, iliac chain and inguinal regions. This lymphadenopathy is unchanged from 06/30/2023. Extremity Ultrasound 11/23/23 16:10 FINDINGS / IMPRESSION: No right groin hematoma is visualized. Venous Duplex 11/24/23 20:14 IMPRESSION: No DVT demonstrated in the left lower extremity. Please note, the left peroneal vein is not visualized. Chest X-Ray 11/26/23 06:44 IMPRESSION: 1. Bilateral low lung volumes. 2. Slight bibasilar atelectasis. 3. Potential trace left pleural effusion. Chest X-Ray 11/26/23 11:36 IMPRESSION: 1. Enteric tube courses below left hemidiaphragm into the stomach out of the [id number]. 2. Endotracheal tube approximately 6.8 cm from the level of derik. 3. Bilateral low lung volumes. 4. Bibasilar atelectasis. 5. Prominence of the pulmonary vasculature. Abdomen/Pelvis CT 11/26/23 17:39 IMPRESSION: 1. Mild edematous changes around the pancreas consistent with pancreatitis. No pancreatic pseudocysts are seen. Findings are unchanged when compared to the study of 3 days ago. 2. New bibasilar atelectasis and small pleural effusions. 3. Other incidental findings as described above including bilateral nonobstructing renal calculi, colonic diverticulosis, avascular necrosis left femoral head and degenerative changes in the spine with mild anterior wedging of L3. Fleischner guidelines were followed. Head CT 11/26/23 17:39 IMPRESSION: 1. No acute intracranial pathology. 2. Chronic white matter small vessel ischemic changes. 3. Cerebral atrophy with commensurate ventricular changes. 4. Opacification of the left maxillary sinus. Lower Extremity CT 11/26/23 17:39 IMPRESSION: Skin thickening and subcutaneous edema in the left leg without evidence of a focal fluid collection or subcutaneous air. Abdomen Ultrasound 11/28/23 09:39 IMPRESSION: Increased hepatic echogenicity suggesting hepatic steatosis. Assessment and Plan Patient Active problem list reviewed?: Yes (1) Coagulopathy Status: Acute Assessment and plan: 1. This is a 73-year-old male admitted to ICU with probable septic shock, acute pancreatitis, acute kidney injury, acute hypoxemic respiratory failure and found to be coagulopathic with supratherapeutic INR. He was on warfarin for atrial fibrillation which was discontinued since his admission on 11/23/2023. He received multiple units of FFP, 6 units on 11/23/2023, 1 unit on 11/25/2023 and another on 11/26/2023. He got 3 units PRBC for a hemoglobin of 5.7 gram/dL. His hemoglobin improved to 8.3 gram/dL on 11/25/2023 but dropped again after cardiac arrest on 11/26/2023 and worsening kidney function. He has no signs of acute bleeding. He probably had GI bleeding before arrival to the hospital. According to [facility] nurse, he has not had any significant problems in the past with his INRs. Rate of decline of INR following warfarin cessation depends on INR value prior to warfarin withdrawal as well as other factors such as age, weight of patient and comorbidities. Warfarin elimination could be influenced by polymorphisms in the CYP2C9 gene. Medications such as Zosyn and vancomycin can also potentiate effect of warfarin leading to slower decline in INR. His multiple comorbidities including liver disease, vitamin K deficiency, renal insufficiency and shock would influence warfarin metabolism resulting in slower elimination and therefore more time for INR to come down. Since he is not bleeding and his H&H is stable, I would continue to closely monitor at this time. There is no evidence of DIC, his platelet counts are normal. Thank you for the consult, will follow with you. - Time Spent With Patient Time Spent with Patient (in minutes): 10
[2023-11-28] MEDS: vancomycin HCL 750 MG in 0.9 % Sodium Chloride 250 ML 265 MG IV (17:47)
[2023-11-28 20:57] LABS: Hematocrit 24.2 % (42.0-52.0); Hemoglobin 8.2 g/dl (14.0-18.0); Mean Corpuscular HGB Conc 33.9 g/dl (31.0-36.0); Mean Corpuscular Hemoglobin 28.6 pg (27.0-33.0); Mean Corpuscular Volume 84.3 fL (80.0-98.0); Mean Platelet Volume 9.9 fL (9.4-12.4); Platelet Count 250 X10*3/uL (160-400); Red Blood Count 2.87 X10*6/uL (4.60-5.80); Red Cell Distribution Width 16.5 % (11.0-16.0); White Blood Count 26.8 X10*3/uL (4.8-10.8)
[2023-11-28 20:58] LABS: NRBC Pct Auto 1.8 /100WBC (0.0-0.2)
[2023-11-28 21:41] LABS: SLIDE REVIEW MANUAL DIFF
[2023-11-28 21:49] LABS: Band Neutrophils Percent 1 % (3-5); Lymphocytes Absolute Manual 1.3 X10*3/uL (1.2-4.9); Lymphocytes Percent Manual 5 % (20-40); Monocytes Absolute Manual 0.8 X10*3/uL (0.1-1.2); Monocytes Percent Manual 3 % (2-11); Myelocytes Absolute 0.3 X10*/uL; Myelocytes Percent 1 %; Neutrophils Absolute Manual 23.6 X10*3/uL (2.0-8.3); Neutrophils Percent Manual 87 % (45-73)
[2023-11-28 21:50] LABS: Blast Percent 3 %; Blastocytes Absolute 0.8 X10*3/uL; Nucleated Red Blood Cells 3 /100WBC (0-0); Ovalocytes 1+ (5-14) /OIF; RBC Morphology NOTED
[2023-11-28 21:51] LABS: Acanthocytes 1+ (0-2) /OIF; Burr Cells 3+ (>5) /OIF; Platelet Estimate NORMAL (NORMAL); Platelet Morphology Comment NORMAL
[2023-11-28 21:52] LABS: Schistocytes 1+ (0-2) /OIF
[2023-11-28] MEDS: Acetaminophen Oral Liquid 650 MG/20.3 ML SOLUTION 975 MG PO (22:44)
[2023-11-28] MEDS: dilTIAZem HCL 30 MG TABLET PO (22:44)
[2023-11-29] VITALS (43 sets, daily range): BP systolic 85–123; BP diastolic 50–83; PULSE 85–115; RESP 16–33; TEMP 35–38.8; O2SAT 90–99; BMI 43.2
[2023-11-29] MEDS: propofoL 1,000 MG/100 ML VIAL 26.37 MG IVCONT ×3 (00:08→06:37)
[2023-11-29] MEDS: HYDROmorphone HCl 0.5 MG/0.5 ML SYRINGE IVPUSH ×5 (00:49→21:17)
[2023-11-29] MEDS: metroNIDAZOLE/NS 500 MG/100 ML PIGGYBACK 100 MG IV ×3 (01:37→17:16)
[2023-11-29] MEDS: Furosemide 100 MG/10 ML VIAL 80 MG IVPUSH ×3 (01:51→21:29)
[2023-11-29] MEDS: Piperacillin Sodium/Tazobactam 4.5 GM in 0.9 % Sodium Chloride 100 ML IV ×2 (01:52→15:05)
[2023-11-29] MEDS: Phenylephrine HCL 100 MG in 0.9 % Sodium Chloride 250 ML 57.14 MG IVCONT ×3 (01:53→17:23)
[2023-11-29] MEDS: Phenylephrine HCL 100 MG in 0.9 % Sodium Chloride 250 ML 79.99 MG IVCONT ×2 (05:44→09:00)
[2023-11-29] MEDS: Pantoprazole Sodium 40 MG/10 ML VIAL IVPUSH (05:53)
[2023-11-29 06:03] LABS: VBG Base Excess 5.3 mmol/L; VBG HCO3 30 mmol/L (22-26); VBG pCO2 46 mmHg; VBG pH 7.42 (7.32-7.43); VBG pO2 39 mmHg
[2023-11-29 06:03] LABS: Venous Blood Gas Refer to POC result
[2023-11-29 06:59] LABS: INTERNATIONAL NORM RATIO 3.2 (0.9-1.1); Prothrombin Time 38.5 SEC (11.1-13.3)
[2023-11-29 07:00] LABS: Basophils Absolute Auto 0.1 X10*3/uL (0.0-0.2); Basophils Percent Auto 0.4 % (0-2); Eosinophils Absolute Auto 0.4 X10*3/uL (0.0-0.4); Eosinophils Percent Auto 1.5 % (0-4); Hematocrit 25.8 % (42.0-52.0); Hemoglobin 8.6 g/dl (14.0-18.0); Imm Gran Pct Auto 4.1 % (0.0-0.4); Lymphocytes Absolute Auto 2.4 X10*3/uL (1.2-4.9); Lymphocytes Percent Auto 8.2 % (20-40); MANUAL DIFF FLAG SCAN; Mean Corpuscular HGB Conc 33.3 g/dl (31.0-36.0); Mean Corpuscular Hemoglobin 28.8 pg (27.0-33.0); Mean Corpuscular Volume 86.3 fL (80.0-98.0); Mean Platelet Volume 10.2 fL (9.4-12.4); Monocytes Absolute Auto 0.5 X10*3/uL (0.1-1.2); Monocytes Percent Auto 1.7 % (2-11); Neutrophils Absolute Auto 24.7 x10*3/uL (2.0-8.3); Neutrophils Percent Auto 84.1 % (45-73); Platelet Count 269 X10*3/uL (160-400); Red Blood Count 2.99 X10*6/uL (4.60-5.80); Red Cell Distribution Width 16.7 % (11.0-16.0); SCAN SMEAR FLAG 1; White Blood Count 29.3 X10*3/uL (4.8-10.8)
[2023-11-29 07:14] LABS: NRBC Pct Auto 2.6 /100WBC (0.0-0.2)
[2023-11-29 07:18] LABS: Alanine Aminotransferase 219 U/L (0-40); Albumin Level 2.9 g/dL (3.5-5.0); Alkaline Phosphatase 127 U/L (39-117); Anion Gap 22 (12-20); Aspartate Amino Transferase 821 U/L (5-37); Bilirubin Total 2.4 mg/dL (0.0-1.0); Blood Urea Nitrogen 94 mg/dL (9-16); Calcium 7.9 mg/dL (8.4-10.2); Carbon Dioxide 24 mmol/L (22-29); Chloride 109 mmol/L (96-108); Creatinine Clr Calc Pharmacy 36.3; Estimated Glomerular Filt Rate 24; Glucose Random 142 mg/dL (60-115); Potassium 2.7 mmol/L (3.3-5.1); Sodium 152 mmol/L (135-145); Total Protein 6.3 g/dL (6.5-8.0)
[2023-11-29 07:43] LABS: SLIDE REVIEW VERIFIED
[2023-11-29] MEDS: Chlorhexidine Gluc Oral Rinse 15 ML MOUTHWASH BUCCAL ×3 (08:00→21:16)
[2023-11-29] MEDS: 0.9 % Sodium Chloride Flush 3 ML SYRINGE IVFLUSH ×2 (08:00→15:05)
[2023-11-29] MEDS: Collagenase Clostridium Hist. 30 GM TUBE 1 APPL TOPICAL (08:01)
--- NOTE | 2023-11-29 10:35 | PM.CCPN ---
Subjective Subjective Date of Service: 11/29/23 Critical Care Time (minutes): 45 Comment: On ventilator support this morning Was on fentanyl and propofol for sedation and analgesia which has been weaned off since this morning after which he has been following some commands Good urine output,-4.1 L in the past 24 hours, renal function improving Hypernatremic to 152 from diuresis Worsening transaminitis Physical Exam Vital Signs: Vital Signs: Last Vital Signs Temp 98.2 F 11/29/23 10:00 Pulse 91 11/29/23 10:00 Resp 16 11/29/23 10:00 BP 93/68 11/29/23 10:05 Pulse Ox 98 11/29/23 10:00 O2 Del Method Mechanical Ventil ation 11/29/23 10:00 FiO2 35 11/29/23 10:00 BMI result Body Mass Index 43.2 General: Patient in acute distress, he is ill appearing and tired appearing Nutritional Appearance: well nourished and overweight Eyes: appearance normal, both eyes and all related structures; Alignment and Position: alignment normal and position normal Neck: No lymphadenopathy, no thyromegaly Resp: bilateral air entry equal, occasional added sounds present in bilateral lung bases Cardio: Regular rate, regular rhythm; Heart sounds: S1 normal heart sound present and S2 normal heart sound present GI: soft, nontender, no guarding, no hepatosplenomegaly : bladder normal to inspection, bladder normal to palpation, no renal angle tenderness Skin: Redness and erythema noted in both thighs more in the left than right. Cellulitis noted in both legs which is wrapped with dressing Neuro: Sedated propofol, following some commands upon weaning sedation Objective Data Labs 11/29/23 05:53 11/29/23 05:53 Labs: Laboratory Results - last 24 hr 11/28/23 11/28/23 11/29/23 12:01 20:44 05:53 WBC 26.8 H 29.3 H RBC 2.87 L 2.99 L Hgb 8.2 L 8.6 L Hct 24.2 L 25.8 L MCV 84.3 86.3 MCH 28.6 28.8 MCHC 33.9 33.3 RDW 16.5 H 16.7 H Plt Count 250 269 MPV 9.9 10.2 Immature Gran % (Auto) Cancelled 4.1 H Neut % (Auto) Cancelled 84.1 H Lymph % (Auto) Cancelled 8.2 L [place] % (Auto) Cancelled 1.7 L Eos % (Auto) Cancelled 1.5 Baso % (Auto) Cancelled 0.4 Lymph # (Auto) Cancelled 2.4 [place] # (Auto) Cancelled 0.5 Eos # (Auto) Cancelled 0.4 Baso # (Auto) Cancelled 0.1 Abs Immat Gran (auto) Cancelled 1.20 H Absolute Neuts (auto) Cancelled 24.7 H Absolute Nucleated RBC 0.470 H 0.750 H Nucleated RBC % (auto) 1.8 H 2.6 H Neutrophils % (Manual) 87 H Band Neutrophils % 1 L Lymphocytes % (Manual) 5 L Monocytes % (Manual) 3 Myelocytes % 1 Blast Cells % (Manual) 3 Abs Neuts (Manual) 23.6 H Lymphocytes # (Manual) 1.3 Monocytes # (Manual) 0.8 Myelocytes # 0.3 Blast Cells # 0.8 Nucleated RBCs 3 H Platelet Estimate NORMAL Plt Morphology Comment NORMAL RBC Morphology NOTED Ovalocytes 1+ (5-14) Ramin Cells 3+ (>5) Acanthocytes (Spur) 1+ (0-2) Schistocytes 1+ (0-2) Smear Tech's Comments MANUAL DIFF VERIFIED PT 38.5 H INR 3.2 H VBG pH VBG pCO2 VBG pO2 VBG HCO3 VBG O2 Saturation VBG Base Excess Sodium 152 H Potassium 2.7 L* Chloride 109 H Carbon Dioxide 24 Anion Gap 22 H BUN 94 H Creatinine 2.63 H Estim Creat Clear Calc 36.3 Estimated GFR 24 Random Glucose 142 H Calcium 7.9 L D Total Bilirubin 2.4 H AST 821 H ALT 219 H Alkaline Phosphatase 127 H Total Protein 6.3 L Albumin 2.9 L Random Vancomycin 16.7 11/29/23 05:54 WBC RBC Hgb Hct MCV MCH MCHC RDW Plt Count MPV Immature Gran % (Auto) Neut % (Auto) Lymph % (Auto) [place] % (Auto) Eos % (Auto) Baso % (Auto) Lymph # (Auto) [place] # (Auto) Eos # (Auto) Baso # (Auto) Abs Immat Gran (auto) Absolute Neuts (auto) Absolute Nucleated RBC Nucleated RBC % (auto) Neutrophils % (Manual) Band Neutrophils % Lymphocytes % (Manual) Monocytes % (Manual) Myelocytes % Blast Cells % (Manual) Abs Neuts (Manual) Lymphocytes # (Manual) Monocytes # (Manual) Myelocytes # Blast Cells # Nucleated RBCs Platelet Estimate Plt Morphology Comment RBC Morphology Ovalocytes Ramin Cells Acanthocytes (Spur) Schistocytes Smear Tech's Comments PT INR VBG pH 7.42 VBG pCO2 46 VBG pO2 39 VBG HCO3 30 H VBG O2 Saturation 58.0 VBG Base Excess 5.3 Sodium Potassium Chloride Carbon Dioxide Anion Gap BUN Creatinine Estim Creat Clear Calc Estimated GFR Random Glucose Calcium Total Bilirubin AST ALT Alkaline Phosphatase Total Protein Albumin Random Vancomycin Microbiology Microbiology Results: Microbiology 11/23/23 09:40 Blood - Venous Blood Culture - Final No growth after 5 days. 11/24/23 19:45 Leg Right Gram Stain - Final 11/24/23 19:45 Leg Right Routine Culture - Preliminary Enterococcus faecalis Acinetobacter baumannii Stenotrophomonas maltophilia 11/24/23 19:45 Leg Left Gram Stain - Final 11/24/23 19:45 Leg Left Routine Culture - Preliminary Streptococcus pyogenes (Grp A) Serratia marcescens Stenotrophomonas maltophilia 11/23/23 03:33 Blood - Venous Blood Culture - Preliminary Streptococcus pyogenes (Grp A) Progress Note: A&P Assessment and plan (1) Acute pancreatitis: Status: Acute (2) Acute kidney injury: Status: Acute (3) Sepsis: Status: Acute (4) Coagulopathy: Status: Acute (5) Lung abnormality: Status: Acute (6) Bilateral kidney stones: Status: Acute (7) Atrial fibrillation: Status: Chronic Plan 73-year-old past medical history of moderate aortic stenosis, atrial fibrillation on Coumadin for anticoagulation presents to the with shock, drop in hemoglobin and along with INR > 26. Shock improved and is off Levophed since 11/24/2023. Has pancreatitis on the CT and left lower extremity cellulitis with rash is progressing up to mid thigh and is growing multiple bacteria us in each leg. He also has atrial fibrillation with RVR, cardioverted in the ED, not responding well to amiodarone. He had a large volume of bilious fluid aspiration leading to cardiac arrest needing emergent intubation, CPR with a down time of 7 minutes on 11/26/2023. He is planned for extubation today Acute encephalopathy: Secondary to metabolic encephalopathy CT brain did not show any acute intracranial changes On propofol for sedation and fentanyl for analgesia, will wean propofol to wean him off the ventilator. Shock: Continues to be on phenylephrine for vasopressor support, titrate to keep the map above 65 mm Hg TTE showed normal LV systolic function, severe aortic stenosis. Atrial fibrillation with RVR: Rate controlled, continue amiodarone drip. Can change to amiodarone p.o. tomorrow, OG tube is up for suction so can not do oral pills He was cardioverted in the ED Metoprolol 25 mg b.i.d, oral diltiazem 60 mg b.i.d. held as NG tube is on intermittent suction Warfarin for anticoagulation withheld due to coagulopathy, INR still high, 3.2. Acute hypoxemic respiratory failure: Intubated and on ventilator support for aspiration pneumonia Currently on pressure control ventilator 06/18.5 with a rate of 16, FiO2 50%, tends to pressor support more this morning doing well. We will plan for extubation during the day and then closely monitor his respiratory status for another 24 hours Ventilator management bundle including head elevation, chlorhexidine mouthwash, daily spontaneous breathing trial, daily spontaneous awakening trials Acute pancreatitis: CT suggestive of acute pancreatitis, lipase slightly increased; validated by the repeat CT Had large volume vomitus possibly due to secondary to inflammation around the pancreas. Feeds held, NG tube for intermittent suction due to concerns for high-risk for aspiration and cardiac arrest secondary to large volume aspiration We will continue to closely monitor Transaminitis: Has worsening transaminitis, AST increased to 820, ALT to 219 Ultrasound of the liver did not show any acute pathology, has only chronic steatosis Possibly secondary to sepsis and multiorgan failure. We will look back into all his medications to see if medications is the reason for worsening transaminitis if so we will change. Acute blood loss anemia: His baseline hemoglobin is around 13, dropped to 5.7 the lowest, hemoglobin stable for the past 4 days. Hemoglobin 8.6 this morning, increased with diuresis So far he has received 3 units of PRBC and 6 units of FFP. transfuse to keep the hemoglobin above 7 grams/deciliter No clear source of bleeding, patient denies any bloody bowel movements although his stool for occult blood is positive. No significant bowel movements suggesting GI bleed, in fact his constipated Reticulocyte count slightly elevated but not significant enough 2 labeled hemolytic anemia, LDH slightly high 400s can be multifactorial, haptoglobin normal to slightly high; normal Eda test. CT abdomen concerning for hematoma in the right abductor muscles around the site of insertion of central line. No obvious hematoma externally, no hematoma noted on ultrasound thigh either Acute kidney injury: baseline around 1.06; increased to 4.9 upon admission, currently trending down with diuresis, down to 2.63. On Lasix 80 mg t.i.d. along with Diuril. We will decrease the Lasix to 80 mg b.i.d. Possibly secondary to ATN from acute drop in hemoglobin and shock improving with resuscitation and now due to cardiac arrest Avoid nephrotoxic medications, closely monitor I's and O's Hypernatremia: Sodium increased to 152, secondary to aggressive diuresis We will start on D5 water at 75 cc/hour as he will still be NPO after extubation and sodium might increase for the iron Hypokalemia: Secondary to aggressive diuresis We will give 40meq of potassium chloride and we will also give 2 g of magnesium We will repeat CMP this afternoon Coagulopathy: Presented with INR greater than 26, patient was on Coumadin for atrial fibrillation with RVR Received 6 units of FFP, INR this morning 3.4 No evidence of DIC, fibrinogen levels around 400 Infectious disease: Patient is on broad-spectrum antibiotics vancomycin and Zosyn lower extremity cellulitis: Cultures growing multiple organisms in both the legs including Enterobacter, Acinetobacter and stenotrophomonas, CT of the leg did not show any fluid collections or soft tissue air. Continue Flagyl to cover stenotrophomonas CT abdomen showing dilated head of pancreas, and edema around the pancreas suggestive of pancreatitis. Endocrine: Blood sugars well controlled Lines: Right femoral TLC placed on admission Gamino catheter Prophylaxis: SCD, pantoprazole Quality Stroke Does the patient have a stroke diagnosis?: No VTE Prior VTE?: No VTE Risk Level:: Medical - moderate - high VTE Device Contraindication: Treatment Not Tolerated VTE Drug Contraindication: N/A - Med Ordered
[2023-11-29] MEDS: Magnesium Sulfate/H2O 2 GM/50 ML PIGGYBACK IV (11:04)
[2023-11-29] MEDS: Potassium Chloride/H20 10 MEQ/100 ML PIGGYBACK 100 MEQ IV ×4 (11:09→14:50)
[2023-11-29] MEDS: Dextrose 5 % 1,000 ML 75 ML IVCONT ×2 (11:12→23:14)
[2023-11-29 12:41] LABS: Osmolality Urine 363 mosm/kg (373-1093)
[2023-11-29] MEDS: Amiodarone HCL 900 MG in 0.9 % Sodium Chloride 500 ML 17.27 MG IVCONT (13:48)
[2023-11-29 16:38] LABS: Vancomycin Random 14.2 mcg/mL (15-20)
[2023-11-29] MEDS: vancomycin HCL 750 MG in 0.9 % Sodium Chloride 250 ML 265 MG IV (17:20)
[2023-11-29 18:52] LABS: Alanine Aminotransferase 172 U/L (0-40); Albumin Level 2.7 g/dL (3.5-5.0); Alkaline Phosphatase 105 U/L (39-117); Anion Gap 19 (12-20); Aspartate Amino Transferase 348 U/L (5-37); Bilirubin Total 2.8 mg/dL (0.0-1.0); Blood Urea Nitrogen 82 mg/dL (9-16); Carbon Dioxide 27 mmol/L (22-29); Chloride 110 mmol/L (96-108); Creatinine Clr Calc Pharmacy 42.9; Estimated Glomerular Filt Rate 29; Glucose Random 193 mg/dL (60-115); Potassium 2.5 mmol/L (3.3-5.1); Sodium 153 mmol/L (135-145); Total Protein 6.1 g/dL (6.5-8.0)
[2023-11-29] MEDS: Amiodarone HCL 200 MG TABLET 400 MG PO (21:16)
[2023-11-29] MEDS: Potassium Chloride Packet 20 MEQ PACKET 40 MEQ PO (21:32)
[2023-11-29] MEDS: dilTIAZem HCL 30 MG TABLET PO (21:34)
[2023-11-29] MEDS: Potassium Chloride/H20 40 MEQ/100 ML PIGGYBACK 100 MEQ IV (21:57)
[2023-11-29] MEDS: Phenylephrine HCL 100 MG in 0.9 % Sodium Chloride 250 ML 45.71 MG IVCONT (22:31)
[2023-11-30] VITALS (32 sets, daily range): BP systolic 84–137; BP diastolic 50–74; PULSE 85–130; RESP 18–38; TEMP 36.6–38.4; O2SAT 90–97; BMI 41.3
[2023-11-30] MEDS: metroNIDAZOLE/NS 500 MG/100 ML PIGGYBACK 100 MG IV (00:32)
[2023-11-30] MEDS: 0.9 % Sodium Chloride Flush 3 ML SYRINGE IVFLUSH ×3 (00:32→15:00)
[2023-11-30] MEDS: HYDROmorphone HCl 0.5 MG/0.5 ML SYRINGE IVPUSH ×3 (01:01→22:18)
[2023-11-30] MEDS: oxyCODONE HCl Immed Release 5 MG TABLET PO (02:06)
[2023-11-30] MEDS: Piperacillin Sodium/Tazobactam 4.5 GM in 0.9 % Sodium Chloride 100 ML IV (02:15)
[2023-11-30] MEDS: Phenylephrine HCL 100 MG in 0.9 % Sodium Chloride 250 ML 45.71 MG IVCONT (03:56)
[2023-11-30 05:14] LABS: VBG Base Excess 10.7 mmol/L; VBG HCO3 35 mmol/L (22-26); VBG pCO2 48 mmHg; VBG pH 7.47 (7.32-7.43); VBG pO2 32 mmHg
[2023-11-30 05:21] LABS: Venous Blood Gas Refer to POC result
[2023-11-30] MEDS: dilTIAZem HCL 30 MG TABLET PO (05:31)
[2023-11-30] MEDS: Pantoprazole Sodium 40 MG/10 ML VIAL IVPUSH (05:57)
[2023-11-30 06:19] LABS: Basophils Absolute Auto 0.1 X10*3/uL (0.0-0.2); Basophils Percent Auto 0.3 % (0-2); Eosinophils Absolute Auto 0.4 X10*3/uL (0.0-0.4); Eosinophils Percent Auto 1.3 % (0-4); Hematocrit 27.9 % (42.0-52.0); Hemoglobin 9.2 g/dl (14.0-18.0); Imm Gran Abs Auto 0.91 X10*3/uL (0.00-0.03); Imm Gran Pct Auto 3.4 % (0.0-0.4); Lymphocytes Absolute Auto 1.7 X10*3/uL (1.2-4.9); Lymphocytes Percent Auto 6.3 % (20-40); MANUAL DIFF FLAG SCAN; Mean Corpuscular Hemoglobin 28.8 pg (27.0-33.0); Mean Corpuscular Volume 87.2 fL (80.0-98.0); Mean Platelet Volume 10.8 fL (9.4-12.4); Monocytes Absolute Auto 0.4 X10*3/uL (0.1-1.2); Monocytes Percent Auto 1.5 % (2-11); Neutrophils Absolute Auto 23.4 x10*3/uL (2.0-8.3); Neutrophils Percent Auto 87.2 % (45-73); Platelet Count 269 X10*3/uL (160-400); Red Cell Distribution Width 16.8 % (11.0-16.0); SCAN SMEAR FLAG 1; White Blood Count 26.9 X10*3/uL (4.8-10.8)
[2023-11-30 06:22] LABS: Alanine Aminotransferase 136 U/L (0-40); Albumin Level 2.7 g/dL (3.5-5.0); Alkaline Phosphatase 109 U/L (39-117); Anion Gap 19 (12-20); Aspartate Amino Transferase 182 U/L (5-37); Bilirubin Total 3.2 mg/dL (0.0-1.0); Blood Urea Nitrogen 73 mg/dL (9-16); Carbon Dioxide 27 mmol/L (22-29); Chloride 109 mmol/L (96-108); Creatinine Clr Calc Pharmacy 47.6; Estimated Glomerular Filt Rate 34; Glucose Random 209 mg/dL (60-115); Magnesium 1.6 mg/dL (1.6-2.6); Phosphorus 2.5 mg/dL (2.7-4.5); Potassium 2.3 mmol/L (3.3-5.1); Sodium 153 mmol/L (135-145); Total Protein 6.4 g/dL (6.5-8.0)
[2023-11-30 06:24] LABS: NRBC Pct Auto 1.2 /100WBC (0.0-0.2)
[2023-11-30] MEDS: Potassium Chloride/H20 40 MEQ/100 ML PIGGYBACK 50 MEQ IV ×4 (06:39→21:54)
[2023-11-30 07:55] LABS: SLIDE REVIEW VERIFIED
[2023-11-30] MEDS: Albumin Human 25 % 100 ML IV ×3 (08:51→19:40)
[2023-11-30 09:36] LABS: Lipase 38 U/L (8-78)
[2023-11-30] MEDS: Collagenase Clostridium Hist. 30 GM TUBE 1 APPL TOPICAL (09:38)
[2023-11-30] MEDS: Potassium Phosphate/NS 15 MMOL/250 ML PLAST..BAG 62.5 MMOL IV (09:38)
[2023-11-30] MEDS: Piperacillin Sodium/Tazobactam 3.375 GM in 0.9 % Sodium Chloride 50 ML IV ×3 (10:35→21:43)
[2023-11-30] MEDS: Furosemide 200 MG in 0.9 % Sodium Chloride 80 ML IVCONT (10:37)
--- NOTE | 2023-11-30 10:46 | MHC.CLN ---
PT REQUIRE TPN FOR NUTRITION SUPPORT R/T PROLONGED NPO STATUS DISCUSSED AT ROUNDS WITH MD PLAN FOR PT TO GET MIDLINE PLACED REVIEWED LABS DISCUSSED WITH PHARM TPN TO START; RECOMMEND TPN AT 40ML/HR PROVIDES 682KCALS, 144G DEXTROSE, 48G TOTAL PROTEIN REPLETE LYTES NEEDED CHECK K+, MG, PHOS AND TRIGS SEE ALSO FULL CLINICAL NUTRITION ASSESSMENT
[2023-11-30] MEDS: Potassium Chloride/H20 40 MEQ/100 ML PIGGYBACK 100 MEQ IV ×2 (10:56→11:57)
--- NOTE | 2023-11-30 11:02 | PM.CCPN ---
Subjective Subjective Date of Service: 11/30/23 Interval History: 73-year-old gentleman with underlying aortic stenosis, AFib on anticoagulation admitted on 11/23/2023 with dizziness and weakness. On ER evaluation patient hypotensive with poor response to initial IV fluid resuscitation requiring pressor support. Also, with significant coagulopathy with INR greater than 26 acute renal failure, left lower extremity cellulitis with hospital course complicated by pancreatitis with large volume emesis with resultant aspiration and cardiac arrest with successful resuscitation after 7 minutes of CPR, intubated during the code extubated 11/29/2023. No events overnight. Critical Care Time (minutes): 60 Physical Exam Vital Signs: Vital Signs: Last Vital Signs Temp 99.3 F 11/30/23 10:00 Pulse 99 11/30/23 10:15 Resp 26 H 11/30/23 10:00 BP 103/50 L 11/30/23 10:37 Pulse Ox 90 L 11/30/23 10:00 O2 Del Method Room Air 11/30/23 10:00 O2 Flow Rate 1 11/30/23 09:00 FiO2 35 11/29/23 11:00 BMI result Body Mass Index 41.3 Const: General: no acute distress, alert and awake Eyes: Sclerae: sclerae normal EOM: EOMs intact bilaterally Neck: Neck: Yes no lymphadenopathy, Yes trachea midline and Yes supple Resp: Effort & Inspection: normal respiratory effort and no respiratory distress Auscultation: clear to auscultation bilaterally Cardio: Rate: tachycardic Rhythm: abnormal rhythm irregularly irregular Heart sounds: no gallops, no murmurs and no rubs GI: Palpation (GI): Soft to palpation and Other GI palpation findings present ( Nontender) Auscultation: normal bowel sounds Extrem: General: No clubbing, No cyanosis and Yes edema (2+ bilateral) Objective Data Labs 11/30/23 05:03 11/30/23 05:03 Labs: Laboratory Results - last 24 hr 11/28/23 11/29/23 11/29/23 05:09 11:29 16:00 WBC RBC Hgb Hct MCV MCH MCHC RDW Plt Count MPV Immature Gran % (Auto) Neut % (Auto) Lymph % (Auto) [place] % (Auto) Eos % (Auto) Baso % (Auto) Lymph # (Auto) [place] # (Auto) Eos # (Auto) Baso # (Auto) Abs Immat Gran (auto) Absolute Neuts (auto) Absolute Nucleated RBC Nucleated RBC % (auto) Smear Tech's Comments Smear Path Review SEE NOTE VBG pH VBG pCO2 VBG pO2 VBG HCO3 VBG O2 Saturation VBG Base Excess Sodium Potassium Chloride Carbon Dioxide Anion Gap BUN Creatinine Estim Creat Clear Calc Estimated GFR Random Glucose Calcium Phosphorus Magnesium Total Bilirubin AST ALT Alkaline Phosphatase Total Protein Albumin Lipase Urine Osmolality 363 L Ur Random Sodium 128.0 Random Vancomycin 14.2 L 11/29/23 11/30/23 11/30/23 18:21 05:03 05:06 WBC 26.9 H RBC 3.20 L Hgb 9.2 L Hct 27.9 L MCV 87.2 MCH 28.8 MCHC 33.0 RDW 16.8 H Plt Count 269 MPV 10.8 Immature Gran % (Auto) 3.4 H Neut % (Auto) 87.2 H Lymph % (Auto) 6.3 L [place] % (Auto) 1.5 L Eos % (Auto) 1.3 Baso % (Auto) 0.3 Lymph # (Auto) 1.7 [place] # (Auto) 0.4 Eos # (Auto) 0.4 Baso # (Auto) 0.1 Abs Immat Gran (auto) 0.91 H Absolute Neuts (auto) 23.4 H Absolute Nucleated RBC 0.330 H Nucleated RBC % (auto) 1.2 H Smear Tech's Comments VERIFIED Smear Path Review VBG pH 7.47 H VBG pCO2 48 VBG pO2 32 VBG HCO3 35 H VBG O2 Saturation 48.0 VBG Base Excess 10.7 Sodium 153 H 153 H Potassium 2.5 L* 2.3 L* Chloride 110 H 109 H Carbon Dioxide 27 27 Anion Gap 19 19 BUN 82 H 73 H Creatinine 2.23 H 1.96 H Estim Creat Clear Calc 42.9 47.6 Estimated GFR 29 34 Random Glucose 193 H 209 H Calcium 8.0 L 8.0 L Phosphorus 2.5 L Magnesium 1.6 Total Bilirubin 2.8 H 3.2 H AST 348 H 182 H ALT 172 H 136 H Alkaline Phosphatase 105 109 Total Protein 6.1 L 6.4 L Albumin 2.7 L 2.7 L Lipase 38 Urine Osmolality Ur Random Sodium Random Vancomycin Microbiology Microbiology Results: Microbiology 11/24/23 19:45 Leg Left Gram Stain - Final 11/24/23 19:45 Leg Left Routine Culture - Final Streptococcus pyogenes (Grp A) Serratia marcescens Stenotrophomonas maltophilia 11/24/23 19:45 Leg Right Gram Stain - Final 11/24/23 19:45 Leg Right Routine Culture - Final Enterococcus faecalis Acinetobacter baumannii Stenotrophomonas maltophilia 11/23/23 09:40 Blood - Venous Blood Culture - Final No growth after 5 days. 11/23/23 03:33 Blood - Venous Blood Culture - Preliminary Streptococcus pyogenes (Grp A) Progress Note: A&P Assessment and plan (1) Shock: Status: Acute (2) Chronic ulcer of leg: Status: Acute (3) Atrial fibrillation: Status: Chronic (4) Acute kidney injury: Status: Acute (5) Coagulopathy: Status: Acute (6) Severe aortic stenosis: Status: Acute (7) Acute pancreatitis: Status: Acute Plan Assessment: 73-year-old gentleman admitted with ARABELLA sepsis, coagulopathy, further complicated by aspiration and cardiac arrest Plan: Neuro: No acute issues. Cardiac: Shock, likely septic with likely skin/soft tissue source, continue to titrate off pressors as tolerated. Underlying AFib continue with rate control. Pulmonary: No acute issues. Renal: Acute kidney injury, improving. Non oliguric. Continue to monitor renal indices and urine output. Continue with diuresis. Endo: No acute issues. GI: NG tube still with significant. Start TPN. ID: Septic shock, skin/soft tissue source with multiple bacteria. Continue Zosyn. Heme/Onc: Coagulopathy, improved, INR therapeutic. Continue to monitor. Psych: No acute issues. Miscellaneous: No acute issues. Prophylaxis: INR therapeutic Diet: TPN Critical care time spent: 60 minutes Quality Stroke Does the patient have a stroke diagnosis?: No VTE Prior VTE?: No VTE Risk Level:: Medical - moderate - high VTE Device Contraindication: Treatment Not Tolerated VTE Drug Contraindication: N/A - Med Ordered
[2023-11-30] MEDS: Phytonadione (Vit K1) 5 MG in 0.9 % Sodium Chloride 50 ML 50.5 MG IV (12:20)
[2023-11-30] MEDS: Amiodarone HCL 900 MG in 0.9 % Sodium Chloride 500 ML 17.27 MG IVCONT (13:11)
--- NOTE | 2023-11-30 14:34 | MHC.CM.PN ---
Pt extubated on 11/28 after massive emesis event with likely aspiration and subsequent cardiac arrest: will have midline placed for TPN administration. No plans to transfer out of ICU today. SNF referrals updated. Pt will need PT and/or OT eval once medically appropriate. CM to follow.
[2023-11-30] MEDS: Phenylephrine HCL 100 MG in 0.9 % Sodium Chloride 250 ML 22.85 MG IVCONT (15:04)
[2023-11-30] MEDS: Digoxin 0.5 MG/2 ML AMPUL 0.25 MG IVPUSH ×3 (16:31→23:46)
[2023-11-30 18:57] LABS: Anion Gap 18 (12-20); Blood Urea Nitrogen 61 mg/dL (9-16); Calcium 8.4 mg/dL (8.4-10.2); Carbon Dioxide 30 mmol/L (22-29); Chloride 117 mmol/L (96-108); Estimated Glomerular Filt Rate 43; Glucose Random 166 mg/dL (60-115); Potassium 2.9 mmol/L (3.3-5.1); Sodium 162 mmol/L (135-145)
[2023-11-30] MEDS: Parenteral Nutrition 960 ML 40 ML IV (21:42)
[2023-12-01] VITALS (39 sets, daily range): BP systolic 74–139; BP diastolic 48–86; PULSE 85–125; RESP 19–39; TEMP 35.1–38.6; O2SAT 90–100; BMI 41.1
[2023-12-01] MEDS: Phenylephrine HCL 100 MG in 0.9 % Sodium Chloride 250 ML 22.85 MG IVCONT (01:45)
[2023-12-01] MEDS: Albuterol Sulfate (0.083%) 2.5 MG/3 ML VIAL.NEB INHALE (02:21)
[2023-12-01] MEDS: Albumin Human 25 % 100 ML IV (03:19)
[2023-12-01] MEDS: Piperacillin Sodium/Tazobactam 3.375 GM in 0.9 % Sodium Chloride 50 ML IV ×4 (04:23→21:54)
[2023-12-01] MEDS: HYDROmorphone HCl 0.5 MG/0.5 ML SYRINGE IVPUSH (04:46)
[2023-12-01 05:36] LABS: VBG Base Excess 11.8 mmol/L; VBG HCO3 34 mmol/L (22-26); VBG pCO2 38 mmHg; VBG pH 7.56 (7.32-7.43); VBG pO2 37 mmHg
[2023-12-01 05:47] LABS: Basophils Absolute Auto 0.1 X10*3/uL (0.0-0.2); Basophils Percent Auto 0.3 % (0-2); Eosinophils Absolute Auto 0.2 X10*3/uL (0.0-0.4); Hematocrit 25.7 % (42.0-52.0); Hemoglobin 8.2 g/dl (14.0-18.0); Imm Gran Pct Auto 2.8 % (0.0-0.4); Lymphocytes Absolute Auto 2.2 X10*3/uL (1.2-4.9); Lymphocytes Percent Auto 10.2 % (20-40); Mean Corpuscular HGB Conc 31.9 g/dl (31.0-36.0); Mean Corpuscular Hemoglobin 28.3 pg (27.0-33.0); Mean Corpuscular Volume 88.6 fL (80.0-98.0); Mean Platelet Volume 10.3 fL (9.4-12.4); Monocytes Absolute Auto 0.4 X10*3/uL (0.1-1.2); Monocytes Percent Auto 1.6 % (2-11); NRBC Pct Auto 1.4 /100WBC (0.0-0.2); Neutrophils Absolute Auto 18.1 x10*3/uL (2.0-8.3); Neutrophils Percent Auto 84.1 % (45-73); Platelet Count 301 X10*3/uL (160-400); Red Cell Distribution Width 16.8 % (11.0-16.0); White Blood Count 21.5 X10*3/uL (4.8-10.8)
[2023-12-01 05:52] LABS: INTERNATIONAL NORM RATIO 1.6 (0.9-1.1); Prothrombin Time 19.4 SEC (11.1-13.3)
[2023-12-01] MEDS: Pantoprazole Sodium 40 MG/10 ML VIAL IVPUSH (06:02)
[2023-12-01 06:11] LABS: Alanine Aminotransferase 68 U/L (0-40); Albumin Level 3.5 g/dL (3.5-5.0); Alkaline Phosphatase 77 U/L (39-117); Anion Gap 20 (12-20); Aspartate Amino Transferase 57 U/L (5-37); Bilirubin Total 3.1 mg/dL (0.0-1.0); Blood Urea Nitrogen 58 mg/dL (9-16); Calcium 8.7 mg/dL (8.4-10.2); Carbon Dioxide 27 mmol/L (22-29); Chloride 120 mmol/L (96-108); Creatinine Clr Calc Pharmacy 59.3; Estimated Glomerular Filt Rate 44; Glucose Random 239 mg/dL (60-115); Magnesium 1.7 mg/dL (1.6-2.6); Phosphorus 1.4 mg/dL (2.7-4.5); Potassium 3.2 mmol/L (3.3-5.1); Sodium 164 mmol/L (135-145); Total Protein 6.9 g/dL (6.5-8.0)
[2023-12-01 06:17] LABS: Venous Blood Gas Refer to POC result
[2023-12-01 06:22] LABS: MANUAL DIFF FLAG SCAN; SLIDE REVIEW VERIFIED
[2023-12-01] MEDS: Potassium Phosphate/NS 15 MMOL/250 ML PLAST..BAG 62.5 MMOL IV ×2 (06:32→10:37)
[2023-12-01] MEDS: 0.9 % Sodium Chloride Flush 3 ML SYRINGE IVFLUSH ×2 (07:30→15:03)
[2023-12-01] MEDS: Potassium Chloride/H20 40 MEQ/100 ML PIGGYBACK 100 MEQ IV (07:30)
[2023-12-01] MEDS: Dextrose 5 % 1,000 ML 250 ML IVCONT (08:43)
[2023-12-01] MEDS: Bumetanide 1 MG/4 ML VIAL IVPUSH (08:44)
[2023-12-01] MEDS: Collagenase Clostridium Hist. 30 GM TUBE 1 APPL TOPICAL (08:46)
--- NOTE | 2023-12-01 09:41 | P.PNCC_ITS ---
Subjective Subjective Date of Service: 12/01/23 Interval History: 73-year-old gentleman with underlying aortic stenosis, AFib on anticoagulation admitted on 11/23/2023 with dizziness and weakness. On ER evaluation patient hypotensive with poor response to initial IV fluid resuscitation requiring pressor support. Also, with significant coagulopathy with INR greater than 26 acute renal failure, left lower extremity cellulitis with hospital course complicated by pancreatitis with large volume emesis with resultant aspiration and cardiac arrest with successful resuscitation after 7 minutes of CPR, intubated during the code extubated 11/29/2023. No events overnight. G-tube output is improving. Pressor requirements are also improving. Critical Care Time (minutes): 60 Physical Exam 2 Vital Signs: Vital Signs: Last Vital Signs Temp 99.9 F 12/01/23 09:00 Pulse 116 H 12/01/23 09:00 Resp 30 H 12/01/23 09:00 BP 130/70 12/01/23 09:00 Pulse Ox 97 12/01/23 09:00 O2 Del Method Nasal Cannula 12/01/23 09:00 O2 Flow Rate 4 12/01/23 09:00 FiO2 35 11/29/23 11:00 BMI result Body Mass Index 41.1 Const: General: no acute distress, awake and confusion O rientation/consciousness: confusion Eyes: Sclerae: sclerae normal EOM: EOMs intact bilaterally Neck: Neck: Yes no lymphadenopathy, Yes trachea midline and Yes supple Resp: Effort & Inspection: normal respiratory effort and no respiratory distress Auscultation: crackles (Bilateral) Cardio: Rate: tachycardic Rhythm: regular rhythm Heart sounds: no gallops, no murmurs and no rubs GI: Palpation (GI): Soft to palpation and Other GI palpation findings present ( Nontender) Auscultation: normal bowel sounds Neuro: General: confusion Extrem: General: No clubbing, No cyanosis and Yes edema (1+ bilateral) Objective Data Labs 12/01/23 05:24 12/01/23 05:24 Labs: Laboratory Results - last 24 hr 11/30/23 12/01/23 12/01/23 18:02 05:24 05:28 WBC 21.5 H RBC 2.90 L Hgb 8.2 L Hct 25.7 L MCV 88.6 MCH 28.3 MCHC 31.9 RDW 16.8 H Plt Count 301 MPV 10.3 Immature Gran % (Auto) 2.8 H Neut % (Auto) 84.1 H Lymph % (Auto) 10.2 L [place] % (Auto) 1.6 L Eos % (Auto) 1.0 Baso % (Auto) 0.3 Lymph # (Auto) 2.2 [place] # (Auto) 0.4 Eos # (Auto) 0.2 Baso # (Auto) 0.1 Abs Immat Gran (auto) 0.60 H Absolute Neuts (auto) 18.1 H Absolute Nucleated RBC 0.310 H Nucleated RBC % (auto) 1.4 H Smear Tech's Comments VERIFIED PT 19.4 H D INR 1.6 H VBG pH 7.56 H VBG pCO2 38 VBG pO2 37 VBG HCO3 34 H VBG O2 Saturation 60.0 VBG Base Excess 11.8 Sodium 162 H* 164 H* Potassium 2.9 L* D 3.2 L Chloride 117 H 120 H Carbon Dioxide 30 H 27 Anion Gap 18 20 BUN 61 H 58 H Creatinine 1.58 H 1.57 H Estim Creat Clear Calc 59.0 59.3 Estimated GFR 43 44 Random Glucose 166 H 239 H Calcium 8.4 8.7 Phosphorus 1.4 L Magnesium 1.7 Total Bilirubin 3.1 H AST 57 H ALT 68 H Alkaline Phosphatase 77 Total Protein 6.9 Albumin 3.5 Microbiology Microbiology Results: Microbiology 11/24/23 19:45 Leg Left Gram Stain - Final 11/24/23 19:45 Leg Left Routine Culture - Final Streptococcus pyogenes (Grp A) Serratia marcescens Stenotrophomonas maltophilia 11/24/23 19:45 Leg Right Gram Stain - Final 11/24/23 19:45 Leg Right Routine Culture - Final Enterococcus faecalis Acinetobacter baumannii Stenotrophomonas maltophilia 11/23/23 09:40 Blood - Venous Blood Culture - Final No growth after 5 days. 11/23/23 03:33 Blood - Venous Blood Culture - Preliminary Streptococcus pyogenes (Grp A) Progress Note: A&P Assessment and plan (1) Chronic ulcer of leg: Status: Acute (2) Shock: Status: Acute (3) Atrial fibrillation: Status: Chronic (4) Acute kidney injury: Status: Acute (5) Acute pancreatitis: Status: Acute Plan Assessment: 73-year-old gentleman admitted with ARABELLA sepsis, coagulopathy, further complicated by aspiration and cardiac arrest Plan: Neuro: No acute issues. Cardiac: Shock, likely septic with likely skin/soft tissue source, continue to titrate off pressors as tolerated. Underlying AFib continue with rate control. Pulmonary: No acute issues. Renal: Acute kidney injury, improving. Non oliguric. Continue to monitor renal indices and urine output. Continue with diuresis. Hypernatremia, re- started on D5. Endo: No acute issues. GI: NG tube still with significant. Start TPN. ID: Septic shock, skin/soft tissue source with multiple bacteria. Continue Zosyn. Heme/Onc: Coagulopathy, improved, INR therapeutic. Continue to monitor. Psych: No acute issues. Miscellaneous: No acute issues. Prophylaxis: heparin Diet: TPN Critical care time spent: 60 minutes Quality Stroke Does the patient have a stroke diagnosis?: No VTE Prior VTE?: No VTE Risk Level:: Medical - moderate - high VTE Device Contraindication: Treatment Not Tolerated VTE Drug Contraindication: N/A - Med Ordered
--- NOTE | 2023-12-01 10:02 | MHC.CLN ---
F/U PT REQUIRE TPN FOR NUTRITION SUPPORT R/T PROLONGED NPO STATUS MIDLINE PLACED REVIEWED LABS-NOTED D5W RE-STARTED DISCUSSED WITH PHARM RECOMMEND INCREASING TPN TO 60ML/HR TO PROVIDE 1022KCALS, 216G DEXTROSE, 72G TOTAL PROTEIN REPLETE LYTES NEEDED CHECK TRIGS
[2023-12-01] MEDS: Heparin Sodium,Porcine 5,000 UNIT/ML VIAL 5000 UNIT SUBCUT ×2 (11:15→18:03)
[2023-12-01] MEDS: Amiodarone HCL 900 MG in 0.9 % Sodium Chloride 500 ML 17.27 MG IVCONT (12:45)
[2023-12-01] MEDS: propofoL 1,000 MG/100 ML VIAL 24.05 MG IVCONT (13:32)
--- NOTE | 2023-12-01 13:39 | W.PM.CCHP ---
Procedures Date of Service Date of Service: 12/01/23 Intubation Intubation Comments: Patient with ongoing aspirations, tachypnea, and worsening hypoxia, requiring re-intubation with 7.5 cuffed ET tube under glide scope guidance with no immediate complications. X-ray for ET tube position is pending. Consent for Procedure: Elective - informed consent obtained Sedative: propofol Mg given: 100
[2023-12-01] MEDS: propofoL 200 MG/20 ML VIAL 100 MG IVPUSH (13:42)
[2023-12-01] MEDS: Chlorhexidine Gluc Oral Rinse 15 ML MOUTHWASH BUCCAL ×2 (13:52→21:41)
[2023-12-01] MEDS: Phenylephrine HCL 100 MG in 0.9 % Sodium Chloride 250 ML 34.28 MG IVCONT ×2 (15:03→21:38)
--- NOTE | 2023-12-01 15:52 | PC.NURSE ---
1100 - pt experiencing respiratory distress: HR 110-120's, RR maintaining mid 30's, even & labored, O2 91-94% on 4L NC, deep suctioning provider with return of thick white sputum; pt has no complaints of pain, SOB, nausea; ngt clamped; A&O x3; MD at bedside 1245 - pt experiencing worsening respiratory distress: RR maintaining low 40's, accessory muscle use, O2 down to 83% on 4L NC w/ quick recovery to 91%; pt continued to have no complaints; pt A&O x2, confused on place; ngt remains clamped; MD at bedside - concern for aspiration per MD 1310 - family at bedside w/ MD for discussion of goals of care 1330 - patient intubated 7.5 ett, 26cm @ lip; Prop 100mg IVP and gtt administered per EMAR; Leif gtt restarted for MAPs maintaining <65; plan for abd ct w/ oral contrast 1500 - administration of oral contrast started - plan for 225cc [id number] [id number] per geoscience technician; Abd CT scheduled for 1730
[2023-12-01] MEDS: Barium Sulfate Oral (Berry) 450 ML ORAL.SUSP 900 ML PO (15:58)
[2023-12-01] MEDS: propofoL 1,000 MG/100 ML VIAL 32.06 MG IVCONT ×3 (16:23→22:49)
[2023-12-01 20:57] LABS: Albumin Level 3.1 g/dL (3.5-5.0); Anion Gap 16 (12-20); Blood Urea Nitrogen 51 mg/dL (9-16); Calcium 8.4 mg/dL (8.4-10.2); Carbon Dioxide 31 mmol/L (22-29); Chloride 121 mmol/L (96-108); Creatinine Clr Calc Pharmacy 71.1; Estimated Glomerular Filt Rate 54; Glucose Random 248 mg/dL (60-115); Magnesium 1.6 mg/dL (1.6-2.6); Phosphorus 2.6 mg/dL (2.7-4.5); Potassium 3.5 mmol/L (3.3-5.1); Sodium 164 mmol/L (135-145)
[2023-12-01] MEDS: Parenteral Nutrition 1,440 ML 60 ML IV (21:43)
[2023-12-01] MEDS: Dextrose 5 % 1,000 ML 50 ML IVCONT (21:51)
[2023-12-01 23:26] LABS: Glucose, Whole Blood 222 mg/dL (60-115)
[2023-12-01] MEDS: Insulin Lispro 100 UNIT/ML 3 ML VIAL SUBCUT (23:59)
[2023-12-02] VITALS (50 sets, daily range): BP systolic 62–151; BP diastolic 36–92; PULSE 76–104; RESP 12–30; TEMP 35–38.5; O2SAT 93–100; BMI 40.6
[2023-12-02] MEDS: 0.9 % Sodium Chloride Flush 3 ML SYRINGE IVFLUSH ×3 (00:20→16:21)
[2023-12-02] MEDS: propofoL 1,000 MG/100 ML VIAL 32.06 MG IVCONT ×4 (02:02→10:51)
[2023-12-02] MEDS: Heparin Sodium,Porcine 5,000 UNIT/ML VIAL 5000 UNIT SUBCUT ×3 (03:17→17:57)
[2023-12-02] MEDS: Piperacillin Sodium/Tazobactam 3.375 GM in 0.9 % Sodium Chloride 50 ML IV ×4 (03:18→21:37)
[2023-12-02] MEDS: Phenylephrine HCL 100 MG in 0.9 % Sodium Chloride 250 ML 34.28 MG IVCONT (03:30)
[2023-12-02 05:36] LABS: VBG Base Excess 11.4 mmol/L; VBG HCO3 34 mmol/L (22-26); VBG pCO2 41 mmHg; VBG pH 7.53 (7.32-7.43); VBG pO2 43 mmHg
[2023-12-02 05:53] LABS: MANUAL DIFF FLAG NO
[2023-12-02 05:55] LABS: Venous Blood Gas Refer to POC result
[2023-12-02 05:55] LABS: Basophils Absolute Auto 0.1 X10*3/uL (0.0-0.2); Basophils Percent Auto 0.3 % (0-2); Eosinophils Percent Auto 5.3 % (0-4); Hematocrit 26.8 % (42.0-52.0); Hemoglobin 8.2 g/dl (14.0-18.0); Imm Gran Abs Auto 0.26 X10*3/uL (0.00-0.03); Imm Gran Pct Auto 1.4 % (0.0-0.4); Lymphocytes Absolute Auto 2.9 X10*3/uL (1.2-4.9); Lymphocytes Percent Auto 15.2 % (20-40); Mean Corpuscular HGB Conc 30.6 g/dl (31.0-36.0); Mean Corpuscular Hemoglobin 28.1 pg (27.0-33.0); Mean Corpuscular Volume 91.8 fL (80.0-98.0); Mean Platelet Volume 10.6 fL (9.4-12.4); Monocytes Absolute Auto 0.4 X10*3/uL (0.1-1.2); Monocytes Percent Auto 2.1 % (2-11); Neutrophils Absolute Auto 14.2 x10*3/uL (2.0-8.3); Neutrophils Percent Auto 75.7 % (45-73); Platelet Count 321 X10*3/uL (160-400); Red Blood Count 2.92 X10*6/uL (4.60-5.80); Red Cell Distribution Width 17.9 % (11.0-16.0); White Blood Count 18.8 X10*3/uL (4.8-10.8)
[2023-12-02 06:00] LABS: NRBC Pct Auto 1.8 /100WBC (0.0-0.2)
[2023-12-02 06:12] LABS: Alanine Aminotransferase 43 U/L (0-40); Albumin Level 2.8 g/dL (3.5-5.0); Alkaline Phosphatase 75 U/L (39-117); Anion Gap 15 (12-20); Aspartate Amino Transferase 39 U/L (5-37); Bilirubin Total 1.9 mg/dL (0.0-1.0); Blood Urea Nitrogen 47 mg/dL (9-16); Calcium 8.2 mg/dL (8.4-10.2); Carbon Dioxide 28 mmol/L (22-29); Chloride 119 mmol/L (96-108); Creatinine Clr Calc Pharmacy 69.6; Estimated Glomerular Filt Rate 53; Glucose Random 279 mg/dL (60-115); Magnesium 1.8 mg/dL (1.6-2.6); Phosphorus 2.2 mg/dL (2.7-4.5); Potassium 3.3 mmol/L (3.3-5.1); Sodium 159 mmol/L (135-145); Total Protein 6.6 g/dL (6.5-8.0); Triglycerides 154 mg/dL (<150)
[2023-12-02] MEDS: Insulin Lispro 100 UNIT/ML 3 ML VIAL SUBCUT ×3 (06:18→17:56)
[2023-12-02] MEDS: Albumin Human 25 % 100 ML IV ×4 (07:35→11:51)
[2023-12-02] MEDS: Bumetanide 1 MG/4 ML VIAL IVPUSH ×2 (07:51→16:21)
[2023-12-02] MEDS: Chlorhexidine Gluc Oral Rinse 15 ML MOUTHWASH BUCCAL ×3 (07:51→21:30)
[2023-12-02] MEDS: Potassium Chloride/H20 40 MEQ/100 ML PIGGYBACK 100 MEQ IV (07:59)
[2023-12-02] MEDS: Collagenase Clostridium Hist. 30 GM TUBE 1 APPL TOPICAL (08:00)
[2023-12-02] MEDS: Potassium Phosphate/NS 15 MMOL/250 ML PLAST..BAG 62.5 MMOL IV ×2 (09:39→12:49)
--- NOTE | 2023-12-02 10:48 | MHC.CLN ---
F/U DISCUSSED AT ROUNDS WITH MD THOMAS D/C TODAY PT TO START TRICKLE FEEDS REVIEWED LABS PT TO RECEIVE PROMOTE TF AT 20ML/HR PROVIDES 480KCALS (1326KCALS WITH SEDATION), 30G PROTEIN, 403ML FREE WATER MONITOR TOLERANCE AND LYTES
--- NOTE | 2023-12-02 11:21 | PM.CCPN ---
Subjective Subjective Date of Service: 12/02/23 Interval History: 73-year-old gentleman with underlying aortic stenosis, AFib on anticoagulation admitted on 11/23/2023 with dizziness and weakness. On ER evaluation patient hypotensive with poor response to initial IV fluid resuscitation requiring pressor support. Also, with significant coagulopathy with INR greater than 26 acute renal failure, left lower extremity cellulitis with hospital course complicated by pancreatitis with large volume emesis with resultant aspiration and cardiac arrest with successful resuscitation after 7 minutes of CPR, intubated during the code extubated 11/29/2023. On 12/01/2023 with pulmonary aspirations requiring re-intubation. CT abdomen/pelvis with low-grade pancreatitis and duodenal narrowing. No events overnight. Critical Care Time (minutes): 60 Physical Exam Vital Signs: Vital Signs: Last Vital Signs Temp 97.7 F 12/02/23 08:00 Pulse 80 12/02/23 11:00 Resp 25 H 12/02/23 11:00 BP 98/50 L 12/02/23 11:00 Pulse Ox 100 12/02/23 11:00 O2 Del Method Mechanical Ventil ation 12/02/23 11:00 O2 Flow Rate 4 12/01/23 13:00 FiO2 30 12/02/23 11:18 BMI result Body Mass Index 40.6 Const: General: no acute distress and other (Sedated on the vent) Eyes: Sclerae: sclerae normal EOM: EOMs intact bilaterally Neck: Neck: Yes no lymphadenopathy, Yes trachea midline and Yes supple Resp: Auscultation: crackles (Bilateral) Cardio: Rate: regular rate Rhythm: regular rhythm Heart sounds: no gallops, no murmurs and no rubs GI: Palpation (GI): Soft to palpation and Other GI palpation findings present ( Nontender) Auscultation: normal bowel sounds Extrem: General: No clubbing, No cyanosis and Yes edema (1+ bilateral) Objective Data Labs 12/02/23 05:19 12/02/23 05:19 Labs: Laboratory Results - last 24 hr 12/01/23 12/01/23 12/02/23 19:58 23:15 05:19 WBC 18.8 H RBC 2.92 L Hgb 8.2 L Hct 26.8 L MCV 91.8 MCH 28.1 MCHC 30.6 L RDW 17.9 H Plt Count 321 MPV 10.6 Immature Gran % (Auto) 1.4 H Neut % (Auto) 75.7 H Lymph % (Auto) 15.2 L [place] % (Auto) 2.1 Eos % (Auto) 5.3 H Baso % (Auto) 0.3 Lymph # (Auto) 2.9 [place] # (Auto) 0.4 Eos # (Auto) 1.0 H Baso # (Auto) 0.1 Abs Immat Gran (auto) 0.26 H Absolute Neuts (auto) 14.2 H Absolute Nucleated RBC 0.330 H Nucleated RBC % (auto) 1.8 H Hold Purple Top SEE NOTE VBG pH VBG pCO2 VBG pO2 VBG HCO3 VBG O2 Saturation VBG Base Excess Sodium 164 H* 159 H Potassium 3.5 3.3 Chloride 121 H 119 H Carbon Dioxide 31 H 28 Anion Gap 16 15 BUN 51 H 47 H Creatinine 1.31 1.33 Estim Creat Clear Calc 71.1 69.6 Estimated GFR 54 53 POC Glucose 222 H Random Glucose 248 H 279 H Calcium 8.4 8.2 L Phosphorus 2.6 L 2.2 L Magnesium 1.6 1.8 Total Bilirubin 1.9 H AST 39 H ALT 43 H Alkaline Phosphatase 75 Total Protein 6.6 Albumin 3.1 L 2.8 L Triglycerides 154 H 12/02/23 05:28 WBC RBC Hgb Hct MCV MCH MCHC RDW Plt Count MPV Immature Gran % (Auto) Neut % (Auto) Lymph % (Auto) [place] % (Auto) Eos % (Auto) Baso % (Auto) Lymph # (Auto) [place] # (Auto) Eos # (Auto) Baso # (Auto) Abs Immat Gran (auto) Absolute Neuts (auto) Absolute Nucleated RBC Nucleated RBC % (auto) Hold Purple Top VBG pH 7.53 H VBG pCO2 41 VBG pO2 43 VBG HCO3 34 H VBG O2 Saturation 70.0 VBG Base Excess 11.4 Sodium Potassium Chloride Carbon Dioxide Anion Gap BUN Creatinine Estim Creat Clear Calc Estimated GFR POC Glucose Random Glucose Calcium Phosphorus Magnesium Total Bilirubin AST ALT Alkaline Phosphatase Total Protein Albumin Triglycerides Microbiology Microbiology Results: Microbiology 11/23/23 03:33 Blood - Venous Blood Culture - Final Streptococcus pyogenes (Grp A) 11/24/23 19:45 Leg Left Gram Stain - Final 11/24/23 19:45 Leg Left Routine Culture - Final Streptococcus pyogenes (Grp A) Serratia marcescens Stenotrophomonas maltophilia 11/24/23 19:45 Leg Right Gram Stain - Final 11/24/23 19:45 Leg Right Routine Culture - Final Enterococcus faecalis Acinetobacter baumannii Stenotrophomonas maltophilia 11/23/23 09:40 Blood - Venous Blood Culture - Final No growth after 5 days. Progress Note: A&P Assessment and plan (1) Acute pancreatitis: Status: Acute (2) Chronic ulcer of leg: Status: Acute (3) Atrial fibrillation: Status: Chronic (4) Pulmonary aspiration: Status: Acute (5) Acute kidney injury: Status: Acute (6) Shock: Status: Acute Plan Assessment: 73-year-old gentleman admitted with ARABELLA sepsis, coagulopathy, further complicated by aspiration and cardiac arrest Plan: Neuro: No acute issues. Cardiac: Shock, likely septic with likely skin/soft tissue source, continue to titrate off pressors as tolerated. Underlying AFib continue with rate control. Pulmonary: Acute hypoxic respiratory failure secondary to pulmonary aspiration requiring re-intubation and ventilatory support, continue to titrate off as tolerated Renal: Acute kidney injury, improving. Non oliguric. Continue to monitor renal indices and urine output. Continue with diuresis. Hypernatremia, improved on D5. Endo: No acute issues. GI: NG tube still with decreased output. Stop TPN, start trophic feeds. Pancreatitis on abdominal CT. ID: Septic shock, skin/soft tissue source with multiple bacteria. Continue Zosyn. Heme/Onc: Coagulopathy, improved, INR therapeutic. Continue to monitor. Psych: No acute issues. Miscellaneous: No acute issues. Prophylaxis: heparin, ppi Diet: Tube feeds Critical care time spent: 60 minutes Quality Stroke Does the patient have a stroke diagnosis?: No VTE Prior VTE?: No VTE Risk Level:: Medical - moderate - high VTE Device Contraindication: Treatment Not Tolerated VTE Drug Contraindication: N/A - Med Ordered
[2023-12-02 11:52] LABS: Glucose, Whole Blood 214 mg/dL (60-115)
[2023-12-02] MEDS: Amiodarone HCL 900 MG in 0.9 % Sodium Chloride 500 ML 17.27 MG IVCONT (12:47)
[2023-12-02] MEDS: Phenylephrine HCL 100 MG in 0.9 % Sodium Chloride 250 ML 11.43 MG IVCONT (12:49)
[2023-12-02] MEDS: propofoL 1,000 MG/100 ML VIAL 24.05 MG IVCONT (13:59)
--- NOTE | 2023-12-02 14:43 | MHC.CM.PN ---
PT REMAINS ON VENTILATORY SUPPORT IN ICU. CM WILL CONTINUE TO FOLLOW FOR DC PLAN.
[2023-12-02] MEDS: Dextrose 5 % 1,000 ML 50 ML IVCONT (17:55)
[2023-12-02 18:13] LABS: Glucose, Whole Blood 155 mg/dL (60-115)
[2023-12-02] MEDS: propofoL 1,000 MG/100 ML VIAL 16.03 MG IVCONT (18:17)
[2023-12-02 20:22] LABS: Albumin Level 3.4 g/dL (3.5-5.0); Anion Gap 15 (12-20); Blood Urea Nitrogen 42 mg/dL (9-16); Calcium 8.2 mg/dL (8.4-10.2); Carbon Dioxide 29 mmol/L (22-29); Chloride 120 mmol/L (96-108); Creatinine Clr Calc Pharmacy 77.1; Estimated Glomerular Filt Rate 60; Glucose Random 180 mg/dL (60-115); Magnesium 1.5 mg/dL (1.6-2.6); Phosphorus 2.3 mg/dL (2.7-4.5); Potassium 3.3 mmol/L (3.3-5.1); Sodium 161 mmol/L (135-145)
[2023-12-02 23:55] LABS: Glucose, Whole Blood 145 mg/dL (60-115)
[2023-12-03] VITALS (34 sets, daily range): BP systolic 86–130; BP diastolic 37–74; PULSE 74–125; RESP 13–45; TEMP 34.9–38.8; O2SAT 90–100; BMI 40.0
[2023-12-03] MEDS: 0.9 % Sodium Chloride Flush 3 ML SYRINGE IVFLUSH ×4 (00:11→22:24)
[2023-12-03] MEDS: propofoL 1,000 MG/100 ML VIAL 16.03 MG IVCONT ×2 (00:55→06:17)
[2023-12-03] MEDS: Heparin Sodium,Porcine 5,000 UNIT/ML VIAL 5000 UNIT SUBCUT ×3 (03:59→18:10)
[2023-12-03] MEDS: Piperacillin Sodium/Tazobactam 3.375 GM in 0.9 % Sodium Chloride 50 ML IV ×4 (04:31→22:20)
[2023-12-03 05:26] LABS: VBG Base Excess 10.1 mmol/L; VBG HCO3 32 mmol/L (22-26); VBG pCO2 36 mmHg; VBG pH 7.56 (7.32-7.43); VBG pO2 35 mmHg
[2023-12-03 05:41] LABS: MANUAL DIFF FLAG NO
[2023-12-03 05:43] LABS: Basophils Percent Auto 0.2 % (0-2); Eosinophils Absolute Auto 0.6 X10*3/uL (0.0-0.4); Eosinophils Percent Auto 5.4 % (0-4); Hematocrit 24.2 % (42.0-52.0); Hemoglobin 7.4 g/dl (14.0-18.0); Imm Gran Abs Auto 0.06 X10*3/uL (0.00-0.03); Imm Gran Pct Auto 0.5 % (0.0-0.4); Lymphocytes Absolute Auto 1.6 X10*3/uL (1.2-4.9); Lymphocytes Percent Auto 13.8 % (20-40); Mean Corpuscular HGB Conc 30.6 g/dl (31.0-36.0); Mean Corpuscular Hemoglobin 28.4 pg (27.0-33.0); Mean Corpuscular Volume 92.7 fL (80.0-98.0); Monocytes Absolute Auto 0.2 X10*3/uL (0.1-1.2); Monocytes Percent Auto 1.9 % (2-11); Neutrophils Absolute Auto 9.2 x10*3/uL (2.0-8.3); Neutrophils Percent Auto 78.2 % (45-73); Platelet Count 231 X10*3/uL (160-400); Red Blood Count 2.61 X10*6/uL (4.60-5.80); Red Cell Distribution Width 18.3 % (11.0-16.0); White Blood Count 11.8 X10*3/uL (4.8-10.8)
[2023-12-03] MEDS: Omeprazole/Na Bicarb Oral Susp 20 MG/10 ML UD Cup 40 MG PO (05:43)
[2023-12-03 05:47] LABS: Venous Blood Gas Refer to POC result
[2023-12-03 05:51] LABS: NRBC Pct Auto 1.1 /100WBC (0.0-0.2)
[2023-12-03 05:58] LABS: Albumin Level 3.1 g/dL (3.5-5.0); Anion Gap 15 (12-20); Blood Urea Nitrogen 42 mg/dL (9-16); Carbon Dioxide 27 mmol/L (22-29); Chloride 120 mmol/L (96-108); Creatinine Clr Calc Pharmacy 77.1; Estimated Glomerular Filt Rate 60; Glucose Random 210 mg/dL (60-115); Magnesium 1.5 mg/dL (1.6-2.6); Phosphorus 2.2 mg/dL (2.7-4.5); Potassium 3.2 mmol/L (3.3-5.1); Sodium 159 mmol/L (135-145)
[2023-12-03 06:00] LABS: Glucose, Whole Blood 189 mg/dL (60-115)
[2023-12-03] MEDS: Insulin Lispro 100 UNIT/ML 3 ML VIAL SUBCUT ×2 (06:22→12:16)
[2023-12-03] MEDS: Potassium Chloride Packet 20 MEQ PACKET 40 MEQ PO (06:25)
[2023-12-03] MEDS: Magnesium Sulfate/H2O 2 GM/50 ML PIGGYBACK IV (06:25)
[2023-12-03] MEDS: Amiodarone HCL 200 MG TABLET 400 MG PO ×2 (08:47→20:30)
[2023-12-03] MEDS: Sodium,Potassium Phosphates POWD.PACK 2 PACKET PO (08:47)
[2023-12-03] MEDS: Chlorhexidine Gluc Oral Rinse 15 ML MOUTHWASH BUCCAL (08:47)
[2023-12-03] MEDS: Albumin Human 25 % 100 ML IV ×3 (08:48→19:59)
[2023-12-03] MEDS: Bumetanide 1 MG/4 ML VIAL IVPUSH ×2 (08:48→16:14)
[2023-12-03] MEDS: Collagenase Clostridium Hist. 30 GM TUBE 1 APPL TOPICAL (09:06)
--- NOTE | 2023-12-03 09:21 | PM.CCPN ---
Subjective Subjective Date of Service: 12/03/23 Interval History: 73-year-old gentleman with underlying aortic stenosis, AFib on anticoagulation admitted on 11/23/2023 with dizziness and weakness. On ER evaluation patient hypotensive with poor response to initial IV fluid resuscitation requiring pressor support. Also, with significant coagulopathy with INR greater than 26 acute renal failure, left lower extremity cellulitis with hospital course complicated by pancreatitis with large volume emesis with resultant aspiration and cardiac arrest with successful resuscitation after 7 minutes of CPR, intubated during the code extubated 11/29/2023. On 12/01/2023 with pulmonary aspirations requiring re-intubation. CT abdomen/pelvis with low-grade pancreatitis and duodenal narrowing. No events overnight. Critical Care Time (minutes): 60 Physical Exam Vital Signs: Vital Signs: Last Vital Signs Temp 100.4 F 12/03/23 09:00 Pulse 76 12/03/23 09:07 Resp 28 H 12/03/23 09:00 BP 93/50 L 12/03/23 09:07 Pulse Ox 100 12/03/23 09:00 O2 Del Method Mechanical Ventil ation 12/03/23 09:00 O2 Flow Rate 30 12/02/23 19:00 FiO2 30 12/03/23 09:00 BMI result Body Mass Index 40.0 Const: General: no acute distress and other (sedated on the vent) Eyes: Sclerae: sclerae normal EOM: EOMs intact bilaterally Neck: Neck: Yes no lymphadenopathy, Yes trachea midline and Yes supple Resp: Auscultation: clear to auscultation bilaterally Cardio: Rate: regular rate Rhythm: regular rhythm Heart sounds: no gallops, no murmurs and no rubs GI: Palpation (GI): Soft to palpation and Other GI palpation findings present ( Nontender) Auscultation: normal bowel sounds Extrem: General: No clubbing, No cyanosis and Yes edema (1+ bilateral) Objective Data Labs 12/03/23 05:08 12/03/23 05:08 Labs: Laboratory Results - last 24 hr 12/02/23 12/02/23 12/02/23 11:46 17:36 19:37 WBC RBC Hgb Hct MCV MCH MCHC RDW Plt Count MPV Immature Gran % (Auto) Neut % (Auto) Lymph % (Auto) [place] % (Auto) Eos % (Auto) Baso % (Auto) Lymph # (Auto) [place] # (Auto) Eos # (Auto) Baso # (Auto) Abs Immat Gran (auto) Absolute Neuts (auto) Absolute Nucleated RBC Nucleated RBC % (auto) VBG pH VBG pCO2 VBG pO2 VBG HCO3 VBG O2 Saturation VBG Base Excess Sodium 161 H* Potassium 3.3 Chloride 120 H Carbon Dioxide 29 Anion Gap 15 BUN 42 H Creatinine 1.20 Estim Creat Clear Calc 77.1 Estimated GFR 60 POC Glucose 214 H 155 H Random Glucose 180 H Calcium 8.2 L Phosphorus 2.3 L Magnesium 1.5 L Albumin 3.4 L 12/02/23 12/03/23 12/03/23 23:46 05:08 05:17 WBC 11.8 H RBC 2.61 L Hgb 7.4 L Hct 24.2 L MCV 92.7 MCH 28.4 MCHC 30.6 L RDW 18.3 H Plt Count 231 D MPV 11.0 Immature Gran % (Auto) 0.5 H Neut % (Auto) 78.2 H Lymph % (Auto) 13.8 L [place] % (Auto) 1.9 L Eos % (Auto) 5.4 H Baso % (Auto) 0.2 Lymph # (Auto) 1.6 [place] # (Auto) 0.2 Eos # (Auto) 0.6 H Baso # (Auto) 0.0 Abs Immat Gran (auto) 0.06 H Absolute Neuts (auto) 9.2 H Absolute Nucleated RBC 0.130 H Nucleated RBC % (auto) 1.1 H VBG pH 7.56 H VBG pCO2 36 VBG pO2 35 VBG HCO3 32 H VBG O2 Saturation 57.0 VBG Base Excess 10.1 Sodium 159 H Potassium 3.2 L Chloride 120 H Carbon Dioxide 27 Anion Gap 15 BUN 42 H Creatinine 1.20 Estim Creat Clear Calc 77.1 Estimated GFR 60 POC Glucose 145 H Random Glucose 210 H Calcium 8.0 L Phosphorus 2.2 L Magnesium 1.5 L Albumin 3.1 L 12/03/23 05:54 WBC RBC Hgb Hct MCV MCH MCHC RDW Plt Count MPV Immature Gran % (Auto) Neut % (Auto) Lymph % (Auto) [place] % (Auto) Eos % (Auto) Baso % (Auto) Lymph # (Auto) [place] # (Auto) Eos # (Auto) Baso # (Auto) Abs Immat Gran (auto) Absolute Neuts (auto) Absolute Nucleated RBC Nucleated RBC % (auto) VBG pH VBG pCO2 VBG pO2 VBG HCO3 VBG O2 Saturation VBG Base Excess Sodium Potassium Chloride Carbon Dioxide Anion Gap BUN Creatinine Estim Creat Clear Calc Estimated GFR POC Glucose 189 H Random Glucose Calcium Phosphorus Magnesium Albumin Microbiology Microbiology Results: Microbiology 11/23/23 03:33 Blood - Venous Blood Culture - Final Streptococcus pyogenes (Grp A) 11/24/23 19:45 Leg Left Gram Stain - Final 11/24/23 19:45 Leg Left Routine Culture - Final Streptococcus pyogenes (Grp A) Serratia marcescens Stenotrophomonas maltophilia 11/24/23 19:45 Leg Right Gram Stain - Final 11/24/23 19:45 Leg Right Routine Culture - Final Enterococcus faecalis Acinetobacter baumannii Stenotrophomonas maltophilia 11/23/23 09:40 Blood - Venous Blood Culture - Final No growth after 5 days. Progress Note: A&P Assessment and plan (1) Pulmonary aspiration: Status: Acute (2) Acute pancreatitis: Status: Acute (3) Chronic ulcer of leg: Status: Acute (4) Shock: Status: Acute (5) Atrial fibrillation: Status: Chronic (6) Acute kidney injury: Status: Acute (7) Sepsis: Status: Acute Plan Assessment: 73-year-old gentleman admitted with ARABELLA sepsis, coagulopathy, further complicated by aspiration and cardiac arrest Plan: Neuro: No acute issues. Cardiac: Shock, likely septic with likely skin/soft tissue source, continue to titrate off pressors as tolerated. Underlying AFib continue with rate control. Pulmonary: Acute hypoxic respiratory failure secondary to pulmonary aspiration requiring re-intubation and ventilatory support, continue to titrate off as tolerated Renal: Acute kidney injury, improving. Non oliguric. Continue to monitor renal indices and urine output. Continue with diuresis. Hypernatremia, improved on D5. Endo: No acute issues. GI: Continue trophic feeds. Pancreatitis on abdominal CT. ID: Septic shock, skin/soft tissue source with multiple bacteria. Continue Zosyn. Heme/Onc: Coagulopathy, improved, INR therapeutic. Continue to monitor. Psych: No acute issues. Miscellaneous: No acute issues. Prophylaxis: heparin, ppi Diet: Tube feeds Critical care time spent: 60 minutes Quality Stroke Does the patient have a stroke diagnosis?: No VTE Prior VTE?: No VTE Risk Level:: Medical - moderate - high VTE Device Contraindication: Treatment Not Tolerated VTE Drug Contraindication: N/A - Med Ordered
--- NOTE | 2023-12-03 11:06 | MHC.CLN ---
F/U DISCUSSED AT ROUNDS WITH PT TO REMAIN ON TRICKLE FEEDS REVIEWED LABS-WATCH K+, MG, PHOS PT TO CONTINUE TO RECEIVE PROMOTE TF AT 20ML/HR PROVIDES 480KCALS (1073KCALS WITH SEDATION & [id number]; 13.7KCALS/KG), 30G PROTEIN, 403ML FREE WATER MONITOR TOLERANCE AND LYTES
--- NOTE | 2023-12-03 11:07 | MHC.CM.PN ---
Pt required reintubation after extubation. Plans for the day include assessment for weaning. Pt has been referred to [facility] and [facility]. CM to follow
[2023-12-03 11:45] LABS: Glucose, Whole Blood 162 mg/dL (60-115)
--- NOTE | 2023-12-03 12:18 | PC.NURSE ---
Patient extubated w/o incident to 2L NC at 1107 - positive cough & gag; Patient arousable to name. Patient attempting to clear throat - suctioning provided with oral yankauer w/ production of thick clear/white sputum. Patient continuing to attempt to clear throat - MD notified. Nasal trumpt placed for nasopharangeal suctioning. HR 100-120's, O2 sat 93% on 2L NC.
[2023-12-03] MEDS: Dextrose 5 % 1,000 ML 50 ML IVCONT (14:06)
[2023-12-03 17:12] LABS: Glucose, Whole Blood 141 mg/dL (60-115)
--- NOTE | 2023-12-03 19:02 | P.CNGI_ITS ---
History of Present Illness Data of Consult Service Date: 12/03/23 Requesting physician: Awais Harris Primary Care Provider: Reji Delgado [facility]- HPI Reason for consult: Pancreatitis, gastric outlet obstruction This is a 73-year-old gentleman with past medical history of aortic stenosis, atrial fibrillation, who presented to the hospital on 11/22 for hemodynamic shock possibly septic, with course complicated by PEA arrest, rapid AFib and acute anemia. Pt was extubated today. Gastroenterology has been consulted due to partial gastric outlet obstruction leading to silent aspiration. Patient was evaluated at bedside, awake lethargic and answers some questions. Does not endorse any abd pain. Has trickle feeds through NGT and per bedside nursing residuals have remained low. On imaging has evidence AIP with duodenal wall thickening leading to partial GOO - contrast travels to small bowel. Patient also having multiple BMs per collateral hx from ICU team. Labs with chronic normocytic anemia and severe hypernatremia. Review of Systems 2 Review of Systems: Yes Unobtainable due to mental status PMFSH Past Medical History Medical History (Updated 12/04/23 @ 07:31 by Guerline Alvarenga MD) Hemorrhagic shock Chronic ulcer of leg Atrial fibrillation Abscess of knee, left Moderate aortic stenosis Persistent atrial fibrillation Atherosclerosis of [place] coronary artery of [place] heart with angina pectoris Dyslipidemia Sleep apnea Reactive depression Anxiety HTN (hypertension) Family History Family History Other Brain cancer Surgical History Surgical History (Updated 11/27/23 @ 15:47 by Celi Burgos MD) History of incision and drainage Hx of carpal tunnel repair Status post ablation of incompetent vein using laser (~01/2022) History of revision of total replacement of left knee joint (~04/2016) History of total left knee replacement (~11/2015) History of evacuation of hematoma (~05/2015) History of total right knee replacement (TKR) (~04/2015) Social History Social History Household Members: Family Housing: House Do you presently have visiting nurse or other home services: Yes ([facility]) Alcohol intake: current Alcohol intake frequency: a few times a week Alcohol type: beer Comment: two canes Patient Tobacco Use Status: Former Tobacco user Quit Date: 7 years Years Smoked: 46+/- Smoked in Last 30 Days: No e-Cigarette/Vaping Use: Never Used Second Hand Smoke Exposure: No Use of substances other than those prescribed or required for medical reasons: No Substance Use Type: Marijuana Currently Displaying Signs/Symptoms of Drug Intoxication Withdrawal: No Have you been hit, kicked, punched, or otherwise hurt by someone within the past year? If so, by whom?: No Do you feel safe in your current relationship?: No Is there a partner from a previous relationship who is making you feel unsafe now?: No Are you made to feel afraid or neglected: No Spiritual Healthcare Practices: none per patient Baptism Healthcare Practices: none per patient Cultural Healthcare Practices: none per patient Advance Directives: Yes Advance Directives on File: Yes Advance Directives Date on File: 03/05/22 Do you have a plan to hurt others: No Plan Recently lost weight without trying: Yes How much weight loss: 14-23 pounds Eating poorly because of decreased appetite: Yes Nutrition screen score: 5 Nutrition Risks: No Nutritional Risk Poor oral hygiene: No service: No Current occupational status: previously employed and retired 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 Current occupational exposures/hazards: No Cognitive needs: No Hearing needs: No Vision needs: Yes Meds Allergies Allergy/AdvReac Type Severity Reaction Status Date / Time No Known Allergies Allergy Verified 11/23/23 03:43 [No Known Allergies*] Active Medications: Current Medications Amiodarone HCl (Amiodarone Hcl 200 Mg Tablet) 400 mg PO BID [facility] Last Admin: 12/03/23 08:47 Dose: 400 mg Bisacodyl (Bisacodyl 5 Mg Tablet.Dr) 10 mg PO DAILY PRN PRN Reason: Constipation Bumetanide (Bumetanide 1 Mg/4 Ml Vial) 1 mg IVPUSH BID@0900,1700 [facility]; Protocol Last Admin: 12/03/23 16:14 Dose: 1 mg Chlorhexidine Gluconate (Chlorhexidine Gluc Oral Rinse 15 Ml Mouthwash) 15 ml BUCCAL TID [facility] Last Admin: 12/03/23 14:09 Dose: Not Given Collagenase (Collagenase Clostridium Hist. 30 Gm Tube) 1 appl TOPICAL DAILY [facility]; Protocol Last Admin: 12/03/23 09:06 Dose: 1 appl Glucose (Glucose Gel 15 Gm Gel..Gram.) 15 gm PO Q15M PRN; Protocol PRN Reason: per Hypoglycemia Standing Ord. Heparin Sodium (Porcine) (Heparin Sodium,Porcine 5,000 Unit/Ml Vial) 5,000 unit SUBCUT Q8H [facility] Last Admin: 12/03/23 18:10 Dose: 5,000 unit Phenylephrine HCl 100 mg/ (Sodium Chloride) 260 mls @ 0 mls/hr IVCONT .Q0M [facility]; Protocol Last Titration: 12/03/23 09:07 Dose: Infused Piperacillin Sod/Tazobactam (Sod 3.375 gm/ Sodium Chloride) 50 mls @ 100 mls/hr IV Q6H [facility] Last Infusion: 12/03/23 16:08 Dose: Infused Propofol (Diprivan) 1,000 mg in 100 mls @ 0 mls/hr IVCONT .Q0M [facility]; Protocol Last Titration: 12/03/23 10:47 Dose: Infused Dextrose (D5w) 1,000 mls @ 50 mls/hr IVCONT .Q20H [facility] Last Admin: 12/03/23 14:06 Dose: 50 mls/hr Dextrose (D10) 250 mls @ 750 mls/hr IV Q15M PRN; Protocol PRN Reason: per Hypoglycemia Standing Ord. Albumin Human (Kedbumin 25 %) 100 mls @ 100 mls/hr IV Q6H [facility] Stop: 12/04/23 03:29 Last Infusion: 12/03/23 15:06 Dose: Infused Insulin Human Lispro (Insulin Lispro 100 Unit/Ml 3 Ml Vial) 0 unit SUBCUT Q6H [facility]; Protocol Last Admin: 12/03/23 17:21 Dose: Not Given Omeprazole (Omeprazole/Na Bicarb Oral Susp 20 Mg/10 Ml Ud Cup) 40 mg PO DAILY@0630 [facility] Last Admin: 12/03/23 05:43 Dose: 40 mg Ondansetron HCl (Ondansetron Hcl 4 Mg/2 Ml Vial) 4 mg IVPUSH Q6H PRN PRN Reason: Nausea and Vomiting Last Admin: 11/25/23 02:52 Dose: 4 mg Pharmacy Consult (Consult Rx Parenteral Nutrition Ordering) 1 each MISCELLANE DAILY PRN PRN Reason: Consult order Senna (Senna [place] Extract Oral Syrup 15 Ml Syrup) 15 ml PO BEDTIME [facility] Last Admin: 12/02/23 21:30 Dose: Not Given Sodium Chloride (0.9 % Sodium Chloride Flush 3 Ml Syringe) 3 ml IVFLUSH QSHIFT [facility] Last Admin: 12/03/23 15:12 Dose: 3 ml Home Medications ?Medication ?Instructions ?Recorded ?Confirmed ?Last Taken ?Type calcium carbonate (Tums) 1,000 mg PO BID PRN prior to 11/23/23 11/23/23 11/22/23 History ibuprofen ibuprofen 200 mg tablet 400 mg PO BID 11/23/23 11/23/23 11/22/23 History melatonin 10 mg disintegrating 10 mg PO BEDTIME 11/23/23 11/23/23 11/22/23 History tablet Physical Exam 2 Vital Signs: Vital Signs: Last Vital Signs Temp 101.9 F H 12/03/23 17:54 Pulse 125 H 12/03/23 17:54 Resp 45 H 12/03/23 17:54 BP 111/62 12/03/23 17:54 Pulse Ox 90 L 12/03/23 17:54 O2 Del Method Nasal Cannula 12/03/23 17:54 O2 Flow Rate 3.0 12/03/23 17:54 FiO2 30 12/03/23 11:10 BMI result Body Mass Index 40.0 Ill appearing gent NGT in place Grunting with breathing abd soft, nondistended, no wincing to palpation lethargic but awake, oriented x2 Results Labs 12/04/23 04:58 12/04/23 04:58 Labs: Short CBC 12/03/23 Range/Units 05:08 WBC 11.8 H (4.8-10.8) X10*3/uL Hgb 7.4 L (14.0-18.0) g/dl Hct 24.2 L (42.0-52.0) % Plt Count 231 D (160-400) X10*3/uL BMP 12/02/23 12/03/23 19:37 05:08 Sodium 161 H* 159 H Potassium 3.3 3.2 L Chloride 120 H 120 H Carbon Dioxide 29 27 BUN 42 H 42 H Creatinine 1.20 1.20 Calcium 8.2 L 8.0 L Liver Function 12/02/23 12/03/23 Range/Units 19:37 05:08 Albumin 3.4 L 3.1 L (3.5-5.0) g/dL Microbiology Microbiology Results: Microbiology 11/23/23 03:33 Blood - Venous Blood Culture - Final Streptococcus pyogenes (Grp A) 11/24/23 19:45 Leg Left Gram Stain - Final 11/24/23 19:45 Leg Left Routine Culture - Final Streptococcus pyogenes (Grp A) Serratia marcescens Stenotrophomonas maltophilia 11/24/23 19:45 Leg Right Gram Stain - Final 11/24/23 19:45 Leg Right Routine Culture - Final Enterococcus faecalis Acinetobacter baumannii Stenotrophomonas maltophilia 11/23/23 09:40 Blood - Venous Blood Culture - Final No growth after 5 days. Assessment and Plan (1) Acute pancreatitis: Status: Acute (2) Partial gastric outlet obstruction: Status: Acute Plan Based on radiological imaging appears to have partial GOO due to peripancreatic duodenal inflammation. However, unclear if pt has clinically significant obstruction as has only been on trickle feeds since yest with low residuals <100 per nursing staff. Plan is to cont low rate of TF as pt at high risk of re- intubation as per discussion with RENTAL MANAGER. Etiology of AIP remains unclear. No background of heavy etOH use. No cholelithiasis on imaging. TG normal on admission (slightly elevated on most recent check likely 2/2 propfol). Bairon low on admission. Plan: - When ok from resp stand point, recommend slowly advancing TF rate - If pt unable to tolerate goal rate due to partial GOO, can consider IR guided NJ tube placement for post pyloric feeding - Consider MRI pancreas protocol as OP in 3 month (pending clinical course) to r/o panc cyst in this 73y.o with AIP of no obvious etiology. Thank you for allowing me to participate in his care. Please do not hesitate to reach out for any questions or concerns. Procedures Date of Service Date of Service: 12/03/23
[2023-12-04] VITALS (25 sets, daily range): BP systolic 102–128; BP diastolic 46–80; PULSE 83–113; RESP 19–40; TEMP 36.9–38.1; O2SAT 93–100; BMI 40.9
[2023-12-04 00:26] LABS: Glucose, Whole Blood 154 mg/dL (60-115)
[2023-12-04] MEDS: Albumin Human 25 % 100 ML IV (02:15)
[2023-12-04] MEDS: Heparin Sodium,Porcine 5,000 UNIT/ML VIAL 5000 UNIT SUBCUT ×2 (02:16→18:49)
[2023-12-04] MEDS: Piperacillin Sodium/Tazobactam 3.375 GM in 0.9 % Sodium Chloride 50 ML IV ×4 (04:31→21:38)
[2023-12-04 04:56] LABS: VBG Base Excess 5.4 mmol/L; VBG HCO3 29 mmol/L (22-26); VBG pCO2 40 mmHg; VBG pH 7.47 (7.32-7.43); VBG pO2 31 mmHg
[2023-12-04 05:00] LABS: Venous Blood Gas Refer to POC result
[2023-12-04 05:15] LABS: MANUAL DIFF FLAG NO
[2023-12-04 05:16] LABS: Basophils Percent Auto 0.3 % (0-2); Eosinophils Absolute Auto 0.4 X10*3/uL (0.0-0.4); Eosinophils Percent Auto 3.6 % (0-4); Hematocrit 26.9 % (42.0-52.0); Hemoglobin 8.3 g/dl (14.0-18.0); Imm Gran Abs Auto 0.06 X10*3/uL (0.00-0.03); Imm Gran Pct Auto 0.6 % (0.0-0.4); Lymphocytes Absolute Auto 1.5 X10*3/uL (1.2-4.9); Lymphocytes Percent Auto 15.2 % (20-40); Mean Corpuscular HGB Conc 30.9 g/dl (31.0-36.0); Mean Corpuscular Hemoglobin 28.8 pg (27.0-33.0); Mean Corpuscular Volume 93.4 fL (80.0-98.0); Mean Platelet Volume 11.2 fL (9.4-12.4); Monocytes Absolute Auto 0.2 X10*3/uL (0.1-1.2); Monocytes Percent Auto 2.5 % (2-11); Neutrophils Absolute Auto 7.5 x10*3/uL (2.0-8.3); Neutrophils Percent Auto 77.8 % (45-73); Platelet Count 249 X10*3/uL (160-400); Red Blood Count 2.88 X10*6/uL (4.60-5.80); Red Cell Distribution Width 18.4 % (11.0-16.0); White Blood Count 9.7 X10*3/uL (4.8-10.8)
[2023-12-04 05:35] LABS: Albumin Level 3.6 g/dL (3.5-5.0); Anion Gap 17 (12-20); Blood Urea Nitrogen 34 mg/dL (9-16); Calcium 8.4 mg/dL (8.4-10.2); Carbon Dioxide 25 mmol/L (22-29); Chloride 122 mmol/L (96-108); Creatinine Clr Calc Pharmacy 61.2; Estimated Glomerular Filt Rate 46; Glucose Random 169 mg/dL (60-115); Magnesium 1.8 mg/dL (1.6-2.6); Phosphorus 2.1 mg/dL (2.7-4.5); Potassium 3.3 mmol/L (3.3-5.1); Sodium 161 mmol/L (135-145)
[2023-12-04 05:39] LABS: NRBC Pct Auto 1.2 /100WBC (0.0-0.2)
[2023-12-04] MEDS: Insulin Lispro 100 UNIT/ML 3 ML VIAL SUBCUT (06:32)
[2023-12-04] MEDS: Omeprazole/Na Bicarb Oral Susp 20 MG/10 ML UD Cup 40 MG PO (06:33)
[2023-12-04] MEDS: Potassium Phosphate/NS 15 MMOL/250 ML PLAST..BAG 62.5 MMOL IV ×2 (06:38→10:43)
[2023-12-04] MEDS: Amiodarone HCL 200 MG TABLET 400 MG PO ×2 (09:47→20:13)
[2023-12-04] MEDS: Bumetanide 1 MG/4 ML VIAL IVPUSH ×2 (09:47→16:34)
[2023-12-04] MEDS: Collagenase Clostridium Hist. 30 GM TUBE 1 APPL TOPICAL (09:48)
[2023-12-04] MEDS: 0.9 % Sodium Chloride Flush 3 ML SYRINGE IVFLUSH ×3 (09:49→20:14)
--- NOTE | 2023-12-04 11:11 | MHC.CLN ---
F/U DISCUSSED AT ROUNDS WITH MD-PLAN FOR POSSIBLE JTUBE PLACEMENT R/T PARTIAL GASTRIC OUTLET OBSTRUCTION PT WITH NGT IN PLACE REVIEWED LABS PT RECEIVING PROMOTE TF AT 50ML/HR WITH 240ML FREE WATER FLUSHES Q 4 HRS TO PROVIDE 1200KCALS (15KCALS/KG), 75G PROTEIN (.96G/KG), 2447ML TOTAL FREE WATER FROM FORMULA AND FLUSHES (31ML/KG) MONITOR TOLERANCE AND LYTES RD CAN BE REACHED VIA TIGER CONNECT DURING OFF HOURS
[2023-12-04] MEDS: fentaNYL citrate/PF 100 MCG/2 ML VIAL 50 MCG IVPUSH (11:39)
[2023-12-04] MEDS: Dextrose 5 % 1,000 ML 50 ML IVCONT (11:41)
[2023-12-04 12:39] LABS: Glucose, Whole Blood 128 mg/dL (60-115)
--- NOTE | 2023-12-04 13:02 | P.PNCC_ITS ---
Subjective Subjective Date of Service: 12/04/23 Interval History: 73-year-old gentleman with underlying aortic stenosis, AFib on anticoagulation admitted on 11/23/2023 with dizziness and weakness. On ER evaluation patient hypotensive with poor response to initial IV fluid resuscitation requiring pressor support. Also, with significant coagulopathy with INR greater than 26 acute renal failure, left lower extremity cellulitis with hospital course complicated by pancreatitis with large volume emesis with resultant aspiration and cardiac arrest with successful resuscitation after 7 minutes of CPR, intubated during the code extubated 11/29/2023. On 12/01/2023 with pulmonary aspirations requiring re-intubation. CT abdomen/pelvis with low-grade pancreatitis and duodenal narrowing. Extubated 12/03/2023. No events overnight. Critical Care Time (minutes): 0 Physical Exam 2 Vital Signs: Vital Signs: Last Vital Signs Temp 99.7 F 12/04/23 11:56 Pulse 83 12/04/23 11:56 Resp 36 H 12/04/23 11:56 BP 120/80 12/04/23 11:56 Pulse Ox 100 12/04/23 11:56 O2 Del Method Nasal Cannula 12/04/23 11:56 O2 Flow Rate 3 12/04/23 11:56 FiO2 30 12/03/23 11:10 BMI result Body Mass Index 40.9 Const: General: no acute distress, alert, awake and confusion O rientation/consciousness: confusion Eyes: Sclerae: sclerae normal EOM: EOMs intact bilaterally Neck: Neck: Yes no lymphadenopathy, Yes trachea midline and Yes supple Resp: Effort & Inspection: normal respiratory effort and no respiratory distress Auscultation: crackles bilateral Cardio: Rate: regular rate Rhythm: regular rhythm Heart sounds: no gallops, no murmurs and no rubs GI: Palpation (GI): Soft to palpation and Other GI palpation findings present ( Nontender) Auscultation: normal bowel sounds Neuro: General: confusion Extrem: General: No clubbing, No cyanosis and Yes edema (1+ bilateral) Objective Data Labs 12/04/23 04:58 12/04/23 04:58 Labs: Laboratory Results - last 24 hr 12/03/23 12/04/23 12/04/23 17:09 00:18 04:48 WBC RBC Hgb Hct MCV MCH MCHC RDW Plt Count MPV Immature Gran % (Auto) Neut % (Auto) Lymph % (Auto) [place] % (Auto) Eos % (Auto) Baso % (Auto) Lymph # (Auto) [place] # (Auto) Eos # (Auto) Baso # (Auto) Abs Immat Gran (auto) Absolute Neuts (auto) Absolute Nucleated RBC Nucleated RBC % (auto) VBG pH 7.47 H VBG pCO2 40 VBG pO2 31 VBG HCO3 29 H VBG O2 Saturation 41.0 VBG Base Excess 5.4 Sodium Potassium Chloride Carbon Dioxide Anion Gap BUN Creatinine Estim Creat Clear Calc Estimated GFR POC Glucose 141 H 154 H Random Glucose Calcium Phosphorus Magnesium Albumin 12/04/23 12/04/23 04:58 12:34 WBC 9.7 RBC 2.88 L Hgb 8.3 L Hct 26.9 L MCV 93.4 MCH 28.8 MCHC 30.9 L RDW 18.4 H Plt Count 249 MPV 11.2 Immature Gran % (Auto) 0.6 H Neut % (Auto) 77.8 H Lymph % (Auto) 15.2 L [place] % (Auto) 2.5 Eos % (Auto) 3.6 Baso % (Auto) 0.3 Lymph # (Auto) 1.5 [place] # (Auto) 0.2 Eos # (Auto) 0.4 Baso # (Auto) 0.0 Abs Immat Gran (auto) 0.06 H Absolute Neuts (auto) 7.5 Absolute Nucleated RBC 0.120 H Nucleated RBC % (auto) 1.2 H VBG pH VBG pCO2 VBG pO2 VBG HCO3 VBG O2 Saturation VBG Base Excess Sodium 161 H* Potassium 3.3 Chloride 122 H Carbon Dioxide 25 Anion Gap 17 BUN 34 H Creatinine 1.50 H Estim Creat Clear Calc 61.2 Estimated GFR 46 POC Glucose 128 H Random Glucose 169 H Calcium 8.4 Phosphorus 2.1 L Magnesium 1.8 Albumin 3.6 Microbiology Microbiology Results: Microbiology 11/23/23 03:33 Blood - Venous Blood Culture - Final Streptococcus pyogenes (Grp A) 11/24/23 19:45 Leg Left Gram Stain - Final 11/24/23 19:45 Leg Left Routine Culture - Final Streptococcus pyogenes (Grp A) Serratia marcescens Stenotrophomonas maltophilia 11/24/23 19:45 Leg Right Gram Stain - Final 11/24/23 19:45 Leg Right Routine Culture - Final Enterococcus faecalis Acinetobacter baumannii Stenotrophomonas maltophilia 11/23/23 09:40 Blood - Venous Blood Culture - Final No growth after 5 days. Progress Note: A&P Assessment and plan (1) Partial gastric outlet obstruction: Status: Acute (2) Pulmonary aspiration: Status: Acute (3) Acute pancreatitis: Status: Acute (4) Chronic ulcer of leg: Status: Acute (5) Atrial fibrillation: Status: Chronic (6) Acute kidney injury: Status: Acute (7) Hypernatremia: Status: Acute (8) Metabolic encephalopathy: Status: Acute Plan Assessment: 73-year-old gentleman admitted with ARABELLA sepsis, coagulopathy, further complicated by aspiration and cardiac arrest Plan: Neuro: No acute issues. Cardiac: Shock, likely septic with likely skin/soft tissue source, resolved. Underlying AFib continue with rate control. Pulmonary: Acute hypoxic respiratory failure secondary to pulmonary aspiration requiring re-intubation and ventilatory support, extubated 12/03/2023. Renal: Acute kidney injury, improving. Non oliguric. Continue to monitor renal indices and urine output. Continue with diuresis. Hypernatremia, improved on D5. Endo: No acute issues. GI: Partial gastric outlet obstruction secondary to low-grade pancreatitis with duodenitis. Gastroenterology service care appreciated. Plan to switch NGT to NJT today. ID: Septic shock, skin/soft tissue source with multiple bacteria. Continue Zosyn. Heme/Onc: Coagulopathy, improved, INR therapeutic. Continue to monitor. Psych: No acute issues. Miscellaneous: No acute issues. Prophylaxis: heparin, ppi Diet: Tube feeds Quality Stroke Does the patient have a stroke diagnosis?: No VTE Prior VTE?: No VTE Risk Level:: Medical - moderate - high VTE Device Contraindication: Treatment Not Tolerated VTE Drug Contraindication: N/A - Med Ordered
--- NOTE | 2023-12-04 13:05 | MHC.CM.PN ---
Addendum entered by Marti Mayorga 12/04/23 13:34: Pt was extubated on 12/02 Original Note: Pt remains intubated in ICU: IR to place feeding tube in jejunum today for optimization of nutritional needs. Pt has been referred to STR and VNA as d/c plan remains unfinalized pending clinical progress. CM to follow.
--- NOTE | 2023-12-04 14:32 | HO.WOUND ---
Wound Consult: Follow up 73yr old?male admitted to [facility] [place], [place] on 11/23/23 - See progress notes and H&P for detailed history.? Wound consult follow up for bilateral Lower Legs.? Patient agreeable to assessment and photo documentation.? Chart review reveals patient follows with wound clinic for treatment and has VNA services in place. Patient remains in ICU level of care. Patient premedicated by direct care nurse. 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 Santyl for enzymatic debridement No New topical recommendations. Recommendations: 1. Turn and Reposition every 2 hours and as needed for patient comfort.? Use pillows or wedges to support off loading positions. 2. Off Load all bony prominences with use of pillows and heel boots if needed.? Apply Preventative foams where needed. ? 3. Monitor for incontinence and moisture control, use barrier creams when needed for prevention and treatment. 4. Provide adequate and supplemental nutrition.? 5. Order or Continue low air loss mattress. 6. Bilateral Lower Legs - Elevate Lower Legs - Cleanse with normal saline, pat dry. ?Apply barrier to the immediate malini wound, apply thick layer of Santyl to entire wound bed, cover with xeroform, secure dry gauze, ABD pads and gauze wrap, change Daily. Continue to follow with wound clinic outpatient. Re-consult wound care Nurse for wound deterioration or wound changes.
[2023-12-04 17:53] LABS: Glucose, Whole Blood 137 mg/dL (60-115)
[2023-12-04 21:08] LABS: Anion Gap 18 (12-20); Blood Urea Nitrogen 31 mg/dL (9-16); Calcium 8.5 mg/dL (8.4-10.2); Carbon Dioxide 22 mmol/L (22-29); Chloride 124 mmol/L (96-108); Creatinine Clr Calc Pharmacy 67.3; Estimated Glomerular Filt Rate 51; Glucose Random 161 mg/dL (60-115); Magnesium 1.8 mg/dL (1.6-2.6); Phosphorus 3.2 mg/dL (2.7-4.5); Potassium 3.5 mmol/L (3.3-5.1); Sodium 160 mmol/L (135-145)
[2023-12-04 23:44] LABS: Glucose, Whole Blood 143 mg/dL (60-115)
[2023-12-05] VITALS (27 sets, daily range): BP systolic 95–146; BP diastolic 50–93; PULSE 92–117; RESP 19–42; TEMP 36.5–38.4; O2SAT 100; BMI 40.4
[2023-12-05] MEDS: Dextrose 5 % 1,000 ML 75 ML IVCONT ×2 (03:30→16:23)
[2023-12-05] MEDS: Heparin Sodium,Porcine 5,000 UNIT/ML VIAL 5000 UNIT SUBCUT ×3 (03:32→18:41)
[2023-12-05] MEDS: Piperacillin Sodium/Tazobactam 3.375 GM in 0.9 % Sodium Chloride 50 ML IV ×4 (03:33→21:34)
[2023-12-05 06:18] LABS: Glucose, Whole Blood 143 mg/dL (60-115)
--- NOTE | 2023-12-05 06:31 | PC.NURSE ---
Pulpit Operator advised designer writer they were unable to obtain ordered daily labs this morning when attempted, will send another tubing assembler to attempt. LAURA Bruno made aware.
[2023-12-05] MEDS: Chlorhexidine Gluc Oral Rinse 15 ML MOUTHWASH BUCCAL ×3 (08:57→20:09)
[2023-12-05] MEDS: Bumetanide 1 MG/4 ML VIAL IVPUSH ×2 (08:57→16:27)
[2023-12-05] MEDS: Amiodarone HCL 200 MG TABLET 400 MG PO ×2 (08:59→20:03)
[2023-12-05] MEDS: 0.9 % Sodium Chloride Flush 3 ML SYRINGE IVFLUSH ×3 (09:00→19:57)
[2023-12-05] MEDS: Collagenase Clostridium Hist. 30 GM TUBE 1 APPL TOPICAL (09:01)
--- NOTE | 2023-12-05 09:30 | PC.NURSE ---
Patient had four episodes of liquid stool in one hour, per cage shift manager report patient also had multiple episodes of loose stool, verbal order to place flexi seal rectal tube in received from provider
[2023-12-05 11:30] LABS: Glucose, Whole Blood 158 mg/dL (60-115)
--- NOTE | 2023-12-05 11:43 | P.PNCC_ITS ---
Subjective Subjective Date of Service: 12/05/23 Interval History: 73-year-old gentleman with underlying aortic stenosis, AFib on anticoagulation admitted on 11/23/2023 with dizziness and weakness. On ER evaluation patient hypotensive with poor response to initial IV fluid resuscitation requiring pressor support. Also, with significant coagulopathy with INR greater than 26 acute renal failure, left lower extremity cellulitis with hospital course complicated by pancreatitis with large volume emesis with resultant aspiration and cardiac arrest with successful resuscitation after 7 minutes of CPR, intubated during the code extubated 11/29/2023. On 12/01/2023 with pulmonary aspirations requiring re-intubation. CT abdomen/pelvis with low-grade pancreatitis and duodenal narrowing. Extubated 12/03/2023. IR unable to advance tube into jejunum. No events overnight. Critical Care Time (minutes): 0 Physical Exam 2 Vital Signs: Vital Signs: Last Vital Signs Temp 99.8 F 12/05/23 11:00 Pulse 103 H 12/05/23 11:00 Resp 32 H 12/05/23 11:00 BP 120/69 12/05/23 11:00 Pulse Ox 100 12/05/23 11:00 O2 Del Method Nasal Cannula 12/05/23 11:00 O2 Flow Rate 1 12/05/23 11:00 FiO2 30 12/03/23 11:10 BMI result Body Mass Index 40.4 Const: General: no acute distress, alert and awake Eyes: Sclerae: sclerae normal EOM: EOMs intact bilaterally Neck: Neck: Yes no lymphadenopathy, Yes trachea midline and Yes supple Resp: Effort & Inspection: normal respiratory effort and no respiratory distress Auscultation: crackles (Bilateral) Cardio: Rate: regular rate Rhythm: regular rhythm Heart sounds: no gallops, no murmurs and no rubs GI: Palpation (GI): Soft to palpation and Other GI palpation findings present ( Nontender) Auscultation: normal bowel sounds Extrem: General: No clubbing, No cyanosis and Yes edema (1+ bilateral) Objective Data Labs 12/04/23 04:58 12/04/23 20:31 Labs: Laboratory Results - last 24 hr 12/04/23 12/04/23 12/04/23 12:34 17:45 20:31 Sodium 160 H* Potassium 3.5 Chloride 124 H Carbon Dioxide 22 Anion Gap 18 BUN 31 H Creatinine 1.38 Estim Creat Clear Calc 67.3 Estimated GFR 51 POC Glucose 128 H 137 H Random Glucose 161 H Calcium 8.5 Phosphorus 3.2 Magnesium 1.8 12/04/23 12/05/23 12/05/23 23:36 06:15 11:20 Sodium Potassium Chloride Carbon Dioxide Anion Gap BUN Creatinine Estim Creat Clear Calc Estimated GFR POC Glucose 143 H 143 H 158 H Random Glucose Calcium Phosphorus Magnesium Microbiology Microbiology Results: Microbiology 11/23/23 03:33 Blood - Venous Blood Culture - Final Streptococcus pyogenes (Grp A) 11/24/23 19:45 Leg Left Gram Stain - Final 11/24/23 19:45 Leg Left Routine Culture - Final Streptococcus pyogenes (Grp A) Serratia marcescens Stenotrophomonas maltophilia 11/24/23 19:45 Leg Right Gram Stain - Final 11/24/23 19:45 Leg Right Routine Culture - Final Enterococcus faecalis Acinetobacter baumannii Stenotrophomonas maltophilia 11/23/23 09:40 Blood - Venous Blood Culture - Final No growth after 5 days. Progress Note: A&P Assessment and plan (1) Metabolic encephalopathy: Status: Acute (2) Hypernatremia: Status: Acute (3) Partial gastric outlet obstruction: Status: Acute (4) Pulmonary aspiration: Status: Acute (5) Acute pancreatitis: Status: Acute (6) Atrial fibrillation: Status: Chronic (7) Acute kidney injury: Status: Acute Plan Assessment: 73-year-old gentleman admitted with ARABELLA sepsis, coagulopathy, further complicated by aspiration and cardiac arrest Plan: Neuro: No acute issues. Cardiac: Shock, likely septic with likely skin/soft tissue source, resolved. Underlying AFib continue with rate control. Pulmonary: Acute hypoxic respiratory failure secondary to pulmonary aspiration requiring re-intubation and ventilatory support, extubated 12/03/2023. Renal: Acute kidney injury, improving. Non oliguric. Continue to monitor renal indices and urine output. Continue with diuresis. Hypernatremia, continue on D5 and free water boluses. Endo: No acute issues. GI: Partial gastric outlet obstruction secondary to low-grade pancreatitis with duodenitis. Gastroenterology service care appreciated. IR unable to switch NGT to NJT. ID: Septic shock, skin/soft tissue source with multiple bacteria. Continue Zosyn. Heme/Onc: Coagulopathy, improved, INR therapeutic. Continue to monitor. Psych: No acute issues. Miscellaneous: No acute issues. Prophylaxis: heparin, ppi Diet: Tube feeds, pending swallow evaluation Quality Stroke Does the patient have a stroke diagnosis?: No VTE Prior VTE?: No VTE Risk Level:: Medical - moderate - high VTE Device Contraindication: Treatment Not Tolerated VTE Drug Contraindication: N/A - Med Ordered
[2023-12-05] MEDS: Insulin Lispro 100 UNIT/ML 3 ML VIAL SUBCUT (12:45)
[2023-12-05 15:24] LABS: VBG Base Excess 7.1 mmol/L; VBG HCO3 30 mmol/L (22-26); VBG pCO2 35 mmHg; VBG pH 7.53 (7.32-7.43); VBG pO2 39 mmHg
--- NOTE | 2023-12-05 15:40 | PC.RT ---
Nurse request RT to assess for secreation managment. Pt was nasal sxb via L Nare with 12fr catheter for copious creamy sec. There was no trauma noted, Nurse at bedside. Pt spo2 100% post on1.5 lpm n/c.
[2023-12-05 15:41] LABS: MANUAL DIFF FLAG NO
[2023-12-05 15:47] LABS: Basophils Percent Auto 0.5 % (0-2); Eosinophils Absolute Auto 0.3 X10*3/uL (0.0-0.4); Hematocrit 27.3 % (42.0-52.0); Hemoglobin 8.2 g/dl (14.0-18.0); Imm Gran Abs Auto 0.03 X10*3/uL (0.00-0.03); Imm Gran Pct Auto 0.5 % (0.0-0.4); Lymphocytes Absolute Auto 1.3 X10*3/uL (1.2-4.9); Lymphocytes Percent Auto 20.1 % (20-40); Mean Corpuscular Hemoglobin 28.4 pg (27.0-33.0); Mean Corpuscular Volume 94.5 fL (80.0-98.0); Mean Platelet Volume 11.3 fL (9.4-12.4); Monocytes Absolute Auto 0.2 X10*3/uL (0.1-1.2); NRBC Pct Auto 0.9 /100WBC (0.0-0.2); Neutrophils Absolute Auto 4.7 x10*3/uL (2.0-8.3); Neutrophils Percent Auto 70.9 % (45-73); Platelet Count 251 X10*3/uL (160-400); Red Blood Count 2.89 X10*6/uL (4.60-5.80); Red Cell Distribution Width 18.5 % (11.0-16.0); White Blood Count 6.6 X10*3/uL (4.8-10.8)
[2023-12-05 16:09] LABS: Alanine Aminotransferase 15 U/L (0-40); Albumin Level 2.8 g/dL (3.5-5.0); Alkaline Phosphatase 54 U/L (39-117); Anion Gap 15 (12-20); Aspartate Amino Transferase 25 U/L (5-37); Bilirubin Total 2.2 mg/dL (0.0-1.0); Blood Urea Nitrogen 36 mg/dL (9-16); Calcium 8.1 mg/dL (8.4-10.2); Carbon Dioxide 28 mmol/L (22-29); Chloride 119 mmol/L (96-108); Creatinine Clr Calc Pharmacy 58.4; Estimated Glomerular Filt Rate 43; Glucose Random 144 mg/dL (60-115); Magnesium 1.7 mg/dL (1.6-2.6); Phosphorus 2.6 mg/dL (2.7-4.5); Potassium 2.7 mmol/L (3.3-5.1); Sodium 159 mmol/L (135-145)
[2023-12-05] MEDS: Potassium Chloride Packet 20 MEQ PACKET 60 MEQ PO (16:27)
[2023-12-05] MEDS: Potassium Chloride/H20 10 MEQ/100 ML PIGGYBACK 100 MEQ IV ×4 (16:27→20:00)
[2023-12-05] MEDS: Sodium,Potassium Phosphates POWD.PACK 1 PACKET PO (16:27)
[2023-12-05 17:39] LABS: Glucose, Whole Blood 142 mg/dL (60-115)
--- NOTE | 2023-12-05 19:03 | PC.NURSE ---
Verbal order to do bedside swallow test received, unable to complete the test, patient was unable to sit up high enough to do the test, had hiccups and did not want to continue with the test.
--- NOTE | 2023-12-05 19:07 | PC.NURSE ---
Patient was drowsy, sleeping in naps throughout the shift, at times when more alert would attempt to pull on IV lines and dialysis port. Sitter in place, patient mostly confused, unable to communicate his needs. Oral suctioned as needed, not able to follow instruction to complete bedside swallow test. Patient underwent dialysis this morning, 1.4L fluids removed. Patient had no urine output.
[2023-12-05 23:05] LABS: Venous Blood Gas Refer to POC result
[2023-12-05 23:30] LABS: Glucose, Whole Blood 146 mg/dL (60-115)
[2023-12-06] VITALS (17 sets, daily range): BP systolic 99–160; BP diastolic 63–97; PULSE 88–124; RESP 20–42; TEMP 37.6–38.6; O2SAT 95–100; BMI 42.7
--- NOTE | 2023-12-06 | ECG_ITS ---
Test Reason : tachycardia Blood Pressure : / mmHG Vent. Rate : 096 BPM Atrial Rate : 000 BPM P-R Int : 000 ms QRS Dur : 078 ms QT Int : 286 ms P-R-T Axes : 000 016 181 degrees QTc Int : 361 ms Atrial fibrillation Low voltage QRS ST & T wave abnormality, consider lateral ischemia Abnormal ECG When compared with ECG of 23-NOV-2023 03:16, QRS duration has decreased Nonspecific T wave abnormality now evident in Anterior leads Referred By: Katelyn Fraser Electronically Signed By:Tutu Daigle
[2023-12-06] MEDS: Piperacillin Sodium/Tazobactam 3.375 GM in 0.9 % Sodium Chloride 50 ML IV ×3 (03:57→17:42)
[2023-12-06] MEDS: Heparin Sodium,Porcine 5,000 UNIT/ML VIAL 5000 UNIT SUBCUT ×3 (03:57→18:52)
--- NOTE | 2023-12-06 04:42 | PM.EVENT ---
Documented by User: Chanelle Reed NP 12/06/23 04:44 Event Note Date of Service: 12/06/23 Event Note: 73-year-old gentleman with underlying aortic stenosis, AFib on anticoagulation admitted on 11/23/2023 with dizziness and weakness.? On ER evaluation patient hypotensive with poor response to initial IV fluid resuscitation requiring pressor support.? Also, with significant coagulopathy with INR greater than 26 acute renal failure, left lower extremity cellulitis with hospital course complicated by pancreatitis with large volume emesis with resultant aspiration and cardiac arrest with successful resuscitation after 7 minutes of CPR, intubated during the code extubated 11/29/2023.? On 12/01/2023 with pulmonary aspirations requiring re-intubation.? CT abdomen/pelvis with low-grade pancreatitis and duodenal narrowing.? Extubated 12/03/2023. Pt failed swallow evaluation, currently receiving tube feeds through NGT. Attempted to switch to NJT but IR was unable to advance the tube into jejunum. The patient is now off pressors and no longer requires ICU level of care. Transfer to [facility] floor.? Time Spent With Patient Time: Total time managing care of this patient today ____ minutes. Documented by User: Awais Harris MD 12/06/23 09:18 Event Note Date of Service: 12/06/23
--- NOTE | 2023-12-06 05:22 | PC.NURSE ---
Phlebotomy unable to obtain morning labs at this time despite multiple attempts; states awaiting another roving frame tender to attempt draw. Midline IV x2 without blood return when attempted. COMPOTYPE OPERATOR notified.
[2023-12-06 05:27] LABS: Glucose, Whole Blood 136 mg/dL (60-115)
--- NOTE | 2023-12-06 05:40 | PC.NURSE ---
Addendum entered by Marisol Haddad RN 12/06/23 06:11: Patient transferred with all belongings in stable condition by nursing insulation supervisor at 06:10. Original Note: Patient downgraded, to be transferred to /med-tele. Nursing handoff report called to Catherine at 05:25.
[2023-12-06] MEDS: Dextrose 5 % 1,000 ML 75 ML IVCONT (08:03)
[2023-12-06] MEDS: Heparin Sodium,Porcine Flush 50 UNITS/5 ML SYRINGE IVFLUSH ×2 (10:02→11:04)
[2023-12-06] MEDS: 0.9 % Sodium Chloride Flush 3 ML SYRINGE IVFLUSH ×2 (10:19→18:06)
[2023-12-06] MEDS: Amiodarone HCL 200 MG TABLET 400 MG PO (10:20)
[2023-12-06] MEDS: Bumetanide 1 MG/4 ML VIAL IVPUSH ×2 (10:21→17:11)
[2023-12-06] MEDS: Chlorhexidine Gluc Oral Rinse 15 ML MOUTHWASH BUCCAL ×2 (10:21→17:15)
[2023-12-06] MEDS: Collagenase Clostridium Hist. 30 GM TUBE 1 APPL TOPICAL (10:28)
--- NOTE | 2023-12-06 10:55 | HO.PM.IMPN ---
Subjective Subjective Date of Service: 12/06/23 Review of Systems Follow up Transfer from ICU, hypotension require vasopressor support, GI bleed with supratherapeutic INR, pancreatitism, cardiac arrest, Pulmonary aspiration NGT says a few words, eyes open, mild lethargy Physical Exam Vital Signs: Vital Signs: Last Vital Signs Temp 99.6 F 12/06/23 09:36 Pulse 88 12/06/23 09:36 Resp 26 H 12/06/23 09:36 BP 132/76 12/06/23 09:36 Pulse Ox 97 12/06/23 09:36 O2 Del Method Nasal Cannula 12/06/23 09:36 O2 Flow Rate 2 12/06/23 09:36 FiO2 30 12/03/23 11:10 BMI result Body Mass Index 42.7 Objective Data Active Medications Amiodarone HCl (Amiodarone Hcl 200 Mg Tablet) 400 mg PO BID [facility] Last Admin: 12/06/23 10:20 Dose: 400 mg Documented By: MELANI Bisacodyl (Bisacodyl 5 Mg Tablet.Dr) 10 mg PO DAILY PRN PRN Reason: Constipation Bumetanide (Bumetanide 1 Mg/4 Ml Vial) 1 mg IVPUSH BID@0900,1700 [facility]; Protocol Last Admin: 12/06/23 10:21 Dose: 1 mg Documented By: MELANI Chlorhexidine Gluconate (Chlorhexidine Gluc Oral Rinse 15 Ml Mouthwash) 15 ml BUCCAL TID [facility] Last Admin: 12/06/23 10:21 Dose: 15 ml Documented By: MELANI Collagenase (Collagenase Clostridium Hist. 30 Gm Tube) 1 appl TOPICAL DAILY [facility]; Protocol Last Admin: 12/06/23 10:28 Dose: 1 appl Documented By: MELANI Glucose (Glucose Gel 15 Gm Gel..Gram.) 15 gm PO Q15M PRN; Protocol PRN Reason: per Hypoglycemia Standing Ord. Heparin Sodium (Porcine) (Heparin Sodium,Porcine 5,000 Unit/Ml Vial) 5,000 unit SUBCUT Q8H [facility] Last Admin: 12/06/23 03:57 Dose: 5,000 unit Documented By: BROWN Piperacillin Sod/Tazobactam (Sod 3.375 gm/ Sodium Chloride) 50 mls @ 100 mls/hr IV Q6H [facility] Last Admin: 12/06/23 10:21 Dose: 100 mls/hr Documented By: MELANI Dextrose (D5w) 1,000 mls @ 75 mls/hr IVCONT .[id number] [facility] Last Admin: 12/06/23 08:03 Dose: 75 mls/hr Documented By: MELANI Dextrose (D10) 250 mls @ 750 mls/hr IV Q15M PRN; Protocol PRN Reason: per Hypoglycemia Standing Ord. Insulin Human Lispro (Insulin Lispro 100 Unit/Ml 3 Ml Vial) 0 unit SUBCUT Q6H [facility]; Protocol Last Admin: 12/06/23 05:28 Dose: Not Given Documented By: BROWN Non-Admin Reason: POC out of range 136 Ondansetron HCl (Ondansetron Hcl 4 Mg/2 Ml Vial) 4 mg IVPUSH Q6H PRN PRN Reason: Nausea and Vomiting Last Admin: 11/25/23 02:52 Dose: 4 mg Documented By: BROWN Pharmacy Consult (Consult Rx Parenteral Nutrition Ordering) 1 each MISCELLANE DAILY PRN PRN Reason: Consult order Senna (Senna [place] Extract Oral Syrup 15 Ml Syrup) 15 ml PO BEDTIME [facility] Last Admin: 12/05/23 20:09 Dose: 15 ml Documented By: BROWN Sodium Chloride (0.9 % Sodium Chloride Flush 3 Ml Syringe) 3 ml IVFLUSH QSHIFT [facility] Last Admin: 12/06/23 10:19 Dose: 3 ml Documented By: MELANI Labs 12/06/23 15:12 12/06/23 15:12 Labs: Laboratory Results - last 24 hr 12/05/23 12/05/23 12/05/23 11:20 15:09 15:14 MCV MCH MCHC RDW Plt Count MPV Immature Gran % (Auto) Neut % (Auto) Lymph % (Auto) [place] % (Auto) Eos % (Auto) Baso % (Auto) Lymph # (Auto) [place] # (Auto) Eos # (Auto) Baso # (Auto) Abs Immat Gran (auto) Absolute Neuts (auto) Absolute Nucleated RBC Nucleated RBC % (auto) VBG pH 7.53 H VBG pCO2 35 VBG pO2 39 VBG HCO3 30 H VBG O2 Saturation 62.0 VBG Base Excess 7.1 Anion Gap 15 Estim Creat Clear Calc 58.4 Estimated GFR 43 POC Glucose 158 H Random Glucose 144 H Calcium 8.1 L Phosphorus 2.6 L Magnesium 1.7 Total Bilirubin 2.2 H AST 25 ALT 15 Alkaline Phosphatase 54 Total Protein 7.0 Albumin 2.8 L Hold Yellow Top See Note 12/05/23 12/05/23 12/05/23 15:17 17:36 23:23 MCV 94.5 MCH 28.4 MCHC 30.0 L RDW 18.5 H Plt Count 251 MPV 11.3 Immature Gran % (Auto) 0.5 H Neut % (Auto) 70.9 Lymph % (Auto) 20.1 [place] % (Auto) 3.0 Eos % (Auto) 5.0 H Baso % (Auto) 0.5 Lymph # (Auto) 1.3 [place] # (Auto) 0.2 Eos # (Auto) 0.3 Baso # (Auto) 0.0 Abs Immat Gran (auto) 0.03 Absolute Neuts (auto) 4.7 Absolute Nucleated RBC 0.060 H Nucleated RBC % (auto) 0.9 H VBG pH VBG pCO2 VBG pO2 VBG HCO3 VBG O2 Saturation VBG Base Excess Anion Gap Estim Creat Clear Calc Estimated GFR POC Glucose 142 H 146 H Random Glucose Calcium Phosphorus Magnesium Total Bilirubin AST ALT Alkaline Phosphatase Total Protein Albumin Hold Yellow Top 12/06/23 05:24 MCV MCH MCHC RDW Plt Count MPV Immature Gran % (Auto) Neut % (Auto) Lymph % (Auto) [place] % (Auto) Eos % (Auto) Baso % (Auto) Lymph # (Auto) [place] # (Auto) Eos # (Auto) Baso # (Auto) Abs Immat Gran (auto) Absolute Neuts (auto) Absolute Nucleated RBC Nucleated RBC % (auto) VBG pH VBG pCO2 VBG pO2 VBG HCO3 VBG O2 Saturation VBG Base Excess Anion Gap Estim Creat Clear Calc Estimated GFR POC Glucose 136 H Random Glucose Calcium Phosphorus Magnesium Total Bilirubin AST ALT Alkaline Phosphatase Total Protein Albumin Hold Yellow Top Assessment and Plan (1) Metabolic encephalopathy: Status: Acute (2) Pulmonary aspiration: Status: Acute Plan 73-year-old gentleman with underlying aortic stenosis, AFib on anticoagulation admitted on 11/23/2023 with dizziness and weakness.? On ER evaluation patient hypotensive with poor response to initial IV fluid resuscitation requiring pressor support.? Also, with significant coagulopathy with INR greater than 26 acute renal failure, left lower extremity cellulitis with hospital course complicated by pancreatitis with large volume emesis with resultant aspiration and cardiac arrest with successful resuscitation after 7 minutes of CPR, intubated during the code extubated 11/29/2023.? On 12/01/2023 with pulmonary aspirations requiring re-intubation.? CT abdomen/pelvis with low-grade pancreatitis and duodenal narrowing.? Extubated 12/03/2023. Pt failed swallow evaluation, currently receiving tube feeds through NGT. Attempted to switch to NJT but IR was unable to advance the tube into jejunum. The patient taken off pressors and transferred to [facility] floor.? Possible new sepsis, unspecified Tachycardia, tachypnea, fever repeat Blood culture, lactic acid 2.1, respiratory pathogen panel pending, C diff, GI panel, UA/cx ordered, chest CT to rule out continuous aspiration Continue broad-spectrum antibiotics vancomycin and Zosyn If patient condition worsens consider ICU consultation Acute blood loss anemia secondary to GI bleed due to supratherapeutic INR, greater than 26 INR 1.6 on 12/01/23 Treated with packed red blood cells and FFP Hemoglobin dropped 5.7 points on admission No clear source of bleeding found today HH 7.0/23.2, tx 2 units PRBC, Discussed with GI nothing to do at this time diagnostically Hypomagnesemia, 1.4 2 g IV magnesium now Hypokalemia. 2.7 IV potassium now check EKG Diarrhea Rectal tube check stool studies and cdiff Septic shock versus hemorrhagic shock with severe coagulopathy. Resolved INR of 26 on admission Treated aggressively with packed red blood cells and FFP transfusion to correct coagulopathy s/p Levophed in the ICU for vasopressor support BP now stable ARABELLA. Resolved Likely secondary to ATN in light of septic shock and GI bleed creat peaked at 4.91 , down to 1.21 Monitor Cardiac arrest 11/26/2023 Patient had large amount of vomitus and aspirated going into PE arrest, code blue called, patient regained ROSC after 7 minutes of CPR Patient intubated and ventilated, extubated on 11/29/23, reintubated on 12/01/2023 due to ongoing aspiration then subsequently extubated on 12/03/2023 Atrial fibrillation Continue amiodarone Continue to hold warfarin in light of GI bleed, coagulopathy and anemia Group a Streptococcus pyogenes bacteremia Blood culture from 11/23/2023 1/ Has been on vancomycin and Zosyn Repeat cultures pending Chronic leg wounds Multiple organisms growing including group a strep pyogenes, Serratia marcescens and stenotrophomonas maltophilia Seen and evaluated by wound care nurse 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 Resolved With partial gastric outlet obstruction GI following lipase 12/06/23>47 DVT prophylaxis with pneumatic compression boots Full code Continue hospitalization for treatment of possible new sepsis requiring IV antibiotics and further diagnostic and laboratory workup as well as specialty consultation Quality Stroke Does the patient have a stroke diagnosis?: No VTE Prior VTE?: No VTE Risk Level:: Medical - moderate - high VTE Device Contraindication: Treatment Not Tolerated VTE Drug Contraindication: N/A - Med Ordered
[2023-12-06 11:59] LABS: Glucose, Whole Blood 133 mg/dL (60-115)
[2023-12-06 15:18] LABS: Hematocrit 23.2 % (42.0-52.0); Mean Corpuscular HGB Conc 30.2 g/dl (31.0-36.0); Mean Corpuscular Hemoglobin 28.2 pg (27.0-33.0); Mean Corpuscular Volume 93.5 fL (80.0-98.0); Mean Platelet Volume 11.8 fL (9.4-12.4); Platelet Count 163 X10*3/uL (160-400); Red Blood Count 2.48 X10*6/uL (4.60-5.80); Red Cell Distribution Width 18.1 % (11.0-16.0); White Blood Count 6.3 X10*3/uL (4.8-10.8)
[2023-12-06 15:54] LABS: Alanine Aminotransferase 12 U/L (0-40); Albumin Level 2.1 g/dL (3.5-5.0); Alkaline Phosphatase 49 U/L (39-117); Anion Gap 12 (12-20); Aspartate Amino Transferase 19 U/L (5-37); Bilirubin Total 1.6 mg/dL (0.0-1.0); Blood Urea Nitrogen 27 mg/dL (9-16); Calcium 6.6 mg/dL (8.4-10.2); Carbon Dioxide 19 mmol/L (22-29); Chloride 122 mmol/L (96-108); Creatinine Clr Calc Pharmacy 78.6; Estimated Glomerular Filt Rate 59; Glucose Random 121 mg/dL (60-115); Lactate Dehydrogenase 253 U/L (118-273); Lipase 47 U/L (8-78); Magnesium 1.4 mg/dL (1.6-2.6); Phosphorus 1.8 mg/dL (2.7-4.5); Potassium 2.7 mmol/L (3.3-5.1); Sodium 150 mmol/L (135-145); Total Protein 5.8 g/dL (6.5-8.0)
[2023-12-06 15:55] LABS: Lactic Acid 2.1 mmol/L (0.5-2.0)
[2023-12-06 16:33] LABS: Appearance Urine Cloudy; Color Urine Dark Yellow; Glucose Urine UA Negative (Negative); Leukocyte Esterase Urine Moderate (2+) (Negative); Nitrite Urine Negative (Negative); PH 5.5 (5.0-9.0); UMIC TRIGGER UACC YES; Urine Blood Moderate (2+) (Negative); Urine Ketones Negative (Negative); Urine Protein 100 (2+) mg/dL (Neg-Trace)
[2023-12-06 16:57] LABS: Bacteria Urine None Seen (None Seen); Hyaline Casts Urine 0-2 /LPF (0-2); RBC Urine >20 /HPF (0-2); Squamous Epithelial Cell Urine 0-2 /HPF (0-2); UACC Culture Trigger YES; WBC Urine >50 /HPF (0-5)
[2023-12-06 17:15] LABS: Reflex Lactate? Lactic Acid Added
[2023-12-06 17:24] LABS: VBG Base Excess 7.2 mmol/L; VBG HCO3 28 mmol/L (22-26); VBG pCO2 28 mmHg; VBG pO2 76 mmHg
[2023-12-06] MEDS: Potassium Chloride/H20 10 MEQ/100 ML PIGGYBACK 100 MEQ IV ×2 (17:25→19:03)
[2023-12-06 17:29] LABS: CDiff Gene PCR NEGATIVE (Negative)
--- NOTE | 2023-12-06 17:43 | W.MHC.ACPN ---
Advanced Care Planning Note Advanced Care Planning Note Time spent (in minutes): 10 Narrative: I spoke over the phone with the patient?s sister and Health Care Proxy, Maggy, regarding the patient's clinical course and treatment options for his multiple active medical issues following cardiac arrest. These issues include aspiration pneumonia, severe anemia, hypernatremia, hypokalemia, diarrhea with a rectal tube, bacteremia, wound infection, malnutrition, encephalopathy d/t anoxic brain injury, and persistent fevers. Given the lack of significant improvement and ongoing decline, Maggy expressed that the patient would not want to undergo another CPR, be placed on life support, or have a permanent feeding tube. Therefore, she requested to change the patient?s status to DNR/DNI. This conversation was witnessed by Katelyn Fraser and Shashank Ray Problems Discussed (1) Metabolic encephalopathy: (2) Pulmonary aspiration:
[2023-12-06 17:48] LABS: ~Lactic Acid-LAB USE ONLY 1.4 mmol/L (0.5-2.0)
[2023-12-06] MEDS: Potassium Chloride Packet 20 MEQ PACKET 40 MEQ PO (17:49)
[2023-12-06 17:53] LABS: VBG pH 7.61 (7.32-7.43)
[2023-12-06 17:55] LABS: Venous Blood Gas Refer to POC result
--- NOTE | 2023-12-06 18:05 | PHA.PROG ---
Admission Date/Time: November 23, 2023 06:34 Indication: BACTEREMIA Weight in k.9 kg Adjusted body weight in K.7 [place] body weight in Kg: Obesity Dosing Indication % IBW: 84% OVER IBW Serum Creatinine - Last 168 Hours 11/29/23 11/30/23 11/30/23 18:21 05:03 18:02 Creatinine 2.23 H 1.96 H 1.58 H 12/01/23 12/01/23 12/02/23 05:24 19:58 05:19 Creatinine 1.57 H 1.31 1.33 12/02/23 12/03/23 12/04/23 19:37 05:08 04:58 Creatinine 1.20 1.20 1.50 H 12/04/23 12/05/23 12/06/23 20:31 15:09 15:12 Creatinine 1.38 1.58 H 1.21 Estimated CrCl and GFR - Last 168 Hours 11/29/23 11/30/23 11/30/23 18:21 05:03 18:02 Estim Creat Clear Calc 42.9 47.6 59.0 Estimated GFR 29 34 43 12/01/23 12/01/23 12/02/23 05:24 19:58 05:19 Estim Creat Clear Calc 59.3 71.1 69.6 Estimated GFR 44 54 53 12/02/23 12/03/23 12/04/23 19:37 05:08 04:58 Estim Creat Clear Calc 77.1 77.1 61.2 Estimated GFR 60 60 46 12/04/23 12/05/23 12/06/23 20:31 15:09 15:12 Estim Creat Clear Calc 67.3 58.4 78.6 Estimated GFR 51 43 59 Vancomycin Loading Dose: 2000 MG Current Vancomycin Dosing Regimen: 1 GRAM Q12 HRS Vancomycin Monitoring using AUC goal of 400 - 600 range with trough as surrogate marker: Date and Time for next Vancomycin Level to be drawn:12/08/399 Pharmacist Comments on Vancomycin Plan:PREDICTED AUC OF 549 Vancomycin dosing will take advantage of [employer] as a clinical decision support tool that uses Bayesian modeling to calculate individual patient's pharmacokinetic parameters and forecast the patient's drug concentration time course with the target goal AUC 24 range of 400 - 600 mg/L/hr.
[2023-12-06] MEDS: Magnesium Sulfate/H2O 2 GM/50 ML PIGGYBACK IV (18:06)
--- NOTE | 2023-12-06 18:08 | PM.EVENT ---
Event Note Date of Service: 12/06/23 Event Note: Pt seen/examined, chart reviewed and plan discussed with Katelyn. I also spoke to HCP (Sister Maggy) and changed pt's status to DNR/DNI Time Spent With Patient Time: Total time managing care of this patient today ____ minutes.
[2023-12-06] MEDS: Acetaminophen 325 MG TABLET 650 MG PO (18:52)
[2023-12-06 19:11] LABS: Glucose, Whole Blood 112 mg/dL (60-115)
--- NOTE | 2023-12-06 20:20 | PC.NURSE ---
Patient alert and oriented to time person and place, @ 0725 parts expediter (Raffy) denied trying draws on patient due to yesterday (12/04) unsuccessful attempts. Provider Ernesto Fraser notified via [employer] @ 0802 suggested to use midline. Heparin order see MAR for administration time. Heparin first attempt to right midline. No return of blood. Nurse tim attempted venous draw on left hand and upper left arm with no blood return. Reached out to provided for additional support @ 10:30 Second order of heparin order for left arm, no successful attempt to draw blood. During which time midline attempts were done over then period. At 13:04 Nursing vocational rehabilitation supervisor was tiger texted to see if ICU Nurse or ER nurse could aid in blood draw. Registered nurse Edelmira called from ICU, no nurse able to support blood return at time. Only one nurse trained in ultrasound guided iv insertion. at 15: Provider at bedside to try to draw labs of mid line. With change of shift parts expediter Miguel was able to successfully get blood return for labs. Verbal order given at bedside to discontinue promate and iv fluids at time due to the state of patient. Orders were updated by provider after receiving labs. See MAR for medication administration.
[2023-12-06 20:27] LABS: Glucose, Whole Blood 111 mg/dL (60-115)
[2023-12-06] MEDS: vancomycin/NS 2,000 MG/500 ML PLAST..BAG 250 MG IV (21:10)
[2023-12-07] VITALS (8 sets, daily range): BP systolic 111–126; BP diastolic 63–82; PULSE 79–107; RESP 19–22; TEMP 36.3–38.1; O2SAT 95–100
[2023-12-07] MEDS: 0.9 % Sodium Chloride Flush 3 ML SYRINGE IVFLUSH
[2023-12-07] MEDS: Acetaminophen 325 MG TABLET 650 MG PO (01:13)
[2023-12-07] MEDS: Piperacillin Sodium/Tazobactam 3.375 GM in 0.9 % Sodium Chloride 50 ML IV ×2 (01:14→10:14)
[2023-12-07] MEDS: Amiodarone HCL 200 MG TABLET 400 MG PO ×2 (01:27→10:14)
[2023-12-07 01:40] LABS: Glucose, Whole Blood 113 mg/dL (60-115)
[2023-12-07] MEDS: Heparin Sodium,Porcine 5,000 UNIT/ML VIAL 5000 UNIT SUBCUT ×2 (02:49→10:13)
--- NOTE | 2023-12-07 04:52 | PC.NURSE ---
Tube feedings and fluids held during previous shift, verified with MD with verbal order to continue to hold fluids and feedings at this time. pt medicated with acetaminophen 650 mg via NG for elevated temp x 2. tolerated transfusion of 2U RBC's well. pt agitated at times in regards to current NPO status. pt alert and oriented x 2, able to state name, year, place, difficulty with details of situation.
[2023-12-07] MEDS: vancomycin HCL 1,000 MG in 0.9 % Sodium Chloride 250 ML 270 MG IV (05:46)
[2023-12-07 06:30] LABS: Hematocrit 27.4 % (42.0-52.0); Hemoglobin 8.6 g/dl (14.0-18.0); Mean Corpuscular HGB Conc 31.4 g/dl (31.0-36.0); Mean Corpuscular Hemoglobin 29.4 pg (27.0-33.0); Mean Corpuscular Volume 93.5 fL (80.0-98.0); Mean Platelet Volume 11.4 fL (9.4-12.4); NRBC Pct Auto 1.2 /100WBC (0.0-0.2); Platelet Count 258 X10*3/uL (160-400); Red Blood Count 2.93 X10*6/uL (4.60-5.80); Red Cell Distribution Width 17.2 % (11.0-16.0); White Blood Count 6.8 X10*3/uL (4.8-10.8)
[2023-12-07 06:39] LABS: INTERNATIONAL NORM RATIO 1.8 (0.9-1.1); Prothrombin Time 21.8 SEC (11.1-13.3)
[2023-12-07 07:16] LABS: Glucose, Whole Blood 114 mg/dL (60-115)
[2023-12-07 07:27] LABS: Anion Gap 16 (12-20); Blood Urea Nitrogen 32 mg/dL (9-16); Calcium 8.2 mg/dL (8.4-10.2); Carbon Dioxide 22 mmol/L (22-29); Chloride 118 mmol/L (96-108); Creatinine Clr Calc Pharmacy 61.7; Estimated Glomerular Filt Rate 45; Glucose Random 123 mg/dL (60-115); Magnesium 1.9 mg/dL (1.6-2.6); Potassium 3.6 mmol/L (3.3-5.1); Sodium 152 mmol/L (135-145)
[2023-12-07 08:28] LABS: Adenovirus PCR Not Detected (Not Detect.); Bordetella parapertussis PCR Not Detected (Not Detect.); Bordetella pertussis PCR Not Detected (Not Detect.); Chlamydia pneumoniae PCR Not Detected (Not Detect.); Coronavirus 229E PCR Not Detected (Not Detect.); Coronavirus HKU1 PCR Not Detected (Not Detect.); Coronavirus NL63 PCR Not Detected (Not Detect.); Coronavirus OC43 PCR Not Detected (Not Detect.); Human metapneumovirus PCR Not Detected (Not Detect.); Influenza A PCR Not Detected (Not Detect.); Influenza B PCR Not Detected (Not Detect.); Mycoplasma pneumoniae PCR Not Detected (Not Detect.); Parainfluenza 1 PCR Not Detected (Not Detect.); Parainfluenza 2 PCR Not Detected (Not Detect.); Parainfluenza 3 PCR Not Detected (Not Detect.); Parainfluenza 4 PCR Not Detected (Not Detect.); RSV PCR Not Detected (Not Detect.); Rhino/Enterovirus PCR Not Detected (Not Detect.)
[2023-12-07 08:41] LABS: SARS-CoV-2 PCR Not Detected (Not Detect.)
--- NOTE | 2023-12-07 09:22 | P.PNIM_ITS ---
Subjective Subjective Date of Service: 12/07/23 Review of Systems Follow up Transfer from ICU, hypotension require vasopressor support, GI bleed with supratherapeutic INR, pancreatitis, cardiac arrest, Pulmonary aspiration NGT more awake today, oriented to person and place but still encephalopathic wants to eat and drink discussed with sister, HCP, re patients prognosis, She would like to make patient S[employer]NER and take him home on hospice Physical Exam 2 Vital Signs: Vital Signs: Last Vital Signs Temp 97.4 F 12/07/23 08:00 Pulse 102 H 12/07/23 08:00 Resp 19 12/07/23 08:00 BP 126/78 12/07/23 08:00 Pulse Ox 97 12/07/23 08:00 O2 Del Method Nasal Cannula 12/07/23 08:00 O2 Flow Rate 2 12/07/23 08:00 FiO2 30 12/03/23 11:10 BMI result Body Mass Index 42.7 Objective Data Active Medications Acetaminophen (Acetaminophen 325 Mg Tablet) 650 mg PO Q6H PRN PRN Reason: Fever Last Admin: 12/07/23 01:13 Dose: 650 mg Documented By: ABBEY Amiodarone HCl (Amiodarone Hcl 200 Mg Tablet) 400 mg PO BID [facility] Last Admin: 12/07/23 01:27 Dose: 400 mg Documented By: ABBEY Bisacodyl (Bisacodyl 5 Mg Tablet.Dr) 10 mg PO DAILY PRN PRN Reason: Constipation Bumetanide (Bumetanide 1 Mg/4 Ml Vial) 1 mg IVPUSH BID@0900,1700 [facility]; Protocol Last Admin: 12/06/23 17:11 Dose: 1 mg Documented By: MELANI Chlorhexidine Gluconate (Chlorhexidine Gluc Oral Rinse 15 Ml Mouthwash) 15 ml BUCCAL TID [facility] Last Admin: 12/06/23 22:00 Dose: Not Given Documented By: ABBEY Non-Admin Reason: Med Not Available Collagenase (Collagenase Clostridium Hist. 30 Gm Tube) 1 appl TOPICAL DAILY [facility]; Protocol Last Admin: 12/06/23 10:28 Dose: 1 appl Documented By: MELANI Glucose (Glucose Gel 15 Gm Gel..Gram.) 15 gm PO Q15M PRN; Protocol PRN Reason: per Hypoglycemia Standing Ord. Heparin Sodium (Porcine) (Heparin Sodium,Porcine 5,000 Unit/Ml Vial) 5,000 unit SUBCUT Q8H [facility] Last Admin: 12/07/23 02:49 Dose: 5,000 unit Documented By: ABBEY Piperacillin Sod/Tazobactam (Sod 3.375 gm/ Sodium Chloride) 50 mls @ 100 mls/hr IV Q6H [facility] Last Infusion: 12/07/23 01:44 Dose: Infused Documented By: ABBEY Dextrose (D5w) 1,000 mls @ 75 mls/hr IVCONT .[id number] [facility] Last Admin: 12/06/23 19:00 Dose: Not Given Documented By: ABBEY Non-Admin Reason: Physician Held Med Dextrose (D10) 250 mls @ 750 mls/hr IV Q15M PRN; Protocol PRN Reason: per Hypoglycemia Standing Ord. Vancomycin HCl 1,000 mg/ (Sodium Chloride) 270 mls @ 270 mls/hr IV Q12H [facility] Last Infusion: 12/07/23 06:46 Dose: Infused Documented By: ABBEY Insulin Human Lispro (Insulin Lispro 100 Unit/Ml 3 Ml Vial) 0 unit SUBCUT Q6H [facility]; Protocol Last Admin: 12/07/23 06:00 Dose: Not Given Documented By: ABBEY Non-Admin Reason: No Insulin Coverage Ondansetron HCl (Ondansetron Hcl 4 Mg/2 Ml Vial) 4 mg IVPUSH Q6H PRN PRN Reason: Nausea and Vomiting Last Admin: 11/25/23 02:52 Dose: 4 mg Documented By: BROWN Pharmacy Consult (Consult Rx Parenteral Nutrition Ordering) 1 each MISCELLANE DAILY PRN PRN Reason: Consult order Pharmacy Consult (Consult Rx Vancomycin Dosing) 1 each MISCELLANE DAILY PRN PRN Reason: Consult order Potassium Chloride (Potassium Chloride Packet 20 Meq Packet) 40 meq PO DAILY [facility] Last Admin: 12/06/23 17:49 Dose: 40 meq Documented By: MELANI Senna (Senna [place] Extract Oral Syrup 15 Ml Syrup) 15 ml PO BEDTIME [facility] Last Admin: 12/06/23 21:15 Dose: Not Given Documented By: ABBEY Non-Admin Reason: Patient Condition Contraindication Sodium Chloride (0.9 % Sodium Chloride Flush 3 Ml Syringe) 3 ml IVFLUSH QSHIFT [facility] Last Admin: 12/07/23 07:41 Dose: Not Given Documented By: MARIA TERESA Non-Admin Reason: Previously Administered Labs 12/07/23 06:01 12/07/23 06:01 Labs: Laboratory Results - last 24 hr 12/06/23 12/06/23 12/06/23 11:49 15:11 15:12 MCV 93.5 MCH 28.2 MCHC 30.2 L RDW 18.1 H Plt Count 163 D MPV 11.8 Absolute Nucleated RBC 0.060 H Nucleated RBC % (auto) 1.0 H PT INR VBG pH VBG pCO2 VBG pO2 VBG HCO3 VBG O2 Saturation VBG Base Excess Anion Gap 12 Estim Creat Clear Calc 78.6 Estimated GFR 59 POC Glucose 133 H Random Glucose 121 H Lactic Acid 2.1 H* Lactic Acid F/U @ 2Hr Calcium 6.6 L D Phosphorus 1.8 L Magnesium 1.4 L* Total Bilirubin 1.6 H AST 19 ALT 12 Alkaline Phosphatase 49 Lactate Dehydrogenase 253 Total Protein 5.8 L Albumin 2.1 L Lipase 47 Urine Color Urine Appearance Urine pH Ur Specific [place] Urine Protein Urine Glucose (UA) Urine Ketones Urine Blood Urine Nitrite Ur Leukocyte Esterase Urine RBC Urine WBC Ur Squamous Epith Cells Urine Bacteria Hyaline Casts Urine Yeast Respiratory Panel [place] Adenovirus (Rapid PCR) B.pert (TEM-PCR) B.parapertussis DNA PCR C. pneumoniae DNA (PCR) C. difficile Tox B Gene Coronavirus OC43 (PCR) Coronavirus HKU1 (PCR) Coronavirus 229E (PCR) Coronavirus NL63 (PCR) Human Metapneumovir PCR Influenza A (RT-PCR) Influenza B (RT-PCR) M. pneumoniae (PCR) Parainfluenza 1 (PCR) Parainfluenza 2 (PCR) Parainfluenza 3 (PCR) Parainfluenza 4 (PCR) RSV (PCR) Entero/Rhino (PCR) SARS-CoV-2 RNA (RT-PCR) Blood Type Antibody Screen Crossmatch 12/06/23 12/06/23 12/06/23 16:13 16:14 16:16 MCV MCH MCHC RDW Plt Count MPV Absolute Nucleated RBC Nucleated RBC % (auto) PT INR VBG pH 7.61 H* VBG pCO2 28 VBG pO2 76 VBG HCO3 28 H VBG O2 Saturation TNP VBG Base Excess 7.2 Anion Gap Estim Creat Clear Calc Estimated GFR POC Glucose Random Glucose Lactic Acid Lactic Acid F/U @ 2Hr Calcium Phosphorus Magnesium Total Bilirubin AST ALT Alkaline Phosphatase Lactate Dehydrogenase Total Protein Albumin Lipase Urine Color Dark Yellow Urine Appearance Cloudy Urine pH 5.5 Ur Specific [place] 1.020 Urine Protein 100 (2+) H Urine Glucose (UA) Negative Urine Ketones Negative Urine Blood Moderate (2+) H Urine Nitrite Negative Ur Leukocyte Esterase Moderate (2+) H Urine RBC >20 H Urine WBC >50 H Ur Squamous Epith Cells 0-2 Urine Bacteria None Seen Hyaline Casts 0-2 Urine Yeast Present Respiratory Panel [place] Adenovirus (Rapid PCR) B.pert (TEM-PCR) B.parapertussis DNA PCR C. pneumoniae DNA (PCR) C. difficile Tox B Gene NEGATIVE Coronavirus OC43 (PCR) Coronavirus HKU1 (PCR) Coronavirus 229E (PCR) Coronavirus NL63 (PCR) Human Metapneumovir PCR Influenza A (RT-PCR) Influenza B (RT-PCR) M. pneumoniae (PCR) Parainfluenza 1 (PCR) Parainfluenza 2 (PCR) Parainfluenza 3 (PCR) Parainfluenza 4 (PCR) RSV (PCR) Entero/Rhino (PCR) SARS-CoV-2 RNA (RT-PCR) Blood Type O Positive Antibody Screen NEGATIVE Crossmatch See Detail 12/06/23 12/06/23 12/06/23 17:30 19:07 20:23 MCV MCH MCHC RDW Plt Count MPV Absolute Nucleated RBC Nucleated RBC % (auto) PT INR VBG pH VBG pCO2 VBG pO2 VBG HCO3 VBG O2 Saturation VBG Base Excess Anion Gap Estim Creat Clear Calc Estimated GFR POC Glucose 112 111 Random Glucose Lactic Acid Lactic Acid F/U @ 2Hr 1.4 Calcium Phosphorus Magnesium Total Bilirubin AST ALT Alkaline Phosphatase Lactate Dehydrogenase Total Protein Albumin Lipase Urine Color Urine Appearance Urine pH Ur Specific [place] Urine Protein Urine Glucose (UA) Urine Ketones Urine Blood Urine Nitrite Ur Leukocyte Esterase Urine RBC Urine WBC Ur Squamous Epith Cells Urine Bacteria Hyaline Casts Urine Yeast Respiratory Panel [place] See Note Adenovirus (Rapid PCR) Not Detected B.pert (TEM-PCR) Not Detected B.parapertussis DNA PCR Not Detected C. pneumoniae DNA (PCR) Not Detected C. difficile Tox B Gene Coronavirus OC43 (PCR) Not Detected Coronavirus HKU1 (PCR) Not Detected Coronavirus 229E (PCR) Not Detected Coronavirus NL63 (PCR) Not Detected Human Metapneumovir PCR Not Detected Influenza A (RT-PCR) Not Detected Influenza B (RT-PCR) Not Detected M. pneumoniae (PCR) Not Detected Parainfluenza 1 (PCR) Not Detected Parainfluenza 2 (PCR) Not Detected Parainfluenza 3 (PCR) Not Detected Parainfluenza 4 (PCR) Not Detected RSV (PCR) Not Detected Entero/Rhino (PCR) Not Detected SARS-CoV-2 RNA (RT-PCR) Not Detected Blood Type Antibody Screen Crossmatch 12/07/23 12/07/23 12/07/23 00:11 06:01 06:43 MCV 93.5 MCH 29.4 MCHC 31.4 RDW 17.2 H Plt Count 258 D MPV 11.4 Absolute Nucleated RBC 0.080 H Nucleated RBC % (auto) 1.2 H PT 21.8 H INR 1.8 H VBG pH VBG pCO2 VBG pO2 VBG HCO3 VBG O2 Saturation VBG Base Excess Anion Gap 16 Estim Creat Clear Calc 61.7 Estimated GFR 45 POC Glucose 113 114 Random Glucose 123 H Lactic Acid Lactic Acid F/U @ 2Hr Calcium 8.2 L D Phosphorus Magnesium 1.9 Total Bilirubin AST ALT Alkaline Phosphatase Lactate Dehydrogenase Total Protein Albumin Lipase Urine Color Urine Appearance Urine pH Ur Specific [place] Urine Protein Urine Glucose (UA) Urine Ketones Urine Blood Urine Nitrite Ur Leukocyte Esterase Urine RBC Urine WBC Ur Squamous Epith Cells Urine Bacteria Hyaline Casts Urine Yeast Respiratory Panel [place] Adenovirus (Rapid PCR) B.pert (TEM-PCR) B.parapertussis DNA PCR C. pneumoniae DNA (PCR) C. difficile Tox B Gene Coronavirus OC43 (PCR) Coronavirus HKU1 (PCR) Coronavirus 229E (PCR) Coronavirus NL63 (PCR) Human Metapneumovir PCR Influenza A (RT-PCR) Influenza B (RT-PCR) M. pneumoniae (PCR) Parainfluenza 1 (PCR) Parainfluenza 2 (PCR) Parainfluenza 3 (PCR) Parainfluenza 4 (PCR) RSV (PCR) Entero/Rhino (PCR) SARS-CoV-2 RNA (RT-PCR) Blood Type Antibody Screen Crossmatch Assessment and Plan (1) Metabolic encephalopathy: Status: Acute (2) Pulmonary aspiration: Status: Acute Plan 73-year-old gentleman with underlying aortic stenosis, AFib on anticoagulation admitted on 11/23/2023 with dizziness and weakness.? On ER evaluation patient hypotensive with poor response to initial IV fluid resuscitation requiring pressor support.? Also, with significant coagulopathy with INR greater than 26 acute renal failure, left lower extremity cellulitis with hospital course complicated by pancreatitis with large volume emesis with resultant aspiration and cardiac arrest with successful resuscitation after 7 minutes of CPR, intubated during the code extubated 11/29/2023.? On 12/01/2023 with pulmonary aspirations requiring re-intubation.? CT abdomen/pelvis with low-grade pancreatitis and duodenal narrowing.? Extubated 12/03/2023. Pt failed swallow evaluation, currently receiving tube feeds through NGT. Attempted to switch to NJT but IR was unable to advance the tube into jejunum. The patient taken off pressors and transferred to [facility].? Comfort measures only Discussed patients prognosis and current physical condition with sister, HCP, she would like to make the patient comfort measures only, but requested that he be able to eat and drink with the understanding that the patient may cough, aspirate or choke as no formal speech therapy consultation has taken place. She stated understanding. pureed diet ordered, slow spoon feeds monitoring for abmormal swallowing or overt choking Hospice consultation in am, family would like to take the patient home Morphine, Lorazepam as needed, scopalamine patch Q72hrs NO lab draws or vital signs, all unnecessary medications stopped Severe sepsis secondary to HCAP, LE wounds, pyoderma gangrenosa Tachycardia, tachypnea, fever, lactic acid 2.1> 12/06/23 (abnormal vs 12pm, lactic drawn at 3pm) repeat Blood culture pending, respiratory pathogen panel negative, C diff negative, GI panel pending, UA/cx ordered chest CT Bibasilar consolidation with patchy groundglass opacities likely to suggest HCAP stopped vancomycin and Zosyn Acute blood loss anemia secondary to GI bleed due to supratherapeutic INR, greater than 26 INR 1.8 Treated with packed red blood cells and FFP in ICU, s/p 2 units of PRBC on 12/06/23 Hemoglobin dropped 5.7 points on admission No clear source of bleeding found HH today 8.6/27.4 NG tube feeding Secondary to partial gastric outlet obstruction Feed at 50 mL an hour with free water flushes but held for now light of possible continuous aspiration will remove Hypomagnesemia. Resolved IV replacement Hypokalemia. resolved IV and po replacement Diarrhea Rectal tube keep in for comfort stool studies pending cdiff negative Septic shock versus hemorrhagic shock with severe coagulopathy. Resolved INR of 26 on admission Treated aggressively with packed red blood cells and FFP transfusion to correct coagulopathy s/p Levophed in the ICU for vasopressor support BP now stable ARABELLA. Resolved Likely secondary to ATN in light of septic shock and GI bleed creat peaked at 4.91 , down to 1.21 Monitor Cardiac arrest 11/26/2023 Patient had large amount of vomitus and aspirated going into PE arrest, code blue called, patient regained ROSC after 7 minutes of CPR Patient intubated and ventilated, extubated on 11/29/23, reintubated on 12/01/2023 due to ongoing aspiration then subsequently extubated on 12/03/2023 Atrial fibrillation stop amiodarone Continue to hold warfarin in light of GI bleed, coagulopathy and anemia Group a Streptococcus pyogenes bacteremia Blood culture from 11/23/2023 1/2 Has been on Zosyn, started on Vancomycin 12/06/23 Repeat cultures pending Chronic leg wounds Multiple organisms growing including group a strep pyogenes, Serratia marcescens and stenotrophomonas maltophilia Seen and evaluated by wound care nurse Pyoderma gangrenosum and 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 Resolved With partial gastric outlet obstruction GI following lipase 12/06/23>47 DVT prophylaxis with pneumatic compression boots Attending Dr. Rogers Full code DISPO Hospice consultation for [employer] Continue hospitalization for treatment of possible new sepsis requiring IV antibiotics and further diagnostic and laboratory workup as well as specialty consultation Quality Stroke Does the patient have a stroke diagnosis?: No VTE Prior VTE?: No VTE Risk Level:: Medical - moderate - high VTE Device Contraindication: Treatment Not Tolerated VTE Drug Contraindication: N/A - Med Ordered
[2023-12-07 09:41] LABS: Adenovirus F 40/41 Not Detected (Not Detect.); Astrovirus Not Detected (Not Detect.); Campylobacter Not Detected (Not Detect.); Cryptosporidium Not Detected (Not Detect.); Cyclospora cayetanensis Not Detected (Not Detect.); E. coli EAEC Not Detected (Not Detect.); E. coli EPEC Not Detected (Not Detect.); E. coli ETEC Not Detected (Not Detect.); E. coli STEC Not Detected (Not Detect.); Entamoeba histolytica Not Detected (Not Detect.); Giardia lamblia Not Detected (Not Detect.); Plesiomonas shigelloides Not Detected (Not Detect.); Rotavirus A Not Detected (Not Detect.); Salmonella Not Detected (Not Detect.); Sapovirus Not Detected (Not Detect.); Shigella sp./EIEC Not Detected (Not Detect.); Vibrio Not Detected (Not Detect.); Vibrio Cholerae Not Detected (Not Detect.); Yersinia enterocolitica Not Detected (Not Detect.)
[2023-12-07] MEDS: Bumetanide 1 MG/4 ML VIAL IVPUSH (10:13)
[2023-12-07] MEDS: Collagenase Clostridium Hist. 30 GM TUBE 1 APPL TOPICAL (10:14)
[2023-12-07] MEDS: Potassium Chloride Packet 20 MEQ PACKET 40 MEQ PO (10:14)
[2023-12-07] MEDS: Scopolamine 1.5 MG PATCH.TD.3 EAR-BEHIND (11:12)
--- NOTE | 2023-12-07 11:47 | MHC.CM.PN ---
Addendum entered by Kanika Martínez 12/07/23 16:20: Second IMM given 12/06. Addendum entered by Kanika Masterserland 12/07/23 15:10: Per hospice, pt and family agree with hospice services, they will have DME delivered tomorrow prior to pt discharging. BLS/[facility] transport pre-booked for tomorrow 12/07 at 12:30pm per hospice request. Original Note: EMR reviewed and per MD rounds, pt is not medically cleared for discharge today. DCP: home with hospice. This CM met with pt and his sister Maggy/HCP at bedside to discuss and both are agreeable to hospice info session and planning to begin for hospice at home. [facility] will provide an info session this afternoon.
[2023-12-07 12:03] LABS: Glucose, Whole Blood 116 mg/dL (60-115)
--- NOTE | 2023-12-07 12:09 | MHC.SL.SWA ---
Risk of Aspiration Due to: Hx of Recent Extubation Dysphasia Diet Status: Recommend final decision regarding PO to be made between medical team and pt/family Liquid Consistency and Strategies for Safe Swallow: Liquid Intake Recommendation: Thin Liquid Intake Strategies: Liquids by Teaspoon Only Solid Food Consistency: Dietary Recommendations: Pureed (NDD1) Oral Medication Intake: Crushed with Puree Please contact the pharmacy regarding appropriate crushable or liquid drug formulations that are available whenever modified delivery is recommended. Compensatory Strategies and Precautions to be Taken for Safe Swallow: Sitting Upright (90 deg) Double Swallow No Straw Small Bites and Sips Alternate Liquids/Solids Rate of Ingestion Change Supervision While Eating and Drinking for Safe Swallow: Total Assistance (1:1) Recommendation for Speech: Comment: Based on today's evaluation and chart review, [facility] recommendation is for puree solids, thin liquids (teaspoon only), and pills crushed in puree. However, pt and sister provided that [facility] recommendation is for the safest, least restrictive diet however the ultimate decision should be made with medical team/pt/family if they are moving towards PAPER BAG MAKING MACHINIST. If patient proceeds PAPER BAG MAKING MACHINIST, recommend [facility] for palliative care. Recommend frequent oral care. Hospitalist Katelyn Fraser and RN made aware of [facility] visit update. City Treasurer Clinican/Clinical Fellow: No Supervisory Statement: I have reviewed and agree with the student/clinical fellow's documentation: N/A Speech Language Pathologist: Paty Wharton M.A., [facility]
--- NOTE | 2023-12-07 14:53 | MHC.CLN ---
F/U PATIENT EXTUBATED 12/02. STATUS CHANGED TO ROLL COVERER 12/06/23. SEEN BY DIVER ASSISTANT WITH DIET REC FOR PUREE CONSISTENCY. DIET=PUREE. SEE WOUND RN NOTE FOR BLE SKIN INTEGRITY. RD AVAILABLE NEEDED.
--- NOTE | 2023-12-08 07:33 | P.DS_ITS ---
DS: Providers Provider Date of Service: 12/08/23 <Katelyn Fraser NP - Last Filed: 12/15/23 13:39> Date of admission: 11/23/23 06:34 <Katelyn Fraser NP - Last Filed: 12/15/23 13:39> Primary care physician: JOSE Alonzo <Katelyn Fraser NP - Last Filed: 12/15/23 13:39> Consults: 11/23/23 08:41 Consult to Wound Care Routine Reason for consultation: Worsening redness & drainage RLE 11/24/23 19:44 Consult to General Surgery Stat Consulting Provider: [facility] Reason for consultation: left left wound cellulitis pyodermus gangrenosum Has provider been notified: No 11/27/23 13:42 Consult to Hematology / Oncology Routine Consulting Provider: Celi Burgos Reason for consultation: coagulopathy not correcting Has provider been notified: No 12/03/23 14:45 Consult to Gastroenterology Routine Consulting Provider: [facility] Reason for consultation: Pancreatitis, ? gastric outlet obstruction Has provider been notified: No 12/06/23 17:27 Consult to Nephrology Routine Consulting Provider: [facility] Reason for consultation: hypernatremia 12/06/23 17:34 Consult to Infectious Diseases Routine Consulting Provider: [facility] Reason for consultation: multiple positive blood cx from LE wounds <Katelyn Fraser NP - Last Filed: 12/15/23 13:39> DS: Diagnosis Discharge Diagnosis (1) Metabolic encephalopathy: Status: Acute <Katelyn Fraser NP - Last Filed: 12/15/23 13:39> (2) Pulmonary aspiration: Status: Acute <Katelyn Fraser NP - Last Filed: 12/15/23 13:39> DS: Summary Hospital Course Hospital Course: History and physical as per admitting provider. 73 years old male with past medical history aortic stenosis, atrial fibrillation was apparently normal last night when he went to bed. He woke up around 2 in the morning to use the restroom but felt dizzy could not walk so called EMS. Dizziness was sudden in onset, progressive, associated with headaches and lower abdominal pain, denies any fever, denies any cough. Upon arrival to the ED he was found to be hypotensive needing vasopressor support, anemic with hemoglobin down to 8.4 from a baseline of 13, INR greater than 26 and an ARABELLA with creatinine of 4.9. He takes Coumadin for the management of atrial fibrillation. underlying aortic stenosis, AFib on anticoagulation admitted on 11/23/2023 with dizziness and weakness.? On ER evaluation patient hypotensive with poor response to initial IV fluid resuscitation requiring pressor support.? Also, with significant coagulopathy with INR greater than 26 acute renal failure, left lower extremity cellulitis with hospital course complicated by pancreatitis with large volume emesis with resultant aspiration and cardiac arrest with successful resuscitation after 7 minutes of CPR, intubated during the code extubated 024.? On 12/01/2023 with pulmonary aspirations requiring re-intubation.? CT abdomen/pelvis with low-grade pancreatitis and duodenal narrowing.? Extubated 12/03/2023. Pt failed swallow evaluation, currently receiving tube feeds through NGT. Attempted to switch to NJT but IR was unable to advance the tube into jejunum. The patient taken off pressors and transferred to [facility] floor.? Cardiac arrest on 11/26/2023. Patient had large amount of vomitus and aspirated going into PEA arrest, code blue called, patient regained ROSC after 7 minutes of CPR Patient intubated and ventilated, extubated on 11/29/23, reintubated on 12/01/2023 due to ongoing aspiration then subsequently extubated on 12/03/2023 Acute blood loss anemia secondary to GI bleed due to supratherapeutic INR, greater than 26 on admission. Treated with packed red blood cells and FFP Hemoglobin dropped 5.7 points on admission. No clear source of bleeding found. Discussed with GI nothing to do at this time diagnostically. 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 All medications were stopped and prescriptions were sent for Morphine and lorazepam as needed. Patient discharged with nash catheter and rectal tube for ease of care. Treated medical problems: Hypomagnesemia, repleted and resolved Hypokalemia. Repleted and resolved Diarrhea Rectal tube check stool studies and cdiff Septic shock versus hemorrhagic shock with severe coagulopathy. Resolved INR of 26 on admission Treated aggressively with packed red blood cells and FFP transfusion to correct coagulopathy s/p Levophed in the ICU for vasopressor support ARABELLA. 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 Resolved With partial gastric outlet obstruction Seen by GI <Katelyn Fraser NP - Last Filed: 12/15/23 13:39> Time Attestation Discharge Coordination Time (in mins): 45 <Yoni Petty MD - Last Filed: 12/10/23 09:26> Quality: Safe Use of Opioids Does Pt have an Active Cancer Diagnosis on the Problem List?: No <Yoni Petty MD - Last Filed: 12/10/23 09:26> Quality: Stroke Does the patient have a stroke diagnosis?: No <Yoni Petty MD - Last Filed: 12/10/23 09:26> Physical Exam Vital Signs: Vital Signs: Last Vital Signs Temp 97.9 F 12/07/23 15:40 Pulse 81 12/07/23 15:40 Resp 20 12/07/23 15:40 BP 119/63 12/07/23 15:40 Pulse Ox 95 12/07/23 15:40 O2 Del Method Nasal Cannula 12/07/23 15:40 O2 Flow Rate 2 12/07/23 15:40 FiO2 30 12/03/23 11:10 BMI result Body Mass Index 42.7 <Katelyn Fraser NP - Last Filed: 12/15/23 13:39> Appearing in no acute distress head is normocephalic atraumatic eyes pupils are PERRLA sclera is anicteric mouth throat mucous membranes are intact and moist neck is supple no lymphadenopathy, no JVD noted lung sounds are clear to auscultation heart regular rate rhythm, clear S1, S2 positive bowel sounds, abdomen is soft, nontender neuro patient is alert x3, no focal deficits Chronic leg wounds bilaterally nash catheter rectal tube <Katelyn Fraser NP - Last Filed: 12/15/23 13:39> DS: Data Data Completed and Pending Completed studies during hospitalization [Text1]: Procedures Drainage of Left Lower Leg Skin, External Approach (07/22/21) <Katelyn Fraser NP - Last Filed: 12/15/23 13:39> Labs on day of discharge: Laboratory Results - last 24 hr 12/06/23 12/06/23 12/07/23 16:14 17:30 11:59 POC Glucose 116 H Stl C. cayetanensis PCR Not Detected Stool Rotavirus A PCR Not Detected Stl Adenov F 40/41 PCR Not Detected Stool Astrovirus (PCR) Not Detected Stool Campylobacter PCR Not Detected Stool Cryptosporidium PCR Not Detected Stl Sh Tox Pr E STEC PCR Not Detected Stool E coli O157 PCR Not applicable Stl Enterotoxigenic E PCR Not Detected Stool EPEC (PCR) Not Detected Stool EAEC (PCR) Not Detected Stl E. histolytica PCR Not Detected Stool Giardia Lamblia PCR Not Detected Stl P. shigelloides PCR Not Detected Stool Salmonella PCR Not Detected Stool Sapovirus (PCR) Not Detected Stl Shigella/EIEC PCR Not Detected St Y.enterocolitica PCR Not Detected Stool Vibrio (PCR) Not Detected Stl Vibrio cholerae PCR Not Detected Stl Norovirus GI/GII PCR See Comment Respiratory Panel [place] See Note Adenovirus (Rapid PCR) Not Detected B.pert (TEM-PCR) Not Detected B.parapertussis DNA PCR Not Detected C. pneumoniae DNA (PCR) Not Detected Coronavirus OC43 (PCR) Not Detected Coronavirus HKU1 (PCR) Not Detected Coronavirus 229E (PCR) Not Detected Coronavirus NL63 (PCR) Not Detected Human Metapneumovir PCR Not Detected Influenza A (RT-PCR) Not Detected Influenza B (RT-PCR) Not Detected M. pneumoniae (PCR) Not Detected Parainfluenza 1 (PCR) Not Detected Parainfluenza 2 (PCR) Not Detected Parainfluenza 3 (PCR) Not Detected Parainfluenza 4 (PCR) Not Detected RSV (PCR) Not Detected Entero/Rhino (PCR) Not Detected SARS-CoV-2 RNA (RT-PCR) Not Detected Preliminary micro results at discharge 12/06/23 15:11 Blood Culture - Preliminary Blood - Venous No growth after 24 hours. 12/06/23 15:11 Blood Culture - Preliminary Blood - Venous No growth after 24 hours. 12/06/23 Unknown Urine Culture - Preliminary Urine clean catch - Urine villa top Yeast <Katelyn Fraser NP - Last Filed: 12/15/23 13:39> Discharge Plan Discharge Anticipated Discharge Date/Time: 12/08/23 07:20 <Katelyn Fraser NP - Last Filed: 12/15/23 13:39> Patient Disposition: Hospice - Home <Katelyn Fraser NP - Last Filed: 12/15/23 13:39> Discharge Diagnosis: Severe sepsis/septic shock/hemorrhagic shock Healthcare associated pneumonia Pyoderma gangrenosa Acute blood loss anemia GI bleed Supratherapeutic INR Hypomagnesemia Hypokalemia Diarrhea ARABELLA Cardiac arrest Group a Streptococcus pyogenes bacteremia Pancreatitis <Katelyn Fraser NP - Last Filed: 12/15/23 13:39> Severe sepsis/septic shock/hemorrhagic shock Healthcare associated pneumonia Pyoderma gangrenosa Acute blood loss anemia GI bleed Supratherapeutic INR Hypomagnesemia Hypokalemia Diarrhea ARABELLA Cardiac arrest Group a Streptococcus pyogenes bacteremia Pancreatitis <Yoni Petty MD - Last Filed: 12/10/23 09:26> Referrals: [facility] [Outside] - 1 Week Reji Delgado FNP- [Primary Care Provider] - 1 Week <Katelyn Fraser NP - Last Filed: 12/15/23 13:39> Discharge Medications: New morphine concentrate 100 mg/5 mL (20 mg/mL) solution 5 mg PO Q3H PRN (Reason: pain) Qty: 30 0RF Rx Instructions: Partial Fill upon patient request. Hospice medication lorazepam 0.5 mg tablet 0.5 mg PO Q6H PRN (Reason: anxiety) Qty: 16 0RF Rx Instructions: Hospice medication Discontinued hydrocortisone 2.5 % cream 1 appl topical BID PRN (Reason: skin irritation) Qty: 20 0RF warfarin 2.5 mg tablet 1.25 mg PO DAILY Qty: 90 1RF Protocol: Dose Management Condition: Thursday (Week One) Dose/Route: 1.25 mg Instruction: 0.5 x 2.5 mg tablets Condition: Thursday Dose/Route: 1.25 mg Instruction: 0.5 x 2.5 mg tablets Condition: Thursday Dose/Route: 1.25 mg Instruction: 0.5 x 2.5 mg tablets Condition: Thursday Dose/Route: 1.25 mg Instruction: 0.5 x 2.5 mg tablets Condition: Dose/Route: 1.25 mg Instruction: 0.5 x 2.5 mg tablets Condition: Thursday Dose/Route: 0 mg Instruction: 0 tablets Condition: Thursday Dose/Route: 1.25 mg Instruction: 0.5 x 2.5 mg tablets Condition: Thursday (Week Two) Dose/Route: 1.25 mg Instruction: 0.5 x 2.5 mg tablets Condition: Thursday Dose/Route: 1.25 mg Instruction: 0.5 x 2.5 mg tablets Condition: Thursday Dose/Route: 1.25 mg Instruction: 0.5 x 2.5 mg tablets Condition: Thursday Dose/Route: 1.25 mg Instruction: 0.5 x 2.5 mg tablets Condition: Dose/Route: 1.25 mg Instruction: 0.5 x 2.5 mg tablets Condition: Thursday Dose/Route: 0 mg Instruction: 0 tablets Condition: Thursday Dose/Route: 1.25 mg Instruction: 0.5 x 2.5 mg tablets Protocol Text: Adjustment Start Date: Thursday10/30/23 INR Value: 2.2 INR Date: 10/30/23 Recheck Date: 11/27/23 Additional Instructions: INR is in range continue usual dosing balance greens and reds in diet Rx Instructions: Adjust dosing as needed per Anticoagulation Clinic instructions. furosemide [Lasix] 40 mg tablet 40 mg PO DAILY Qty: 90 1RF Patient Comments: Patient states he recently stopped taking, due to increase in bathroom visits, and unable to ambulate to the bathroom. atorvastatin 10 mg tablet 10 mg PO BEDTIME 90 Days Qty: 90 1RF metoprolol tartrate 50 mg tablet 50 mg PO .COMPLEX 90 Days Qty: 270 3RF Rx Instructions: 50 mg orally 2 tabs in am and 1 in pm; ( may not need refill yet) calcium carbonate [Tums] 200 mg calcium (500 mg) Tablet,Chewable 1,000 mg PO BID PRN (Reason: prior to ibuprofen) ibuprofen 200 mg Tablet 400 mg PO BID melatonin 10 mg Tablet,Disintegrating 10 mg PO BEDTIME oxycodone 10 mg tablet 10 mg PO DAILY PRN (Reason: pain-during wound treatments) 30 Days Qty: 30 0RF Rx Instructions: please take one tab 45 minutes before wound treatments <Katelyn Fraser NP - Last Filed: 12/15/23 13:39> Discharge Orders: Discharge Order (Routine); Ordered 12/08/23 Ordered By: Katelyn Fraser <Katelyn Fraser NP - Last Filed: 12/15/23 13:39> Diet: Advance to usual diet <Katelyn Fraser NP - Last Filed: 12/15/23 13:39> Advance to usual diet <Yoni Petty MD - Last Filed: 12/10/23 09:26> Activity on Discharge: As tolerated <Katelyn Fraser NP - Last Filed: 12/15/23 13:39> As tolerated <Yoni Petty MD - Last Filed: 12/10/23 09:26> Stand Alone Forms: Patient Portal Discharge page <Katelyn Fraser NP - Last Filed: 12/15/23 13:39> Print Language: Sinhala <Katelyn Fraser NP - Last Filed: 12/15/23 13:39> Care Plan Goals: Plan is home with hospice services. You will be sent home with medications for pain and anxiety. You may use these medications as needed. <Katelyn Fraser NP - Last Filed: 12/15/23 13:39> Health Concerns: Severe sepsis/septic shock/hemorrhagic shock Healthcare associated pneumonia Pyoderma gangrenosa Acute blood loss anemia GI bleed Supratherapeutic INR Hypomagnesemia Hypokalemia Diarrhea ARABELLA Cardiac arrest Group a Streptococcus pyogenes bacteremia Pancreatitis <Katelyn Fraser NP - Last Filed: 12/15/23 13:39> Plan of Treatment: Home with hospice Take all medications as prescribed <Katelyn Fraser NP - Last Filed: 12/15/23 13:39> Assessment: See discharge summary <Katelyn Fraser NP - Last Filed: 12/15/23 13:39> Discharge Date/Time: 12/08/23 13:08 <Katelyn Fraser NP - Last Filed: 12/15/23 13:39>
[2023-12-08] MEDS: 0.9 % Sodium Chloride Flush 3 ML SYRINGE IVFLUSH (08:41)
--- NOTE | 2023-12-08 09:47 | PM.CNNEP ---
History of Present Illness Reason for Consult Consult date: 12/21/23 Reason for consult: Hypernatremia Chief Complaint Chief complaint: septic shock History of Present Illness Narrative: 73 years old male with past medical history aortic stenosis, atrial fibrillation Consult requested for-hypernatremia Review of Systems Review of Systems Yes Unobtainable due to mental status [facility] Past Medical History Medical History (Updated 12/16/23 @ 00:02 by Background Daemon) Bilateral kidney stones Severe aortic stenosis Hemorrhagic shock Chronic ulcer of leg Atrial fibrillation Abscess of knee, left Moderate aortic stenosis Persistent atrial fibrillation Atherosclerosis of [place] coronary artery of [place] heart with angina pectoris Dyslipidemia Sleep apnea Reactive depression Anxiety HTN (hypertension) Family History Family History Other Brain cancer Surgical History Surgical History (Updated 12/16/23 @ 00:02 by Background Daemon) History of incision and drainage Hx of carpal tunnel repair Status post ablation of incompetent vein using laser (~01/2022) History of revision of total replacement of left knee joint (~04/2016) History of total left knee replacement (~11/2015) History of evacuation of hematoma (~05/2015) History of total right knee replacement (TKR) (~04/2015) Social History Social History Household Members: Family Housing: House Do you presently have visiting nurse or other home services: Yes ([facility]) Alcohol intake: current Alcohol intake frequency: a few times a week Alcohol type: beer Comment: two canes Patient Tobacco Use Status: Former Tobacco user Years Smoked: 45+/- e-Cigarette/Vaping Use: Never Used Second Hand Smoke Exposure: No Substance Use Type: Marijuana Advance Directives Date on File: 03/05/22 service: No Current occupational status: previously employed and retired 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 Current occupational exposures/hazards: No Cognitive needs: No Hearing needs: No Vision needs: Yes Meds Allergies Allergy/AdvReac Type Severity Reaction Status Date / Time No Known Allergies Allergy Verified 11/23/23 03:43 [No Known Allergies*] Active Medications: Current Medications Acetaminophen (Acetaminophen 325 Mg Tablet) 650 mg PO Q6H PRN PRN Reason: Fever Last Admin: 12/07/23 01:13 Dose: 650 mg Heparin Sodium (Porcine) (Heparin Sodium,Porcine 5,000 Unit/Ml Vial) 5,000 unit SUBCUT Q8H [facility] Last Admin: 12/08/23 08:40 Dose: Not Given Lorazepam (Lorazepam 2 Mg/Ml Vial) 1 mg IVPUSH Q6H PRN PRN Reason: anxiety/restlessness Morphine Sulfate (Morphine Sulfate 2 Mg/Ml Cartridge) 2 mg IVPUSH Q4H PRN; Protocol PRN Reason: Pain, Moderate(Pain Scale 4-6) Ondansetron HCl (Ondansetron Hcl 4 Mg/2 Ml Vial) 4 mg IVPUSH Q6H PRN PRN Reason: Nausea and Vomiting Last Admin: 11/25/23 02:52 Dose: 4 mg Pharmacy Consult (Consult Rx Parenteral Nutrition Ordering) 1 each MISCELLANE DAILY PRN PRN Reason: Consult order Scopolamine (Scopolamine 1.5 Mg Patch.Td.3) 1.5 mg EAR-BEHIND Q72H [facility] Last Admin: 12/07/23 11:12 Dose: 1.5 mg Sodium Chloride (0.9 % Sodium Chloride Flush 3 Ml Syringe) 3 ml IVFLUSH QSHIFT [facility] Last Admin: 12/08/23 08:41 Dose: 3 ml Physical Exam Vital Signs: Last Vital Signs Temp 97.9 F 12/07/23 15:40 Pulse 81 12/07/23 15:40 Resp 20 12/07/23 15:40 BP 119/63 12/07/23 15:40 Pulse Ox 95 12/07/23 15:40 O2 Del Method Nasal Cannula 12/07/23 15:40 O2 Flow Rate 2 12/07/23 15:40 FiO2 30 12/03/23 11:10 BMI result Body Mass Index 42.7 Awake. Comfortable. Neck is supple. Mucosa moist. Lungs bilateral scattered rhonchi. Heart S1-S2 heard no gallop. Abdomen soft. Extremities no edema. No involuntary movements. No myoclonus. Results Lab Results 12/07/23 06:01 12/07/23 06:01 Lab results: Chemistry 12/05/23 12/06/23 12/07/23 15:09 15:12 06:01 Sodium 159 H 150 H 152 H Potassium 2.7 L* D 2.7 L* 3.6 D Carbon Dioxide 28 19 L 22 BUN 36 H 27 H 32 H Creatinine 1.58 H 1.21 1.54 H Calcium 8.1 L 6.6 L D 8.2 L D Phosphorus 2.6 L 1.8 L Hematology 12/05/23 12/06/23 12/07/23 15:17 15:12 06:01 WBC 6.6 6.3 6.8 Hgb 8.2 L 7.0 L* 8.6 L D Plt Count 251 163 D 258 D Urinalysis 12/06/23 16:14 Urine Color Dark Yellow Urine Appearance Cloudy Urine pH 5.5 Ur Specific [place] 1.020 Urine Protein 100 (2+) H Urine Glucose (UA) Negative Urine Ketones Negative Urine Blood Moderate (2+) H Urine Nitrite Negative Ur Leukocyte Esterase Moderate (2+) H Urine RBC >20 H Urine WBC >50 H Ur Squamous Epith Cells 0-2 Hyaline Casts 0-2 Assessment and Plan (1) Hypernatremia: Status: Acute Plan 73-year-old man with hypernatremia. Hypernatremia due to free water deficit Replace free water. Correct serum sodium at a rate of 0.5-1 millimole per L/hr. He is acute kidney injury due to dehydration. She will follow along with the team. Procedures Date of Service Date of Service: 12/21/23
--- NOTE | 2023-12-08 10:21 | MHC.CM.PN ---
Pt has been medically cleared for DC, he will go home via ambulance today and have services from [facility].
[2023-12-08 13:26] LABS: Norovirus Stool PCR NOT DETECTED
== END 2023-12-08 13:08 | disposition hospice, home (50) | DRG 871 ==
LOC: HO.ED 06:28 → HO.EDOVER 06:39 → HO.ICU 07:09 → HO.IMC 12-06 05:09
PROVIDERS: Internal Medicine Critical Care Medicine; Internal Medicine Pulmonary Disease; Nurse Practitioner Family; Physician Assistant Medical; Student in an Organized Health Care Education/Training Program; Admitting Provider Registered Nurse Community Health; Emergency Provider Emergency Medicine Emergency Medical Services; PCP Nurse Practitioner Family; Visit Provider Nurse Practitioner Acute Care
DX: A41.9 Sepsis, unspecified organism (principal); G93.41 Metabolic encephalopathy; I46.8 Cardiac arrest due to other underlying condition; N17.0 Acute kidney failure with tubular necrosis; R65.21 Severe sepsis with septic shock; R57.8 Other shock; K85.90 Acute pancreatitis without necrosis or infection, unspecified; J69.0 Pneumonitis due to inhalation of food and vomit; K29.81 Duodenitis with bleeding; D62 Acute posthemorrhagic anemia; Z68.41 Body mass index [BMI] 40.0-44.9, adult; L88 Pyoderma gangrenosum; J98.11 Atelectasis; E87.0 Hyperosmolality and hypernatremia; L03.116 Cellulitis of left lower limb; K31.1 Adult hypertrophic pyloric stenosis; L97.829 Non-pressure chronic ulcer of other part of left lower leg with unspecified severity; L97.819 Non-pressure chronic ulcer of other part of right lower leg with unspecified severity; E83.42 Hypomagnesemia; I87.2 Venous insufficiency (chronic) (peripheral); Z66 Do not resuscitate; Z51.5 Encounter for palliative care; B95.0 Streptococcus, group A, as the cause of diseases classified elsewhere; R19.7 Diarrhea, unspecified; I48.91 Unspecified atrial fibrillation; E87.6 Hypokalemia; B95.2 Enterococcus as the cause of diseases classified elsewhere; B96.89 Other specified bacterial agents as the cause of diseases classified elsewhere; B96.83 Acinetobacter baumannii as the cause of diseases classified elsewhere; T17.918A Gastric contents in respiratory tract, part unspecified causing other injury, initial encounter; E66.01 Morbid (severe) obesity due to excess calories; R79.1 Abnormal coagulation profile; I35.0 Nonrheumatic aortic (valve) stenosis; Z20.822 Contact with and (suspected) exposure to COVID-19; Z87.891 Personal history of nicotine dependence; Z79.01 Long term (current) use of anticoagulants; Z79.899 Other long term (current) drug therapy
CPT/HCPCS: 36415; 70450; 71045; 71250; 73700; 74176; 75984; 76705; 76882; 80048; 80053; 80202; 81001; 82040; 82272; 82803; 82947; 83010; 83605; 83615; 83690; 83735; 83880; 83935; 84100; 84300; 84478; 84484; 85007; 85014; 85018; 85025; 85027; 85045; 85379; 85384; 85610; 86140; 86141; 86850; 86880; 86900; 86901; 86923; 87040; 87070; 87077; 87086; 87088; 87147; 87186; 87205; 87493; 87507; 87633; 92610; 93005; 93306; 93971; 94002; 94003; 94640; 94799; 99285; C1758; C9113; J0171; J0282; J0283; J0613; J1160; J1170; J1642; J1644; J1836; J1939; J1940; J2371; J2405; J2543; J2704; J2919; J3010; J3370; J3430; J3475; J3480; J7168; P9016; P9017; P9047

== ENCOUNTER → 2023-11-23 03:16 | Outpatient (BNV) | payer MEDICARE, SELFPAY | PROVIDERS: Admitting Provider Registered Nurse Community Health; Emergency Provider Emergency Medicine Emergency Medical Services; PCP Nurse Practitioner Family; Visit Provider Internal Medicine Cardiovascular Disease | DX: I48.91 Unspecified atrial fibrillation (principal); I35.0 Nonrheumatic aortic (valve) stenosis; I36.1 Nonrheumatic tricuspid (valve) insufficiency; R93.1 Abnormal findings on diagnostic imaging of heart and coronary circulation | CPT/HCPCS: 93010; 93306 ==

== ENCOUNTER 2023-11-23 06:34 | Outpatient (BNV) | payer MEDICARE, SELFPAY | END 2023-12-06 15:51 | PROVIDERS: Admitting Provider Registered Nurse Community Health; Emergency Provider Emergency Medicine Emergency Medical Services; PCP Nurse Practitioner Family; Visit Provider Internal Medicine Cardiovascular Disease | DX: R94.31 Abnormal electrocardiogram [ECG] [EKG] (principal) | CPT/HCPCS: 93010 ==

== ENCOUNTER 2023-11-23 06:34 | Outpatient (BNV) | payer MEDICARE, SELFPAY | END 2023-12-04 14:30 | PROVIDERS: Admitting Provider Registered Nurse Community Health; Emergency Provider Emergency Medicine Emergency Medical Services; PCP Nurse Practitioner Family; Visit Provider Physician Assistant Surgical | DX: K56.600 Partial intestinal obstruction, unspecified as to cause (principal) | CPT/HCPCS: 43752 ==

== ENCOUNTER → 2023-11-23 06:34 | Outpatient (BNV) | payer MEDICARE, SELFPAY | PROVIDERS: Admitting Provider Registered Nurse Community Health; Emergency Provider Emergency Medicine Emergency Medical Services; PCP Nurse Practitioner Family; Visit Provider Nurse Practitioner Acute Care | DX: G93.41 Metabolic encephalopathy (principal) | CPT/HCPCS: 99232; 99239; 99497; 99499 ==

== ENCOUNTER → 2023-11-23 06:34 | Outpatient (BNV) | payer MEDICARE, SELFPAY | PROVIDERS: Admitting Provider Registered Nurse Community Health; Emergency Provider Emergency Medicine Emergency Medical Services; PCP Nurse Practitioner Family; Visit Provider Surgery | DX: L97.909 Non-pressure chronic ulcer of unspecified part of unspecified lower leg with unspecified severity (principal) | CPT/HCPCS: 97602; 99222; 99232 ==

== ENCOUNTER → 2023-11-23 06:34 | Outpatient (BNV) | payer MEDICARE, SELFPAY | PROVIDERS: Admitting Provider Registered Nurse Community Health; Emergency Provider Emergency Medicine Emergency Medical Services; PCP Nurse Practitioner Family; Visit Provider Internal Medicine | DX: K85.90 Acute pancreatitis without necrosis or infection, unspecified (principal); K31.1 Adult hypertrophic pyloric stenosis | CPT/HCPCS: 99222 ==

== ENCOUNTER → 2023-11-23 06:34 | Outpatient (BNV) | payer MEDICARE, SELFPAY | PROVIDERS: Admitting Provider Registered Nurse Community Health; Emergency Provider Emergency Medicine Emergency Medical Services; PCP Nurse Practitioner Family; Visit Provider Internal Medicine Hypertension Specialist | DX: E87.0 Hyperosmolality and hypernatremia (principal); N17.9 Acute kidney failure, unspecified | CPT/HCPCS: 99222 ==

== ENCOUNTER → 2023-11-23 06:34 | Outpatient (BNV) | payer MEDICARE, SELFPAY | PROVIDERS: Admitting Provider Registered Nurse Community Health; Emergency Provider Emergency Medicine Emergency Medical Services; PCP Nurse Practitioner Family; Visit Provider Internal Medicine Pulmonary Disease | DX: L97.929 Non-pressure chronic ulcer of unspecified part of left lower leg with unspecified severity (principal); R57.9 Shock, unspecified; I48.91 Unspecified atrial fibrillation; N17.9 Acute kidney failure, unspecified; K85.90 Acute pancreatitis without necrosis or infection, unspecified; T17.900A Unspecified foreign body in respiratory tract, part unspecified causing asphyxiation, initial encounter | CPT/HCPCS: 31502; 99233; 99291 ==

== ENCOUNTER → 2023-11-23 06:34 | Outpatient (BNV) | payer MEDICARE, SELFPAY | PROVIDERS: Admitting Provider Registered Nurse Community Health; Emergency Provider Emergency Medicine Emergency Medical Services; PCP Nurse Practitioner Family; Visit Provider Internal Medicine | DX: D68.9 Coagulation defect, unspecified (principal) | CPT/HCPCS: 99222 ==

== ENCOUNTER → 2023-11-23 06:34 | Outpatient (BNV) | payer MEDICARE, SELFPAY | PROVIDERS: Admitting Provider Registered Nurse Community Health; Emergency Provider Emergency Medicine Emergency Medical Services; PCP Nurse Practitioner Family; Visit Provider Internal Medicine Critical Care Medicine | DX: K85.90 Acute pancreatitis without necrosis or infection, unspecified (principal); I48.91 Unspecified atrial fibrillation; N17.9 Acute kidney failure, unspecified; D68.9 Coagulation defect, unspecified; A41.9 Sepsis, unspecified organism; K92.2 Gastrointestinal hemorrhage, unspecified; J18.9 Pneumonia, unspecified organism; I46.9 Cardiac arrest, cause unspecified | CPT/HCPCS: 99232; 99291; 99499 ==